=== PATIENT | male | born 1945 | race American Indian/Alaskan Native ===

== ENCOUNTER 2020-02-17 14:53 | Inpatient (IN) | payer MEDICARE ==
[2020-02-17] MEDS ORDERED: MINERAL OIL/PETROLATUM, WHITE OPHTH OINT 3.5 GM OU PRN (15:12)
[2020-02-17] MEDS ORDERED: LIP THERAPY VASELINE TP PRN (15:12)
[2020-02-17] MEDS ORDERED: SODIUM CHLORIDE 0.9% 1000 ML 1,000 ML IV ONE ×3 (15:13→22:13)
[2020-02-17] MEDS ORDERED: SODIUM CHLORIDE 0.45% 1000 ML 1,000 ML IV ONE (15:16)
--- NOTE | 2020-02-17 15:57 | Emergency Department Report ---
HPI <SNEHAL PAINTING III - Last Filed: 02/17/20 22:50> - HPI HPI: This is a 74-year-old -[place] male presents to the emergency department via EMS from his [facility] with complaint of lethargy and decreased oxygen saturation. Patient was found to have an oxygen saturation in the 60s on room air. EMS arrived and gave him bag valve ventilation. He was also found to have a GCS of 3 but they were unable to intubate as the patient's jaw was clenched. He has a past medical history of CVA with left-sided hemiparesis, diabetes, hypertension, dementia, dyslipidemia, PVD. Patient was recently admitted here for similar symptoms. He was found to be Covid 19+ earlier in the month but had 2- recent tests here. <DANIELLE VALERO - Last Filed: 02/18/20 10:10> - General Time Seen by Provider: 02/17/20 15:10 ED Past Medical Hx <SNEHAL PAINTING III - Last Filed: 02/17/20 22:50> - Past Medical History Hx Hypertension: Yes Hx Diabetes: Yes Additional medical history: gout, hyperlipedemia, PVD, syncope, Hemiplegia - Social History Smoking Status: Unknown if ever smoked <DANIELLE VALERO - Last Filed: 02/18/20 10:10> - Medications Home Medications: Home Medications Medication Instructions Recorded Confirmed Last Taken Type Acetaminophen [Acetaminophen TAB] 650 mg PO Q8H PRN 05/02/15 02/18/20 Unknown History Albuterol Sulfate [Albuterol 0.63% 0.63 mg IH Q6H PRN 05/02/15 02/18/20 Unknown History NEBS] Aspirin [Aspirin BABY CHEW TAB] 81 mg PO DAILY 05/02/15 02/18/20 05/01/15 History AtorvaSTATin [Lipitor] 20 mg PO QHS 05/02/15 02/18/20 05/01/15 History Docusate Sodium [Colace CAP] 100 mg PO BID 05/02/15 02/18/20 05/02/15 History Insulin Lispro [HumaLOG VIAL] See Protocol SUB-Q ACHS 05/02/15 02/18/20 05/01/15 History amLODIPine 5 mg PO DAILY 05/02/15 02/18/20 05/01/15 History ED Review of Systems ROS: Stated complaint: RESP ARREST/UNRESPONSIVE Other details as noted in HPI <SNEHAL PAINTING III - Last Filed: 02/17/20 22:50> ROS: Stated complaint: RESP ARREST/UNRESPONSIVE Other details as noted in HPI Comment: Unobtainable due to pts medical conditions <DANIELLE VALERO - Last Filed: 02/18/20 10:10> Physical Exam - Physical Exam Vital Signs: Vital Signs 02/17/20 02/17/20 02/17/20 15:00 15:20 15:30 Pulse Rate 90 Respiratory 12 Rate Blood Pressure 60/42 Blood Pressure 64/42 [Right] O2 Sat by Pulse 97 92 100 Oximetry 02/17/20 02/17/20 02/17/20 15:31 15:45 16:01 Pulse Rate 85 86 91 H Respiratory 29 H 29 H 31 H Rate Blood Pressure 197/159 197/159 Blood Pressure [Right] O2 Sat by Pulse 100 97 Oximetry 02/17/20 02/17/20 02/17/20 16:15 16:31 16:45 Pulse Rate 93 H 93 H 92 H Respiratory 30 H 28 H 31 H Rate Blood Pressure 197/159 197/159 197/159 Blood Pressure [Right] O2 Sat by Pulse 89 91 Oximetry 02/17/20 02/17/20 02/17/20 17:01 17:15 17:31 Pulse Rate 90 85 85 Respiratory 27 H 28 H 24 Rate Blood Pressure 76/53 76/53 76/53 Blood Pressure [Right] O2 Sat by Pulse 94 98 96 Oximetry 02/17/20 02/17/20 02/17/20 17:45 18:01 18:15 Pulse Rate 87 89 Respiratory 28 H 28 H Rate Blood Pressure 76/53 108/89 104/86 Blood Pressure [Right] O2 Sat by Pulse 99 100 78 L Oximetry 02/17/20 02/17/20 02/17/20 18:30 18:31 18:45 Pulse Rate 80 85 83 Respiratory 20 23 Rate Blood Pressure 104/86 56/25 Blood Pressure [Right] O2 Sat by Pulse 100 93 100 Oximetry 02/17/20 02/17/20 02/17/20 19:00 19:15 19:30 Pulse Rate 84 86 83 Respiratory 22 25 H 27 H Rate Blood Pressure 51/26 58/24 56/30 Blood Pressure [Right] O2 Sat by Pulse 99 96 98 Oximetry 02/17/20 02/17/20 02/17/20 19:43 19:45 20:01 Pulse Rate 85 85 61 Respiratory 27 H 31 H Rate Blood Pressure 57/36 57/34 57/34 Blood Pressure [Right] O2 Sat by Pulse 100 100 100 Oximetry 02/17/20 02/17/20 02/17/20 20:15 21:18 21:35 Pulse Rate 101 H Respiratory 25 H Rate Blood Pressure 57/34 Blood Pressure 116/88 83/54 [Right] O2 Sat by Pulse 100 Oximetry <SNEHAL PAINTING III Jennifer - Last Filed: 02/17/20 22:50> - Physical Exam Physical Exam: GENERAL: Patient is ill-appearing and unresponsive. HENT: Normocephalic. Atraumatic. Patient has moist mucous membranes. EYES: Pupils equal reactive to light bilaterally. NECK: Supple. Trachea is midline. CHEST/LUNGS: There is some rhonchi heard. Shallow bradypnea with snoring respirations. There is respiratory distress noted. HEART/CARDIOVASCULAR: Regular. There is no tachycardia. ABDOMEN: Abdomen is soft, nontender. Patient has normal bowel sounds. There is no abdominal distention. SKIN: Skin is warm and dry. NEURO: Patient is unresponsive to verbal, tactile or painful stimuli. MUSCULOSKELETAL: Patient appears to have some right-sided atrophy consistent with his right-sided hemiplegia. <DANIELLE VALERO S - Last Filed: 02/18/20 10:10> ED Course Vital Signs 02/17/20 02/17/20 02/17/20 15:00 15:20 15:30 Pulse Rate 90 Respiratory 12 Rate Blood Pressure 60/42 Blood Pressure 64/42 [Right] O2 Sat by Pulse 97 92 100 Oximetry 02/17/20 02/17/20 02/17/20 15:31 15:45 16:01 Pulse Rate 85 86 91 H Respiratory 29 H 29 H 31 H Rate Blood Pressure 197/159 197/159 Blood Pressure [Right] O2 Sat by Pulse 100 97 Oximetry 02/17/20 02/17/20 02/17/20 16:15 16:31 16:45 Pulse Rate 93 H 93 H 92 H Respiratory 30 H 28 H 31 H Rate Blood Pressure 197/159 197/159 197/159 Blood Pressure [Right] O2 Sat by Pulse 89 91 Oximetry 02/17/20 02/17/20 02/17/20 17:01 17:15 17:31 Pulse Rate 90 85 85 Respiratory 27 H 28 H 24 Rate Blood Pressure 76/53 76/53 76/53 Blood Pressure [Right] O2 Sat by Pulse 94 98 96 Oximetry 02/17/20 02/17/20 02/17/20 17:45 18:01 18:15 Pulse Rate 87 89 Respiratory 28 H 28 H Rate Blood Pressure 76/53 108/89 104/86 Blood Pressure [Right] O2 Sat by Pulse 99 100 78 L Oximetry 02/17/20 02/17/20 02/17/20 18:30 18:31 18:45 Pulse Rate 80 85 83 Respiratory 20 23 Rate Blood Pressure 104/86 56/25 Blood Pressure [Right] O2 Sat by Pulse 100 93 100 Oximetry 02/17/20 02/17/20 02/17/20 19:00 19:15 19:30 Pulse Rate 84 86 83 Respiratory 22 25 H 27 H Rate Blood Pressure 51/26 58/24 56/30 Blood Pressure [Right] O2 Sat by Pulse 99 96 98 Oximetry 02/17/20 02/17/20 02/17/20 19:43 19:45 20:01 Pulse Rate 85 85 61 Respiratory 27 H 31 H Rate Blood Pressure 57/36 57/34 57/34 Blood Pressure [Right] O2 Sat by Pulse 100 100 100 Oximetry 02/17/20 02/17/20 02/17/20 20:15 21:18 21:35 Pulse Rate 101 H Respiratory 25 H Rate Blood Pressure 57/34 Blood Pressure 116/88 83/54 [Right] O2 Sat by Pulse 100 Oximetry - Reevaluation(s) Reevaluation #1: Patient was signed out to me from previous physician to follow-up on CT scan. Patient map above 65. Patient on ventilator. 02/17/20 20:08 Reevaluation #2: Patient had CT done. When patient returned from CT, the patient's blood pressure decreased. Patient will be started on epinephrine drip and given fluids. 02/17/20 22:01 Reevaluation #3: Patient's given fluids. Patient's blood pressure improved to a map of 90. We will give the patient another fluid bolus afterwards and hold the epinephrine drip. 02/17/20 22:[address] is back and shows no acute findings or intracranial hemorrhage. Patient will be started on a heparin drip. 02/17/20 22:41 - Consultations Consultation #1: Hospitalist consulted for admission. Hospitalist to admit patient. 02/17/20 22:41 Consultation #2: I discussed case with Dr. Garay, cardiology. Cardiology recommends heparin drip. 02/17/20 22:50 <SNEHAL PAINTING III - Last Filed: 02/17/20 22:50> - Procedure Description Procedures done: The patient presented without any IV or vascular access. I placed a right proximal tibial intraosseous line with the IO gun. Sterile s chavo flushed easily and there was blood and marrow return. - Central Line Placement Right Femoral Consent Obtained: emergent situation Time Out Performed: Yes Patient Placed on Monitor/Pulse Ox: Yes MD Prep: mask, gown, gloves Central Line Prep: Chlorhexidine scrub Ultrasound Used for Placement: Yes Central Line Lumen Inserted: triple Central Line Position: good blood return, all ports aspirated, flus, sutured in place with nyl Dressing Applied: Tegaderm, sterile gauze/tape Patient Tolerated Procedure: well Complications: none - Intubation Time Out Performed: Yes Paralytic: Succinylcholine Mg Given: 70 Laryngoscope: Selena Size: 4 Assist Device Used: Bougie ET Tube Size: 7.5 Tube Secured Depth (cm): 25 Tube Secured Location: lips Tube Placement Confirmation: visualized tube passing t, equal breath sounds bilat, confirmation by capnometr Patient Tolerated Procedure: well <DANIELLE VALERO - Last Filed: 02/18/20 10:10> ED Medical Decision Making - Lab Data Result diagrams: 02/17/20 16:28 02/17/20 16:28 - Radiology Data Radiology results: report reviewed CT HEAD WITHOUT CONTRAST INDICATION / CLINICAL INFORMATION: AMS. TECHNIQUE: All CT scans at this location are performed using CT dose reduction for ALARA by means of automated exposure control. COMPARISON: None available. FINDINGS: HEMORRHAGE: None. EXTRA-AXIAL SPACES: Prominent extra axial space. VENTRICULAR SYSTEM: Prominence of the bilateral lateral ventricular system including the temporal horns. Anterior bowing of the corpus callosum. CEREBRAL PARENCHYMA: Supra and infratentorial parenchymal volume loss. No evidence of acute large territory infarct. Periventricular and subcortical microvascular changes. MIDLINE SHIFT OR HERNIATION: None. CEREBELLUM / BRAINSTEM: No significant abnormality. ORBITS: Normal as visualized. SOFT TISSUES of HEAD: No significant abnormality. CALVARIUM: No significant abnormality. PARANASAL SINUSES / MASTOID AIR CELLS: Mucosal thickening of the bilateral maxillary sinuses. ADDITIONAL FINDINGS: None. IMPRESSION: 1. Enlargement of the ventricular system. Normal pressure hydrocephalus is a diagnostic consideration given the patient's clinical history. 2. No evidence of acute intracranial hemorrhage or large territory ischemia. <SNEHAL PAINTING III - Last Filed: 02/17/20 22:50> - Lab Data Result diagrams: 02/17/20 16:28 02/17/20 16:28 - EKG Data -: EKG Interpreted by Md EKG shows normal: sinus rhythm, axis, intervals (Prolonged MI interval), QRS complexes (Low voltage), ST-T waves Rate: normal - EKG Data When compared to previous EKG there are: previous EKG unavailable Interpretation: other (Sinus rhythm at 84 bpm, prolonged MI interval, normal axis, low voltage) - Medical Decision Making This patient presents to the emergency department from his nursing facility unresponsive and in respiratory distress. The patient was subsequently intubated. Chest x-ray shows some improvement of the previous pneumonia but he still has some faint bibasilar opacities. Patient started having some hypotension so he was given 2 L of IV fluid but as soon as the fluid stops the patient once again becomes hypotensive. Pressors were started and a central line was placed. Patient's labs shows a leukocytosis of 23,000, some anemia with a hemoglobin of 9, a lactic acidosis, respiratory alkalosis and metabolic acidosis, acute on chronic renal insufficiency and an elevated troponin level. Patient has a mild urinary tract infection and still has signs of the pneumonia. All this together appears consistent with sepsis with septic shock. Blood and urine cultures have been sent and the patient has been started on antibiotics. We are waiting on a CT scan of the head to be completed and if negative will consider heparin for the elevated troponin. Patient will be presented to the nighttime hospitalist for admission to the ICU. <DANIELLE VALERO - Last Filed: 02/18/20 10:10> Critical care attestation.: If time is entered above; I have spent that time in minutes in the direct care of this critically ill patient, excluding procedure time. <SNEHAL PAINTING III - Last Filed: 02/17/20 22:50> Critical Care Time: Yes Critical care time in (mins) excluding proc time.: 45 Critical care attestation.: If time is entered above; I have spent that time in minutes in the direct care of this critically ill patient, excluding procedure time. Critical care time was spent on this patient in doing his initial evaluation, multiple re-evaluati ons, ordering and interpretation of labs and imaging, IV fluid resuscitation for his hypotension, empiric IV antibiotics. Critical Care Time: 45 minutes <DANIELLE VALERO - Last Filed: 02/18/20 10:10> ED Disposition Is pt being admited?: Yes Does the pt Need Aspirin: No Time of Disposition: 22:41 <SNEHAL PAINTING III - Last Filed: 02/17/20 22:50> Is pt being admited?: Yes <DANIELLE VALERO - Last Filed: 02/18/20 10:10> Clinical Impression: Sepsis with multi-organ dysfunction, NSTEMI (non-ST elevated myocardial infarction), Septic shock, Lactic acidosis, Renal insufficiency, Hyperkalemia, Acute kidney injury Acute on chronic renal failure Qualifiers: Acute renal failure type: unspecified Chronic kidney disease stage: unspecified stage Qualified Code(s): N17.9 - Acute kidney failure, unspecified Urinary tract infection Qualifiers: Urinary tract infection type: site unspecified Hematuria presence: with hematuria Qualified Code(s): N39.0 - Urinary tract infection, site not specified Disposition: OP ADMIT IP TO THIS HOSP Condition: Critical
--- NOTE | 2020-02-17 16:01 | XRay Report ---
CHEST 1 VIEW INDICATION: ETT placement. COMPARISON: 02/06/2020 FINDINGS: Support devices: Endotracheal tube has been placed in satisfactory position with tip 1-2 cm above the trinh. Right IJ catheter and esophagogastric tube have been removed. Heart: Stable. Lungs/Pleura: There are mild bibasilar opacities, improved. No pneumothorax. There is probably a smal l right pleural effusion. IMPRESSION: 1. Endotracheal tube in satisfactory position. Signer Name: Chau Luis MD Signed: 02/17/2020 3:57 PM Workstation Name: [id number]
[2020-02-17 16:59] LABS: Hematocrit 28.4 % (35.5-45.6); Hemoglobin 9.1 gm/dl (11.8-15.2); Mean Corpuscular HGB Conc 32 % (32-34); Mean Corpuscular Volume 93 fl (84-94); Platelet Count 178 K/mm3 (140-440); Red Blood Count 3.07 M/mm3 (3.65-5.03); Red Cell Distribution Width 16.8 % (13.2-15.2)
[2020-02-17 17:07] LABS: Albumin 2.3 g/dL (3.9-5); Calcium 7.9 mg/dL (8.4-10.2)
[2020-02-17 17:10] LABS: Partial Thromboplastin Time 26.8 Sec. (24.2-36.6)
[2020-02-17 17:14] LABS: INR 1.19 (0.87-1.13)
[2020-02-17] MEDS ORDERED: SUCCINYLCHOLINE CHLORIDE 200 MG/10 ML INJ MDV IV ONE (18:02)
[2020-02-17 18:25] LABS: Basophils % (Manual) 0 % (0.0-1.8); Eosinophils % (Manual) 0 % (0.0-4.3); RBC Morphology Normal; Total Cells Counted 100
[2020-02-17] MEDS ORDERED: cefTRIAXone/NS 1 GM/50 ML 1 GM/50 ML BAG IV ONE (18:55)
[2020-02-17 18:58] LABS: ABG Base Excess -12.3 mmol/L (-2.0-3.0); ABG HCO3 12.5 mmol/L (20.0-26.0); ABG Methemoglobin 0.5 % (0.0-1.5); ABG Oxygen Saturation 99.5 % (95.0-99.0); ABG PCO2 25.8 mm Hg; ABG PH 7.303 pH Units (7.350-7.450)
[2020-02-17 19:02] LABS: ABG PO2 327.3 mm Hg (80.0-90.0)
[2020-02-17 19:16] LABS: Bacteria,Urine 1+ /HPF (Negative); Bilirubin,Urine NEG (Negative); Blood,Urine MOD (Negative); Color,Urine Yellow (Yellow); Urobilinogen,Urine < 2.0 mg/dL (<2.0)
[2020-02-17] MEDS ORDERED: NORepinephrine/NS 4 MG-250 ML 4 MG/250 ML BAG IV ONE (19:20)
[2020-02-17 19:28] LABS: C-Reactive Protein 18.2 mg/dL (0.00-1.30)
[2020-02-17] MEDS ORDERED: AZITHROMYCIN 500 MG in SODIUM CHLORIDE 0.9% 250ML 250 ML IV ONE (19:30)
[2020-02-17] MEDS: NORepinephrine/NS 4 MG-250 ML 4 MG/250 ML BAG IV SCH (19:38)
[2020-02-17] MEDS ORDERED: EPINEPHrine 1 MG/1 ML 8 MG in SODIUM CHLORIDE 0.9% 250ML 242 ML IV ONE (22:05)
[2020-02-17] MEDS ORDERED: SODIUM CHLORIDE 0.9% 1000 ML 1,000 ML ONE (22:08)
--- NOTE | 2020-02-17 22:20 | Cat Scan Report ---
CT HEAD WITHOUT CONTRAST INDICATION / CLINICAL INFORMATION: AMS. TECHNIQUE: All CT scans at this location are performed using CT dose reduction for ALARA by means of automated e xposure control. COMPARISON: None available. FINDINGS: HEMORRHAGE: None. EXTRA-AXIAL SPACES: Prominent extra axial space. VENTRICULAR SYSTEM: Prominence of the bilateral lateral ventricular system including the temporal hor ns. Anterior bowing of the corpus callosum. CEREBRAL PARENCHYMA: Supra and infratentorial parenchymal volume loss. No evidence of acute large ter ritory infarct. Periventricular and subcortical microvascular changes. MIDLINE SHIFT OR HERNIATION: None. CEREBELLUM / BRAINSTEM: No significant abnormality. ORBITS: Normal as visualized. SOFT TISSUES of HEAD: No significant abnormality. CALVARIUM: No significant abnormality. PARANASAL SINUSES / MASTOID AIR CELLS: Mucosal thickening of the bilateral maxillary sinuses. ADDITIONAL FINDINGS: None. IMPRESSION: 1. Enlargement of the ventricular system. Normal pressure hydrocephalus is a diagnostic consideration given the patient's clinical history. 2. No evidence of acute intracranial hemorrhage or large territory ischemia. Signer Name: Jorge Cantu MD Signed: 02/17/2020 10:16 PM Workstation Name: [id number]
[2020-02-17] MEDS ORDERED: HEPARIN 10,000 UNITS/10 ML VIAL IV ONE (22:39)
[2020-02-17] MEDS: HEPARIN/ 0.45% NACL DRIP 25,000 UNIT/500 ML BAG IV SCH (23:10)
[2020-02-18] MEDS ORDERED: fentaNYL 100 MCG/2 ML INJ ONE (01:27)
[2020-02-18] MEDS: fentaNYL 100 MCG/2 ML INJ IV PRN ×2 (02:20→02:30)
[2020-02-18] MEDS ORDERED: NORepinephrine/NS 4 MG-250 ML 4 MG/250 ML BAG IV ONE (02:23)
[2020-02-18] MEDS ORDERED: MAGNESIUM HYDROXIDE (MOM) ORAL LIQD UDC PO PRN (02:31)
[2020-02-18] MEDS ORDERED: SODIUM CHLORIDE 0.9% 1000 ML 1,000 ML IV SCH (02:45)
--- NOTE | 2020-02-18 02:52 | History and Physical Report ---
History of Present Illness Date of examination: 02/17/20 Date of admission: 02/17/20 22:42 Chief complaint: Lethargy History of present illness: Patient is a 74-year-old -Japanese male with known history of CVA with left hemiparesis, diabetes mellitus, hypertension, dyslipidemia, dementia and peripheral vascular disease brought into the emergency room by EMS from [facility] with a complaint of decreased oxygen saturation and lethargy. Oxygen saturation was said to be in the 60s on room air and patient was placed on bag valve ventilation prior to arrival in the ER. EMS was unable to intubate the patient prior to arrival because patient's jaws were clenched. Patient was recently admitted in this hospital few weeks ago when he had pneumo alverto. He was found to be COVID positive earlier in the month for the last 2 tests were said to be negative. He was unresponsive upon arrival in the emergency room and also found to be hypotensive. Patient was started on pressors and subsequently intubated. Work-up in the emergency room however reveals leukocytosis of 23,000, he had lactic acidosis, acute on chronic kidney failure and elevated troponin. His chest x-ray also reveals presence of bibasilar opacities however there is a little bit of improvement from his previous pneumonia. Patient has been started on empiric IV antibiotics and also placed on heparin drip. [employer] on-call was consulted by the ER physician regarding his elevated troponin. Past History Past Medical History: hypertension, hyperlipidemia, stroke (With left Hemiparesis), other (PVD,Dementia) Past Surgical History: Other (Unknown) Social history: other (Unknown) Family history: other (Unknown) Medications and Allergies Allergies Allergy/AdvReac Type Severity Reaction Status Date / Time No Known Allergies Allergy Unverified 05/01/15 23:41 Home Medications Medication Instructions Recorded Confirmed Last Taken Type Acetaminophen [Acetaminophen TAB] 650 mg PO Q8H PRN 05/02/15 02/18/20 Unknown History Albuterol Sulfate [Albuterol 0.63% 0.63 mg IH Q6H PRN 05/02/15 02/18/20 Unknown History NEBS] Aspirin [Aspirin BABY CHEW TAB] 81 mg PO DAILY 05/02/15 02/18/20 05/01/15 History AtorvaSTATin [Lipitor] 20 mg PO QHS 05/02/15 02/18/20 05/01/15 History Docusate Sodium [Colace CAP] 100 mg PO BID 05/02/15 02/18/20 05/02/15 History Insulin Lispro [HumaLOG VIAL] See Protocol SUB-Q ACHS 05/02/15 02/18/20 05/01/15 History amLODIPine 5 mg PO DAILY 05/02/15 02/18/20 05/01/15 History Active Meds: Active Medications Fentanyl (Sublimaze) 50 mcg IV Q10MIN PRN PRN Reason: ANALGESIA Hydrophilic Ointment (Vaseline Lip Therapy) 1 applic TP Q2HR PRN PRN Reason: Dry Lips Norepinephrine (Levophed Drip 4 Mg/Ns 250 Ml) 4 mg in 250 mls @ 7.5 mls/hr IV TITR LOS; Protocol Last Titration: 02/17/20 22:45 Dose: 30 mcg/min, 112.5 mls/hr Documented by: Epinephrine 8 mg/ Sodium (Chloride) 250 mls @ 3.75 mls/hr IV TITR ONE; Protocol Stop: 02/20/20 16:44 Last Titration: 02/17/20 23:30 Dose: 3 mcg/min, 5.625 mls/hr Documented by: Heparin Sodium/Sodium Chloride (Heparin/ 0.45% Nacl-25,000 Unit/500 Ml) 25,000 unit in 500 mls @ 20 mls/hr IV TITRATE LOS; Protocol Last Admin: 02/17/20 23:10 Dose: 1,000 units/hr, 20 mls/hr Documented by: Fentanyl Citrate (Fentanyl Drip Premix) 2,000 mcg in 100 mls @ 4.309 mls/hr IV TITR LOS; Protocol Ceftriaxone Sodium (Rocephin/Ns 2 Gm/100 Ml) 2 gm in 100 mls @ 200 mls/hr IV Q24HR LOS; Protocol Azithromycin 500 mg/ Sodium (Chloride) 250 mls @ 250 mls/hr IV Q24HR LOS; Protocol Sodium Chloride (Nacl 0.9% 1000 Ml) 1,000 mls @ 75 mls/hr IV DIRECT LOS Magnesium Hydroxide (Milk Of Magnesia) 30 ml PO Q4H PRN PRN Reason: Constipation Multi-Ingred Cream/Lotion/Oil/Oint (Artificial Tears Ophth Oint) 1 applic OU Q4HR PRN PRN Reason: Dry Eye(s) Sodium Chloride (Sodium Chloride Flush Syringe 10 Ml) 10 ml IV BID LOS Sodium Chloride (Sodium Chloride Flush Syringe 10 Ml) 10 ml IV PRN PRN PRN Reason: LINE FLUSH Review of Systems ROS unobtainable: due to mental status Exam - Constitutional Vitals: Temp Pulse Resp BP Pulse Ox 99.1 F 129 H 22 128/78 100 02/17/20 20:05 02/18/20 00:45 02/18/20 00:45 02/18/20 00:45 02/18/20 00:45 General appearance: Present: no acute distress, mild distress, well-nourished - EENT Eyes: Present: PERRL, EOM intact. Absent: scleral icterus ENT: hearing intact, clear oral mucosa, dentition normal - Neck Neck: Present: supple, normal ROM - Respiratory Respiratory: bilateral: diminished - Cardiovascular Rhythm: regular Heart Sounds: Present: S1 & S2. Absent: systolic murmur, diastolic murmur - Extremities Extremities: no ischemia, pulses intact, pulses symmetrical, No edema, Full ROM Peripheral Pulses: within normal limits - Abdominal General gastrointestinal: Present: soft, non-tender, non-distended, normal bowel sounds. Absent: mass - Integumentary Integumentary: Present: clear, warm, dry - Musculoskeletal Musculoskeletal: other (Intubated and sedated) - Psychiatric Psychiatric: cooperative - Neurologic Neurologic: other (Intubated ) HEART Score - HEART Score Troponin: Troponin T 0.748 ng/mL (0.00-0.029) H* 02/17/20 16:28 Results - Labs CBC & Chem 7: 02/17/20 16:28 02/17/20 16:28 Labs: Abnormal lab results 02/17/20 02/17/20 02/17/20 Range/Units 16:28 16:28 16:28 WBC 23.5 H (4.5-11.0) K/mm3 RBC 3.07 L (3.65-5.03) M/mm3 Hgb 9.1 L (11.8-15.2) gm/dl Hct 28.4 L (35.5-45.6) % RDW 16.8 H (13.2-15.2) % Seg Neuts % (Manual) 84.0 H (40.0-70.0) % Lymphocytes % (Manual) 8.0 L (13.4-35.0) % Monocytes % (Manual) 8.0 H (0.0-7.3) % Seg Neutrophils # Man 19.7 H (1.8-7.7) K/mm3 Monocytes # (Manual) 1.9 H (0.0-0.8) K/mm3 PT 15.3 H (12.2-14.9) Sec. INR 1.19 H (0.87-1.13) D-Dimer (0-234) ng/mlDDU ABG pH (7.350-7.450) pH Units ABG pO2 (80.0-90.0) mm Hg ABG HCO3 (20.0-26.0) mmol/L ABG O2 Saturation (95.0-99.0) % ABG Base Excess (-2.0-3.0) mmol/L ABG Hemoglobin (14.0-18.0) gm/dl Sodium 136 L (137-145) mmol/L Potassium 5.4 H (3.6-5.0) mmol/L Carbon Dioxide 15 L (22-30) mmol/L BUN 91 H (9-20) mg/dL Creatinine 3.7 H D (0.8-1.3) mg/dL Glucose 120 H (75-100) mg/dL Lactic Acid (0.7-2.0) mmol/L Calcium 7.9 L (8.4-10.2) mg/dL Ferritin (30.0-300.0) ng/mL AST 65 H (5-40) units/L ALT 81 H (7-56) units/L Lactate Dehydrogenase (91-180) units/L Troponin T (0.00-0.029) ng/mL C-Reactive Protein (0.00-1.30) mg/dL NT-Pro-B Natriuret Pep (0-900) pg/mL Total Protein 5.4 L (6.3-8.2) g/dL Albumin 2.3 L (3.9-5) g/dL Urine WBC (Auto) (0.0-6.0) /HPF 02/17/20 02/17/20 02/17/20 Range/Units 16:28 16:28 16:28 WBC (4.5-11.0) K/mm3 RBC (3.65-5.03) M/mm3 Hgb (11.8-15.2) gm/dl Hct (35.5-45.6) % RDW (13.2-15.2) % Seg Neuts % (Manual) (40.0-70.0) % Lymphocytes % (Manual) (13.4-35.0) % Monocytes % (Manual) (0.0-7.3) % Seg Neutrophils # Man (1.8-7.7) K/mm3 Monocytes # (Manual) (0.0-0.8) K/mm3 PT (12.2-14.9) Sec. INR (0.87-1.13) D-Dimer > 69696 H (0-234) ng/mlDDU ABG pH (7.350-7.450) pH Units ABG pO2 (80.0-90.0) mm Hg ABG HCO3 (20.0-26.0) mmol/L ABG O2 Saturation (95.0-99.0) % ABG Base Excess (-2.0-3.0) mmol/L ABG Hemoglobin (14.0-18.0) gm/dl Sodium (137-145) mmol/L Potassium (3.6-5.0) mmol/L Carbon Dioxide (22-30) mmol/L BUN (9-20) mg/dL Creatinine (0.8-1.3) mg/dL Glucose (75-100) mg/dL Lactic Acid 2.70 H* (0.7-2.0) mmol/L Calcium (8.4-10.2) mg/dL Ferritin (30.0-300.0) ng/mL AST (5-40) units/L ALT (7-56) units/L Lactate Dehydrogenase (91-180) units/L Troponin T 0.748 H* (0.00-0.029) ng/mL C-Reactive Protein (0.00-1.30) mg/dL NT-Pro-B Natriuret Pep 1980 H (0-900) pg/mL Total Protein (6.3-8.2) g/dL Albumin (3.9-5) g/dL Urine WBC (Auto) (0.0-6.0) /HPF 08/02/17/20 02/17/20 Range/Units 16:28 16:28 18:35 WBC (4.5-11.0) K/mm3 RBC (3.65-5.03) M/mm3 Hgb (11.8-15.2) gm/dl Hct (35.5-45.6) % RDW (13.2-15.2) % Seg Neuts % (Manual) (40.0-70.0) % Lymphocytes % (Manual) (13.4-35.0) % Monocytes % (Manual) (0.0-7.3) % Seg Neutrophils # Man (1.8-7.7) K/mm3 Monocytes # (Manual) (0.0-0.8) K/mm3 PT (12.2-14.9) Sec. INR (0.87-1.13) D-Dimer (0-234) ng/mlDDU ABG pH 7.303 L (7.350-7.450) pH Units ABG pO2 327.3 H (80.0-90.0) mm Hg ABG HCO3 12.5 L (20.0-26.0) mmol/L ABG O2 Saturation 99.5 H (95.0-99.0) % ABG Base Excess -12.3 L (-2.0-3.0) mmol/L ABG Hemoglobin 11.2 L (14.0-18.0) gm/dl Sodium (137-145) mmol/L Potassium (3.6-5.0) mmol/L Carbon Dioxide (22-30) mmol/L BUN (9-20) mg/dL Creatinine (0.8-1.3) mg/dL Glucose (75-100) mg/dL Lactic Acid (0.7-2.0) mmol/L Calcium (8.4-10.2) mg/dL Ferritin 1191.0 H (30.0-300.0) ng/mL AST (5-40) units/L ALT (7-56) units/L Lactate Dehydrogenase 381 H (91-180) units/L Troponin T (0.00-0.029) ng/mL C-Reactive Protein 18.20 H (0.00-1.30) mg/dL NT-Pro-B Natriuret Pep (0-900) pg/mL Total Protein (6.3-8.2) g/dL Albumin (3.9-5) g/dL Urine WBC (Auto) (0.0-6.0) /HPF 02/17/20 Range/Units Unknown WBC (4.5-11.0) K/mm3 RBC (3.65-5.03) M/mm3 Hgb (11.8-15.2) gm/dl Hct (35.5-45.6) % RDW (13.2-15.2) % Seg Neuts % (Manual) (40.0-70.0) % Lymphocytes % (Manual) (13.4-35.0) % Monocytes % (Manual) (0.0-7.3) % Seg Neutrophils # Man (1.8-7.7) K/mm3 Monocytes # (Manual) (0.0-0.8) K/mm3 PT (12.2-14.9) Sec. INR (0.87-1.13) D-Dimer (0-234) ng/mlDDU ABG pH (7.350-7.450) pH Units ABG pO2 (80.0-90.0) mm Hg ABG HCO3 (20.0-26.0) mmol/L ABG O2 Saturation (95.0-99.0) % ABG Base Excess (-2.0-3.0) mmol/L ABG Hemoglobin (14.0-18.0) gm/dl Sodium (137-145) mmol/L Potassium (3.6-5.0) mmol/L Carbon Dioxide (22-30) mmol/L BUN (9-20) mg/dL Creatinine (0.8-1.3) mg/dL Glucose (75-100) mg/dL Lactic Acid (0.7-2.0) mmol/L Calcium (8.4-10.2) mg/dL Ferritin (30.0-300.0) ng/mL AST (5-40) units/L ALT (7-56) units/L Lactate Dehydrogenase (91-180) units/L Troponin T (0.00-0.029) ng/mL C-Reactive Protein (0.00-1.30) mg/dL NT-Pro-B Natriuret Pep (0-900) pg/mL Total Protein (6.3-8.2) g/dL Albumin (3.9-5) g/dL Urine WBC (Auto) 17.0 H (0.0-6.0) /HPF Assessment and Plan - Patient Problems (1) Septic shock Current Visit: Yes Status: Acute Plan to address problem: Possibly secondary to the underlying infection. Patient currently on antibiotics and pressors. We will await further evaluation by parcel [employer]. (2) Acute on chronic renal failure Current Visit: Yes Status: Acute Qualifiers: Acute renal failure type: unspecified Chronic kidney disease stage: unspecified stage Qualified Code(s): N17.9 - Acute kidney failure, unsp ecified; N18.9 - Chronic kidney disease, unspecified Plan to address problem: Patient placed on IV fluid will monitor BUN and creatinine. (3) Acute respiratory failure with hypoxia Current Visit: No Status: Acute Plan to address problem: Possibly secondary to the underlying pneumonia. We will place a consult to infectious disease for evaluation and recommendation. Patient was recently treated for pneumonia and COVID-19. (4) DVT prophylaxis Current Visit: No Status: Acute Plan to address problem: Patient currently on anticoagulation.
--- NOTE | 2020-02-18 05:15 | XRay Report ---
CHEST 1 VIEW INDICATION: follow up respiratory failure. COMPARISON: Previous day. FINDINGS: Support devices: NG tube and endotracheal tube in satisfactory position. Heart: Within normal limits. Lungs/Pleura: Increasing infiltrate right mid and lower zone. Additional findings: None. IMPRESSION: Increasing right mid and lower zone pneumonia. Signer Name: Ervin Galvez MD Signed: 02/18/2020 5:10 AM Workstation Name: [id number]
[2020-02-18 06:34] LABS: ABG Base Excess -15.7 mmol/L (-2.0-3.0); ABG HCO3 10.5 mmol/L (20.0-26.0); ABG Methemoglobin 0.6 % (0.0-1.5); ABG Oxygen Saturation 98.9 % (95.0-99.0); ABG PCO2 26.4 mm Hg; ABG PH 7.217 pH Units (7.350-7.450); ABG PO2 165.7 mm Hg (80.0-90.0)
--- NOTE | 2020-02-18 08:01 | Progress Note ---
Assessment and Plan Assessment and plan: --Acute respiratory failure with hypoxia Current Visit: No Status: Acute Plan to address problem: Requiring intubation and ventilatory support possibly secondary to the underlying pneumonia. Pulmonary critical consulted Nebulizers and supportive care --Septic shock/secondary to sepsis due to pneumonia Current Visit: Yes Status: Acute Plan to address problem: Continue vasopressors, treat underlying pneumonia Admitted to ICU, IV fluids --COVID-19 test negative x2 during last admission Current Visit: Yes Status: Acute Plan to address problem: However patient has very high levels of inflammatory markers ID consulted, trend the markers Follow hardwick PCR test today Isolation precautions and PPE protocols --Acute on chronic kidney disease Current Visit: Yes Status: Acute Plan to address problem: Secondary to ATN, gentle hydration Avoid nephrotoxins, monitor renal function Consult nephrology if no improvement --Elevated D-dimers Current Visit: Yes Status: Acute Plan to address problem: More than 10,000, patient is already on heparin drip Unable to get CTA chest as patient is intubated and critically ill. Supportive care --Sepsis; secondary to right-sided pneumonia/HCAP Current Visit: Yes Status: Acute Plan to address problem: Patient placed on IV fluid will monitor BUN and creatinine. -- DVT prophylaxis Current Visit: No Status: Acute Plan to address problem: Patient currently on anticoagulation. Elderly male patient from [facility] with multiple medical problems Very poor prognosis, patient is full CODE STATUS We will try to contact family and discussed patient's condition and the goals of treatment. Critical care time 40 minutes The high probability of a clinically significant, sudden or life threatening deterioration of the [Respiratory, renal, ID] system(s) required my full and direct attention, intervention and personal management.The aggregate critical care time was [40] minutes. This time is in addition to time spent performing , reported procedures but includes the following: [x] Data Review and interpretation [x] Patient assessment and monitoring of vital signs [x] Documentation [x] Medication orders and management History Interval history: I have seen and examined the patient in ICU at the bedside Patient is intubated on ventilatory support. Sedated No new overnight events reported by nursing Vital signs noted Hospitalist Physical - Constitutional Vitals: Temp Pulse Resp BP Pulse Ox 97.4 F L 115 H 16 93/63 100 02/18/20 03:30 02/18/20 07:31 02/18/20 07:31 02/18/20 07:31 02/18/20 07:31 General appearance: Present: no acute distress, mild distress, well-nourished - EENT Eyes: Present: PERRL, EOM intact - Neck Neck: Present: supple, normal ROM - Respiratory Respiratory effort: normal Respiratory: bilateral: diminished, rhonchi, negative: rales, wheezing - Cardiovascular Rhythm: regular Heart Sounds: Present: S1 & S2 - Extremities Extremities: no ischemia, No edema - Abdominal General gastrointestinal: soft, non-tender, non-distended, normal bowel sounds - Integumentary Integumentary: Present: clear, warm - Psychiatric Psychiatric: appropriate mood/affect, cooperative - Neurologic Neurologic: CNII-XII intact, moves all extremities HEART Score - HEART Score Troponin: WBC 23.5 K/mm3 (4.5-11.0) H 02/17/20 16:28 RBC 3.07 M/mm3 (3.65-5.03) L 02/17/20 16:28 Hgb 9.1 gm/dl (11.8-15.2) L 02/17/20 16:28 Hct 28.4 % (35.5-45.6) L 02/17/20 16:28 MCV 93 fl (84-94) 02/17/20 16:28 MCH 29 pg (28-32) 02/17/20 16:28 MCHC 32 % (32-34) 02/17/20 16:28 RDW 16.8 % (13.2-15.2) H 02/17/20 16:28 Plt Count 178 K/mm3 (140-440) 02/17/20 16:28 Add Manual Diff Complete 02/17/20 16:28 Total Counted 100 02/17/20 16:28 Seg Neuts % (Manual) 84.0 % (40.0-70.0) H 02/17/20 16:28 Band Neutrophils % 0 % 02/17/20 16:28 Lymphocytes % (Manual) 8.0 % (13.4-35.0) L 02/17/20 16:28 Reactive Lymphs % (Man) 0 % 02/17/20 16:28 Monocytes % (Manual) 8.0 % (0.0-7.3) H 02/17/20 16:28 Eosinophils % (Manual) 0 % (0.0-4.3) 02/17/20 16:28 Basophils % (Manual) 0 % (0.0-1.8) 02/17/20 16:28 Metamyelocytes % 0 % 02/17/20 16:28 Myelocytes % 0 % 02/17/20 16:28 Promyelocytes % 0 % 02/17/20 16:28 Blast Cells % 0 % 02/17/20 16:28 Nucleated RBC % Not Reportable 02/17/20 16:28 Seg Neutrophils # Man 19.7 K/mm3 (1.8-7.7) H 02/17/20 16:28 Band Neutrophils # 0.0 K/mm3 02/17/20 16:28 Lymphocytes # (Manual) 1.9 K/mm3 (1.2-5.4) 02/17/20 16:28 Abs React Lymphs (Man) 0.0 K/mm3 02/17/20 16:28 Monocytes # (Manual) 1.9 K/mm3 (0.0-0.8) H 02/17/20 16:28 Eosinophils # (Manual) 0.0 K/mm3 (0.0-0.4) 02/17/20 16:28 Basophils # (Manual) 0.0 K/mm3 (0.0-0.1) 02/17/20 16:28 Metamyelocytes # 0.0 K/mm3 02/17/20 16:28 Myelocytes # 0.0 K/mm3 02/17/20 16:28 Promyelocytes # 0.0 K/mm3 02/17/20 16:28 Blast Cells # 0.0 K/mm3 02/17/20 16:28 WBC Morphology Not Reportable 02/17/20 16:28 Hypersegmented Neuts Not Reportable 02/17/20 16:28 Hyposegmented Neuts Not Reportable 02/17/20 16:28 Hypogranular Neuts Not Reportable 02/17/20 16:28 Smudge Cells Not Reportable 02/17/20 16:28 Toxic Granulation Not Reportable 02/17/20 16:28 Toxic Vacuolation Not Reportable 02/17/20 16:28 Dohle Bodies Not Reportable 02/17/20 16:28 Pelger-Huet Anomaly Not Reportable 02/17/20 16:28 Krys Rods Not Reportable 02/17/20 16:28 Platelet Estimate Not Reportable 02/17/20 16:28 Clumped Platelets Not Reportable 02/17/20 16:28 Plt Clumps, EDTA Not Reportable 02/17/20 16:28 Large Platelets Not Reportable 02/17/20 16:28 Giant Platelets Not Reportable 02/17/20 16:28 Platelet Satelliting Not Reportable 02/17/20 16:28 Plt Morphology Comment Not Reportable 02/17/20 16:28 RBC Morphology Normal 02/17/20 16:28 Dimorphic RBCs Not Reportable 02/17/20 16:28 Polychromasia Not Reportable 02/17/20 16:28 Hypochromasia Not Reportable 02/17/20 16:28 Poikilocytosis Not Reportable 02/17/20 16:28 Anisocytosis Not Reportable 02/17/20 16:28 Microcytosis Not Reportable 02/17/20 16:28 Macrocytosis Not Reportable 02/17/20 16:28 Spherocytes Not Reportable 02/17/20 16:28 Pappenheimer Bodies Not Reportable 02/17/20 16:28 Sickle Cells Not Reportable 02/17/20 16:28 Target Cells Not Reportable 02/17/20 16:28 Tear Drop Cells Not Reportable 02/17/20 16:28 Ovalocytes Not Reportable 02/17/20 16:28 Helmet Cells Not Reportable 02/17/20 16:28 Lazo-[place] Bodies Not Reportable 02/17/20 16:28 [place] Rings Not Reportable 02/17/20 16:28 Christo Cells Not Reportable 02/17/20 16:28 Bite Cells Not Reportable 02/17/20 16:28 Crenated Cell Not Reportable 02/17/20 16:28 Elliptocytes Not Reportable 02/17/20 16:28 Acanthocytes (Spur) Not Reportable 02/17/20 16:28 Rouleaux Not Reportable 02/17/20 16:28 Hemoglobin C Crystals Not Reportable 02/17/20 16:28 Schistocytes Not Reportable 02/17/20 16:28 Malaria parasites Not Reportable 02/17/20 16:28 Keron Bodies Not Reportable 02/17/20 16:28 Hem Pathologist Commnt No 02/17/20 16:28 PT 15.3 Sec. (12.2-14.9) H 02/17/20 16:28 INR 1.19 (0.87-1.13) H 02/17/20 16:28 APTT 26.8 Sec. (24.2-36.6) 02/17/20 16:28 D-Dimer > 99214 ng/mlDDU (0-234) H 02/17/20 16:28 ABG pH 7.217 pH Units (7.350-7.450) L 02/18/20 05:20 ABG pCO2 26.4 mm Hg 02/18/20 05:20 ABG pO2 165.7 mm Hg (80.0-90.0) H 02/18/20 05:20 ABG HCO3 10.5 mmol/L (20.0-26.0) L 02/18/20 05:20 ABG O2 Saturation 98.9 % (95.0-99.0) 02/18/20 05:20 ABG O2 Content 14.4 (0.0-44) 02/18/20 05:20 ABG Base Excess -15.7 mmol/L (-2.0-3.0) L 02/18/20 05:20 ABG Hemoglobin 10.3 gm/dl (14.0-18.0) L 02/18/20 05:20 ABG Carboxyhemoglobin 1.1 % (0.0-5.0) 02/18/20 05:20 ABG Methemoglobin 0.6 % (0.0-1.5) 02/18/20 05:20 Oxyhemoglobin 97.2 % (95.0-99.0) 02/18/20 05:20 FiO2 50 % 02/18/20 05:20 Sodium 136 mmol/L (137-145) L 02/17/20 16:28 Potassium 5.4 mmol/L (3.6-5.0) H 02/17/20 16:28 Chloride 102.5 mmol/L (98-107) 02/17/20 16:28 Carbon Dioxide 15 mmol/L (22-30) L 02/17/20 16:28 Anion Gap 24 mmol/L 02/17/20 16:28 BUN 91 mg/dL (9-20) H 02/17/20 16:28 Creatinine 3.7 mg/dL (0.8-1.3) H D 02/17/20 16:28 Estimated GFR 19 ml/min 02/17/20 16:28 BUN/Creatinine Ratio 25 % 02/17/20 16:28 Glucose 120 mg/dL (75-100) H 02/17/20 16:28 Lactic Acid 1.90 mmol/L (0.7-2.0) 02/17/20 22:56 Calcium 7.9 mg/dL (8.4-10.2) L 02/17/20 16:28 Ferritin 1191.0 ng/mL (30.0-300.0) H 02/17/20 16:28 Total Bilirubin 0.50 mg/dL (0.1-1.2) 02/17/20 16:28 AST 65 units/L (5-40) H 02/17/20 16:28 ALT 81 units/L (7-56) H 02/17/20 16:28 Alkaline Phosphatase 101 units/L (35-129) 02/17/20 16:28 Lactate Dehydrogenase 381 units/L (91-180) H 02/17/20 16:28 Troponin T 0.748 ng/mL (0.00-0.029) H* 02/17/20 16:28 C-Reactive Protein 18.20 mg/dL (0.00-1.30) H 02/17/20 16:28 NT-Pro-B Natriuret Pep 1980 pg/mL (0-900) H 02/17/20 16:28 Total Protein 5.4 g/dL (6.3-8.2) L 02/17/20 16:28 Albumin 2.3 g/dL (3.9-5) L 02/17/20 16:28 Albumin/Globulin Ratio 0.7 % 02/17/20 16:28 TSH 3.490 mlU/mL (0.270-4.200) 02/17/20 16:28 Urine Color Yellow (Yellow) 02/17/20 Unknown Urine Turbidity Slightly-cloudy (Clear) 02/17/20 Unknown Urine pH 5.0 (5.0-7.0) 02/17/20 Unknown Ur Specific [place] 1.010 (1.003-1.030) 02/17/20 Unknown Urine Protein 30 mg/dl mg/dL (Negative) 02/17/20 Unknown Urine Glucose (UA) Neg mg/dL (Negative) 02/17/20 Unknown Urine Ketones Neg mg/dL (Negative) 02/17/20 Unknown Urine Blood Mod (Negative) 02/17/20 Unknown Urine Nitrite Neg (Negative) 02/17/20 Unknown Urine Bilirubin Neg (Negative) 02/17/20 Unknown Urine Urobilinogen < 2.0 mg/dL (<2.0) 02/17/20 Unknown Ur Leukocyte Esterase Mod (Negative) 02/17/20 Unknown Urine WBC (Auto) 17.0 /HPF (0.0-6.0) H 02/17/20 Unknown Urine RBC (Auto) 17.0 /HPF (0.0-6.0) 02/17/20 Unknown U Epithel Cells (Auto) 4.0 /HPF (0-13.0) 02/17/20 Unknown Urine Bacteria (Auto) 1+ /HPF (Negative) 02/17/20 Unknown Urine Yeast (Budding) 2+ /HPF 02/17/20 Unknown Results - Labs CBC & Chem 7: 02/19/20 04:00 02/19/20 09:10 Labs: Laboratory Last Values WBC 23.5 K/mm3 (4.5-11.0) H 02/17/20 16:28 RBC 3.07 M/mm3 (3.65-5.03) L 02/17/20 16:28 Hgb 9.1 gm/dl (11.8-15.2) L 02/17/20 16:28 Hct 28.4 % (35.5-45.6) L 02/17/20 16:28 MCV 93 fl (84-94) 02/17/20 16:28 MCH 29 pg (28-32) 02/17/20 16:28 MCHC 32 % (32-34) 02/17/20 16:28 RDW 16.8 % (13.2-15.2) H 02/17/20 16:28 Plt Count 178 K/mm3 (140-440) 02/17/20 16:28 Add Manual Diff Complete 02/17/20 16:28 Total Counted 100 02/17/20 16:28 Seg Neuts % (Manual) 84.0 % (40.0-70.0) H 02/17/20 16:28 Band Neutrophils % 0 % 02/17/20 16:28 Lymphocytes % (Manual) 8.0 % (13.4-35.0) L 02/17/20 16:28 Reactive Lymphs % (Man) 0 % 02/17/20 16:28 Monocytes % (Manual) 8.0 % (0.0-7.3) H 02/17/20 16:28 Eosinophils % (Manual) 0 % (0.0-4.3) 02/17/20 16:28 Basophils % (Manual) 0 % (0.0-1.8) 02/17/20 16:28 Metamyelocytes % 0 % 02/17/20 16:28 Myelocytes % 0 % 02/17/20 16:28 Promyelocytes % 0 % 02/17/20 16:28 Blast Cells % 0 % 02/17/20 16:28 Nucleated RBC % Not Reportable 02/17/20 16:28 Seg Neutrophils # Man 19.7 K/mm3 (1.8-7.7) H 02/17/20 16:28 Band Neutrophils # 0.0 K/mm3 02/17/20 16:28 Lymphocytes # (Manual) 1.9 K/mm3 (1.2-5.4) 02/17/20 16:28 Abs React Lymphs (Man) 0.0 K/mm3 02/17/20 16:28 Monocytes # (Manual) 1.9 K/mm3 (0.0-0.8) H 02/17/20 16:28 Eosinophils # (Manual) 0.0 K/mm3 (0.0-0.4) 02/17/20 16:28 Basophils # (Manual) 0.0 K/mm3 (0.0-0.1) 02/17/20 16:28 Metamyelocytes # 0.0 K/mm3 02/17/20 16:28 Myelocytes # 0.0 K/mm3 02/17/20 16:28 Promyelocytes # 0.0 K/mm3 02/17/20 16:28 Blast Cells # 0.0 K/mm3 02/17/20 16:28 WBC Morphology Not Reportable 02/17/20 16:28 Hypersegmented Neuts Not Reportable 02/17/20 16:28 Hyposegmented Neuts Not Reportable 02/17/20 16:28 Hypogranular Neuts Not Reportable 02/17/20 16:28 Smudge Cells Not Reportable 02/17/20 16:28 Toxic Granulation Not Reportable 02/17/20 16:28 Toxic Vacuolation Not Reportable 02/17/20 16:28 Dohle Bodies Not Reportable 02/17/20 16:28 Pelger-Huet Anomaly Not Reportable 02/17/20 16:28 Krys Rods Not Reportable 02/17/20 16:28 Platelet Estimate Not Reportable 02/17/20 16:28 Clumped Platelets Not Reportable 02/17/20 16:28 Plt Clumps, EDTA Not Reportable 02/17/20 16:28 Large Platelets Not Reportable 02/17/20 16:28 Giant Platelets Not Reportable 02/17/20 16:28 Platelet Satelliting Not Reportable 02/17/20 16:28 Plt Morphology Comment Not Reportable 02/17/20 16:28 RBC Morphology Normal 02/17/20 16:28 Dimorphic RBCs Not Reportable 02/17/20 16:28 Polychromasia Not Reportable 02/17/20 16:28 Hypochromasia Not Reportable 02/17/20 16:28 Poikilocytosis Not Reportable 02/17/20 16:28 Anisocytosis Not Reportable 02/17/20 16:28 Microcytosis Not Reportable 02/17/20 16:28 Macrocytosis Not Reportable 02/17/20 16:28 Spherocytes Not Reportable 02/17/20 16:28 Pappenheimer Bodies Not Reportable 02/17/20 16:28 Sickle Cells Not Reportable 02/17/20 16:28 Target Cells Not Reportable 02/17/20 16:28 Tear Drop Cells Not Reportable 02/17/20 16:28 Ovalocytes Not Reportable 02/17/20 16:28 Helmet Cells Not Reportable 02/17/20 16:28 Lazo-[place] Bodies Not Reportable 02/17/20 16:28 [place] Rings Not Reportable 02/17/20 16:28 Christo Cells Not Reportable 02/17/20 16:28 Bite Cells Not Reportable 02/17/20 16:28 Crenated Cell Not Reportable 02/17/20 16:28 Elliptocytes Not Reportable 02/17/20 16:28 Acanthocytes (Spur) Not Reportable 08/28/20 16:28 Rouleaux Not Reportable 02/17/20 16:28 Hemoglobin C Crystals Not Reportable 02/17/20 16:28 Schistocytes Not Reportable 02/17/20 16:28 Malaria parasites Not Reportable 02/17/20 16:28 Keron Bodies Not Reportable 02/17/20 16:28 Hem Pathologist Commnt No 02/17/20 16:28 PT 15.3 Sec. (12.2-14.9) H 02/17/20 16:28 INR 1.19 (0.87-1.13) H 02/17/20 16:28 APTT 26.8 Sec. (24.2-36.6) 02/17/20 16:28 D-Dimer > 47862 ng/mlDDU (0-234) H 02/17/20 16:28 ABG pH 7.217 pH Units (7.350-7.450) L 02/18/20 05:20 ABG pCO2 26.4 mm Hg 02/18/20 05:20 ABG pO2 165.7 mm Hg (80.0-90.0) H 02/18/20 05:20 ABG HCO3 10.5 mmol/L (20.0-26.0) L 02/18/20 05:20 ABG O2 Saturation 98.9 % (95.0-99.0) 02/18/20 05:20 ABG O2 Content 14.4 (0.0-44) 02/18/20 05:20 ABG Base Excess -15.7 mmol/L (-2.0-3.0) L 02/18/20 05:20 ABG Hemoglobin 10.3 gm/dl (14.0-18.0) L 02/18/20 05:20 ABG Carboxyhemoglobin 1.1 % (0.0-5.0) 02/18/20 05:20 ABG Methemoglobin 0.6 % (0.0-1.5) 02/18/20 05:20 Oxyhemoglobin 97.2 % (95.0-99.0) 02/18/20 05:20 FiO2 50 % 02/18/20 05:20 Sodium 136 mmol/L (137-145) L 02/17/20 16:28 Potassium 5.4 mmol/L (3.6-5.0) H 02/17/20 16:28 Chloride 102.5 mmol/L (98-107) 02/17/20 16:28 Carbon Dioxide 15 mmol/L (22-30) L 02/17/20 16:28 Anion Gap 24 mmol/L 02/17/20 16:28 BUN 91 mg/dL (9-20) H 02/17/20 16:28 Creatinine 3.7 mg/dL (0.8-1.3) H D 02/17/20 16:28 Estimated GFR 19 ml/min 02/17/20 16:28 BUN/Creatinine Ratio 25 % 02/17/20 16:28 Glucose 120 mg/dL (75-100) H 02/17/20 16:28 Lactic Acid 1.90 mmol/L (0.7-2.0) 02/17/20 22:56 Calcium 7.9 mg/dL (8.4-10.2) L 02/17/20 16:28 Ferritin 1191.0 ng/mL (30.0-300.0) H 02/17/20 16:28 Total Bilirubin 0.50 mg/dL (0.1-1.2) 02/17/20 16:28 AST 65 units/L (5-40) H 02/17/20 16:28 ALT 81 units/L (7-56) H 02/17/20 16:28 Alkaline Phosphatase 101 units/L (35-129) 02/17/20 16:28 Lactate Dehydrogenase 381 units/L (91-180) H 02/17/20 16:28 Troponin T 0.748 ng/mL (0.00-0.029) H* 02/17/20 16:28 C-Reactive Protein 18.20 mg/dL (0.00-1.30) H 02/17/20 16:28 NT-Pro-B Natriuret Pep 1980 pg/mL (0-900) H 02/17/20 16:28 Total Protein 5.4 g/dL (6.3-8.2) L 02/17/20 16:28 Albumin 2.3 g/dL (3.9-5) L 02/17/20 16:28 Albumin/Globulin Ratio 0.7 % 02/17/20 16:28 TSH 3.490 mlU/mL (0.270-4.200) 02/17/20 16:28 Urine Color Yellow (Yellow) 02/17/20 Unknown Urine Turbidity Slightly-cloudy (Clear) 02/17/20 Unknown Urine pH 5.0 (5.0-7.0) 02/17/20 Unknown Ur Specific [place] 1.010 (1.003-1.030) 02/17/20 Unknown Urine Protein 30 mg/dl mg/dL (Negative) 02/17/20 Unknown Urine Glucose (UA) Neg mg/dL (Negative) 02/17/20 Unknown Urine Ketones Neg mg/dL (Negative) 02/17/20 Unknown Urine Blood Mod (Negative) 02/17/20 Unknown Urine Nitrite Neg (Negative) 02/17/20 Unknown Urine Bilirubin Neg (Negative) 02/17/20 Unknown Urine Urobilinogen < 2.0 mg/dL (<2.0) 02/17/20 Unknown Ur Leukocyte Esterase Mod (Negative) 02/17/20 Unknown Urine WBC (Auto) 17.0 /HPF (0.0-6.0) H 02/17/20 Unknown Urine RBC (Auto) 17.0 /HPF (0.0-6.0) 02/17/20 Unknown U Epithel Cells (Auto) 4.0 /HPF (0-13.0) 02/17/20 Unknown Urine Bacteria (Auto) 1+ /HPF (Negative) 02/17/20 Unknown Urine Yeast (Budding) 2+ /HPF 02/17/20 Unknown Microbiology: Microbiology 02/17/20 16:28 Peripheral/Venous Blood Culture - Preliminary Culture in Progress 02/17/20 16:28 Peripheral/Venous Blood Culture - Preliminary Culture in Progress Yin/IV: Voiding Method Indwelling Catheter IV Catheter Type [Right INT / Saline Lock Antecubital] Active Medications - Current Medications Current Medications: Generic Name Dose Route Start Last Admin Trade Name Freq PRN Reason Stop Dose Admin Fentanyl 50 mcg 02/18/20 01:08 02/18/20 02:30 Sublimaze IV 50 mcg Q10MIN PRN Administration ANALGESIA Hydrophilic Ointment 1 applic 02/17/20 15:12 Vaseline Lip Therapy TP Q2HR PRN Dry Lips Norepinephrine 4 mg in 250 mls @ 7.5 mls/hr 02/17/20 20:00 02/18/20 03:47 Levophed Drip 4 Mg/Ns 250 Ml IV Infused TITR LOS Titration Protocol 2 MCG/MIN Epinephrine 8 mg/ Sodium 250 mls @ 3.75 mls/hr 02/17/20 22:05 02/18/20 03:41 Chloride IV 02/20/20 16:44 3 mcg/min TITR ONE 5.625 mls/hr Titration Protocol 2 MCG/MIN Heparin Sodium/Sodium Chloride 25,000 unit in 500 mls @ 20 mls/hr 02/17/20 23:00 02/17/20 23:10 Heparin/ 0.45% Nacl-25,000 Unit/500 Ml IV 1,000 units/hr TITRATE LOS 20 mls/hr Administration Protocol 1,000 UNITS/HR Fentanyl Citrate 2,000 mcg in 100 mls @ 4.309 mls/hr 02/18/20 02:00 Fentanyl Drip Premix IV TITR LOS Protocol 1 MCG/KG/HR Ceftriaxone Sodium 2 gm in 100 mls @ 200 mls/hr 02/18/20 10:00 Rocephin/Ns 2 Gm/100 Ml IV Q24HR LOS Protocol Azithromycin 500 mg/ Sodium 250 mls @ 250 mls/hr 02/18/20 10:00 Chloride IV Q24HR LOS Protocol Sodium Chloride 1,000 mls @ 75 mls/hr 02/18/20 02:45 Nacl 0.9% 1000 Ml IV DIRECT LOS Magnesium Hydroxide 30 ml 02/18/20 02:31 Milk Of Magnesia PO Q4H PRN Constipation Multi-Ingred Cream/Lotion/Oil/Oint 1 applic 02/17/20 15:12 Artificial Tears Ophth Oint OU Q4HR PRN Dry Eye(s) Sodium Chloride 10 ml 02/18/20 10:00 Sodium Chloride Flush Syringe 10 Ml IV BID LOS Sodium Chloride 10 ml 02/18/20 02:31 Sodium Chloride Flush Syringe 10 Ml IV PRN PRN LINE FLUSH
[2020-02-18] MEDS: NORepinephrine/NS 4 MG-250 ML 4 MG/250 ML BAG IV SCH ×5 (08:45→22:06)
--- NOTE | 2020-02-18 08:51 | Consultation ---
History of Present Illness Consult date: 02/18/20 Requesting physician: SNEHAL PAINTING III Consult reason: other (NSTEMI) History of present illness: Pt is a74 y.o. male, previously unknown to our practice, who presented via EMS from SN[facility] in the setting of decreased O2 sat and lethargy. Pt was noted to have O2 sat in the 60s on room air and was placed on bag valve ventilation. Upon arrival, pt was found to be unresponsive and was subsequently intubated. Of note, pt had recent COVID-19 infection. No documented cardiac complaints. Cardiology has been consulted for elevated troponin - 0.748 -> 1.030. No acute ischemic changes on ECG. CXR reveals bibasilar opacities, increasing R mid and lower zone infiltrates. No previous cardiac workup available for review. Past History Past Medical History: hypertension, hyperlipidemia, stroke (w/left hemiparesis), other (PVD, dementia) Medications and Allergies Allergies Allergy/AdvReac Type Severity Reaction Status Date / Time No Known Allergies Allergy Unverified 05/01/15 23:41 Home Medications Medication Instructions Recorded Confirmed Last Taken Type Acetaminophen [Acetaminophen TAB] 650 mg PO Q8H PRN 05/02/15 02/18/20 Unknown History Albuterol Sulfate [Albuterol 0.63% 0.63 mg IH Q6H PRN 05/02/15 02/18/20 Unknown History NEBS] Aspirin [Aspirin BABY CHEW TAB] 81 mg PO DAILY 05/02/15 02/18/20 05/01/15 History AtorvaSTATin [Lipitor] 20 mg PO QHS 05/02/15 02/18/20 05/01/15 History Docusate Sodium [Colace CAP] 100 mg PO BID 05/02/15 02/18/20 05/02/15 History Insulin Lispro [HumaLOG VIAL] See Protocol SUB-Q ACHS 05/02/15 02/18/20 05/01/15 History amLODIPine 5 mg PO DAILY 05/02/15 02/18/20 05/01/15 History Active Meds: Active Medications Aspirin (Baby Aspirin) 81 mg PO DAILY LOS Atorvastatin Calcium (Lipitor) 20 mg PO QHS LOS Docusate Sodium (Colace) 100 mg PO BID LOS Famotidine (Pepcid) 20 mg IV DAILY LOS Fentanyl (Sublimaze) 50 mcg IV Q10MIN PRN PRN Reason: ANALGESIA Last Admin: 02/18/20 02:30 Dose: 50 mcg Documented by: Hydrophilic Ointment (Vaseline Lip Therapy) 1 applic TP Q2HR PRN PRN Reason: Dry Lips Norepinephrine (Levophed Drip 4 Mg/Ns 250 Ml) 4 mg in 250 mls @ 7.5 mls/hr IV TITR LOS; Protocol Last Admin: 02/18/20 08:45 Dose: 30 mcg/min, 112.5 mls/hr Documented by: Epinephrine 8 mg/ Sodium (Chloride) 250 mls @ 3.75 mls/hr IV TITR ONE; Protocol Stop: 02/20/20 16:44 Last Titration: 02/18/20 08:30 Dose: 5 mcg/min, 9.375 mls/hr Documented by: Heparin Sodium/Sodium Chloride (Heparin/ 0.45% Nacl-25,000 Unit/500 Ml) 25,000 unit in 500 mls @ 20 mls/hr IV TITRATE LOS; Protocol Last Admin: 02/17/20 23:10 Dose: 1,000 units/hr, 20 mls/hr Documented by: Fentanyl Citrate (Fentanyl Drip Premix) 2,000 mcg in 100 mls @ 4.309 mls/hr IV TITR LOS; Protocol Sodium Chloride (Nacl 0.9% 1000 Ml) 1,000 mls @ 75 mls/hr IV DIRECT LOS Cefepime HCl (Cefepime/Ns 2 Gm/100 Ml) 2 gm in 100 mls @ 200 mls/hr IV Q24HR LOS; Protocol Vancomycin HCl 1,750 mg/ (Sodium Chloride) 535 mls @ 333.333 mls/hr IV ONCE ONE Stop: 02/18/20 11:36 Magnesium Hydroxide (Milk Of Magnesia) 30 ml PO Q4H PRN PRN Reason: Constipation Multi-Ingred Cream/Lotion/Oil/Oint (Artificial Tears Ophth Oint) 1 applic OU Q4 HR PRN PRN Reason: Dry Eye(s) Sodium Chloride (Sodium Chloride Flush Syringe 10 Ml) 10 ml IV BID LOS Sodium Chloride (Sodium Chloride Flush Syringe 10 Ml) 10 ml IV PRN PRN PRN Reason: LINE FLUSH Review of Systems ROS unobtainable: due to endotracheal tube Physical Examination Last Vital Signs Temp 99.4 F 08/29/20 19:54 Pulse 102 H 02/18/20 19:13 Resp 21 02/18/20 16:00 BP 110/46 02/18/20 19:13 Pulse Ox 100 02/18/20 19:13 General appearance: no acute distress HEENT: Positive: Normocephaly Neck: Negative: JVD/HJR Cardiac: Positive: Reg Rate and Rhythm, S1/S2 Lungs: Positive: Decreased Breath Sounds Abdomen: Positive: Soft, Active Bowel Sounds Skin: Negative: Rash Musculoskeletal: No Fluid Collection Extremities: Present: upper extr. pulses, lower extr. pulses. Absent: edema Results 02/17/20 16:28 02/18/20 17:40 Cardiac Enzymes 02/17/20 02/17/20 Range/Units 16:28 16:28 AST 65 H (5-40) units/L Lactate Dehydrogenase 381 H (91-180) units/L Coagulation 02/17/20 Range/Units 16:28 PT 15.3 H (12.2-14.9) Sec. INR 1.19 H (0.87-1.13) APTT 26.8 (24.2-36.6) Sec. CBC 02/17/20 Range/Units 16:28 WBC 23.5 H (4.5-11.0) K/mm3 RBC 3.07 L (3.65-5.03) M/mm3 Hgb 9.1 L (11.8-15.2) gm/dl Hct 28.4 L (35.5-45.6) % Plt Count 178 (140-440) K/mm3 Comprehensive Metabolic Panel 02/17/20 Range/Units 16:28 Sodium 136 L (137-145) mmol/L Potassium 5.4 H (3.6-5.0) mmol/L Chloride 102.5 (98-107) mmol/L Carbon Dioxide 15 L (22-30) mmol/L BUN 91 H (9-20) mg/dL Creatinine 3.7 H D (0.8-1.3) mg/dL Glucose 120 H (75-100) mg/dL Calcium 7.9 L (8.4-10.2) mg/dL AST 65 H (5-40) units/L ALT 81 H (7-56) units/L Alkaline Phosphatase 101 (35-129) units/L Total Protein 5.4 L (6.3-8.2) g/dL Albumin 2.3 L (3.9-5) g/dL - Imaging and Cardiology EKG: report reviewed, image reviewed - EKG Interpretation EKG: no acute changes EKG interpretations - Telemetry EKG Rhythm: Sinus Tachycardia - EKG Sinus rhythms and dysrhythmias: sinus rhythm Assessment and Plan Suspect NSTEMI in the setting of septic shock/acute resp fail/AMMY. Continue heparin drip. Will obtain echo and plan for ischemic eval when clinically stable. Wean pressors as tolerated. Prognosis guarded. Pt seen in conjunction with Dr. SAMANTHA Garay, who agrees with the assessment and plan of care. - Patient Problems (1) Acute respiratory failure with hypoxia Current Visit: No Status: Acute (2) Pneumonia involving right lung Current Visit: Yes Status: Acute (3) Septic shock Current Visit: Yes Status: Acute (4) Lactic acidosis Current Visit: Yes Status: Acute (5) Acute kidney injury superimposed on CKD Current Visit: Yes Status: Acute (6) Anemia Current Visit: Yes Status: Acute (7) NSTEMI (non-ST elevated myocardial infarction) Current Visit: Yes Status: Acute (8) Elevated d-dimer Current Visit: Yes Status: Acute (9) HTN (hypertension) Current Visit: No Status: Chronic Qualifiers: Hypertension type: essential hypertension Qualified Code(s): I10 - E ssential (primary) hypertension (10) HLD (hyperlipidemia) Current Visit: Yes Status: Chronic Qualifiers: Hyperlipidemia type: mixed hyperlipidemia Qualified Code(s): E78.2 - Mixed hyperlipidemia (11) DM2 (diabetes mellitus, type 2) Current Visit: Yes Status: Chronic (12) PVD (peripheral vascular disease) Current Visit: Yes Status: Chronic (13) H/O: CVA (cerebrovascular accident) Current Visit: Yes Status: Chronic
[2020-02-18] MEDS ORDERED: VANCOMYCIN PHARMACY TO DOSE IV SCH (09:00)
[2020-02-18] MEDS ORDERED: AZITHROMYCIN 500 MG in SODIUM CHLORIDE 0.9% 250ML 250 ML IV SCH (10:00)
[2020-02-18] MEDS ORDERED: VANCOMYCIN 1,750 MG in SODIUM CHLORIDE 0.9% 500 ML 500 ML IV ONE (10:00)
[2020-02-18] MEDS ORDERED: VANCOMYCIN/NS 1 GM/250 ML 1 GM/250 ML BAG IV SCH (10:00)
[2020-02-18] MEDS ORDERED: cefTRIAXone/NS 2 GM/100 ML 2 GM/100 ML BAG IV SCH (10:00)
[2020-02-18] MEDS: CEFEPIME/NS 2 GM/100 ML 2 GM/100 ML BAG IV SCH (10:12)
[2020-02-18] MEDS: FAMOTIDINE 20 MG/2 ML INJ IV SCH (10:16)
[2020-02-18] MEDS: ASPIRIN 81 MG TAB CHEW PO SCH (10:20)
[2020-02-18] MEDS: DOCUSATE SODIUM 100 MG CAP PO SCH ×2 (10:56→22:00)
[2020-02-18 10:58] LABS: Chol/HDL Ratio 3.5 %
--- NOTE | 2020-02-18 12:11 | Consultation ---
History of Present Illness Consult date: 02/18/20 Requesting physician: NILAY MIR Reason for consult: hypoxemia, other (worsening renal failure, sepsis with shock) History of present illness: 74 y/o male, known to me as I saw him on his last hospital stay here, intubated and septic thought secondary to pneumonia. Subsequently developed renal failure that ultimately required HD. I am not sure how much longer this was continued as he was weaned off oxygen prior to discharge and we signed off. He was readmitted 3 days after being discharged. Severe metabolic acidosis, worsening renal failure, hypotension and altered mental state. Was also hypoxic so intub ated in the Ed. This am still on pressors, which include epi and levo, not sure why other pressors were not tried before epi. Remainder is negative. He is unable to given any history as he is intubated, not on sedation. Past History Past Medical History: hypertension, hyperlipidemia, renal failure, stroke (With left Hemiparesis), other (PVD,Dementia) Past Surgical History: Other (vascath placement at last hospital stay) Social history: other (Unknown) Family history: other (Unknown) Medications and Allergies Allergies Allergy/AdvReac Type Severity Reaction Status Date / Time No Known Allergies Allergy Unverified 05/01/15 23:41 Home Medications Medication Instructions Recorded Confirmed Last Taken Type Acetaminophen [Acetaminophen TAB] 650 mg PO Q8H PRN 05/02/15 02/18/20 Unknown History Albuterol Sulfate [Albuterol 0.63% 0.63 mg IH Q6H PRN 05/02/15 02/18/20 Unknown History NEBS] Aspirin [Aspirin BABY CHEW TAB] 81 mg PO DAILY 05/02/15 02/18/20 05/01/15 History AtorvaSTATin [Lipitor] 20 mg PO QHS 05/02/15 02/18/20 05/01/15 History Docusate Sodium [Colace CAP] 100 mg PO BID 05/02/15 02/18/20 05/02/15 History Insulin Lispro [HumaLOG VIAL] See Protocol SUB-Q ACHS 05/02/15 02/18/20 05/01/15 History amLODIPine 5 mg PO DAILY 05/02/15 02/18/20 05/01/15 History Active Meds: Active Medications Aspirin (Baby Aspirin) 81 mg PO DAILY LOS Last Admin: 02/18/20 10:20 Dose: 81 mg Documented by: Atorvastatin Calcium (Lipitor) 20 mg PO QHS LOS Docusate Sodium (Colace) 100 mg PO BID LOS Last Admin: 02/18/20 10:56 Dose: Not Given Documented by: Famotidine (Pepcid) 20 mg IV DAILY LOS Last Admin: 02/18/20 10:16 Dose: 20 mg Documented by: Fentanyl (Sublimaze) 50 mcg IV Q10MIN PRN PRN Reason: ANALGESIA Last Admin: 02/18/20 02:30 Dose: 50 mcg Documented by: Hydrophilic Ointment (Vaseline Lip Therapy) 1 applic TP Q2HR PRN PRN Reason: Dry Lips Norepinephrine (Levophed Drip 4 Mg/Ns 250 Ml) 4 mg in 250 mls @ 7.5 mls/hr IV TITR LOS; Protocol Last Admin: 02/18/20 11:00 Dose: 28 mcg/min, 105 mls/hr Documented by: Epinephrine 8 mg/ Sodium (Chloride) 250 mls @ 3.75 mls/hr IV TITR ONE; Protocol Stop: 02/20/20 16:44 Last Titration: 02/18/20 10:17 Dose: 4 mcg/min, 7.5 mls/hr Documented by: Heparin Sodium/Sodium Chloride (Heparin/ 0.45% Nacl-25,000 Unit/500 Ml) 25,000 unit in 500 mls @ 20 mls/hr IV TITRATE LOS; Protocol Last Titration: 02/18/20 11:05 Dose: 900 units/hr, 18 mls/hr Documented by: Fentanyl Citrate (Fentanyl Drip Premix) 2,000 mcg in 100 mls @ 4.309 mls/hr IV TITR LOS; Protocol Sodium Chloride (Nacl 0.9% 1000 Ml) 1,000 mls @ 75 mls/hr IV DIRECT LOS Cefepime HCl (Cefepime/Ns 2 Gm/100 Ml) 2 gm in 100 mls @ 200 mls/hr IV Q24HR LOS; Protocol Last Admin: 02/18/20 10:12 Dose: 200 mls/hr Documented by: Vasopressin 20 unit/ Sodium (Chloride) 101 mls @ 9.09 mls/hr IV TITR LOS; Prot ocol Magnesium Hydroxide (Milk Of Magnesia) 30 ml PO Q4H PRN PRN Reason: Constipation Multi-Ingred Cream/Lotion/Oil/Oint (Artificial Tears Ophth Oint) 1 applic OU Q4HR PRN PRN Reason: Dry Eye(s) Sodium Chloride (Sodium Chloride Flush Syringe 10 Ml) 10 ml IV BID LOS Last Admin: 02/18/20 10:16 Dose: 10 ml Documented by: Sodium Chloride (Sodium Chloride Flush Syringe 10 Ml) 10 ml IV PRN PRN PRN Reason: LINE FLUSH Review of Systems ROS unobtainable: due to endotracheal tube, due to mental status Physical Examination Vital signs: Vital Signs Pulse Resp BP Pulse Ox 90 12 64/42 97 02/17/20 15:00 02/17/20 15:00 02/17/20 15:00 02/17/20 15:00 General appearance: appears uncomfortable, other (moving but not purposeful) ENT: other (orally intubated critically ill on vent) Neck: supple Effort: mildly labored Ascultation: Bilateral: clear, diminished breath sounds Percussion: Bilateral: not dull Cardiovascular: other (sinus tachycardia) unable to assess Results - Laboratory Findings CBC and BMP: 02/17/20 16:28 02/17/20 16:28 ABG WBC 23.5 K/mm3 (4.5-11.0) H 02/17/20 16:28 RBC 3.07 M/mm3 (3.65-5.03) L 02/17/20 16:28 Hgb 9.1 gm/dl (11.8-15.2) L 02/17/20 16:28 Hct 28.4 % (35.5-45.6) L 02/17/20 16:28 MCV 93 fl (84-94) 02/17/20 16:28 MCH 29 pg (28-32) 02/17/20 16:28 MCHC 32 % (32-34) 02/17/20 16:28 RDW 16.8 % (13.2-15.2) H 02/17/20 16:28 Plt Count 178 K/mm3 (140-440) 02/17/20 16:28 Add Manual Diff Complete 02/17/20 16:28 Total Counted 100 02/17/20 16:28 Seg Neuts % (Manual) 84.0 % (40.0-70.0) H 02/17/20 16:28 Band Neutrophils % 0 % 02/17/20 16:28 Lymphocytes % (Manual) 8.0 % (13.4-35.0) L 02/17/20 16:28 Reactive Lymphs % (Man) 0 % 02/17/20 16:28 Monocytes % (Manual) 8.0 % (0.0-7.3) H 02/17/20 16:28 Eosinophils % (Manual) 0 % (0.0-4.3) 02/17/20 16:28 Basophils % (Manual) 0 % (0.0-1.8) 02/17/20 16:28 Metamyelocytes % 0 % 02/17/20 16:28 Myelocytes % 0 % 02/17/20 16:28 Promyelocytes % 0 % 02/17/20 16:28 Blast Cells % 0 % 02/17/20 16:28 Nucleated RBC % Not Reportable 02/17/20 16:28 Seg Neutrophils # Man 19.7 K/mm3 (1.8-7.7) H 02/17/20 16:28 Band Neutrophils # 0.0 K/mm3 02/17/20 16:28 Lymphocytes # (Manual) 1.9 K/mm3 (1.2-5.4) 02/17/20 16:28 Abs React Lymphs (Man) 0.0 K/mm3 02/17/20 16:28 Monocytes # (Manual) 1.9 K/mm3 (0.0-0.8) H 02/17/20 16:28 Eosinophils # (Manual) 0.0 K/mm3 (0.0-0.4) 02/17/20 16:28 Basophils # (Manual) 0.0 K/mm3 (0.0-0.1) 02/17/20 16:28 Metamyelocytes # 0.0 K/mm3 02/17/20 16:28 Myelocytes # 0.0 K/mm3 02/17/20 16:28 Promyelocytes # 0.0 K/mm3 02/17/20 16:28 Blast Cells # 0.0 K/mm3 02/17/20 16:28 WBC Morphology Not Reportable 02/17/20 16:28 Hypersegmented Neuts Not Reportable 02/17/20 16:28 Hyposegmented Neuts Not Reportable 02/17/20 16:28 Hypogranular Neuts Not Reportable 02/17/20 16:28 Smudge Cells Not Reportable 02/17/20 16:28 Toxic Granulation Not Reportable 02/17/20 16:28 Toxic Vacuolation Not Reportable 02/17/20 16:28 Dohle Bodies Not Reportable 02/17/20 16:28 Pelger-Huet Anomaly Not Reportable 02/17/20 16:28 Krys Rods Not Reportable 02/17/20 16:28 Platelet Estimate Not Reportable 02/17/20 16:28 Clumped Platelets Not Reportable 02/17/20 16:28 Plt Clumps, EDTA Not Reportable 02/17/20 16:28 Large Platelets Not Reportable 02/17/20 16:28 Giant Platelets Not Reportable 02/17/20 16:28 Platelet Satelliting Not Reportable 02/17/20 16:28 Plt Morphology Comment Not Reportable 02/17/20 16:28 RBC Morphology Normal 02/17/20 16:28 Dimorphic RBCs Not Reportable 02/17/20 16:28 Polychromasia Not Reportable 02/17/20 16:28 Hypochromasia Not Reportable 02/17/20 16:28 Poikilocytosis Not Reportable 02/17/20 16:28 Anisocytosis Not Reportable 02/17/20 16:28 Microcytosis Not Reportable 02/17/20 16:28 Macrocytosis Not Reportable 02/17/20 16:28 Spherocytes Not Reportable 02/17/20 16:28 Pappenheimer Bodies Not Reportable 02/17/20 16:28 Sickle Cells Not Reportable 02/17/20 16:28 Target Cells Not Reportable 02/17/20 16:28 Tear Drop Cells Not Reportable 02/17/20 16:28 Ovalocytes Not Reportable 02/17/20 16:28 Helmet Cells Not Reportable 02/17/20 16:28 [place] Bodies Not Reportable 02/17/20 16:28 [place] Rings Not Reportable 02/17/20 16:28 [place] Cells Not Reportable 02/17/20 16:28 Bite Cells Not Reportable 02/17/20 16:28 Crenated Cell Not Reportable 02/17/20 16:28 Elliptocytes Not Reportable 02/17/20 16:28 Acanthocytes (Spur) Not Reportable 02/17/20 16:28 Rouleaux Not Reportable 02/17/20 16:28 Hemoglobin C Crystals Not Reportable 02/17/20 16:28 Schistocytes Not Reportable 02/17/20 16:28 Malaria parasites Not Reportable 02/17/20 16:28 Keron Bodies Not Reportable 02/17/20 16:28 Hem Pathologist Commnt No 02/17/20 16:28 PT 15.3 Sec. (12.2-14.9) H 02/17/20 16:28 INR 1.19 (0.87-1.13) H 02/17/20 16:28 APTT 26.8 Sec. (24.2-36.6) 02/17/20 16:28 D-Dimer > 34745 ng/mlDDU (0-234) H 02/17/20 16:28 Heparin Anti-Xa Level 0.60 U.I./ml (0.3-0.7) 02/18/20 10:10 ABG pH 7.217 pH Units (7.350-7.450) L 02/18/20 05:20 ABG pCO2 26.4 mm Hg 02/18/20 05:20 ABG pO2 165.7 mm Hg (80.0-90.0) H 02/18/20 05:20 ABG HCO3 10.5 mmol/L (20.0-26.0) L 02/18/20 05:20 ABG O2 Saturation 98.9 % (95.0-99.0) 02/18/20 05:20 ABG O2 Content 14.4 (0.0-44) 02/18/20 05:20 ABG Base Excess -15.7 mmol/L (-2.0-3.0) L 02/18/20 05:20 ABG Hemoglobin 10.3 gm/dl (14.0-18.0) L 02/18/20 05:20 ABG Carboxyhemoglobin 1.1 % (0.0-5.0) 02/18/20 05:20 ABG Methemoglobin 0.6 % (0.0-1.5) 02/18/20 05:20 Oxyhemoglobin 97.2 % (95.0-99.0) 02/18/20 05:20 FiO2 50 % 02/18/20 05:20 Sodium 136 mmol/L (137-145) L 02/17/20 16:28 Potassium 5.4 mmol/L (3.6-5.0) H 02/17/20 16:28 Chloride 102.5 mmol/L (98-107) 02/17/20 16:28 Carbon Dioxide 15 mmol/L (22-30) L 02/17/20 16:28 Anion Gap 24 mmol/L 02/17/20 16:28 BUN 91 mg/dL (9-20) H 02/17/20 16:28 Creatinine 3.7 mg/dL (0.8-1.3) H D 02/17/20 16:28 Estimated GFR 19 ml/min 02/17/20 16:28 BUN/Creatinine Ratio 25 % 02/17/20 16:28 Glucose 120 mg/dL (75-100) H 02/17/20 16:28 Lactic Acid 1.90 mmol/L (0.7-2.0) 02/17/20 22:56 Calcium 7.9 mg/dL (8.4-10.2) L 02/17/20 16:28 Ferritin 1191.0 ng/mL (30.0-300.0) H 02/17/20 16:28 Total Bilirubin 0.50 mg/dL (0.1-1.2) 02/17/20 16:28 AST 65 units/L (5-40) H 02/17/20 16:28 ALT 81 units/L (7-56) H 02/17/20 16:28 Alkaline Phosphatase 101 units/L (35-129) 02/17/20 16:28 Lactate Dehydrogenase 381 units/L (91-180) H 02/17/20 16:28 Total Creatine Kinase 5660 units/L (55-170) H 02/18/20 10:10 CK-MB (CK-2) 78.0 ng/mL (0.0-4.0) H 02/18/20 10:10 CK-MB (CK-2) Rel Index 1.3 (0-4) 02/18/20 10:10 Troponin T 1.030 ng/mL (0.00-0.029) H* D 02/18/20 10:10 C-Reactive Protein 18.20 mg/dL (0.00-1.30) H 08/28/20 16:28 NT-Pro-B Natriuret Pep 1980 pg/mL (0-900) H 02/17/20 16:28 Total Protein 5.4 g/dL (6.3-8.2) L 02/17/20 16:28 Albumin 2.3 g/dL (3.9-5) L 02/17/20 16:28 Albumin/Globulin Ratio 0.7 % 02/17/20 16:28 Triglycerides 164 mg/dL (2-149) H 02/18/20 10:10 Cholesterol 133 mg/dL (50-199) 02/18/20 10:10 LDL Cholesterol Direct 71 mg/dL (50-130) 02/18/20 10:10 HDL Cholesterol 38 mg/dL (40-59) L 02/18/20 10:10 Cholesterol/HDL Ratio 3.50 % 02/18/20 10:10 Procalcitonin 6.74 ng/mL (<0.15) 02/17/20 16:28 TSH 3.490 mlU/mL (0.270-4.200) 02/17/20 16:28 Urine Color Yellow (Yellow) 02/17/20 Unknown Urine Turbidity Slightly-cloudy (Clear) 02/17/20 Unknown Urine pH 5.0 (5.0-7.0) 02/17/20 Unknown Ur Specific [place] 1.010 (1.003-1.030) 02/17/20 Unknown Urine Protein 30 mg/dl mg/dL (Negative) 02/17/20 Unknown Urine Glucose (UA) Neg mg/dL (Negative) 02/17/20 Unknown Urine Ketones Neg mg/dL (Negative) 02/17/20 Unknown Urine Blood Mod (Negative) 02/17/20 Unknown Urine Nitrite Neg (Negative) 02/17/20 Unknown Urine Bilirubin Neg (Negative) 02/17/20 Unknown Urine Urobilinogen < 2.0 mg/dL (<2.0) 02/17/20 Unknown Ur Leukocyte Esterase Mod (Negative) 02/17/20 Unknown Urine WBC (Auto) 17.0 /HPF (0.0-6.0) H 02/17/20 Unknown Urine RBC (Auto) 17.0 /HPF (0.0-6.0) 02/17/20 Unknown U Epithel Cells (Auto) 4.0 /HPF (0-13.0) 02/17/20 Unknown Urine Bacteria (Auto) 1+ /HPF (Negative) 02/17/20 Unknown Urine Yeast (Budding) 2+ /HPF 02/17/20 Unknown PT/INR, D-dimer PT 15.3 Sec. (12.2-14.9) H 02/17/20 16:28 INR 1.19 (0.87-1.13) H 02/17/20 16:28 D-Dimer > 35788 ng/mlDDU (0-234) H 02/17/20 16:28 Abnormal lab findings: Abnormal Labs 02/17/20 02/17/20 02/17/20 16:28 16:28 16:28 WBC 23.5 H RBC 3.07 L Hgb 9.1 L Hct 28.4 L RDW 16.8 H Seg Neuts % (Manual) 84.0 H Lymphocytes % (Manual) 8.0 L Monocytes % (Manual) 8.0 H Seg Neutrophils # Man 19.7 H Monocytes # (Manual) 1.9 H PT 15.3 H INR 1.19 H D-Dimer ABG pH ABG pO2 ABG HCO3 ABG O2 Saturation ABG Base Excess ABG Hemoglobin Sodium 136 L Potassium 5.4 H Carbon Dioxide 15 L BUN 91 H Creatinine 3.7 H D Glucose 120 H Lactic Acid Calcium 7.9 L Ferritin AST 65 H ALT 81 H Lactate Dehydrogenase Total Creatine Kinase CK-MB (CK-2) Troponin T C-Reactive Protein NT-Pro-B Natriuret Pep Total Protein 5.4 L Albumin 2.3 L Triglycerides HDL Cholesterol Urine WBC (Auto) 02/17/20 02/17/20 02/17/20 16: 16: 16:28 WBC RBC Hgb Hct RDW Seg Neuts % (Manual) Lymphocytes % (Manual) Monocytes % (Manual) Seg Neutrophils # Man Monocytes # (Manual) PT INR D-Dimer > 17066 H ABG pH ABG pO2 ABG HCO3 ABG O2 Saturation ABG Base Excess ABG Hemoglobin Sodium Potassium Carbon Dioxide BUN Creatinine Glucose Lactic Acid 2.70 H* Calcium Ferritin AST ALT Lactate Dehydrogenase Total Creatine Kinase CK-MB (CK-2) Troponin T 0.748 H* C-Reactive Protein NT-Pro-B Natriuret Pep 1980 H Total Protein Albumin Triglycerides HDL Cholesterol Urine WBC (Auto) 02/17/20 02/17/20 02/17/20 16:28 16:28 18:35 WBC RBC Hgb Hct RDW Seg Neuts % (Manual) Lymphocytes % (Manual) Monocytes % (Manual) Seg Neutrophils # Man Monocytes # (Manual) PT INR D-Dimer ABG pH 7.303 L ABG pO2 327.3 H ABG HCO3 12.5 L ABG O2 Saturation 99.5 H ABG Base Excess -12.3 L ABG Hemoglobin 11.2 L Sodium Potassium Carbon Dioxide BUN Creatinine Glucose Lactic Acid Calcium Ferritin 1191.0 H AST ALT Lactate Dehydrogenase 381 H Total Creatine Kinase CK-MB (CK-2) Troponin T C-Reactive Protein 18.20 H NT-Pro-B Natriuret Pep Total Protein Albumin Triglycerides HDL Cholesterol Urine WBC (Auto) 02/17/20 02/18/20 02/18/20 Unknown 05:20 10:10 WBC RBC Hgb Hct RDW Seg Neuts % (Manual) Lymphocytes % (Manual) Monocytes % (Manual) Seg Neutrophils # Man Monocytes # (Manual) PT INR D-Dimer ABG pH 7.217 L ABG pO2 165.7 H ABG HCO3 10.5 L ABG O2 Saturation ABG Base Excess -15.7 L ABG Hemoglobin 10.3 L Sodium Potassium Carbon Dioxide BUN Creatinine Glucose Lactic Acid Calcium Ferritin AST ALT Lactate Dehydrogenase Total Creatine Kinase 5660 H CK-MB (CK-2) 78.0 H Troponin T 1.030 H* D C-Reactive Protein NT-Pro-B Natriuret Pep Total Protein Albumin Triglycerides 164 H HDL Cholesterol 38 L Urine WBC (Auto) 17.0 H - Diagnostic Findings Chest x-ray: image reviewed Assessment and Plan 74 y/o male with known dementia, mumbles very few words at baseline if any, blank stares, admitted with altered mental status, respiratory failure, worsening renal failure and sepsis with shock 1. Pulm-Down to 40% FiO2. When you compare CXR from this admit to last, actually improved. Post intubation CXR shows a right lower airspace disease, atelectasis vs true infection. Agree with broad spec abx given his recent hospital stay but pre CXR was good. I suspect atelectasis. Given his pressor requirement, not a candidate for SBT right now. 2. CV-hypotensive, possibly from sepsis. Exact etiology unknown. No labs from this am. Had elevated WC on yesterday. Urine is dirty which is a possible source. Currently on Levo and Epi, not sure why other pressors were not tried before Epi, starting vasopressin and have asked nursing to wean Epi off. Has a positive trop but also in worsening renal failure. Has been started on heparin drip. EKG shows no ST changes 3. Renal- Worsening renal failure. Unsure if HD was being continued or not. Agree with renal consult. needs one. Follows with [facility] as they were seeing the last time he was here. 4. Very guarded prognosis, sister is very reasonable, will attempt to reach out to her. Very similar presentation to last time and patient responded to therapy and was able to be discharged. Hopefully the same can happen. CCT 31 minutes.
[2020-02-18] MEDS: VASOPRESSIN 20 UNIT in SODIUM CHLORIDE 0.9% 100 ML IV SCH ×2 (12:47→22:06)
[2020-02-18] MEDS ORDERED: DEXTROSE 50% IN WATER (25GM) 50 ML SYRINGE IV PRN (12:55)
[2020-02-18] MEDS: INSULIN REGULAR, HUMAN 100 UNIT/ML 3ML VIAL SUB-Q SCH ×2 (13:00→17:38)
--- NOTE | 2020-02-18 13:11 | Consultation ---
History of Present Illness - Reason for Consult Consult date: 02/18/20 acute renal failure - History of Present Illness This is a 74 y/o M with PMH of CVA with left hemiparesis, DM2, HTN, dementia, PVD, and dyslipidemia who presented to [facility] ED from [facility] with decreased oxygen sats and lethargy. Pt had O2 sats in 60s on RA per notes. Pt was subsequently intubated in ED and started on pressors. Pt apparently was hospitalized here a few weeks ago for PNA and was + COVID-19. Cardiology consulted for elevated troponin. Pt did require one HD treatment during prior hospitalization here earlier this month. We were consulted to evaluate this pt who has AMMY. Pt with previous COVID-19 infection, apparently had subsequent negative test, but currently on isolation for concern of COVID-19, pt not examined to limit direct contact/resources of PPE, reviewed medical chart, labs, and notes Past History Past Medical History: hypertension, hyperlipidemia, renal failure, stroke (With left Hemiparesis), other (PVD,Dementia) Past Surgical History: Other (vascath placement at last hospital stay) Social history: other (Unknown) Family history: other (Unknown) Medications and Allergies Allergies Allergy/AdvReac Type Severity Reaction Status Date / Time No Known Allergies Allergy Unverified 05/01/15 23:41 Home Medications Medication Instructions Recorded Confirmed Last Taken Type Acetaminophen [Acetaminophen TAB] 650 mg PO Q8H PRN 05/02/15 02/18/20 Unknown History Albuterol Sulfate [Albuterol 0.63% 0.63 mg IH Q6H PRN 05/02/15 02/18/20 Unknown History NEBS] Aspirin [Aspirin BABY CHEW TAB] 81 mg PO DAILY 05/02/15 02/18/20 05/01/15 History AtorvaSTATin [Lipitor] 20 mg PO QHS 05/02/15 02/18/20 05/01/15 History Docusate Sodium [Colace CAP] 100 mg PO BID 05/02/15 02/18/20 05/02/15 History Insulin Lispro [HumaLOG VIAL] See Protocol SUB-Q ACHS 05/02/15 02/18/20 05/01/15 History amLODIPine 5 mg PO DAILY 05/02/15 02/18/20 05/01/15 History Active Meds: Active Medications Aspirin (Baby Aspirin) 81 mg PO DAILY LOS Last Admin: 02/18/20 10:20 Dose: 81 mg Documented by: Atorvastatin Calcium (Lipitor) 20 mg PO QHS LOS Dextrose (D50w (25gm) Syringe) 50 ml IV Q30MIN PRN; Protocol PRN Reason: Hypoglycemia Docusate Sodium (Colace) 100 mg PO BID LOS Last Admin: 02/18/20 10:56 Dose: Not Given Documented by: Famotidine (Pepcid) 20 mg IV DAILY LOS Last Admin: 02/18/20 10:16 Dose: 20 mg Documented by: Fentanyl (Sublimaze) 50 mcg IV Q10MIN PRN PRN Reason: ANALGESIA Last Admin: 02/18/20 02:30 Dose: 50 mcg Documented by: Hydrophilic Ointment (Vaseline Lip Therapy) 1 applic TP Q2HR PRN PRN Reason: Dry Lips Norepinephrine (Levophed Drip 4 Mg/Ns 250 Ml) 4 mg in 250 mls @ 7.5 mls/hr IV TITR LOS; Protocol Last Titration: 02/18/20 12:30 Dose: 26 mcg/min, 97.5 mls/hr Documented by: Epinephrine 8 mg/ Sodium (Chloride) 250 mls @ 3.75 mls/hr IV TITR ONE; Protocol Stop: 02/20/20 16:44 Last Titration: 02/18/20 12:30 Dose: 0 mcg/min, 0 mls/hr Documented by: Heparin Sodium/Sodium Chloride (Heparin/ 0.45% Nacl-25,000 Unit/500 Ml) 25,000 unit in 500 mls @ 20 mls/hr IV TITRATE LOS; Protocol Last Titration: 02/18/20 11:05 Dose: 900 units/hr, 18 mls/hr Documented by: Fentanyl Citrate (Fentanyl Drip Premix) 2,000 mcg in 100 mls @ 4.309 mls/hr IV TITR LOS; Protocol Sodium Chloride (Nacl 0.9% 1000 Ml) 1,000 mls @ 75 mls/hr IV DIRECT LOS Cefepime HCl (Cefepime/Ns 2 Gm/100 Ml) 2 gm in 100 mls @ 200 mls/hr IV Q24HR LOS; Protocol Last Admin: 02/18/20 10:12 Dose: 200 mls/hr Documented by: Vasopressin 20 unit/ Sodium (Chloride) 101 mls @ 9.09 mls/hr IV TITR LOS; Protocol Last Admin: 02/18/20 12:47 Dose: 0.03 units/min, 9.09 mls/hr Documented by: Sodium Bicarbonate 150 meq/ (Dextrose) 1,150 mls @ 75 mls/hr IV DIRECT LOS Insulin Human Regular (Humulin R) 0 unit SUB-Q Q6HR LOS; Protocol Magnesium Hydroxide (Milk Of Magnesia) 30 ml PO Q4H PRN PRN Reason: Constipation Multi-Ingred Cream/Lotion/Oil/Oint (Artificial Tears Ophth Oint) 1 applic OU Q4HR PRN PRN Reason: Dry Eye(s) Pneumococcal Polyvalent Vaccine (Pneumovax 23) 0.5 ml IM .ONCE ONE Stop: 02/19/20 12:01 Sodium Chloride (Sodium Chloride Flush Syringe 10 Ml) 10 ml IV BID LOS Last Admin: 02/18/20 10:16 Dose: 10 ml Documented by: Sodium Chloride (Sodium Chloride Flush Syringe 10 Ml) 10 ml IV PRN PRN PRN Reason: LINE FLUSH Exam - Vital Signs Vital signs: Vital Signs Pulse Resp BP Pulse Ox 90 12 64/42 97 02/17/20 15:00 02/17/20 15:00 02/17/20 15:00 02/17/20 15:00 - Physical Exam Narrative exam: Pt not examined - on isolation Results - Lab Results 02/17/20 16:28 02/17/20 16:28 Most recent lab results ABG pH 7.217 pH Units (7.350-7.450) L 02/18/20 05:20 ABG pCO2 26.4 mm Hg 02/18/20 05:20 ABG pO2 165.7 mm Hg (80.0-90.0) H 02/18/20 05:20 ABG HCO3 10.5 mmol/L (20.0-26.0) L 02/18/20 05:20 ABG O2 Saturation 98.9 % (95.0-99.0) 02/18/20 05:20 Calcium 7.9 mg/dL (8.4-10.2) L 02/17/20 16:28 Assessment and Plan Acute hypoxic respiratory failure Septic Shock 2/2 PNA Acute Kidney Injury possibly 2/2 ATN from septic shock, on underlying CKD, r/o obstruction PUI COVID-19 Elevated D-Dimers Plan: - Labs pending today - Review of labs in 2015 in [facility] did show SCr level between 1.6-1.8, most recent SCr level in [facility] prior to this admission was 2.2 on 02/14/20 - S/p 0.9% NS Boluses - Currently on D5W +150 mEq sodium bicarbonate infusion at 75 ml/hr - CK level was elevated at 5660 so could have contribution from Rhabdo toward AMMY - On vasopressin and levaphed drips - Trend daily CK levels - Obtain urine lytes/protein, eosinophils - Pt on isolation for concern of COVID-19 - On Abx - Bowling Catheter: Yes (nurse states pt has indwelling bowling cath) - Check Renal US - Renally dose meds - Renal plan d/w Dr Sosa
[2020-02-18] MEDS: SODIUM BICARBONATE 150 MEQ in DEXTROSE 5% IN WATER 1,000 ML IV SCH (13:41)
[2020-02-18 18:45] LABS: Calcium 7.2 mg/dL (8.4-10.2)
[2020-02-18 18:50] LABS: Creatinine,Urine 35.2 mg/dL (0.1-20.0); Microalbumin/Creatinine Ratio 167.6 ug/mg
[2020-02-18] MEDS: fentaNYL DRIP Premix 2,000 MCG/100 ML BAG IV SCH (22:07)
[2020-02-19] MEDS: INSULIN REGULAR, HUMAN 100 UNIT/ML 3ML VIAL SUB-Q SCH ×4 (00:03→21:55)
[2020-02-19] MEDS: NORepinephrine/NS 4 MG-250 ML 4 MG/250 ML BAG IV SCH ×4 (01:37→23:46)
[2020-02-19] MEDS: HEPARIN/ 0.45% NACL DRIP 25,000 UNIT/500 ML BAG IV SCH (01:38)
[2020-02-19 03:28] LABS: INR 1.53 (0.87-1.13)
--- NOTE | 2020-02-19 03:28 | XRay Report ---
CHEST 1 VIEW INDICATION: follow up respiratory failure. COMPARISON: Previous day. FINDINGS: Support devices: NG tube in satisfactory position. Heart: Within normal limits. Lungs/Pleura: Decreased aeration right base. Increasing atelectasis left base. Additional findings: None. IMPRESSION: 1. Decreased aeration right base. 2. Increased atelectasis left base. Signer Name: Ervin Galvez MD Signed: 02/19/2020 3:24 AM Workstation Name: [id number]
[2020-02-19] MEDS: SODIUM BICARBONATE 150 MEQ in DEXTROSE 5% IN WATER 1,000 ML IV SCH ×2 (04:26→20:15)
[2020-02-19 05:10] LABS: Basophils % (Auto) 0.2 % (0.0-1.8); Eosinophils # (Auto) 0.1 K/mm3 (0.0-0.4); Eosinophils % (Auto) 0.4 % (0.0-4.3); Hemoglobin 8.1 gm/dl (11.8-15.2); Lymphocytes # (Auto) 1.8 K/mm3 (1.2-5.4); Lymphocytes % (Auto) 10.5 % (13.4-35.0); Mean Corpuscular HGB Conc 32 % (32-34); Mean Corpuscular Volume 90 fl (84-94); Monocytes # (Auto) 1.2 K/mm3 (0.0-0.8); Monocytes % (Auto) 6.8 % (0.0-7.3); Platelet Count 174 K/mm3 (140-440); Red Blood Count 2.76 M/mm3 (3.65-5.03); Red Cell Distribution Width 16.6 % (13.2-15.2)
[2020-02-19 05:35] LABS: ABG Base Excess -9.5 mmol/L (-2.0-3.0); ABG HCO3 14.9 mmol/L (20.0-26.0); ABG Methemoglobin 0.7 % (0.0-1.5); ABG PCO2 27.3 mm Hg; ABG PH 7.355 pH Units (7.350-7.450); ABG PO2 168.2 mm Hg (80.0-90.0)
[2020-02-19 05:35] LABS: Calcium 7.4 mg/dL (8.4-10.2)
[2020-02-19] MEDS: fentaNYL DRIP Premix 2,000 MCG/100 ML BAG IV SCH (06:24)
[2020-02-19] MEDS: VASOPRESSIN 20 UNIT in SODIUM CHLORIDE 0.9% 100 ML IV SCH ×2 (06:46→17:54)
--- NOTE | 2020-02-19 09:21 | Progress Note ---
Assessment and Plan Assessment and plan: --Acute respiratory failure with hypoxia Current Visit: No Status: Acute Plan to address problem: Requiring intubation and ventilatory support possibly secondary to the underlying pneumonia. Pulmonary critical consulted Nebulizers and supportive care --Septic shock/secondary to sepsis due to pneumonia Current Visit: Yes Status: Acute Plan to address problem: Continue vasopressors, treat underlying pneumonia Admitted to ICU, IV fluids --COVID-19 test negative x2 during last admission However patient has very high levels of inflammatory markers ID consulted, trend the markers Follow hardwick PCR test today Isolation precautions and PPE protocols --Acute on chronic kidney disease Current Visit: Yes Status: Acute Plan to address problem: Secondary to ATN, gentle hydration Avoid nephrotoxins, monitor renal function Consult nephrology if no improvement --Elevated D-dimers More than 10,000, patient is already on heparin drip Unable to get CTA chest as patient is intubated and critically ill Supportive care --Sepsis; secondary to right-sided pneumonia/HCAP Current Visit: Yes Status: Acute Plan to address problem: Continue Vanco and cefepime , follow cultures, supportive care -- DVT prophylaxis Current Visit: No Status: Acute Plan to address problem: Patient currently on anticoagulation. Elderly male patient from [facility] with multiple medical problems Very poor prognosis, patient is full CODE STATUS We will try to contact family and discussed patient's condition Critical care time 32 minutes The high probability of a clinically significant, sudden or life threatening deterioration of the [Respiratory, renal, ID] system(s) required my full and direct attention, intervention and personal management.The aggregate critical care time was [32] minutes. This time is in addition to time spent performing , reported procedures but includes the following: [x] Data Review and interpretation [x] Patient assessment and monitoring of vital signs [x] Documentation [x] Medication orders and management We will closely monitor the patient and adjust the management as needed Plan of care reviewed with the patient's nurse History Interval history: I have seen and examined the patient at the bedside Patient's chart current medications and tests reviewed No new overnight events reported by the nursing Patient remains intubated on ventilatory support COVID-19 test negative Vital signs noted Hospitalist Physical - Constitutional Vitals: Temp Pulse Resp BP Pulse Ox 143 F H 102 H 20 96/56 100 02/19/20 05:43 02/19/20 08:12 02/19/20 06:45 02/19/20 08:12 02/19/20 08:12 General appearance: Present: no acute distress, well-nourished, other (Intubated on vent) - EENT Eyes: Present: PERRL, EOM intact - Neck Neck: Present: supple, normal ROM - Respiratory Respiratory effort: normal Respiratory: bilateral: diminished, rhonchi, negative: rales, wheezing - Cardiovascular Rhythm: regular Heart Sounds: Present: S1 & S2 - Extremities Extremities: no ischemia, No edema - Abdominal General gastrointestinal: soft, non-tender, non-distended, normal bowel sounds - Integumentary Integumentary: Present: clear, warm - Psychiatric Psychiatric: other (Intubated on vent) - Neurologic Neurologic: other (On ventilatory support) HEART Score - HEART Score Troponin: Troponin T 1.030 ng/mL (0.00-0.029) H* D 02/18/20 10:10 Results - Labs CBC & Chem 7: 02/19/20 04:00 02/19/20 09:10 Labs: Laboratory Last Values WBC 17.6 K/mm3 (4.5-11.0) H 02/19/20 04:00 RBC 2.76 M/mm3 (3.65-5.03) L 02/19/20 04:00 Hgb 8.1 gm/dl (11.8-15.2) L 02/19/20 04:00 Hct 25.0 % (35.5-45.6) L 02/19/20 04:00 MCV 90 fl (84-94) 02/19/20 04:00 MCH 29 pg (28-32) 02/19/20 04:00 MCHC 32 % (32-34) 02/19/20 04:00 RDW 16.6 % (13.2-15.2) H 02/19/20 04:00 Plt Count 174 K/mm3 (140-440) 02/19/20 04:00 Lymph % (Auto) 10.5 % (13.4-35.0) L 02/19/20 04:00 Clinch % (Auto) 6.8 % (0.0-7.3) 02/19/20 04:00 Eos % (Auto) 0.4 % (0.0-4.3) 02/19/20 04:00 Baso % (Auto) 0.2 % (0.0-1.8) 02/19/20 04:00 Lymph # 1.8 K/mm3 (1.2-5.4) 02/19/20 04:00 Clinch # 1.2 K/mm3 (0.0-0.8) H 02/19/20 04:00 Eos # 0.1 K/mm3 (0.0-0.4) 02/19/20 04:00 Baso # 0.0 K/mm3 (0.0-0.1) 02/19/20 04:00 Add Manual Diff Complete 02/17/20 16:28 Total Counted 100 02/17/20 16:28 Seg Neutrophils % 82.1 % (40.0-70.0) H 02/19/20 04:00 Seg Neuts % (Manual) 84.0 % (40.0-70.0) H 02/17/20 16:28 Band Neutrophils % 0 % 02/17/20 16:28 Lymphocytes % (Manual) 8.0 % (13.4-35.0) L 02/17/20 16:28 Reactive Lymphs % (Man) 0 % 02/17/20 16:28 Monocytes % (Manual) 8.0 % (0.0-7.3) H 02/17/20 16:28 Eosinophils % (Manual) 0 % (0.0-4.3) 02/17/20 16:28 Basophils % (Manual) 0 % (0.0-1.8) 02/17/20 16:28 Metamyelocytes % 0 % 02/17/20 16:28 Myelocytes % 0 % 02/17/20 16:28 Promyelocytes % 0 % 02/17/20 16:28 Blast Cells % 0 % 02/17/20 16:28 Nucleated RBC % Not Reportable 02/17/20 16:28 Seg Neutrophils # 14.5 K/mm3 (1.8-7.7) H 02/19/20 04:00 Seg Neutrophils # Man 19.7 K/mm3 (1.8-7.7) H 02/17/20 16:28 Band Neutrophils # 0.0 K/mm3 02/17/20 16:28 Lymphocytes # (Manual) 1.9 K/mm3 (1.2-5.4) 02/17/20 16:28 Abs React Lymphs (Man) 0.0 K/mm3 02/17/20 16:28 Monocytes # (Manual) 1.9 K/mm3 (0.0-0.8) H 02/17/20 16:28 Eosinophils # (Manual) 0.0 K/mm3 (0.0-0.4) 02/17/20 16:28 Basophils # (Manual) 0.0 K/mm3 (0.0-0.1) 02/17/20 16:28 Metamyelocytes # 0.0 K/mm3 02/17/20 16:28 Myelocytes # 0.0 K/mm3 02/17/20 16:28 Promyelocytes # 0.0 K/mm3 02/17/20 16:28 Blast Cells # 0.0 K/mm3 02/17/20 16:28 WBC Morphology Not Reportable 02/17/20 16:28 Hypersegmented Neuts Not Reportable 02/17/20 16:28 Hyposegmented Neuts Not Reportable 02/17/20 16:28 Hypogranular Neuts Not Reportable 02/17/20 16:28 Smudge Cells Not Reportable 02/17/20 16:28 Toxic Granulation Not Reportable 02/17/20 16:28 Toxic Vacuolation Not Reportable 02/17/20 16:28 Dohle Bodies Not Reportable 02/17/20 16:28 Pelger-Huet Anomaly Not Reportable 02/17/20 16:28 Krys Rods Not Reportable 02/17/20 16:28 Platelet Estimate Not Reportable 02/17/20 16:28 Clumped Platelets Not Reportable 02/17/20 16:28 Plt Clumps, EDTA Not Reportable 02/17/20 16:28 Large Platelets Not Reportable 02/17/20 16:28 Giant Platelets Not Reportable 02/17/20 16:28 Platelet Satelliting Not Reportable 02/17/20 16:28 Plt Morphology Comment Not Reportable 02/17/20 16:28 RBC Morphology Normal 02/17/20 16:28 Dimorphic RBCs Not Reportable 02/17/20 16:28 Polychromasia Not Reportable 02/17/20 16:28 Hypochromasia Not Reportable 02/17/20 16:28 Poikilocytosis Not Reportable 02/17/20 16:28 Anisocytosis Not Reportable 02/17/20 16:28 Microcytosis Not Reportable 02/17/20 16:28 Macrocytosis Not Reportable 02/17/20 16:28 Spherocytes Not Reportable 02/17/20 16:28 Pappenheimer Bodies Not Reportable 02/17/20 16:28 Sickle Cells Not Reportable 02/17/20 16:28 Target Cells Not Reportable 02/17/20 16:28 Tear Drop Cells Not Reportable 02/17/20 16:28 Ovalocytes Not Reportable 02/17/20 16:28 Helmet Cells Not Reportable 02/17/20 16:28 [place] Bodies Not Reportable 02/17/20 16:28 [place] Rings Not Reportable 02/17/20 16:28 [place] Cells Not Reportable 02/17/20 16:28 Bite Cells Not Reportable 02/17/20 16:28 Crenated Cell Not Reportable 02/17/20 16:28 Elliptocytes Not Reportable 02/17/20 16:28 Acanthocytes (Spur) Not Reportable 02/17/20 16:28 Rouleaux Not Reportable 02/17/20 16:28 Hemoglobin C Crystals Not Reportable 02/17/20 16:28 Schistocytes Not Reportable 02/17/20 16:28 Malaria parasites Not Reportable 02/17/20 16:28 Keron Bodies Not Reportable 02/17/20 16:28 Hem Pathologist Commnt No 02/17/20 16:28 PT 18.6 Sec. (12.2-14.9) H 02/19/20 03:20 INR 1.53 (0.87-1.13) H 02/19/20 03:20 APTT 26.8 Sec. (24.2-36.6) 02/17/20 16:28 D-Dimer > 66124 ng/mlDDU (0-234) H 02/17/20 16:28 Heparin Anti-Xa Level 0.18 U.I./ml (0.3-0.7) L 02/19/20 01:50 ABG pH 7.355 pH Units (7.350-7.450) 02/19/20 05:08 ABG pCO2 27.3 mm Hg 02/19/20 05:08 ABG pO2 168.2 mm Hg (80.0-90.0) H 02/19/20 05:08 ABG HCO3 14.9 mmol/L (20.0-26.0) L 02/19/20 05:08 ABG O2 Saturation 99.0 % (95.0-99.0) 02/19/20 05:08 ABG O2 Content 11.7 (0.0-44) 02/19/20 05:08 ABG Base Excess -9.5 mmol/L (-2.0-3.0) L 02/19/20 05:08 ABG Hemoglobin 8.3 gm/dl (14.0-18.0) L 02/19/20 05:08 ABG Carboxyhemoglobin 1.2 % (0.0-5.0) 02/19/20 05:08 ABG Methemoglobin 0.7 % (0.0-1.5) 02/19/20 05:08 Oxyhemoglobin 97.2 % (95.0-99.0) 02/19/20 05:08 FiO2 40 % 02/19/20 05:08 Sodium 142 mmol/L (137-145) 02/19/20 05:50 Potassium 4.4 mmol/L (3.6-5.0) 02/19/20 05:50 Chloride 111.6 mmol/L (98-107) H 02/19/20 05:50 Carbon Dioxide 14 mmol/L (22-30) L 02/19/20 05:50 Anion Gap 21 mmol/L 02/19/20 05:50 BUN 69 mg/dL (9-20) H 02/19/20 05:50 Creatinine 2.6 mg/dL (0.8-1.3) H 02/19/20 05:50 Estimated GFR 29 ml/min 02/19/20 05:50 BUN/Creatinine Ratio 27 % 02/19/20 05:50 Glucose 151 mg/dL (75-100) H 02/19/20 05:50 POC Glucose 143 (70-105) H 02/19/20 05:38 Lactic Acid 1.90 mmol/L (0.7-2.0) 02/17/20 22:56 Calcium 7.4 mg/dL (8.4-10.2) L 02/19/20 05:50 Ferritin 1191.0 ng/mL (30.0-300.0) H 02/17/20 16:28 Total Bilirubin 0.50 mg/dL (0.1-1.2) 02/17/20 16:28 AST 65 units/L (5-40) H 02/17/20 16:28 ALT 81 units/L (7-56) H 02/17/20 16:28 Alkaline Phosphatase 101 units/L (35-129) 02/17/20 16:28 Lactate Dehydrogenase 381 units/L (91-180) H 02/17/20 16:28 Total Creatine Kinase 3552 units/L (55-170) H 02/19/20 05:50 CK-MB (CK-2) 78.0 ng/mL (0.0-4.0) H 02/18/20 10:10 CK-MB (CK-2) Rel Index 1.3 (0-4) 02/18/20 10:10 Troponin T 1.030 ng/mL (0.00-0.029) H* D 02/18/20 10:10 C-Reactive Protein 18.20 mg/dL (0.00-1.30) H 02/17/20 16:28 NT-Pro-B Natriuret Pep 1980 pg/mL (0-900) H 02/17/20 16:28 Total Protein 5.4 g/dL (6.3-8.2) L 02/17/20 16:28 Albumin 2.3 g/dL (3.9-5) L 02/17/20 16:28 Albumin/Globulin Ratio 0.7 % 02/17/20 16:28 Triglycerides 164 mg/dL (2-149) H 02/18/20 10:10 Cholesterol 133 mg/dL (50-199) 02/18/20 10:10 LDL Cholesterol Direct 71 mg/dL (50-130) 02/18/20 10:10 HDL Cholesterol 38 mg/dL (40-59) L 02/18/20 10:10 Cholesterol/HDL Ratio 3.50 % 02/18/20 10:10 Procalcitonin 6.74 ng/mL (<0.15) 02/17/20 16:28 TSH 3.490 mlU/mL (0.270-4.200) 02/17/20 16:28 Urine Color Yellow (Yellow) 02/17/20 Unknown Urine Turbidity Slightly-cloudy (Clear) 02/17/20 Unknown Urine pH 5.0 (5.0-7.0) 02/17/20 Unknown Ur Specific Portal 1.010 (1.003-1.030) 02/17/20 Unknown Urine Protein 30 mg/dl mg/dL (Negative) 02/17/20 Unknown Urine Glucose (UA) Neg mg/dL (Negative) 02/17/20 Unknown Urine Ketones Neg mg/dL (Negative) 02/17/20 Unknown Urine Blood Mod (Negative) 02/17/20 Unknown Urine Nitrite Neg (Negative) 02/17/20 Unknown Urine Bilirubin Neg (Negative) 02/17/20 Unknown Urine Urobilinogen < 2.0 mg/dL (<2.0) 02/17/20 Unknown Ur Leukocyte Esterase Mod (Negative) 02/17/20 Unknown Urine WBC (Auto) 17.0 /HPF (0.0-6.0) H 02/17/20 Unknown Urine RBC (Auto) 17.0 /HPF (0.0-6.0) 02/17/20 Unknown U Epithel Cells (Auto) 4.0 /HPF (0-13.0) 02/17/20 Unknown Urine Bacteria (Auto) 1+ /HPF (Negative) 02/17/20 Unknown Urine Yeast (Budding) 2+ /HPF 02/17/20 Unknown Urine Eosinophils None seen (None Seen) 02/18/20 17:40 Urine Creatinine 35.2 mg/dL (0.1-20.0) H 02/18/20 17:40 Urine Microalbumin 5.9 mg/dL (0.1-34.0) 02/18/20 17:40 Microalb/Creat Ratio 167.6 ug/mg 02/18/20 17:40 Urine Sodium 104 mmol/L 02/18/20 17:40 Urine Chloride 81.0 mmolL (110-250) L 02/18/20 17:40 Urine Total Protein 38 mg/dL (5-11.8) H 02/18/20 17:40 Coronavirus (PCR) Negative (Negative) 02/18/20 Unknown Microbiology: Microbiology 02/17/20 16:28 Peripheral/Venous Blood Culture - Preliminary NO GROWTH AFTER 24 HOURS 02/17/20 16:28 Peripheral/Venous Blood Culture - Preliminary NO GROWTH AFTER 24 HOURS 02/17/20 18:25 Sputum - Endotracheal Wash Sputum Culture - Preliminary Yin/IV: Voiding Method Indwelling Catheter IV Catheter Type [Right Triple Lumen Cath Femoral] IV Catheter Type [Right INT / Saline Lock Antecubital] Active Medications - Current Medications Current Medications: Generic Name Dose Route Start Last Admin Trade Name Freq PRN Reason Stop Dose Admin Aspirin 81 mg 02/18/20 10:00 02/18/20 10:20 Baby Aspirin PO 81 mg DAILY LOS Administration Atorvastatin Calcium 20 mg 02/18/20 22:00 02/18/20 23:51 Lipitor PO 20 mg QHS LOS Administration Dextrose 50 ml 02/18/20 12:55 D50w (25gm) Syringe IV Q30MIN PRN Hypoglycemia Protocol Docusate Sodium 100 mg 02/18/20 10:00 02/18/20 22:00 Colace PO Not Given BID LOS Famotidine 20 mg 02/18/20 10:00 02/18/20 10:16 Pepcid IV 20 mg DAILY LOS Administration Fentanyl 50 mcg 02/18/20 01:08 02/18/20 02:30 Sublimaze IV 50 mcg Q10MIN PRN Administration ANALGESIA Hydrophilic Ointment 1 applic 02/17/20 15:12 Vaseline Lip Therapy TP Q2HR PRN Dry Lips Norepinephrine 4 mg in 250 mls @ 7.5 mls/hr 02/17/20 20:00 02/19/20 06:49 Levophed Drip 4 Mg/Ns 250 Ml IV 12 mcg/min TITR LOS 45 mls/hr Titration Protocol 2 MCG/MIN Epinephrine 8 mg/ Sodium 250 mls @ 3.75 mls/hr 02/17/20 22:05 02/18/20 12:30 Chloride IV 02/20/20 16:44 0 mcg/min TITR ONE 0 mls/hr Titration Protocol 2 MCG/MIN Heparin Sodium/Sodium Chloride 25,000 unit in 500 mls @ 20 mls/hr 02/17/20 23:00 02/19/20 04:27 Heparin/ 0.45% Nacl-25,000 Unit/500 Ml IV 700 units/hr TITRATE LOS 14 mls/hr Titration Protocol 1,000 UNITS/HR Fentanyl Citrate 2,000 mcg in 100 mls @ 4.309 mls/hr 02/18/20 02:00 02/19/20 06:24 Fentanyl Drip Premix IV 2 mcg/kg/hr TITR LOS 8.618 mls/hr Administration Protocol 1 MCG/KG/HR Sodium Chloride 1,000 mls @ 75 mls/hr 02/18/20 02:45 Nacl 0.9% 1000 Ml IV DIRECT LOS Cefepime HCl 2 gm in 100 mls @ 200 mls/hr 02/18/20 09:00 02/18/20 10:12 Cefepime/Ns 2 Gm/100 Ml IV 200 mls/hr Q24HR LOS Administration Protocol Vasopressin 20 unit/ Sodium 101 mls @ 9.09 mls/hr 02/18/20 10:00 02/19/20 06:46 Chloride IV 0.03 units/min TITR LOS 9.09 mls/hr Administration Protocol 0.03 UNITS/MIN Sodium Bicarbonate 150 meq/ 1,150 mls @ 75 mls/hr 02/18/20 13:00 02/19/20 04:26 Dextrose IV 75 mls/hr DIRECT LOS Administration Insulin Human Regular 0 unit 02/18/20 13:00 02/19/20 00:03 Humulin R SUB-Q Not Given Q6HR LOS Protocol Magnesium Hydroxide 30 ml 02/18/20 02:31 Milk Of Magnesia PO Q4H PRN Constipation Multi-Ingred Cream/Lotion/Oil/Oint 1 applic 02/17/20 15:12 02/19/20 04:25 Artificial Tears Ophth Oint OU 1 applic Q4HR PRN Administration Dry Eye(s) Pneumococcal Polyvalent Vaccine 0.5 ml 02/19/20 12:00 Pneumovax 23 IM 02/19/20 12:01 .ONCE ONE Sodium Chloride 10 ml 02/18/20 10:00 02/18/20 23:52 Sodium Chloride Flush Syringe 10 Ml IV 10 ml BID LOS Administration Sodium Chloride 10 ml 02/18/20 02:31 Sodium Chloride Flush Syringe 10 Ml IV PRN PRN LINE FLUSH Nutrition/Malnutrition Assess - Dietary Evaluation Nutrition/Malnutrition Findings: Nutrition Notes Start: 02/18/20 10:34 Freq: Status: Active Protocol: Document 02/18/20 10:34 LP (Rec: 02/18/20 10:40 LP [id number]) Nutrition Notes Need for Assessment generated from: MD Order Initial or Follow up Assessment Current Diagnosis CKD(stage I-IV),Diabetes, Sepsis,Hypertension,Stroke Other Pertinent Diagnosis Dementia, UTI Current Diet Cardiac Labs/Tests 02/17/20 Na 136 K 5.4 BUN 91 Cr 3.7 BG 120 Pertinent Medications Levophed Height 6 ft Weight 86.1 kg [place] Body Weight (kg) 80.90 BMI 25.7 Weight Status Overweight Subjective/Other Information Consult for diet education and evaluate nutrition intakes. Pt on vent and not appropriate for diet education. Burn Absent Trauma Absent GI Symptoms None Current % PO Negligible Minimum of two criteria No physical signs of malnutrition #1 Nutrition Diagnosis Inadequate oral intake Etiology ARF As Evidenced by Signs and Symptoms Pt on vent and unable to consume PO Is patient on ventilator? Yes Is Patient Ambulatory and/or Out of Bed No REE-([facility]-confined to bed) [phone] Calculation Used for Recommendations [facility] Additional Notes Protein needs are 103-172g (1. 2-2g/kg) Fluid needs are 1ml/kcal Nutrition Intervention Change Diet Order: TF consult or extubation Nutrition Support: once consulted Nepro at 45ml/ hr Flush with 200ml q4h Kcal 1,944 Protein (gm) 87 Fluid (mL) 785 Goal #1 TF consult or extubation Anticipated Discharge Needs: Unable to determine at this time Follow-Up By: 02/21/20 Additional Comments Follow for TF consult or extubation
[2020-02-19 10:01] LABS: Calcium 7.2 mg/dL (8.4-10.2)
[2020-02-19] MEDS: FAMOTIDINE 20 MG/2 ML INJ IV SCH (10:14)
[2020-02-19] MEDS: ASPIRIN 81 MG TAB CHEW PO SCH (10:14)
[2020-02-19] MEDS: CEFEPIME/NS 2 GM/100 ML 2 GM/100 ML BAG IV SCH (10:14)
[2020-02-19] MEDS: DOCUSATE SODIUM 100 MG CAP PO SCH ×2 (10:15→21:54)
--- NOTE | 2020-02-19 11:09 | Consultation ---
History of Present Illness - Reason for Consult Consult date: 02/19/20 resp failure, h/o COVID Requesting physician: JOSE A DENG - History of Present Illness 74 y/o male with history of CVA with left hemiparesis, diabetes mellitus, hypertension, dyslipidemia, dementia and peripheral vascular disease, from [facility], admitted on due to AMS and low O2 sats. Oxygen saturation found down to the 60s on room air. EMS intubated the patient in route Patient w as COVID positive early in January 2020, then admitted to [facility] from 02/05/2020- 02/14/2020, repeat COVID PCR neg x 2. During admission patient was intubated. Sputum were positive for MDR Proteus, MRSA and H flu. MRSA PCR positive. Patient treated with ceftriaxone and dexamethasone. In the ED, temp 99.1, BP 60/42, R 12, HR 90, WBC 23.5. Hg 9.1. Ferritin 1191. Ddmer >10,000. CRP 18. LDH 381. Creat 3.7. Lactate 2.7. AST65/ALT81. CXR bibasilar opacities. Review of Systems: unable to obtain Past History Past Medical History: hypertension, hyperlipidemia, stroke (w/left hemiparesis), other (PVD, dementia) Past Surgical History: Other (vascath placement at last hospital stay) Social history: other (Unknown) Family history: other (Unknown) Medications and Allergies Allergies Allergy/AdvReac Type Severity Reaction Status Date / Time No Known Allergies Allergy Unverified 05/01/15 23:41 Home Medications Medication Instructions Recorded Confirmed Last Taken Type Acetaminophen [Acetaminophen TAB] 650 mg PO Q8H PRN 05/02/15 02/18/20 Unknown History Albuterol Sulfate [Albuterol 0.63% 0.63 mg IH Q6H PRN 05/02/15 02/18/20 Unknown History NEBS] Aspirin [Aspirin BABY CHEW TAB] 81 mg PO DAILY 05/02/15 02/18/20 05/01/15 History AtorvaSTATin [Lipitor] 20 mg PO QHS 05/02/15 02/18/20 05/01/15 History Docusate Sodium [Colace CAP] 100 mg PO BID 05/02/15 02/18/20 05/02/15 History Insulin Lispro [HumaLOG VIAL] See Protocol SUB-Q ACHS 05/02/15 02/18/20 05/01/15 History amLODIPine 5 mg PO DAILY 05/02/15 02/18/20 05/01/15 History Active Meds: Active Medications Aspirin (Baby Aspirin) 81 mg PO DAILY [facility] Last Admin: 02/19/20 10:14 Dose: 81 mg Documented by: Atorvastatin Calcium (Lipitor) 20 mg PO QHS LOS Last Admin: 02/18/20 23:51 Dose: 20 mg Documented by: Dextrose (D50w (25gm) Syringe) 50 ml IV Q30MIN PRN; Protocol PRN Reason: Hypoglycemia Docusate Sodium (Colace) 100 mg PO BID [facility] Last Admin: 02/19/20 10:15 Dose: Not Given Documented by: Famotidine (Pepcid) 20 mg IV DAILY [facility] Last Admin: 02/19/20 10:14 Dose: 20 mg Documented by: Fentanyl (Sublimaze) 50 mcg IV Q10MIN PRN PRN Reason: ANALGESIA Last Admin: 02/18/20 02:30 Dose: 50 mcg Documented by: Hydrophilic Ointment (Vaseline Lip Therapy) 1 applic TP Q2HR PRN PRN Reason: Dry Lips Norepinephrine (Levophed Drip 4 Mg/Ns 250 Ml) 4 mg in 250 mls @ 7.5 mls/hr IV TITR LOS; Protocol Last Titration: 02/19/20 10:15 Dose: 8 mcg/min, 30 mls/hr Documented by: Epinephrine 8 mg/ Sodium (Chloride) 250 mls @ 3.75 mls/hr IV TITR ONE; Protocol Stop: 02/20/20 16:44 Last Titration: 02/18/20 12:30 Dose: 0 mcg/min, 0 mls/hr Documented by: Heparin Sodium/Sodium Chloride (Heparin/ 0.45% Nacl-25,000 Unit/500 Ml) 25,000 unit in 500 mls @ 20 mls/hr IV TITRATE LOS; Protocol Last Titration: 02/19/20 04:27 Dose: 700 units/hr, 14 mls/hr Documented by: Fentanyl Citrate (Fentanyl Drip Premix) 2,000 mcg in 100 mls @ 4.309 mls/hr IV TITR LOS; Protocol Last Admin: 02/19/20 06:24 Dose: 2 mcg/kg/hr, 8.618 mls/hr Documented by: Sodium Chloride (Nacl 0.9% 1000 Ml) 1,000 mls @ 75 mls/hr IV DIRECT LOS Cefepime HCl (Cefepime/Ns 2 Gm/100 Ml) 2 gm in 100 mls @ 200 mls/hr IV Q24HR LOS; Protocol Last Admin: 02/19/20 10:14 Dose: 200 mls/hr Documented by: Vasopressin 20 unit/ Sodium (Chloride) 101 mls @ 9.09 mls/hr IV TITR LOS; Protocol Last Admin: 02/19/20 06:46 Dose: 0.03 units/min, 9.09 mls/hr Documented by: Sodium Bicarbonate 150 meq/ (Dextrose) 1,150 mls @ 75 mls/hr IV DIRECT LOS Last Admin: 02/19/20 04:26 Dose: 75 mls/hr Documented by: Insulin Human Regular (Humulin R) 0 unit SUB-Q Q6HR LOS; Protocol Last Admin: 02/19/20 00:03 Dose: Not Given Documented by: Magnesium Hydroxide (Milk Of Magnesia) 30 ml PO Q4H PRN PRN Reason: Constipation Multi-Ingred Cream/Lotion/Oil/Oint (Artificial Tears Ophth Oint) 1 applic OU Q4HR PRN PRN Reason: Dry Eye(s) Last Admin: 02/19/20 04:25 Dose: 1 applic Documented by: Pneumococcal Polyvalent Vaccine (Pneumovax 23) 0.5 ml IM .ONCE ONE Stop: 02/19/20 12:01 Sodium Chloride (Sodium Chloride Flush Syringe 10 Ml) 10 ml IV BID LOS Last Admin: 02/19/20 10:14 Dose: 10 ml Documented by: Sodium Chloride (Sodium Chloride Flush Syringe 10 Ml) 10 ml IV PRN PRN PRN Reason: LINE FLUSH Physical Examination - Physical Exam Narrative exam: Physical Exam: Constitutional: sedated intubated Head, Ears, Nose: Normocephalic, atraumatic. External ears, nose normal Oral: +ETT Eyes: Conjunctivae/corneas clear. No icterus. No ptosis. Neck: limited Cardiovascular: tachy Respiratory: limited GI: limited Musculoskeletal: limited Skin: limited Hem/Lymphatic: limited Psych: limited Neurological: limited - Constitutional Vitals: Vital Signs Temp Pulse Resp BP Pulse Ox 143 F H 102 H 20 96/56 100 02/19/20 05:43 02/19/20 08:12 02/19/20 06:45 02/19/20 08:12 02/19/20 08:12 Temperature -Last 24 Hours Temperature 143 F Temperature 97.7 F Temperature 99.5 F Temperature 99.4 F Results - Labs CBC & Chem 7: 02/19/20 04:00 02/19/20 09:10 Labs: Abnormal lab results 02/18/20 02/18/20 02/18/20 Range/Units 10:10 12:14 17:32 WBC (4.5-11.0) K/mm3 RBC (3.65-5.03) M/mm3 Hgb (11.8-15.2) gm/dl Hct (35.5-45.6) % RDW (13.2-15.2) % Lymph % (Auto) (13.4-35.0) % Valencia # (0.0-0.8) K/mm3 Seg Neutrophils % (40.0-70.0) % Seg Neutrophils # (1.8-7.7) K/mm3 PT (12.2-14.9) Sec. INR (0.87-1.13) Heparin Anti-Xa Level (0.3-0.7) U.I./ml ABG pO2 (80.0-90.0) mm Hg ABG HCO3 (20.0-26.0) mmol/L ABG Base Excess (-2.0-3.0) mmol/L ABG Hemoglobin (14.0-18.0) gm/dl Chloride (98-107) mmol/L Carbon Dioxide (22-30) mmol/L BUN (9-20) mg/dL Creatinine (0.8-1.3) mg/dL Glucose (75-100) mg/dL POC Glucose 193 H 191 H (70-105) Calcium (8.4-10.2) mg/dL Total Creatine Kinase 5660 H (55-170) units/L Troponin T 1.030 H* D (0.00-0.029) ng/mL Urine Creatinine (0.1-20.0) mg/dL Urine Chloride (110-250) mmolL Urine Total Protein (5-11.8) mg/dL 02/18/20 02/18/20 02/19/20 Range/Units 17:40 17:40 00:04 WBC (4.5-11.0) K/mm3 RBC (3.65-5.03) M/mm3 Hgb (11.8-15.2) gm/dl Hct (35.5-45.6) % RDW (13.2-15.2) % Lymph % (Auto) (13.4-35.0) % Valencia # (0.0-0.8) K/mm3 Seg Neutrophils % (40.0-70.0) % Seg Neutrophils # (1.8-7.7) K/mm3 PT (12.2-14.9) Sec. INR (0.87-1.13) Heparin Anti-Xa Level (0.3-0.7) U.I./ml ABG pO2 (80.0-90.0) mm Hg ABG HCO3 (20.0-26.0) mmol/L ABG Base Excess (-2.0-3.0) mmol/L ABG Hemoglobin (14.0-18.0) gm/dl Chloride 111.4 H (98-107) mmol/L Carbon Dioxide 11 L (22-30) mmol/L BUN 77 H (9-20) mg/dL Creatinine 2.8 H (0.8-1.3) mg/dL Glucose 168 H (75-100) mg/dL POC Glucose 145 H (70-105) Calcium 7.2 L (8.4-10.2) mg/dL Total Creatine Kinase (55-170) units/L Troponin T (0.00-0.029) ng/mL Urine Creatinine 35.2 H (0.1-20.0) mg/dL Urine Chloride 81.0 L (110-250) mmolL Urine Total Protein 38 H (5-11.8) mg/dL 02/19/20 02/19/20 02/19/20 Range/Units 01:50 03:20 04:00 WBC 17.6 H (4.5-11.0) K/mm3 RBC 2.76 L (3.65-5.03) M/mm3 Hgb 8.1 L (11.8-15.2) gm/dl Hct 25.0 L (35.5-45.6) % RDW 16.6 H (13.2-15.2) % Lymph % (Auto) 10.5 L (13.4-35.0) % Valencia # 1.2 H (0.0-0.8) K/mm3 Seg Neutrophils % 82.1 H (40.0-70.0) % Seg Neutrophils # 14.5 H (1.8-7.7) K/mm3 PT 18.6 H (12.2-14.9) Sec. INR 1.53 H (0.87-1.13) Heparin Anti-Xa Level 0.18 L (0.3-0.7) U.I./ml ABG pO2 (80.0-90.0) mm Hg ABG HCO3 (20.0-26.0) mmol/L ABG Base Excess (-2.0-3.0) mmol/L ABG Hemoglobin (14.0-18.0) gm/dl Chloride (98-107) mmol/L Carbon Dioxide (22-30) mmol/L BUN (9-20) mg/dL Creatinine (0.8-1.3) mg/dL Glucose (75-100) mg/dL POC Glucose (70-105) Calcium (8.4-10.2) mg/dL Total Creatine Kinase (55-170) units/L Troponin T (0.00-0.029) ng/mL Urine Creatinine (0.1-20.0) mg/dL Urine Chloride (110-250) mmolL Urine Total Protein (5-11.8) mg/dL 02/19/20 02/19/20 02/19/20 Range/Units 05:08 05:38 05:50 WBC (4.5-11.0) K/mm3 RBC (3.65-5.03) M/mm3 Hgb (11.8-15.2) gm/dl Hct (35.5-45.6) % RDW (13.2-15.2) % Lymph % (Auto) (13.4-35.0) % Valencia # (0.0-0.8) K/mm3 Seg Neutrophils % (40.0-70.0) % Seg Neutrophils # (1.8-7.7) K/mm3 PT (12.2-14.9) Sec. INR (0.87-1.13) Heparin Anti-Xa Level (0.3-0.7) U.I./ml ABG pO2 168.2 H (80.0-90.0) mm Hg ABG HCO3 14.9 L (20.0-26.0) mmol/L ABG Base Excess -9.5 L (-2.0-3.0) mmol/L ABG Hemoglobin 8.3 L (14.0-18.0) gm/dl Chloride 111.6 H (98-107) mmol/L Carbon Dioxide 14 L (22-30) mmol/L BUN 69 H (9-20) mg/dL Creatinine 2.6 H (0.8-1.3) mg/dL Glucose 151 H (75-100) mg/dL POC Glucose 143 H (70-105) Calcium 7.4 L (8.4-10.2) mg/dL Total Creatine Kinase 3552 H (55-170) units/L Troponin T (0.00-0.029) ng/mL Urine Creatinine (0.1-20.0) mg/dL Urine Chloride (110-250) mmolL Urine Total Protein (5-11.8) mg/dL 02/19/20 Range/Units 09:10 WBC (4.5-11.0) K/mm3 RBC (3.65-5.03) M/mm3 Hgb (11.8-15.2) gm/dl Hct (35.5-45.6) % RDW (13.2-15.2) % Lymph % (Auto) (13.4-35.0) % [place] # (0.0-0.8) K/mm3 Seg Neutrophils % (40.0-70.0) % Seg Neutrophils # (1.8-7.7) K/mm3 PT (12.2-14.9) Sec. INR (0.87-1.13) Heparin Anti-Xa Level (0.3-0.7) U.I./ml ABG pO2 (80.0-90.0) mm Hg ABG HCO3 (20.0-26.0) mmol/L ABG Base Excess (-2.0-3.0) mmol/L ABG Hemoglobin (14.0-18.0) gm/dl Chloride 111.9 H (98-107) mmol/L Carbon Dioxide 15 L (22-30) mmol/L BUN 68 H (9-20) mg/dL Creatinine 2.5 H (0.8-1.3) mg/dL Glucose 154 H (75-100) mg/dL POC Glucose (70-105) Calcium 7.2 L (8.4-10.2) mg/dL Total Creatine Kinase (55-170) units/L Troponin T (0.00-0.029) ng/mL Urine Creatinine (0.1-20.0) mg/dL Urine Chloride (110-250) mmolL Urine Total Protein (5-11.8) mg/dL Assessment and Plan Cultures: Coronavirus PCR 02/05/2020: Negative Coronavirus PCR 02/10/2020: Negative Coronavirus PCR 02/18/2020: Negative MRSA nasal PCR 02/05/2020: Positive 02/04/2020 blood culture: No growth 02/04/2020 tracheal aspirate: Proteus, Hemophilus, MRSA 02/14/2020 blood culture: No growth 02/17/2020 tracheal aspirate: normal resp demetrius 02/17/2020 blood culture: No growth today A/P: 74 y/o male with history of CVA with left hemiparesis, diabetes mellitus, hypertension, dyslipidemia, dementia and peripheral vascular disease, from [facility], recent COVID, admitted on due to AMS and low O2 sats: #Severe sepsis with septic shock: on 2 pressors, elevated lactate; source likely pneumonia/suspect PE post COVID. #Bilateral pneumonia: likely bacterial pneumonia. COVID markers elevated Ferritin 1191. Ddmer >10,000. CRP 18. LDH 381. Recent sputum cx with PMDR Proteus, MRSA. H flu. MRSA PCR positive. Elevated procal however possible due to renal failure #Acute resp failure: intubated. Very high ddimer suspect PE post COVID. #Elevated LFTs: from sepsis #AMMY on CKD: renally adjusted meds, required HD during previous admission Recs: -Continue cefepime and vancomycin renally adjuested -Agree with full anticoagualtion -When stable VQ scan or chest CTA if creat better -femoral TLC should be removed soon High risk mortality / guarded prognosis consider palliative care MD [facility] C: [phone] O: [phone]
--- NOTE | 2020-02-19 11:49 | Progress Note ---
Assessment and Plan Acute hypoxic respiratory failure Septic Shock 2/2 PNA Bilateral PNA Acute Kidney Injury 2/2 ischemic ATN from septic shock, Rhabdo, on underlying CKD, r/o obstruction Elevated D-Dimers Plan: - Renal function reviewed, SCr level was 2.6 today, yesterday's SCr level was 2.8 - Review of labs in 2015 in [facility] did show SCr level between 1.6-1.8, most recent SCr level in [facility] prior to this admission was 2.2 on 02/14/20 - On D5W +150 mEq sodium bicarbonate infusion at 75 ml/hr - CK level was elevated so could have AMMY from contribution from Rhabdo as well - On vasopressin and levaphed drips - Trend daily CK levels - CK level 3552 today, trending down - Urine eosinophils negative, calculated protein to cr ratio 1 g, monitor - Pt on isolation for concern of COVID-19 - ID on board, f/u recs - Bowling Catheter: Yes (nurse stated pt has indwelling bowling cath) - Check Renal US - Renally dose meds - Intake= 3614 ml Output= 1750 ml (Net= 1864 ml) - Renal plan d/w Dr Sosa Subjective Date of service: 02/19/20 Interval history: Pt with recent + COVID-19, pt not examined to limit direct contact/resources, reviewed medical chart, labs, and notes. Objective - Vital Signs Vital signs: Vital Signs - 12hr 02/18/20 02/19/20 02/19/20 23:45 00:00 00:15 Temperature Pulse Rate 105 H 113 H 110 H Respiratory 20 20 18 Rate Blood Pressure 115/66 115/64 111/62 O2 Sat by Pulse 100 99 100 Oximetry 02/19/20 02/19/20 02/19/20 00:30 00:45 01:00 Temperature Pulse Rate 102 H 102 H 107 H Respiratory 20 20 17 Rate Blood Pressure 121/72 119/71 122/81 O2 Sat by Pulse 100 100 100 Oximetry 02/19/20 02/19/20 02/19/20 01:15 01:30 01:45 Temperature Pulse Rate 105 H 104 H 106 H Respiratory 20 20 20 Rate Blood Pressure 121/75 123/76 108/69 O2 Sat by Pulse 98 100 100 Oximetry 02/19/20 02/19/20 02/19/20 02:00 02:15 02:30 Temperature Pulse Rate 115 H 99 H 101 H Respiratory 20 20 20 Rate Blood Pressure 110/60 109/70 123/69 O2 Sat by Pulse 100 100 100 Oximetry 02/19/20 02/19/20 02/19/20 02:45 03:01 03:15 Temperature Pulse Rate 107 H 111 H 110 H Respiratory 21 20 14 Rate Blood Pressure 110/60 100/63 103/59 O2 Sat by Pulse 100 99 Oximetry 02/19/20 02/19/20 02/19/20 03:20 03:30 03:45 Temperature 97.7 F Pulse Rate 115 H 110 H Respiratory 12 13 Rate Blood Pressure 99/58 106/55 O2 Sat by Pulse 96 99 Oximetry 02/19/20 02/19/20 02/19/20 04:01 04:15 04:31 Temperature Pulse Rate 112 H 107 H 108 H Respiratory 10 L 20 10 L Rate Blood Pressure 95/74 101/68 101/68 O2 Sat by Pulse 100 100 Oximetry 02/19/20 02/19/20 02/19/20 04:45 05:01 05:11 Temperature Pulse Rate 105 H 90 100 H Respiratory 20 20 Rate Blood Pressure 115/60 53/14 53/14 O2 Sat by Pulse 100 100 100 Oximetry 02/19/20 02/19/20 02/19/20 05:15 05:30 05:43 Temperature 143 F H Pulse Rate 102 H 101 H Respiratory 20 20 Rate Blood Pressure 116/85 119/73 O2 Sat by Pulse 100 100 Oximetry 02/19/20 02/19/20 02/19/20 05:45 06:00 06:15 Temperature Pulse Rate 101 H 89 108 H Respiratory 20 20 20 Rate Blood Pressure 117/75 127/67 101/56 O2 Sat by Pulse 100 100 100 Oximetry 02/19/20 02/19/20 02/19/20 06:30 06:45 08:12 Temperature Pulse Rate 104 H 104 H 102 H Respiratory 20 20 Rate Blood Pressure 110/68 105/66 96/56 O2 Sat by Pulse 100 100 100 Oximetry - Lab 02/19/20 04:00 02/19/20 09:10 Most recent lab results ABG pH 7.355 pH Units (7.350-7.450) 02/19/20 05:08 ABG pCO2 27.3 mm Hg 02/19/20 05:08 ABG pO2 168.2 mm Hg (80.0-90.0) H 02/19/20 05:08 ABG HCO3 14.9 mmol/L (20.0-26.0) L 02/19/20 05:08 ABG O2 Saturation 99.0 % (95.0-99.0) 02/19/20 05:08 Calcium 7.2 mg/dL (8.4-10.2) L 02/19/20 09:10 Urine Creatinine 35.2 mg/dL (0.1-20.0) H 02/18/20 17:40 Urine Sodium 104 mmol/L 02/18/20 17:40 Urine Total Protein 38 mg/dL (5-11.8) H 02/18/20 17:40 Medications & Allergies - Medications Allergies/Adverse Reactions: Allergies No Known Allergies Allergy (Unverified 05/01/15 23:41) Home Medications: Home Medications Medication Instructions Recorded Confirmed Last Taken Type Acetaminophen [Acetaminophen TAB] 650 mg PO Q8H PRN 05/02/15 02/18/20 Unknown History Albuterol Sulfate [Albuterol 0.63% 0.63 mg IH Q6H PRN 05/02/15 02/18/20 Unknown History NEBS] Aspirin [Aspirin BABY CHEW TAB] 81 mg PO DAILY 05/02/15 02/18/20 05/01/15 History AtorvaSTATin [Lipitor] 20 mg PO QHS 05/02/15 02/18/20 05/01/15 History Docusate Sodium [Colace CAP] 100 mg PO BID 05/02/15 02/18/20 05/02/15 History Insulin Lispro [HumaLOG VIAL] See Protocol SUB-Q ACHS 05/02/15 02/18/20 05/01/15 History amLODIPine 5 mg PO DAILY 05/02/15 02/18/20 05/01/15 History Active Medications: Generic Name Dose Route Start Last Admin Trade Name Freq PRN Reason Stop Dose Admin Aspirin 81 mg 02/18/20 10:00 02/19/20 10:14 Baby Aspirin PO 81 mg DAILY LOS Administration Atorvastatin Calcium 20 mg 02/18/20 22:00 02/18/20 23:51 Lipitor PO 20 mg QHS LOS Administration Dextrose 50 ml 02/18/20 12:55 D50w (25gm) Syringe IV Q30MIN PRN Hypoglycemia Protocol Docusate Sodium 100 mg 02/18/20 10:00 02/19/20 10:15 Colace PO Not Given BID LOS Famotidine 20 mg 02/18/20 10:00 02/19/20 10:14 Pepcid IV 20 mg DAILY LOS Administration Fentanyl 50 mcg 02/18/20 01:08 02/18/20 02:30 Sublimaze IV 50 mcg Q10MIN PRN Administration ANALGESIA Hydrophilic Ointment 1 applic 02/17/20 15:12 Vaseline Lip Therapy TP Q2HR PRN Dry Lips Norepinephrine 4 mg in 250 mls @ 7.5 mls/hr 02/17/20 20:00 02/19/20 10:15 Levophed Drip 4 Mg/Ns 250 Ml IV 8 mcg/min TITR LOS 30 mls/hr Titration Protocol 2 MCG/MIN Epinephrine 8 mg/ Sodium 250 mls @ 3.75 mls/hr 02/17/20 22:05 02/18/20 12:30 Chloride IV 02/20/20 16:44 0 mcg/min TITR ONE 0 mls/hr Titration Protocol 2 MCG/MIN Heparin Sodium/Sodium Chloride 25,000 unit in 500 mls @ 20 mls/hr 02/17/20 23:00 02/19/20 04:27 Heparin/ 0.45% Nacl-25,000 Unit/500 Ml IV 700 units/hr TITRATE LOS 14 mls/hr Titration Protocol 1,000 UNITS/HR Fentanyl Citrate 2,000 mcg in 100 mls @ 4.309 mls/hr 02/18/20 02:00 02/19/20 06:24 Fentanyl Drip Premix IV 2 mcg/kg/hr TITR LOS 8.618 mls/hr Administration Protocol 1 MCG/KG/HR Sodium Chloride 1,000 mls @ 75 mls/hr 02/18/20 02:45 Nacl 0.9% 1000 Ml IV DIRECT LOS Cefepime HCl 2 gm in 100 mls @ 200 mls/hr 02/18/20 09:00 02/19/20 10:14 Cefepime/Ns 2 Gm/100 Ml IV 200 mls/hr Q24HR LOS Administration Protocol Vasopressin 20 unit/ Sodium 101 mls @ 9.09 mls/hr 02/18/20 10:00 02/19/20 06:46 Chloride IV 0.03 units/min TITR LOS 9.09 mls/hr Administration Protocol 0.03 UNITS/MIN Sodium Bicarbonate 150 meq/ 1,150 mls @ 75 mls/hr 02/18/20 13:00 02/19/20 04:26 Dextrose IV 75 mls/hr DIRECT LOS Administration Insulin Human Regular 0 unit 02/18/20 13:00 02/19/20 00:03 Humulin R SUB-Q Not Given Q6HR [facility] Protocol Magnesium Hydroxide 30 ml 02/18/20 02:31 Milk Of Magnesia PO Q4H PRN Constipation Multi-Ingred Cream/Lotion/Oil/Oint 1 applic 02/17/20 15:12 02/19/20 04:25 Artificial Tears Ophth Oint OU 1 applic Q4HR PRN Administration Dry Eye(s) Pneumococcal Polyvalent Vaccine 0.5 ml 02/19/20 12:00 Pneumovax 23 IM 02/19/20 12:01 .ONCE ONE Sodium Chloride 10 ml 02/18/20 10:00 02/19/20 10:14 Sodium Chloride Flush Syringe 10 Ml IV 10 ml BID LOS Administration Sodium Chloride 10 ml 02/18/20 02:31 Sodium Chloride Flush Syringe 10 Ml IV PRN PRN LINE FLUSH
[2020-02-19] MEDS ORDERED: PNEUMOCOCCAL 23 Valent 0.5 ML VIAL IM ONE (12:00)
--- NOTE | 2020-02-19 12:40 | Progress Note ---
Assessment and Plan 74 y/o male with known dementia, mumbles very few words at baseline if any, blank stares, admitted with altered mental status, respiratory failure, worsening renal failure and sepsis with shock 1. Pulm-Down to 30%. Epi is now weaned off. On Levop at 8 and vaso. Plenty of room to wean down. Will also stop sedation which will help with BP. Would like to do SBT today and possibly extubate. 2. CV-hypotensive, possibly from sepsis. Exact etiology unknown. WC is elevated but improved compared to admit. ID concerned about PE but oxygenation is stable. If PE large enough to make hypotensive, should be more hypoxic. Do agree with checking dopplers given his prior history of COVID but I don't think that is responsible for cardiovascular collapse. My need echo at some point 3. Renal- Improving today. Appreciate renal help, and reviewed their recs. 4. Very guarded prognosis, sister is very reasonable, will attempt to reach out to her. Very similar presentation to last time and patient responded to therapy and was able to be discharged. Hopefully the same can happen. CCT 31 minutes. Subjective Date of service: 02/19/20 Interval history: Patient started on Fentanyl last night. Sedated this am, not responsive. Asked nursing to turn off. ABG this am was good on 40%, now dropped down to 30. Blood cultures negative. Urine has less than 10k colony counts and sputum has what is looking like normal demetrius. ID consulted and saw today. Objective Vital Signs - 12hr 02/19/20 02/19/20 02/19/20 00:45 01:00 01:15 Temperature Pulse Rate 102 H 107 H 105 H Respiratory 20 17 20 Rate Blood Pressure 119/71 122/81 121/75 O2 Sat by Pulse 100 100 98 Oximetry 02/19/20 02/19/20 02/19/20 01:30 01:45 02:00 Temperature Pulse Rate 104 H 106 H 115 H Respiratory 20 20 20 Rate Blood Pressure 123/76 108/69 110/60 O2 Sat by Pulse 100 100 100 Oximetry 02/19/20 02/19/20 02/19/20 02:15 02:30 02:45 Temperature Pulse Rate 99 H 101 H 107 H Respiratory 20 20 21 Rate Blood Pressure 109/70 123/69 110/60 O2 Sat by Pulse 100 100 100 Oximetry 02/19/20 02/19/20 02/19/20 03:01 03:15 03:20 Temperature 97.7 F Pulse Rate 111 H 110 H Respiratory 20 14 Rate Blood Pressure 100/63 103/59 O2 Sat by Pulse 99 Oximetry 02/19/20 02/19/20 02/19/20 03:30 03:45 04:01 Temperature Pulse Rate 115 H 110 H 112 H Respiratory 12 13 10 L Rate Blood Pressure 99/58 106/55 95/74 O2 Sat by Pulse 96 99 100 Oximetry 02/19/20 02/19/20 02/19/20 04:15 04:31 04:45 Temperature Pulse Rate 107 H 108 H 105 H Respiratory 20 10 L 20 Rate Blood Pressure 101/68 101/68 115/60 O2 Sat by Pulse 100 100 Oximetry 02/19/20 02/19/20 02/19/20 05:01 05:11 05:15 Temperature Pulse Rate 90 100 H 102 H Respiratory 20 20 Rate Blood Pressure 53/14 53/14 116/85 O2 Sat by Pulse 100 100 100 Oximetry 02/19/20 02/19/20 02/19/20 05:30 05:43 05:45 Temperature 143 F H Pulse Rate 101 H 101 H Respiratory 20 20 Rate Blood Pressure 119/73 117/75 O2 Sat by Pulse 100 100 Oximetry 02/19/20 02/19/20 02/19/20 06:00 06:15 06:30 Temperature Pulse Rate 89 108 H 104 H Respiratory 20 20 20 Rate Blood Pressure 127/67 101/56 110/68 O2 Sat by Pulse 100 100 100 Oximetry 02/19/20 02/19/20 02/19/20 06:45 08:12 12:00 Temperature Pulse Rate 104 H 102 H 100 H Respiratory 20 Rate Blood Pressure 105/66 96/56 96/59 O2 Sat by Pulse 100 100 100 Oximetry Constitutional: appears uncomfortable, other (moving but not purposeful) ENT: other (orally intubated critically ill on vent) Neck: supple Effort: mildly labored Ascultation: Bilateral: clear, diminished breath sounds Percussion: Bilateral: not dull Cardiovascular: other (sinus tachycardia) Neurologic: unable to assess CBC and BMP: 02/19/20 04:00 02/19/20 09:10 ABG, PT/INR, D-dimer: ABG ABG pH 7.355 pH Units (7.350-7.450) 02/19/20 05:08 ABG pCO2 27.3 mm Hg 02/19/20 05:08 ABG pO2 168.2 mm Hg (80.0-90.0) H 02/19/20 05:08 ABG O2 Saturation 99.0 % (95.0-99.0) 02/19/20 05:08 PT/INR, D-dimer PT 18.6 Sec. (12.2-14.9) H 02/19/20 03:20 INR 1.53 (0.87-1.13) H 02/19/20 03:20 D-Dimer > 84060 ng/mlDDU (0-234) H 02/17/20 16:28 Abnormal lab findings: Abnormal Labs 02/17/20 02/17/20 02/17/20 16:28 16:28 16:28 WBC 23.5 H RBC 3.07 L Hgb 9.1 L Hct 28.4 L RDW 16.8 H Lymph % (Auto) [place] # Seg Neutrophils % Seg Neuts % (Manual) 84.0 H Lymphocytes % (Manual) 8.0 L Monocytes % (Manual) 8.0 H Seg Neutrophils # Seg Neutrophils # Man 19.7 H Monocytes # (Manual) 1.9 H PT 15.3 H INR 1.19 H D-Dimer Heparin Anti-Xa Level ABG pH ABG pO2 ABG HCO3 ABG O2 Saturation ABG Base Excess ABG Hemoglobin Sodium 136 L Potassium 5.4 H Chloride Carbon Dioxide 15 L BUN 91 H Creatinine 3.7 H D Glucose 120 H POC Glucose Lactic Acid Calcium 7.9 L Ferritin AST 65 H ALT 81 H Lactate Dehydrogenase Total Creatine Kinase CK-MB (CK-2) Troponin T C-Reactive Protein NT-Pro-B Natriuret Pep Total Protein 5.4 L Albumin 2.3 L Triglycerides HDL Cholesterol Urine WBC (Auto) Urine Creatinine Urine Chloride Urine Total Protein 02/17/20 02/17/20 02/17/20 16:28 16:28 16:28 WBC RBC Hgb Hct RDW Lymph % (Auto) [place] # Seg Neutrophils % Seg Neuts % (Manual) Lymphocytes % (Manual) Monocytes % (Manual) Seg Neutrophils # Seg Neutrophils # Man Monocytes # (Manual) PT INR D-Dimer > 83172 H Heparin Anti-Xa Level ABG pH ABG pO2 ABG HCO3 ABG O2 Saturation ABG Base Excess ABG Hemoglobin Sodium Potassium Chloride Carbon Dioxide BUN Creatinine Glucose POC Glucose Lactic Acid 2.70 H* Calcium Ferritin AST ALT Lactate Dehydrogenase Total Creatine Kinase CK-MB (CK-2) Troponin T 0.748 H* C-Reactive Protein NT-Pro-B Natriuret Pep 1980 H Total Protein Albumin Triglycerides HDL Cholesterol Urine WBC (Auto) Urine Creatinine Urine Chloride Urine Total Protein 02/17/20 02/17/20 02/17/20 16:28 16:28 18:35 WBC RBC Hgb Hct RDW Lymph % (Auto) [place] # Seg Neutrophils % Seg Neuts % (Manual) Lymphocytes % (Manual) Monocytes % (Manual) Seg Neutrophils # Seg Neutrophils # Man Monocytes # (Manual) PT INR D-Dimer Heparin Anti-Xa Level ABG pH 7.303 L ABG pO2 327.3 H ABG HCO3 12.5 L ABG O2 Saturation 99.5 H ABG Base Excess -12.3 L ABG Hemoglobin 11.2 L Sodium Potassium Chloride Carbon Dioxide BUN Creatinine Glucose POC Glucose Lactic Acid Calcium Ferritin 1191.0 H AST ALT Lactate Dehydrogenase 381 H Total Creatine Kinase CK-MB (CK-2) Troponin T C-Reactive Protein 18.20 H NT-Pro-B Natriuret Pep Total Protein Albumin Triglycerides HDL Cholesterol Urine WBC (Auto) Urine Creatinine Urine Chloride Urine Total Protein 02/17/20 02/18/20 02/18/20 Unknown 05:20 10:10 WBC RBC Hgb Hct RDW Lymph % (Auto) [place] # Seg Neutrophils % Seg Neuts % (Manual) Lymphocytes % (Manual) Monocytes % (Manual) Seg Neutrophils # Seg Neutrophils # Man Monocytes # (Manual) PT INR D-Dimer Heparin Anti-Xa Level ABG pH 7.217 L ABG pO2 165.7 H ABG HCO3 10.5 L ABG O2 Saturation ABG Base Excess -15.7 L ABG Hemoglobin 10.3 L Sodium Potassium Chloride Carbon Dioxide BUN Creatinine Glucose POC Glucose Lactic Acid Calcium Ferritin AST ALT Lactate Dehydrogenase Total Creatine Kinase 5660 H CK-MB (CK-2) 78.0 H Troponin T 1.030 H* D C-Reactive Protein NT-Pro-B Natriuret Pep Total Protein Albumin Triglycerides 164 H HDL Cholesterol 38 L Urine WBC (Auto) 17.0 H Urine Creatinine Urine Chloride Urine Total Protein 02/18/20 02/18/20 02/18/20 12:14 17:32 17:40 WBC RBC Hgb Hct RDW Lymph % (Auto) [place] # Seg Neutrophils % Seg Neuts % (Manual) Lymphocytes % (Manual) Monocytes % (Manual) Seg Neutrophils # Seg Neutrophils # Man Monocytes # (Manual) PT INR D-Dimer Heparin Anti-Xa Level ABG pH ABG pO2 ABG HCO3 ABG O2 Saturation ABG Base Excess ABG Hemoglobin Sodium Potassium Chloride Carbon Dioxide BUN Creatinine Glucose POC Glucose 193 H 191 H Lactic Acid Calcium Ferritin AST ALT Lactate Dehydrogenase Total Creatine Kinase CK-MB (CK-2) Troponin T C-Reactive Protein NT-Pro-B Natriuret Pep Total Protein Albumin Triglycerides HDL Cholesterol Urine WBC (Auto) Urine Creatinine 35.2 H Urine Chloride 81.0 L Urine Total Protein 38 H 02/18/20 02/19/20 02/19/20 17:40 00:04 01:50 WBC RBC Hgb Hct RDW Lymph % (Auto) [place] # Seg Neutrophils % Seg Neuts % (Manual) Lymphocytes % (Manual) Monocytes % (Manual) Seg Neutrophils # Seg Neutrophils # Man Monocytes # (Manual) PT INR D-Dimer Heparin Anti-Xa Level 0.18 L ABG pH ABG pO2 ABG HCO3 ABG O2 Saturation ABG Base Excess ABG Hemoglobin Sodium Potassium Chloride 111.4 H Carbon Dioxide 11 L BUN 77 H Creatinine 2.8 H Glucose 168 H POC Glucose 145 H Lactic Acid Calcium 7.2 L Ferritin AST ALT Lactate Dehydrogenase Total Creatine Kinase CK-MB (CK-2) Troponin T C-Reactive Protein NT-Pro-B Natriuret Pep Total Protein Albumin Triglycerides HDL Cholesterol Urine WBC (Auto) Urine Creatinine Urine Chloride Urine Total Protein 02/19/20 02/19/20 02/19/20 03:20 04:00 05:08 WBC 17.6 H RBC 2.76 L Hgb 8.1 L Hct 25.0 L RDW 16.6 H Lymph % (Auto) 10.5 L [place] # 1.2 H Seg Neutrophils % 82.1 H Seg Neuts % (Manual) Lymphocytes % (Manual) Monocytes % (Manual) Seg Neutrophils # 14.5 H Seg Neutrophils # Man Monocytes # (Manual) PT 18.6 H INR 1.53 H D-Dimer Heparin Anti-Xa Level ABG pH ABG pO2 168.2 H ABG HCO3 14.9 L ABG O2 Saturation ABG Base Excess -9.5 L ABG Hemoglobin 8.3 L Sodium Potassium Chloride Carbon Dioxide BUN Creatinine Glucose POC Glucose Lactic Acid Calcium Ferritin AST ALT Lactate Dehydrogenase Total Creatine Kinase CK-MB (CK-2) Troponin T C-Reactive Protein NT-Pro-B Natriuret Pep Total Protein Albumin Triglycerides HDL Cholesterol Urine WBC (Auto) Urine Creatinine Urine Chloride Urine Total Protein 02/19/20 02/19/20 02/19/20 05:38 05:50 09:10 WBC RBC Hgb Hct RDW Lymph % (Auto) [place] # Seg Neutrophils % Seg Neuts % (Manual) Lymphocytes % (Manual) Monocytes % (Manual) Seg Neutrophils # Seg Neutrophils # Man Monocytes # (Manual) PT INR D-Dimer Heparin Anti-Xa Level ABG pH ABG pO2 ABG HCO3 ABG O2 Saturation ABG Base Excess ABG Hemoglobin Sodium Potassium Chloride 111.6 H 111.9 H Carbon Dioxide 14 L 15 L BUN 69 H 68 H Creatinine 2.6 H 2.5 H Glucose 151 H 154 H POC Glucose 143 H Lactic Acid Calcium 7.4 L 7.2 L Ferritin AST ALT Lactate Dehydrogenase Total Creatine Kinase 3552 H CK-MB (CK-2) Troponin T C-Reactive Protein NT-Pro-B Natriuret Pep Total Protein Albumin Triglycerides HDL Cholesterol Urine WBC (Auto) Urine Creatinine Urine Chloride Urine Total Protein 02/19/20 11:41 WBC RBC Hgb Hct RDW Lymph % (Auto) [place] # Seg Neutrophils % Seg Neuts % (Manual) Lymphocytes % (Manual) Monocytes % (Manual) Seg Neutrophils # Seg Neutrophils # Man Monocytes # (Manual) PT INR D-Dimer Heparin Anti-Xa Level ABG pH ABG pO2 ABG HCO3 ABG O2 Saturation ABG Base Excess ABG Hemoglobin Sodium Potassium Chloride Carbon Dioxide BUN Creatinine Glucose POC Glucose 160 H Lactic Acid Calcium Ferritin AST ALT Lactate Dehydrogenase Total Creatine Kinase CK-MB (CK-2) Troponin T C-Reactive Protein NT-Pro-B Natriuret Pep Total Protein Albumin Triglycerides HDL Cholesterol Urine WBC (Auto) Urine Creatinine Urine Chloride Urine Total Protein
--- NOTE | 2020-02-19 13:34 | XRay Report ---
ABDOMEN 1 VIEW(S) 02/19/2020 1:06 PM INDICATION / CLINICAL INFORMATION: ngt placement for tube feed. COMPARISON: None available. FINDINGS: The tip of an esophagogastric tube projects over the body of the stomach in expected position. Signer Name: Silvestre Ordonez MD Signed: 02/19/2020 1:29 PM Workstation Name: [id number]
--- NOTE | 2020-02-19 15:06 | Progress Note ---
Assessment and Plan Suspect NSTEMI in the setting of septic shock/acute resp fail/AMMY. Continue heparin drip. Recommend V/Q scan vs chest CTA when stable. Obtain echo. Plan for ischemic eval when clinically stable. Wean pressors as tolerated. Prognosis remains guarded. Pt seen in conjunction with Dr. SAMANTHA Garay, who agrees with the assessment and plan of care. - Patient Problems (1) Acute respiratory failure Current Visit: Yes Status: Acute (2) Bilateral pneumonia Current Visit: Yes Status: Acute (3) Septic shock Current Visit: Yes Status: Acute (4) Acute kidney injury superimposed on CKD Current Visit: Yes Status: Acute (5) Anemia Current Visit: Yes Status: Acute (6) Elevated d-dimer Current Visit: Yes Status: Acute (7) NSTEMI (non-ST elevated myocardial infarction) Current Visit: Yes Status: Acute (8) HTN (hypertension) Current Visit: No Status: Chronic Qualifiers: Hypertension type: essential hypertension Qualified Code(s): I10 - Essential (primary) hypertension (9) HLD (hyperlipidemia) Current Visit: Yes Status: Chronic Qualifiers: Hyperlipidemia type: mixed hyperlipidemia Qualified Code(s): E78.2 - Mixed hyperlipidemia (10) DM2 (diabetes mellitus, type 2) Current Visit: Yes Status: Chronic (11) PVD (peripheral vascular disease) Current Visit: Yes Status: Chronic (12) H/O: CVA (cerebrovascular accident) Current Visit: Yes Status: Chronic Subjective Date of service: 02/19/20 Principal diagnosis: Septic Shock Interval history: Pt intubated/sedated upon exam. No acute events reported overnight. Tele reviewed - NSR 80-90s w/no acute events noted. Objective Last Vital Signs Temp 143 F H 02/19/20 05:43 Pulse 98 H 02/19/20 14:00 Resp 14 02/19/20 14:00 BP 95/62 02/19/20 14:00 Pulse Ox 100 02/19/20 14:52 - Physical Examination General: No Apparent Distress HEENT: Positive: Normocephaly Neck: Negative: JVD/HJR Cardiac: Positive: Reg Rate and Rhythm, S1/S2 Lungs: Positive: Decreased Breath Sounds Neuro: Positive: Other (intubated/sedated) Abdomen: Positive: Soft, Active Bowel Sounds Skin: Negative: Rash Musculoskeletal: No Fluid Collection Extremities: Present: upper extr. pulses, lower extr. pulses. Absent: edema - Labs and Meds Coagulation 02/19/20 Range/Units 03:20 PT 18.6 H (12.2-14.9) Sec. INR 1.53 H (0.87-1.13) CBC 02/19/20 Range/Units 04:00 WBC 17.6 H (4.5-11.0) K/mm3 RBC 2.76 L (3.65-5.03) M/mm3 Hgb 8.1 L (11.8-15.2) gm/dl Hct 25.0 L (35.5-45.6) % Plt Count 174 (140-440) K/mm3 Lymph # 1.8 (1.2-5.4) K/mm3 [place] # 1.2 H (0.0-0.8) K/mm3 Eos # 0.1 (0.0-0.4) K/mm3 Baso # 0.0 (0.0-0.1) K/mm3 Comprehensive Metabolic Panel 02/18/20 02/19/20 02/19/20 Range/Units 17:40 05:50 09:10 Sodium 140 142 142 (137-145) mmol/L Potassium 4.9 4.4 4.5 (3.6-5.0) mmol/L Chloride 111.4 H 111.6 H 111.9 H (98-107) mmol/L Carbon Dioxide 11 L 14 L 15 L (22-30) mmol/L BUN 77 H 69 H 68 H (9-20) mg/dL Creatinine 2.8 H 2.6 H 2.5 H (0.8-1.3) mg/dL Glucose 168 H 151 H 154 H (75-100) mg/dL Calcium 7.2 L 7.4 L 7.2 L (8.4-10.2) mg/dL - Imaging and Cardiology EKG: report reviewed, image reviewed Echo: pending - Telemetry EKG Rhythm: Sinus Rhythm - EKG Sinus rhythms and dysrhythmias: sinus rhythm
[2020-02-20] MEDS: INSULIN REGULAR, HUMAN 100 UNIT/ML 3ML VIAL SUB-Q SCH ×5 (00:38→23:57)
--- NOTE | 2020-02-20 03:36 | XRay Report ---
CHEST 1 VIEW INDICATION: follow up respiratory failure. COMPARISON: Previous day. FINDINGS: Support devices: NG tube unchanged. Heart: Stable. Lungs/Pleura: Lung volumes have diminished. Increasing bibasilar opacity. Additional findings: None. IMPRESSION: Interval worsening. Signer Name: Ervin Galvez MD Signed: 02/20/2020 3:31 AM Workstation Name: [id number]
[2020-02-20] MEDS: NORepinephrine/NS 4 MG-250 ML 4 MG/250 ML BAG IV SCH ×4 (04:52→22:14)
[2020-02-20] MEDS: VASOPRESSIN 20 UNIT in SODIUM CHLORIDE 0.9% 100 ML IV SCH (05:03)
[2020-02-20 05:21] LABS: Hematocrit 24.1 % (35.5-45.6); Hemoglobin 7.9 gm/dl (11.8-15.2); Mean Corpuscular HGB Conc 33 % (32-34); Mean Corpuscular Volume 91 fl (84-94); Platelet Count 137 K/mm3 (140-440); Red Blood Count 2.64 M/mm3 (3.65-5.03); Red Cell Distribution Width 16.3 % (13.2-15.2)
[2020-02-20 05:42] LABS: Calcium 7.3 mg/dL (8.4-10.2)
[2020-02-20] MEDS: FAMOTIDINE 20 MG/2 ML INJ IV SCH (09:25)
[2020-02-20] MEDS: CEFEPIME/NS 2 GM/100 ML 2 GM/100 ML BAG IV SCH (09:25)
[2020-02-20] MEDS: ASPIRIN 81 MG TAB CHEW PO SCH (09:25)
[2020-02-20] MEDS: DOCUSATE SODIUM 100 MG CAP PO SCH (09:26)
[2020-02-20] MEDS ORDERED: LACTATED RINGERS 1,000 ML IV ONE (10:58)
[2020-02-20] MEDS: HEPARIN/ 0.45% NACL DRIP 25,000 UNIT/500 ML BAG IV SCH (11:05)
[2020-02-20] MEDS: DOCUSATE SODIUM 100 MG/10 ML ORAL LIQD PO SCH ×2 (11:50→23:13)
--- NOTE | 2020-02-20 11:54 | Progress Note ---
Assessment and Plan 74 y/o male with known dementia, mumbles very few words at baseline if any, blank stares, admitted with altered mental status, respiratory failure, worsening renal failure and sepsis with shock 1. Pulm-extubated on nasal cannula. Ordered NT suction qshift. 2. CV-hypotensive, possibly from sepsis. getting echo now. Will give another bolus of fluids. HgB is down but not at level for transfusion. 3. Renal- Improving today. Appreciate renal help, and reviewed their recs. 4. Very guarded prognosis, sister is very reasonable, will attempt to reach out to her. Very similar presentation to last time and patient responded to therapy and was able to be discharged. Hopefully the same can happen. CCT 31 minutes. Subjective Date of service: 02/20/20 Principal diagnosis: Septic Shock Interval history: No acute events. Successful extubation on yesterday. Has some oral secretions and per nursing made him desat last night. Otherwise still on vasopressors. Objective Vital Signs - 12hr 02/20/20 02/20/20 02/20/20 00:00 00:01 00:15 Temperature Pulse Rate 123 H 122 H Respiratory 29 H 29 H 30 H Rate Blood Pressure 74/59 95/43 O2 Sat by Pulse 88 88 89 Oximetry 02/20/20 02/20/20 02/20/20 00:31 00:45 01:01 Temperature Pulse Rate 127 H 122 H 124 H Respiratory 29 H 30 H 30 H Rate Blood Pressure 95/43 177/143 83/41 O2 Sat by Pulse 88 Oximetry 02/20/20 02/20/20 02/20/20 01:15 01:31 01:45 Temperature Pulse Rate 124 H 122 H 124 H Respiratory 27 H 28 H 31 H Rate Blood Pressure 87/51 97/57 81/56 O2 Sat by Pulse 97 95 98 Oximetry 02/20/20 02/20/20 02/20/20 02:01 02:15 02:30 Temperature Pulse Rate 124 H 122 H 122 H Respiratory 28 H 24 26 H Rate Blood Pressure 93/45 81/56 103/61 O2 Sat by Pulse 96 98 95 Oximetry 02/20/20 02/20/20 02/20/20 02:45 03:00 03:15 Temperature Pulse Rate 123 H 122 H 120 H Respiratory 24 25 H 24 Rate Blood Pressure 105/59 112/66 100/58 O2 Sat by Pulse 96 99 100 Oximetry 02/20/20 02/20/20 02/20/20 03:26 03:30 03:45 Temperature 99.1 F Pulse Rate 119 H 116 H Respiratory 24 23 Rate Blood Pressure 109/49 96/54 O2 Sat by Pulse 99 100 Oximetry 02/20/20 02/20/20 02/20/20 04:00 04:01 04:15 Temperature Pulse Rate 115 H 116 H Respiratory 21 21 24 Rate Blood Pressure 85/58 85/58 O2 Sat by Pulse 97 97 96 Oximetry 02/20/20 02/20/20 02/20/20 04:21 04:30 04:45 Temperature Pulse Rate 116 H 114 H 121 H Respiratory 22 26 H Rate Blood Pressure 95/57 95/57 O2 Sat by Pulse 95 95 Oximetry 02/20/20 02/20/20 02/20/20 05:00 05:15 05:31 Temperature Pulse Rate 114 H 114 H 114 H Respiratory 21 22 23 Rate Blood Pressure 111/54 111/54 92/58 O2 Sat by Pulse 96 97 87 Oximetry 02/20/20 02/20/20 02/20/20 05:45 06:00 06:15 Temperature Pulse Rate 113 H 109 H 110 H Respiratory 22 20 21 Rate Blood Pressure 92/58 86/50 98/54 O2 Sat by Pulse 96 97 Oximetry 02/20/20 02/20/20 02/20/20 06:30 06:45 07:00 Temperature Pulse Rate 111 H 109 H 109 H Respiratory 24 21 21 Rate Blood Pressure 97/50 102/54 95/50 O2 Sat by Pulse 99 99 96 Oximetry 02/20/20 02/20/20 02/20/20 07:15 07:31 07:45 Temperature Pulse Rate 111 H 110 H 110 H Respiratory 18 20 21 Rate Blood Pressure 92/55 97/56 95/65 O2 Sat by Pulse 96 97 99 Oximetry 02/20/20 02/20/20 02/20/20 08:00 08:15 08:30 Temperature Pulse Rate 108 H 112 H 109 H Respiratory 19 22 20 Rate Blood Pressure 97/48 96/58 103/55 O2 Sat by Pulse 94 98 98 Oximetry 02/20/20 02/20/20 08:45 09:00 Temperature Pulse Rate 111 H 108 H Respiratory 22 20 Rate Blood Pressure 117/41 100/59 O2 Sat by Pulse 99 96 Oximetry Constitutional: appears uncomfortable, other (moving but not purposeful) ENT: other (orally intubated critically ill on vent) Neck: supple Effort: mildly labored Ascultation: Bilateral: clear, diminished breath sounds Percussion: Bilateral: not dull Cardiovascular: other (sinus tachycardia) Neurologic: unable to assess CBC and BMP: 02/20/20 04:44 02/20/20 04:44 ABG, PT/INR, D-dimer: ABG ABG pH 7.355 pH Units (7.350-7.450) 02/19/20 05:08 ABG pCO2 27.3 mm Hg 02/19/20 05:08 ABG pO2 168.2 mm Hg (80.0-90.0) H 02/19/20 05:08 ABG O2 Saturation 99.0 % (95.0-99.0) 02/19/20 05:08 PT/INR, D-dimer PT 18.6 Sec. (12.2-14.9) H 02/19/20 03:20 INR 1.53 (0.87-1.13) H 02/19/20 03:20 D-Dimer > 94276 ng/mlDDU (0-234) H 02/17/20 16:28 Abnormal lab findings: Abnormal Labs 02/17/20 02/17/20 02/17/20 16:28 16:28 16:28 WBC 23.5 H RBC 3.07 L Hgb 9.1 L Hct 28.4 L RDW 16.8 H Plt Count Lymph % (Auto) [place] # Seg Neutrophils % Seg Neuts % (Manual) 84.0 H Lymphocytes % (Manual) 8.0 L Monocytes % (Manual) 8.0 H Seg Neutrophils # Seg Neutrophils # Man 19.7 H Monocytes # (Manual) 1.9 H PT 15.3 H INR 1.19 H D-Dimer Heparin Anti-Xa Level ABG pH ABG pO2 ABG HCO3 ABG O2 Saturation ABG Base Excess ABG Hemoglobin Sodium 136 L Potassium 5.4 H Chloride Carbon Dioxide 15 L BUN 91 H Creatinine 3.7 H D Glucose 120 H POC Glucose Lactic Acid Calcium 7.9 L Ferritin AST 65 H ALT 81 H Lactate Dehydrogenase Total Creatine Kinase CK-MB (CK-2) Troponin T C-Reactive Protein NT-Pro-B Natriuret Pep Total Protein 5.4 L Albumin 2.3 L Triglycerides HDL Cholesterol Urine WBC (Auto) Urine Creatinine Urine Chloride Urine Total Protein 02/17/20 02/17/20 02/17/20 16:28 16:28 16:28 WBC RBC Hgb Hct RDW Plt Count Lymph % (Auto) [place] # Seg Neutrophils % Seg Neuts % (Manual) Lymphocytes % (Manual) Monocytes % (Manual) Seg Neutrophils # Seg Neutrophils # Man Monocytes # (Manual) PT INR D-Dimer > 57096 H Heparin Anti-Xa Level ABG pH ABG pO2 ABG HCO3 ABG O2 Saturation ABG Base Excess ABG Hemoglobin Sodium Potassium Chloride Carbon Dioxide BUN Creatinine Glucose POC Glucose Lactic Acid 2.70 H* Calcium Ferritin AST ALT Lactate Dehydrogenase Total Creatine Kinase CK-MB (CK-2) Troponin T 0.748 H* C-Reactive Protein NT-Pro-B Natriuret Pep 1980 H Total Protein Albumin Triglycerides HDL Cholesterol Urine WBC (Auto) Urine Creatinine Urine Chloride Urine Total Protein 02/17/20 02/17/20 02/17/20 16:28 16:28 18:35 WBC RBC Hgb Hct RDW Plt Count Lymph % (Auto) [place] # Seg Neutrophils % Seg Neuts % (Manual) Lymphocytes % (Manual) Monocytes % (Manual) Seg Neutrophils # Seg Neutrophils # Man Monocytes # (Manual) PT INR D-Dimer Heparin Anti-Xa Level ABG pH 7.303 L ABG pO2 327.3 H ABG HCO3 12.5 L ABG O2 Saturation 99.5 H ABG Base Excess -12.3 L ABG Hemoglobin 11.2 L Sodium Potassium Chloride Carbon Dioxide BUN Creatinine Glucose POC Glucose Lactic Acid Calcium Ferritin 1191.0 H AST ALT Lactate Dehydrogenase 381 H Total Creatine Kinase CK-MB (CK-2) Troponin T C-Reactive Protein 18.20 H NT-Pro-B Natriuret Pep Total Protein Albumin Triglycerides HDL Cholesterol Urine WBC (Auto) Urine Creatinine Urine Chloride Urine Total Protein 02/17/20 02/18/20 02/18/20 Unknown 05:20 10:10 WBC RBC Hgb Hct RDW Plt Count Lymph % (Auto) [place] # Seg Neutrophils % Seg Neuts % (Manual) Lymphocytes % (Manual) Monocytes % (Manual) Seg Neutrophils # Seg Neutrophils # Man Monocytes # (Manual) PT INR D-Dimer Heparin Anti-Xa Level ABG pH 7.217 L ABG pO2 165.7 H ABG HCO3 10.5 L ABG O2 Saturation ABG Base Excess -15.7 L ABG Hemoglobin 10.3 L Sodium Potassium Chloride Carbon Dioxide BUN Creatinine Glucose POC Glucose Lactic Acid Calcium Ferritin AST ALT Lactate Dehydrogenase Total Creatine Kinase 5660 H CK-MB (CK-2) 78.0 H Troponin T 1.030 H* D C-Reactive Protein NT-Pro-B Natriuret Pep Total Protein Albumin Triglycerides 164 H HDL Cholesterol 38 L Urine WBC (Auto) 17.0 H Urine Creatinine Urine Chloride Urine Total Protein 02/18/20 02/18/20 02/18/20 12:14 17:32 17:40 WBC RBC Hgb Hct RDW Plt Count Lymph % (Auto) [place] # Seg Neutrophils % Seg Neuts % (Manual) Lymphocytes % (Manual) Monocytes % (Manual) Seg Neutrophils # Seg Neutrophils # Man Monocytes # (Manual) PT INR D-Dimer Heparin Anti-Xa Level ABG pH ABG pO2 ABG HCO3 ABG O2 Saturation ABG Base Excess ABG Hemoglobin Sodium Potassium Chloride Carbon Dioxide BUN Creatinine Glucose POC Glucose 193 H 191 H Lactic Acid Calcium Ferritin AST ALT Lactate Dehydrogenase Total Creatine Kinase CK-MB (CK-2) Troponin T C-Reactive Protein NT-Pro-B Natriuret Pep Total Protein Albumin Triglycerides HDL Cholesterol Urine WBC (Auto) Urine Creatinine 35.2 H Urine Chloride 81.0 L Urine Total Protein 38 H 02/18/20 02/19/20 02/19/20 17:40 00:04 01:50 WBC RBC Hgb Hct RDW Plt Count Lymph % (Auto) [place] # Seg Neutrophils % Seg Neuts % (Manual) Lymphocytes % (Manual) Monocytes % (Manual) Seg Neutrophils # Seg Neutrophils # Man Monocytes # (Manual) PT INR D-Dimer Heparin Anti-Xa Level 0.18 L ABG pH ABG pO2 ABG HCO3 ABG O2 Saturation ABG Base Excess ABG Hemoglobin Sodium Potassium Chloride 111.4 H Carbon Dioxide 11 L BUN 77 H Creatinine 2.8 H Glucose 168 H POC Glucose 145 H Lactic Acid Calcium 7.2 L Ferritin AST ALT Lactate Dehydrogenase Total Creatine Kinase CK-MB (CK-2) Troponin T C-Reactive Protein NT-Pro-B Natriuret Pep Total Protein Albumin Triglycerides HDL Cholesterol Urine WBC (Auto) Urine Creatinine Urine Chloride Urine Total Protein 02/19/20 02/19/20 02/19/20 03:20 04:00 05:08 WBC 17.6 H RBC 2.76 L Hgb 8.1 L Hct 25.0 L RDW 16.6 H Plt Count Lymph % (Auto) 10.5 L [place] # 1.2 H Seg Neutrophils % 82.1 H Seg Neuts % (Manual) Lymphocytes % (Manual) Monocytes % (Manual) Seg Neutrophils # 14.5 H Seg Neutrophils # Man Monocytes # (Manual) PT 18.6 H INR 1.53 H D-Dimer Heparin Anti-Xa Level ABG pH ABG pO2 168.2 H ABG HCO3 14.9 L ABG O2 Saturation ABG Base Excess -9.5 L ABG Hemoglobin 8.3 L Sodium Potassium Chloride Carbon Dioxide BUN Creatinine Glucose POC Glucose Lactic Acid Calcium Ferritin AST ALT Lactate Dehydrogenase Total Creatine Kinase CK-MB (CK-2) Troponin T C-Reactive Protein NT-Pro-B Natriuret Pep Total Protein Albumin Triglycerides HDL Cholesterol Urine WBC (Auto) Urine Creatinine Urine Chloride Urine Total Protein 02/19/20 02/19/20 02/19/20 05:38 05:50 09:10 WBC RBC Hgb Hct RDW Plt Count Lymph % (Auto) [place] # Seg Neutrophils % Seg Neuts % (Manual) Lymphocytes % (Manual) Monocytes % (Manual) Seg Neutrophils # Seg Neutrophils # Man Monocytes # (Manual) PT INR D-Dimer Heparin Anti-Xa Level ABG pH ABG pO2 ABG HCO3 ABG O2 Saturation ABG Base Excess ABG Hemoglobin Sodium Potassium Chloride 111.6 H 111.9 H Carbon Dioxide 14 L 15 L BUN 69 H 68 H Creatinine 2.6 H 2.5 H Glucose 151 H 154 H POC Glucose 143 H Lactic Acid Calcium 7.4 L 7.2 L Ferritin AST ALT Lactate Dehydrogenase Total Creatine Kinase 3552 H CK-MB (CK-2) Troponin T C-Reactive Protein NT-Pro-B Natriuret Pep Total Protein Albumin Triglycerides HDL Cholesterol Urine WBC (Auto) Urine Creatinine Urine Chloride Urine Total Protein 02/19/20 02/19/20 02/19/20 11:41 12:00 17:46 WBC RBC Hgb Hct RDW Plt Count Lymph % (Auto) [place] # Seg Neutrophils % Seg Neuts % (Manual) Lymphocytes % (Manual) Monocytes % (Manual) Seg Neutrophils # Seg Neutrophils # Man Monocytes # (Manual) PT INR D-Dimer Heparin Anti-Xa Level 0.11 L ABG pH ABG pO2 ABG HCO3 ABG O2 Saturation ABG Base Excess ABG Hemoglobin Sodium Potassium Chloride Carbon Dioxide BUN Creatinine Glucose POC Glucose 160 H 133 H Lactic Acid Calcium Ferritin AST ALT Lactate Dehydrogenase Total Creatine Kinase CK-MB (CK-2) Troponin T C-Reactive Protein NT-Pro-B Natriuret Pep Total Protein Albumin Triglycerides HDL Cholesterol Urine WBC (Auto) Urine Creatinine Urine Chloride Urine Total Protein 02/19/20 02/19/20 02/20/20 20:02 23:50 04:44 WBC RBC 2.64 L Hgb 7.9 L Hct 24.1 L RDW 16.3 H Plt Count 137 L Lymph % (Auto) [place] # Seg Neutrophils % Seg Neuts % (Manual) Lymphocytes % (Manual) Monocytes % (Manual) Seg Neutrophils # Seg Neutrophils # Man Monocytes # (Manual) PT INR D-Dimer Heparin Anti-Xa Level 0.12 L ABG pH ABG pO2 ABG HCO3 ABG O2 Saturation ABG Base Excess ABG Hemoglobin Sodium Potassium Chloride Carbon Dioxide BUN Creatinine Glucose POC Glucose 128 H Lactic Acid Calcium Ferritin AST ALT Lactate Dehydrogenase Total Creatine Kinase CK-MB (CK-2) Troponin T C-Reactive Protein NT-Pro-B Natriuret Pep Total Protein Albumin Triglycerides HDL Cholesterol Urine WBC (Auto) Urine Creatinine Urine Chloride Urine Total Protein 02/20/20 02/20/20 02/20/20 04:44 04:44 10:00 WBC RBC Hgb Hct RDW Plt Count Lymph % (Auto) [place] # Seg Neutrophils % Seg Neuts % (Manual) Lymphocytes % (Manual) Monocytes % (Manual) Seg Neutrophils # Seg Neutrophils # Man Monocytes # (Manual) PT INR D-Dimer Heparin Anti-Xa Level 0.15 L < 0.10 L ABG pH ABG pO2 ABG HCO3 ABG O2 Saturation ABG Base Excess ABG Hemoglobin Sodium Potassium Chloride 110.4 H Carbon Dioxide 19 L BUN 61 H Creatinine 2.4 H Glucose POC Glucose Lactic Acid Calcium 7.3 L Ferritin AST ALT Lactate Dehydrogenase Total Creatine Kinase 2238 H CK-MB (CK-2) Troponin T C-Reactive Protein NT-Pro-B Natriuret Pep Total Protein Albumin Triglycerides HDL Cholesterol Urine WBC (Auto) Urine Creatinine Urine Chloride Urine Total Protein
--- NOTE | 2020-02-20 12:19 | Progress Note ---
Assessment and Plan Assessment and plan: --COVID-19 test negative x2 during last admission Test negative during this admission 02/18/2020 However patient has very high levels of inflammatory markers ID consulted, trend the markers --Ac. resp failure with hypoxia/ extubated 02/19/2020 Current Visit: No Status: Acute Plan to address problem: on nasal cannula oxygen, saturating well Patient is confused, hypotensive on Levophed --Septic shock/secondary to sepsis due to pneumonia Current Visit: Yes Status: Acute Plan to address problem: Continue vasopressors, treat underlying pneumonia --Acute on chronic kidney disease Current Visit: Yes Status: Acute Plan to address problem: Secondary to ATN, gentle hydration Avoid nephrotoxins, monitor renal function Nephrology following --Rhabdomyolysis; Current Visit: Yes Status: Acute Plan to address problem: Continue IV fluids, input output monitoring, CK levels trending down CK 5000-2000s We will monitor renal function --Elevated D-dimers Current Visit: Yes Status: Acute Plan to address problem: More than 10,000, patient is already on heparin drip V/Q scan low probability for PE Check lower extremity venous Doppler --Sepsis; secondary to right-sided pneumonia/HCAP Current Visit: Yes Status: Acute Plan to address problem: Continue Vanco and cefepime , follow cultures, supportive care -- DVT prophylaxis Current Visit: No Status: Acute Plan to address problem: Patient currently on anticoagulation. Monitor closely and adjust management as needed Critical care time 32 minutes The high probability of a clinically significant, sudden or life threatening deterioration of the [Respiratory, renal, ID] system(s) required my full and direct attention, intervention and personal management.The aggregate critical care time was [32] minutes. This time is in addition to time spent performing , reported procedures but includes the following: [x] Data Review and interpretation [x] Patient assessment and monitoring of vital signs [x] Documentation [x] Medication orders and management We will closely monitor the patient and adjust the management as needed Plan of care reviewed with the patient's nurse History Interval history: I have seen and examined the patient at the bedside this morning in ICU Patient was extubated yesterday, patient is alert and awake confused, on vasopressors, in mild distress Vital signs noted Hospitalist Physical - Constitutional Vitals: Temp Pulse Resp BP Pulse Ox 99.1 F 108 H 20 100/59 96 02/20/20 03:26 02/20/20 09:00 02/20/20 09:00 02/20/20 09:00 02/20/20 09:00 General appearance: Present: no acute distress, well-nourished, other (Intubated on vent) - EENT Eyes: Present: PERRL, EOM intact - Neck Neck: Present: supple, normal ROM - Respiratory Respiratory effort: normal Respiratory: bilateral: diminished, rhonchi, negative: rales, wheezing - Cardiovascular Rhythm: regular Heart Sounds: Present: S1 & S2 - Extremities Extremities: no ischemia, No edema - Abdominal General gastrointestinal: soft, non-tender, non-distended, normal bowel sounds - Integumentary Integumentary: Present: clear, warm - Psychiatric Psychiatric: other (Confused) - Neurologic Neurologic: moves all extremities HEART Score - HEART Score Troponin: Troponin T 1.030 ng/mL (0.00-0.029) H* D 02/18/20 10:10 Results - Labs CBC & Chem 7: 02/20/20 04:44 02/20/20 04:44 Labs: Laboratory Last Values WBC 8.1 K/mm3 (4.5-11.0) 02/20/20 04:44 RBC 2.64 M/mm3 (3.65-5.03) L 02/20/20 04:44 Hgb 7.9 gm/dl (11.8-15.2) L 02/20/20 04:44 Hct 24.1 % (35.5-45.6) L 02/20/20 04:44 MCV 91 fl (84-94) 02/20/20 04:44 MCH 30 pg (28-32) 02/20/20 04:44 MCHC 33 % (32-34) 02/20/20 04:44 RDW 16.3 % (13.2-15.2) H 02/20/20 04:44 Plt Count 137 K/mm3 (140-440) L 02/20/20 04:44 Lymph % (Auto) 10.5 % (13.4-35.0) L 02/19/20 04:00 [place] % (Auto) 6.8 % (0.0-7.3) 02/19/20 04:00 Eos % (Auto) 0.4 % (0.0-4.3) 02/19/20 04:00 Baso % (Auto) 0.2 % (0.0-1.8) 02/19/20 04:00 Lymph # 1.8 K/mm3 (1.2-5.4) 02/19/20 04:00 [place] # 1.2 K/mm3 (0.0-0.8) H 02/19/20 04:00 Eos # 0.1 K/mm3 (0.0-0.4) 02/19/20 04:00 Baso # 0.0 K/mm3 (0.0-0.1) 02/19/20 04:00 Add Manual Diff Complete 02/17/20 16:28 Total Counted 100 02/17/20 16:28 Seg Neutrophils % 82.1 % (40.0-70.0) H 02/19/20 04:00 Seg Neuts % (Manual) 84.0 % (40.0-70.0) H 02/17/20 16:28 Band Neutrophils % 0 % 02/17/20 16:28 Lymphocytes % (Manual) 8.0 % (13.4-35.0) L 02/17/20 16:28 Reactive Lymphs % (Man) 0 % 02/17/20 16:28 Monocytes % (Manual) 8.0 % (0.0-7.3) H 02/17/20 16:28 Eosinophils % (Manual) 0 % (0.0-4.3) 02/17/20 16:28 Basophils % (Manual) 0 % (0.0-1.8) 02/17/20 16:28 Metamyelocytes % 0 % 02/17/20 16:28 Myelocytes % 0 % 02/17/20 16:28 Promyelocytes % 0 % 02/17/20 16:28 Blast Cells % 0 % 02/17/20 16:28 Nucleated RBC % Not Reportable 02/17/20 16:28 Seg Neutrophils # 14.5 K/mm3 (1.8-7.7) H 02/19/20 04:00 Seg Neutrophils # Man 19.7 K/mm3 (1.8-7.7) H 02/17/20 16:28 Band Neutrophils # 0.0 K/mm3 02/17/20 16:28 Lymphocytes # (Manual) 1.9 K/mm3 (1.2-5.4) 02/17/20 16:28 Abs React Lymphs (Man) 0.0 K/mm3 02/17/20 16:28 Monocytes # (Manual) 1.9 K/mm3 (0.0-0.8) H 02/17/20 16:28 Eosinophils # (Manual) 0.0 K/mm3 (0.0-0.4) 02/17/20 16:28 Basophils # (Manual) 0.0 K/mm3 (0.0-0.1) 02/17/20 16:28 Metamyelocytes # 0.0 K/mm3 02/17/20 16:28 Myelocytes # 0.0 K/mm3 02/17/20 16:28 Promyelocytes # 0.0 K/mm3 02/17/20 16:28 Blast Cells # 0.0 K/mm3 02/17/20 16:28 WBC Morphology Not Reportable 02/17/20 16:28 Hypersegmented Neuts Not Reportable 02/17/20 16:28 Hyposegmented Neuts Not Reportable 02/17/20 16:28 Hypogranular Neuts Not Reportable 02/17/20 16:28 Smudge Cells Not Reportable 02/17/20 16:28 Toxic Granulation Not Reportable 02/17/20 16:28 Toxic Vacuolation Not Reportable 02/17/20 16:28 Dohle Bodies Not Reportable 02/17/20 16:28 Pelger-Huet Anomaly Not Reportable 02/17/20 16:28 Krys Rods Not Reportable 02/17/20 16:28 Platelet Estimate Not Reportable 02/17/20 16:28 Clumped Platelets Not Reportable 02/17/20 16:28 Plt Clumps, EDTA Not Reportable 02/17/20 16:28 Large Platelets Not Reportable 02/17/20 16:28 Giant Platelets Not Reportable 02/17/20 16:28 Platelet Satelliting Not Reportable 02/17/20 16:28 Plt Morphology Comment Not Reportable 02/17/20 16:28 RBC Morphology Normal 02/17/20 16:28 Dimorphic RBCs Not Reportable 02/17/20 16:28 Polychromasia Not Reportable 02/17/20 16:28 Hypochromasia Not Reportable 02/17/20 16:28 Poikilocytosis Not Reportable 02/17/20 16:28 Anisocytosis Not Reportable 02/17/20 16:28 Microcytosis Not Reportable 02/17/20 16:28 Macrocytosis Not Reportable 02/17/20 16:28 Spherocytes Not Reportable 02/17/20 16:28 Pappenheimer Bodies Not Reportable 02/17/20 16:28 Sickle Cells Not Reportable 02/17/20 16:28 Target Cells Not Reportable 02/17/20 16:28 Tear Drop Cells Not Reportable 02/17/20 16:28 Ovalocytes Not Reportable 02/17/20 16:28 Helmet Cells Not Reportable 02/17/20 16:28 Lazo-Curran Bodies Not Reportable 02/17/20 16:28 [place] Rings Not Reportable 02/17/20 16:28 Christo Cells Not Reportable 02/17/20 16:28 Bite Cells Not Reportable 02/17/20 16:28 Crenated Cell Not Reportable 02/17/20 16:28 Elliptocytes Not Reportable 02/17/20 16:28 Acanthocytes (Spur) Not Reportable 02/17/20 16:28 Rouleaux Not Reportable 02/17/20 16:28 Hemoglobin C Crystals Not Reportable 02/17/20 16:28 Schistocytes Not Reportable 02/17/20 16:28 Malaria parasites Not Reportable 02/17/20 16:28 Keron Bodies Not Reportable 02/17/20 16:28 Hem Pathologist Commnt No 02/17/20 16:28 PT 18.6 Sec. (12.2-14.9) H 02/19/20 03:20 INR 1.53 (0.87-1.13) H 02/19/20 03:20 APTT 26.8 Sec. (24.2-36.6) 02/17/20 16:28 D-Dimer > 34830 ng/mlDDU (0-234) H 02/17/20 16:28 Heparin Anti-Xa Level < 0.10 U.I./ml (0.3-0.7) L 02/20/20 10:00 ABG pH 7.355 pH Units (7.350-7.450) 02/19/20 05:08 ABG pCO2 27.3 mm Hg 02/19/20 05:08 ABG pO2 168.2 mm Hg (80.0-90.0) H 02/19/20 05:08 ABG HCO3 14.9 mmol/L (20.0-26.0) L 02/19/20 05:08 ABG O2 Saturation 99.0 % (95.0-99.0) 02/19/20 05:08 ABG O2 Content 11.7 (0.0-44) 02/19/20 05:08 ABG Base Excess -9.5 mmol/L (-2.0-3.0) L 02/19/20 05:08 ABG Hemoglobin 8.3 gm/dl (14.0-18.0) L 02/19/20 05:08 ABG Carboxyhemoglobin 1.2 % (0.0-5.0) 02/19/20 05:08 ABG Methemoglobin 0.7 % (0.0-1.5) 02/19/20 05:08 Oxyhemoglobin 97.2 % (95.0-99.0) 02/19/20 05:08 FiO2 40 % 02/19/20 05:08 Sodium 143 mmol/L (137-145) 02/20/20 04:44 Potassium 4.4 mmol/L (3.6-5.0) 02/20/20 04:44 Chloride 110.4 mmol/L (98-107) H 02/20/20 04:44 Carbon Dioxide 19 mmol/L (22-30) L 02/20/20 04:44 Anion Gap 18 mmol/L 02/20/20 04:44 BUN 61 mg/dL (9-20) H 02/20/20 04:44 Creatinine 2.4 mg/dL (0.8-1.3) H 02/20/20 04:44 Estimated GFR 32 ml/min 02/20/20 04:44 BUN/Creatinine Ratio 25 % 02/20/20 04:44 Glucose 93 mg/dL (75-100) 02/20/20 04:44 POC Glucose 98 (70-105) 02/20/20 05:25 Lactic Acid 1.90 mmol/L (0.7-2.0) 02/17/20 22:56 Calcium 7.3 mg/dL (8.4-10.2) L 02/20/20 04:44 Ferritin 1191.0 ng/mL (30.0-300.0) H 02/17/20 16:28 Total Bilirubin 0.50 mg/dL (0.1-1.2) 02/17/20 16:28 AST 65 units/L (5-40) H 02/17/20 16:28 ALT 81 units/L (7-56) H 02/17/20 16:28 Alkaline Phosphatase 101 units/L (35-129) 02/17/20 16:28 Lactate Dehydrogenase 381 units/L (91-180) H 02/17/20 16:28 Total Creatine Kinase 2238 units/L (55-170) H 02/20/20 04:44 CK-MB (CK-2) 78.0 ng/mL (0.0-4.0) H 02/18/20 10:10 CK-MB (CK-2) Rel Index 1.3 (0-4) 02/18/20 10:10 Troponin T 1.030 ng/mL (0.00-0.029) H* D 02/18/20 10:10 C-Reactive Protein 18.20 mg/dL (0.00-1.30) H 02/17/20 16:28 NT-Pro-B Natriuret Pep 1980 pg/mL (0-900) H 02/17/20 16:28 Total Protein 5.4 g/dL (6.3-8.2) L 02/17/20 16:28 Albumin 2.3 g/dL (3.9-5) L 02/17/20 16:28 Albumin/Globulin Ratio 0.7 % 02/17/20 16:28 Triglycerides 164 mg/dL (2-149) H 02/18/20 10:10 Cholesterol 133 mg/dL (50-199) 02/18/20 10:10 LDL Cholesterol Direct 71 mg/dL (50-130) 02/18/20 10:10 HDL Cholesterol 38 mg/dL (40-59) L 02/18/20 10:10 Cholesterol/HDL Ratio 3.50 % 02/18/20 10:10 Procalcitonin 6.74 ng/mL (<0.15) 02/17/20 16:28 TSH 3.490 mlU/mL (0.270-4.200) 02/17/20 16:28 Urine Color Yellow (Yellow) 02/17/20 Unknown Urine Turbidity Slightly-cloudy (Clear) 02/17/20 Unknown Urine pH 5.0 (5.0-7.0) 02/17/20 Unknown Ur Specific [place] 1.010 (1.003-1.030) 02/17/20 Unknown Urine Protein 30 mg/dl mg/dL (Negative) 02/17/20 Unknown Urine Glucose (UA) Neg mg/dL (Negative) 02/17/20 Unknown Urine Ketones Neg mg/dL (Negative) 02/17/20 Unknown Urine Blood Mod (Negative) 02/17/20 Unknown Urine Nitrite Neg (Negative) 02/17/20 Unknown Urine Bilirubin Neg (Negative) 02/17/20 Unknown Urine Urobilinogen < 2.0 mg/dL (<2.0) 02/17/20 Unknown Ur Leukocyte Esterase Mod (Negative) 02/17/20 Unknown Urine WBC (Auto) 17.0 /HPF (0.0-6.0) H 02/17/20 Unknown Urine RBC (Auto) 17.0 /HPF (0.0-6.0) 02/17/20 Unknown U Epithel Cells (Auto) 4.0 /HPF (0-13.0) 02/17/20 Unknown Urine Bacteria (Auto) 1+ /HPF (Negative) 02/17/20 Unknown Urine Yeast (Budding) 2+ /HPF 02/17/20 Unknown Urine Eosinophils None seen (None Seen) 02/18/20 17:40 Urine Creatinine 35.2 mg/dL (0.1-20.0) H 02/18/20 17:40 Urine Microalbumin 5.9 mg/dL (0.1-34.0) 02/18/20 17:40 Microalb/Creat Ratio 167.6 ug/mg 02/18/20 17:40 Urine Sodium 104 mmol/L 02/18/20 17:40 Urine Chloride 81.0 mmolL (110-250) L 02/18/20 17:40 Urine Total Protein 38 mg/dL (5-11.8) H 02/18/20 17:40 Nasal Screen MRSA (PCR) Positive (Negative) 02/18/20 17:40 Random Vancomycin 14.6 ug/mL (0-40.0) 02/19/20 09:10 Coronavirus (PCR) Negative (Negative) 08/29/20 Unknown Microbiology: Microbiology 02/17/20 Unknown Urine,Clean Catch Urine Culture - Final 02/17/20 16:28 Peripheral/Venous Blood Culture - Preliminary NO GROWTH AFTER 48 HOURS 02/17/20 16:28 Peripheral/Venous Blood Culture - Preliminary NO GROWTH AFTER 48 HOURS 02/17/20 18:25 Sputum - Endotracheal Wash Sputum Culture - Final Yin/IV: Voiding Method Indwelling Catheter IV Catheter Type [Right Triple Lumen Cath Femoral] IV Catheter Type [Right INT / Saline Lock Antecubital] Active Medications - Current Medications Current Medications: Generic Name Dose Route Start Last Admin Trade Name Freq PRN Reason Stop Dose Admin Aspirin 81 mg 02/18/20 10:00 02/20/20 09:25 Baby Aspirin PO 81 mg DAILY LOS Administration Atorvastatin Calcium 20 mg 02/18/20 22:00 02/19/20 21:53 Lipitor PO 20 mg QHS LOS Administration Dextrose 50 ml 02/18/20 12:55 D50w (25gm) Syringe IV Q30MIN PRN Hypoglycemia Protocol Docusate Sodium 100 mg 02/20/20 12:00 02/20/20 11:50 Colace PO 100 mg BID LOS Administration Famotidine 20 mg 02/18/20 10:00 02/20/20 09:25 Pepcid IV 20 mg DAILY LOS Administration Hydrophilic Ointment 1 applic 02/17/20 15:12 Vaseline Lip Therapy TP Q2HR PRN Dry Lips Norepinephrine 4 mg in 250 mls @ 7.5 mls/hr 02/17/20 20:00 02/20/20 11:50 Levophed Drip 4 Mg/Ns 250 Ml IV 10 mcg/min TITR LOS 37.5 mls/hr Administration Protocol 2 MCG/MIN Heparin Sodium/Sodium Chloride 25,000 unit in 500 mls @ 20 mls/hr 02/17/20 23:00 02/20/20 11:05 Heparin/ 0.45% Nacl-25,000 Unit/500 Ml IV 1,050 units/hr TITRATE LOS 21 mls/hr Administration Protocol 1,000 UNITS/HR Sodium Chloride 1,000 mls @ 75 mls/hr 02/18/20 02:45 Nacl 0.9% 1000 Ml IV DIRECT LOS Cefepime HCl 2 gm in 100 mls @ 200 mls/hr 02/18/20 09:00 02/20/20 09:25 Cefepime/Ns 2 Gm/100 Ml IV 200 mls/hr Q24HR LOS Administration Protocol Vasopressin 20 unit/ Sodium 101 mls @ 9.09 mls/hr 02/18/20 10:00 02/20/20 05:03 Chloride IV 0.03 units/min TITR LOS 9.09 mls/hr Administration Protocol 0.03 UNITS/MIN Sodium Bicarbonate 150 meq/ 1,150 mls @ 75 mls/hr 02/18/20 13:00 02/19/20 20:15 Dextrose IV 75 mls/hr DIRECT LOS Administration Vancomycin HCl 1,250 mg/ 275 mls @ 166.667 mls/hr 02/20/20 14:00 Sodium Chloride IV 02/20/20 15:38 ONCE ONE Insulin Human Regular 0 unit 02/18/20 13:00 02/20/20 05:53 Humulin R SUB-Q Not Given Q6HR LOS Protocol Magnesium Hydroxide 30 ml 02/18/20 02:31 Milk Of Magnesia PO Q4H PRN Constipation Multi-Ingred Cream/Lotion/Oil/Oint 1 applic 02/17/20 15:12 02/19/20 04:25 Artificial Tears Ophth Oint OU 1 applic Q4HR PRN Administration Dry Eye(s) Sodium Chloride 10 ml 02/18/20 10:00 02/20/20 09:25 Sodium Chloride Flush Syringe 10 Ml IV 10 ml BID LOS Administration Sodium Chloride 10 ml 02/18/20 02:31 Sodium Chloride Flush Syringe 10 Ml IV PRN PRN LINE FLUSH Nutrition/Malnutrition Assess - Dietary Evaluation Nutrition/Malnutrition Findings: Nutrition Notes Start: 02/18/20 1 0:34 Freq: Status: Active Protocol: Document 02/18/20 10:34 LP (Rec: 02/18/20 10:40 LP [id number]) Nutrition Notes Need for Assessment generated from: MD Order Initial or Follow up Assessment Current Diagnosis CKD(stage I-IV),Diabetes, Sepsis,Hypertension,Stroke Other Pertinent Diagnosis Dementia, UTI Current Diet Cardiac Labs/Tests 02/17/20 Na 136 K 5.4 BUN 91 Cr 3.7 BG 120 Pertinent Medications Levophed Height 6 ft Weight 86.1 kg Lindsay Body Weight (kg) 80.90 BMI 25.7 Weight Status Overweight Subjective/Other Information Consult for diet education and evaluate nutrition intakes. Pt on vent and not appropriate for diet education. Burn Absent Trauma Absent GI Symptoms None Current % PO Negligible Minimum of two criteria No physical signs of malnutrition #1 Nutrition Diagnosis Inadequate oral intake Etiology ARF As Evidenced by Signs and Symptoms Pt on vent and unable to consume PO Is patient on ventilator? Yes Is Patient Ambulatory and/or Out of Bed No REE-([facility]-confined to bed) 5033.968 Calculation Used for Recommendations [facility] Additional Notes Protein needs are 103-172g (1. 2-2g/kg) Fluid needs are 1ml/kcal Nutrition Intervention Change Diet Order: TF consult or extubation Nutrition Support: once consulted Nepro at 45ml/ hr Flush with 200ml q4h Kcal 1,944 Protein (gm) 87 Fluid (mL) 785 Goal #1 TF consult or extubation Anticipated Discharge Needs: Unable to determine at this time Follow-Up By: 02/21/20 Additional Comments Follow for TF consult or extubation
[2020-02-20] MEDS ORDERED: VANCOMYCIN 1,250 MG in SODIUM CHLORIDE 0.9% 250ML 250 ML IV ONE (14:00)
--- NOTE | 2020-02-20 14:04 | Progress Note ---
Assessment and Plan Assessment: Acute hypoxic respiratory failure Septic Shock 2/2 PNA Bilateral PNA Acute Kidney Injury 2/2 ischemic ATN from septic shock, Rhabdo, on underlying CKD, r/o obstruction Elevated D-Dimers Plan: - Renal function reviewed, SCr level was 2.4 today, yesterday's SCr level was 2.6 - Review of labs in 2015 in [facility] did show SCr level between 1.6-1.8, most recent SCr level in [facility] prior to this admission was 2.2 on 02/14/20 - On D5W +150 mEq sodium bicarbonate infusion at 75 ml/hr - CK level was elevated so could have AMMY from contribution from Rhabdo as well - On vasopressin and levaphed drips - Trend daily CK levels - CK level 2238 today, trending downward - Renal ultrasound ordered today - Urine eosinophils negative, calculated protein to cr ratio 1 g, monitor - Pt on isolation for concern of COVID-19, ID onboard - Yin Catheter: Yes - Renally dose medications - Avoid nephrotoxins - Continue to monitor Subjective Date of service: 02/20/20 Principal diagnosis: Septic Shock Interval history: Patient with recent + COVID-19, pt not examined to limit direct contact/r esources, reviewed medical chart, labs, and notes. Objective - Vital Signs Vital signs: Vital Signs - 12hr 02/20/20 02/20/20 02/20/20 02:15 02:30 02:45 Temperature Pulse Rate 122 H 122 H 123 H Respiratory 24 26 H 24 Rate Blood Pressure 81/56 103/61 105/59 O2 Sat by Pulse 98 95 96 Oximetry 02/20/20 02/20/20 02/20/20 03:00 03:15 03:26 Temperature 99.1 F Pulse Rate 122 H 120 H Respiratory 25 H 24 Rate Blood Pressure 112/66 100/58 O2 Sat by Pulse 99 100 Oximetry 02/20/20 02/20/20 02/20/20 03:30 03:45 04:00 Temperature Pulse Rate 119 H 116 H Respiratory 24 23 21 Rate Blood Pressure 109/49 96/54 O2 Sat by Pulse 99 100 97 Oximetry 02/20/20 02/20/20 02/20/20 04:01 04:15 04:21 Temperature Pulse Rate 115 H 116 H 116 H Respiratory 21 24 Rate Blood Pressure 85/58 85/58 O2 Sat by Pulse 97 96 Oximetry 02/20/20 02/20/20 02/20/20 04:30 04:45 05:00 Temperature Pulse Rate 114 H 121 H 114 H Respiratory 22 26 H 21 Rate Blood Pressure 95/57 95/57 111/54 O2 Sat by Pulse 95 95 96 Oximetry 02/20/20 02/20/20 02/20/20 05:15 05:31 05:45 Temperature Pulse Rate 114 H 114 H 113 H Respiratory 22 23 22 Rate Blood Pressure 111/54 92/58 92/58 O2 Sat by Pulse 97 87 96 Oximetry 02/20/20 02/20/20 02/20/20 06:00 06:15 06:30 Temperature Pulse Rate 109 H 110 H 111 H Respiratory 20 21 24 Rate Blood Pressure 86/50 98/54 97/50 O2 Sat by Pulse 97 99 Oximetry 02/20/20 02/20/20 02/20/20 06:45 07:00 07:15 Temperature Pulse Rate 109 H 109 H 111 H Respiratory 21 21 18 Rate Blood Pressure 102/54 95/50 92/55 O2 Sat by Pulse 99 96 96 Oximetry 02/20/20 02/20/20 02/20/20 07:31 07:45 08:00 Temperature 97.9 F Pulse Rate 110 H 110 H 108 H Respiratory 20 21 19 Rate Blood Pressure 97/56 95/65 97/48 O2 Sat by Pulse 97 99 94 Oximetry 02/20/20 02/20/20 02/20/20 08:15 08:30 08:45 Temperature Pulse Rate 112 H 109 H 111 H Respiratory 22 20 22 Rate Blood Pressure 96/58 103/55 117/41 O2 Sat by Pulse 98 98 99 Oximetry 02/20/20 02/20/20 02/20/20 09:00 09:15 09:31 Temperature Pulse Rate 108 H 90 103 H Respiratory 20 18 20 Rate Blood Pressure 100/59 115/64 89/38 O2 Sat by Pulse 96 98 96 Oximetry 02/20/20 02/20/20 02/20/20 09:45 10:00 10:15 Temperature Pulse Rate 100 H 105 H 105 H Respiratory 19 20 22 Rate Blood Pressure 109/59 101/65 96/63 O2 Sat by Pulse 96 99 98 Oximetry 02/20/20 02/20/20 02/20/20 10:30 10:45 11:00 Temperature Pulse Rate 109 H 105 H 105 H Respiratory 20 20 22 Rate Blood Pressure 101/59 112/43 100/68 O2 Sat by Pulse 98 95 99 Oximetry 02/20/20 02/20/20 02/20/20 11:15 11:31 11:45 Temperature Pulse Rate 116 H 113 H 109 H Respiratory 24 21 23 Rate Blood Pressure 100/68 100/68 107/53 O2 Sat by Pulse 97 93 99 Oximetry 02/20/20 02/20/20 02/20/20 12:00 12:16 12:30 Temperature 98.5 F Pulse Rate 100 H 105 H 106 H Respiratory 23 22 24 Rate Blood Pressure 170/133 94/55 O2 Sat by Pulse 99 89 99 Oximetry 02/20/20 12:44 Temperature 98.5 F Pulse Rate Respiratory Rate Blood Pressure O2 Sat by Pulse Oximetry - Lab 02/20/20 04:44 02/20/20 04:44 Most recent lab results ABG pH 7.355 pH Units (7.350-7.450) 02/19/20 05:08 ABG pCO2 27.3 mm Hg 02/19/20 05:08 ABG pO2 168.2 mm Hg (80.0-90.0) H 02/19/20 05:08 ABG HCO3 14.9 mmol/L (20.0-26.0) L 02/19/20 05:08 ABG O2 Saturation 99.0 % (95.0-99.0) 02/19/20 05:08 Calcium 7.3 mg/dL (8.4-10.2) L 02/20/20 04:44 Urine Creatinine 35.2 mg/dL (0.1-20.0) H 02/18/20 17:40 Urine Sodium 104 mmol/L 02/18/20 17:40 Urine Total Protein 38 mg/dL (5-11.8) H 02/18/20 17:40 Medications & Allergies - Medications Allergies/Adverse Reactions: Allergies No Known Allergies Allergy (Unverified 05/01/15 23:41) Home Medications: Home Medications Medication Instructions Recorded Confirmed Last Taken Type Acetaminophen [Acetaminophen TAB] 650 mg PO Q8H PRN 05/02/15 02/18/20 Unknown History Albuterol Sulfate [Albuterol 0.63% 0.63 mg IH Q6H PRN 05/02/15 02/18/20 Unknown History NEBS] Aspirin [Aspirin BABY CHEW TAB] 81 mg PO DAILY 05/02/15 02/18/20 05/01/15 History AtorvaSTATin [Lipitor] 20 mg PO QHS 05/02/15 02/18/20 05/01/15 History Docusate Sodium [Colace CAP] 100 mg PO BID 05/02/15 02/18/20 05/02/15 History Insulin Lispro [HumaLOG VIAL] See Protocol SUB-Q ACHS 05/02/15 02/18/20 05/01/15 History amLODIPine 5 mg PO DAILY 05/02/15 02/18/20 05/01/15 History Active Medications: Generic Name Dose Route Start Last Admin Trade Name Freq PRN Reason Stop Dose Admin Aspirin 81 mg 02/18/20 10:00 02/20/20 09:25 Baby Aspirin PO 81 mg DAILY LOS Administration Atorvastatin Calcium 20 mg 02/18/20 22:00 02/19/20 21:53 Lipitor PO 20 mg QHS LOS Administration Dextrose 50 ml 02/18/20 12:55 D50w (25gm) Syringe IV Q30MIN PRN Hypoglycemia Protocol Docusate Sodium 100 mg 02/20/20 12:00 02/20/20 11:50 Colace PO 100 mg BID LOS Administration Famotidine 20 mg 02/18/20 10:00 02/20/20 09:25 Pepcid IV 20 mg DAILY LOS Administration Hydrophilic Ointment 1 applic 02/17/20 15:12 Vaseline Lip Therapy TP Q2HR PRN Dry Lips Norepinephrine 4 mg in 250 mls @ 7.5 mls/hr 02/17/20 20:00 02/20/20 11:50 Levophed Drip 4 Mg/Ns 250 Ml IV 10 mcg/min TITR LOS 37.5 mls/hr Administration Protocol 2 MCG/MIN Heparin Sodium/Sodium Chloride 25,000 unit in 500 mls @ 20 mls/hr 02/17/20 23:00 02/20/20 11:05 Heparin/ 0.45% Nacl-25,000 Unit/500 Ml IV 1,050 units/hr TITRATE LOS 21 mls/hr Administration Protocol 1,000 UNITS/HR Sodium Chloride 1,000 mls @ 75 mls/hr 02/18/20 02:45 Nacl 0.9% 1000 Ml IV DIRECT LOS Cefepime HCl 2 gm in 100 mls @ 200 mls/hr 02/18/20 09:00 02/20/20 09:25 Cefepime/Ns 2 Gm/100 Ml IV 200 mls/hr Q24HR LOS Administration Protocol Vasopressin 20 unit/ Sodium 101 mls @ 9.09 mls/hr 02/18/20 10:00 02/20/20 12:43 Chloride IV 0.03 units/min TITR LOS 9.09 mls/hr Titration Protocol 0.03 UNITS/MIN Sodium Bicarbonate 150 meq/ 1,150 mls @ 75 mls/hr 02/18/20 13:00 02/19/20 20:15 Dextrose IV 75 mls/hr DIRECT LOS Administration Vancomycin HCl 1,250 mg/ 275 mls @ 166.667 mls/hr 02/20/20 14:00 Sodium Chloride IV 02/20/20 15:38 ONCE ONE Insulin Human Regular 0 unit 02/18/20 13:00 02/20/20 12:44 Humulin R SUB-Q Not Given Q6HR LOS Protocol Magnesium Hydroxide 30 ml 02/18/20 02:31 Milk Of Magnesia PO Q4H PRN Constipation Multi-Ingred Cream/Lotion/Oil/Oint 1 applic 02/17/20 15:12 02/19/20 04:25 Artificial Tears Ophth Oint OU 1 applic Q4HR PRN Administration Dry Eye(s) Sodium Chloride 10 ml 02/18/20 10:00 02/20/20 09:25 Sodium Chloride Flush Syringe 10 Ml IV 10 ml BID LOS Administration Sodium Chloride 10 ml 02/18/20 02:31 Sodium Chloride Flush Syringe 10 Ml IV PRN PRN LINE FLUSH
--- NOTE | 2020-02-20 14:27 | Progress Note ---
Assessment and Plan Suspect NSTEMI type II in the setting of septic shock/acute resp fail/AMMY. Continue heparin drip. Cont to trend Theron and f/u ECG in AM. DDimer significantly elevated - V/Q scan pending per primary. Obtain echo. Wean pressors as tolerated. Prognosis remains guarded. Pt seen in conjunction with Dr. Kat Garay who agrees with the assessment and plan of care. - Patient Problems (1) Acute respiratory failure Current Visit: Yes Status: Acute (2) Bilateral pneumonia Current Visit: Yes Status: Acute (3) Septic shock Current Visit: Yes Status: Acute (4) Acute kidney injury superimposed on CKD Current Visit: Yes Status: Acute (5) Anemia Current Visit: Yes Status: Acute (6) Elevated d-dimer Current Visit: Yes Status: Acute (7) NSTEMI (non-ST elevated myocardial infarction) Current Visit: Yes Status: Acute (8) HTN (hypertension) Current Visit: No Status: Chronic Qualifiers: Hypertension type: essential hypertension Qualified Code(s): I10 - Essential (primary) hypertension (9) HLD (hyperlipidemia) Current Visit: Yes Status: Chronic Qualifiers: Hyperlipidemia type: mixed hyperlipidemia Qualified Code(s): E78.2 - Mixed hyperlipidemia (10) DM2 (diabetes mellitus, type 2) Current Visit: Yes Status: Chronic (11) PVD (peripheral vascular disease) Current Visit: Yes Status: Chronic (12) H/O: CVA (cerebrovascular accident) Current Visit: Yes Status: Chronic Subjective Date of service: 02/20/20 Principal diagnosis: Septic Shock Interval history: pt remains intubated, sedated. in SR on tele HR 100s. on vasopressors. Objective Last Vital Signs Temp 98.5 F 02/20/20 12:44 Pulse 106 H 02/20/20 12:30 Resp 24 02/20/20 12:30 BP 94/55 02/20/20 12:30 Pulse Ox 99 02/20/20 12:30 - Physical Examination General: Other (intubated) HEENT: Positive: Normocephaly Neck: Negative: JVD/HJR Cardiac: Positive: Reg Rate and Rhythm, S1/S2 Lungs: Positive: Decreased Breath Sounds, Oxygen, Ventilated Respirations Neuro: Positive: Other (intubated/sedated) Abdomen: Positive: Soft, Active Bowel Sounds Skin: Negative: Rash Musculoskeletal: No Fluid Collection Extremities: Present: upper extr. pulses, lower extr. pulses. Absent: edema - Labs and Meds CBC 02/20/20 Range/Units 04:44 WBC 8.1 (4.5-11.0) K/mm3 RBC 2.64 L (3.65-5.03) M/mm3 Hgb 7.9 L (11.8-15.2) gm/dl Hct 24.1 L (35.5-45.6) % Plt Count 137 L (140-440) K/mm3 Comprehensive Metabolic Panel 02/20/20 Range/Units 04:44 Sodium 143 (137-145) mmol/L Potassium 4.4 (3.6-5.0) mmol/L Chloride 110.4 H (98-107) mmol/L Carbon Dioxide 19 L (22-30) mmol/L BUN 61 H (9-20) mg/dL Creatinine 2.4 H (0.8-1.3) mg/dL Glucose 93 (75-100) mg/dL Calcium 7.3 L (8.4-10.2) mg/dL - Imaging and Cardiology EKG: report reviewed, image reviewed Echo: pending - Telemetry EKG Rhythm: Sinus Rhythm - EKG Sinus rhythms and dysrhythmias: sinus rhythm
--- NOTE | 2020-02-20 15:01 | Nuclear Medicine Report ---
NUCLEAR MEDICINE PERFUSION LUNG SCAN INDICATION: Elevated D-dimer/evaluate for PE. TECHNIQUE: 5.0 mCi of Tc-99m MAA were given by IV. COMPARISON: Chest radiograph dated today. FINDINGS: PERFUSION: No significant perfusion defects. ADDITIONAL FINDINGS: None. IMPRESSION: 1. Low probability for pulmonary embolism. Signer Name: Jimbo De La Rosa MD Signed: 02/20/2020 2:56 PM Workstation Name: [id number]
[2020-02-20] MEDS: SODIUM BICARBONATE 150 MEQ in DEXTROSE 5% IN WATER 1,000 ML IV SCH (15:09)
--- NOTE | 2020-02-20 17:12 | Progress Note ---
Assessment and Plan Cultures: Coronavirus PCR 02/05/2020: Negative Coronavirus PCR 02/10/2020: Negative Coronavirus PCR 02/18/2020: Negative MRSA nasal PCR 02/05/2020: Positive 02/04/2020 blood culture: No growth 02/04/2020 tracheal aspirate: Proteus, Hemophilus, MRSA 02/14/2020 blood culture: No growth 02/17/2020 tracheal aspirate: normal resp demetrius 02/17/2020 blood culture: No growth today A/P: 74 y/o male with history of CVA with left hemiparesis, diabetes mellitus, hypertension, dyslipidemia, dementia and peripheral vascular disease, from [facility], recent COVID, admitted on due to AMS and low O2 sats: #Severe sepsis with septic shock: on 2 pressors, elevated lactate; source likely pneumonia/suspect PE post COVID. #Bilateral pneumonia: likely bacterial pneumonia. COVID markers elevated Charmaine tin 1191. Ddmer >10,000. CRP 18. LDH 381. Recent sputum cx with PMDR Proteus, MRSA. H flu. MRSA PCR positive. Elevated procal however possible due to renal failure #Acute resp failure: intubated. Very high ddimer suspect PE post COVID. #Elevated LFTs: from sepsis #AMMY on CKD: renally adjusted meds, required HD during previous admission Recs: -Continue cefepime and vancomycin renally adjusted -Agree with full anticoagulation -When stable VQ scan or chest CTA if creat better -femoral TLC should be removed soon High risk mortality / guarded prognosis consider palliative care Edel Saenz MD [facility] M: [phone] O: [phone] F: [phone] Subjective Date of service: 02/20/20 Principal diagnosis: Septic Shock Interval history: Afebrile, normal white count. No change. Personally reviewed: Perfusion scan: Low probability for pulmonary embolism Chest x-ray worsening. Objective - Exam Narrative Exam: Constitutional: sedated intubated Head, Ears, Nose: Normocephalic, atraumatic. External ears, nose normal Oral: +ETT Eyes: Conjunctivae/corneas clear. No icterus. No ptosis. Neck: limited Cardiovascular: tachy Respiratory: limited GI: limited Musculoskeletal: limited Skin: limited Hem/Lymphatic: limited Psych: limited Neurological: limited - Constitutional Vitals: Vital Signs Temp Pulse Resp BP Pulse Ox 98.6 F 101 H 19 103/70 100 02/20/20 16:00 02/20/20 15:30 02/20/20 15:30 02/20/20 15:30 02/20/20 15:30 Temperature -Last 24 Hours Temperature 98.6 F Temperature 98.5 F Temperature 98.5 F Temperature 97.9 F Temperature 99.1 F Temperature 98.8 F Temperature 98.7 F - Labs CBC & Chem 7: 02/20/20 04:44 02/20/20 04:44 Labs: Abnormal lab results 02/19/20 02/19/20 02/19/20 Range/Units 17:46 20:02 23:50 RBC (3.65-5.03) M/mm3 Hgb (11.8-15.2) gm/dl Hct (35.5-45.6) % RDW (13.2-15.2) % Plt Count (140-440) K/mm3 Heparin Anti-Xa Level 0.12 L (0.3-0.7) U.I./ml Chloride (98-107) mmol/L Carbon Dioxide (22-30) mmol/L BUN (9-20) mg/dL Creatinine (0.8-1.3) mg/dL POC Glucose 133 H 128 H (70-105) Calcium (8.4-10.2) mg/dL Total Creatine Kinase (55-170) units/L 02/20/20 02/20/20 02/20/20 Range/Units 04:44 04:44 04:44 RBC 2.64 L (3.65-5.03) M/mm3 Hgb 7.9 L (11.8-15.2) gm/dl Hct 24.1 L (35.5-45.6) % RDW 16.3 H (13.2-15.2) % Plt Count 137 L (140-440) K/mm3 Heparin Anti-Xa Level 0.15 L (0.3-0.7) U.I./ml Chloride 110.4 H (98-107) mmol/L Carbon Dioxide 19 L (22-30) mmol/L BUN 61 H (9-20) mg/dL Creatinine 2.4 H (0.8-1.3) mg/dL POC Glucose (70-105) Calcium 7.3 L (8.4-10.2) mg/dL Total Creatine Kinase 2238 H (55-170) units/L 02/20/20 Range/Units 10:00 RBC (3.65-5.03) M/mm3 Hgb (11.8-15.2) gm/dl Hct (35.5-45.6) % RDW (13.2-15.2) % Plt Count (140-440) K/mm3 Heparin Anti-Xa Level < 0.10 L (0.3-0.7) U.I./ml Chloride (98-107) mmol/L Carbon Dioxide (22-30) mmol/L BUN (9-20) mg/dL Creatinine (0.8-1.3) mg/dL POC Glucose (70-105) Calcium (8.4-10.2) mg/dL Total Creatine Kinase (55-170) units/L
[2020-02-21] MEDS: SODIUM BICARBONATE 150 MEQ in DEXTROSE 5% IN WATER 1,000 ML IV SCH (02:54)
[2020-02-21] MEDS: VASOPRESSIN 20 UNIT in SODIUM CHLORIDE 0.9% 100 ML IV SCH (03:27)
[2020-02-21 05:21] LABS: Hematocrit 21.1 % (35.5-45.6); Hemoglobin 6.9 gm/dl (11.8-15.2); Mean Corpuscular HGB Conc 33 % (32-34); Mean Corpuscular Volume 90 fl (84-94); Platelet Count 126 K/mm3 (140-440); Red Blood Count 2.35 M/mm3 (3.65-5.03); Red Cell Distribution Width 16.2 % (13.2-15.2)
[2020-02-21 05:53] LABS: Calcium 6.8 mg/dL (8.4-10.2)
[2020-02-21] MEDS: INSULIN REGULAR, HUMAN 100 UNIT/ML 3ML VIAL SUB-Q SCH ×3 (06:37→18:12)
--- NOTE | 2020-02-21 08:45 | Progress Note ---
Assessment and Plan Acute hypoxic respiratory failure Septic Shock 2/2 PNA Bilateral PNA Acute Kidney Injury 2/2 ischemic ATN from septic shock, Rhabdo, on underlying CKD, r/o obstruction Elevated D-Dimers Plan: - Cr is trending down - Trend daily CK levels - Urine eosinophils negative, calculated protein to cr ratio 1 g, monitor - Pt on isolation for concern of COVID-19, ID onboard - Yin Catheter: Yes - Renally dose medications - Avoid nephrotoxins - Continue to monitor - no indication for [employer] Subjective Date of service: 02/21/20 Principal diagnosis: Septic Shock Interval history: Patient with recent + COVID-19, pt not examined to limit direct contact/resources, reviewed medical chart, labs, and notes. Objective - Vital Signs Vital signs: Vital Signs - 12hr 02/20/20 02/20/20 02/20/20 20:46 21:00 21:15 Temperature Pulse Rate 92 H 68 74 Pulse Rate [ From Monitor] Respiratory 19 15 15 Rate Blood Pressure 84/41 94/47 88/50 O2 Sat by Pulse 100 100 100 Oximetry 02/20/20 02/20/20 02/20/20 21:30 21:45 22:00 Temperature Pulse Rate 75 89 62 Pulse Rate [ From Monitor] Respiratory 14 13 14 Rate Blood Pressure 79/52 97/63 94/55 O2 Sat by Pulse 100 100 100 Oximetry 02/20/20 02/20/20 02/20/20 22:15 22:21 22:30 Temperature Pulse Rate 62 89 Pulse Rate [ From Monitor] Respiratory 15 15 Rate Blood Pressure 93/49 94/39 O2 Sat by Pulse 100 100 100 Oximetry 02/20/20 02/20/20 02/20/20 22:45 23:00 23:12 Temperature Pulse Rate 85 92 H 90 Pulse Rate [ From Monitor] Respiratory 15 15 20 Rate Blood Pressure 106/40 94/47 94/47 O2 Sat by Pulse 98 98 99 Oximetry 02/20/20 02/20/20 02/20/20 23:16 23:18 23:30 Temperature 97.8 F Pulse Rate 91 H 88 Pulse Rate [ From Monitor] Respiratory 16 16 Rate Blood Pressure 99/67 98/62 O2 Sat by Pulse 98 99 Oximetry 02/20/20 02/21/20 02/21/20 23:45 00:00 00:15 Temperature Pulse Rate 87 66 66 Pulse Rate [ 93 H From Monitor] Respiratory 17 16 17 Rate Blood Pressure 100/63 97/55 87/49 O2 Sat by Pulse 100 98 98 Oximetry 02/21/20 02/21/20 02/21/20 00:30 00:45 01:00 Temperature Pulse Rate 91 H 65 77 Pulse Rate [ From Monitor] Respiratory 15 17 15 Rate Blood Pressure 93/61 103/55 96/55 O2 Sat by Pulse 99 99 Oximetry 02/21/20 02/21/20 02/21/20 01:15 01:30 01:45 Temperature Pulse Rate 87 91 H 64 Pulse Rate [ From Monitor] Respiratory 13 16 16 Rate Blood Pressure 96/60 100/60 98/52 O2 Sat by Pulse 96 98 97 Oximetry 02/21/20 02/21/20 02/21/20 02:00 02:15 02:30 Temperature Pulse Rate 88 63 85 Pulse Rate [ From Monitor] Respiratory 17 16 17 Rate Blood Pressure 98/56 85/54 100/58 O2 Sat by Pulse 97 98 98 Oximetry 02/21/20 02/21/20 02/21/20 02:45 03:00 03:15 Temperature Pulse Rate 62 72 73 Pulse Rate [ From Monitor] Respiratory 16 18 17 Rate Blood Pressure 91/50 93/50 99/53 O2 Sat by Pulse 97 97 96 Oximetry 02/21/20 02/21/20 02/21/20 03:30 03:45 04:00 Temperature 98.4 F Pulse Rate 80 93 H 86 Pulse Rate [ From Monitor] Respiratory 15 17 17 Rate Blood Pressure 93/60 105/54 97/56 O2 Sat by Pulse 99 98 98 Oximetry 02/21/20 02/21/20 02/21/20 04:15 04:30 04:46 Temperature Pulse Rate 89 90 95 H Pulse Rate [ From Monitor] Respiratory 19 15 19 Rate Blood Pressure 101/54 100/58 105/54 O2 Sat by Pulse 97 99 98 Oximetry 02/21/20 02/21/20 02/21/20 05:00 05:16 05:30 Temperature Pulse Rate 89 67 92 H Pulse Rate [ 90 From Monitor] Respiratory 15 18 14 Rate Blood Pressure 121/81 125/83 O2 Sat by Pulse 98 98 98 Oximetry 02/21/20 02/21/20 02/21/20 05:46 06:00 06:15 Temperature Pulse Rate 90 88 76 Pulse Rate [ From Monitor] Respiratory 17 15 22 Rate Blood Pressure 94/55 75/60 108/72 O2 Sat by Pulse 98 97 97 Oximetry 02/21/20 08:37 Temperature Pulse Rate Pulse Rate [ From Monitor] Respiratory Rate Blood Pressure O2 Sat by Pulse 99 Oximetry - Lab 02/21/20 04:39 02/21/20 04:39 Most recent lab results ABG pH 7.355 pH Units (7.350-7.450) 02/19/20 05:08 ABG pCO2 27.3 mm Hg 02/19/20 05:08 ABG pO2 168.2 mm Hg (80.0-90.0) H 02/19/20 05:08 ABG HCO3 14.9 mmol/L (20.0-26.0) L 02/19/20 05:08 ABG O2 Saturation 99.0 % (95.0-99.0) 02/19/20 05:08 Calcium 6.8 mg/dL (8.4-10.2) L 02/21/20 04:39 Urine Creatinine 35.2 mg/dL (0.1-20.0) H 02/18/20 17:40 Urine Sodium 104 mmol/L 02/18/20 17:40 Urine Total Protein 38 mg/dL (5-11.8) H 02/18/20 17:40 Medications & Allergies - Medications Allergies/Adverse Reactions: Allergies No Known Allergies Allergy (Unverified 05/01/15 23:41) Home Medications: Home Medications Medication Instructions Recorded Confirmed Last Taken Type Acetaminophen [Acetaminophen TAB] 650 mg PO Q8H PRN 05/02/15 02/18/20 Unknown History Albuterol Sulfate [Albuterol 0.63% 0.63 mg IH Q6H PRN 05/02/15 02/18/20 Unknown History NEBS] Aspirin [Aspirin BABY CHEW TAB] 81 mg PO DAILY 05/02/15 02/18/20 05/01/15 History AtorvaSTATin [Lipitor] 20 mg PO QHS 05/02/15 02/18/20 05/01/15 History Docusate Sodium [Colace CAP] 100 mg PO BID 05/02/15 02/18/20 05/02/15 History Insulin Lispro [HumaLOG VIAL] See Protocol SUB-Q ACHS 05/02/15 02/18/20 05/01/15 History amLODIPine 5 mg PO DAILY 05/02/15 02/18/20 05/01/15 History Active Medications: Generic Name Dose Route Start Last Admin Trade Name Freq PRN Reason Stop Dose Admin Aspirin 81 mg 02/18/20 10:00 02/20/20 09:25 Baby Aspirin PO 81 mg DAILY LOS Administration Atorvastatin Calcium 20 mg 02/18/20 22:00 02/20/20 23:13 Lipitor PO 20 mg QHS LOS Administration Dextrose 50 ml 02/18/20 12:55 D50w (25gm) Syringe IV Q30MIN PRN Hypoglycemia Protocol Docusate Sodium 100 mg 02/20/20 12:00 02/20/20 23:13 Colace PO 100 mg BID LOS Administration Famotidine 20 mg 02/18/20 10:00 02/20/20 09:25 Pepcid IV 20 mg DAILY LOS Administration Hydrophilic Ointment 1 applic 02/17/20 15:12 Vaseline Lip Therapy TP Q2HR PRN Dry Lips Norepinephrine 4 mg in 250 mls @ 7.5 mls/hr 02/17/20 20:00 02/21/20 08:15 Levophed Drip 4 Mg/Ns 250 Ml IV 0 mcg/min TITR LOS 0 mls/hr Titration Protocol 2 MCG/MIN Cefepime HCl 2 gm in 100 mls @ 200 mls/hr 02/18/20 09:00 02/20/20 09:25 Cefepime/Ns 2 Gm/100 Ml IV 200 mls/hr Q24HR LOS Administration Protocol Vasopressin 20 unit/ Sodium 101 mls @ 9.09 mls/hr 02/18/20 10:00 02/21/20 03:27 Chloride IV 0.03 units/min TITR LOS 9.09 mls/hr Administration Protocol 0.03 UNITS/MIN Sodium Bicarbonate 150 meq/ 1,150 mls @ 75 mls/hr 02/18/20 13:00 02/21/20 02:54 Dextrose IV 75 mls/hr DIRECT LOS Administration Insulin Human Regular 0 unit 02/18/20 13:00 02/21/20 06:37 Humulin R SUB-Q Not Given Q6HR LOS Protocol Magnesium Hydroxide 30 ml 02/18/20 02:31 Milk Of Magnesia PO Q4H PRN Constipation Multi-Ingred Cream/Lotion/Oil/Oint 1 applic 02/17/20 15:12 02/19/20 04:25 Artificial Tears Ophth Oint OU 1 applic Q4HR PRN Administration Dry Eye(s) Sodium Chloride 10 ml 02/18/20 10:00 02/20/20 23:13 Sodium Chloride Flush Syringe 10 Ml IV 10 ml BID LOS Administration Sodium Chloride 10 ml 02/18/20 02:31 Sodium Chloride Flush Syringe 10 Ml IV PRN PRN LINE FLUSH
--- NOTE | 2020-02-21 09:00 | Progress Note ---
Assessment and Plan Assessment and plan: --Anemia: Hb 6.9 Current Visit: Yes Status: Acute Plan to address problem: no evidence of external bleeding Transfuse 2 units of PRBC Closely monitor H&H and transfuse additional as needed If no improvement GI evaluation --Elevated D-dimers Current Visit: Yes Status: Acute Plan to address problem: More than 10,000, on heparin drip V/Q scan low probability for PE Check lower extremity venous Doppler dc heparin,lovenox renal dose 1 dose Pending lower extremity Doppler study to rule out DVT --Septic shock/on pressors/resolved Current Visit: Yes Status: Acute Plan to address problem: Monitor off vasopressors, --Sepsis; right pneumonia/HCAP Current Visit: Yes Status: Acute Plan to address problem: Continue Vanco and cefepime , follow cultures, supportive care --Rhabdomyolysis; Current Visit: Yes Status: Acute Plan to address problem: Continue IV fluids, input output monitoring, CK levels trending down CK [id number] We will monitor renal function --COVID-19 test negative x2 during last admission Test negative during this admission 02/18/2020 However patient has very high levels of inflammatory markers ID consulted, trend the markers --Ac. resp failure with hypoxia/ extubated 02/19/2020 Current Visit: No Status: Acute Plan to address problem: on nasal cannula oxygen, saturating well Patient is confused, hypotensive on Levophed --Acute on chronic kidney disease Current Visit: Yes Status: Acute Plan to address problem: Secondary to ATN, gentle hydration Avoid nephrotoxins, monitor renal function Nephrology following -- DVT prophylaxis Current Visit: No Status: Acute Plan to address problem: SCD, no pharmacologic anticoagulation in view of anemia PT OT, DC planning Monitor closely and adjust management as needed Critical care time 32 minutes The high probability of a clinically significant, sudden or life threatening deterioration of the [Respiratory, renal, ID] system(s) required my full and direct attention, intervention and personal management.The aggregate critical care time was [32] minutes. This time is in addition to time spent performing , reported procedures but includes the following: [x] Data Review and interpretation [x] Patient assessment and monitoring of vital signs [x] Documentation [x] Medication orders and management We will closely monitor the patient and adjust the management as needed Plan of care reviewed with the patient's nurse 02/18; patient was extubated, tolerated well, supportive care 02/19; hypotensive shock on pressors, check VQ scan to rule out PE 02/20: VQ scan low probability for PE, DC heparin drip ,rule out DVT Anemia Hb, advised 2 units PRBC transfusion, GI evaluation if needed History Interval history: I seen and examined the patient at the bedside Patient's chart and medications reviewed Patient feels slightly better, off pressors Vital signs noted Hospitalist Physical - Constitutional Vitals: Temp Pulse Resp BP Pulse Ox 98.4 F 70 23 65/47 98 02/21/20 03:30 02/21/20 08:46 02/21/20 08:46 02/21/20 08:46 02/21/20 08:46 General appearance: Present: no acute distress, well-nourished - EENT Eyes: Present: PERRL, EOM intact - Neck Neck: Present: supple, normal ROM - Respiratory Respiratory effort: normal Respiratory: bilateral: diminished, negative: rales, rhonchi, wheezing - Cardiovascular Rhythm: regular Heart Sounds: Present: S1 & S2 - Extremities Extremities: no ischemia, No edema - Abdominal General gastrointestinal: soft, non-tender, non-distended, normal bowel sounds - Integumentary Integumentary: Present: clear, warm - Psychiatric Psychiatric: other (Noncommunicative) - Neurologic Neurologic: other (Noncommunicative) HEART Score - HEART Score Troponin: Troponin T 0.573 ng/mL (0.00-0.029) H* D 02/20/20 17:20 Results - Labs CBC & Chem 7: 02/21/20 04:39 02/21/20 04:39 Labs: Laboratory Last Values WBC 7.4 K/mm3 (4.5-11.0) 02/21/20 04:39 RBC 2.35 M/mm3 (3.65-5.03) L 02/21/20 04:39 Hgb 6.9 gm/dl (11.8-15.2) L 02/21/20 04:39 Hct 21.1 % (35.5-45.6) L 02/21/20 04:39 MCV 90 fl (84-94) 02/21/20 04:39 MCH 29 pg (28-32) 02/21/20 04:39 MCHC 33 % (32-34) 02/21/20 04:39 RDW 16.2 % (13.2-15.2) H 02/21/20 04:39 Plt Count 126 K/mm3 (140-440) L 02/21/20 04:39 Lymph % (Auto) 10.5 % (13.4-35.0) L 02/19/20 04:00 [place] % (Auto) 6.8 % (0.0-7.3) 02/19/20 04:00 Eos % (Auto) 0.4 % (0.0-4.3) 02/19/20 04:00 Baso % (Auto) 0.2 % (0.0-1.8) 02/19/20 04:00 Lymph # 1.8 K/mm3 (1.2-5.4) 02/19/20 04:00 [place] # 1.2 K/mm3 (0.0-0.8) H 02/19/20 04:00 Eos # 0.1 K/mm3 (0.0-0.4) 02/19/20 04:00 Baso # 0.0 K/mm3 (0.0-0.1) 02/19/20 04:00 Add Manual Diff Complete 02/17/20 16:28 Total Counted 100 02/17/20 16:28 Seg Neutrophils % 82.1 % (40.0-70.0) H 02/19/20 04:00 Seg Neuts % (Manual) 84.0 % (40.0-70.0) H 02/17/20 16:28 Band Neutrophils % 0 % 02/17/20 16:28 Lymphocytes % (Manual) 8.0 % (13.4-35.0) L 02/17/20 16:28 Reactive Lymphs % (Man) 0 % 02/17/20 16:28 Monocytes % (Manual) 8.0 % (0.0-7.3) H 02/17/20 16:28 Eosinophils % (Manual) 0 % (0.0-4.3) 02/17/20 16:28 Basophils % (Manual) 0 % (0.0-1.8) 02/17/20 16:28 Metamyelocytes % 0 % 02/17/20 16:28 Myelocytes % 0 % 02/17/20 16:28 Promyelocytes % 0 % 02/17/20 16:28 Blast Cells % 0 % 02/17/20 16:28 Nucleated RBC % Not Reportable 02/17/20 16:28 Seg Neutrophils # 14.5 K/mm3 (1.8-7.7) H 02/19/20 04:00 Seg Neutrophils # Man 19.7 K/mm3 (1.8-7.7) H 02/17/20 16:28 Band Neutrophils # 0.0 K/mm3 02/17/20 16:28 Lymphocytes # (Manual) 1.9 K/mm3 (1.2-5.4) 02/17/20 16:28 Abs React Lymphs (Man) 0.0 K/mm3 02/17/20 16:28 Monocytes # (Manual) 1.9 K/mm3 (0.0-0.8) H 02/17/20 16:28 Eosinophils # (Manual) 0.0 K/mm3 (0.0-0.4) 02/17/20 16:28 Basophils # (Manual) 0.0 K/mm3 (0.0-0.1) 02/17/20 16:28 Metamyelocytes # 0.0 K/mm3 02/17/20 16:28 Myelocytes # 0.0 K/mm3 02/17/20 16:28 Promyelocytes # 0.0 K/mm3 02/17/20 16:28 Blast Cells # 0.0 K/mm3 02/17/20 16:28 WBC Morphology Not Reportable 02/17/20 16:28 Hypersegmented Neuts Not Reportable 02/17/20 16:28 Hyposegmented Neuts Not Reportable 02/17/20 16:28 Hypogranular Neuts Not Reportable 02/17/20 16:28 Smudge Cells Not Reportable 02/17/20 16:28 Toxic Granulation Not Reportable 02/17/20 16:28 Toxic Vacuolation Not Reportable 02/17/20 16:28 Dohle Bodies Not Reportable 02/17/20 16:28 Pelger-Huet Anomaly Not Reportable 02/17/20 16:28 Krys Rods Not Reportable 02/17/20 16:28 Platelet Estimate Not Reportable 02/17/20 16:28 Clumped Platelets Not Reportable 02/17/20 16:28 Plt Clumps, EDTA Not Reportable 02/17/20 16:28 Large Platelets Not Reportable 02/17/20 16:28 Giant Platelets Not Reportable 02/17/20 16:28 Platelet Satelliting Not Reportable 02/17/20 16:28 Plt Morphology Comment Not Reportable 02/17/20 16:28 RBC Morphology Normal 02/17/20 16:28 Dimorphic RBCs Not Reportable 02/17/20 16:28 Polychromasia Not Reportable 02/17/20 16:28 Hypochromasia Not Reportable 02/17/20 16:28 Poikilocytosis Not Reportable 02/17/20 16:28 Anisocytosis Not Reportable 02/17/20 16:28 Microcytosis Not Reportable 02/17/20 16:28 Macrocytosis Not Reportable 02/17/20 16:28 Spherocytes Not Reportable 02/17/20 16:28 Pappenheimer Bodies Not Reportable 02/17/20 16:28 Sickle Cells Not Reportable 02/17/20 16:28 Target Cells Not Reportable 02/17/20 16:28 Tear Drop Cells Not Reportable 02/17/20 16:28 Ovalocytes Not Reportable 02/17/20 16:28 Helmet Cells Not Reportable 02/17/20 16:28 [place] Bodies Not Reportable 02/17/20 16:28 [place] Rings Not Reportable 02/17/20 16:28 Christo Cells Not Reportable 02/17/20 16:28 Bite Cells Not Reportable 02/17/20 16:28 Crenated Cell Not Reportable 02/17/20 16:28 Elliptocytes Not Reportable 02/17/20 16:28 Acanthocytes (Spur) Not Reportable 02/17/20 16:28 Rouleaux Not Reportable 02/17/20 16:28 Hemoglobin C Crystals Not Reportable 02/17/20 16:28 Schistocytes Not Reportable 02/17/20 16:28 Malaria parasites Not Reportable 02/17/20 16:28 Keron Bodies Not Reportable 02/17/20 16:28 Hem Pathologist Commnt No 02/17/20 16:28 PT 18.6 Sec. (12.2-14.9) H 02/19/20 03:20 INR 1.53 (0.87-1.13) H 02/19/20 03:20 APTT 26.8 Sec. (24.2-36.6) 02/17/20 16:28 D-Dimer 1327.30 ng/mlDDU (0-234) H 02/20/20 17:20 Heparin Anti-Xa Level 0.17 U.I./ml (0.3-0.7) L 02/20/20 17:20 ABG pH 7.355 pH Units (7.350-7.450) 02/19/20 05:08 ABG pCO2 27.3 mm Hg 02/19/20 05:08 ABG pO2 168.2 mm Hg (80.0-90.0) H 02/19/20 05:08 ABG HCO3 14.9 mmol/L (20.0-26.0) L 02/19/20 05:08 ABG O2 Saturation 99.0 % (95.0-99.0) 02/19/20 05:08 ABG O2 Content 11.7 (0.0-44) 02/19/20 05:08 ABG Base Excess -9.5 mmol/L (-2.0-3.0) L 02/19/20 05:08 ABG Hemoglobin 8.3 gm/dl (14.0-18.0) L 02/19/20 05:08 ABG Carboxyhemoglobin 1.2 % (0.0-5.0) 02/19/20 05:08 ABG Methemoglobin 0.7 % (0.0-1.5) 02/19/20 05:08 Oxyhemoglobin 97.2 % (95.0-99.0) 02/19/20 05:08 FiO2 40 % 02/19/20 05:08 Sodium 142 mmol/L (137-145) 02/21/20 04:39 Potassium 3.8 mmol/L (3.6-5.0) 02/21/20 04:39 Chloride 105.3 mmol/L (98-107) 02/21/20 04:39 Carbon Dioxide 23 mmol/L (22-30) 02/21/20 04:39 Anion Gap 18 mmol/L 02/21/20 04:39 BUN 54 mg/dL (9-20) H 02/21/20 04:39 Creatinine 2.2 mg/dL (0.8-1.3) H 02/21/20 04:39 Estimated GFR 35 ml/min 02/21/20 04:39 BUN/Creatinine Ratio 25 % 02/21/20 04:39 Glucose 120 mg/dL (75-100) H 02/21/20 04:39 POC Glucose 139 (70-105) H 02/21/20 05:12 Lactic Acid 1.90 mmol/L (0.7-2.0) 02/17/20 22:56 Calcium 6.8 mg/dL (8.4-10.2) L 02/21/20 04:39 Ferritin 1191.0 ng/mL (30.0-300.0) H 02/17/20 16:28 Total Bilirubin 0.50 mg/dL (0.1-1.2) 02/17/20 16:28 AST 65 units/L (5-40) H 02/17/20 16:28 ALT 81 units/L (7-56) H 02/17/20 16:28 Alkaline Phosphatase 101 units/L (35-129) 02/17/20 16:28 Lactate Dehydrogenase 381 units/L (91-180) H 02/17/20 16:28 Total Creatine Kinase 1488 units/L (55-170) H 02/21/20 04:39 CK-MB (CK-2) 78.0 ng/mL (0.0-4.0) H 02/18/20 10:10 CK-MB (CK-2) Rel Index 1.3 (0-4) 02/18/20 10:10 Troponin T 0.573 ng/mL (0.00-0.029) H* D 02/20/20 17:20 C-Reactive Protein 18.20 mg/dL (0.00-1.30) H 02/17/20 16:28 NT-Pro-B Natriuret Pep 1980 pg/mL (0-900) H 02/17/20 16:28 Total Protein 5.4 g/dL (6.3-8.2) L 02/17/20 16:28 Albumin 2.3 g/dL (3.9-5) L 02/17/20 16:28 Albumin/Globulin Ratio 0.7 % 02/17/20 16:28 Triglycerides 164 mg/dL (2-149) H 02/18/20 10:10 Cholesterol 133 mg/dL (50-199) 02/18/20 10:10 LDL Cholesterol Direct 71 mg/dL (50-130) 02/18/20 10:10 HDL Cholesterol 38 mg/dL (40-59) L 02/18/20 10:10 Cholesterol/HDL Ratio 3.50 % 02/18/20 10:10 Procalcitonin 6.74 ng/mL (<0.15) 02/17/20 16:28 TSH 3.490 mlU/mL (0.270-4.200) 02/17/20 16:28 Urine Color Yellow (Yellow) 02/17/20 Unknown Urine Turbidity Slightly-cloudy (Clear) 02/17/20 Unknown Urine pH 5.0 (5.0-7.0) 02/17/20 Unknown Ur Specific [place] 1.010 (1.003-1.030) 02/17/20 Unknown Urine Protein 30 mg/dl mg/dL (Negative) 02/17/20 Unknown Urine Glucose (UA) Neg mg/dL (Negative) 02/17/20 Unknown Urine Ketones Neg mg/dL (Negative) 02/17/20 Unknown Urine Blood Mod (Negative) 02/17/20 Unknown Urine Nitrite Neg (Negative) 02/17/20 Unknown Urine Bilirubin Neg (Negative) 02/17/20 Unknown Urine Urobilinogen < 2.0 mg/dL (<2.0) 02/17/20 Unknown Ur Leukocyte Esterase Mod (Negative) 02/17/20 Unknown Urine WBC (Auto) 17.0 /HPF (0.0-6.0) H 02/17/20 Unknown Urine RBC (Auto) 17.0 /HPF (0.0-6.0) 02/17/20 Unknown U Epithel Cells (Auto) 4.0 /HPF (0-13.0) 02/17/20 Unknown Urine Bacteria (Auto) 1+ /HPF (Negative) 02/17/20 Unknown Urine Yeast (Budding) 2+ /HPF 02/17/20 Unknown Urine Eosinophils None seen (None Seen) 02/18/20 17:40 Urine Creatinine 35.2 mg/dL (0.1-20.0) H 02/18/20 17:40 Urine Microalbumin 5.9 mg/dL (0.1-34.0) 02/18/20 17:40 Microalb/Creat Ratio 167.6 ug/mg 02/18/20 17:40 Urine Sodium 104 mmol/L 02/18/20 17:40 Urine Chloride 81.0 mmolL (110-250) L 02/18/20 17:40 Urine Total Protein 38 mg/dL (5-11.8) H 02/18/20 17:40 Nasal Screen MRSA (PCR) Positive (Negative) 02/18/20 17:40 Random Vancomycin 14.6 ug/mL (0-40.0) 02/19/20 09:10 Coronavirus (PCR) Negative (Negative) 02/18/20 Unknown Microbiology: Microbiology 02/17/20 16:28 Peripheral/Venous Blood Culture - Preliminary NO GROWTH AFTER 72 HOURS 02/17/20 16:28 Peripheral/Venous Blood Culture - Preliminary NO GROWTH AFTER 72 HOURS 02/17/20 Unknown Urine,Clean Catch Urine Culture - Final Yin/IV: Voiding Method Indwelling Catheter IV Catheter Type [Right Triple Lumen Cath Femoral] IV Catheter Type [Right INT / Saline Lock Antecubital] Active Medications - Current Medications Current Medications: Generic Name Dose Route Start Last Admin Trade Name Freq PRN Reason Stop Dose Admin Aspirin 81 mg 02/18/20 10:00 02/20/20 09:25 Baby Aspirin PO 81 mg DAILY LOS Administration Atorvastatin Calcium 20 mg 02/18/20 22:00 02/20/20 23:13 Lipitor PO 20 mg QHS LOS Administration Dextrose 50 ml 02/18/20 12:55 D50w (25gm) Syringe IV Q30MIN PRN Hypoglycemia Protocol Docusate Sodium 100 mg 02/20/20 12:00 02/20/20 23:13 Colace PO 100 mg BID LOS Administration Enoxaparin Sodium 90 mg 02/21/20 10:00 Enoxaparin SUB-Q QDAY LOS Famotidine 20 mg 02/18/20 10:00 02/20/20 09:25 Pepcid IV 20 mg DAILY LOS Administration Hydrophilic Ointment 1 applic 02/17/20 15:12 Vaseline Lip Therapy TP Q2HR PRN Dry Lips Norepinephrine 4 mg in 250 mls @ 7.5 mls/hr 02/17/20 20:00 02/21/20 08:53 Levophed Drip 4 Mg/Ns 250 Ml IV 2 mcg/min TITR LOS 7.5 mls/hr Titration Protocol 2 MCG/MIN Cefepime HCl 2 gm in 100 mls @ 200 mls/hr 02/18/20 09:00 02/20/20 09:25 Cefepime/Ns 2 Gm/100 Ml IV 200 mls/hr Q24HR LOS Administration Protocol Vasopressin 20 unit/ Sodium 101 mls @ 9.09 mls/hr 02/18/20 10:00 02/21/20 03:27 Chloride IV 0.03 units/min TITR LOS 9.09 mls/hr Administration Protocol 0.03 UNITS/MIN Sodium Bicarbonate 150 meq/ 1,150 mls @ 75 mls/hr 02/18/20 13:00 02/21/20 02:54 Dextrose IV 75 mls/hr DIRECT LOS Administration Insulin Human Regular 0 unit 02/18/20 13:00 02/21/20 06:37 Humulin R SUB-Q Not Given Q6HR LOS Protocol Magnesium Hydroxide 30 ml 02/18/20 02:31 Milk Of Magnesia PO Q4H PRN Constipation Multi-Ingred Cream/Lotion/Oil/Oint 1 applic 02/17/20 15:12 02/19/20 04:25 Artificial Tears Ophth Oint OU 1 applic Q4HR PRN Administration Dry Eye(s) Sodium Chloride 10 ml 02/18/20 10:00 02/20/20 23:13 Sodium Chloride Flush Syringe 10 Ml IV 10 ml BID LOS Administration Sodium Chloride 10 ml 02/18/20 02:31 Sodium Chloride Flush Syringe 10 Ml IV PRN PRN LINE FLUSH Nutrition/Malnutrition Assess - Dietary Evaluation Nutrition/Malnutrition Findings: Nutrition Notes Start: 02/18/20 10:34 Freq: Status: Active Protocol: Document 02/18/20 10:34 LP (Rec: 02/18/20 10:40 LP [id number]) Nutrition Notes Need for Assessment generated from: MD Order Initial or Follow up Assessment Current Diagnosis CKD(stage I-IV),Diabetes, Sepsis,Hypertension,Stroke Other Pertinent Diagnosis Dementia, UTI Current Diet Cardiac Labs/Tests 02/17/20 Na 136 K 5.4 BUN 91 Cr 3.7 BG 120 Pertinent Medications Levophed Height 6 ft Weight 86.1 kg [place] Body Weight (kg) 80.90 BMI 25.7 Weight Status Overweight Subjective/Other Information Consult for diet education and evaluate nutrition intakes. Pt on vent and not appropriate for diet education. Burn Absent Trauma Absent GI Symptoms None Current % PO Negligible Minimum of two criteria No physical signs of malnutrition #1 Nutrition Diagnosis Inadequate oral intake Etiology ARF As Evidenced by Signs and Symptoms Pt on vent and unable to consume PO Is patient on ventilator? Yes Is Patient Ambulatory and/or Out of Bed No REE-([facility]-confined to bed) 6499.962 Calculation Used for Recommendations [facility] Additional Notes Protein needs are 103-172g (1. 2-2g/kg) Fluid needs are 1ml/kcal Nutrition Intervention Change Diet Order: TF consult or extubation Nutrition Support: once consulted Nepro at 45ml/ hr Flush with 200ml q4h Kcal 1,944 Protein (gm) 87 Fluid (mL) 785 Goal #1 TF consult or extubation Anticipated Discharge Needs: Unable to determine at this time Follow-Up By: 02/21/20 Additional Comments Follow for TF consult or extubation
[2020-02-21] MEDS: CEFEPIME/NS 2 GM/100 ML 2 GM/100 ML BAG IV SCH (09:33)
[2020-02-21] MEDS: DOCUSATE SODIUM 100 MG/10 ML ORAL LIQD PO SCH ×2 (09:34→21:36)
[2020-02-21] MEDS: FAMOTIDINE 20 MG/2 ML INJ IV SCH (09:34)
[2020-02-21] MEDS: ASPIRIN 81 MG TAB CHEW PO SCH (09:34)
[2020-02-21] MEDS ORDERED: SODIUM CHLORIDE 0.9% 500 ML 500 ML IV NR (09:52)
[2020-02-21] MEDS ORDERED: ENOXAPARIN 100 MG/1 ML INJ SUB-Q SCH (10:00)
--- NOTE | 2020-02-21 10:51 | Progress Note ---
Assessment and Plan 74 y/o male with known dementia, mumbles very few words at baseline if any, blank stares, admitted with altered mental status, respiratory failure, worsening renal failure and sepsis with shock 1. Pulm-extubated on nasal cannula. Ordered NT suction qshift. 2. CV- Still hypotensive. Have begged blood bank for 2 units given patient r equiring 2 vasopressors and is still hypotensive. EF is 45% but does not appear volume overloaded. Likely needs adequate resuscitation which would include blood transfusions to help with this process. Doubt he is a candidate for inotropic therapy but will defer to cards. If he does not respond to this, will consider Midodrine 3. Renal- Improving today. Appreciate renal help, reviewed their note. 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 Not for COVID CCT 31 minutes. Subjective Date of service: 02/21/20 Principal diagnosis: Septic Shock Interval history: No acute events. Still on vasopressors of levo and vaso. HgB is 6.9 and MAPs are in the low 60's. Awake, remains on nasal cannula and no respiratory issues. Objective Vital Signs - 12hr 02/20/20 02/20/20 02/20/20 23:00 23:12 23:16 Temperature Pulse Rate 92 H 90 91 H Pulse Rate [ From Monitor] Respiratory 15 20 16 Rate Blood Pressure 94/47 94/47 99/67 O2 Sat by Pulse 98 99 98 Oximetry 02/20/20 02/20/20 02/20/20 23:18 23:30 23:45 Temperature 97.8 F Pulse Rate 88 87 Pulse Rate [ From Monitor] Respiratory 16 17 Rate Blood Pressure 98/62 100/63 O2 Sat by Pulse 99 100 Oximetry 02/21/20 02/21/20 02/21/20 00:00 00:15 00:30 Temperature Pulse Rate 66 66 91 H Pulse Rate [ 93 H From Monitor] Respiratory 16 17 15 Rate Blood Pressure 97/55 87/49 93/61 O2 Sat by Pulse 98 98 99 Oximetry 02/21/20 02/21/20 02/21/20 00:45 01:00 01:15 Temperature Pulse Rate 65 77 87 Pulse Rate [ From Monitor] Respiratory 17 15 13 Rate Blood Pressure 103/55 96/55 96/60 O2 Sat by Pulse 99 96 Oximetry 02/21/20 02/21/20 02/21/20 01:30 01:45 02:00 Temperature Pulse Rate 91 H 64 88 Pulse Rate [ From Monitor] Respiratory 16 16 17 Rate Blood Pressure 100/60 98/52 98/56 O2 Sat by Pulse 98 97 97 Oximetry 02/21/20 02/21/20 02/21/20 02:15 02:30 02:45 Temperature Pulse Rate 63 85 62 Pulse Rate [ From Monitor] Respiratory 16 17 16 Rate Blood Pressure 85/54 100/58 91/50 O2 Sat by Pulse 98 98 97 Oximetry 02/21/20 02/21/20 02/21/20 03:00 03:15 03:30 Temperature 98.4 F Pulse Rate 72 73 80 Pulse Rate [ From Monitor] Respiratory 18 17 15 Rate Blood Pressure 93/50 99/53 93/60 O2 Sat by Pulse 97 96 99 Oximetry 02/21/20 02/21/20 02/21/20 03:45 04:00 04:15 Temperature Pulse Rate 93 H 86 89 Pulse Rate [ From Monitor] Respiratory 17 17 19 Rate Blood Pressure 105/54 97/56 101/54 O2 Sat by Pulse 98 98 97 Oximetry 02/21/20 02/21/20 02/21/20 04:30 04:46 05:00 Temperature Pulse Rate 90 95 H 89 Pulse Rate [ 90 From Monitor] Respiratory 15 19 15 Rate Blood Pressure 100/58 105/54 O2 Sat by Pulse 99 98 98 Oximetry 02/21/20 02/21/20 02/21/20 05:16 05:30 05:46 Temperature Pulse Rate 67 92 H 90 Pulse Rate [ From Monitor] Respiratory 18 14 17 Rate Blood Pressure 121/81 125/83 94/55 O2 Sat by Pulse 98 98 98 Oximetry 02/21/20 02/21/20 02/21/20 06:00 06:15 06:30 Temperature Pulse Rate 88 76 88 Pulse Rate [ From Monitor] Respiratory 15 22 16 Rate Blood Pressure 75/60 108/72 122/68 O2 Sat by Pulse 97 97 97 Oximetry 02/21/20 02/21/20 02/21/20 06:45 07:00 07:16 Temperature Pulse Rate 95 H 94 H 89 Pulse Rate [ From Monitor] Respiratory 19 18 22 Rate Blood Pressure 129/59 95/73 95/73 O2 Sat by Pulse 96 96 97 Oximetry 02/21/20 02/21/20 02/21/20 07:30 07:46 08:00 Temperature 97.4 F L Pulse Rate 89 85 92 H Pulse Rate [ From Monitor] Respiratory 22 22 24 Rate Blood Pressure 99/69 128/71 135/88 O2 Sat by Pulse 96 96 95 Oximetry 02/21/20 02/21/20 02/21/20 08:16 08:30 08:37 Temperature Pulse Rate 92 H 89 Pulse Rate [ From Monitor] Respiratory 23 22 Rate Blood Pressure 135/88 135/88 O2 Sat by Pulse 99 98 99 Oximetry 02/21/20 02/21/20 08:46 09:00 Temperature Pulse Rate 70 Pulse Rate [ From Monitor] Respiratory 23 Rate Blood Pressure 65/47 90/54 O2 Sat by Pulse 98 98 Oximetry Constitutional: appears uncomfortable, other (moving but not purposeful) ENT: other (orally intubated critically ill on vent) Neck: supple Effort: mildly labored Ascultation: Bilateral: clear, diminished breath sounds Percussion: Bilateral: not dull Cardiovascular: other (sinus tachycardia) Neurologic: unable to assess CBC and BMP: 02/21/20 04:39 02/21/20 04:39 ABG, PT/INR, D-dimer: ABG ABG pH 7.355 pH Units (7.350-7.450) 02/19/20 05:08 ABG pCO2 27.3 mm Hg 02/19/20 05:08 ABG pO2 168.2 mm Hg (80.0-90.0) H 02/19/20 05:08 ABG O2 Saturation 99.0 % (95.0-99.0) 02/19/20 05:08 PT/INR, D-dimer PT 18.6 Sec. (12.2-14.9) H 02/19/20 03:20 INR 1.53 (0.87-1.13) H 02/19/20 03:20 D-Dimer 1327.30 ng/mlDDU (0-234) H 02/20/20 17:20 Abnormal lab findings: Abnormal Labs 02/17/20 02/17/20 02/17/20 16:28 16:28 16:28 WBC 23.5 H RBC 3.07 L Hgb 9.1 L Hct 28.4 L RDW 16.8 H Plt Count Lymph % (Auto) Rock # Seg Neutrophils % Seg Neuts % (Manual) 84.0 H Lymphocytes % (Manual) 8.0 L Monocytes % (Manual) 8.0 H Seg Neutrophils # Seg Neutrophils # Man 19.7 H Monocytes # (Manual) 1.9 H PT 15.3 H INR 1.19 H D-Dimer Heparin Anti-Xa Level ABG pH ABG pO2 ABG HCO3 ABG O2 Saturation ABG Base Excess ABG Hemoglobin Sodium 136 L Potassium 5.4 H Chloride Carbon Dioxide 15 L BUN 91 H Creatinine 3.7 H D Glucose 120 H POC Glucose Lactic Acid Calcium 7.9 L Ferritin AST 65 H ALT 81 H Lactate Dehydrogenase Total Creatine Kinase CK-MB (CK-2) Troponin T C-Reactive Protein NT-Pro-B Natriuret Pep Total Protein 5.4 L Albumin 2.3 L Triglycerides HDL Cholesterol Urine WBC (Auto) Urine Creatinine Urine Chloride Urine Total Protein 02/17/20 02/17/20 02/17/20 16:28 16:28 16:28 WBC RBC Hgb Hct RDW Plt Count Lymph % (Auto) Rock # Seg Neutrophils % Seg Neuts % (Manual) Lymphocytes % (Manual) Monocytes % (Manual) Seg Neutrophils # Seg Neutrophils # Man Monocytes # (Manual) PT INR D-Dimer > 75053 H Heparin Anti-Xa Level ABG pH ABG pO2 ABG HCO3 ABG O2 Saturation ABG Base Excess ABG Hemoglobin Sodium Potassium Chloride Carbon Dioxide BUN Creatinine Glucose POC Glucose Lactic Acid 2.70 H* Calcium Ferritin AST ALT Lactate Dehydrogenase Total Creatine Kinase CK-MB (CK-2) Troponin T 0.748 H* C-Reactive Protein NT-Pro-B Natriuret Pep 1980 H Total Protein Albumin Triglycerides HDL Cholesterol Urine WBC (Auto) Urine Creatinine Urine Chloride Urine Total Protein 02/17/20 02/17/20 02/17/20 16:28 16:28 18:35 WBC RBC Hgb Hct RDW Plt Count Lymph % (Auto) Rock # Seg Neutrophils % Seg Neuts % (Manual) Lymphocytes % (Manual) Monocytes % (Manual) Seg Neutrophils # Seg Neutrophils # Man Monocytes # (Manual) PT INR D-Dimer Heparin Anti-Xa Level ABG pH 7.303 L ABG pO2 327.3 H ABG HCO3 12.5 L ABG O2 Saturation 99.5 H ABG Base Excess -12.3 L ABG Hemoglobin 11.2 L Sodium Potassium Chloride Carbon Dioxide BUN Creatinine Glucose POC Glucose Lactic Acid Calcium Ferritin 1191.0 H AST ALT Lactate Dehydrogenase 381 H Total Creatine Kinase CK-MB (CK-2) Troponin T C-Reactive Protein 18.20 H NT-Pro-B Natriuret Pep Total Protein Albumin Triglycerides HDL Cholesterol Urine WBC (Auto) Urine Creatinine Urine Chloride Urine Total Protein 02/17/20 02/18/20 02/18/20 Unknown 05:20 10:10 WBC RBC Hgb Hct RDW Plt Count Lymph % (Auto) Rock # Seg Neutrophils % Seg Neuts % (Manual) Lymphocytes % (Manual) Monocytes % (Manual) Seg Neutrophils # Seg Neutrophils # Man Monocytes # (Manual) PT INR D-Dimer Heparin Anti-Xa Level ABG pH 7.217 L ABG pO2 165.7 H ABG HCO3 10.5 L ABG O2 Saturation ABG Base Excess -15.7 L ABG Hemoglobin 10.3 L Sodium Potassium Chloride Carbon Dioxide BUN Creatinine Glucose POC Glucose Lactic Acid Calcium Ferritin AST ALT Lactate Dehydrogenase Total Creatine Kinase 5660 H CK-MB (CK-2) 78.0 H Troponin T 1.030 H* D C-Reactive Protein NT-Pro-B Natriuret Pep Total Protein Albumin Triglycerides 164 H HDL Cholesterol 38 L Urine WBC (Auto) 17.0 H Urine Creatinine Urine Chloride Urine Total Protein 02/18/20 02/18/20 02/18/20 12:14 17:32 17:40 WBC RBC Hgb Hct RDW Plt Count Lymph % (Auto) Rock # Seg Neutrophils % Seg Neuts % (Manual) Lymphocytes % (Manual) Monocytes % (Manual) Seg Neutrophils # Seg Neutrophils # Man Monocytes # (Manual) PT INR D-Dimer Heparin Anti-Xa Level ABG pH ABG pO2 ABG HCO3 ABG O2 Saturation ABG Base Excess ABG Hemoglobin Sodium Potassium Chloride Carbon Dioxide BUN Creatinine Glucose POC Glucose 193 H 191 H Lactic Acid Calcium Ferritin AST ALT Lactate Dehydrogenase Total Creatine Kinase CK-MB (CK-2) Troponin T C-Reactive Protein NT-Pro-B Natriuret Pep Total Protein Albumin Triglycerides HDL Cholesterol Urine WBC (Auto) Urine Creatinine 35.2 H Urine Chloride 81.0 L Urine Total Protein 38 H 02/18/20 02/19/20 02/19/20 17:40 00:04 01:50 WBC RBC Hgb Hct RDW Plt Count Lymph % (Auto) Rock # Seg Neutrophils % Seg Neuts % (Manual) Lymphocytes % (Manual) Monocytes % (Manual) Seg Neutrophils # Seg Neutrophils # Man Monocytes # (Manual) PT INR D-Dimer Heparin Anti-Xa Level 0.18 L ABG pH ABG pO2 ABG HCO3 ABG O2 Saturation ABG Base Excess ABG Hemoglobin Sodium Potassium Chloride 111.4 H Carbon Dioxide 11 L BUN 77 H Creatinine 2.8 H Glucose 168 H POC Glucose 145 H Lactic Acid Calcium 7.2 L Ferritin AST ALT Lactate Dehydrogenase Total Creatine Kinase CK-MB (CK-2) Troponin T C-Reactive Protein NT-Pro-B Natriuret Pep Total Protein Albumin Triglycerides HDL Cholesterol Urine WBC (Auto) Urine Creatinine Urine Chloride Urine Total Protein 02/19/20 02/19/20 02/19/20 03:20 04:00 05:08 WBC 17.6 H RBC 2.76 L Hgb 8.1 L Hct 25.0 L RDW 16.6 H Plt Count Lymph % (Auto) 10.5 L Rock # 1.2 H Seg Neutrophils % 82.1 H Seg Neuts % (Manual) Lymphocytes % (Manual) Monocytes % (Manual) Seg Neutrophils # 14.5 H Seg Neutrophils # Man Monocytes # (Manual) PT 18.6 H INR 1.53 H D-Dimer Heparin Anti-Xa Level ABG pH ABG pO2 168.2 H ABG HCO3 14.9 L ABG O2 Saturation ABG Base Excess -9.5 L ABG Hemoglobin 8.3 L Sodium Potassium Chloride Carbon Dioxide BUN Creatinine Glucose POC Glucose Lactic Acid Calcium Ferritin AST ALT Lactate Dehydrogenase Total Creatine Kinase CK-MB (CK-2) Troponin T C-Reactive Protein NT-Pro-B Natriuret Pep Total Protein Albumin Triglycerides HDL Cholesterol Urine WBC (Auto) Urine Creatinine Urine Chloride Urine Total Protein 02/19/20 02/19/20 02/19/20 05:38 05:50 09:10 WBC RBC Hgb Hct RDW Plt Count Lymph % (Auto) Rock # Seg Neutrophils % Seg Neuts % (Manual) Lymphocytes % (Manual) Monocytes % (Manual) Seg Neutrophils # Seg Neutrophils # Man Monocytes # (Manual) PT INR D-Dimer Heparin Anti-Xa Level ABG pH ABG pO2 ABG HCO3 ABG O2 Saturation ABG Base Excess ABG Hemoglobin Sodium Potassium Chloride 111.6 H 111.9 H Carbon Dioxide 14 L 15 L BUN 69 H 68 H Creatinine 2.6 H 2.5 H Glucose 151 H 154 H POC Glucose 143 H Lactic Acid Calcium 7.4 L 7.2 L Ferritin AST ALT Lactate Dehydrogenase Total Creatine Kinase 3552 H CK-MB (CK-2) Troponin T C-Reactive Protein NT-Pro-B Natriuret Pep Total Protein Albumin Triglycerides HDL Cholesterol Urine WBC (Auto) Urine Creatinine Urine Chloride Urine Total Protein 02/19/20 02/19/20 02/19/20 11:41 12:00 17:46 WBC RBC Hgb Hct RDW Plt Count Lymph % (Auto) Rock # Seg Neutrophils % Seg Neuts % (Manual) Lymphocytes % (Manual) Monocytes % (Manual) Seg Neutrophils # Seg Neutrophils # Man Monocytes # (Manual) PT INR D-Dimer Heparin Anti-Xa Level 0.11 L ABG pH ABG pO2 ABG HCO3 ABG O2 Saturation ABG Base Excess ABG Hemoglobin Sodium Potassium Chloride Carbon Dioxide BUN Creatinine Glucose POC Glucose 160 H 133 H Lactic Acid Calcium Ferritin AST ALT Lactate Dehydrogenase Total Creatine Kinase CK-MB (CK-2) Troponin T C-Reactive Protein NT-Pro-B Natriuret Pep Total Protein Albumin Triglycerides HDL Cholesterol Urine WBC (Auto) Urine Creatinine Urine Chloride Urine Total Protein 02/19/20 02/19/20 02/20/20 20:02 23:50 04:44 WBC RBC 2.64 L Hgb 7.9 L Hct 24.1 L RDW 16.3 H Plt Count 137 L Lymph % (Auto) Rock # Seg Neutrophils % Seg Neuts % (Manual) Lymphocytes % (Manual) Monocytes % (Manual) Seg Neutrophils # Seg Neutrophils # Man Monocytes # (Manual) PT INR D-Dimer Heparin Anti-Xa Level 0.12 L ABG pH ABG pO2 ABG HCO3 ABG O2 Saturation ABG Base Excess ABG Hemoglobin Sodium Potassium Chloride Carbon Dioxide BUN Creatinine Glucose POC Glucose 128 H Lactic Acid Calcium Ferritin AST ALT Lactate Dehydrogenase Total Creatine Kinase CK-MB (CK-2) Troponin T C-Reactive Protein NT-Pro-B Natriuret Pep Total Protein Albumin Triglycerides HDL Cholesterol Urine WBC (Auto) Urine Creatinine Urine Chloride Urine Total Protein 02/20/20 02/20/20 02/20/20 04:44 04:44 10:00 WBC RBC Hgb Hct RDW Plt Count Lymph % (Auto) Rock # Seg Neutrophils % Seg Neuts % (Manual) Lymphocytes % (Manual) Monocytes % (Manual) Seg Neutrophils # Seg Neutrophils # Man Monocytes # (Manual) PT INR D-Dimer Heparin Anti-Xa Level 0.15 L < 0.10 L ABG pH ABG pO2 ABG HCO3 ABG O2 Saturation ABG Base Excess ABG Hemoglobin Sodium Potassium Chloride 110.4 H Carbon Dioxide 19 L BUN 61 H Creatinine 2.4 H Glucose POC Glucose Lactic Acid Calcium 7.3 L Ferritin AST ALT Lactate Dehydrogenase Total Creatine Kinase 2238 H CK-MB (CK-2) Troponin T C-Reactive Protein NT-Pro-B Natriuret Pep Total Protein Albumin Triglycerides HDL Cholesterol Urine WBC (Auto) Urine Creatinine Urine Chloride Urine Total Protein 02/20/20 02/20/20 02/20/20 12:58 17:20 17:20 WBC RBC Hgb Hct RDW Plt Count Lymph % (Auto) Rock # Seg Neutrophils % Seg Neuts % (Manual) Lymphocytes % (Manual) Monocytes % (Manual) Seg Neutrophils # Seg Neutrophils # Man Monocytes # (Manual) PT INR D-Dimer 1327.30 H Heparin Anti-Xa Level 0.17 L ABG pH ABG pO2 ABG HCO3 ABG O2 Saturation ABG Base Excess ABG Hemoglobin Sodium Potassium Chloride Carbon Dioxide BUN Creatinine Glucose POC Glucose 123 H Lactic Acid Calcium Ferritin AST ALT Lactate Dehydrogenase Total Creatine Kinase CK-MB (CK-2) Troponin T C-Reactive Protein NT-Pro-B Natriuret Pep Total Protein Albumin Triglycerides HDL Cholesterol Urine WBC (Auto) Urine Creatinine Urine Chloride Urine Total Protein 02/20/20 02/20/20 02/20/20 17:20 18:11 23:52 WBC RBC Hgb Hct RDW Plt Count Lymph % (Auto) Rock # Seg Neutrophils % Seg Neuts % (Manual) Lymphocytes % (Manual) Monocytes % (Manual) Seg Neutrophils # Seg Neutrophils # Man Monocytes # (Manual) PT INR D-Dimer Heparin Anti-Xa Level ABG pH ABG pO2 ABG HCO3 ABG O2 Saturation ABG Base Excess ABG Hemoglobin Sodium Potassium Chloride Carbon Dioxide BUN Creatinine Glucose POC Glucose 156 H 153 H Lactic Acid Calcium Ferritin AST ALT Lactate Dehydrogenase Total Creatine Kinase CK-MB (CK-2) Troponin T 0.573 H* D C-Reactive Protein NT-Pro-B Natriuret Pep Total Protein Albumin Triglycerides HDL Cholesterol Urine WBC (Auto) Urine Creatinine Urine Chloride Urine Total Protein 02/21/20 02/21/20 02/21/20 04:39 04:39 05:12 WBC RBC 2.35 L Hgb 6.9 L Hct 21.1 L RDW 16.2 H Plt Count 126 L Lymph % (Auto) Rock # Seg Neutrophils % Seg Neuts % (Manual) Lymphocytes % (Manual) Monocytes % (Manual) Seg Neutrophils # Seg Neutrophils # Man Monocytes # (Manual) PT INR D-Dimer Heparin Anti-Xa Level ABG pH ABG pO2 ABG HCO3 ABG O2 Saturation ABG Base Excess ABG Hemoglobin Sodium Potassium Chloride Carbon Dioxide BUN 54 H Creatinine 2.2 H Glucose 120 H POC Glucose 139 H Lactic Acid Calcium 6.8 L Ferritin AST ALT Lactate Dehydrogenase Total Creatine Kinase 1488 H CK-MB (CK-2) Troponin T C-Reactive Protein NT-Pro-B Natriuret Pep Total Protein Albumin Triglycerides HDL Cholesterol Urine WBC (Auto) Urine Creatinine Urine Chloride Urine Total Protein
[2020-02-21] MEDS ORDERED: SIMPLE SYRUP 15 ML FEEDTUBE PRN ×2 (12:12)
[2020-02-21] MEDS ORDERED: SODIUM BICARBONATE 325 MG TAB FEEDTUBE PRN (12:12)
[2020-02-21] MEDS ORDERED: LIPASE 10,500/PROTEASE 25,000/AMYLASE 43,750 (UNITS) DR CAP FEEDTUBE PRN (12:12)
--- NOTE | 2020-02-21 12:55 | Progress Note ---
Assessment and Plan tte reviewed - EF 45-50%, impaired relaxation, mild pulm HTN RVSP 40mmHg. Suspect NSTEMI type II in the setting of septic shock/acute resp fail/AMMY. Severe anemia noted and thrombocytopenia noted, heparin gtt d/c'd. DDimer significantly elevated - V/Q scan low prob for PE. Wean pressors as tolerated. Prognosis remains guarded. Pt seen in conjunction with Dr. Kat Garay who agrees with the assessment and plan of care. - Patient Problems (1) Acute respiratory failure Current Visit: Yes Status: Acute (2) Bilateral pneumonia Current Visit: Yes Status: Acute (3) Septic shock Current Visit: Yes Status: Acute (4) Acute kidney injury superimposed on CKD Current Visit: Yes Status: Acute (5) Anemia Current Visit: Yes Status: Acute (6) Elevated d-dimer Current Visit: Yes Status: Acute (7) NSTEMI (non-ST elevated myocardial infarction) Current Visit: Yes Status: Acute (8) HTN (hypertension) Current Visit: No Status: Chronic Qualifiers: Hypertension type: essential hypertension Qualified Code(s): I10 - Essential (primary) hypertension (9) HLD (hyperlipidemia) Current Visit: Yes Status: Chronic Qualifiers: Hyperlipidemia type: mixed hyperlipidemia Qualified Code(s): E78.2 - Mixed hyperlipidemia (10) DM2 (diabetes mellitus, type 2) Current Visit: Yes Status: Chronic (11) PVD (peripheral vascular disease) Current Visit: Yes Status: Chronic (12) H/O: CVA (cerebrovascular accident) Current Visit: Yes Status: Chronic (13) Thrombocytopenia Current Visit: Yes Status: Acute Subjective Date of service: 02/21/20 Principal diagnosis: Septic Shock Interval history: pt extubated, resting in bed. in SR on tele HR 100s. on vasopressors. Objective Last Vital Signs Temp 97.7 F 02/21/20 12:00 Pulse 99 H 02/21/20 11:00 Resp 20 02/21/20 11:00 BP 77/54 02/21/20 11:00 Pulse Ox 99 02/21/20 11:00 - Physical Examination General: No Apparent Distress HEENT: Positive: Normocephaly Neck: Negative: JVD/HJR Cardiac: Positive: Reg Rate and Rhythm, S1/S2 Lungs: Positive: Decreased Breath Sounds, Oxygen, Ventilated Respirations Neuro: Positive: Other (intubated/sedated) Abdomen: Positive: Soft, Active Bowel Sounds Skin: Negative: Rash Musculoskeletal: No Fluid Collection Extremities: Present: upper extr. pulses, lower extr. pulses. Absent: edema - Labs and Meds CBC 02/21/20 Range/Units 04:39 WBC 7.4 (4.5-11.0) K/mm3 RBC 2.35 L (3.65-5.03) M/mm3 Hgb 6.9 L (11.8-15.2) gm/dl Hct 21.1 L (35.5-45.6) % Plt Count 126 L (140-440) K/mm3 Comprehensive Metabolic Panel 02/21/20 Range/Units 04:39 Sodium 142 (137-145) mmol/L Potassium 3.8 (3.6-5.0) mmol/L Chloride 105.3 (98-107) mmol/L Carbon Dioxide 23 (22-30) mmol/L BUN 54 H (9-20) mg/dL Creatinine 2.2 H (0.8-1.3) mg/dL Glucose 120 H (75-100) mg/dL Calcium 6.8 L (8.4-10.2) mg/dL - Imaging and Cardiology EKG: report reviewed, image reviewed Echo: report reviewed - Telemetry EKG Rhythm: Sinus Rhythm - EKG Sinus rhythms and dysrhythmias: sinus rhythm
--- NOTE | 2020-02-21 15:28 | Vascular Lab Report ---
DUPLEX DOPPLER LOWER EXTREMITY VEINS, BILATERAL INDICATION / CLINICAL INFORMATION: Elevated D-dimers, evaluate for DVT. TECHNIQUE: Duplex doppler imaging was performed through the veins of both lower extremities using venous wilmer christina and other maneuvers. COMPARISON: None available. FINDINGS: RIGHT COMMON FEMORAL VEIN: Negative. RIGHT FEMORAL VEIN: Negative. RIGHT POPLITEAL VEIN: Negative. RIGHT CALF VEINS: Negative. LEFT COMMON FEMORAL VEIN: Negative. LEFT FEMORAL VEIN: Negative. LEFT POPLITEAL VEIN: Negative. LEFT CALF VEINS: Negative. ADDITIONAL FINDINGS: None. IMPRESSION: No sonographic evidence for DVT in either lower extremity. Signer Name: Alexandre Tovar MD Signed: 02/21/2020 3:24 PM Workstation Name: [id number]
--- NOTE | 2020-02-21 16:07 | Progress Note ---
Assessment and Plan Cultures: Coronavirus PCR 02/05/2020: Negative Coronavirus PCR 02/10/2020: Negative Coronavirus PCR 02/18/2020: Negative MRSA nasal PCR 02/05/2020: Positive 02/04/2020 blood culture: No growth 02/04/2020 tracheal aspirate: Proteus, Hemophilus, MRSA 02/14/2020 blood culture: No growth 02/17/2020 tracheal aspirate: normal resp demetrius 02/17/2020 blood culture: No growth today A/P: 74 y/o male with history of CVA with left hemiparesis, diabetes mellitus, hypertension, dyslipidemia, dementia and peripheral vascular disease, from [facility], recent COVID, admitted on due to AMS and low O2 sats: #Severe sepsis with septic shock: on 2 pressors, elevated lactate; source likely pneumonia/suspect PE post COVID. #Bilateral pneumonia: likely bacterial pneumonia. COVID markers elevated Charmaine tin 1191. Ddmer >10,000. CRP 18. LDH 381. Recent sputum cx with PMDR Proteus, MRSA. H flu. MRSA PCR positive. Elevated procal however possible due to renal failure #Acute resp failure: intubated. Very high ddimer suspect PE post COVID. #Elevated LFTs: from sepsis #AMMY on CKD: renally adjusted meds, required HD during previous admission Recs: -Continue cefepime and vancomycin renally adjusted. Plan on 8 days of antibiotics. -Agree with full anticoagulation -When stable VQ scan or chest CTA if creat better High risk mortality / guarded prognosis consider palliative care Edel Saenz MD [facility] M: [phone] O: [phone] F: [phone] Subjective Date of service: 02/21/20 Principal diagnosis: Septic Shock Interval history: Now extubated, afebrile. Normal white count. Remains on pressors. Objective - Exam Narrative Exam: Constitutional: Extubated on nasal cannula Head, Ears, Nose: Normocephalic, atraumatic. External ears, nose normal Oral: Limited Eyes: Conjunctivae/corneas clear. No icterus. No ptosis. Neck: limited Cardiovascular: tachy Respiratory: limited GI: limited Musculoskeletal: limited Skin: limited Hem/Lymphatic: limited Psych: limited Neurological: limited - Constitutional Vitals: Vital Signs Temp Pulse Resp BP Pulse Ox 98.3 F 91 H 25 H 123/75 98 02/21/20 15:35 02/21/20 15:45 02/21/20 15:45 02/21/20 15:45 02/21/20 15:45 Temperature -Last 24 Hours Temperature 98.3 F Temperature 98.2 F Temperature 98.2 F Temperature 98.3 F Temperature 98.6 F Temperature 98.6 F Temperature 97.7 F Temperature 97.4 F Temperature 98.4 F Temperature 97.8 F Temperature 98.1 F - Labs CBC & Chem 7: 02/21/20 04:39 02/21/20 04:39 Labs: Abnormal lab results 02/20/20 02/20/20 02/20/20 Range/Units 12:58 17:20 17:20 RBC (3.65-5.03) M/mm3 Hgb (11.8-15.2) gm/dl Hct (35.5-45.6) % RDW (13.2-15.2) % Plt Count (140-440) K/mm3 D-Dimer 1327.30 H (0-234) ng/mlDDU Heparin Anti-Xa Level 0.17 L (0.3-0.7) U.I./ml BUN (9-20) mg/dL Creatinine (0.8-1.3) mg/dL Glucose (75-100) mg/dL POC Glucose 123 H (70-105) Calcium (8.4-10.2) mg/dL Total Creatine Kinase (55-170) units/L Troponin T (0.00-0.029) ng/mL Crossmatch 02/20/20 02/20/20 02/20/20 Range/Units 17:20 18:11 23:52 RBC (3.65-5.03) M/mm3 Hgb (11.8-15.2) gm/dl Hct (35.5-45.6) % RDW (13.2-15.2) % Plt Count (140-440) K/mm3 D-Dimer (0-234) ng/mlDDU Heparin Anti-Xa Level (0.3-0.7) U.I./ml BUN (9-20) mg/dL Creatinine (0.8-1.3) mg/dL Glucose (75-100) mg/dL POC Glucose 156 H 153 H (70-105) Calcium (8.4-10.2) mg/dL Total Creatine Kinase (55-170) units/L Troponin T 0.573 H* D (0.00-0.029) ng/mL Crossmatch 02/21/20 02/21/20 02/21/20 Range/Units 04:39 04:39 05:12 RBC 2.35 L (3.65-5.03) M/mm3 Hgb 6.9 L (11.8-15.2) gm/dl Hct 21.1 L (35.5-45.6) % RDW 16.2 H (13.2-15.2) % Plt Count 126 L (140-440) K/mm3 D-Dimer (0-234) ng/mlDDU Heparin Anti-Xa Level (0.3-0.7) U.I./ml BUN 54 H (9-20) mg/dL Creatinine 2.2 H (0.8-1.3) mg/dL Glucose 120 H (75-100) mg/dL POC Glucose 139 H (70-105) Calcium 6.8 L (8.4-10.2) mg/dL Total Creatine Kinase 1488 H (55-170) units/L Troponin T (0.00-0.029) ng/mL Crossmatch 02/21/20 02/21/20 Range/Units 10:47 13:24 RBC (3.65-5.03) M/mm3 Hgb (11.8-15.2) gm/dl Hct (35.5-45.6) % RDW (13.2-15.2) % Plt Count (140-440) K/mm3 D-Dimer (0-234) ng/mlDDU Heparin Anti-Xa Level (0.3-0.7) U.I./ml BUN (9-20) mg/dL Creatinine (0.8-1.3) mg/dL Glucose (75-100) mg/dL POC Glucose 107 H (70-105) Calcium (8.4-10.2) mg/dL Total Creatine Kinase (55-170) units/L Troponin T (0.00-0.029) ng/mL Crossmatch See Detail
--- NOTE | 2020-02-21 22:25 | Ultrasound Report ---
ULTRASOUND RENAL INDICATION: renal failure. COMPARISON: Renal ultrasound 02/10/2020. FINDINGS: RIGHT KIDNEY: Size: 9.5 cm. Echogenicity: Normal. Cortical thickness: 1.4 cm. Hydronephrosis: None. Cyst or mass: None. Stones: None. LEFT KIDNEY: Size: 9.5 cm. Echogenicity: Normal. Cortical thickness: 1.0 cm. Hydronephrosis: None. Cyst or mass: None. Stones: None. Urinary Bladder: Collapsed containing Yin. Free Fluid: None. Additional Findings: None. IMPRESSION 1. Small kidneys characteristic for chronic medical renal disease. No hydronephrosis.. Signer Name: Silvestre Ordonez MD Signed: 02/21/2020 10:20 PM Workstation Name: [id number]
[2020-02-22] MEDS: INSULIN REGULAR, HUMAN 100 UNIT/ML 3ML VIAL SUB-Q SCH ×4 (00:57→18:09)
[2020-02-22 05:52] LABS: Hematocrit 27.6 % (35.5-45.6); Hemoglobin 9.5 gm/dl (11.8-15.2); Mean Corpuscular HGB Conc 34 % (32-34); Mean Corpuscular Volume 87 fl (84-94); Platelet Count 114 K/mm3 (140-440); Red Blood Count 3.18 M/mm3 (3.65-5.03); Red Cell Distribution Width 15.9 % (13.2-15.2)
[2020-02-22 06:07] LABS: Calcium 6.7 mg/dL (8.4-10.2)
--- NOTE | 2020-02-22 07:16 | Progress Note ---
Assessment and Plan 74 y/o male with known dementia, mumbles very few words at baseline if any, blank stares, admitted with altered mental status, respiratory failure, worsening renal failure and sepsis with shock 1. Pulm-extubated on nasal cannula. Ordered NT suction qshift. 2. CV- Hypotension responded well to PRBC transfusion. Reviewed Cardiology n otes. 3. Renal- CK dropping but appears Cr and BUN may have become stagnet. Await renal recs for today. 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 Not for COVID 4. Given stability off vasopressor therapy, likely will transfer to floor. Suggest having conversation with sister about end of life. Second hospital stay in less than 30 days with very similar presentation. Not sure how many more times patient can go through this and survive. Subjective Date of service: 02/22/20 Principal diagnosis: Septic Shock Interval history: Patient transfused 2 units of PRBC's on yesterday. Responded appropriately and has been weaned off of the vasopressor therapy. BP stable. Heparin has also been stopped. Satting well on 3 liters nasal cannula. Objective Vital Signs - 12hr 02/21/20 02/21/20 02/21/20 19:15 19:30 19:45 Temperature Pulse Rate 92 H 75 91 H Pulse Rate [ From Monitor] Respiratory 22 25 H 18 Rate Blood Pressure 113/71 132/78 123/69 O2 Sat by Pulse 96 98 97 Oximetry 02/21/20 02/21/20 02/21/20 20:00 20:16 20:30 Temperature 97.8 F Pulse Rate 89 93 H 85 Pulse Rate [ 95 H From Monitor] Respiratory 24 18 23 Rate Blood Pressure 123/59 134/65 123/77 O2 Sat by Pulse 98 97 98 Oximetry 02/21/20 02/21/20 02/21/20 20:45 21:00 21:15 Temperature Pulse Rate 90 93 H 92 H Pulse Rate [ From Monitor] Respiratory 23 26 H 24 Rate Blood Pressure 135/71 135/71 114/63 O2 Sat by Pulse 98 95 96 Oximetry 02/21/20 02/21/20 02/21/20 21:30 21:45 22:00 Temperature Pulse Rate 87 96 H 88 Pulse Rate [ From Monitor] Respiratory 24 24 24 Rate Blood Pressure 125/69 125/69 107/54 O2 Sat by Pulse 95 94 97 Oximetry 02/21/20 02/21/20 02/21/20 22:12 22:15 22:30 Temperature Pulse Rate 85 57 L 80 Pulse Rate [ From Monitor] Respiratory 23 23 24 Rate Blood Pressure 107/54 104/61 106/52 O2 Sat by Pulse 98 97 100 Oximetry 02/21/20 02/21/20 02/21/20 22:45 23:00 23:15 Temperature Pulse Rate 81 60 81 Pulse Rate [ From Monitor] Respiratory 18 22 21 Rate Blood Pressure 114/67 102/49 110/69 O2 Sat by Pulse 100 100 100 Oximetry 02/21/20 02/21/20 02/22/20 23:30 23:45 00:00 Temperature 97.7 F Pulse Rate 55 L 68 61 Pulse Rate [ From Monitor] Respiratory 23 25 H 24 Rate Blood Pressure 109/48 107/52 104/52 O2 Sat by Pulse 100 100 100 Oximetry 02/22/20 02/22/20 02/22/20 00:15 00:16 00:31 Temperature Pulse Rate 85 85 Pulse Rate [ From Monitor] Respiratory 23 25 H Rate Blood Pressure 100/72 111/48 O2 Sat by Pulse 99 99 100 Oximetry 02/22/20 02/22/20 02/22/20 00:45 00:59 01:00 Temperature Pulse Rate 72 86 Pulse Rate [ 98 H From Monitor] Respiratory 24 18 22 Rate Blood Pressure 110/55 115/58 O2 Sat by Pulse 99 98 98 Oximetry 02/22/20 02/22/20 02/22/20 01:15 01:30 01:45 Temperature Pulse Rate 85 85 85 Pulse Rate [ From Monitor] Respiratory 27 H 23 26 H Rate Blood Pressure 115/58 118/55 113/60 O2 Sat by Pulse 98 98 99 Oximetry 02/22/20 02/22/20 02/22/20 02:00 02:15 02:30 Temperature Pulse Rate 86 69 86 Pulse Rate [ From Monitor] Respiratory 23 26 H 24 Rate Blood Pressure 120/56 114/58 120/76 O2 Sat by Pulse 99 97 97 Oximetry 02/22/20 02/22/20 02/22/20 02:45 03:00 03:15 Temperature Pulse Rate 85 64 87 Pulse Rate [ From Monitor] Respiratory 24 23 24 Rate Blood Pressure 118/59 116/62 115/68 O2 Sat by Pulse 97 98 98 Oximetry 02/22/20 02/22/20 02/22/20 03:30 03:45 04:00 Temperature 98.0 F Pulse Rate 72 79 88 Pulse Rate [ From Monitor] Respiratory 26 H 16 24 Rate Blood Pressure 107/60 101/57 111/60 O2 Sat by Pulse 97 97 98 Oximetry 02/22/20 02/22/20 02/22/20 04:15 04:30 04:45 Temperature Pulse Rate 88 82 72 Pulse Rate [ From Monitor] Respiratory 25 H 21 23 Rate Blood Pressure 107/58 122/67 122/67 O2 Sat by Pulse 99 99 99 Oximetry 02/22/20 02/22/20 02/22/20 05:00 05:15 05:30 Temperature Pulse Rate 85 83 90 Pulse Rate [ From Monitor] Respiratory 23 25 H 21 Rate Blood Pressure 119/72 121/64 117/66 O2 Sat by Pulse 99 98 98 Oximetry 02/22/20 02/22/20 02/22/20 05:45 06:00 06:15 Temperature Pulse Rate 76 86 86 Pulse Rate [ 84 From Monitor] Respiratory 24 24 23 Rate Blood Pressure 117/66 117/67 116/62 O2 Sat by Pulse 98 99 98 Oximetry 02/22/20 06:31 Temperature Pulse Rate 82 Pulse Rate [ From Monitor] Respiratory 22 Rate Blood Pressure 107/54 O2 Sat by Pulse 99 Oximetry Constitutional: alert Neck: supple Effort: mildly labored Ascultation: Bilateral: clear, diminished breath sounds Percussion: Bilateral: not dull Cardiovascular: other (sinus tachycardia) Neurologic: unable to assess CBC and BMP: 02/22/20 05:13 02/22/20 05:13 ABG, PT/INR, D-dimer: ABG ABG pH 7.355 pH Units (7.350-7.450) 02/19/20 05:08 ABG pCO2 27.3 mm Hg 02/19/20 05:08 ABG pO2 168.2 mm Hg (80.0-90.0) H 02/19/20 05:08 ABG O2 Saturation 99.0 % (95.0-99.0) 02/19/20 05:08 PT/INR, D-dimer PT 18.6 Sec. (12.2-14.9) H 02/19/20 03:20 INR 1.53 (0.87-1.13) H 02/19/20 03:20 D-Dimer 1327.30 ng/mlDDU (0-234) H 02/20/20 17:20 Abnormal lab findings: Abnormal Labs 02/17/20 02/17/20 02/17/20 16:28 16:28 16:28 WBC 23.5 H RBC 3.07 L Hgb 9.1 L Hct 28.4 L RDW 16.8 H Plt Count Lymph % (Auto) Webb # Seg Neutrophils % Seg Neuts % (Manual) 84.0 H Lymphocytes % (Manual) 8.0 L Monocytes % (Manual) 8.0 H Seg Neutrophils # Seg Neutrophils # Man 19.7 H Monocytes # (Manual) 1.9 H PT 15.3 H INR 1.19 H D-Dimer Heparin Anti-Xa Level ABG pH ABG pO2 ABG HCO3 ABG O2 Saturation ABG Base Excess ABG Hemoglobin Sodium 136 L Potassium 5.4 H Chloride Carbon Dioxide 15 L BUN 91 H Creatinine 3.7 H D Glucose 120 H POC Glucose Lactic Acid Calcium 7.9 L Ferritin AST 65 H ALT 81 H Lactate Dehydrogenase Total Creatine Kinase CK-MB (CK-2) Troponin T C-Reactive Protein NT-Pro-B Natriuret Pep Total Protein 5.4 L Albumin 2.3 L Triglycerides HDL Cholesterol Urine WBC (Auto) Urine Creatinine Urine Chloride Urine Total Protein Crossmatch 02/17/20 02/17/20 02/17/20 16:28 16:28 16:28 WBC RBC Hgb Hct RDW Plt Count Lymph % (Auto) Webb # Seg Neutrophils % Seg Neuts % (Manual) Lymphocytes % (Manual) Monocytes % (Manual) Seg Neutrophils # Seg Neutrophils # Man Monocytes # (Manual) PT INR D-Dimer > 43358 H Heparin Anti-Xa Level ABG pH ABG pO2 ABG HCO3 ABG O2 Saturation ABG Base Excess ABG Hemoglobin Sodium Potassium Chloride Carbon Dioxide BUN Creatinine Glucose POC Glucose Lactic Acid 2.70 H* Calcium Ferritin AST ALT Lactate Dehydrogenase Total Creatine Kinase CK-MB (CK-2) Troponin T 0.748 H* C-Reactive Protein NT-Pro-B Natriuret Pep 1980 H Total Protein Albumin Triglycerides HDL Cholesterol Urine WBC (Auto) Urine Creatinine Urine Chloride Urine Total Protein Crossmatch 02/17/20 02/17/20 02/17/20 16:28 16:28 18:35 WBC RBC Hgb Hct RDW Plt Count Lymph % (Auto) Webb # Seg Neutrophils % Seg Neuts % (Manual) Lymphocytes % (Manual) Monocytes % (Manual) Seg Neutrophils # Seg Neutrophils # Man Monocytes # (Manual) PT INR D-Dimer Heparin Anti-Xa Level ABG pH 7.303 L ABG pO2 327.3 H ABG HCO3 12.5 L ABG O2 Saturation 99.5 H ABG Base Excess -12.3 L ABG Hemoglobin 11.2 L Sodium Potassium Chloride Carbon Dioxide BUN Creatinine Glucose POC Glucose Lactic Acid Calcium Ferritin 1191.0 H AST ALT Lactate Dehydrogenase 381 H Total Creatine Kinase CK-MB (CK-2) Troponin T C-Reactive Protein 18.20 H NT-Pro-B Natriuret Pep Total Protein Albumin Triglycerides HDL Cholesterol Urine WBC (Auto) Urine Creatinine Urine Chloride Urine Total Protein Crossmatch 02/17/20 02/18/20 02/18/20 Unknown 05:20 10:10 WBC RBC Hgb Hct RDW Plt Count Lymph % (Auto) Webb # Seg Neutrophils % Seg Neuts % (Manual) Lymphocytes % (Manual) Monocytes % (Manual) Seg Neutrophils # Seg Neutrophils # Man Monocytes # (Manual) PT INR D-Dimer Heparin Anti-Xa Level ABG pH 7.217 L ABG pO2 165.7 H ABG HCO3 10.5 L ABG O2 Saturation ABG Base Excess -15.7 L ABG Hemoglobin 10.3 L Sodium Potassium Chloride Carbon Dioxide BUN Creatinine Glucose POC Glucose Lactic Acid Calcium Ferritin AST ALT Lactate Dehydrogenase Total Creatine Kinase 5660 H CK-MB (CK-2) 78.0 H Troponin T 1.030 H* D C-Reactive Protein NT-Pro-B Natriuret Pep Total Protein Albumin Triglycerides 164 H HDL Cholesterol 38 L Urine WBC (Auto) 17.0 H Urine Creatinine Urine Chloride Urine Total Protein Crossmatch 02/18/20 02/18/20 02/18/20 12:14 17:32 17:40 WBC RBC Hgb Hct RDW Plt Count Lymph % (Auto) Webb # Seg Neutrophils % Seg Neuts % (Manual) Lymphocytes % (Manual) Monocytes % (Manual) Seg Neutrophils # Seg Neutrophils # Man Monocytes # (Manual) PT INR D-Dimer Heparin Anti-Xa Level ABG pH ABG pO2 ABG HCO3 ABG O2 Saturation ABG Base Excess ABG Hemoglobin Sodium Potassium Chloride Carbon Dioxide BUN Creatinine Glucose POC Glucose 193 H 191 H Lactic Acid Calcium Ferritin AST ALT Lactate Dehydrogenase Total Creatine Kinase CK-MB (CK-2) Troponin T C-Reactive Protein NT-Pro-B Natriuret Pep Total Protein Albumin Triglycerides HDL Cholesterol Urine WBC (Auto) Urine Creatinine 35.2 H Urine Chloride 81.0 L Urine Total Protein 38 H Crossmatch 02/18/20 02/19/20 02/19/20 17:40 00:04 01:50 WBC RBC Hgb Hct RDW Plt Count Lymph % (Auto) Webb # Seg Neutrophils % Seg Neuts % (Manual) Lymphocytes % (Manual) Monocytes % (Manual) Seg Neutrophils # Seg Neutrophils # Man Monocytes # (Manual) PT INR D-Dimer Heparin Anti-Xa Level 0.18 L ABG pH ABG pO2 ABG HCO3 ABG O2 Saturation ABG Base Excess ABG Hemoglobin Sodium Potassium Chloride 111.4 H Carbon Dioxide 11 L BUN 77 H Creatinine 2.8 H Glucose 168 H POC Glucose 145 H Lactic Acid Calcium 7.2 L Ferritin AST ALT Lactate Dehydrogenase Total Creatine Kinase CK-MB (CK-2) Troponin T C-Reactive Protein NT-Pro-B Natriuret Pep Total Protein Albumin Triglycerides HDL Cholesterol Urine WBC (Auto) Urine Creatinine Urine Chloride Urine Total Protein Crossmatch 02/19/20 02/19/20 02/19/20 03:20 04:00 05:08 WBC 17.6 H RBC 2.76 L Hgb 8.1 L Hct 25.0 L RDW 16.6 H Plt Count Lymph % (Auto) 10.5 L Webb # 1.2 H Seg Neutrophils % 82.1 H Seg Neuts % (Manual) Lymphocytes % (Manual) Monocytes % (Manual) Seg Neutrophils # 14.5 H Seg Neutrophils # Man Monocytes # (Manual) PT 18.6 H INR 1.53 H D-Dimer Heparin Anti-Xa Level ABG pH ABG pO2 168.2 H ABG HCO3 14.9 L ABG O2 Saturation ABG Base Excess -9.5 L ABG Hemoglobin 8.3 L Sodium Potassium Chloride Carbon Dioxide BUN Creatinine Glucose POC Glucose Lactic Acid Calcium Ferritin AST ALT Lactate Dehydrogenase Total Creatine Kinase CK-MB (CK-2) Troponin T C-Reactive Protein NT-Pro-B Natriuret Pep Total Protein Albumin Triglycerides HDL Cholesterol Urine WBC (Auto) Urine Creatinine Urine Chloride Urine Total Protein Crossmatch 02/19/20 02/19/20 02/19/20 05:38 05:50 09:10 WBC RBC Hgb Hct RDW Plt Count Lymph % (Auto) Webb # Seg Neutrophils % Seg Neuts % (Manual) Lymphocytes % (Manual) Monocytes % (Manual) Seg Neutrophils # Seg Neutrophils # Man Monocytes # (Manual) PT INR D-Dimer Heparin Anti-Xa Level ABG pH ABG pO2 ABG HCO3 ABG O2 Saturation ABG Base Excess ABG Hemoglobin Sodium Potassium Chloride 111.6 H 111.9 H Carbon Dioxide 14 L 15 L BUN 69 H 68 H Creatinine 2.6 H 2.5 H Glucose 151 H 154 H POC Glucose 143 H Lactic Acid Calcium 7.4 L 7.2 L Ferritin AST ALT Lactate Dehydrogenase Total Creatine Kinase 3552 H CK-MB (CK-2) Troponin T C-Reactive Protein NT-Pro-B Natriuret Pep Total Protein Albumin Triglycerides HDL Cholesterol Urine WBC (Auto) Urine Creatinine Urine Chloride Urine Total Protein Crossmatch 02/19/20 02/19/20 02/19/20 11:41 12:00 17:46 WBC RBC Hgb Hct RDW Plt Count Lymph % (Auto) Webb # Seg Neutrophils % Seg Neuts % (Manual) Lymphocytes % (Manual) Monocytes % (Manual) Seg Neutrophils # Seg Neutrophils # Man Monocytes # (Manual) PT INR D-Dimer Heparin Anti-Xa Level 0.11 L ABG pH ABG pO2 ABG HCO3 ABG O2 Saturation ABG Base Excess ABG Hemoglobin Sodium Potassium Chloride Carbon Dioxide BUN Creatinine Glucose POC Glucose 160 H 133 H Lactic Acid Calcium Ferritin AST ALT Lactate Dehydrogenase Total Creatine Kinase CK-MB (CK-2) Troponin T C-Reactive Protein NT-Pro-B Natriuret Pep Total Protein Albumin Triglycerides HDL Cholesterol Urine WBC (Auto) Urine Creatinine Urine Chloride Urine Total Protein Crossmatch 02/19/20 02/19/20 02/20/20 20:02 23:50 04:44 WBC RBC 2.64 L Hgb 7.9 L Hct 24.1 L RDW 16.3 H Plt Count 137 L Lymph % (Auto) Webb # Seg Neutrophils % Seg Neuts % (Manual) Lymphocytes % (Manual) Monocytes % (Manual) Seg Neutrophils # Seg Neutrophils # Man Monocytes # (Manual) PT INR D-Dimer Heparin Anti-Xa Level 0.12 L ABG pH ABG pO2 ABG HCO3 ABG O2 Saturation ABG Base Excess ABG Hemoglobin Sodium Potassium Chloride Carbon Dioxide BUN Creatinine Glucose POC Glucose 128 H Lactic Acid Calcium Ferritin AST ALT Lactate Dehydrogenase Total Creatine Kinase CK-MB (CK-2) Troponin T C-Reactive Protein NT-Pro-B Natriuret Pep Total Protein Albumin Triglycerides HDL Cholesterol Urine WBC (Auto) Urine Creatinine Urine Chloride Urine Total Protein Crossmatch 02/20/20 02/20/20 02/20/20 04:44 04:44 10:00 WBC RBC Hgb Hct RDW Plt Count Lymph % (Auto) Webb # Seg Neutrophils % Seg Neuts % (Manual) Lymphocytes % (Manual) Monocytes % (Manual) Seg Neutrophils # Seg Neutrophils # Man Monocytes # (Manual) PT INR D-Dimer Heparin Anti-Xa Level 0.15 L < 0.10 L ABG pH ABG pO2 ABG HCO3 ABG O2 Saturation ABG Base Excess ABG Hemoglobin Sodium Potassium Chloride 110.4 H Carbon Dioxide 19 L BUN 61 H Creatinine 2.4 H Glucose POC Glucose Lactic Acid Calcium 7.3 L Ferritin AST ALT Lactate Dehydrogenase Total Creatine Kinase 2238 H CK-MB (CK-2) Troponin T C-Reactive Protein NT-Pro-B Natriuret Pep Total Protein Albumin Triglycerides HDL Cholesterol Urine WBC (Auto) Urine Creatinine Urine Chloride Urine Total Protein Crossmatch 02/20/20 02/20/20 02/20/20 12:58 17:20 17:20 WBC RBC Hgb Hct RDW Plt Count Lymph % (Auto) Webb # Seg Neutrophils % Seg Neuts % (Manual) Lymphocytes % (Manual) Monocytes % (Manual) Seg Neutrophils # Seg Neutrophils # Man Monocytes # (Manual) PT INR D-Dimer 1327.30 H Heparin Anti-Xa Level 0.17 L ABG pH ABG pO2 ABG HCO3 ABG O2 Saturation ABG Base Excess ABG Hemoglobin Sodium Potassium Chloride Carbon Dioxide BUN Creatinine Glucose POC Glucose 123 H Lactic Acid Calcium Ferritin AST ALT Lactate Dehydrogenase Total Creatine Kinase CK-MB (CK-2) Troponin T C-Reactive Protein NT-Pro-B Natriuret Pep Total Protein Albumin Triglycerides HDL Cholesterol Urine WBC (Auto) Urine Creatinine Urine Chloride Urine Total Protein Crossmatch 02/20/20 02/20/20 02/20/20 17:20 18:11 23:52 WBC RBC Hgb Hct RDW Plt Count Lymph % (Auto) Webb # Seg Neutrophils % Seg Neuts % (Manual) Lymphocytes % (Manual) Monocytes % (Manual) Seg Neutrophils # Seg Neutrophils # Man Monocytes # (Manual) PT INR D-Dimer Heparin Anti-Xa Level ABG pH ABG pO2 ABG HCO3 ABG O2 Saturation ABG Base Excess ABG Hemoglobin Sodium Potassium Chloride Carbon Dioxide BUN Creatinine Glucose POC Glucose 156 H 153 H Lactic Acid Calcium Ferritin AST ALT Lactate Dehydrogenase Total Creatine Kinase CK-MB (CK-2) Troponin T 0.573 H* D C-Reactive Protein NT-Pro-B Natriuret Pep Total Protein Albumin Triglycerides HDL Cholesterol Urine WBC (Auto) Urine Creatinine Urine Chloride Urine Total Protein Crossmatch 02/21/20 02/21/20 02/21/20 04:39 04:39 05:12 WBC RBC 2.35 L Hgb 6.9 L Hct 21.1 L RDW 16.2 H Plt Count 126 L Lymph % (Auto) Webb # Seg Neutrophils % Seg Neuts % (Manual) Lymphocytes % (Manual) Monocytes % (Manual) Seg Neutrophils # Seg Neutrophils # Man Monocytes # (Manual) PT INR D-Dimer Heparin Anti-Xa Level ABG pH ABG pO2 ABG HCO3 ABG O2 Saturation ABG Base Excess ABG Hemoglobin Sodium Potassium Chloride Carbon Dioxide BUN 54 H Creatinine 2.2 H Glucose 120 H POC Glucose 139 H Lactic Acid Calcium 6.8 L Ferritin AST ALT Lactate Dehydrogenase Total Creatine Kinase 1488 H CK-MB (CK-2) Troponin T C-Reactive Protein NT-Pro-B Natriuret Pep Total Protein Albumin Triglycerides HDL Cholesterol Urine WBC (Auto) Urine Creatinine Urine Chloride Urine Total Protein Crossmatch 02/21/20 02/21/20 02/21/20 10:47 13:24 15:41 WBC RBC Hgb Hct RDW Plt Count Lymph % (Auto) Webb # Seg Neutrophils % Seg Neuts % (Manual) Lymphocytes % (Manual) Monocytes % (Manual) Seg Neutrophils # Seg Neutrophils # Man Monocytes # (Manual) PT INR D-Dimer Heparin Anti-Xa Level < 0.10 L ABG pH ABG pO2 ABG HCO3 ABG O2 Saturation ABG Base Excess ABG Hemoglobin Sodium Potassium Chloride Carbon Dioxide BUN Creatinine Glucose POC Glucose 107 H Lactic Acid Calcium Ferritin AST ALT Lactate Dehydrogenase Total Creatine Kinase CK-MB (CK-2) Troponin T C-Reactive Protein NT-Pro-B Natriuret Pep Total Protein Albumin Triglycerides HDL Cholesterol Urine WBC (Auto) Urine Creatinine Urine Chloride Urine Total Protein Crossmatch See Detail 02/22/20 02/22/20 05:13 05:13 WBC RBC 3.18 L Hgb 9.5 L Hct 27.6 L D RDW 15.9 H Plt Count 114 L Lymph % (Auto) Webb # Seg Neutrophils % Seg Neuts % (Manual) Lymphocytes % (Manual) Monocytes % (Manual) Seg Neutrophils # Seg Neutrophils # Man Monocytes # (Manual) PT INR D-Dimer Heparin Anti-Xa Level ABG pH ABG pO2 ABG HCO3 ABG O2 Saturation ABG Base Excess ABG Hemoglobin Sodium Potassium Chloride Carbon Dioxide BUN 52 H Creatinine 2.3 H Glucose 103 H POC Glucose Lactic Acid Calcium 6.7 L Ferritin AST ALT Lactate Dehydrogenase Total Creatine Kinase 865 H CK-MB (CK-2) Troponin T C-Reactive Protein NT-Pro-B Natriuret Pep Total Protein Albumin Triglycerides HDL Cholesterol Urine WBC (Auto) Urine Creatinine Urine Chloride Urine Total Protein Crossmatch
[2020-02-22] MEDS: FAMOTIDINE 20 MG/2 ML INJ IV SCH (10:45)
[2020-02-22] MEDS: CEFEPIME/NS 2 GM/100 ML 2 GM/100 ML BAG IV SCH (10:45)
[2020-02-22] MEDS: ASPIRIN 81 MG TAB CHEW PO SCH (10:45)
[2020-02-22] MEDS: DOCUSATE SODIUM 100 MG/10 ML ORAL LIQD PO SCH ×2 (10:45→23:10)
--- NOTE | 2020-02-22 13:12 | Progress Note ---
Assessment and Plan Suspect NSTEMI type II in the setting of septic shock/acute resp fail/AMMY. Severe anemia noted and thrombocytopenia noted, heparin gtt d/c'd. DDimer significantly elevated - V/Q scan low prob for PE. Currently weaned off vasopressors. Prognosis remains guarded. Cont present cardiac management. Will follow on as needed basis. Pt seen in conjunction with Dr. Kat Garay who agrees with the assessment and plan of care. - Patient Problems (1) Acute respiratory failure Current Visit: Yes Status: Acute (2) Bilateral pneumonia Current Visit: Yes Status: Acute (3) Septic shock Current Visit: Yes Status: Acute (4) Acute kidney injury superimposed on CKD Current Visit: Yes Status: Acute (5) Anemia Current Visit: Yes Status: Acute (6) Elevated d-dimer Current Visit: Yes Status: Acute (7) NSTEMI (non-ST elevated myocardial infarction) Current Visit: Yes Status: Acute (8) HTN (hypertension) Current Visit: No Status: Chronic Qualifiers: Hypertension type: essential hypertension Qualified Code(s): I10 - Essential (primary) hypertension (9) HLD (hyperlipidemia) Current Visit: Yes Status: Chronic Qualifiers: Hyperlipidemia type: mixed hyperlipidemia Qualified Code(s): E78.2 - Mixed hyperlipidemia (10) DM2 (diabetes mellitus, type 2) Current Visit: Yes Status: Chronic (11) PVD (peripheral vascular disease) Current Visit: Yes Status: Chronic (12) H/O: CVA (cerebrovascular accident) Current Visit: Yes Status: Chronic (13) Thrombocytopenia Current Visit: Yes Status: Acute Subjective Date of service: 02/22/20 Principal diagnosis: Septic Shock Interval history: pt resting in bed. in SR on tele HR 100s. currently weaned off vasopressors. Objective Last Vital Signs Temp 97.9 F 02/22/20 12:00 Pulse 89 02/22/20 12:00 Resp 26 H 02/22/20 12:00 BP 126/76 02/22/20 12:00 Pulse Ox 97 02/22/20 12:00 - Physical Examination General: No Apparent Distress HEENT: Positive: Normocephaly Neck: Negative: JVD/HJR Cardiac: Positive: Reg Rate and Rhythm, S1/S2 Lungs: Positive: Decreased Breath Sounds Neuro: Positive: Other (intubated/sedated) Abdomen: Positive: Soft, Active Bowel Sounds Skin: Negative: Rash Musculoskeletal: No Fluid Collection Extremities: Present: upper extr. pulses, lower extr. pulses. Absent: edema - Labs and Meds CBC 02/22/20 Range/Units 05:13 WBC 5.2 (4.5-11.0) K/mm3 RBC 3.18 L (3.65-5.03) M/mm3 Hgb 9.5 L (11.8-15.2) gm/dl Hct 27.6 L D (35.5-45.6) % Plt Count 114 L (140-440) K/mm3 Comprehensive Metabolic Panel 02/22/20 Range/Units 05:13 Sodium 142 (137-145) mmol/L Potassium 3.8 (3.6-5.0) mmol/L Chloride 106.5 (98-107) mmol/L Carbon Dioxide 22 (22-30) mmol/L BUN 52 H (9-20) mg/dL Creatinine 2.3 H (0.8-1.3) mg/dL Glucose 103 H (75-100) mg/dL Calcium 6.7 L (8.4-10.2) mg/dL - Imaging and Cardiology EKG: report reviewed, image reviewed Echo: report reviewed (EF 45-50%, impaired relaxation, mild pulm HTN RVSP 40mmHg. ) - EKG Sinus rhythms and dysrhythmias: sinus rhythm
--- NOTE | 2020-02-22 14:57 | Progress Note ---
Assessment and Plan Assessment: Acute hypoxic respiratory failure Septic Shock 2/2 PNA Bilateral PNA Acute Kidney Injury 2/2 ischemic ATN from septic shock, Rhabdo, on underlying CKD, r/o obstruction Elevated D-Dimers Plan: - Renal function reviewed, SCr level was 2.3 today, yesterday's SCr level was 2.2, has good UOP of 2050 ml - Review of labs in 2015 in [facility] [employer] [facility] did show SCr level between 1.6-1.8 - S/P D5W +150 mEq sodium bicarbonate infusion at 75 ml/hr - CK level was elevated so could have AMMY from contribution from Rhabdo as well - On vasopressin drip - Trend daily CK levels - CK level 865 today, trending downward - Renal ultrasound-chronic medical renal disease. No hydronephrosis - Urine eosinophils negative, calculated protein to cr ratio 1 g, monitor - Pt on isolation for concern of COVID-19, ID onboard - Yin Catheter: Yes - Renally dose medications - Avoid nephrotoxins - Continue to monitor - No acute indication for VASCULAR NURSE Subjective Date of service: 02/22/20 Principal diagnosis: Septic Shock Interval history: Patient with recent + COVID-19, pt not examined to limit direct contact/re sources, reviewed medical chart, labs, and notes. Objective - Vital Signs Vital signs: Vital Signs - 12hr 02/22/20 02/22/20 02/22/20 03:00 03:15 03:30 Temperature Pulse Rate 64 87 72 Pulse Rate [ From Monitor] Respiratory 23 24 26 H Rate Blood Pressure 116/62 115/68 107/60 O2 Sat by Pulse 98 98 97 Oximetry 02/22/20 02/22/20 02/22/20 03:45 04:00 04:15 Temperature 98.0 F Pulse Rate 79 88 88 Pulse Rate [ From Monitor] Respiratory 16 24 25 H Rate Blood Pressure 101/57 111/60 107/58 O2 Sat by Pulse 97 98 99 Oximetry 02/22/20 02/22/20 02/22/20 04:30 04:45 05:00 Temperature Pulse Rate 82 72 85 Pulse Rate [ From Monitor] Respiratory 21 23 23 Rate Blood Pressure 122/67 122/67 119/72 O2 Sat by Pulse 99 99 99 Oximetry 02/22/20 02/22/20 02/22/20 05:15 05:30 05:45 Temperature Pulse Rate 83 90 76 Pulse Rate [ 84 From Monitor] Respiratory 25 H 21 24 Rate Blood Pressure 121/64 117/66 117/66 O2 Sat by Pulse 98 98 98 Oximetry 02/22/20 02/22/20 02/22/20 06:00 06:15 06:31 Temperature Pulse Rate 86 86 82 Pulse Rate [ From Monitor] Respiratory 24 23 22 Rate Blood Pressure 117/67 116/62 107/54 O2 Sat by Pulse 99 98 99 Oximetry 02/22/20 02/22/20 02/22/20 06:45 07:00 07:15 Temperature Pulse Rate 82 87 95 H Pulse Rate [ From Monitor] Respiratory 23 24 23 Rate Blood Pressure 117/68 117/68 103/62 O2 Sat by Pulse 99 99 94 Oximetry 02/22/20 02/22/20 02/22/20 07:30 07:45 08:00 Temperature 97.9 F Pulse Rate 87 88 91 H Pulse Rate [ 88 From Monitor] Respiratory 24 27 H 26 H Rate Blood Pressure 140/76 149/83 148/77 O2 Sat by Pulse 93 95 95 Oximetry 02/22/20 02/22/20 02/22/20 08:15 08:29 08:30 Temperature Pulse Rate 90 91 H Pulse Rate [ From Monitor] Respiratory 26 H 27 H Rate Blood Pressure 127/67 119/78 O2 Sat by Pulse 96 95 96 Oximetry 02/22/20 02/22/20 02/22/20 08:45 09:00 09:15 Temperature Pulse Rate 90 83 83 Pulse Rate [ From Monitor] Respiratory 27 H 27 H 26 H Rate Blood Pressure 115/88 127/88 127/70 O2 Sat by Pulse 96 97 97 Oximetry 02/22/20 02/22/20 02/22/20 09:31 09:45 10:00 Temperature Pulse Rate 88 89 87 Pulse Rate [ From Monitor] Respiratory 27 H 25 H 28 H Rate Blood Pressure 128/75 142/79 140/83 O2 Sat by Pulse 96 94 95 Oximetry 02/22/20 02/22/20 02/22/20 10:15 10:30 10:45 Temperature Pulse Rate 85 92 H 90 Pulse Rate [ From Monitor] Respiratory 26 H 31 H 27 H Rate Blood Pressure 140/83 134/71 110/54 O2 Sat by Pulse 95 96 95 Oximetry 02/22/20 02/22/20 02/22/20 11:00 11:15 11:16 Temperature Pulse Rate 91 H 92 H 91 H Pulse Rate [ 91 H From Monitor] Respiratory 32 H 22 22 Rate Blood Pressure 140/96 142/89 O2 Sat by Pulse 95 94 98 Oximetry 02/22/20 02/22/20 02/22/20 11:30 11:45 12:00 Temperature 97.9 F Pulse Rate 90 95 H 89 Pulse Rate [ From Monitor] Respiratory 27 H 28 H 26 H Rate Blood Pressure 131/87 137/81 126/76 O2 Sat by Pulse 95 96 97 Oximetry 02/22/20 02/22/20 02/22/20 12:15 12:30 12:45 Temperature Pulse Rate 88 88 86 Pulse Rate [ From Monitor] Respiratory 21 17 25 H Rate Blood Pressure 126/79 132/69 118/67 O2 Sat by Pulse 96 98 97 Oximetry 02/22/20 02/22/20 02/22/20 13:00 13:15 13:30 Temperature Pulse Rate 86 64 85 Pulse Rate [ From Monitor] Respiratory 25 H 26 H 25 H Rate Blood Pressure 127/74 112/74 113/77 O2 Sat by Pulse 98 99 98 Oximetry 02/22/20 02/22/20 13:45 14:00 Temperature Pulse Rate 87 74 Pulse Rate [ From Monitor] Respiratory 26 H 24 Rate Blood Pressure 128/82 114/58 O2 Sat by Pulse 99 99 Oximetry - Lab 02/22/20 05:13 02/22/20 05:13 Most recent lab results ABG pH 7.355 pH Units (7.350-7.450) 02/19/20 05:08 ABG pCO2 27.3 mm Hg 02/19/20 05:08 ABG pO2 168.2 mm Hg (80.0-90.0) H 02/19/20 05:08 ABG HCO3 14.9 mmol/L (20.0-26.0) L 02/19/20 05:08 ABG O2 Saturation 99.0 % (95.0-99.0) 02/19/20 05:08 Calcium 6.7 mg/dL (8.4-10.2) L 02/22/20 05:13 Urine Creatinine 35.2 mg/dL (0.1-20.0) H 02/18/20 17:40 Urine Sodium 104 mmol/L 02/18/20 17:40 Urine Total Protein 38 mg/dL (5-11.8) H 02/18/20 17:40 Medications & Allergies - Medications Allergies/Adverse Reactions: Allergies No Known Allergies Allergy (Unverified 05/01/15 23:41) Home Medications: Home Medications Medication Instructions Recorded Confirmed Last Taken Type Acetaminophen [Acetaminophen TAB] 650 mg PO Q8H PRN 05/02/15 02/18/20 Unknown History Albuterol Sulfate [Albuterol 0.63% 0.63 mg IH Q6H PRN 05/02/15 02/18/20 Unknown History NEBS] Aspirin [Aspirin BABY CHEW TAB] 81 mg PO DAILY 05/02/15 02/18/20 05/01/15 History AtorvaSTATin [Lipitor] 20 mg PO QHS 05/02/15 02/18/20 05/01/15 History Docusate Sodium [Colace CAP] 100 mg PO BID 05/02/15 02/18/20 05/02/15 History Insulin Lispro [HumaLOG VIAL] See Protocol SUB-Q ACHS 05/02/15 02/18/20 05/01/15 History amLODIPine 5 mg PO DAILY 05/02/15 02/18/20 05/01/15 History Active Medications: Generic Name Dose Route Start Last Admin Trade Name Freq PRN Reason Stop Dose Admin Lipase/Protease/Amylase 1 each 02/21/20 12:12 Pancrecristiane Simon 10,500 Unit FEEDTUBE PRN PRN For Clogged Feeding Tube Aspirin 81 mg 02/18/20 10:00 02/22/20 10:45 Baby Aspirin PO 81 mg DAILY LOS Administration Atorvastatin Calcium 20 mg 02/18/20 22:00 02/21/20 21:36 Lipitor PO 20 mg QHS LOS Administration Dextrose 50 ml 02/18/20 12:55 D50w (25gm) Syringe IV Q30MIN PRN Hypoglycemia Protocol Docusate Sodium 100 mg 02/20/20 12:00 02/22/20 10:45 Colace PO 100 mg BID LOS Administration Famotidine 20 mg 02/18/20 10:00 02/22/20 10:45 Pepcid IV 20 mg DAILY LOS Administration Hydrophilic Ointment 1 applic 02/17/20 15:12 Vaseline Lip Therapy TP Q2HR PRN Dry Lips Norepinephrine 4 mg in 250 mls @ 7.5 mls/hr 02/17/20 20:00 02/21/20 21:42 Levophed Drip 4 Mg/Ns 250 Ml IV 0 mcg/min TITR LSO 0 mls/hr Titration Protocol 2 MCG/MIN Cefepime HCl 2 gm in 100 mls @ 200 mls/hr 02/18/20 09:00 02/22/20 10:45 Cefepime/Ns 2 Gm/100 Ml IV 02/25/20 10:29 200 mls/hr Q24HR LOS Administration Protocol Vasopressin 20 unit/ Sodium 101 mls @ 9.09 mls/hr 02/18/20 10:00 02/21/20 17:10 Chloride IV Infused TITR LOS Titration Protocol 0.03 UNITS/MIN Insulin Human Regular 0 unit 02/18/20 13:00 02/22/20 13:53 Humulin R SUB-Q Not Given Q6HR [facility] Protocol Magnesium Hydroxide 30 ml 02/18/20 02:31 Milk Of Magnesia PO Q4H PRN Constipation Multi-Ingred Cream/Lotion/Oil/Oint 1 applic 02/17/20 15:12 02/19/20 04:25 Artificial Tears Ophth Oint OU 1 applic Q4HR PRN Administration Dry Eye(s) Simple Syrup 15 ml 02/21/20 12:12 Simple Syrup FEEDTUBE PRN PRN Hypoglycemia Simple Syrup 30 ml 02/21/20 12:12 Simple Syrup FEEDTUBE PRN PRN Hypoglycemia Sodium Bicarbonate 325 mg 02/21/20 12:12 Sodium Bicarbonate FEEDTUBE PRN PRN For Clogged Feeding Tube Sodium Chloride 10 ml 02/18/20 10:00 02/22/20 10:45 Sodium Chloride Flush Syringe 10 Ml IV 10 ml BID LOS Administration Sodium Chloride 10 ml 02/18/20 02:31 Sodium Chloride Flush Syringe 10 Ml IV PRN PRN LINE FLUSH
--- NOTE | 2020-02-22 15:22 | Progress Note ---
Assessment and Plan Cultures: Coronavirus PCR 02/05/2020: Negative Coronavirus PCR 02/10/2020: Negative Coronavirus PCR 02/18/2020: Negative MRSA nasal PCR 02/05/2020: Positive 02/04/2020 blood culture: No growth 02/04/2020 tracheal aspirate: Proteus, Hemophilus, MRSA 02/14/2020 blood culture: No growth 02/17/2020 tracheal aspirate: normal resp demetrius 02/17/2020 blood culture: No growth today A/P: 74 y/o male with history of CVA with left hemiparesis, diabetes mellitus, hypertension, dyslipidemia, dementia and peripheral vascular disease, from [facility], recent COVID, admitted on due to AMS and low O2 sats: #Severe sepsis with septic shock: on 2 pressors, elevated lactate; source likely pneumonia/suspect PE post COVID. #Bilateral pneumonia: likely bacterial pneumonia. COVID markers elevated Charmaine tin 1191. Ddmer >10,000. CRP 18. LDH 381. Recent sputum cx with PMDR Proteus, MRSA. H flu. MRSA PCR positive. Elevated procal however possible due to renal failure #Acute resp failure: intubated. Very high ddimer suspect PE post COVID. #Elevated LFTs: from sepsis #AMMY on CKD: renally adjusted meds, required HD during previous admission Recs: -Continue cefepime and vancomycin renally adjusted. Plan on 8 days of antibiotics. -Agree with full anticoagulation High risk mortality / guarded prognosis consider palliative care Edel Saenz MD [facility] ([facility]) M: [phone] O: [phone] F: [phone] Subjective Date of service: 02/22/20 Principal diagnosis: Septic Shock Interval history: Afebrile, normal white count. 2 L nasal cannula. Objective - Exam Narrative Exam: Constitutional: Extubated on nasal cannula Head, Ears, Nose: Normocephalic, atraumatic. External ears, nose normal Oral: Limited Eyes: Conjunctivae/corneas clear. No icterus. No ptosis. Neck: limited Cardiovascular: tachy Respiratory: limited GI: limited Musculoskeletal: limited Skin: limited Hem/Lymphatic: limited Psych: limited Neurological: limited - Constitutional Vitals: Vital Signs Temp Pulse Resp BP Pulse Ox 97.9 F 83 24 103/56 98 02/22/20 12:00 02/22/20 15:01 02/22/20 15:01 02/22/20 15:01 02/22/20 15:01 Temperature -Last 24 Hours Temperature 97.9 F Temperature 97.9 F Temperature 98.0 F Temperature 97.7 F Temperature 97.8 F Temperature 97.3 F Temperature 97.3 F Temperature 98.5 F Temperature 98.4 F Temperature 98.4 F Temperature 98.3 F Temperature 98.3 F Temperature 98.3 F Temperature 98.3 F Temperature 98.3 F - Labs CBC & Chem 7: 02/22/20 05:13 02/22/20 05:13 Labs: Abnormal lab results 02/21/20 02/21/20 02/22/20 Range/Units 10:47 15:41 05:13 RBC 3.18 L (3.65-5.03) M/mm3 Hgb 9.5 L (11.8-15.2) gm/dl Hct 27.6 L D (35.5-45.6) % RDW 15.9 H (13.2-15.2) % Plt Count 114 L (140-440) K/mm3 Heparin Anti-Xa Level < 0.10 L (0.3-0.7) U.I./ml BUN (9-20) mg/dL Creatinine (0.8-1.3) mg/dL Glucose (75-100) mg/dL Calcium (8.4-10.2) mg/dL Total Creatine Kinase (55-170) units/L Crossmatch See Detail 02/22/20 Range/Units 05:13 RBC (3.65-5.03) M/mm3 Hgb (11.8-15.2) gm/dl Hct (35.5-45.6) % RDW (13.2-15.2) % Plt Count (140-440) K/mm3 Heparin Anti-Xa Level (0.3-0.7) U.I./ml BUN 52 H (9-20) mg/dL Creatinine 2.3 H (0.8-1.3) mg/dL Glucose 103 H (75-100) mg/dL Calcium 6.7 L (8.4-10.2) mg/dL Total Creatine Kinase 865 H (55-170) units/L Crossmatch
--- NOTE | 2020-02-22 15:48 | Progress Note ---
Assessment and Plan Assessment and plan: --Anemia: Hb 6.9 Current Visit: Yes Status: Acute Plan to address problem: Transfused 2 units of PRBC,Hb 9.5 Closely monitor H&H and transfuse additional as needed If no improvement GI evaluation --Elevated D-dimers Current Visit: Yes Status: Acute Plan to address problem: More than 10,000, on heparin drip V/Q scan low probability for PE Check lower extremity venous Doppler dc heparin,lovenox renal dose 1 dose Pending lower extremity Doppler study to rule out DVT --Septic shock/on pressors/resolved Current Visit: Yes Status: Acute Plan to address problem: Monitor off vasopressors, --Sepsis; right pneumonia/HCAP Current Visit: Yes Status: Acute Plan to address problem: Continue Vanco and cefepime , follow cultures, supportive care --Rhabdomyolysis; Current Visit: Yes Status: Acute Plan to address problem: Continue IV fluids, input output monitoring, CK levels trending down CK [id number] We will monitor renal function --COVID-19 test negative x2 during last admission Test negative during this admission 02/18/2020 However patient has very high levels of inflammatory markers ID consulted, trend the markers --Ac. resp failure with hypoxia/ extubated 02/19/2020 Current Visit: No Status: Acute Plan to address problem: on nasal cannula oxygen, saturating well off Levophed --Acute on chronic kidney disease Current Visit: Yes Status: Acute Plan to address problem: Secondary to ATN, gentle hydration Avoid nephrotoxins, monitor renal function Nephrology following -- DVT prophylaxis Current Visit: No Status: Acute Plan to address problem: SCD, no pharmacologic anticoagulation in view of anemia PT OT, DC planning Monitor closely and adjust management as needed Critical care time 32 minutes The high probability of a clinically significant, sudden or life threatening deterioration of the [Respiratory, renal, ID] system(s) required my full and direct attention, intervention and personal management.The aggregate critical care time was [32] minutes. This time is in addition to time spent performing , reported procedures but includes the following: [x] Data Review and interpretation [x] Patient assessment and monitoring of vital signs [x] Documentation [x] Medication orders and management Plan of care reviewed with the patient's nurse 02/18; patient was extubated, tolerated well, supportive care 02/19; hypotensive shock on pressors, check VQ scan to rule out PE 02/20: VQ scan low probability for PE, DC heparin drip ,rule out DVT Anemia Hb, advised 2 units PRBC transfusion, GI evaluation if needed 02/21: Restraint for safety, patient stable to be transferred out of ICU to telemetry Closely monitor the patient and adjust management as needed History Interval history: I seen and examined the patient at the bedside Patient's chart and medications reviewed Patient feels slightly better no new complaints by the nurse Confused, vital signs noted Hospitalist Physical - Constitutional Vitals: Temp Pulse Resp BP Pulse Ox 97.9 F 82 20 103/56 97 02/22/20 12:00 02/22/20 15:41 02/22/20 15:41 02/22/20 15:01 02/22/20 15:41 General appearance: Present: no acute distress, well-nourished - EENT Eyes: Present: PERRL, EOM intact - Neck Neck: Present: supple, normal ROM - Respiratory Respiratory effort: normal Respiratory: bilateral: diminished, rhonchi, negative: rales, wheezing - Cardiovascular Rhythm: regular Heart Sounds: Present: S1 & S2 - Extremities Extremities: no ischemia, No edema - Abdominal General gastrointestinal: soft, non-tender, non-distended, normal bowel sounds - Integumentary Integumentary: Present: clear, warm - Psychiatric Psychiatric: appropriate mood/affect, cooperative - Neurologic Neurologic: moves all extremities HEART Score - HEART Score Troponin: Troponin T 0.573 ng/mL (0.00-0.029) H* D 02/20/20 17:20 Results - Labs CBC & Chem 7: 02/22/20 05:13 02/22/20 05:13 Labs: Laboratory Last Values WBC 5.2 K/mm3 (4.5-11.0) 02/22/20 05:13 RBC 3.18 M/mm3 (3.65-5.03) L 02/22/20 05:13 Hgb 9.5 gm/dl (11.8-15.2) L 02/22/20 05:13 Hct 27.6 % (35.5-45.6) L D 02/22/20 05:13 MCV 87 fl (84-94) 02/22/20 05:13 MCH 30 pg (28-32) 02/22/20 05:13 MCHC 34 % (32-34) 02/22/20 05:13 RDW 15.9 % (13.2-15.2) H 02/22/20 05:13 Plt Count 114 K/mm3 (140-440) L 02/22/20 05:13 Lymph % (Auto) 10.5 % (13.4-35.0) L 02/19/20 04:00 [place] % (Auto) 6.8 % (0.0-7.3) 02/19/20 04:00 Eos % (Auto) 0.4 % (0.0-4.3) 02/19/20 04:00 Baso % (Auto) 0.2 % (0.0-1.8) 02/19/20 04:00 Lymph # 1.8 K/mm3 (1.2-5.4) 02/19/20 04:00 [place] # 1.2 K/mm3 (0.0-0.8) H 02/19/20 04:00 Eos # 0.1 K/mm3 (0.0-0.4) 02/19/20 04:00 Baso # 0.0 K/mm3 (0.0-0.1) 02/19/20 04:00 Add Manual Diff Complete 02/17/20 16:28 Total Counted 100 02/17/20 16:28 Seg Neutrophils % 82.1 % (40.0-70.0) H 02/19/20 04:00 Seg Neuts % (Manual) 84.0 % (40.0-70.0) H 02/17/20 16:28 Band Neutrophils % 0 % 02/17/20 16:28 Lymphocytes % (Manual) 8.0 % (13.4-35.0) L 02/17/20 16:28 Reactive Lymphs % (Man) 0 % 02/17/20 16:28 Monocytes % (Manual) 8.0 % (0.0-7.3) H 02/17/20 16:28 Eosinophils % (Manual) 0 % (0.0-4.3) 02/17/20 16:28 Basophils % (Manual) 0 % (0.0-1.8) 02/17/20 16:28 Metamyelocytes % 0 % 02/17/20 16:28 Myelocytes % 0 % 02/17/20 16:28 Promyelocytes % 0 % 02/17/20 16:28 Blast Cells % 0 % 02/17/20 16:28 Nucleated RBC % Not Reportable 02/17/20 16:28 Seg Neutrophils # 14.5 K/mm3 (1.8-7.7) H 02/19/20 04:00 Seg Neutrophils # Man 19.7 K/mm3 (1.8-7.7) H 02/17/20 16:28 Band Neutrophils # 0.0 K/mm3 02/17/20 16:28 Lymphocytes # (Manual) 1.9 K/mm3 (1.2-5.4) 02/17/20 16:28 Abs React Lymphs (Man) 0.0 K/mm3 02/17/20 16:28 Monocytes # (Manual) 1.9 K/mm3 (0.0-0.8) H 02/17/20 16:28 Eosinophils # (Manual) 0.0 K/mm3 (0.0-0.4) 02/17/20 16:28 Basophils # (Manual) 0.0 K/mm3 (0.0-0.1) 02/17/20 16:28 Metamyelocytes # 0.0 K/mm3 02/17/20 16:28 Myelocytes # 0.0 K/mm3 02/17/20 16:28 Promyelocytes # 0.0 K/mm3 02/17/20 16:28 Blast Cells # 0.0 K/mm3 02/17/20 16:28 WBC Morphology Not Reportable 02/17/20 16:28 Hypersegmented Neuts Not Reportable 02/17/20 16:28 Hyposegmented Neuts Not Reportable 02/17/20 16:28 Hypogranular Neuts Not Reportable 02/17/20 16:28 Smudge Cells Not Reportable 02/17/20 16:28 Toxic Granulation Not Reportable 02/17/20 16:28 Toxic Vacuolation Not Reportable 02/17/20 16:28 Dohle Bodies Not Reportable 02/17/20 16:28 Pelger-Huet Anomaly Not Reportable 02/17/20 16:28 Krys Rods Not Reportable 02/17/20 16:28 Platelet Estimate Not Reportable 02/17/20 16:28 Clumped Platelets Not Reportable 02/17/20 16:28 Plt Clumps, EDTA Not Reportable 02/17/20 16:28 Large Platelets Not Reportable 02/17/20 16:28 Giant Platelets Not Reportable 02/17/20 16:28 Platelet Satelliting Not Reportable 02/17/20 16:28 Plt Morphology Comment Not Reportable 02/17/20 16:28 RBC Morphology Normal 02/17/20 16:28 Dimorphic RBCs Not Reportable 02/17/20 16:28 Polychromasia Not Reportable 02/17/20 16:28 Hypochromasia Not Reportable 02/17/20 16:28 Poikilocytosis Not Reportable 02/17/20 16:28 Anisocytosis Not Reportable 02/17/20 16:28 Microcytosis Not Reportable 02/17/20 16:28 Macrocytosis Not Reportable 02/17/20 16:28 Spherocytes Not Reportable 02/17/20 16:28 Pappenheimer Bodies Not Reportable 02/17/20 16:28 Sickle Cells Not Reportable 02/17/20 16:28 Target Cells Not Reportable 02/17/20 16:28 Tear Drop Cells Not Reportable 02/17/20 16:28 Ovalocytes Not Reportable 02/17/20 16:28 Helmet Cells Not Reportable 02/17/20 16:28 Lazo-Empire Bodies Not Reportable 02/17/20 16:28 [place] Rings Not Reportable 02/17/20 16:28 [place] Cells Not Reportable 02/17/20 16:28 Bite Cells Not Reportable 02/17/20 16:28 Crenated Cell Not Reportable 02/17/20 16:28 Elliptocytes Not Reportable 02/17/20 16:28 Acanthocytes (Spur) Not Reportable 02/17/20 16:28 Rouleaux Not Reportable 02/17/20 16:28 Hemoglobin C Crystals Not Reportable 02/17/20 16:28 Schistocytes Not Reportable 02/17/20 16:28 Malaria parasites Not Reportable 02/17/20 16:28 Keron Bodies Not Reportable 02/17/20 16:28 Hem Pathologist Commnt No 02/17/20 16:28 PT 18.6 Sec. (12.2-14.9) H 02/19/20 03:20 INR 1.53 (0.87-1.13) H 02/19/20 03:20 APTT 26.8 Sec. (24.2-36.6) 02/17/20 16:28 D-Dimer 1327.30 ng/mlDDU (0-234) H 02/20/20 17:20 Heparin Anti-Xa Level < 0.10 U.I./ml (0.3-0.7) L 02/21/20 15:41 ABG pH 7.355 pH Units (7.350-7.450) 02/19/20 05:08 ABG pCO2 27.3 mm Hg 02/19/20 05:08 ABG pO2 168.2 mm Hg (80.0-90.0) H 02/19/20 05:08 ABG HCO3 14.9 mmol/L (20.0-26.0) L 02/19/20 05:08 ABG O2 Saturation 99.0 % (95.0-99.0) 02/19/20 05:08 ABG O2 Content 11.7 (0.0-44) 02/19/20 05:08 ABG Base Excess -9.5 mmol/L (-2.0-3.0) L 02/19/20 05:08 ABG Hemoglobin 8.3 gm/dl (14.0-18.0) L 02/19/20 05:08 ABG Carboxyhemoglobin 1.2 % (0.0-5.0) 02/19/20 05:08 ABG Methemoglobin 0.7 % (0.0-1.5) 02/19/20 05:08 Oxyhemoglobin 97.2 % (95.0-99.0) 02/19/20 05:08 FiO2 40 % 02/19/20 05:08 Sodium 142 mmol/L (137-145) 02/22/20 05:13 Potassium 3.8 mmol/L (3.6-5.0) 02/22/20 05:13 Chloride 106.5 mmol/L (98-107) 02/22/20 05:13 Carbon Dioxide 22 mmol/L (22-30) 02/22/20 05:13 Anion Gap 17 mmol/L 02/22/20 05:13 BUN 52 mg/dL (9-20) H 02/22/20 05:13 Creatinine 2.3 mg/dL (0.8-1.3) H 02/22/20 05:13 Estimated GFR 34 ml/min 02/22/20 05:13 BUN/Creatinine Ratio 23 % 02/22/20 05:13 Glucose 103 mg/dL (75-100) H 02/22/20 05:13 POC Glucose 83 (70-105) 02/22/20 05:30 Lactic Acid 1.90 mmol/L (0.7-2.0) 02/17/20 22:56 Calcium 6.7 mg/dL (8.4-10.2) L 02/22/20 05:13 Ferritin 1191.0 ng/mL (30.0-300.0) H 02/17/20 16:28 Total Bilirubin 0.50 mg/dL (0.1-1.2) 02/17/20 16:28 AST 65 units/L (5-40) H 02/17/20 16:28 ALT 81 units/L (7-56) H 02/17/20 16:28 Alkaline Phosphatase 101 units/L (35-129) 02/17/20 16:28 Lactate Dehydrogenase 381 units/L (91-180) H 02/17/20 16:28 Total Creatine Kinase 865 units/L (55-170) H 02/22/20 05:13 CK-MB (CK-2) 78.0 ng/mL (0.0-4.0) H 02/18/20 10:10 CK-MB (CK-2) Rel Index 1.3 (0-4) 02/18/20 10:10 Troponin T 0.573 ng/mL (0.00-0.029) H* D 02/20/20 17:20 C-Reactive Protein 18.20 mg/dL (0.00-1.30) H 02/17/20 16:28 NT-Pro-B Natriuret Pep 1980 pg/mL (0-900) H 02/17/20 16:28 Total Protein 5.4 g/dL (6.3-8.2) L 02/17/20 16:28 Albumin 2.3 g/dL (3.9-5) L 02/17/20 16:28 Albumin/Globulin Ratio 0.7 % 02/17/20 16:28 Triglycerides 164 mg/dL (2-149) H 02/18/20 10:10 Cholesterol 133 mg/dL (50-199) 02/18/20 10:10 LDL Cholesterol Direct 71 mg/dL (50-130) 02/18/20 10:10 HDL Cholesterol 38 mg/dL (40-59) L 02/18/20 10:10 Cholesterol/HDL Ratio 3.50 % 02/18/20 10:10 Procalcitonin 6.74 ng/mL (<0.15) 02/17/20 16:28 TSH 3.490 mlU/mL (0.270-4.200) 02/17/20 16:28 Urine Color Yellow (Yellow) 02/17/20 Unknown Urine Turbidity Slightly-cloudy (Clear) 02/17/20 Unknown Urine pH 5.0 (5.0-7.0) 02/17/20 Unknown Ur Specific Dixon 1.010 (1.003-1.030) 02/17/20 Unknown Urine Protein 30 mg/dl mg/dL (Negative) 02/17/20 Unknown Urine Glucose (UA) Neg mg/dL (Negative) 02/17/20 Unknown Urine Ketones Neg mg/dL (Negative) 02/17/20 Unknown Urine Blood Mod (Negative) 02/17/20 Unknown Urine Nitrite Neg (Negative) 02/17/20 Unknown Urine Bilirubin Neg (Negative) 02/17/20 Unknown Urine Urobilinogen < 2.0 mg/dL (<2.0) 02/17/20 Unknown Ur Leukocyte Esterase Mod (Negative) 02/17/20 Unknown Urine WBC (Auto) 17.0 /HPF (0.0-6.0) H 02/17/20 Unknown Urine RBC (Auto) 17.0 /HPF (0.0-6.0) 02/17/20 Unknown U Epithel Cells (Auto) 4.0 /HPF (0-13.0) 02/17/20 Unknown Urine Bacteria (Auto) 1+ /HPF (Negative) 02/17/20 Unknown Urine Yeast (Budding) 2+ /HPF 02/17/20 Unknown Urine Eosinophils None seen (None Seen) 02/18/20 17:40 Urine Creatinine 35.2 mg/dL (0.1-20.0) H 02/18/20 17:40 Urine Microalbumin 5.9 mg/dL (0.1-34.0) 02/18/20 17:40 Microalb/Creat Ratio 167.6 ug/mg 02/18/20 17:40 Urine Sodium 104 mmol/L 02/18/20 17:40 Urine Chloride 81.0 mmolL (110-250) L 02/18/20 17:40 Urine Total Protein 38 mg/dL (5-11.8) H 02/18/20 17:40 Nasal Screen MRSA (PCR) Positive (Negative) 02/18/20 17:40 Random Vancomycin 14.6 ug/mL (0-40.0) 02/19/20 09:10 Coronavirus (PCR) Negative (Negative) 02/18/20 Unknown Blood Type B NEGATIVE 02/21/20 10:47 Antibody Screen Negative 02/21/20 10:47 Crossmatch See Detail 02/21/20 10:47 Microbiology: Microbiology 02/17/20 16:28 Peripheral/Venous Blood Culture - Preliminary NO GROWTH AFTER 4 DAYS 02/17/20 16:28 Peripheral/Venous Blood Culture - Preliminary NO GROWTH AFTER 4 DAYS - Diagnostic Impressions Diagnostic Impressions: Echocardiogram 02/19/20 15:05 Transthoracic Echocardiogram Indication: NSTEMI BP: 95/50 HR: 107 Conclusions *Global left ventricular systolic function is at the lower limits of normal. *The estimated ejection fraction is 45-50%. *Abnormal left ventricular diastolic filling is observed, consistent with impaired relaxation. *There is evidence of mild pulmonary hypertension. *There is no pericardial effusion. Findings Left Ventricle: The left ventricular chamber size is normal. Global left ventricular systolic function is at the lower limits of normal. The estimated ejection fraction is 45-50%. Abnormal left ventricular diastolic filling is observed, consistent with impaired relaxation. Left Atrium: The left atrial chamber size is normal. Right Ventricle: The right ventricular cavity size is normal. Right Atrium: The right atrial cavity size is normal. Aortic Valve: Mild aortic leaflet calcification is visualized. There is trace of aortic regurgitation. Mitral Valve: Mild mitral leaflet calcification is visualized. There is no evidence of mitral regurgitation. Tricuspid Valve: The tricuspid valve leaflets are normal. There is mild tricuspid regurgitation. The right ventricular systolic pressure is calculated at 40 mmHg. There is evidence of mild pulmonary hypertension. Pericardium: There is no pericardial effusion. Aorta: The aorta appears normal. Venous: The inferior vena cava appears normal. Measurements Chambers 2D Name Value Normal Range IVSd (2D) 1.09 cm (0.6 - 1.1) LVPWd (2D) 1 cm (0.6 - 1.1) LVIDd (2D) 3.55 cm (3.7 - 5.6) LVIDs (2D) 3 cm (2 - 3.8) LV FS (2D) 15.53 % - Ao root diameter (2D) 3.26 cm (2 - 3.7) Volumes/Mass Name Value Normal Range LA ESV SP 4CH (A/L) 17.3 ml - LA ESV SP 2CH (A/L) 18.3 ml - LA ESV BP (A/L) 19.14 ml - LA ESV BP (A/L) index 9.38 ml/m2 - LA ESV SP 4CH (MOD) 15.02 ml - LA ESV SP 2CH (MOD) 17.03 ml - LA ESV BP (MOD) 17.14 ml - LA ESV BP (MOD) index 8.4 ml/m2 - Diastolic/Systolic Function Name Value Normal Range MV E-wave Vmax 0.56 m/sec - MV deceleration time 197.94 msec - MV A-wave Vmax 1.36 m/sec - MV E:A ratio 0.41 ratio - Aortic Valve Name Value Normal Range AV Vmax 2.3 m/sec - AV VTI 33.77 cm - AV peak gradient 22.91 mmHg - AV mean gradient 12.27 mmHg - LVOT diameter 2.08 cm - LVOT Vmax 0.84 m/sec - LVOT VTI 14.82 cm - LVOT peak gradient 2.82 mmHg - LVOT mean gradient 2 mmHg - SV LVOT 50.44 ml - KALYAN (continuity Vmax) 1.24 cm2 - KALYAN (continuity VTI) 1.49 cm2 - AR PHT 460.84 msec - AR peak gradient 52.84 mmHg - Tricuspid Valve Name Value Normal Range TR Vmax 3.03 m/sec - TR peak gradient 37 mmHg - RAP 3 mmHg - RVSP 40 mmHg - Pulmonic Valve/Qp:Qs Name Value Normal Range PV acceleration time 106.57 msec - Yin/IV: Voiding Method Indwelling Catheter IV Catheter Type [Left Upper INT / Saline Lock arm] IV Catheter Type [Right Triple Lumen Cath Femoral] IV Catheter Type [Right INT / Saline Lock Antecubital] Active Medications - Current Medications Current Medications: Generic Name Dose Route Start Last Admin Trade Name Freq PRN Reason Stop Dose Admin Lipase/Protease/Amylase 1 each 02/21/20 12:12 Demond Simon 10,500 Unit FEEDTUBE PRN PRN For Clogged Feeding Tube Aspirin 81 mg 02/18/20 10:00 02/22/20 10:45 Baby Aspirin PO 81 mg DAILY LOS Administration Atorvastatin Calcium 20 mg 02/18/20 22:00 02/21/20 21:36 Lipitor PO 20 mg QHS LOS Administration Dextrose 50 ml 02/18/20 12:55 D50w (25gm) Syringe IV Q30MIN PRN Hypoglycemia Protocol Docusate Sodium 100 mg 02/20/20 12:00 02/22/20 10:45 Colace PO 100 mg BID LOS Administration Famotidine 20 mg 02/18/20 10:00 02/22/20 10:45 Pepcid IV 20 mg DAILY LOS Administration Hydrophilic Ointment 1 applic 02/17/20 15:12 Vaseline Lip Therapy TP Q2HR PRN Dry Lips Norepinephrine 4 mg in 250 mls @ 7.5 mls/hr 02/17/20 20:00 02/21/20 21:42 Levophed Drip 4 Mg/Ns 250 Ml IV 0 mcg/min TITR LOS 0 mls/hr Titration Protocol 2 MCG/MIN Cefepime HCl 2 gm in 100 mls @ 200 mls/hr 02/18/20 09:00 02/22/20 10:45 Cefepime/Ns 2 Gm/100 Ml IV 02/25/20 10:29 200 mls/hr Q24HR LOS Administration Protocol Vasopressin 20 unit/ Sodium 101 mls @ 9.09 mls/hr 02/18/20 10:00 02/21/20 17 :10 Chloride IV Infused TITR LOS Titration Protocol 0.03 UNITS/MIN Insulin Human Regular 0 unit 02/18/20 13:00 02/22/20 13:53 Humulin R SUB-Q Not Given Q6HR LOS Protocol Magnesium Hydroxide 30 ml 02/18/20 02:31 Milk Of Magnesia PO Q4H PRN Constipation Multi-Ingred Cream/Lotion/Oil/Oint 1 applic 02/17/20 15:12 02/19/20 04:25 Artificial Tears Ophth Oint OU 1 applic Q4HR PRN Administration Dry Eye(s) Simple Syrup 15 ml 02/21/20 12:12 Simple Syrup FEEDTUBE PRN PRN Hypoglycemia Simple Syrup 30 ml 02/21/20 12:12 Simple Syrup FEEDTUBE PRN PRN Hypoglycemia Sodium Bicarbonate 325 mg 02/21/20 12:12 Sodium Bicarbonate FEEDTUBE PRN PRN For Clogged Feeding Tube Sodium Chloride 10 ml 02/18/20 10:00 02/22/20 10:45 Sodium Chloride Flush Syringe 10 Ml IV 10 ml BID LOS Administration Sodium Chloride 10 ml 02/18/20 02:31 Sodium Chloride Flush Syringe 10 Ml IV PRN PRN LINE FLUSH Nutrition/Malnutrition Assess - Dietary Evaluation Nutrition/Malnutrition Findings: Nutrition Notes Start: 02/18/20 10:34 Freq: Status: Active Protocol: Document 02/21/20 11:53 KALE (Rec: 02/21/20 12:12 KALE [id number]) Co-Sign 02/21/20 11:53 LP Nutrition Notes Need for Assessment generated from: MD Order Initial or Follow up Reassessment Current Diagnosis CKD(stage I-IV),Diabetes, Sepsis,Hypertension,Stroke Other Pertinent Diagnosis Dementia, UTI Current Diet No diet order Labs/Tests BUN 54 Cr 3.7 Pertinent Medications Levophed Height 6 ft Weight 86.1 kg [place] Body Weight (kg) 80.90 BMI 25.7 Weight Status Appropriate Subjective/Other Information Pt on vent. approved TF at rounds. Burn Absent Trauma Absent GI Symptoms None Usual Diet at Home unknown Skin Integrity/Comment Multiple pressure ulcers Current % PO Negligible Minimum of two criteria No physical signs of malnutrition #2 Nutrition Diagnosis Increased nutrient needs ( specify in comment below) Comments: protein Etiology r/t pressure ulcers As Evidenced by Signs and Symptoms RN documented multiple pressure ulcers from Stage 3 to unstagable. #1 Nutrition Diagnosis Inadequate oral intake Etiology ARF As Evidenced by Signs and Symptoms Pt on vent and unable to consume PO Diagnosis Progress(for reassessment Continues documentation) Is patient on ventilator? Yes Is Patient Ambulatory and/or Out of Bed No REE-(Home-St. Jeor-confined to bed) 0117.328 Calculation Used for Recommendations [facility] Additional Notes Protein needs are 103-172g (1. 2-2g/kg) Fluid needs are 1ml/kcal Nutrition Intervention Change Diet Order: Tube feeding Nutrition Support: Nepro at 45ml/hr Flush at 200ml q4hr Kcal 1,944 Protein (gm) 87 Fluid (mL) 785 % RDI: 100 Add Supplement/Snack (indicate name/kcal Bello BID /protein ) Provides kCal: 95 Provides Protein (gm) 5 Goal #1 Pt will tolerate TF Goal #2 Pt will meet 75-100% of energy needs within 3 days. Goal #3 Pt will receive Bello BID Anticipated Discharge Needs: Unable to determine at this time Follow-Up By: 02/23/20 Additional Comments Check TF and Bello adminstration
[2020-02-23] MEDS: INSULIN REGULAR, HUMAN 100 UNIT/ML 3ML VIAL SUB-Q SCH ×4 (01:00→18:32)
[2020-02-23 06:15] LABS: Hematocrit 27.6 % (35.5-45.6); Hemoglobin 9.4 gm/dl (11.8-15.2); Mean Corpuscular HGB Conc 34 % (32-34); Mean Corpuscular Volume 88 fl (84-94); Platelet Count 97 K/mm3 (140-440); Red Blood Count 3.15 M/mm3 (3.65-5.03); Red Cell Distribution Width 15.9 % (13.2-15.2)
--- NOTE | 2020-02-23 08:56 | Progress Note ---
Assessment and Plan 74 y/o male with known dementia, mumbles very few words at baseline if any, blank stares, admitted with altered mental status, respiratory failure, worsening renal failure and sepsis with shock 1. Pulm-extubated on nasal cannula. Ordered NT suction qshift. 2. CV- Hypotension responded well to PRBC transfusion. Reviewed Cardiology n otes. 3. Renal- CK dropping but appears Cr and BUN may have become stagnet. Await renal recs for today. 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 Not for COVID 4. Suggest having conversation with sister about end of life. Second hospital stay in less than 30 days with very similar presentation. Not sure how many more times patient can go through this and survive. 5. Will see as needed. Subjective Date of service: 02/23/20 Principal diagnosis: Septic Shock Interval history: Successful transfer to floor. STable on nasal cannula therapy. Objective Vital Signs - 12hr 02/22/20 02/22/20 02/22/20 21:00 21:11 22:05 Temperature 98.0 F Pulse Rate 73 85 83 Respiratory 26 H 27 H 18 Rate Blood Pressure 111/59 111/59 Blood Pressure 101/57 [Right] O2 Sat by Pulse 98 98 97 Oximetry 02/23/20 02/23/20 02/23/20 00:00 00:01 03:55 Temperature 98.1 F 98.6 F Pulse Rate 92 H 77 80 Respiratory 18 19 Rate Blood Pressure 105/61 104/60 Blood Pressure [Right] O2 Sat by Pulse 98 98 Oximetry 02/23/20 07:39 Temperature 99.7 F H Pulse Rate 83 Respiratory 24 Rate Blood Pressure 111/50 Blood Pressure [Right] O2 Sat by Pulse 99 Oximetry Constitutional: alert ENT: other (orally intubated critically ill on vent) Neck: supple Effort: mildly labored Ascultation: Bilateral: clear, diminished breath sounds Percussion: Bilateral: not dull Cardiovascular: other (sinus tachycardia) Neurologic: unable to assess CBC and BMP: 02/23/20 05:36 02/23/20 05:36 ABG, PT/INR, D-dimer: ABG ABG pH 7.355 pH Units (7.350-7.450) 02/19/20 05:08 ABG pCO2 27.3 mm Hg 02/19/20 05:08 ABG pO2 168.2 mm Hg (80.0-90.0) H 02/19/20 05:08 ABG O2 Saturation 99.0 % (95.0-99.0) 02/19/20 05:08 PT/INR, D-dimer PT 18.6 Sec. (12.2-14.9) H 02/19/20 03:20 INR 1.53 (0.87-1.13) H 02/19/20 03:20 D-Dimer 1327.30 ng/mlDDU (0-234) H 02/20/20 17:20 Abnormal lab findings: Abnormal Labs 02/17/20 02/17/20 02/17/20 16:28 16:28 16:28 WBC 23.5 H RBC 3.07 L Hgb 9.1 L Hct 28.4 L RDW 16.8 H Plt Count Lymph % (Auto) [place] # Seg Neutrophils % Seg Neuts % (Manual) 84.0 H Lymphocytes % (Manual) 8.0 L Monocytes % (Manual) 8.0 H Seg Neutrophils # Seg Neutrophils # Man 19.7 H Monocytes # (Manual) 1.9 H PT 15.3 H INR 1.19 H D-Dimer Heparin Anti-Xa Level ABG pH ABG pO2 ABG HCO3 ABG O2 Saturation ABG Base Excess ABG Hemoglobin Sodium 136 L Potassium 5.4 H Chloride Carbon Dioxide 15 L BUN 91 H Creatinine 3.7 H D Glucose 120 H POC Glucose Lactic Acid Calcium 7.9 L Ferritin AST 65 H ALT 81 H Lactate Dehydrogenase Total Creatine Kinase CK-MB (CK-2) Troponin T C-Reactive Protein NT-Pro-B Natriuret Pep Total Protein 5.4 L Albumin 2.3 L Triglycerides HDL Cholesterol Urine WBC (Auto) Urine Creatinine Urine Chloride Urine Total Protein Crossmatch 02/17/20 02/17/20 02/17/20 16:28 16:28 16:28 WBC RBC Hgb Hct RDW Plt Count Lymph % (Auto) [place] # Seg Neutrophils % Seg Neuts % (Manual) Lymphocytes % (Manual) Monocytes % (Manual) Seg Neutrophils # Seg Neutrophils # Man Monocytes # (Manual) PT INR D-Dimer > 65243 H Heparin Anti-Xa Level ABG pH ABG pO2 ABG HCO3 ABG O2 Saturation ABG Base Excess ABG Hemoglobin Sodium Potassium Chloride Carbon Dioxide BUN Creatinine Glucose POC Glucose Lactic Acid 2.70 H* Calcium Ferritin AST ALT Lactate Dehydrogenase Total Creatine Kinase CK-MB (CK-2) Troponin T 0.748 H* C-Reactive Protein NT-Pro-B Natriuret Pep 1980 H Total Protein Albumin Triglycerides HDL Cholesterol Urine WBC (Auto) Urine Creatinine Urine Chloride Urine Total Protein Crossmatch 02/17/20 02/17/20 02/17/20 16:28 16:28 18:35 WBC RBC Hgb Hct RDW Plt Count Lymph % (Auto) [place] # Seg Neutrophils % Seg Neuts % (Manual) Lymphocytes % (Manual) Monocytes % (Manual) Seg Neutrophils # Seg Neutrophils # Man Monocytes # (Manual) PT INR D-Dimer Heparin Anti-Xa Level ABG pH 7.303 L ABG pO2 327.3 H ABG HCO3 12.5 L ABG O2 Saturation 99.5 H ABG Base Excess -12.3 L ABG Hemoglobin 11.2 L Sodium Potassium Chloride Carbon Dioxide BUN Creatinine Glucose POC Glucose Lactic Acid Calcium Ferritin 1191.0 H AST ALT Lactate Dehydrogenase 381 H Total Creatine Kinase CK-MB (CK-2) Troponin T C-Reactive Protein 18.20 H NT-Pro-B Natriuret Pep Total Protein Albumin Triglycerides HDL Cholesterol Urine WBC (Auto) Urine Creatinine Urine Chloride Urine Total Protein Crossmatch 02/17/20 02/18/20 02/18/20 Unknown 05:20 10:10 WBC RBC Hgb Hct RDW Plt Count Lymph % (Auto) [place] # Seg Neutrophils % Seg Neuts % (Manual) Lymphocytes % (Manual) Monocytes % (Manual) Seg Neutrophils # Seg Neutrophils # Man Monocytes # (Manual) PT INR D-Dimer Heparin Anti-Xa Level ABG pH 7.217 L ABG pO2 165.7 H ABG HCO3 10.5 L ABG O2 Saturation ABG Base Excess -15.7 L ABG Hemoglobin 10.3 L Sodium Potassium Chloride Carbon Dioxide BUN Creatinine Glucose POC Glucose Lactic Acid Calcium Ferritin AST ALT Lactate Dehydrogenase Total Creatine Kinase 5660 H CK-MB (CK-2) 78.0 H Troponin T 1.030 H* D C-Reactive Protein NT-Pro-B Natriuret Pep Total Protein Albumin Triglycerides 164 H HDL Cholesterol 38 L Urine WBC (Auto) 17.0 H Urine Creatinine Urine Chloride Urine Total Protein Crossmatch 02/18/20 02/18/20 02/18/20 12:14 17:32 17:40 WBC RBC Hgb Hct RDW Plt Count Lymph % (Auto) [place] # Seg Neutrophils % Seg Neuts % (Manual) Lymphocytes % (Manual) Monocytes % (Manual) Seg Neutrophils # Seg Neutrophils # Man Monocytes # (Manual) PT INR D-Dimer Heparin Anti-Xa Level ABG pH ABG pO2 ABG HCO3 ABG O2 Saturation ABG Base Excess ABG Hemoglobin Sodium Potassium Chloride Carbon Dioxide BUN Creatinine Glucose POC Glucose 193 H 191 H Lactic Acid Calcium Ferritin AST ALT Lactate Dehydrogenase Total Creatine Kinase CK-MB (CK-2) Troponin T C-Reactive Protein NT-Pro-B Natriuret Pep Total Protein Albumin Triglycerides HDL Cholesterol Urine WBC (Auto) Urine Creatinine 35.2 H Urine Chloride 81.0 L Urine Total Protein 38 H Crossmatch 02/18/20 02/19/20 02/19/20 17:40 00:04 01:50 WBC RBC Hgb Hct RDW Plt Count Lymph % (Auto) [place] # Seg Neutrophils % Seg Neuts % (Manual) Lymphocytes % (Manual) Monocytes % (Manual) Seg Neutrophils # Seg Neutrophils # Man Monocytes # (Manual) PT INR D-Dimer Heparin Anti-Xa Level 0.18 L ABG pH ABG pO2 ABG HCO3 ABG O2 Saturation ABG Base Excess ABG Hemoglobin Sodium Potassium Chloride 111.4 H Carbon Dioxide 11 L BUN 77 H Creatinine 2.8 H Glucose 168 H POC Glucose 145 H Lactic Acid Calcium 7.2 L Ferritin AST ALT Lactate Dehydrogenase Total Creatine Kinase CK-MB (CK-2) Troponin T C-Reactive Protein NT-Pro-B Natriuret Pep Total Protein Albumin Triglycerides HDL Cholesterol Urine WBC (Auto) Urine Creatinine Urine Chloride Urine Total Protein Crossmatch 02/19/20 02/19/20 02/19/20 03:20 04:00 05:08 WBC 17.6 H RBC 2.76 L Hgb 8.1 L Hct 25.0 L RDW 16.6 H Plt Count Lymph % (Auto) 10.5 L [place] # 1.2 H Seg Neutrophils % 82.1 H Seg Neuts % (Manual) Lymphocytes % (Manual) Monocytes % (Manual) Seg Neutrophils # 14.5 H Seg Neutrophils # Man Monocytes # (Manual) PT 18.6 H INR 1.53 H D-Dimer Heparin Anti-Xa Level ABG pH ABG pO2 168.2 H ABG HCO3 14.9 L ABG O2 Saturation ABG Base Excess -9.5 L ABG Hemoglobin 8.3 L Sodium Potassium Chloride Carbon Dioxide BUN Creatinine Glucose POC Glucose Lactic Acid Calcium Ferritin AST ALT Lactate Dehydrogenase Total Creatine Kinase CK-MB (CK-2) Troponin T C-Reactive Protein NT-Pro-B Natriuret Pep Total Protein Albumin Triglycerides HDL Cholesterol Urine WBC (Auto) Urine Creatinine Urine Chloride Urine Total Protein Crossmatch 02/19/20 02/19/20 02/19/20 05:38 05:50 09:10 WBC RBC Hgb Hct RDW Plt Count Lymph % (Auto) [place] # Seg Neutrophils % Seg Neuts % (Manual) Lymphocytes % (Manual) Monocytes % (Manual) Seg Neutrophils # Seg Neutrophils # Man Monocytes # (Manual) PT INR D-Dimer Heparin Anti-Xa Level ABG pH ABG pO2 ABG HCO3 ABG O2 Saturation ABG Base Excess ABG Hemoglobin Sodium Potassium Chloride 111.6 H 111.9 H Carbon Dioxide 14 L 15 L BUN 69 H 68 H Creatinine 2.6 H 2.5 H Glucose 151 H 154 H POC Glucose 143 H Lactic Acid Calcium 7.4 L 7.2 L Ferritin AST ALT Lactate Dehydrogenase Total Creatine Kinase 3552 H CK-MB (CK-2) Troponin T C-Reactive Protein NT-Pro-B Natriuret Pep Total Protein Albumin Triglycerides HDL Cholesterol Urine WBC (Auto) Urine Creatinine Urine Chloride Urine Total Protein Crossmatch 02/19/20 02/19/20 02/19/20 11:41 12:00 17:46 WBC RBC Hgb Hct RDW Plt Count Lymph % (Auto) [place] # Seg Neutrophils % Seg Neuts % (Manual) Lymphocytes % (Manual) Monocytes % (Manual) Seg Neutrophils # Seg Neutrophils # Man Monocytes # (Manual) PT INR D-Dimer Heparin Anti-Xa Level 0.11 L ABG pH ABG pO2 ABG HCO3 ABG O2 Saturation ABG Base Excess ABG Hemoglobin Sodium Potassium Chloride Carbon Dioxide BUN Creatinine Glucose POC Glucose 160 H 133 H Lactic Acid Calcium Ferritin AST ALT Lactate Dehydrogenase Total Creatine Kinase CK-MB (CK-2) Troponin T C-Reactive Protein NT-Pro-B Natriuret Pep Total Protein Albumin Triglycerides HDL Cholesterol Urine WBC (Auto) Urine Creatinine Urine Chloride Urine Total Protein Crossmatch 02/19/20 02/19/20 02/20/20 20:02 23:50 04:44 WBC RBC 2.64 L Hgb 7.9 L Hct 24.1 L RDW 16.3 H Plt Count 137 L Lymph % (Auto) [place] # Seg Neutrophils % Seg Neuts % (Manual) Lymphocytes % (Manual) Monocytes % (Manual) Seg Neutrophils # Seg Neutrophils # Man Monocytes # (Manual) PT INR D-Dimer Heparin Anti-Xa Level 0.12 L ABG pH ABG pO2 ABG HCO3 ABG O2 Saturation ABG Base Excess ABG Hemoglobin Sodium Potassium Chloride Carbon Dioxide BUN Creatinine Glucose POC Glucose 128 H Lactic Acid Calcium Ferritin AST ALT Lactate Dehydrogenase Total Creatine Kinase CK-MB (CK-2) Troponin T C-Reactive Protein NT-Pro-B Natriuret Pep Total Protein Albumin Triglycerides HDL Cholesterol Urine WBC (Auto) Urine Creatinine Urine Chloride Urine Total Protein Crossmatch 02/20/20 02/20/20 02/20/20 04:44 04:44 10:00 WBC RBC Hgb Hct RDW Plt Count Lymph % (Auto) [place] # Seg Neutrophils % Seg Neuts % (Manual) Lymphocytes % (Manual) Monocytes % (Manual) Seg Neutrophils # Seg Neutrophils # Man Monocytes # (Manual) PT INR D-Dimer Heparin Anti-Xa Level 0.15 L < 0.10 L ABG pH ABG pO2 ABG HCO3 ABG O2 Saturation ABG Base Excess ABG Hemoglobin Sodium Potassium Chloride 110.4 H Carbon Dioxide 19 L BUN 61 H Creatinine 2.4 H Glucose POC Glucose Lactic Acid Calcium 7.3 L Ferritin AST ALT Lactate Dehydrogenase Total Creatine Kinase 2238 H CK-MB (CK-2) Troponin T C-Reactive Protein NT-Pro-B Natriuret Pep Total Protein Albumin Triglycerides HDL Cholesterol Urine WBC (Auto) Urine Creatinine Urine Chloride Urine Total Protein Crossmatch 02/20/20 02/20/20 02/20/20 12:58 17:20 17:20 WBC RBC Hgb Hct RDW Plt Count Lymph % (Auto) [place] # Seg Neutrophils % Seg Neuts % (Manual) Lymphocytes % (Manual) Monocytes % (Manual) Seg Neutrophils # Seg Neutrophils # Man Monocytes # (Manual) PT INR D-Dimer 1327.30 H Heparin Anti-Xa Level 0.17 L ABG pH ABG pO2 ABG HCO3 ABG O2 Saturation ABG Base Excess ABG Hemoglobin Sodium Potassium Chloride Carbon Dioxide BUN Creatinine Glucose POC Glucose 123 H Lactic Acid Calcium Ferritin AST ALT Lactate Dehydrogenase Total Creatine Kinase CK-MB (CK-2) Troponin T C-Reactive Protein NT-Pro-B Natriuret Pep Total Protein Albumin Triglycerides HDL Cholesterol Urine WBC (Auto) Urine Creatinine Urine Chloride Urine Total Protein Crossmatch 02/20/20 02/20/20 02/20/20 17:20 18:11 23:52 WBC RBC Hgb Hct RDW Plt Count Lymph % (Auto) [place] # Seg Neutrophils % Seg Neuts % (Manual) Lymphocytes % (Manual) Monocytes % (Manual) Seg Neutrophils # Seg Neutrophils # Man Monocytes # (Manual) PT INR D-Dimer Heparin Anti-Xa Level ABG pH ABG pO2 ABG HCO3 ABG O2 Saturation ABG Base Excess ABG Hemoglobin Sodium Potassium Chloride Carbon Dioxide BUN Creatinine Glucose POC Glucose 156 H 153 H Lactic Acid Calcium Ferritin AST ALT Lactate Dehydrogenase Total Creatine Kinase CK-MB (CK-2) Troponin T 0.573 H* D C-Reactive Protein NT-Pro-B Natriuret Pep Total Protein Albumin Triglycerides HDL Cholesterol Urine WBC (Auto) Urine Creatinine Urine Chloride Urine Total Protein Crossmatch 02/21/20 02/21/20 02/21/20 04:39 04:39 05:12 WBC RBC 2.35 L Hgb 6.9 L Hct 21.1 L RDW 16.2 H Plt Count 126 L Lymph % (Auto) [place] # Seg Neutrophils % Seg Neuts % (Manual) Lymphocytes % (Manual) Monocytes % (Manual) Seg Neutrophils # Seg Neutrophils # Man Monocytes # (Manual) PT INR D-Dimer Heparin Anti-Xa Level ABG pH ABG pO2 ABG HCO3 ABG O2 Saturation ABG Base Excess ABG Hemoglobin Sodium Potassium Chloride Carbon Dioxide BUN 54 H Creatinine 2.2 H Glucose 120 H POC Glucose 139 H Lactic Acid Calcium 6.8 L Ferritin AST ALT Lactate Dehydrogenase Total Creatine Kinase 1488 H CK-MB (CK-2) Troponin T C-Reactive Protein NT-Pro-B Natriuret Pep Total Protein Albumin Triglycerides HDL Cholesterol Urine WBC (Auto) Urine Creatinine Urine Chloride Urine Total Protein Crossmatch 02/21/20 02/21/20 02/21/20 10:47 13:24 15:41 WBC RBC Hgb Hct RDW Plt Count Lymph % (Auto) [place] # Seg Neutrophils % Seg Neuts % (Manual) Lymphocytes % (Manual) Monocytes % (Manual) Seg Neutrophils # Seg Neutrophils # Man Monocytes # (Manual) PT INR D-Dimer Heparin Anti-Xa Level < 0.10 L ABG pH ABG pO2 ABG HCO3 ABG O2 Saturation ABG Base Excess ABG Hemoglobin Sodium Potassium Chloride Carbon Dioxide BUN Creatinine Glucose POC Glucose 107 H Lactic Acid Calcium Ferritin AST ALT Lactate Dehydrogenase Total Creatine Kinase CK-MB (CK-2) Troponin T C-Reactive Protein NT-Pro-B Natriuret Pep Total Protein Albumin Triglycerides HDL Cholesterol Urine WBC (Auto) Urine Creatinine Urine Chloride Urine Total Protein Crossmatch See Detail 02/22/20 02/22/20 02/22/20 05:13 05:13 12:24 WBC RBC 3.18 L Hgb 9.5 L Hct 27.6 L D RDW 15.9 H Plt Count 114 L Lymph % (Auto) [place] # Seg Neutrophils % Seg Neuts % (Manual) Lymphocytes % (Manual) Monocytes % (Manual) Seg Neutrophils # Seg Neutrophils # Man Monocytes # (Manual) PT INR D-Dimer Heparin Anti-Xa Level ABG pH ABG pO2 ABG HCO3 ABG O2 Saturation ABG Base Excess ABG Hemoglobin Sodium Potassium Chloride Carbon Dioxide BUN 52 H Creatinine 2.3 H Glucose 103 H POC Glucose 122 H Lactic Acid Calcium 6.7 L Ferritin AST ALT Lactate Dehydrogenase Total Creatine Kinase 865 H CK-MB (CK-2) Troponin T C-Reactive Protein NT-Pro-B Natriuret Pep Total Protein Albumin Triglycerides HDL Cholesterol Urine WBC (Auto) Urine Creatinine Urine Chloride Urine Total Protein Crossmatch 02/22/20 02/23/20 02/23/20 17:17 05:27 05:36 WBC RBC 3.15 L Hgb 9.4 L Hct 27.6 L RDW 15.9 H Plt Count 97 L Lymph % (Auto) [place] # Seg Neutrophils % Seg Neuts % (Manual) Lymphocytes % (Manual) Monocytes % (Manual) Seg Neutrophils # Seg Neutrophils # Man Monocytes # (Manual) PT INR D-Dimer Heparin Anti-Xa Level ABG pH ABG pO2 ABG HCO3 ABG O2 Saturation ABG Base Excess ABG Hemoglobin Sodium Potassium Chloride Carbon Dioxide BUN Creatinine Glucose POC Glucose 165 H 120 H Lactic Acid Calcium Ferritin AST ALT Lactate Dehydrogenase Total Creatine Kinase CK-MB (CK-2) Troponin T C-Reactive Protein NT-Pro-B Natriuret Pep Total Protein Albumin Triglycerides HDL Cholesterol Urine WBC (Auto) Urine Creatinine Urine Chloride Urine Total Protein Crossmatch 02/23/20 05:36 WBC RBC Hgb Hct RDW Plt Count Lymph % (Auto) [place] # Seg Neutrophils % Seg Neuts % (Manual) Lymphocytes % (Manual) Monocytes % (Manual) Seg Neutrophils # Seg Neutrophils # Man Monocytes # (Manual) PT INR D-Dimer Heparin Anti-Xa Level ABG pH ABG pO2 ABG HCO3 ABG O2 Saturation ABG Base Excess ABG Hemoglobin Sodium Potassium 3.0 L D Chloride Carbon Dioxide BUN 53 H Creatinine 2.3 H Glucose 115 H POC Glucose Lactic Acid Calcium 7.0 L Ferritin AST ALT Lactate Dehydrogenase Total Creatine Kinase 476 H CK-MB (CK-2) Troponin T C-Reactive Protein NT-Pro-B Natriuret Pep Total Protein Albumin Triglycerides HDL Cholesterol Urine WBC (Auto) Urine Creatinine Urine Chloride Urine Total Protein Crossmatch
[2020-02-23] MEDS: DOCUSATE SODIUM 100 MG/10 ML ORAL LIQD PO SCH ×2 (09:44→21:37)
[2020-02-23] MEDS: CEFEPIME/NS 2 GM/100 ML 2 GM/100 ML BAG IV SCH (09:44)
[2020-02-23] MEDS: POTASSIUM CHLORIDE 20 MEQ PACKET FEEDTUBE SCH ×2 (09:44→21:37)
[2020-02-23] MEDS: ASPIRIN 81 MG TAB CHEW PO SCH (09:44)
[2020-02-23] MEDS: FAMOTIDINE 20 MG/2 ML INJ IV SCH (09:44)
--- NOTE | 2020-02-23 13:58 | Progress Note ---
Assessment and Plan Assessment: Acute hypoxic respiratory failure Septic Shock 2/2 PNA Bilateral PNA Acute Kidney Injury 2/2 ischemic ATN from septic shock, Rhabdo, on underlying CKD, r/o obstruction Elevated D-Dimers Plan: - Renal function reviewed, SCr level was 2.3 today, yesterday's SCr level was 2.3 - Review of labs in 2015 in [facility] did show SCr level between 1.6-1.8 - S/P D5W +150 mEq sodium bicarbonate infusion at 75 ml/hr - CK level was elevated so could have AMMY from contribution from Rhabdo as well - On vasopressin drip - Trend daily CK levels - CK level 476 today, trending downward - Renal ultrasound-chronic medical renal disease. 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 Objective - Vital Signs Vital signs: Vital Signs - 12hr 02/23/20 02/23/20 02/23/20 03:55 07:39 08:00 Temperature 98.6 F 99.7 F H Pulse Rate 80 83 75 Pulse Rate [ Left Radial] Pulse Rate [ Right Radial] Respiratory 19 24 Rate Blood Pressure 104/60 111/50 O2 Sat by Pulse 98 99 Oximetry 02/23/20 02/23/20 02/23/20 09:42 10:00 11:53 Temperature 98.3 F Pulse Rate 88 78 Pulse Rate [ 83 Left Radial] Pulse Rate [ 83 Right Radial] Respiratory 21 22 Rate Blood Pressure 95/60 85/45 O2 Sat by Pulse 100 97 Oximetry - Lab 02/23/20 05:36 02/23/20 05:36 Most recent lab results ABG pH 7.355 pH Units (7.350-7.450) 02/19/20 05:08 ABG pCO2 27.3 mm Hg 02/19/20 05:08 ABG pO2 168.2 mm Hg (80.0-90.0) H 02/19/20 05:08 ABG HCO3 14.9 mmol/L (20.0-26.0) L 02/19/20 05:08 ABG O2 Saturation 99.0 % (95.0-99.0) 02/19/20 05:08 Calcium 7.0 mg/dL (8.4-10.2) L 02/23/20 05:36 Magnesium 1.20 mg/dL (1.7-2.3) L 02/23/20 05:36 Urine Creatinine 35.2 mg/dL (0.1-20.0) H 02/18/20 17:40 Urine Sodium 104 mmol/L 02/18/20 17:40 Urine Total Protein 38 mg/dL (5-11.8) H 02/18/20 17:40 Medications & Allergies - Medications Allergies/Adverse Reactions: Allergies No Known Allergies Allergy (Unverified 05/01/15 23:41) Home Medications: Home Medications Medication Instructions Recorded Confirmed Last Taken Type Acetaminophen [Acetaminophen TAB] 650 mg PO Q8H PRN 05/02/15 02/18/20 Unknown History Albuterol Sulfate [Albuterol 0.63% 0.63 mg IH Q6H PRN 05/02/15 02/18/20 Unknown History NEBS] Aspirin [Aspirin BABY CHEW TAB] 81 mg PO DAILY 05/02/15 02/18/20 05/01/15 History AtorvaSTATin [Lipitor] 20 mg PO QHS 05/02/15 02/18/20 05/01/15 History Docusate Sodium [Colace CAP] 100 mg PO BID 05/02/15 02/18/20 05/02/15 History Insulin Lispro [HumaLOG VIAL] See Protocol SUB-Q ACHS 05/02/15 02/18/20 05/01/15 History amLODIPine 5 mg PO DAILY 05/02/15 02/18/20 05/01/15 History Active Medications: Generic Name Dose Route Start Last Admin Trade Name Freq PRN Reason Stop Dose Admin Lipase/Protease/Amylase 1 each 02/21/20 12:12 Pancrecristiane Simon 10,500 Unit FEEDTUBE PRN PRN For Clogged Feeding Tube Aspirin 81 mg 02/18/20 10:00 02/23/20 09:44 Baby Aspirin PO 81 mg DAILY LOS Administration Atorvastatin Calcium 20 mg 02/18/20 22:00 02/22/20 23:10 Lipitor PO 20 mg QHS LOS Administration Dextrose 50 ml 02/18/20 12:55 D50w (25gm) Syringe IV Q30MIN PRN Hypoglycemia Protocol Docusate Sodium 100 mg 02/20/20 12:00 02/23/20 09:44 Colace PO 100 mg BID LOS Administration Hydrophilic Ointment 1 applic 02/17/20 15:12 Vaseline Lip Therapy TP Q2HR PRN Dry Lips Cefepime HCl 2 gm in 100 mls @ 200 mls/hr 02/18/20 09:00 02/23/20 09:44 Cefepime/Ns 2 Gm/100 Ml IV 02/25/20 10:29 200 mls/hr Q24HR LOS Administration Protocol Vasopressin 20 unit/ Sodium 101 mls @ 9.09 mls/hr 02/18/20 10:00 02/21/20 17:10 Chloride IV Infused TITR LOS Titration Protocol 0.03 UNITS/MIN Insulin Human Regular 0 unit 02/18/20 13:00 02/23/20 12:24 Humulin R SUB-Q 3 unit Q6HR LOS Administration Protocol Magnesium Hydroxide 30 ml 02/18/20 02:31 Milk Of Magnesia PO Q4H PRN Constipation Multi-Ingred Cream/Lotion/Oil/Oint 1 applic 02/17/20 15:12 02/19/20 04:25 Artificial Tears Ophth Oint OU 1 applic Q4HR PRN Administration Dry Eye(s) Potassium Chloride 40 meq 02/23/20 10:00 02/23/20 09:44 Potassium Chloride FEEDTUBE 40 meq BID LOS Administration Simple Syrup 15 ml 02/21/20 12:12 Simple Syrup FEEDTUBE PRN PRN Hypoglycemia Simple Syrup 30 ml 02/21/20 12:12 Simple Syrup FEEDTUBE PRN PRN Hypoglycemia Sodium Bicarbonate 325 mg 02/21/20 12:12 Sodium Bicarbonate FEEDTUBE PRN PRN For Clogged Feeding Tube Sodium Chloride 10 ml 02/18/20 10:00 02/23/20 09:45 Sodium Chloride Flush Syringe 10 Ml IV 10 ml BID LOS Administration Sodium Chloride 10 ml 02/18/20 02:31 Sodium Chloride Flush Syringe 10 Ml IV PRN PRN LINE FLUSH
--- NOTE | 2020-02-23 14:59 | Progress Note ---
Assessment and Plan Cultures: Coronavirus PCR 02/05/2020: Negative Coronavirus PCR 02/10/2020: Negative Coronavirus PCR 02/18/2020: Negative MRSA nasal PCR 02/05/2020: Positive 02/04/2020 blood culture: No growth 02/04/2020 tracheal aspirate: Proteus, Hemophilus, MRSA 02/14/2020 blood culture: No growth 02/17/2020 tracheal aspirate: normal resp demetrius 02/17/2020 blood culture: No growth today A/P: 74 y/o male with history of CVA with left hemiparesis, diabetes mellitus, hypertension, dyslipidemia, dementia and peripheral vascular disease, from [facility], recent COVID, admitted on due to AMS and low O2 sats: #Severe sepsis with septic shock: on 2 pressors, elevated lactate; source likely pneumonia/suspect PE post COVID. #Bilateral pneumonia: likely bacterial pneumonia. COVID markers elevated Charmaine tin 1191. Ddmer >10,000. CRP 18. LDH 381. Recent sputum cx with PMDR Proteus, MRSA. H flu. MRSA PCR positive. Elevated procal however possible due to renal failure #Acute resp failure: intubated. Very high ddimer suspect PE post COVID. #Elevated LFTs: from sepsis #AMMY on CKD: renally adjusted meds, required HD during previous admission Recs: -Continue cefepime and vancomycin renally adjusted. Stop date: 02/25/2020 given improvement. If discharging prior to completion please discharge with levofloxacin 750mg q48h. -Agree with full anticoagulation High risk mortality / guarded prognosis consider palliative care Edel Saenz MD [facility] ([facility] M: [phone] O: [phone] F: [phone] Subjective Date of service: 02/23/20 Principal diagnosis: Septic Shock Interval history: Afebrile, normal white count. On 2L NC. Objective - Exam Narrative Exam: Constitutional: Extubated on nasal cannula Head, Ears, Nose: Normocephalic, atraumatic. External ears, nose normal Oral: Limited Eyes: Conjunctivae/corneas clear. No icterus. No ptosis. Neck: limited Cardiovascular: tachy Respiratory: limited GI: limited Musculoskeletal: limited Skin: limited Hem/Lymphatic: limited Psych: limited Neurological: limited - Constitutional Vitals: Vital Signs Temp Pulse Resp BP Pulse Ox 98.3 F 78 22 85/45 97 02/23/20 11:53 02/23/20 11:53 02/23/20 11:53 02/23/20 11:53 02/23/20 11:53 Temperature -Last 24 Hours Temperature 98.3 F Temperature 99.7 F Temperature 98.6 F Temperature 98.1 F Temperature 98.0 F Temperature 98.1 F Temperature 98.9 F - Labs CBC & Chem 7: 02/23/20 05:36 02/23/20 05:36 Labs: Abnormal lab results 02/22/20 02/22/20 02/23/20 Range/Units 12:24 17:17 05:27 RBC (3.65-5.03) M/mm3 Hgb (11.8-15.2) gm/dl Hct (35.5-45.6) % RDW (13.2-15.2) % Plt Count (140-440) K/mm3 Potassium (3.6-5.0) mmol/L BUN (9-20) mg/dL Creatinine (0.8-1.3) mg/dL Glucose (75-100) mg/dL POC Glucose 122 H 165 H 120 H (70-105) Calcium (8.4-10.2) mg/dL Magnesium (1.7-2.3) mg/dL Total Creatine Kinase (55-170) units/L 02/23/20 02/23/20 02/23/20 Range/Units 05:36 05:36 05:36 RBC 3.15 L (3.65-5.03) M/mm3 Hgb 9.4 L (11.8-15.2) gm/dl Hct 27.6 L (35.5-45.6) % RDW 15.9 H (13.2-15.2) % Plt Count 97 L (140-440) K/mm3 Potassium 3.0 L D (3.6-5.0) mmol/L BUN 53 H (9-20) mg/dL Creatinine 2.3 H (0.8-1.3) mg/dL Glucose 115 H (75-100) mg/dL POC Glucose (70-105) Calcium 7.0 L (8.4-10.2) mg/dL Magnesium 1.20 L (1.7-2.3) mg/dL Total Creatine Kinase 476 H (55-170) units/L 02/23/20 Range/Units 11:57 RBC (3.65-5.03) M/mm3 Hgb (11.8-15.2) gm/dl Hct (35.5-45.6) % RDW (13.2-15.2) % Plt Count (140-440) K/mm3 Potassium (3.6-5.0) mmol/L BUN (9-20) mg/dL Creatinine (0.8-1.3) mg/dL Glucose (75-100) mg/dL POC Glucose 162 H (70-105) Calcium (8.4-10.2) mg/dL Magnesium (1.7-2.3) mg/dL Total Creatine Kinase (55-170) units/L
[2020-02-24] MEDS: INSULIN REGULAR, HUMAN 100 UNIT/ML 3ML VIAL SUB-Q SCH ×4 (05:21→18:48)
[2020-02-24 07:10] LABS: Hematocrit 28.2 % (35.5-45.6); Hemoglobin 9.4 gm/dl (11.8-15.2); Mean Corpuscular HGB Conc 34 % (32-34); Mean Corpuscular Volume 89 fl (84-94); Red Blood Count 3.17 M/mm3 (3.65-5.03); Red Cell Distribution Width 16.1 % (13.2-15.2)
[2020-02-24 07:15] LABS: Platelet Count 96 K/mm3 (140-440)
[2020-02-24 07:48] LABS: Calcium 7.2 mg/dL (8.4-10.2)
[2020-02-24] MEDS: CEFEPIME/NS 2 GM/100 ML 2 GM/100 ML BAG IV SCH (09:28)
[2020-02-24] MEDS: POTASSIUM CHLORIDE 20 MEQ PACKET FEEDTUBE SCH ×2 (09:29→21:20)
[2020-02-24] MEDS: ASPIRIN 81 MG TAB CHEW PO SCH (09:29)
[2020-02-24] MEDS: DOCUSATE SODIUM 100 MG/10 ML ORAL LIQD PO SCH ×2 (09:29→21:20)
--- NOTE | 2020-02-24 10:07 | Progress Note ---
Assessment and Plan Assessment and plan: --Hypokalemia: replenish with KCl per protocol, follow electrolytes. --Hypomagnesemia: Replenish with magnesium sulfate per protocol --Anemia: Hb 6.9 Current Visit: Yes Status: Acute Plan to address problem: Transfused 2 units of PRBC,Hb 9.4 Closely monitor H&H and transfuse additional as needed If no improvement GI evaluation --Elevated D-dimers Current Visit: Yes Status: Acute Plan to address problem: More than 10,000, on heparin drip V/Q scan low probability for PE lower extremity venous Doppler,neg DVT dc heparin. --Septic shock/on pressors/resolved Current Visit: Yes Status: Acute Plan to address problem: Monitor off vasopressors, --Sepsis; right pneumonia/HCAP Current Visit: Yes Status: Acute Plan to address problem: Continue Vanco and cefepime , follow cultures, supportive care ID,Pulm following --Rhabdomyolysis; Current Visit: Yes Status: Acute Plan to address problem: Continue IV fluids, input output monitoring, CK levels trending down CK [id number] We will monitor renal function --COVID-19 test negative x2 during last admission Test negative during this admission 02/18/2020 However patient has very high levels of inflammatory markers ID consulted, trend the markers --Ac. resp failure with hypoxia/ extubated 02/19/2020 Current Visit: No Status: Acute Plan to address problem: on nasal cannula oxygen, saturating well off Levophed --Acute on chronic kidney disease Current Visit: Yes Status: Acute Plan to address problem: Secondary to ATN, gentle hydration Avoid nephrotoxins, monitor renal function Nephrology following -- DVT prophylaxis Current Visit: No Status: Acute Plan to address problem: SCD, Heparin ,renal dose PT OT, DC planning Monitor closely and adjust management as needed Disposition: f/u clinically and dc to SNF when stable. History Interval history: I seen and examined the patient at the bedside Patient's chart and medications reviewed Patient is confused vital signs noted Hospitalist Physical - Constitutional Vitals: Temp Pulse Resp BP Pulse Ox 98.0 F 94 H 20 113/64 100 02/24/20 03:57 02/24/20 08:40 02/24/20 03:57 02/24/20 03:57 02/24/20 03:57 General appearance: Present: mild distress, well-nourished, other (confused) - EENT Eyes: Present: PERRL, EOM intact ENT: other (Dobhoff in place) - Neck Neck: Present: supple, normal ROM - Respiratory Respiratory: bilateral: diminished, rhonchi, negative: rales, wheezing - Cardiovascular Rhythm: regular Heart Sounds: Present: S1 & S2 - Extremities Extremities: no ischemia, No edema - Abdominal General gastrointestinal: soft, non-tender, normal bowel sounds - Integumentary Integumentary: Present: clear, warm - Psychiatric Psychiatric: other (non communicative) - Neurologic Neurologic: moves all extremities HEART Score - HEART Score Troponin: Troponin T 0.573 ng/mL (0.00-0.029) H* D 02/20/20 17:20 Results - Labs CBC & Chem 7: 02/24/20 05:55 02/24/20 05:55 Labs: Laboratory Last Values WBC 4.8 K/mm3 (4.5-11.0) 02/24/20 05:55 RBC 3.17 M/mm3 (3.65-5.03) L 02/24/20 05:55 Hgb 9.4 gm/dl (11.8-15.2) L 02/24/20 05:55 Hct 28.2 % (35.5-45.6) L 02/24/20 05:55 MCV 89 fl (84-94) 02/24/20 05:55 MCH 30 pg (28-32) 02/24/20 05:55 MCHC 34 % (32-34) 02/24/20 05:55 RDW 16.1 % (13.2-15.2) H 02/24/20 05:55 Plt Count 96 K/mm3 (140-440) L 02/24/20 05:55 Lymph % (Auto) 10.5 % (13.4-35.0) L 02/19/20 04:00 [place] % (Auto) 6.8 % (0.0-7.3) 02/19/20 04:00 Eos % (Auto) 0.4 % (0.0-4.3) 02/19/20 04:00 Baso % (Auto) 0.2 % (0.0-1.8) 02/19/20 04:00 Lymph # 1.8 K/mm3 (1.2-5.4) 02/19/20 04:00 [place] # 1.2 K/mm3 (0.0-0.8) H 02/19/20 04:00 Eos # 0.1 K/mm3 (0.0-0.4) 02/19/20 04:00 Baso # 0.0 K/mm3 (0.0-0.1) 02/19/20 04:00 Add Manual Diff Complete 02/17/20 16:28 Total Counted 100 02/17/20 16:28 Seg Neutrophils % 82.1 % (40.0-70.0) H 02/19/20 04:00 Seg Neuts % (Manual) 84.0 % (40.0-70.0) H 02/17/20 16:28 Band Neutrophils % 0 % 02/17/20 16:28 Lymphocytes % (Manual) 8.0 % (13.4-35.0) L 02/17/20 16:28 Reactive Lymphs % (Man) 0 % 02/17/20 16:28 Monocytes % (Manual) 8.0 % (0.0-7.3) H 02/17/20 16:28 Eosinophils % (Manual) 0 % (0.0-4.3) 02/17/20 16:28 Basophils % (Manual) 0 % (0.0-1.8) 02/17/20 16:28 Metamyelocytes % 0 % 02/17/20 16:28 Myelocytes % 0 % 02/17/20 16:28 Promyelocytes % 0 % 02/17/20 16:28 Blast Cells % 0 % 02/17/20 16:28 Nucleated RBC % Not Reportable 02/17/20 16:28 Seg Neutrophils # 14.5 K/mm3 (1.8-7.7) H 02/19/20 04:00 Seg Neutrophils # Man 19.7 K/mm3 (1.8-7.7) H 02/17/20 16:28 Band Neutrophils # 0.0 K/mm3 02/17/20 16:28 Lymphocytes # (Manual) 1.9 K/mm3 (1.2-5.4) 02/17/20 16:28 Abs React Lymphs (Man) 0.0 K/mm3 02/17/20 16:28 Monocytes # (Manual) 1.9 K/mm3 (0.0-0.8) H 02/17/20 16:28 Eosinophils # (Manual) 0.0 K/mm3 (0.0-0.4) 02/17/20 16:28 Basophils # (Manual) 0.0 K/mm3 (0.0-0.1) 02/17/20 16:28 Metamyelocytes # 0.0 K/mm3 02/17/20 16:28 Myelocytes # 0.0 K/mm3 02/17/20 16:28 Promyelocytes # 0.0 K/mm3 02/17/20 16:28 Blast Cells # 0.0 K/mm3 02/17/20 16:28 WBC Morphology Not Reportable 02/17/20 16:28 Hypersegmented Neuts Not Reportable 02/17/20 16:28 Hyposegmented Neuts Not Reportable 02/17/20 16:28 Hypogranular Neuts Not Reportable 02/17/20 16:28 Smudge Cells Not Reportable 02/17/20 16:28 Toxic Granulation Not Reportable 02/17/20 16:28 Toxic Vacuolation Not Reportable 02/17/20 16:28 Dohle Bodies Not Reportable 02/17/20 16:28 Pelger-Huet Anomaly Not Reportable 02/17/20 16:28 Krys Rods Not Reportable 02/17/20 16:28 Platelet Estimate Not Reportable 02/17/20 16:28 Clumped Platelets Not Reportable 02/17/20 16:28 Plt Clumps, EDTA Not Reportable 02/17/20 16:28 Large Platelets Not Reportable 02/17/20 16:28 Giant Platelets Not Reportable 02/17/20 16:28 Platelet Satelliting Not Reportable 02/17/20 16:28 Plt Morphology Comment Not Reportable 02/17/20 16:28 RBC Morphology Normal 02/17/20 16:28 Dimorphic RBCs Not Reportable 02/17/20 16:28 Polychromasia Not Reportable 02/17/20 16:28 Hypochromasia Not Reportable 02/17/20 16:28 Poikilocytosis Not Reportable 02/17/20 16:28 Anisocytosis Not Reportable 02/17/20 16:28 Microcytosis Not Reportable 02/17/20 16:28 Macrocytosis Not Reportable 02/17/20 16:28 Spherocytes Not Reportable 02/17/20 16:28 Pappenheimer Bodies Not Reportable 02/17/20 16:28 Sickle Cells Not Reportable 02/17/20 16:28 Target Cells Not Reportable 02/17/20 16:28 Tear Drop Cells Not Reportable 02/17/20 16:28 Ovalocytes Not Reportable 02/17/20 16:28 Helmet Cells Not Reportable 02/17/20 16:28 [place] Bodies Not Reportable 02/17/20 16:28 [place] Rings Not Reportable 02/17/20 16:28 [place] Cells Not Reportable 02/17/20 16:28 Bite Cells Not Reportable 02/17/20 16:28 Crenated Cell Not Reportable 02/17/20 16:28 Elliptocytes Not Reportable 02/17/20 16:28 Acanthocytes (Spur) Not Reportable 02/17/20 16:28 Rouleaux Not Reportable 02/17/20 16:28 Hemoglobin C Crystals Not Reportable 02/17/20 16:28 Schistocytes Not Reportable 02/17/20 16:28 Malaria parasites Not Reportable 02/17/20 16:28 Keron Bodies Not Reportable 02/17/20 16:28 Hem Pathologist Commnt No 02/17/20 16:28 PT 18.6 Sec. (12.2-14.9) H 02/19/20 03:20 INR 1.53 (0.87-1.13) H 02/19/20 03:20 APTT 26.8 Sec. (24.2-36.6) 02/17/20 16:28 D-Dimer 1327.30 ng/mlDDU (0-234) H 02/20/20 17:20 Heparin Anti-Xa Level < 0.10 U.I./ml (0.3-0.7) L 02/21/20 15:41 ABG pH 7.355 pH Units (7.350-7.450) 02/19/20 05:08 ABG pCO2 27.3 mm Hg 02/19/20 05:08 ABG pO2 168.2 mm Hg (80.0-90.0) H 02/19/20 05:08 ABG HCO3 14.9 mmol/L (20.0-26.0) L 02/19/20 05:08 ABG O2 Saturation 99.0 % (95.0-99.0) 02/19/20 05:08 ABG O2 Content 11.7 (0.0-44) 02/19/20 05:08 ABG Base Excess -9.5 mmol/L (-2.0-3.0) L 02/19/20 05:08 ABG Hemoglobin 8.3 gm/dl (14.0-18.0) L 02/19/20 05:08 ABG Carboxyhemoglobin 1.2 % (0.0-5.0) 02/19/20 05:08 ABG Methemoglobin 0.7 % (0.0-1.5) 02/19/20 05:08 Oxyhemoglobin 97.2 % (95.0-99.0) 02/19/20 05:08 FiO2 40 % 02/19/20 05:08 Sodium 146 mmol/L (137-145) H 02/24/20 05:55 Potassium 4.0 mmol/L (3.6-5.0) D 02/24/20 05:55 Chloride 110.0 mmol/L (98-107) H 02/24/20 05:55 Carbon Dioxide 22 mmol/L (22-30) 02/24/20 05:55 Anion Gap 18 mmol/L 02/24/20 05:55 BUN 69 mg/dL (9-20) H 02/24/20 05:55 Creatinine 2.6 mg/dL (0.8-1.3) H 02/24/20 05:55 Estimated GFR 29 ml/min 02/24/20 05:55 BUN/Creatinine Ratio 27 % 02/24/20 05:55 Glucose 119 mg/dL (75-100) H 02/24/20 05:55 POC Glucose 156 (70-105) H 02/24/20 05:33 Lactic Acid 1.90 mmol/L (0.7-2.0) 02/17/20 22:56 Calcium 7.2 mg/dL (8.4-10.2) L 02/24/20 05:55 Magnesium 1.20 mg/dL (1.7-2.3) L 02/23/20 05:36 Ferritin 1191.0 ng/mL (30.0-300.0) H 02/17/20 16:28 Total Bilirubin 0.50 mg/dL (0.1-1.2) 02/17/20 16:28 AST 65 units/L (5-40) H 02/17/20 16:28 ALT 81 units/L (7-56) H 02/17/20 16:28 Alkaline Phosphatase 101 units/L (35-129) 02/17/20 16:28 Lactate Dehydrogenase 381 units/L (91-180) H 02/17/20 16:28 Total Creatine Kinase 362 units/L (55-170) H 02/24/20 05:55 CK-MB (CK-2) 78.0 ng/mL (0.0-4.0) H 02/18/20 10:10 CK-MB (CK-2) Rel Index 1.3 (0-4) 02/18/20 10:10 Troponin T 0.573 ng/mL (0.00-0.029) H* D 02/20/20 17:20 C-Reactive Protein 18.20 mg/dL (0.00-1.30) H 02/17/20 16:28 NT-Pro-B Natriuret Pep 1980 pg/mL (0-900) H 02/17/20 16:28 Total Protein 5.4 g/dL (6.3-8.2) L 02/17/20 16:28 Albumin 2.3 g/dL (3.9-5) L 02/17/20 16:28 Albumin/Globulin Ratio 0.7 % 02/17/20 16:28 Triglycerides 164 mg/dL (2-149) H 02/18/20 10:10 Cholesterol 133 mg/dL (50-199) 02/18/20 10:10 LDL Cholesterol Direct 71 mg/dL (50-130) 02/18/20 10:10 HDL Cholesterol 38 mg/dL (40-59) L 02/18/20 10:10 Cholesterol/HDL Ratio 3.50 % 02/18/20 10:10 Procalcitonin 6.74 ng/mL (<0.15) 02/17/20 16:28 TSH 3.490 mlU/mL (0.270-4.200) 02/17/20 16:28 Urine Color Yellow (Yellow) 02/17/20 Unknown Urine Turbidity Slightly-cloudy (Clear) 02/17/20 Unknown Urine pH 5.0 (5.0-7.0) 02/17/20 Unknown Ur Specific [place] 1.010 (1.003-1.030) 02/17/20 Unknown Urine Protein 30 mg/dl mg/dL (Negative) 02/17/20 Unknown Urine Glucose (UA) Neg mg/dL (Negative) 02/17/20 Unknown Urine Ketones Neg mg/dL (Negative) 02/17/20 Unknown Urine Blood Mod (Negative) 02/17/20 Unknown Urine Nitrite Neg (Negative) 02/17/20 Unknown Urine Bilirubin Neg (Negative) 02/17/20 Unknown Urine Urobilinogen < 2.0 mg/dL (<2.0) 02/17/20 Unknown Ur Leukocyte Esterase Mod (Negative) 02/17/20 Unknown Urine WBC (Auto) 17.0 /HPF (0.0-6.0) H 02/17/20 Unknown Urine RBC (Auto) 17.0 /HPF (0.0-6.0) 02/17/20 Unknown U Epithel Cells (Auto) 4.0 /HPF (0-13.0) 02/17/20 Unknown Urine Bacteria (Auto) 1+ /HPF (Negative) 02/17/20 Unknown Urine Yeast (Budding) 2+ /HPF 02/17/20 Unknown Urine Eosinophils None seen (None Seen) 02/18/20 17:40 Urine Creatinine 35.2 mg/dL (0.1-20.0) H 02/18/20 17:40 Urine Microalbumin 5.9 mg/dL (0.1-34.0) 02/18/20 17:40 Microalb/Creat Ratio 167.6 ug/mg 02/18/20 17:40 Urine Sodium 104 mmol/L 02/18/20 17:40 Urine Chloride 81.0 mmolL (110-250) L 02/18/20 17:40 Urine Total Protein 38 mg/dL (5-11.8) H 02/18/20 17:40 Nasal Screen MRSA (PCR) Positive (Negative) 02/18/20 17:40 Random Vancomycin 15.6 ug/mL (0-40.0) 02/23/20 05:36 Coronavirus (PCR) Negative (Negative) 02/23/20 09:59 Blood Type B NEGATIVE 09/01/20 10:47 Antibody Screen Negative 02/21/20 10:47 Crossmatch See Detail 02/21/20 10:47 - Diagnostic Impressions Diagnostic Impressions: Echocardiogram 02/19/20 15:05 Transthoracic Echocardiogram Indication: NSTEMI BP: 95/50 HR: 107 Conclusions *Global left ventricular systolic function is at the lower limits of normal. *The estimated ejection fraction is 45-50%. *Abnormal left ventricular diastolic filling is observed, consistent with impaired relaxation. *There is evidence of mild pulmonary hypertension. *There is no pericardial effusion. Findings Left Ventricle: The left ventricular chamber size is normal. Global left ventricular systolic function is at the lower limits of normal. The estimated ejection fraction is 45-50%. Abnormal left ventricular diastolic filling is observed, consistent with impaired relaxation. Left Atrium: The left atrial chamber size is normal. Right Ventricle: The right ventricular cavity size is normal. Right Atrium: The right atrial cavity size is normal. Aortic Valve: Mild aortic leaflet calcification is visualized. There is trace of aortic regurgitation. Mitral Valve: Mild mitral leaflet calcification is visualized. There is no evidence of mitral regurgitation. Tricuspid Valve: The tricuspid valve leaflets are normal. There is mild tricuspid regurgitation. The right ventricular systolic pressure is calculated at 40 mmHg. There is evidence of mild pulmonary hypertension. Pericardium: There is no pericardial effusion. Aorta: The aorta appears normal. Venous: The inferior vena cava appears normal. Measurements Chambers 2D Name Value Normal Range IVSd (2D) 1.09 cm (0.6 - 1.1) LVPWd (2D) 1 cm (0.6 - 1.1) LVIDd (2D) 3.55 cm (3.7 - 5.6) LVIDs (2D) 3 cm (2 - 3.8) LV FS (2D) 15.53 % - Ao root diameter (2D) 3.26 cm (2 - 3.7) Volumes/Mass Name Value Normal Range LA ESV SP 4CH (A/L) 17.3 ml - LA ESV SP 2CH (A/L) 18.3 ml - LA ESV BP (A/L) 19.14 ml - LA ESV BP (A/L) index 9.38 ml/m2 - LA ESV SP 4CH (MOD) 15.02 ml - LA ESV SP 2CH (MOD) 17.03 ml - LA ESV BP (MOD) 17.14 ml - LA ESV BP (MOD) index 8.4 ml/m2 - Diastolic/Systolic Function Name Value Normal Range MV E-wave Vmax 0.56 m/sec - MV deceleration time 197.94 msec - MV A-wave Vmax 1.36 m/sec - MV E:A ratio 0.41 ratio - Aortic Valve Name Value Normal Range AV Vmax 2.3 m/sec - AV VTI 33.77 cm - AV peak gradient 22.91 mmHg - AV mean gradient 12.27 mmHg - LVOT diameter 2.08 cm - LVOT Vmax 0.84 m/sec - LVOT VTI 14.82 cm - LVOT peak gradient 2.82 mmHg - LVOT mean gradient 2 mmHg - SV LVOT 50.44 ml - KALYAN (continuity Vmax) 1.24 cm2 - KALYAN (continuity VTI) 1.49 cm2 - AR PHT 460.84 msec - AR peak gradient 52.84 mmHg - Tricuspid Valve Name Value Normal Range TR Vmax 3.03 m/sec - TR peak gradient 37 mmHg - RAP 3 mmHg - RVSP 40 mmHg - Pulmonic Valve/Qp:Qs Name Value Normal Range PV acceleration time 106.57 msec - Yin/IV: Voiding Method Indwelling Catheter IV Catheter Type [Left Upper INT / Saline Lock arm] IV Catheter Type [Right Triple Lumen Cath Femoral] IV Catheter Type [Right INT / Saline Lock Antecubital] Active Medications - Current Medications Current Medications: Generic Name Dose Route Start Last Admin Trade Name Freq PRN Reason Stop Dose Admin Lipase/Protease/Amylase 1 each 02/21/20 12:12 Pancrecristiane Simon 10,500 Unit FEEDTUBE PRN PRN For Clogged Feeding Tube Aspirin 81 mg 02/18/20 10:00 02/24/20 09:29 Baby Aspirin PO 81 mg DAILY LOS Administration Atorvastatin Calcium 20 mg 02/18/20 22:00 02/23/20 21:37 Lipitor PO 20 mg QHS LOS Administration Dextrose 50 ml 02/18/20 12:55 D50w (25gm) Syringe IV Q30MIN PRN Hypoglycemia Protocol Docusate Sodium 100 mg 02/20/20 12:00 02/24/20 09:29 Colace PO 100 mg BID LOS Administration Hydrophilic Ointment 1 applic 02/17/20 15:12 Vaseline Lip Therapy TP Q2HR PRN Dry Lips Cefepime HCl 2 gm in 100 mls @ 200 mls/hr 02/18/20 09:00 02/24/20 09:28 Cefepime/Ns 2 Gm/100 Ml IV 02/25/20 10:29 200 mls/hr Q24HR LOS Administration Protocol Vasopressin 20 unit/ Sodium 101 mls @ 9.09 mls/hr 02/18/20 10:00 02/21/20 17:10 Chloride IV Infused TITR LOS Titration Protocol 0.03 UNITS/MIN Insulin Human Regular 0 unit 02/18/20 13:00 02/24/20 09:43 Humulin R SUB-Q Not Given Q6HR LOS Protocol Magnesium Hydroxide 30 ml 02/18/20 02:31 Milk Of Magnesia PO Q4H PRN Constipation Multi-Ingred Cream/Lotion/Oil/Oint 1 applic 02/17/20 15:12 02/19/20 04:25 Artificial Tears Ophth Oint OU 1 applic Q4HR PRN Administration Dry Eye(s) Potassium Chloride 40 meq 02/23/20 10:00 02/24/20 09:29 Potassium Chloride FEEDTUBE 40 meq BID LOS Administration Simple Syrup 15 ml 02/21/20 12:12 Simple Syrup FEEDTUBE PRN PRN Hypoglycemia Simple Syrup 30 ml 02/21/20 12:12 Simple Syrup FEEDTUBE PRN PRN Hypoglycemia Sodium Bicarbonate 325 mg 02/21/20 12:12 Sodium Bicarbonate FEEDTUBE PRN PRN For Clogged Feeding Tube Sodium Chloride 10 ml 02/18/20 10:00 02/24/20 09:31 Sodium Chloride Flush Syringe 10 Ml IV 10 ml BID LOS Administration Sodium Chloride 10 ml 02/18/20 02:31 Sodium Chloride Flush Syringe 10 Ml IV PRN PRN LINE FLUSH Nutrition/Malnutrition Assess - Dietary Evaluation Nutrition/Malnutrition Findings: Nutrition Notes Start: 02/18/20 10:34 Freq: Status: Active Protocol: Document 02/23/20 13:11 AT (Rec: 02/23/20 14:27 AT [id number]) Co-Sign 02/23/20 13:11 LM Nutrition Notes Initial or Follow up Reassessment Current Diagnosis CKD(stage I-IV),Diabetes, Sepsis,Hypertension, Hyperlipidemia Other Pertinent Diagnosis UTI, Dementia Current Diet TF Labs/Tests K 3.0 BUN 53 Cr 2.3 Ca 7.0 Mg 1.2 Pertinent Medications Levophed Height 6 ft Weight 87.2 kg [place] Body Weight (kg) 80.90 BMI 26.0 Weight Status Overweight Subjective/Other Information Follow-up on TF and Bello administration. Pt is at goal rate of 45 mL/hr; flush 200 mL q4hr. Nurse reports that pt is tolerating TF well; pt has a soft abdomen and does not have N/V. Nurse has not seen Bello and thus has not administered the supplement. Provided Bello to RN. Pt was extubated. Percent of energy/protein needs met: 98%/100% Burn Absent Trauma Absent GI Symptoms None Current % PO Negligible Minimum of two criteria No physical signs of malnutrition #2 Nutrition Diagnosis Increased nutrient needs ( specify in comment below) Comments: protein Diagnosis Progress(for reassessment Continues documentation) #1 Nutrition Diagnosis Inadequate oral intake Diagnosis Progress(for reassessment Continues documentation) Is patient on ventilator? No Is Patient Ambulatory and/or Out of Bed No REE-([facility]-confined to bed) 1979.156 Calculation Used for Recommendations [facility] Additional Notes PRO needs: 69 - 130 g (0.8 - 1 .5 g/kg) Fluid needs: 1 mL/kcal Nutrition Intervention Change Diet Order: Continue TF Nutrition Support: Nepro at 45ml/hr Flush at 200ml q4hr Kcal 1,944 Protein (gm) 87 Fluid (mL) 785 % RDI: 100 Add Supplement/Snack (indicate name/kcal Bello BID /protein ) Provides kCal: 190 Provides Protein (gm) 5 Goal #1 TF tolerance Goal #2 Meet 80% of energy and protein needs via TF. Goal #3 Pt will receive Bello BID Anticipated Discharge Needs: Unable to determine at this time. Follow-Up By: 02/29/20 Additional Comments Follow up for continued tolerance of TF and Bello administration.
--- NOTE | 2020-02-24 11:10 | Progress Note ---
Assessment and Plan 74 y/o male with known dementia, mumbles very few words at baseline if any, blank stares, admitted with altered mental status, respiratory failure, worsening renal failure and sepsis with shock 1. Pulm-extubated on nasal cannula. Ordered NT suction qshift. Will continue 2. CV- stable now 3. Renal- CK dropping but appears Cr and BUN may have become stagnet. Await renal recs for today. 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 Not for COVID 4. Suggest having conversation with sister about end of life. Second hospital stay in less than 30 days with very similar presentation. Not sure how many more times patient can go through this and survive. Per CM note, looking into LTACH 5. Will see as needed. Subjective Date of service: 02/24/20 Principal diagnosis: Septic Shock Interval history: No acute events. Stable on 2 liters NC. Objective Vital Signs - 12hr 02/24/20 02/24/20 02/24/20 03:57 04:00 08:40 Temperature 98.0 F Pulse Rate 92 H 89 94 H Respiratory 20 Rate Blood Pressure 113/64 O2 Sat by Pulse 100 Oximetry Constitutional: alert ENT: other (orally intubated critically ill on vent) Neck: supple Effort: mildly labored Ascultation: Bilateral: clear, diminished breath sounds Percussion: Bilateral: not dull Cardiovascular: other (sinus tachycardia) Neurologic: unable to assess CBC and BMP: 02/24/20 05:55 02/24/20 05:55 ABG, PT/INR, D-dimer: ABG ABG pH 7.355 pH Units (7.350-7.450) 02/19/20 05:08 ABG pCO2 27.3 mm Hg 02/19/20 05:08 ABG pO2 168.2 mm Hg (80.0-90.0) H 02/19/20 05:08 ABG O2 Saturation 99.0 % (95.0-99.0) 02/19/20 05:08 PT/INR, D-dimer PT 18.6 Sec. (12.2-14.9) H 02/19/20 03:20 INR 1.53 (0.87-1.13) H 02/19/20 03:20 D-Dimer 1327.30 ng/mlDDU (0-234) H 02/20/20 17:20 Abnormal lab findings: Abnormal Labs 02/17/20 02/17/20 02/17/20 16:28 16:28 16:28 WBC 23.5 H RBC 3.07 L Hgb 9.1 L Hct 28.4 L RDW 16.8 H Plt Count Lymph % (Auto) Cloud # Seg Neutrophils % Seg Neuts % (Manual) 84.0 H Lymphocytes % (Manual) 8.0 L Monocytes % (Manual) 8.0 H Seg Neutrophils # Seg Neutrophils # Man 19.7 H Monocytes # (Manual) 1.9 H PT 15.3 H INR 1.19 H D-Dimer Heparin Anti-Xa Level ABG pH ABG pO2 ABG HCO3 ABG O2 Saturation ABG Base Excess ABG Hemoglobin Sodium 136 L Potassium 5.4 H Chloride Carbon Dioxide 15 L BUN 91 H Creatinine 3.7 H D Glucose 120 H POC Glucose Lactic Acid Calcium 7.9 L Magnesium Ferritin AST 65 H ALT 81 H Lactate Dehydrogenase Total Creatine Kinase CK-MB (CK-2) Troponin T C-Reactive Protein NT-Pro-B Natriuret Pep Total Protein 5.4 L Albumin 2.3 L Triglycerides HDL Cholesterol Urine WBC (Auto) Urine Creatinine Urine Chloride Urine Total Protein Crossmatch 02/17/20 02/17/20 02/17/20 16:28 16:28 16:28 WBC RBC Hgb Hct RDW Plt Count Lymph % (Auto) Cloud # Seg Neutrophils % Seg Neuts % (Manual) Lymphocytes % (Manual) Monocytes % (Manual) Seg Neutrophils # Seg Neutrophils # Man Monocytes # (Manual) PT INR D-Dimer > 09442 H Heparin Anti-Xa Level ABG pH ABG pO2 ABG HCO3 ABG O2 Saturation ABG Base Excess ABG Hemoglobin Sodium Potassium Chloride Carbon Dioxide BUN Creatinine Glucose POC Glucose Lactic Acid 2.70 H* Calcium Magnesium Ferritin AST ALT Lactate Dehydrogenase Total Creatine Kinase CK-MB (CK-2) Troponin T 0.748 H* C-Reactive Protein NT-Pro-B Natriuret Pep 1980 H Total Protein Albumin Triglycerides HDL Cholesterol Urine WBC (Auto) Urine Creatinine Urine Chloride Urine Total Protein Crossmatch 02/17/20 02/17/20 02/17/20 16:28 16:28 18:35 WBC RBC Hgb Hct RDW Plt Count Lymph % (Auto) Cloud # Seg Neutrophils % Seg Neuts % (Manual) Lymphocytes % (Manual) Monocytes % (Manual) Seg Neutrophils # Seg Neutrophils # Man Monocytes # (Manual) PT INR D-Dimer Heparin Anti-Xa Level ABG pH 7.303 L ABG pO2 327.3 H ABG HCO3 12.5 L ABG O2 Saturation 99.5 H ABG Base Excess -12.3 L ABG Hemoglobin 11.2 L Sodium Potassium Chloride Carbon Dioxide BUN Creatinine Glucose POC Glucose Lactic Acid Calcium Magnesium Ferritin 1191.0 H AST ALT Lactate Dehydrogenase 381 H Total Creatine Kinase CK-MB (CK-2) Troponin T C-Reactive Protein 18.20 H NT-Pro-B Natriuret Pep Total Protein Albumin Triglycerides HDL Cholesterol Urine WBC (Auto) Urine Creatinine Urine Chloride Urine Total Protein Crossmatch 02/17/20 02/18/20 02/18/20 Unknown 05:20 10:10 WBC RBC Hgb Hct RDW Plt Count Lymph % (Auto) Cloud # Seg Neutrophils % Seg Neuts % (Manual) Lymphocytes % (Manual) Monocytes % (Manual) Seg Neutrophils # Seg Neutrophils # Man Monocytes # (Manual) PT INR D-Dimer Heparin Anti-Xa Level ABG pH 7.217 L ABG pO2 165.7 H ABG HCO3 10.5 L ABG O2 Saturation ABG Base Excess -15.7 L ABG Hemoglobin 10.3 L Sodium Potassium Chloride Carbon Dioxide BUN Creatinine Glucose POC Glucose Lactic Acid Calcium Magnesium Ferritin AST ALT Lactate Dehydrogenase Total Creatine Kinase 5660 H CK-MB (CK-2) 78.0 H Troponin T 1.030 H* D C-Reactive Protein NT-Pro-B Natriuret Pep Total Protein Albumin Triglycerides 164 H HDL Cholesterol 38 L Urine WBC (Auto) 17.0 H Urine Creatinine Urine Chloride Urine Total Protein Crossmatch 02/18/20 02/18/20 02/18/20 12:14 17:32 17:40 WBC RBC Hgb Hct RDW Plt Count Lymph % (Auto) Cloud # Seg Neutrophils % Seg Neuts % (Manual) Lymphocytes % (Manual) Monocytes % (Manual) Seg Neutrophils # Seg Neutrophils # Man Monocytes # (Manual) PT INR D-Dimer Heparin Anti-Xa Level ABG pH ABG pO2 ABG HCO3 ABG O2 Saturation ABG Base Excess ABG Hemoglobin Sodium Potassium Chloride Carbon Dioxide BUN Creatinine Glucose POC Glucose 193 H 191 H Lactic Acid Calcium Magnesium Ferritin AST ALT Lactate Dehydrogenase Total Creatine Kinase CK-MB (CK-2) Troponin T C-Reactive Protein NT-Pro-B Natriuret Pep Total Protein Albumin Triglycerides HDL Cholesterol Urine WBC (Auto) Urine Creatinine 35.2 H Urine Chloride 81.0 L Urine Total Protein 38 H Crossmatch 02/18/20 02/19/20 02/19/20 17:40 00:04 01:50 WBC RBC Hgb Hct RDW Plt Count Lymph % (Auto) Cloud # Seg Neutrophils % Seg Neuts % (Manual) Lymphocytes % (Manual) Monocytes % (Manual) Seg Neutrophils # Seg Neutrophils # Man Monocytes # (Manual) PT INR D-Dimer Heparin Anti-Xa Level 0.18 L ABG pH ABG pO2 ABG HCO3 ABG O2 Saturation ABG Base Excess ABG Hemoglobin Sodium Potassium Chloride 111.4 H Carbon Dioxide 11 L BUN 77 H Creatinine 2.8 H Glucose 168 H POC Glucose 145 H Lactic Acid Calcium 7.2 L Magnesium Ferritin AST ALT Lactate Dehydrogenase Total Creatine Kinase CK-MB (CK-2) Troponin T C-Reactive Protein NT-Pro-B Natriuret Pep Total Protein Albumin Triglycerides HDL Cholesterol Urine WBC (Auto) Urine Creatinine Urine Chloride Urine Total Protein Crossmatch 02/19/20 02/19/20 02/19/20 03:20 04:00 05:08 WBC 17.6 H RBC 2.76 L Hgb 8.1 L Hct 25.0 L RDW 16.6 H Plt Count Lymph % (Auto) 10.5 L Cloud # 1.2 H Seg Neutrophils % 82.1 H Seg Neuts % (Manual) Lymphocytes % (Manual) Monocytes % (Manual) Seg Neutrophils # 14.5 H Seg Neutrophils # Man Monocytes # (Manual) PT 18.6 H INR 1.53 H D-Dimer Heparin Anti-Xa Level ABG pH ABG pO2 168.2 H ABG HCO3 14.9 L ABG O2 Saturation ABG Base Excess -9.5 L ABG Hemoglobin 8.3 L Sodium Potassium Chloride Carbon Dioxide BUN Creatinine Glucose POC Glucose Lactic Acid Calcium Magnesium Ferritin AST ALT Lactate Dehydrogenase Total Creatine Kinase CK-MB (CK-2) Troponin T C-Reactive Protein NT-Pro-B Natriuret Pep Total Protein Albumin Triglycerides HDL Cholesterol Urine WBC (Auto) Urine Creatinine Urine Chloride Urine Total Protein Crossmatch 02/19/20 02/19/20 02/19/20 05:38 05:50 09:10 WBC RBC Hgb Hct RDW Plt Count Lymph % (Auto) Cloud # Seg Neutrophils % Seg Neuts % (Manual) Lymphocytes % (Manual) Monocytes % (Manual) Seg Neutrophils # Seg Neutrophils # Man Monocytes # (Manual) PT INR D-Dimer Heparin Anti-Xa Level ABG pH ABG pO2 ABG HCO3 ABG O2 Saturation ABG Base Excess ABG Hemoglobin Sodium Potassium Chloride 111.6 H 111.9 H Carbon Dioxide 14 L 15 L BUN 69 H 68 H Creatinine 2.6 H 2.5 H Glucose 151 H 154 H POC Glucose 143 H Lactic Acid Calcium 7.4 L 7.2 L Magnesium Ferritin AST ALT Lactate Dehydrogenase Total Creatine Kinase 3552 H CK-MB (CK-2) Troponin T C-Reactive Protein NT-Pro-B Natriuret Pep Total Protein Albumin Triglycerides HDL Cholesterol Urine WBC (Auto) Urine Creatinine Urine Chloride Urine Total Protein Crossmatch 02/19/20 02/19/20 02/19/20 11:41 12:00 17:46 WBC RBC Hgb Hct RDW Plt Count Lymph % (Auto) Cloud # Seg Neutrophils % Seg Neuts % (Manual) Lymphocytes % (Manual) Monocytes % (Manual) Seg Neutrophils # Seg Neutrophils # Man Monocytes # (Manual) PT INR D-Dimer Heparin Anti-Xa Level 0.11 L ABG pH ABG pO2 ABG HCO3 ABG O2 Saturation ABG Base Excess ABG Hemoglobin Sodium Potassium Chloride Carbon Dioxide BUN Creatinine Glucose POC Glucose 160 H 133 H Lactic Acid Calcium Magnesium Ferritin AST ALT Lactate Dehydrogenase Total Creatine Kinase CK-MB (CK-2) Troponin T C-Reactive Protein NT-Pro-B Natriuret Pep Total Protein Albumin Triglycerides HDL Cholesterol Urine WBC (Auto) Urine Creatinine Urine Chloride Urine Total Protein Crossmatch 02/19/20 02/19/20 02/20/20 20:02 23:50 04:44 WBC RBC 2.64 L Hgb 7.9 L Hct 24.1 L RDW 16.3 H Plt Count 137 L Lymph % (Auto) Cloud # Seg Neutrophils % Seg Neuts % (Manual) Lymphocytes % (Manual) Monocytes % (Manual) Seg Neutrophils # Seg Neutrophils # Man Monocytes # (Manual) PT INR D-Dimer Heparin Anti-Xa Level 0.12 L ABG pH ABG pO2 ABG HCO3 ABG O2 Saturation ABG Base Excess ABG Hemoglobin Sodium Potassium Chloride Carbon Dioxide BUN Creatinine Glucose POC Glucose 128 H Lactic Acid Calcium Magnesium Ferritin AST ALT Lactate Dehydrogenase Total Creatine Kinase CK-MB (CK-2) Troponin T C-Reactive Protein NT-Pro-B Natriuret Pep Total Protein Albumin Triglycerides HDL Cholesterol Urine WBC (Auto) Urine Creatinine Urine Chloride Urine Total Protein Crossmatch 02/20/20 02/20/20 02/20/20 04:44 04:44 10:00 WBC RBC Hgb Hct RDW Plt Count Lymph % (Auto) Cloud # Seg Neutrophils % Seg Neuts % (Manual) Lymphocytes % (Manual) Monocytes % (Manual) Seg Neutrophils # Seg Neutrophils # Man Monocytes # (Manual) PT INR D-Dimer Heparin Anti-Xa Level 0.15 L < 0.10 L ABG pH ABG pO2 ABG HCO3 ABG O2 Saturation ABG Base Excess ABG Hemoglobin Sodium Potassium Chloride 110.4 H Carbon Dioxide 19 L BUN 61 H Creatinine 2.4 H Glucose POC Glucose Lactic Acid Calcium 7.3 L Magnesium Ferritin AST ALT Lactate Dehydrogenase Total Creatine Kinase 2238 H CK-MB (CK-2) Troponin T C-Reactive Protein NT-Pro-B Natriuret Pep Total Protein Albumin Triglycerides HDL Cholesterol Urine WBC (Auto) Urine Creatinine Urine Chloride Urine Total Protein Crossmatch 02/20/20 02/20/20 02/20/20 12:58 17:20 17:20 WBC RBC Hgb Hct RDW Plt Count Lymph % (Auto) Cloud # Seg Neutrophils % Seg Neuts % (Manual) Lymphocytes % (Manual) Monocytes % (Manual) Seg Neutrophils # Seg Neutrophils # Man Monocytes # (Manual) PT INR D-Dimer 1327.30 H Heparin Anti-Xa Level 0.17 L ABG pH ABG pO2 ABG HCO3 ABG O2 Saturation ABG Base Excess ABG Hemoglobin Sodium Potassium Chloride Carbon Dioxide BUN Creatinine Glucose POC Glucose 123 H Lactic Acid Calcium Magnesium Ferritin AST ALT Lactate Dehydrogenase Total Creatine Kinase CK-MB (CK-2) Troponin T C-Reactive Protein NT-Pro-B Natriuret Pep Total Protein Albumin Triglycerides HDL Cholesterol Urine WBC (Auto) Urine Creatinine Urine Chloride Urine Total Protein Crossmatch 02/20/20 02/20/20 02/20/20 17:20 18:11 23:52 WBC RBC Hgb Hct RDW Plt Count Lymph % (Auto) Cloud # Seg Neutrophils % Seg Neuts % (Manual) Lymphocytes % (Manual) Monocytes % (Manual) Seg Neutrophils # Seg Neutrophils # Man Monocytes # (Manual) PT INR D-Dimer Heparin Anti-Xa Level ABG pH ABG pO2 ABG HCO3 ABG O2 Saturation ABG Base Excess ABG Hemoglobin Sodium Potassium Chloride Carbon Dioxide BUN Creatinine Glucose POC Glucose 156 H 153 H Lactic Acid Calcium Magnesium Ferritin AST ALT Lactate Dehydrogenase Total Creatine Kinase CK-MB (CK-2) Troponin T 0.573 H* D C-Reactive Protein NT-Pro-B Natriuret Pep Total Protein Albumin Triglycerides HDL Cholesterol Urine WBC (Auto) Urine Creatinine Urine Chloride Urine Total Protein Crossmatch 02/21/20 02/21/20 02/21/20 04:39 04:39 05:12 WBC RBC 2.35 L Hgb 6.9 L Hct 21.1 L RDW 16.2 H Plt Count 126 L Lymph % (Auto) Cloud # Seg Neutrophils % Seg Neuts % (Manual) Lymphocytes % (Manual) Monocytes % (Manual) Seg Neutrophils # Seg Neutrophils # Man Monocytes # (Manual) PT INR D-Dimer Heparin Anti-Xa Level ABG pH ABG pO2 ABG HCO3 ABG O2 Saturation ABG Base Excess ABG Hemoglobin Sodium Potassium Chloride Carbon Dioxide BUN 54 H Creatinine 2.2 H Glucose 120 H POC Glucose 139 H Lactic Acid Calcium 6.8 L Magnesium Ferritin AST ALT Lactate Dehydrogenase Total Creatine Kinase 1488 H CK-MB (CK-2) Troponin T C-Reactive Protein NT-Pro-B Natriuret Pep Total Protein Albumin Triglycerides HDL Cholesterol Urine WBC (Auto) Urine Creatinine Urine Chloride Urine Total Protein Crossmatch 02/21/20 02/21/20 02/21/20 10:47 13:24 15:41 WBC RBC Hgb Hct RDW Plt Count Lymph % (Auto) Cloud # Seg Neutrophils % Seg Neuts % (Manual) Lymphocytes % (Manual) Monocytes % (Manual) Seg Neutrophils # Seg Neutrophils # Man Monocytes # (Manual) PT INR D-Dimer Heparin Anti-Xa Level < 0.10 L ABG pH ABG pO2 ABG HCO3 ABG O2 Saturation ABG Base Excess ABG Hemoglobin Sodium Potassium Chloride Carbon Dioxide BUN Creatinine Glucose POC Glucose 107 H Lactic Acid Calcium Magnesium Ferritin AST ALT Lactate Dehydrogenase Total Creatine Kinase CK-MB (CK-2) Troponin T C-Reactive Protein NT-Pro-B Natriuret Pep Total Protein Albumin Triglycerides HDL Cholesterol Urine WBC (Auto) Urine Creatinine Urine Chloride Urine Total Protein Crossmatch See Detail 02/22/20 02/22/20 02/22/20 05:13 05:13 12:24 WBC RBC 3.18 L Hgb 9.5 L Hct 27.6 L D RDW 15.9 H Plt Count 114 L Lymph % (Auto) Cloud # Seg Neutrophils % Seg Neuts % (Manual) Lymphocytes % (Manual) Monocytes % (Manual) Seg Neutrophils # Seg Neutrophils # Man Monocytes # (Manual) PT INR D-Dimer Heparin Anti-Xa Level ABG pH ABG pO2 ABG HCO3 ABG O2 Saturation ABG Base Excess ABG Hemoglobin Sodium Potassium Chloride Carbon Dioxide BUN 52 H Creatinine 2.3 H Glucose 103 H POC Glucose 122 H Lactic Acid Calcium 6.7 L Magnesium Ferritin AST ALT Lactate Dehydrogenase Total Creatine Kinase 865 H CK-MB (CK-2) Troponin T C-Reactive Protein NT-Pro-B Natriuret Pep Total Protein Albumin Triglycerides HDL Cholesterol Urine WBC (Auto) Urine Creatinine Urine Chloride Urine Total Protein Crossmatch 02/22/20 02/23/20 02/23/20 17:17 05:27 05:36 WBC RBC 3.15 L Hgb 9.4 L Hct 27.6 L RDW 15.9 H Plt Count 97 L Lymph % (Auto) Cloud # Seg Neutrophils % Seg Neuts % (Manual) Lymphocytes % (Manual) Monocytes % (Manual) Seg Neutrophils # Seg Neutrophils # Man Monocytes # (Manual) PT INR D-Dimer Heparin Anti-Xa Level ABG pH ABG pO2 ABG HCO3 ABG O2 Saturation ABG Base Excess ABG Hemoglobin Sodium Potassium Chloride Carbon Dioxide BUN Creatinine Glucose POC Glucose 165 H 120 H Lactic Acid Calcium Magnesium Ferritin AST ALT Lactate Dehydrogenase Total Creatine Kinase CK-MB (CK-2) Troponin T C-Reactive Protein NT-Pro-B Natriuret Pep Total Protein Albumin Triglycerides HDL Cholesterol Urine WBC (Auto) Urine Creatinine Urine Chloride Urine Total Protein Crossmatch 02/23/20 02/23/20 02/23/20 05:36 05:36 11:57 WBC RBC Hgb Hct RDW Plt Count Lymph % (Auto) Cloud # Seg Neutrophils % Seg Neuts % (Manual) Lymphocytes % (Manual) Monocytes % (Manual) Seg Neutrophils # Seg Neutrophils # Man Monocytes # (Manual) PT INR D-Dimer Heparin Anti-Xa Level ABG pH ABG pO2 ABG HCO3 ABG O2 Saturation ABG Base Excess ABG Hemoglobin Sodium Potassium 3.0 L D Chloride Carbon Dioxide BUN 53 H Creatinine 2.3 H Glucose 115 H POC Glucose 162 H Lactic Acid Calcium 7.0 L Magnesium 1.20 L Ferritin AST ALT Lactate Dehydrogenase Total Creatine Kinase 476 H CK-MB (CK-2) Troponin T C-Reactive Protein NT-Pro-B Natriuret Pep Total Protein Albumin Triglycerides HDL Cholesterol Urine WBC (Auto) Urine Creatinine Urine Chloride Urine Total Protein Crossmatch 02/24/20 02/24/20 02/24/20 05:33 05:55 05:55 WBC RBC 3.17 L Hgb 9.4 L Hct 28.2 L RDW 16.1 H Plt Count 96 L Lymph % (Auto) Cloud # Seg Neutrophils % Seg Neuts % (Manual) Lymphocytes % (Manual) Monocytes % (Manual) Seg Neutrophils # Seg Neutrophils # Man Monocytes # (Manual) PT INR D-Dimer Heparin Anti-Xa Level ABG pH ABG pO2 ABG HCO3 ABG O2 Saturation ABG Base Excess ABG Hemoglobin Sodium 146 H Potassium Chloride 110.0 H Carbon Dioxide BUN 69 H Creatinine 2.6 H Glucose 119 H POC Glucose 156 H Lactic Acid Calcium 7.2 L Magnesium Ferritin AST ALT Lactate Dehydrogenase Total Creatine Kinase 362 H CK-MB (CK-2) Troponin T C-Reactive Protein NT-Pro-B Natriuret Pep Total Protein Albumin Triglycerides HDL Cholesterol Urine WBC (Auto) Urine Creatinine Urine Chloride Urine Total Protein Crossmatch
--- NOTE | 2020-02-24 11:45 | Progress Note ---
Assessment and Plan Assessment and plan: --Hypokalemia: replenish with KCl per protocol, follow electrolytes. --Hypomagnesemia: Replenish with magnesium sulfate per protocol --Anemia: Hb 6.9 Transfused 2 units of PRBC,Hb 9.4 Closely monitor H&H and transfuse additional as needed If no improvement GI evaluation --Elevated D-dimers More than 10,000, on heparin drip V/Q scan low probability for PE lower extremity venous Doppler,neg DVT dc heparin. --Sepsis; right pneumonia/HCAP Continue Vanco and cefepime , follow cultures, supportive care ID,Pulm following --Rhabdomyolysis; Continue IV fluids, input output monitoring, CK levels trending down CK [id number] We will monitor renal function --COVID-19 test negative x2 during last admission Test negative during this admission 02/18/2020 However patient has very high levels of inflammatory markers ID consulted, trend the markers --Acute resp failure with hypoxia/extubated 02/19/2020 on nasal cannula oxygen, saturating well off Levophed --Acute on chronic kidney disease Secondary to ATN, gentle hydration Avoid nephrotoxins, monitor renal function Nephrology following -- DVT prophylaxis SCD, Heparin ,renal dose PT OT, DC planning 02/24/2020. Patient extubated yesterday and tolerated nasal cannula. Patient's baseline creatinine appears to be one-point [id number]. Continue IV fluid hydration per nephrology recommendations. CK level was elevated. Therefore, etiology may be from acute kidney injury and rhabdomyolysis. Renal ultrasound revealed chronic medical renal disease and no hydronephrosis. Urine eosinophils negative. Awaiting placement. I discussed the case with case management. History Interval history: No new issues overnight Hospitalist Physical - Constitutional Vitals: Temp Pulse Resp BP Pulse Ox 98.0 F 94 H 20 113/64 100 02/24/20 03:57 02/24/20 08:40 02/24/20 03:57 02/24/20 03:57 02/24/20 03:57 General appearance: Present: mild distress, well-nourished, other (confused) - EENT Eyes: Present: PERRL, EOM intact ENT: hearing intact, clear oral mucosa, dentition normal - Neck Neck: Present: supple, normal ROM - Respiratory Respiratory effort: normal Respiratory: bilateral: CTA - Cardiovascular Rhythm: regular Heart Sounds: Present: S1 & S2. Absent: gallop, rub - Extremities Extremities: no ischemia, No edema, Full ROM - Abdominal General gastrointestinal: soft, non-tender, non-distended, normal bowel sounds - Integumentary Integumentary: Present: clear, warm, dry - Neurologic Neurologic: CNII-XII intact, moves all extremities HEART Score - HEART Score Troponin: Troponin T 0.573 ng/mL (0.00-0.029) H* D 02/20/20 17:20 Results - Labs CBC & Chem 7: 02/24/20 05:55 02/24/20 05:55 Labs: Laboratory Last Values WBC 4.8 K/mm3 (4.5-11.0) 02/24/20 05:55 RBC 3.17 M/mm3 (3.65-5.03) L 02/24/20 05:55 Hgb 9.4 gm/dl (11.8-15.2) L 02/24/20 05:55 Hct 28.2 % (35.5-45.6) L 02/24/20 05:55 MCV 89 fl (84-94) 02/24/20 05:55 MCH 30 pg (28-32) 02/24/20 05:55 MCHC 34 % (32-34) 02/24/20 05:55 RDW 16.1 % (13.2-15.2) H 02/24/20 05:55 Plt Count 96 K/mm3 (140-440) L 02/24/20 05:55 Lymph % (Auto) 10.5 % (13.4-35.0) L 02/19/20 04:00 [place] % (Auto) 6.8 % (0.0-7.3) 02/19/20 04:00 Eos % (Auto) 0.4 % (0.0-4.3) 02/19/20 04:00 Baso % (Auto) 0.2 % (0.0-1.8) 02/19/20 04:00 Lymph # 1.8 K/mm3 (1.2-5.4) 02/19/20 04:00 [place] # 1.2 K/mm3 (0.0-0.8) H 02/19/20 04:00 Eos # 0.1 K/mm3 (0.0-0.4) 02/19/20 04:00 Baso # 0.0 K/mm3 (0.0-0.1) 02/19/20 04:00 Add Manual Diff Complete 02/17/20 16:28 Total Counted 100 02/17/20 16:28 Seg Neutrophils % 82.1 % (40.0-70.0) H 02/19/20 04:00 Seg Neuts % (Manual) 84.0 % (40.0-70.0) H 02/17/20 16:28 Band Neutrophils % 0 % 02/17/20 16:28 Lymphocytes % (Manual) 8.0 % (13.4-35.0) L 02/17/20 16:28 Reactive Lymphs % (Man) 0 % 02/17/20 16:28 Monocytes % (Manual) 8.0 % (0.0-7.3) H 02/17/20 16:28 Eosinophils % (Manual) 0 % (0.0-4.3) 02/17/20 16:28 Basophils % (Manual) 0 % (0.0-1.8) 02/17/20 16:28 Metamyelocytes % 0 % 02/17/20 16:28 Myelocytes % 0 % 02/17/20 16:28 Promyelocytes % 0 % 02/17/20 16:28 Blast Cells % 0 % 02/17/20 16:28 Nucleated RBC % Not Reportable 02/17/20 16:28 Seg Neutrophils # 14.5 K/mm3 (1.8-7.7) H 02/19/20 04:00 Seg Neutrophils # Man 19.7 K/mm3 (1.8-7.7) H 02/17/20 16:28 Band Neutrophils # 0.0 K/mm3 02/17/20 16:28 Lymphocytes # (Manual) 1.9 K/mm3 (1.2-5.4) 02/17/20 16:28 Abs React Lymphs (Man) 0.0 K/mm3 02/17/20 16:28 Monocytes # (Manual) 1.9 K/mm3 (0.0-0.8) H 02/17/20 16:28 Eosinophils # (Manual) 0.0 K/mm3 (0.0-0.4) 02/17/20 16:28 Basophils # (Manual) 0.0 K/mm3 (0.0-0.1) 02/17/20 16:28 Metamyelocytes # 0.0 K/mm3 02/17/20 16:28 Myelocytes # 0.0 K/mm3 02/17/20 16:28 Promyelocytes # 0.0 K/mm3 02/17/20 16:28 Blast Cells # 0.0 K/mm3 02/17/20 16:28 WBC Morphology Not Reportable 02/17/20 16:28 Hypersegmented Neuts Not Reportable 02/17/20 16:28 Hyposegmented Neuts Not Reportable 02/17/20 16:28 Hypogranular Neuts Not Reportable 02/17/20 16:28 Smudge Cells Not Reportable 02/17/20 16:28 Toxic Granulation Not Reportable 02/17/20 16:28 Toxic Vacuolation Not Reportable 02/17/20 16:28 Dohle Bodies Not Reportable 02/17/20 16:28 Pelger-Huet Anomaly Not Reportable 02/17/20 16:28 Krys Rods Not Reportable 02/17/20 16:28 Platelet Estimate Not Reportable 02/17/20 16:28 Clumped Platelets Not Reportable 02/17/20 16:28 Plt Clumps, EDTA Not Reportable 02/17/20 16:28 Large Platelets Not Reportable 02/17/20 16:28 Giant Platelets Not Reportable 02/17/20 16:28 Platelet Satelliting Not Reportable 02/17/20 16:28 Plt Morphology Comment Not Reportable 02/17/20 16:28 RBC Morphology Normal 02/17/20 16:28 Dimorphic RBCs Not Reportable 02/17/20 16:28 Polychromasia Not Reportable 02/17/20 16:28 Hypochromasia Not Reportable 02/17/20 16:28 Poikilocytosis Not Reportable 02/17/20 16:28 Anisocytosis Not Reportable 02/17/20 16:28 Microcytosis Not Reportable 02/17/20 16:28 Macrocytosis Not Reportable 02/17/20 16:28 Spherocytes Not Reportable 02/17/20 16:28 Pappenheimer Bodies Not Reportable 02/17/20 16:28 Sickle Cells Not Reportable 02/17/20 16:28 Target Cells Not Reportable 02/17/20 16:28 Tear Drop Cells Not Reportable 02/17/20 16:28 Ovalocytes Not Reportable 02/17/20 16:28 Helmet Cells Not Reportable 02/17/20 16:28 Lazo-Muddy Bodies Not Reportable 02/17/20 16:28 Graham Rings Not Reportable 02/17/20 16:28 [place] Cells Not Reportable 02/17/20 16:28 Bite Cells Not Reportable 02/17/20 16:28 Crenated Cell Not Reportable 02/17/20 16:28 Elliptocytes Not Reportable 02/17/20 16:28 Acanthocytes (Spur) Not Reportable 02/17/20 16:28 Rouleaux Not Reportable 02/17/20 16:28 Hemoglobin C Crystals Not Reportable 02/17/20 16:28 Schistocytes Not Reportable 02/17/20 16:28 Malaria parasites Not Reportable 02/17/20 16:28 Keron Bodies Not Reportable 02/17/20 16:28 Hem Pathologist Commnt No 02/17/20 16:28 PT 18.6 Sec. (12.2-14.9) H 02/19/20 03:20 INR 1.53 (0.87-1.13) H 02/19/20 03:20 APTT 26.8 Sec. (24.2-36.6) 02/17/20 16:28 D-Dimer 1327.30 ng/mlDDU (0-234) H 02/20/20 17:20 Heparin Anti-Xa Level < 0.10 U.I./ml (0.3-0.7) L 02/21/20 15:41 ABG pH 7.355 pH Units (7.350-7.450) 02/19/20 05:08 ABG pCO2 27.3 mm Hg 02/19/20 05:08 ABG pO2 168.2 mm Hg (80.0-90.0) H 02/19/20 05:08 ABG HCO3 14.9 mmol/L (20.0-26.0) L 02/19/20 05:08 ABG O2 Saturation 99.0 % (95.0-99.0) 02/19/20 05:08 ABG O2 Content 11.7 (0.0-44) 02/19/20 05:08 ABG Base Excess -9.5 mmol/L (-2.0-3.0) L 02/19/20 05:08 ABG Hemoglobin 8.3 gm/dl (14.0-18.0) L 02/19/20 05:08 ABG Carboxyhemoglobin 1.2 % (0.0-5.0) 02/19/20 05:08 ABG Methemoglobin 0.7 % (0.0-1.5) 02/19/20 05:08 Oxyhemoglobin 97.2 % (95.0-99.0) 02/19/20 05:08 FiO2 40 % 02/19/20 05:08 Sodium 146 mmol/L (137-145) H 02/24/20 05:55 Potassium 4.0 mmol/L (3.6-5.0) D 02/24/20 05:55 Chloride 110.0 mmol/L (98-107) H 02/24/20 05:55 Carbon Dioxide 22 mmol/L (22-30) 02/24/20 05:55 Anion Gap 18 mmol/L 02/24/20 05:55 BUN 69 mg/dL (9-20) H 02/24/20 05:55 Creatinine 2.6 mg/dL (0.8-1.3) H 02/24/20 05:55 Estimated GFR 29 ml/min 02/24/20 05:55 BUN/Creatinine Ratio 27 % 02/24/20 05:55 Glucose 119 mg/dL (75-100) H 02/24/20 05:55 POC Glucose 156 (70-105) H 02/24/20 05:33 Lactic Acid 1.90 mmol/L (0.7-2.0) 02/17/20 22:56 Calcium 7.2 mg/dL (8.4-10.2) L 02/24/20 05:55 Magnesium 1.20 mg/dL (1.7-2.3) L 02/23/20 05:36 Ferritin 1191.0 ng/mL (30.0-300.0) H 02/17/20 16:28 Total Bilirubin 0.50 mg/dL (0.1-1.2) 02/17/20 16:28 AST 65 units/L (5-40) H 02/17/20 16:28 ALT 81 units/L (7-56) H 02/17/20 16:28 Alkaline Phosphatase 101 units/L (35-129) 02/17/20 16:28 Lactate Dehydrogenase 381 units/L (91-180) H 02/17/20 16:28 Total Creatine Kinase 362 units/L (55-170) H 02/24/20 05:55 CK-MB (CK-2) 78.0 ng/mL (0.0-4.0) H 02/18/20 10:10 CK-MB (CK-2) Rel Index 1.3 (0-4) 02/18/20 10:10 Troponin T 0.573 ng/mL (0.00-0.029) H* D 02/20/20 17:20 C-Reactive Protein 18.20 mg/dL (0.00-1.30) H 02/17/20 16:28 NT-Pro-B Natriuret Pep 1980 pg/mL (0-900) H 02/17/20 16:28 Total Protein 5.4 g/dL (6.3-8.2) L 02/17/20 16:28 Albumin 2.3 g/dL (3.9-5) L 02/17/20 16:28 Albumin/Globulin Ratio 0.7 % 02/17/20 16:28 Triglycerides 164 mg/dL (2-149) H 02/18/20 10:10 Cholesterol 133 mg/dL (50-199) 02/18/20 10:10 LDL Cholesterol Direct 71 mg/dL (50-130) 02/18/20 10:10 HDL Cholesterol 38 mg/dL (40-59) L 02/18/20 10:10 Cholesterol/HDL Ratio 3.50 % 02/18/20 10:10 Procalcitonin 6.74 ng/mL (<0.15) 02/17/20 16:28 TSH 3.490 mlU/mL (0.270-4.200) 02/17/20 16:28 Urine Color Yellow (Yellow) 02/17/20 Unknown Urine Turbidity Slightly-cloudy (Clear) 02/17/20 Unknown Urine pH 5.0 (5.0-7.0) 02/17/20 Unknown Ur Specific [place] 1.010 (1.003-1.030) 02/17/20 Unknown Urine Protein 30 mg/dl mg/dL (Negative) 02/17/20 Unknown Urine Glucose (UA) Neg mg/dL (Negative) 02/17/20 Unknown Urine Ketones Neg mg/dL (Negative) 02/17/20 Unknown Urine Blood Mod (Negative) 02/17/20 Unknown Urine Nitrite Neg (Negative) 02/17/20 Unknown Urine Bilirubin Neg (Negative) 02/17/20 Unknown Urine Urobilinogen < 2.0 mg/dL (<2.0) 02/17/20 Unknown Ur Leukocyte Esterase Mod (Negative) 02/17/20 Unknown Urine WBC (Auto) 17.0 /HPF (0.0-6.0) H 02/17/20 Unknown Urine RBC (Auto) 17.0 /HPF (0.0-6.0) 02/17/20 Unknown U Epithel Cells (Auto) 4.0 /HPF (0-13.0) 02/17/20 Unknown Urine Bacteria (Auto) 1+ /HPF (Negative) 02/17/20 Unknown Urine Yeast (Budding) 2+ /HPF 02/17/20 Unknown Urine Eosinophils None seen (None Seen) 02/18/20 17:40 Urine Creatinine 35.2 mg/dL (0.1-20.0) H 02/18/20 17:40 Urine Microalbumin 5.9 mg/dL (0.1-34.0) 02/18/20 17:40 Microalb/Creat Ratio 167.6 ug/mg 02/18/20 17:40 Urine Sodium 104 mmol/L 02/18/20 17:40 Urine Chloride 81.0 mmolL (110-250) L 02/18/20 17:40 Urine Total Protein 38 mg/dL (5-11.8) H 02/18/20 17:40 Nasal Screen MRSA (PCR) Positive (Negative) 02/18/20 17:40 Random Vancomycin 15.6 ug/mL (0-40.0) 02/23/20 05:36 Coronavirus (PCR) Negative (Negative) 02/23/20 09:59 Blood Type B NEGATIVE 02/21/20 10:47 Antibody Screen Negative 02/21/20 10:47 Crossmatch See Detail 02/21/20 10:47 - Diagnostic Impressions Diagnostic Impressions: Echocardiogram 02/19/20 15:05 Transthoracic Echocardiogram Indication: NSTEMI BP: 95/50 HR: 107 Conclusions *Global left ventricular systolic function is at the lower limits of normal. *The estimated ejection fraction is 45-50%. *Abnormal left ventricular diastolic filling is observed, consistent with impaired relaxation. *There is evidence of mild pulmonary hypertension. *There is no pericardial effusion. Findings Left Ventricle: The left ventricular chamber size is normal. Global left ventricular systolic function is at the lower limits of normal. The estimated ejection fraction is 45-50%. Abnormal left ventricular diastolic filling is observed, consistent with impaired relaxation. Left Atrium: The left atrial chamber size is normal. Right Ventricle: The right ventricular cavity size is normal. Right Atrium: The right atrial cavity size is normal. Aortic Valve: Mild aortic leaflet calcification is visualized. There is trace of aortic regurgitation. Mitral Valve: Mild mitral leaflet calcification is visualized. There is no evidence of mitral regurgitation. Tricuspid Valve: The tricuspid valve leaflets are normal. There is mild tricuspid regurgitation. The right ventricular systolic pressure is calculated at 40 mmHg. There is evidence of mild pulmonary hypertension. Pericardium: There is no pericardial effusion. Aorta: The aorta appears normal. Venous: The inferior vena cava appears normal. Measurements Chambers 2D Name Value Normal Range IVSd (2D) 1.09 cm (0.6 - 1.1) LVPWd (2D) 1 cm (0.6 - 1.1) LVIDd (2D) 3.55 cm (3.7 - 5.6) LVIDs (2D) 3 cm (2 - 3.8) LV FS (2D) 15.53 % - Ao root diameter (2D) 3.26 cm (2 - 3.7) Volumes/Mass Name Value Normal Range LA ESV SP 4CH (A/L) 17.3 ml - LA ESV SP 2CH (A/L) 18.3 ml - LA ESV BP (A/L) 19.14 ml - LA ESV BP (A/L) index 9.38 ml/m2 - LA ESV SP 4CH (MOD) 15.02 ml - LA ESV SP 2CH (MOD) 17.03 ml - LA ESV BP (MOD) 17.14 ml - LA ESV BP (MOD) index 8.4 ml/m2 - Diastolic/Systolic Function Name Value Normal Range MV E-wave Vmax 0.56 m/sec - MV deceleration time 197.94 msec - MV A-wave Vmax 1.36 m/sec - MV E:A ratio 0.41 ratio - Aortic Valve Name Value Normal Range AV Vmax 2.3 m/sec - AV VTI 33.77 cm - AV peak gradient 22.91 mmHg - AV mean gradient 12.27 mmHg - LVOT diameter 2.08 cm - LVOT Vmax 0.84 m/sec - LVOT VTI 14.82 cm - LVOT peak gradient 2.82 mmHg - LVOT mean gradient 2 mmHg - SV LVOT 50.44 ml - KALYAN (continuity Vmax) 1.24 cm2 - KALYAN (continuity VTI) 1.49 cm2 - AR PHT 460.84 msec - AR peak gradient 52.84 mmHg - Tricuspid Valve Name Value Normal Range TR Vmax 3.03 m/sec - TR peak gradient 37 mmHg - RAP 3 mmHg - RVSP 40 mmHg - Pulmonic Valve/Qp:Qs Name Value Normal Range PV acceleration time 106.57 msec - Yin/IV: Voiding Method Indwelling Catheter IV Catheter Type [Left Upper INT / Saline Lock arm] IV Catheter Type [Right Triple Lumen Cath Femoral] IV Catheter Type [Right INT / Saline Lock Antecubital] Active Medications - Current Medications Current Medications: Generic Name Dose Route Start Last Admin Trade Name Freq PRN Reason Stop Dose Admin Lipase/Protease/Amylase 1 each 02/21/20 12:12 Pancreaze 10,500 Unit FEEDTUBE PRN PRN For Clogged Feeding Tube Aspirin 81 mg 02/18/20 10:00 02/24/20 09:29 Baby Aspirin PO 81 mg DAILY LOS Administration Atorvastatin Calcium 20 mg 02/18/20 22:00 02/23/20 21:37 Lipitor PO 20 mg QHS LOS Administration Dextrose 50 ml 02/18/20 12:55 D50w (25gm) Syringe IV Q30MIN PRN Hypoglycemia Protocol Docusate Sodium 100 mg 02/20/20 12:00 02/24/20 09:29 Colace PO 100 mg BID LOS Administration Heparin Sodium (Porcine) 5,000 unit 02/24/20 22:00 Heparin SUB-Q Q12HR LOS Hydrophilic Ointment 1 applic 02/17/20 15:12 Vaseline Lip Therapy TP Q2HR PRN Dry Lips Cefepime HCl 2 gm in 100 mls @ 200 mls/hr 02/18/20 09:00 02/24/20 09:28 Cefepime/Ns 2 Gm/100 Ml IV 02/25/20 10:29 200 mls/hr Q24HR LOS Administration Protocol Vasopressin 20 unit/ Sodium 101 mls @ 9.09 mls/hr 02/18/20 10:00 02/21/20 17:10 Chloride IV Infused TITR LOS Titration Protocol 0.03 UNITS/MIN Insulin Human Regular 0 unit 02/18/20 13:00 02/24/20 09:43 Humulin R SUB-Q Not Given Q6HR LOS Protocol Magnesium Hydroxide 30 ml 02/18/20 02:31 Milk Of Magnesia PO Q4H PRN Constipation Multi-Ingred Cream/Lotion/Oil/Oint 1 applic 02/17/20 15:12 02/19/20 04:25 Artificial Tears Ophth Oint OU 1 applic Q4HR PRN Administration Dry Eye(s) Potassium Chloride 40 meq 02/23/20 10:00 02/24/20 09:29 Potassium Chloride FEEDTUBE 40 meq BID LOS Administration Simple Syrup 15 ml 02/21/20 12:12 Simple Syrup FEEDTUBE PRN PRN Hypoglycemia Simple Syrup 30 ml 02/21/20 12:12 Simple Syrup FEEDTUBE PRN PRN Hypoglycemia Sodium Bicarbonate 325 mg 02/21/20 12:12 Sodium Bicarbonate FEEDTUBE PRN PRN For Clogged Feeding Tube Sodium Chloride 10 ml 02/18/20 10:00 02/24/20 09:31 Sodium Chloride Flush Syringe 10 Ml IV 10 ml BID LOS Administration Sodium Chloride 10 ml 02/18/20 02:31 Sodium Chloride Flush Syringe 10 Ml IV PRN PRN LINE FLUSH Nutrition/Malnutrition Assess - Dietary Evaluation Nutrition/Malnutrition Findings: Nutrition Notes Start: 02/18/20 10:34 Freq: Status: Active Protocol: Document 02/23/20 13:11 AT (Rec: 02/23/20 14:27 AT [facility] [id number]) Co-Sign 02/23/20 13:11 LM Nutrition Notes Initial or Follow up Reassessment Current Diagnosis CKD(stage I-IV),Diabetes, Sepsis,Hypertension, Hyperlipidemia Other Pertinent Diagnosis UTI, Dementia Current Diet TF Labs/Tests K 3.0 BUN 53 Cr 2.3 Ca 7.0 Mg 1.2 Pertinent Medications Levophed Height 6 ft Weight 87.2 kg [place] Body Weight (kg) 80.90 BMI 26.0 Weight Status Overweight Subjective/Other Information Follow-up on TF and Bello administration. Pt is at goal rate of 45 mL/hr; flush 200 mL q4hr. Nurse reports that pt is tolerating TF well; pt has a soft abdomen and does not have N/V. Nurse has not seen Bello and thus has not administered the supplement. Provided Bello to RN. Pt was extubated. Percent of energy/protein needs met: 98%/100% Burn Absent Trauma Absent GI Symptoms None Current % PO Negligible Minimum of two criteria No physical signs of malnutrition #2 Nutrition Diagnosis Increased nutrient needs ( specify in comment below) Comments: protein Diagnosis Progress(for reassessment Continues documentation) #1 Nutrition Diagnosis Inadequate oral intake Diagnosis Progress(for reassessment Continues documentation) Is patient on ventilator? No Is Patient Ambulatory and/or Out of Bed No REE-([place]-confined to bed) 1979.156 Calculation Used for Recommendations [facility] Additional Notes PRO needs: 69 - 130 g (0.8 - 1 .5 g/kg) Fluid needs: 1 mL/kcal Nutrition Intervention Change Diet Order: Continue TF Nutrition Support: [place]ro at 45ml/hr Flush at 200ml q4hr Kcal 1,944 Protein (gm) 87 Fluid (mL) 785 % RDI: 100 Add Supplement/Snack (indicate name/kcal Bello BID /protein ) Provides kCal: 190 Provides Protein (gm) 5 Goal #1 TF tolerance Goal #2 Meet 80% of energy and protein needs via TF. Goal #3 Pt will receive Bello BID Anticipated Discharge Needs: Unable to determine at this time. Follow-Up By: 02/29/20 Additional Comments Follow up for continued tolerance of TF and Bello administration.
--- NOTE | 2020-02-24 12:00 | Progress Note ---
Assessment and Plan Suspect NSTEMI type II in the setting of septic shock/acute resp fail/AMMY. Severe anemia noted and thrombocytopenia noted, heparin gtt d/c'd. DDimer significantly elevated - V/Q scan low prob for PE. Currently weaned off vasopressors. Prognosis remains guarded. Cont present cardiac management. Will follow on as needed basis. Pt seen in conjunction with Dr. Kat Garay who agrees with the assessment and plan of care. - Patient Problems (1) Acute respiratory failure Current Visit: Yes Status: Acute (2) Bilateral pneumonia Current Visit: Yes Status: Acute (3) Septic shock Current Visit: Yes Status: Acute (4) Acute kidney injury superimposed on CKD Current Visit: Yes Status: Acute (5) Anemia Current Visit: Yes Status: Acute (6) Elevated d-dimer Current Visit: Yes Status: Acute (7) NSTEMI (non-ST elevated myocardial infarction) Current Visit: Yes Status: Acute (8) HTN (hypertension) Current Visit: No Status: Chronic Qualifiers: Hypertension type: essential hypertension Qualified Code(s): I10 - Essential (primary) hypertension (9) HLD (hyperlipidemia) Current Visit: Yes Status: Chronic Qualifiers: Hyperlipidemia type: mixed hyperlipidemia Qualified Code(s): E78.2 - Mixed hyperlipidemia (10) DM2 (diabetes mellitus, type 2) Current Visit: Yes Status: Chronic (11) PVD (peripheral vascular disease) Current Visit: Yes Status: Chronic (12) H/O: CVA (cerebrovascular accident) Current Visit: Yes Status: Chronic (13) Thrombocytopenia Current Visit: Yes Status: Acute Subjective Date of service: 02/24/20 Principal diagnosis: Septic Shock Interval history: pt resting in bed. in SR on tele HR 90s. Objective Last Vital Signs Temp 98.0 F 02/24/20 03:57 Pulse 93 H 02/24/20 11:47 Resp 20 02/24/20 03:57 BP 113/64 02/24/20 03:57 Pulse Ox 100 02/24/20 03:57 - Physical Examination General: No Apparent Distress HEENT: Positive: Normocephaly Neck: Negative: JVD/HJR Cardiac: Positive: Reg Rate and Rhythm, S1/S2 Lungs: Positive: Decreased Breath Sounds, Oxygen Neuro: Positive: Other (intubated/sedated) Abdomen: Positive: Soft, Active Bowel Sounds Skin: Negative: Rash Musculoskeletal: No Fluid Collection Extremities: Present: upper extr. pulses, lower extr. pulses. Absent: edema - Labs and Meds CBC 02/24/20 Range/Units 05:55 WBC 4.8 (4.5-11.0) K/mm3 RBC 3.17 L (3.65-5.03) M/mm3 Hgb 9.4 L (11.8-15.2) gm/dl Hct 28.2 L (35.5-45.6) % Plt Count 96 L (140-440) K/mm3 Comprehensive Metabolic Panel 02/24/20 Range/Units 05:55 Sodium 146 H (137-145) mmol/L Potassium 4.0 D (3.6-5.0) mmol/L Chloride 110.0 H (98-107) mmol/L Carbon Dioxide 22 (22-30) mmol/L BUN 69 H (9-20) mg/dL Creatinine 2.6 H (0.8-1.3) mg/dL Glucose 119 H (75-100) mg/dL Calcium 7.2 L (8.4-10.2) mg/dL - Imaging and Cardiology EKG: report reviewed, image reviewed Echo: report reviewed (EF 45-50%, impaired relaxation, mild pulm HTN RVSP 40mmHg. ) - EKG Sinus rhythms and dysrhythmias: sinus rhythm
--- NOTE | 2020-02-24 14:20 | Progress Note ---
Assessment and Plan Acute hypoxic respiratory failure Septic Shock 2/2 PNA Bilateral PNA Acute Kidney Injury 2/2 ischemic ATN from septic shock, Rhabdo, on underlying CKD, no obstruction Elevated D-Dimers Plan: - Renal function reviewed, SCr level was 2.6 today, yesterday's SCr level was 2.3 - Review of labs in 2014 in [facility] did show SCr level between 1.6-1.8, most recent SCr level in [facility] prior to this admission was 2.2 on 02/14/20 - S/p Bicarb drip - CK level was elevated so could have AMMY from contribution from Rhabdo as well - Off pressors - No hydronephrosis noted on Renal US - Continue free water flushes 200 ml q 4 hrs via NGT for hypernatremia - CK level 362 today, trending down - Urine eosinophils negative, calculated protein to cr ratio 1 g, monitor - ID on board, f/u recs - Renally dose meds - Yin Catheter: Yes - Renal plan d/w Dr Sosa Subjective Principal diagnosis: Septic Shock Interval history: Pt seen in bed, pt doesn't follow commands. Nurse states pt is getting free water flushes 200 ml q 4 hrs for now. Objective - Vital Signs Vital signs: Vital Signs - 12hr 02/24/20 02/24/20 02/24/20 03:57 04:00 08:40 Temperature 98.0 F Pulse Rate 92 H 89 94 H Pulse Rate [ From Monitor] Respiratory 20 Rate Blood Pressure 113/64 O2 Sat by Pulse 100 Oximetry 02/24/20 02/24/20 11:47 11:53 Temperature Pulse Rate 93 H Pulse Rate [ 93 H From Monitor] Respiratory 38 H Rate Blood Pressure O2 Sat by Pulse Oximetry - General Appearance General appearance: other EENT: ATNC Neck: no JVD Respiratory: Present: Decreased Breath Sounds Cardiology: regular, S1S2 Gastrointestinal: normoactive bowel sounds (nasogastric tube in place) Neurologic: other (pt doesn't follow commands) Musculoskeletal: other (trace edema to BLE) - Lab 02/24/20 05:55 02/24/20 05:55 Most recent lab results ABG pH 7.355 pH Units (7.350-7.450) 02/19/20 05:08 ABG pCO2 27.3 mm Hg 02/19/20 05:08 ABG pO2 168.2 mm Hg (80.0-90.0) H 02/19/20 05:08 ABG HCO3 14.9 mmol/L (20.0-26.0) L 02/19/20 05:08 ABG O2 Saturation 99.0 % (95.0-99.0) 02/19/20 05:08 Calcium 7.2 mg/dL (8.4-10.2) L 02/24/20 05:55 Magnesium 1.20 mg/dL (1.7-2.3) L 02/23/20 05:36 Urine Creatinine 35.2 mg/dL (0.1-20.0) H 02/18/20 17:40 Urine Sodium 104 mmol/L 02/18/20 17:40 Urine Total Protein 38 mg/dL (5-11.8) H 02/18/20 17:40 Medications & Allergies - Medications Allergies/Adverse Reactions: Allergies No Known Allergies Allergy (Unverified 05/01/15 23:41) Home Medications: Home Medications Medication Instructions Recorded Confirmed Last Taken Type Acetaminophen [Acetaminophen TAB] 650 mg PO Q8H PRN 05/02/15 02/18/20 Unknown History Albuterol Sulfate [Albuterol 0.63% 0.63 mg IH Q6H PRN 05/02/15 02/18/20 Unknown History NEBS] Aspirin [Aspirin BABY CHEW TAB] 81 mg PO DAILY 05/02/15 02/18/20 05/01/15 History AtorvaSTATin [Lipitor] 20 mg PO QHS 05/02/15 02/18/20 05/01/15 History Docusate Sodium [Colace CAP] 100 mg PO BID 05/02/15 02/18/20 05/02/15 History Insulin Lispro [HumaLOG VIAL] See Protocol SUB-Q ACHS 05/02/15 02/18/20 05/01/15 History amLODIPine 5 mg PO DAILY 05/02/15 02/18/20 05/01/15 History Active Medications: Generic Name Dose Route Start Last Admin Trade Name Freq PRN Reason Stop Dose Admin Lipase/Protease/Amylase 1 each 02/21/20 12:12 Pancrecristiane Simon 10,500 Unit FEEDTUBE PRN PRN For Clogged Feeding Tube Aspirin 81 mg 02/18/20 10:00 02/24/20 09:29 Baby Aspirin PO 81 mg DAILY LOS Administration Atorvastatin Calcium 20 mg 02/18/20 22:00 02/23/20 21:37 Lipitor PO 20 mg QHS LOS Administration Dextrose 50 ml 02/18/20 12:55 D50w (25gm) Syringe IV Q30MIN PRN Hypoglycemia Protocol Docusate Sodium 100 mg 02/20/20 12:00 02/24/20 09:29 Colace PO 100 mg BID LOS Administration Heparin Sodium (Porcine) 5,000 unit 02/24/20 22:00 Heparin SUB-Q Q12HR LOS Hydrophilic Ointment 1 applic 02/17/20 15:12 Vaseline Lip Therapy TP Q2HR PRN Dry Lips Cefepime HCl 2 gm in 100 mls @ 200 mls/hr 02/18/20 09:00 02/24/20 09:28 Cefepime/Ns 2 Gm/100 Ml IV 02/25/20 10:29 200 mls/hr Q24HR LOS Administration Protocol Vasopressin 20 unit/ Sodium 101 mls @ 9.09 mls/hr 02/18/20 10:00 02/21/20 17:10 Chloride IV Infused TITR LOS Titration Protocol 0.03 UNITS/MIN Insulin Human Regular 0 unit 02/18/20 13:00 02/24/20 13:03 Humulin R SUB-Q 3 unit Q6HR LOS Administration Protocol Magnesium Hydroxide 30 ml 02/18/20 02:31 Milk Of Magnesia PO Q4H PRN Constipation Multi-Ingred Cream/Lotion/Oil/Oint 1 applic 02/17/20 15:12 02/19/20 04:25 Artificial Tears Ophth Oint OU 1 applic Q4HR PRN Administration Dry Eye(s) Potassium Chloride 40 meq 02/23/20 10:00 02/24/20 09:29 Potassium Chloride FEEDTUBE 40 meq BID LOS Administration Simple Syrup 15 ml 02/21/20 12:12 Simple Syrup FEEDTUBE PRN PRN Hypoglycemia Simple Syrup 30 ml 02/21/20 12:12 Simple Syrup FEEDTUBE PRN PRN Hypoglycemia Sodium Bicarbonate 325 mg 02/21/20 12:12 Sodium Bicarbonate FEEDTUBE PRN PRN For Clogged Feeding Tube Sodium Chloride 10 ml 02/18/20 10:00 02/24/20 09:31 Sodium Chloride Flush Syringe 10 Ml IV 10 ml BID LOS Administration Sodium Chloride 10 ml 02/18/20 02:31 Sodium Chloride Flush Syringe 10 Ml IV PRN PRN LINE FLUSH
--- NOTE | 2020-02-24 17:16 | Progress Note ---
Assessment and Plan Cultures: Coronavirus PCR 02/05/2020: Negative Coronavirus PCR 02/10/2020: Negative Coronavirus PCR 02/18/2020: Negative MRSA nasal PCR 02/05/2020: Positive 02/04/2020 blood culture: No growth 02/04/2020 tracheal aspirate: Proteus, Hemophilus, MRSA 02/14/2020 blood culture: No growth 02/17/2020 tracheal aspirate: normal resp demetrius 02/17/2020 blood culture: No growth today A/P: 74 y/o male with history of CVA with left hemiparesis, diabetes mellitus, hypertension, dyslipidemia, dementia and peripheral vascular disease, from [facility], recent COVID, admitted on due to AMS and low O2 sats: #Severe sepsis with septic shock: on 2 pressors, elevated lactate; source likely pneumonia/suspect PE post COVID. #Bilateral pneumonia: likely bacterial pneumonia. COVID markers elevated Charmaine tin 1191. Ddmer >10,000. CRP 18. LDH 381. Recent sputum cx with PMDR Proteus, MRSA. H flu. MRSA PCR positive. Elevated procal however possible due to renal failure #Acute resp failure: intubated. Very high ddimer suspect PE post COVID. #Elevated LFTs: from sepsis #AMMY on CKD: renally adjusted meds, required HD during previous admission Recs: -Continue cefepime and vancomycin renally adjusted. Stop date: 02/25/2020 given improvement. If discharging prior to completion please discharge with levofloxacin 750mg q48h. -Agree with full anticoagulation High risk mortality / guarded prognosis consider palliative care Edel Saenz MD [facility] [place] M: [phone] O: [phone] F: [phone] Subjective Date of service: 02/24/20 Principal diagnosis: Septic Shock Interval history: Afebrile, normal white count. Objective - Exam Narrative Exam: Constitutional: Extubated on nasal cannula Head, Ears, Nose: Normocephalic, atraumatic. External ears, nose normal Oral: Limited Eyes: Conjunctivae/corneas clear. No icterus. No ptosis. Neck: limited Cardiovascular: tachy Respiratory: limited GI: limited Musculoskeletal: limited Skin: limited Hem/Lymphatic: limited Psych: limited Neurological: limited - Constitutional Vitals: Vital Signs Temp Pulse Resp BP Pulse Ox 98.0 F 97 H 38 H 113/64 100 02/24/20 03:57 02/24/20 12:00 02/24/20 11:53 02/24/20 03:57 02/24/20 03:57 Temperature -Last 24 Hours Temperature 98.0 F Temperature 99.1 F Temperature 98.7 F - Labs CBC & Chem 7: 02/24/20 05:55 02/24/20 05:55 Labs: Abnormal lab results 02/24/20 02/24/20 02/24/20 Range/Units 05:33 05:55 05:55 RBC 3.17 L (3.65-5.03) M/mm3 Hgb 9.4 L (11.8-15.2) gm/dl Hct 28.2 L (35.5-45.6) % RDW 16.1 H (13.2-15.2) % Plt Count 96 L (140-440) K/mm3 Sodium 146 H (137-145) mmol/L Chloride 110.0 H (98-107) mmol/L BUN 69 H (9-20) mg/dL Creatinine 2.6 H (0.8-1.3) mg/dL Glucose 119 H (75-100) mg/dL POC Glucose 156 H (70-105) Calcium 7.2 L (8.4-10.2) mg/dL Total Creatine Kinase 362 H (55-170) units/L 02/24/20 Range/Units 11:51 RBC (3.65-5.03) M/mm3 Hgb (11.8-15.2) gm/dl Hct (35.5-45.6) % RDW (13.2-15.2) % Plt Count (140-440) K/mm3 Sodium (137-145) mmol/L Chloride (98-107) mmol/L BUN (9-20) mg/dL Creatinine (0.8-1.3) mg/dL Glucose (75-100) mg/dL POC Glucose 155 H (70-105) Calcium (8.4-10.2) mg/dL Total Creatine Kinase (55-170) units/L
[2020-02-24] MEDS: HEPARIN 5,000 UNIT/1 ML VIAL SUB-Q SCH (21:20)
[2020-02-25 06:20] LABS: Hematocrit 25.6 % (35.5-45.6); Hemoglobin 8.6 gm/dl (11.8-15.2)
[2020-02-25] MEDS: INSULIN REGULAR, HUMAN 100 UNIT/ML 3ML VIAL SUB-Q SCH ×4 (08:56→17:41)
--- NOTE | 2020-02-25 10:16 | Progress Note ---
Assessment and Plan Assessment and plan: --Sepsis; right pneumonia/HCAP Continue Vanco and cefepime , follow cultures, supportive care ID,Pulm following --Bilateral pneumonia As noted above. COVID markers elevated Ferritin 1191. Ddmer >10,000. CRP 18. LDH 381. Recent sputum cx with PMDR Proteus, MRSA. H flu. MRSA PCR positive. --elevated D-dimers More than 10,000, on heparin drip V/Q scan low probability for PE lower extremity venous Doppler,neg DVT dc heparin. --Rhabdomyolysis; Continue IV fluids, input output monitoring, CK levels trending down CK [id number] We will monitor renal function --COVID-19 test negative x2 during last admission Test negative during this admission 02/18/2020 However patient has very high levels of inflammatory markers ID consulted, trend the markers --Acute resp failure with hypoxia/extubated 02/19/2020 on nasal cannula oxygen, saturating well Very high ddimer suspect PE post COVID. --Acute kidney injury on chronic kidney disease Secondary to ATN, gentle hydration Avoid nephrotoxins, monitor renal function Nephrology following -- DVT prophylaxis SCD, Heparin ,renal dose PT OT, DC planning 02/24/2020. Patient extubated yesterday and tolerated nasal cannula. Patient's baseline creatinine appears to be 1.6-1.8 2014. Continue IV fluid hydration per nephrology recommendations. CK level was elevated. Therefore, etiology may be from acute kidney injury and rhabdomyolysis. Renal ultrasound revealed chronic medical renal disease and no hydronephrosis. Urine eosinophils negative. Awaiting placement. I discussed the case with case management. 02/25/2020. Patient currently with nasogastric tube and tube feedings at 45 cc an hour. Speech evaluation for swallowing. Patient currently with nasal cannula 3 L O2. Creatinine remains elevated. Recheck BMP. Continue free water flushes 200 ml q 4 hrs via NGT for hypernatremia. Urine eosinophils negative, calcu lated protein to cr ratio 1 g, monitor. Continue vancomycin and cefepime per ID recommendations. History Interval history: No new issues overnight Hospitalist Physical - Constitutional Vitals: Temp Pulse Resp BP Pulse Ox 98.3 F 84 22 106/54 100 02/25/20 08:14 02/25/20 08:14 02/25/20 08:40 02/25/20 08:14 02/25/20 08:14 General appearance: Present: mild distress, well-nourished, other (confused) - EENT Eyes: Present: PERRL, EOM intact ENT: hearing intact, clear oral mucosa, dentition normal - Neck Neck: Present: supple, normal ROM - Respiratory Respiratory effort: normal Respiratory: bilateral: CTA - Cardiovascular Rhythm: regular Heart Sounds: Present: S1 & S2. Absent: gallop, rub - Extremities Extremities: no ischemia, No edema, Full ROM - Abdominal General gastrointestinal: soft, non-tender, non-distended, normal bowel sounds - Integumentary Integumentary: Present: clear, warm, dry - Neurologic Neurologic: CNII-XII intact, moves all extremities HEART Score - HEART Score Troponin: Troponin T 0.573 ng/mL (0.00-0.029) H* D 02/20/20 17:20 Results - Labs CBC & Chem 7: 02/25/20 05:11 02/24/20 05:55 Labs: Laboratory Last Values WBC 4.8 K/mm3 (4.5-11.0) 02/24/20 05:55 RBC 3.17 M/mm3 (3.65-5.03) L 02/24/20 05:55 Hgb 8.6 gm/dl (11.8-15.2) L 02/25/20 05:11 Hct 25.6 % (35.5-45.6) L 02/25/20 05:11 MCV 89 fl (84-94) 02/24/20 05:55 MCH 30 pg (28-32) 02/24/20 05:55 MCHC 34 % (32-34) 02/24/20 05:55 RDW 16.1 % (13.2-15.2) H 02/24/20 05:55 Plt Count 79 K/mm3 (140-440) L 02/25/20 05:11 Lymph % (Auto) 10.5 % (13.4-35.0) L 02/19/20 04:00 Pratt % (Auto) 6.8 % (0.0-7.3) 02/19/20 04:00 Eos % (Auto) 0.4 % (0.0-4.3) 02/19/20 04:00 Baso % (Auto) 0.2 % (0.0-1.8) 02/19/20 04:00 Lymph # 1.8 K/mm3 (1.2-5.4) 02/19/20 04:00 Pratt # 1.2 K/mm3 (0.0-0.8) H 02/19/20 04:00 Eos # 0.1 K/mm3 (0.0-0.4) 02/19/20 04:00 Baso # 0.0 K/mm3 (0.0-0.1) 02/19/20 04:00 Add Manual Diff Complete 02/17/20 16:28 Total Counted 100 02/17/20 16:28 Seg Neutrophils % 82.1 % (40.0-70.0) H 02/19/20 04:00 Seg Neuts % (Manual) 84.0 % (40.0-70.0) H 02/17/20 16:28 Band Neutrophils % 0 % 02/17/20 16:28 Lymphocytes % (Manual) 8.0 % (13.4-35.0) L 02/17/20 16:28 Reactive Lymphs % (Man) 0 % 02/17/20 16:28 Monocytes % (Manual) 8.0 % (0.0-7.3) H 02/17/20 16:28 Eosinophils % (Manual) 0 % (0.0-4.3) 02/17/20 16:28 Basophils % (Manual) 0 % (0.0-1.8) 02/17/20 16:28 Metamyelocytes % 0 % 02/17/20 16:28 Myelocytes % 0 % 02/17/20 16:28 Promyelocytes % 0 % 02/17/20 16:28 Blast Cells % 0 % 02/17/20 16:28 Nucleated RBC % Not Reportable 02/17/20 16:28 Seg Neutrophils # 14.5 K/mm3 (1.8-7.7) H 02/19/20 04:00 Seg Neutrophils # Man 19.7 K/mm3 (1.8-7.7) H 02/17/20 16:28 Band Neutrophils # 0.0 K/mm3 02/17/20 16:28 Lymphocytes # (Manual) 1.9 K/mm3 (1.2-5.4) 02/17/20 16:28 Abs React Lymphs (Man) 0.0 K/mm3 02/17/20 16:28 Monocytes # (Manual) 1.9 K/mm3 (0.0-0.8) H 02/17/20 16:28 Eosinophils # (Manual) 0.0 K/mm3 (0.0-0.4) 02/17/20 16:28 Basophils # (Manual) 0.0 K/mm3 (0.0-0.1) 02/17/20 16:28 Metamyelocytes # 0.0 K/mm3 02/17/20 16:28 Myelocytes # 0.0 K/mm3 02/17/20 16:28 Promyelocytes # 0.0 K/mm3 02/17/20 16:28 Blast Cells # 0.0 K/mm3 02/17/20 16:28 WBC Morphology Not Reportable 02/17/20 16:28 Hypersegmented Neuts Not Reportable 02/17/20 16:28 Hyposegmented Neuts Not Reportable 02/17/20 16:28 Hypogranular Neuts Not Reportable 02/17/20 16:28 Smudge Cells Not Reportable 02/17/20 16:28 Toxic Granulation Not Reportable 02/17/20 16:28 Toxic Vacuolation Not Reportable 02/17/20 16:28 Dohle Bodies Not Reportable 02/17/20 16:28 Pelger-Huet Anomaly Not Reportable 02/17/20 16:28 Krys Rods Not Reportable 02/17/20 16:28 Platelet Estimate Not Reportable 02/17/20 16:28 Clumped Platelets Not Reportable 02/17/20 16:28 Plt Clumps, EDTA Not Reportable 02/17/20 16:28 Large Platelets Not Reportable 02/17/20 16:28 Giant Platelets Not Reportable 02/17/20 16:28 Platelet Satelliting Not Reportable 02/17/20 16:28 Plt Morphology Comment Not Reportable 02/17/20 16:28 RBC Morphology Normal 02/17/20 16:28 Dimorphic RBCs Not Reportable 02/17/20 16:28 Polychromasia Not Reportable 02/17/20 16:28 Hypochromasia Not Reportable 02/17/20 16:28 Poikilocytosis Not Reportable 02/17/20 16:28 Anisocytosis Not Reportable 02/17/20 16:28 Microcytosis Not Reportable 02/17/20 16:28 Macrocytosis Not Reportable 02/17/20 16:28 Spherocytes Not Reportable 02/17/20 16:28 Pappenheimer Bodies Not Reportable 02/17/20 16:28 Sickle Cells Not Reportable 02/17/20 16:28 Target Cells Not Reportable 02/17/20 16:28 Tear Drop Cells Not Reportable 02/17/20 16:28 Ovalocytes Not Reportable 02/17/20 16:28 Helmet Cells Not Reportable 02/17/20 16:28 Lazo-Acequia Bodies Not Reportable 02/17/20 16:28 Ronks Rings Not Reportable 02/17/20 16:28 [place] Cells Not Reportable 02/17/20 16:28 Bite Cells Not Reportable 02/17/20 16:28 Crenated Cell Not Reportable 02/17/20 16:28 Elliptocytes Not Reportable 02/17/20 16:28 Acanthocytes (Spur) Not Reportable 02/17/20 16:28 Rouleaux Not Reportable 02/17/20 16:28 Hemoglobin C Crystals Not Reportable 02/17/20 16:28 Schistocytes Not Reportable 02/17/20 16:28 Malaria parasites Not Reportable 02/17/20 16:28 Keron Bodies Not Reportable 02/17/20 16:28 Hem Pathologist Commnt No 02/17/20 16:28 PT 18.6 Sec. (12.2-14.9) H 02/19/20 03:20 INR 1.53 (0.87-1.13) H 02/19/20 03:20 APTT 26.8 Sec. (24.2-36.6) 02/17/20 16:28 D-Dimer 1327.30 ng/mlDDU (0-234) H 02/20/20 17:20 Heparin Anti-Xa Level < 0.10 U.I./ml (0.3-0.7) L 02/21/20 15:41 ABG pH 7.355 pH Units (7.350-7.450) 02/19/20 05:08 ABG pCO2 27.3 mm Hg 02/19/20 05:08 ABG pO2 168.2 mm Hg (80.0-90.0) H 02/19/20 05:08 ABG HCO3 14.9 mmol/L (20.0-26.0) L 02/19/20 05:08 ABG O2 Saturation 99.0 % (95.0-99.0) 02/19/20 05:08 ABG O2 Content 11.7 (0.0-44) 02/19/20 05:08 ABG Base Excess -9.5 mmol/L (-2.0-3.0) L 02/19/20 05:08 ABG Hemoglobin 8.3 gm/dl (14.0-18.0) L 02/19/20 05:08 ABG Carboxyhemoglobin 1.2 % (0.0-5.0) 02/19/20 05:08 ABG Methemoglobin 0.7 % (0.0-1.5) 02/19/20 05:08 Oxyhemoglobin 97.2 % (95.0-99.0) 02/19/20 05:08 FiO2 40 % 02/19/20 05:08 Sodium 146 mmol/L (137-145) H 02/24/20 05:55 Potassium 4.0 mmol/L (3.6-5.0) D 02/24/20 05:55 Chloride 110.0 mmol/L (98-107) H 02/24/20 05:55 Carbon Dioxide 22 mmol/L (22-30) 02/24/20 05:55 Anion Gap 18 mmol/L 02/24/20 05:55 BUN 69 mg/dL (9-20) H 02/24/20 05:55 Creatinine 2.6 mg/dL (0.8-1.3) H 02/24/20 05:55 Estimated GFR 29 ml/min 02/24/20 05:55 BUN/Creatinine Ratio 27 % 02/24/20 05:55 Glucose 119 mg/dL (75-100) H 02/24/20 05:55 POC Glucose 148 (70-105) H 02/24/20 23:41 Lactic Acid 1.90 mmol/L (0.7-2.0) 02/17/20 22:56 Calcium 7.2 mg/dL (8.4-10.2) L 02/24/20 05:55 Magnesium 1.20 mg/dL (1.7-2.3) L 02/23/20 05:36 Ferritin 1191.0 ng/mL (30.0-300.0) H 02/17/20 16:28 Total Bilirubin 0.50 mg/dL (0.1-1.2) 02/17/20 16:28 AST 65 units/L (5-40) H 02/17/20 16:28 ALT 81 units/L (7-56) H 02/17/20 16:28 Alkaline Phosphatase 101 units/L (35-129) 02/17/20 16:28 Lactate Dehydrogenase 381 units/L (91-180) H 02/17/20 16:28 Total Creatine Kinase 362 units/L (55-170) H 02/24/20 05:55 CK-MB (CK-2) 78.0 ng/mL (0.0-4.0) H 02/18/20 10:10 CK-MB (CK-2) Rel Index 1.3 (0-4) 02/18/20 10:10 Troponin T 0.573 ng/mL (0.00-0.029) H* D 02/20/20 17:20 C-Reactive Protein 18.20 mg/dL (0.00-1.30) H 02/17/20 16:28 NT-Pro-B Natriuret Pep 1980 pg/mL (0-900) H 02/17/20 16:28 Total Protein 5.4 g/dL (6.3-8.2) L 02/17/20 16:28 Albumin 2.3 g/dL (3.9-5) L 02/17/20 16:28 Albumin/Globulin Ratio 0.7 % 02/17/20 16:28 Triglycerides 164 mg/dL (2-149) H 02/18/20 10:10 Cholesterol 133 mg/dL (50-199) 02/18/20 10:10 LDL Cholesterol Direct 71 mg/dL (50-130) 02/18/20 10:10 HDL Cholesterol 38 mg/dL (40-59) L 02/18/20 10:10 Cholesterol/HDL Ratio 3.50 % 02/18/20 10:10 Procalcitonin 6.74 ng/mL (<0.15) 02/17/20 16:28 TSH 3.490 mlU/mL (0.270-4.200) 02/17/20 16:28 Urine Color Yellow (Yellow) 02/17/20 Unknown Urine Turbidity Slightly-cloudy (Clear) 02/17/20 Unknown Urine pH 5.0 (5.0-7.0) 02/17/20 Unknown Ur Specific [place] 1.010 (1.003-1.030) 02/17/20 Unknown Urine Protein 30 mg/dl mg/dL (Negative) 02/17/20 Unknown Urine Glucose (UA) Neg mg/dL (Negative) 02/17/20 Unknown Urine Ketones Neg mg/dL (Negative) 02/17/20 Unknown Urine Blood Mod (Negative) 02/17/20 Unknown Urine Nitrite Neg (Negative) 02/17/20 Unknown Urine Bilirubin Neg (Negative) 02/17/20 Unknown Urine Urobilinogen < 2.0 mg/dL (<2.0) 02/17/20 Unknown Ur Leukocyte Esterase Mod (Negative) 02/17/20 Unknown Urine WBC (Auto) 17.0 /HPF (0.0-6.0) H 02/17/20 Unknown Urine RBC (Auto) 17.0 /HPF (0.0-6.0) 02/17/20 Unknown U Epithel Cells (Auto) 4.0 /HPF (0-13.0) 02/17/20 Unknown Urine Bacteria (Auto) 1+ /HPF (Negative) 02/17/20 Unknown Urine Yeast (Budding) 2+ /HPF 02/17/20 Unknown Urine Eosinophils None seen (None Seen) 02/18/20 17:40 Urine Creatinine 35.2 mg/dL (0.1-20.0) H 02/18/20 17:40 Urine Microalbumin 5.9 mg/dL (0.1-34.0) 02/18/20 17:40 Microalb/Creat Ratio 167.6 ug/mg 02/18/20 17:40 Urine Sodium 104 mmol/L 02/18/20 17:40 Urine Chloride 81.0 mmolL (110-250) L 02/18/20 17:40 Urine Total Protein 38 mg/dL (5-11.8) H 02/18/20 17:40 Nasal Screen MRSA (PCR) Positive (Negative) 02/18/20 17:40 Random Vancomycin 15.6 ug/mL (0-40.0) 09/03/20 05:36 Coronavirus (PCR) Negative (Negative) 02/23/20 09:59 Blood Type B NEGATIVE 02/21/20 10:47 Antibody Screen Negative 02/21/20 10:47 Crossmatch See Detail 02/21/20 10:47 - Diagnostic Impressions Diagnostic Impressions: Echocardiogram 02/19/20 15:05 Transthoracic Echocardiogram Indication: NSTEMI BP: 95/50 HR: 107 Conclusions *Global left ventricular systolic function is at the lower limits of normal. *The estimated ejection fraction is 45-50%. *Abnormal left ventricular diastolic filling is observed, consistent with impaired relaxation. *There is evidence of mild pulmonary hypertension. *There is no pericardial effusion. Findings Left Ventricle: The left ventricular chamber size is normal. Global left ventricular systolic function is at the lower limits of normal. The estimated ejection fraction is 45-50%. Abnormal left ventricular diastolic filling is observed, consistent with impaired relaxation. Left Atrium: The left atrial chamber size is normal. Right Ventricle: The right ventricular cavity size is normal. Right Atrium: The right atrial cavity size is normal. Aortic Valve: Mild aortic leaflet calcification is visualized. There is trace of aortic regurgitation. Mitral Valve: Mild mitral leaflet calcification is visualized. There is no evidence of mitral regurgitation. Tricuspid Valve: The tricuspid valve leaflets are normal. There is mild tricuspid regurgitation. The right ventricular systolic pressure is calculated at 40 mmHg. There is evidence of mild pulmonary hypertension. Pericardium: There is no pericardial effusion. Aorta: The aorta appears normal. Venous: The inferior vena cava appears normal. Measurements Chambers 2D Name Value Normal Range IVSd (2D) 1.09 cm (0.6 - 1.1) LVPWd (2D) 1 cm (0.6 - 1.1) LVIDd (2D) 3.55 cm (3.7 - 5.6) LVIDs (2D) 3 cm (2 - 3.8) LV FS (2D) 15.53 % - Ao root diameter (2D) 3.26 cm (2 - 3.7) Volumes/Mass Name Value Normal Range LA ESV SP 4CH (A/L) 17.3 ml - LA ESV SP 2CH (A/L) 18.3 ml - LA ESV BP (A/L) 19.14 ml - LA ESV BP (A/L) index 9.38 ml/m2 - LA ESV SP 4CH (MOD) 15.02 ml - LA ESV SP 2CH (MOD) 17.03 ml - LA ESV BP (MOD) 17.14 ml - LA ESV BP (MOD) index 8.4 ml/m2 - Diastolic/Systolic Function Name Value Normal Range MV E-wave Vmax 0.56 m/sec - MV deceleration time 197.94 msec - MV A-wave Vmax 1.36 m/sec - MV E:A ratio 0.41 ratio - Aortic Valve Name Value Normal Range AV Vmax 2.3 m/sec - AV VTI 33.77 cm - AV peak gradient 22.91 mmHg - AV mean gradient 12.27 mmHg - LVOT diameter 2.08 cm - LVOT Vmax 0.84 m/sec - LVOT VTI 14.82 cm - LVOT peak gradient 2.82 mmHg - LVOT mean gradient 2 mmHg - SV LVOT 50.44 ml - KALYAN (continuity Vmax) 1.24 cm2 - KALYAN (continuity VTI) 1.49 cm2 - AR PHT 460.84 msec - AR peak gradient 52.84 mmHg - Tricuspid Valve Name Value Normal Range TR Vmax 3.03 m/sec - TR peak gradient 37 mmHg - RAP 3 mmHg - RVSP 40 mmHg - Pulmonic Valve/Qp:Qs Name Value Normal Range PV acceleration time 106.57 msec - Yin/IV: Voiding Method Indwelling Catheter IV Catheter Type [Left Upper INT / Saline Lock arm] IV Catheter Type [Right Triple Lumen Cath Femoral] IV Catheter Type [Right INT / Saline Lock Antecubital] Active Medications - Current Medications Current Medications: Generic Name Dose Route Start Last Admin Trade Name Freq PRN Reason Stop Dose Admin Lipase/Protease/Amylase 1 each 02/21/20 12:12 Pancrecristiane Simon 10,500 Unit FEEDTUBE PRN PRN For Clogged Feeding Tube Aspirin 81 mg 02/18/20 10:00 02/24/20 09:29 Baby Aspirin PO 81 mg DAILY LOS Administration Atorvastatin Calcium 20 mg 02/18/20 22:00 02/24/20 21:20 Lipitor PO 20 mg QHS LOS Administration Dextrose 50 ml 02/18/20 12:55 D50w (25gm) Syringe IV Q30MIN PRN Hypoglycemia Protocol Docusate Sodium 100 mg 02/20/20 12:00 02/24/20 21:20 Colace PO 100 mg BID LOS Administration Heparin Sodium (Porcine) 5,000 unit 02/24/20 22:00 02/24/20 21:20 Heparin SUB-Q 5,000 unit Q12HR LOS Administration Hydrophilic Ointment 1 applic 02/17/20 15:12 Vaseline Lip Therapy TP Q2HR PRN Dry Lips Cefepime HCl 2 gm in 100 mls @ 200 mls/hr 02/18/20 09:00 02/24/20 09:28 Cefepime/Ns 2 Gm/100 Ml IV 02/25/20 10:29 200 mls/hr Q24HR LOS Administration Protocol Vasopressin 20 unit/ Sodium 101 mls @ 9.09 mls/hr 02/18/20 10:00 02/21/20 17:10 Chloride IV Infused TITR LOS Titration Protocol 0.03 UNITS/MIN Insulin Human Regular 0 unit 02/18/20 13:00 02/25/20 08:56 Humulin R SUB-Q Not Given Q6HR LOS Protocol Magnesium Hydroxide 30 ml 02/18/20 02:31 Milk Of Magnesia PO Q4H PRN Constipation Multi-Ingred Cream/Lotion/Oil/Oint 1 applic 02/17/20 15:12 02/19/20 04:25 Artificial Tears Ophth Oint OU 1 applic Q4HR PRN Administration Dry Eye(s) Potassium Chloride 40 meq 02/23/20 10:00 02/24/20 21:20 Potassium Chloride FEEDTUBE 40 meq BID LOS Administration Simple Syrup 15 ml 02/21/20 12:12 Simple Syrup FEEDTUBE PRN PRN Hypoglycemia Simple Syrup 30 ml 02/21/20 12:12 Simple Syrup FEEDTUBE PRN PRN Hypoglycemia Sodium Bicarbonate 325 mg 02/21/20 12:12 Sodium Bicarbonate FEEDTUBE PRN PRN For Clogged Feeding Tube Sodium Chloride 10 ml 02/18/20 10:00 02/24/20 21:22 Sodium Chloride Flush Syringe 10 Ml IV 10 ml BID LOS Administration Sodium Chloride 10 ml 02/18/20 02:31 Sodium Chloride Flush Syringe 10 Ml IV PRN PRN LINE FLUSH Nutrition/Malnutrition Assess - Dietary Evaluation Nutrition/Malnutrition Findings: Nutrition Notes Start: 02/18/20 10:34 Freq: Status: Active Protocol: Document 02/23/20 13:11 AT (Rec: 09/03/20 14:27 AT [facility]-[id number]) Co-Sign 02/23/20 13:11 LM Nutrition Notes Initial or Follow up Reassessment Current Diagnosis CKD(stage I-IV),Diabetes, Sepsis,Hypertension, Hyperlipidemia Other Pertinent Diagnosis UTI, Dementia Current Diet TF Labs/Tests K 3.0 BUN 53 Cr 2.3 Ca 7.0 Mg 1.2 Pertinent Medications Levophed Height 6 ft Weight 87.2 kg [place] Body Weight (kg) 80.90 BMI 26.0 Weight Status Overweight Subjective/Other Information Follow-up on TF and Bello administration. Pt is at goal rate of 45 mL/hr; flush 200 mL q4hr. Nurse reports that pt is tolerating TF well; pt has a soft abdomen and does not have N/V. Nurse has not seen Bello and thus has not administered the supplement. Provided Bello to RN. Pt was extubated. Percent of energy/protein needs met: 98%/100% Burn Absent Trauma Absent GI Symptoms None Current % PO Negligible Minimum of two criteria No physical signs of malnutrition #2 Nutrition Diagnosis Increased nutrient needs ( specify in comment below) Comments: protein Diagnosis Progress(for reassessment Continues documentation) #1 Nutrition Diagnosis Inadequate oral intake Diagnosis Progress(for reassessment Continues documentation) Is patient on ventilator? No Is Patient Ambulatory and/or Out of Bed No REE-([facility]-confined to bed) 1979.156 Calculation Used for Recommendations [facility] Additional Notes PRO needs: 69 - 130 g (0.8 - 1 .5 g/kg) Fluid needs: 1 mL/kcal Nutrition Intervention Change Diet Order: Continue TF Nutrition Support: Nepro at 45ml/hr Flush at 200ml q4hr Kcal 1,944 Protein (gm) 87 Fluid (mL) 785 % RDI: 100 Add Supplement/Snack (indicate name/kcal Bello BID /protein ) Provides kCal: 190 Provides Protein (gm) 5 Goal #1 TF tolerance Goal #2 Meet 80% of energy and protein needs via TF. Goal #3 Pt will receive Bello BID Anticipated Discharge Needs: Unable to determine at this time. Follow-Up By: 02/29/20 Additional Comments Follow up for continued tolerance of TF and Bello administration.
--- NOTE | 2020-02-25 10:25 | Progress Note ---
Assessment and Plan Acute Kidney Injury 2/2 ischemic ATN from septic shock, Rhabdo, on underlying CKD, no obstruction Acute hypoxic respiratory failure Septic Shock 2/2 PNA Bilateral PNA Elevated D-Dimers Plan: - Cr worsening, making urine. Will give albumin 25% 100 mls q6H X 3 doses. - Urine Cr was low so likely has ATN - K is 4.6, dc KCL. - Review of labs in 2015 in [facility] did show SCr level between 1.6-1.8, most recent SCr level in [facility] prior to this admission was 2.2 on 02/14/20 - S/p Bicarb drip - CK level was elevated so could have AMMY from contribution from Rhabdo as well - Off pressors - No hydronephrosis noted on Renal US - Continue free water flushes 200 ml q 4 hrs via NGT for hypernatremia - CK level 362 yesterday - Urine eosinophils negative, calculated protein to cr ratio 1 g, monitor - Renally dose meds Subjective Date of service: 02/25/20 Principal diagnosis: Septic Shock Interval history: Making urine. Objective - Exam Narrative Exam: General appearance: other EENT: ATNC Neck: no JVD Respiratory: Present: Decreased Breath Sounds Cardiology: regular, S1S2 Gastrointestinal: normoactive bowel sounds (nasogastric tube in place) Neurologic: other (pt doesn't follow commands) Musculoskeletal: other (trace edema to BLE) - Vital Signs Vital signs: Vital Signs - 12hr 02/24/20 02/24/20 02/25/20 22:49 23:00 00:00 Temperature 98.0 F Pulse Rate 66 66 Respiratory 18 Rate Blood Pressure 100/56 O2 Sat by Pulse 100 100 Oximetry 02/25/20 02/25/20 02/25/20 04:00 04:09 08:14 Temperature 98.0 F 98.3 F Pulse Rate 66 84 84 Respiratory 18 20 Rate Blood Pressure 91/52 106/54 O2 Sat by Pulse 99 100 Oximetry 02/25/20 08:40 Temperature Pulse Rate Respiratory 22 Rate Blood Pressure O2 Sat by Pulse Oximetry - Lab 02/25/20 05:11 02/25/20 10:39 Most recent lab results ABG pH 7.355 pH Units (7.350-7.450) 02/19/20 05:08 ABG pCO2 27.3 mm Hg 02/19/20 05:08 ABG pO2 168.2 mm Hg (80.0-90.0) H 02/19/20 05:08 ABG HCO3 14.9 mmol/L (20.0-26.0) L 02/19/20 05:08 ABG O2 Saturation 99.0 % (95.0-99.0) 02/19/20 05:08 Calcium 7.2 mg/dL (8.4-10.2) L 02/24/20 05:55 Magnesium 1.20 mg/dL (1.7-2.3) L 02/23/20 05:36 Urine Creatinine 35.2 mg/dL (0.1-20.0) H 02/18/20 17:40 Urine Sodium 104 mmol/L 02/18/20 17:40 Urine Total Protein 38 mg/dL (5-11.8) H 02/18/20 17:40 Medications & Allergies - Medications Allergies/Adverse Reactions: Allergies No Known Allergies Allergy (Unverified 05/01/15 23:41) Home Medications: Home Medications Medication Instructions Recorded Confirmed Last Taken Type Acetaminophen [Acetaminophen TAB] 650 mg PO Q8H PRN 05/02/15 02/18/20 Unknown History Albuterol Sulfate [Albuterol 0.63% 0.63 mg IH Q6H PRN 05/02/15 02/18/20 Unknown History NEBS] Aspirin [Aspirin BABY CHEW TAB] 81 mg PO DAILY 05/02/15 02/18/20 05/01/15 History AtorvaSTATin [Lipitor] 20 mg PO QHS 05/02/15 02/18/20 05/01/15 History Docusate Sodium [Colace CAP] 100 mg PO BID 05/02/15 02/18/20 05/02/15 History Insulin Lispro [HumaLOG VIAL] See Protocol SUB-Q ACHS 05/02/15 02/18/20 05/01/15 History amLODIPine 5 mg PO DAILY 05/02/15 02/18/20 05/01/15 History Active Medications: Generic Name Dose Route Start Last Admin Trade Name Freq PRN Reason Stop Dose Admin Lipase/Protease/Amylase 1 each 02/21/20 12:12 Pancrecristiane Simon 10,500 Unit FEEDTUBE PRN PRN For Clogged Feeding Tube Aspirin 81 mg 02/18/20 10:00 02/24/20 09:29 Baby Aspirin PO 81 mg DAILY LOS Administration Atorvastatin Calcium 20 mg 02/18/20 22:00 02/24/20 21:20 Lipitor PO 20 mg QHS LOS Administration Dextrose 50 ml 02/18/20 12:55 D50w (25gm) Syringe IV Q30MIN PRN Hypoglycemia Protocol Docusate Sodium 100 mg 02/20/20 12:00 02/24/20 21:20 Colace PO 100 mg BID LOS Administration Heparin Sodium (Porcine) 5,000 unit 02/24/20 22:00 02/24/20 21:20 Heparin SUB-Q 5,000 unit Q12HR LOS Administration Hydrophilic Ointment 1 applic 02/17/20 15:12 Vaseline Lip Therapy TP Q2HR PRN Dry Lips Cefepime HCl 2 gm in 100 mls @ 200 mls/hr 02/18/20 09:00 02/24/20 09:28 Cefepime/Ns 2 Gm/100 Ml IV 02/25/20 10:29 200 mls/hr Q24HR LOS Administration Protocol Vasopressin 20 unit/ Sodium 101 mls @ 9.09 mls/hr 02/18/20 10:00 02/21/20 17 :10 Chloride IV Infused TITR [facility] Titration Protocol 0.03 UNITS/MIN Insulin Human Regular 0 unit 02/18/20 13:00 02/25/20 08:56 Humulin R SUB-Q Not Given Q6HR [facility] Protocol Magnesium Hydroxide 30 ml 02/18/20 02:31 Milk Of Magnesia PO Q4H PRN Constipation Multi-Ingred Cream/Lotion/Oil/Oint 1 applic 02/17/20 15:12 02/19/20 04:25 Artificial Tears Ophth Oint OU 1 applic Q4HR PRN Administration Dry Eye(s) Potassium Chloride 40 meq 02/23/20 10:00 02/24/20 21:20 Potassium Chloride FEEDTUBE 40 meq BID LOS Administration Simple Syrup 15 ml 02/21/20 12:12 Simple Syrup FEEDTUBE PRN PRN Hypoglycemia Simple Syrup 30 ml 02/21/20 12:12 Simple Syrup FEEDTUBE PRN PRN Hypoglycemia Sodium Bicarbonate 325 mg 02/21/20 12:12 Sodium Bicarbonate FEEDTUBE PRN PRN For Clogged Feeding Tube Sodium Chloride 10 ml 02/18/20 10:00 02/24/20 21:22 Sodium Chloride Flush Syringe 10 Ml IV 10 ml BID LOS Administration Sodium Chloride 10 ml 02/18/20 02:31 Sodium Chloride Flush Syringe 10 Ml IV PRN PRN LINE FLUSH
--- NOTE | 2020-02-25 10:48 | XRay Report ---
CHEST 1 VIEW 02/25/2020 9:35 AM INDICATION / CLINICAL INFORMATION: chest pain. COMPARISON: 02/20/20 FINDINGS: SUPPORT DEVICES: Esophagogastric tube is unchanged. HEART / MEDIASTINUM: Stable. LUNGS / PLEURA: Bibasilar pulmonary opacities are unchanged. No pneumothorax. ADDITIONAL FINDINGS: No significant additional findings. IMPRESSION: 1. No significant change. Signer Name: Tosha Bazan MD Signed: 02/25/2020 10:44 AM Workstation Name: [id number]
[2020-02-25 11:09] LABS: Calcium 7.5 mg/dL (8.4-10.2)
--- NOTE | 2020-02-25 11:22 | Progress Note ---
Assessment and Plan ssessment and Plan 74 y/o male with known dementia, mumbles very few words at baseline if any, blank stares, admitted with altered mental status, respiratory failure, worsening renal failure and sepsis with shock. Poor airway clearance with retained secretions bibasilar opacities on cxr suggestive of pleural e ffusion/infiltrate/atelectasis 1. Pulm-extubated on nasal cannula. Ordered NT suction qshift. Will continue 2. CV- stable now 3. Renal- CK dropping but appears Cr and BUN may have become stagnet. Await renal recs for today. 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 Not for COVID 4. Follow-up chest x-ray on Thursday. Subjective Date of service: 02/25/20 Principal diagnosis: Septic Shock Interval history: Awake and responsive has cough remains on oxygen. Objective Vital Signs - 12hr 02/25/20 02/25/20 02/25/20 00:00 04:00 04:09 Temperature 98.0 F Pulse Rate 66 66 84 Respiratory 18 Rate Blood Pressure 91/52 O2 Sat by Pulse 99 Oximetry 02/25/20 02/25/20 02/25/20 08:14 08:40 08:54 Temperature 98.3 F Pulse Rate 84 Respiratory 20 22 Rate Blood Pressure 106/54 O2 Sat by Pulse 100 98 Oximetry Constitutional: alert ENT: other (orally intubated critically ill on vent) Neck: supple Effort: mildly labored Ascultation: Bilateral: diminished breath sounds, rhonchi (Bilateral upper airway noises) Percussion: Bilateral: not dull Cardiovascular: other (sinus tachycardia) Neurologic: unable to assess CBC and BMP: 02/25/20 05:11 02/25/20 10:39 ABG, PT/INR, D-dimer: ABG ABG pH 7.355 pH Units (7.350-7.450) 02/19/20 05:08 ABG pCO2 27.3 mm Hg 02/19/20 05:08 ABG pO2 168.2 mm Hg (80.0-90.0) H 02/19/20 05:08 ABG O2 Saturation 99.0 % (95.0-99.0) 02/19/20 05:08 PT/INR, D-dimer PT 18.6 Sec. (12.2-14.9) H 02/19/20 03:20 INR 1.53 (0.87-1.13) H 02/19/20 03:20 D-Dimer 1327.30 ng/mlDDU (0-234) H 02/20/20 17:20 Abnormal lab findings: Abnormal Labs 02/17/20 02/17/20 02/17/20 16:28 16:28 16:28 WBC 23.5 H RBC 3.07 L Hgb 9.1 L Hct 28.4 L RDW 16.8 H Plt Count Lymph % (Auto) [place] # Seg Neutrophils % Seg Neuts % (Manual) 84.0 H Lymphocytes % (Manual) 8.0 L Monocytes % (Manual) 8.0 H Seg Neutrophils # Seg Neutrophils # Man 19.7 H Monocytes # (Manual) 1.9 H PT 15.3 H INR 1.19 H D-Dimer Heparin Anti-Xa Level ABG pH ABG pO2 ABG HCO3 ABG O2 Saturation ABG Base Excess ABG Hemoglobin Sodium 136 L Potassium 5.4 H Chloride Carbon Dioxide 15 L BUN 91 H Creatinine 3.7 H D Glucose 120 H POC Glucose Lactic Acid Calcium 7.9 L Magnesium Ferritin AST 65 H ALT 81 H Lactate Dehydrogenase Total Creatine Kinase CK-MB (CK-2) Troponin T C-Reactive Protein NT-Pro-B Natriuret Pep Total Protein 5.4 L Albumin 2.3 L Triglycerides HDL Cholesterol Urine WBC (Auto) Urine Creatinine Urine Chloride Urine Total Protein Crossmatch 02/17/20 02/17/20 02/17/20 16:28 16:28 16:28 WBC RBC Hgb Hct RDW Plt Count Lymph % (Auto) [place] # Seg Neutrophils % Seg Neuts % (Manual) Lymphocytes % (Manual) Monocytes % (Manual) Seg Neutrophils # Seg Neutrophils # Man Monocytes # (Manual) PT INR D-Dimer > 13941 H Heparin Anti-Xa Level ABG pH ABG pO2 ABG HCO3 ABG O2 Saturation ABG Base Excess ABG Hemoglobin Sodium Potassium Chloride Carbon Dioxide BUN Creatinine Glucose POC Glucose Lactic Acid 2.70 H* Calcium Magnesium Ferritin AST ALT Lactate Dehydrogenase Total Creatine Kinase CK-MB (CK-2) Troponin T 0.748 H* C-Reactive Protein NT-Pro-B Natriuret Pep 1980 H Total Protein Albumin Triglycerides HDL Cholesterol Urine WBC (Auto) Urine Creatinine Urine Chloride Urine Total Protein Crossmatch 08/02/17/20 02/17/20 16:28 16:28 18:35 WBC RBC Hgb Hct RDW Plt Count Lymph % (Auto) [place] # Seg Neutrophils % Seg Neuts % (Manual) Lymphocytes % (Manual) Monocytes % (Manual) Seg Neutrophils # Seg Neutrophils # Man Monocytes # (Manual) PT INR D-Dimer Heparin Anti-Xa Level ABG pH 7.303 L ABG pO2 327.3 H ABG HCO3 12.5 L ABG O2 Saturation 99.5 H ABG Base Excess -12.3 L ABG Hemoglobin 11.2 L Sodium Potassium Chloride Carbon Dioxide BUN Creatinine Glucose POC Glucose Lactic Acid Calcium Magnesium Ferritin 1191.0 H AST ALT Lactate Dehydrogenase 381 H Total Creatine Kinase CK-MB (CK-2) Troponin T C-Reactive Protein 18.20 H NT-Pro-B Natriuret Pep Total Protein Albumin Triglycerides HDL Cholesterol Urine WBC (Auto) Urine Creatinine Urine Chloride Urine Total Protein Crossmatch 02/17/20 02/18/20 02/18/20 Unknown 05:20 10:10 WBC RBC Hgb Hct RDW Plt Count Lymph % (Auto) [place] # Seg Neutrophils % Seg Neuts % (Manual) Lymphocytes % (Manual) Monocytes % (Manual) Seg Neutrophils # Seg Neutrophils # Man Monocytes # (Manual) PT INR D-Dimer Heparin Anti-Xa Level ABG pH 7.217 L ABG pO2 165.7 H ABG HCO3 10.5 L ABG O2 Saturation ABG Base Excess -15.7 L ABG Hemoglobin 10.3 L Sodium Potassium Chloride Carbon Dioxide BUN Creatinine Glucose POC Glucose Lactic Acid Calcium Magnesium Ferritin AST ALT Lactate Dehydrogenase Total Creatine Kinase 5660 H CK-MB (CK-2) 78.0 H Troponin T 1.030 H* D C-Reactive Protein NT-Pro-B Natriuret Pep Total Protein Albumin Triglycerides 164 H HDL Cholesterol 38 L Urine WBC (Auto) 17.0 H Urine Creatinine Urine Chloride Urine Total Protein Crossmatch 02/18/20 02/18/20 02/18/20 12:14 17:32 17:40 WBC RBC Hgb Hct RDW Plt Count Lymph % (Auto) [place] # Seg Neutrophils % Seg Neuts % (Manual) Lymphocytes % (Manual) Monocytes % (Manual) Seg Neutrophils # Seg Neutrophils # Man Monocytes # (Manual) PT INR D-Dimer Heparin Anti-Xa Level ABG pH ABG pO2 ABG HCO3 ABG O2 Saturation ABG Base Excess ABG Hemoglobin Sodium Potassium Chloride Carbon Dioxide BUN Creatinine Glucose POC Glucose 193 H 191 H Lactic Acid Calcium Magnesium Ferritin AST ALT Lactate Dehydrogenase Total Creatine Kinase CK-MB (CK-2) Troponin T C-Reactive Protein NT-Pro-B Natriuret Pep Total Protein Albumin Triglycerides HDL Cholesterol Urine WBC (Auto) Urine Creatinine 35.2 H Urine Chloride 81.0 L Urine Total Protein 38 H Crossmatch 02/18/20 02/19/20 02/19/20 17:40 00:04 01:50 WBC RBC Hgb Hct RDW Plt Count Lymph % (Auto) [place] # Seg Neutrophils % Seg Neuts % (Manual) Lymphocytes % (Manual) Monocytes % (Manual) Seg Neutrophils # Seg Neutrophils # Man Monocytes # (Manual) PT INR D-Dimer Heparin Anti-Xa Level 0.18 L ABG pH ABG pO2 ABG HCO3 ABG O2 Saturation ABG Base Excess ABG Hemoglobin Sodium Potassium Chloride 111.4 H Carbon Dioxide 11 L BUN 77 H Creatinine 2.8 H Glucose 168 H POC Glucose 145 H Lactic Acid Calcium 7.2 L Magnesium Ferritin AST ALT Lactate Dehydrogenase Total Creatine Kinase CK-MB (CK-2) Troponin T C-Reactive Protein NT-Pro-B Natriuret Pep Total Protein Albumin Triglycerides HDL Cholesterol Urine WBC (Auto) Urine Creatinine Urine Chloride Urine Total Protein Crossmatch 02/19/20 02/19/20 02/19/20 03:20 04:00 05:08 WBC 17.6 H RBC 2.76 L Hgb 8.1 L Hct 25.0 L RDW 16.6 H Plt Count Lymph % (Auto) 10.5 L [place] # 1.2 H Seg Neutrophils % 82.1 H Seg Neuts % (Manual) Lymphocytes % (Manual) Monocytes % (Manual) Seg Neutrophils # 14.5 H Seg Neutrophils # Man Monocytes # (Manual) PT 18.6 H INR 1.53 H D-Dimer Heparin Anti-Xa Level ABG pH ABG pO2 168.2 H ABG HCO3 14.9 L ABG O2 Saturation ABG Base Excess -9.5 L ABG Hemoglobin 8.3 L Sodium Potassium Chloride Carbon Dioxide BUN Creatinine Glucose POC Glucose Lactic Acid Calcium Magnesium Ferritin AST ALT Lactate Dehydrogenase Total Creatine Kinase CK-MB (CK-2) Troponin T C-Reactive Protein NT-Pro-B Natriuret Pep Total Protein Albumin Triglycerides HDL Cholesterol Urine WBC (Auto) Urine Creatinine Urine Chloride Urine Total Protein Crossmatch 02/19/20 02/19/20 02/19/20 05:38 05:50 09:10 WBC RBC Hgb Hct RDW Plt Count Lymph % (Auto) [place] # Seg Neutrophils % Seg Neuts % (Manual) Lymphocytes % (Manual) Monocytes % (Manual) Seg Neutrophils # Seg Neutrophils # Man Monocytes # (Manual) PT INR D-Dimer Heparin Anti-Xa Level ABG pH ABG pO2 ABG HCO3 ABG O2 Saturation ABG Base Excess ABG Hemoglobin Sodium Potassium Chloride 111.6 H 111.9 H Carbon Dioxide 14 L 15 L BUN 69 H 68 H Creatinine 2.6 H 2.5 H Glucose 151 H 154 H POC Glucose 143 H Lactic Acid Calcium 7.4 L 7.2 L Magnesium Ferritin AST ALT Lactate Dehydrogenase Total Creatine Kinase 3552 H CK-MB (CK-2) Troponin T C-Reactive Protein NT-Pro-B Natriuret Pep Total Protein Albumin Triglycerides HDL Cholesterol Urine WBC (Auto) Urine Creatinine Urine Chloride Urine Total Protein Crossmatch 02/19/20 02/19/20 02/19/20 11:41 12:00 17:46 WBC RBC Hgb Hct RDW Plt Count Lymph % (Auto) [place] # Seg Neutrophils % Seg Neuts % (Manual) Lymphocytes % (Manual) Monocytes % (Manual) Seg Neutrophils # Seg Neutrophils # Man Monocytes # (Manual) PT INR D-Dimer Heparin Anti-Xa Level 0.11 L ABG pH ABG pO2 ABG HCO3 ABG O2 Saturation ABG Base Excess ABG Hemoglobin Sodium Potassium Chloride Carbon Dioxide BUN Creatinine Glucose POC Glucose 160 H 133 H Lactic Acid Calcium Magnesium Ferritin AST ALT Lactate Dehydrogenase Total Creatine Kinase CK-MB (CK-2) Troponin T C-Reactive Protein NT-Pro-B Natriuret Pep Total Protein Albumin Triglycerides HDL Cholesterol Urine WBC (Auto) Urine Creatinine Urine Chloride Urine Total Protein Crossmatch 02/19/20 02/19/20 02/20/20 20:02 23:50 04:44 WBC RBC 2.64 L Hgb 7.9 L Hct 24.1 L RDW 16.3 H Plt Count 137 L Lymph % (Auto) [place] # Seg Neutrophils % Seg Neuts % (Manual) Lymphocytes % (Manual) Monocytes % (Manual) Seg Neutrophils # Seg Neutrophils # Man Monocytes # (Manual) PT INR D-Dimer Heparin Anti-Xa Level 0.12 L ABG pH ABG pO2 ABG HCO3 ABG O2 Saturation ABG Base Excess ABG Hemoglobin Sodium Potassium Chloride Carbon Dioxide BUN Creatinine Glucose POC Glucose 128 H Lactic Acid Calcium Magnesium Ferritin AST ALT Lactate Dehydrogenase Total Creatine Kinase CK-MB (CK-2) Troponin T C-Reactive Protein NT-Pro-B Natriuret Pep Total Protein Albumin Triglycerides HDL Cholesterol Urine WBC (Auto) Urine Creatinine Urine Chloride Urine Total Protein Crossmatch 02/20/20 02/20/20 02/20/20 04:44 04:44 10:00 WBC RBC Hgb Hct RDW Plt Count Lymph % (Auto) [place] # Seg Neutrophils % Seg Neuts % (Manual) Lymphocytes % (Manual) Monocytes % (Manual) Seg Neutrophils # Seg Neutrophils # Man Monocytes # (Manual) PT INR D-Dimer Heparin Anti-Xa Level 0.15 L < 0.10 L ABG pH ABG pO2 ABG HCO3 ABG O2 Saturation ABG Base Excess ABG Hemoglobin Sodium Potassium Chloride 110.4 H Carbon Dioxide 19 L BUN 61 H Creatinine 2.4 H Glucose POC Glucose Lactic Acid Calcium 7.3 L Magnesium Ferritin AST ALT Lactate Dehydrogenase Total Creatine Kinase 2238 H CK-MB (CK-2) Troponin T C-Reactive Protein NT-Pro-B Natriuret Pep Total Protein Albumin Triglycerides HDL Cholesterol Urine WBC (Auto) Urine Creatinine Urine Chloride Urine Total Protein Crossmatch 02/20/20 02/20/20 02/20/20 12:58 17:20 17:20 WBC RBC Hgb Hct RDW Plt Count Lymph % (Auto) [place] # Seg Neutrophils % Seg Neuts % (Manual) Lymphocytes % (Manual) Monocytes % (Manual) Seg Neutrophils # Seg Neutrophils # Man Monocytes # (Manual) PT INR D-Dimer 1327.30 H Heparin Anti-Xa Level 0.17 L ABG pH ABG pO2 ABG HCO3 ABG O2 Saturation ABG Base Excess ABG Hemoglobin Sodium Potassium Chloride Carbon Dioxide BUN Creatinine Glucose POC Glucose 123 H Lactic Acid Calcium Magnesium Ferritin AST ALT Lactate Dehydrogenase Total Creatine Kinase CK-MB (CK-2) Troponin T C-Reactive Protein NT-Pro-B Natriuret Pep Total Protein Albumin Triglycerides HDL Cholesterol Urine WBC (Auto) Urine Creatinine Urine Chloride Urine Total Protein Crossmatch 02/20/20 02/20/20 02/20/20 17:20 18:11 23:52 WBC RBC Hgb Hct RDW Plt Count Lymph % (Auto) [place] # Seg Neutrophils % Seg Neuts % (Manual) Lymphocytes % (Manual) Monocytes % (Manual) Seg Neutrophils # Seg Neutrophils # Man Monocytes # (Manual) PT INR D-Dimer Heparin Anti-Xa Level ABG pH ABG pO2 ABG HCO3 ABG O2 Saturation ABG Base Excess ABG Hemoglobin Sodium Potassium Chloride Carbon Dioxide BUN Creatinine Glucose POC Glucose 156 H 153 H Lactic Acid Calcium Magnesium Ferritin AST ALT Lactate Dehydrogenase Total Creatine Kinase CK-MB (CK-2) Troponin T 0.573 H* D C-Reactive Protein NT-Pro-B Natriuret Pep Total Protein Albumin Triglycerides HDL Cholesterol Urine WBC (Auto) Urine Creatinine Urine Chloride Urine Total Protein Crossmatch 02/21/20 02/21/20 02/21/20 04:39 04:39 05:12 WBC RBC 2.35 L Hgb 6.9 L Hct 21.1 L RDW 16.2 H Plt Count 126 L Lymph % (Auto) [place] # Seg Neutrophils % Seg Neuts % (Manual) Lymphocytes % (Manual) Monocytes % (Manual) Seg Neutrophils # Seg Neutrophils # Man Monocytes # (Manual) PT INR D-Dimer Heparin Anti-Xa Level ABG pH ABG pO2 ABG HCO3 ABG O2 Saturation ABG Base Excess ABG Hemoglobin Sodium Potassium Chloride Carbon Dioxide BUN 54 H Creatinine 2.2 H Glucose 120 H POC Glucose 139 H Lactic Acid Calcium 6.8 L Magnesium Ferritin AST ALT Lactate Dehydrogenase Total Creatine Kinase 1488 H CK-MB (CK-2) Troponin T C-Reactive Protein NT-Pro-B Natriuret Pep Total Protein Albumin Triglycerides HDL Cholesterol Urine WBC (Auto) Urine Creatinine Urine Chloride Urine Total Protein Crossmatch 02/21/20 02/21/20 02/21/20 10:47 13:24 15:41 WBC RBC Hgb Hct RDW Plt Count Lymph % (Auto) [place] # Seg Neutrophils % Seg Neuts % (Manual) Lymphocytes % (Manual) Monocytes % (Manual) Seg Neutrophils # Seg Neutrophils # Man Monocytes # (Manual) PT INR D-Dimer Heparin Anti-Xa Level < 0.10 L ABG pH ABG pO2 ABG HCO3 ABG O2 Saturation ABG Base Excess ABG Hemoglobin Sodium Potassium Chloride Carbon Dioxide BUN Creatinine Glucose POC Glucose 107 H Lactic Acid Calcium Magnesium Ferritin AST ALT Lactate Dehydrogenase Total Creatine Kinase CK-MB (CK-2) Troponin T C-Reactive Protein NT-Pro-B Natriuret Pep Total Protein Albumin Triglycerides HDL Cholesterol Urine WBC (Auto) Urine Creatinine Urine Chloride Urine Total Protein Crossmatch See Detail 02/22/20 02/22/20 02/22/20 05:13 05:13 12:24 WBC RBC 3.18 L Hgb 9.5 L Hct 27.6 L D RDW 15.9 H Plt Count 114 L Lymph % (Auto) [place] # Seg Neutrophils % Seg Neuts % (Manual) Lymphocytes % (Manual) Monocytes % (Manual) Seg Neutrophils # Seg Neutrophils # Man Monocytes # (Manual) PT INR D-Dimer Heparin Anti-Xa Level ABG pH ABG pO2 ABG HCO3 ABG O2 Saturation ABG Base Excess ABG Hemoglobin Sodium Potassium Chloride Carbon Dioxide BUN 52 H Creatinine 2.3 H Glucose 103 H POC Glucose 122 H Lactic Acid Calcium 6.7 L Magnesium Ferritin AST ALT Lactate Dehydrogenase Total Creatine Kinase 865 H CK-MB (CK-2) Troponin T C-Reactive Protein NT-Pro-B Natriuret Pep Total Protein Albumin Triglycerides HDL Cholesterol Urine WBC (Auto) Urine Creatinine Urine Chloride Urine Total Protein Crossmatch 02/22/20 02/23/20 02/23/20 17:17 05:27 05:36 WBC RBC 3.15 L Hgb 9.4 L Hct 27.6 L RDW 15.9 H Plt Count 97 L Lymph % (Auto) [place] # Seg Neutrophils % Seg Neuts % (Manual) Lymphocytes % (Manual) Monocytes % (Manual) Seg Neutrophils # Seg Neutrophils # Man Monocytes # (Manual) PT INR D-Dimer Heparin Anti-Xa Level ABG pH ABG pO2 ABG HCO3 ABG O2 Saturation ABG Base Excess ABG Hemoglobin Sodium Potassium Chloride Carbon Dioxide BUN Creatinine Glucose POC Glucose 165 H 120 H Lactic Acid Calcium Magnesium Ferritin AST ALT Lactate Dehydrogenase Total Creatine Kinase CK-MB (CK-2) Troponin T C-Reactive Protein NT-Pro-B Natriuret Pep Total Protein Albumin Triglycerides HDL Cholesterol Urine WBC (Auto) Urine Creatinine Urine Chloride Urine Total Protein Crossmatch 02/23/20 02/23/20 02/23/20 05:36 05:36 11:57 WBC RBC Hgb Hct RDW Plt Count Lymph % (Auto) [place] # Seg Neutrophils % Seg Neuts % (Manual) Lymphocytes % (Manual) Monocytes % (Manual) Seg Neutrophils # Seg Neutrophils # Man Monocytes # (Manual) PT INR D-Dimer Heparin Anti-Xa Level ABG pH ABG pO2 ABG HCO3 ABG O2 Saturation ABG Base Excess ABG Hemoglobin Sodium Potassium 3.0 L D Chloride Carbon Dioxide BUN 53 H Creatinine 2.3 H Glucose 115 H POC Glucose 162 H Lactic Acid Calcium 7.0 L Magnesium 1.20 L Ferritin AST ALT Lactate Dehydrogenase Total Creatine Kinase 476 H CK-MB (CK-2) Troponin T C-Reactive Protein NT-Pro-B Natriuret Pep Total Protein Albumin Triglycerides HDL Cholesterol Urine WBC (Auto) Urine Creatinine Urine Chloride Urine Total Protein Crossmatch 02/24/20 02/24/20 02/24/20 05:33 05:55 05:55 WBC RBC 3.17 L Hgb 9.4 L Hct 28.2 L RDW 16.1 H Plt Count 96 L Lymph % (Auto) [place] # Seg Neutrophils % Seg Neuts % (Manual) Lymphocytes % (Manual) Monocytes % (Manual) Seg Neutrophils # Seg Neutrophils # Man Monocytes # (Manual) PT INR D-Dimer Heparin Anti-Xa Level ABG pH ABG pO2 ABG HCO3 ABG O2 Saturation ABG Base Excess ABG Hemoglobin Sodium 146 H Potassium Chloride 110.0 H Carbon Dioxide BUN 69 H Creatinine 2.6 H Glucose 119 H POC Glucose 156 H Lactic Acid Calcium 7.2 L Magnesium Ferritin AST ALT Lactate Dehydrogenase Total Creatine Kinase 362 H CK-MB (CK-2) Troponin T C-Reactive Protein NT-Pro-B Natriuret Pep Total Protein Albumin Triglycerides HDL Cholesterol Urine WBC (Auto) Urine Creatinine Urine Chloride Urine Total Protein Crossmatch 02/24/20 02/24/20 02/24/20 11:51 18:35 23:41 WBC RBC Hgb Hct RDW Plt Count Lymph % (Auto) [place] # Seg Neutrophils % Seg Neuts % (Manual) Lymphocytes % (Manual) Monocytes % (Manual) Seg Neutrophils # Seg Neutrophils # Man Monocytes # (Manual) PT INR D-Dimer Heparin Anti-Xa Level ABG pH ABG pO2 ABG HCO3 ABG O2 Saturation ABG Base Excess ABG Hemoglobin Sodium Potassium Chloride Carbon Dioxide BUN Creatinine Glucose POC Glucose 155 H 134 H 148 H Lactic Acid Calcium Magnesium Ferritin AST ALT Lactate Dehydrogenase Total Creatine Kinase CK-MB (CK-2) Troponin T C-Reactive Protein NT-Pro-B Natriuret Pep Total Protein Albumin Triglycerides HDL Cholesterol Urine WBC (Auto) Urine Creatinine Urine Chloride Urine Total Protein Crossmatch 02/25/20 02/25/20 05:11 10:39 WBC RBC Hgb 8.6 L Hct 25.6 L RDW Plt Count 79 L Lymph % (Auto) [place] # Seg Neutrophils % Seg Neuts % (Manual) Lymphocytes % (Manual) Monocytes % (Manual) Seg Neutrophils # Seg Neutrophils # Man Monocytes # (Manual) PT INR D-Dimer Heparin Anti-Xa Level ABG pH ABG pO2 ABG HCO3 ABG O2 Saturation ABG Base Excess ABG Hemoglobin Sodium Potassium Chloride 108.6 H Carbon Dioxide BUN 77 H Creatinine 2.9 H Glucose 121 H POC Glucose Lactic Acid Calcium 7.5 L Magnesium Ferritin AST ALT Lactate Dehydrogenase Total Creatine Kinase CK-MB (CK-2) Troponin T C-Reactive Protein NT-Pro-B Natriuret Pep Total Protein Albumin Triglycerides HDL Cholesterol Urine WBC (Auto) Urine Creatinine Urine Chloride Urine Total Protein Crossmatch Chest x-ray: image reviewed (Bibasilar opacity possible increased right pleural effusion)
[2020-02-25] MEDS: CEFEPIME/NS 2 GM/100 ML 2 GM/100 ML BAG IV SCH (11:33)
[2020-02-25] MEDS: ASPIRIN 81 MG TAB CHEW PO SCH (11:34)
[2020-02-25] MEDS: DOCUSATE SODIUM 100 MG/10 ML ORAL LIQD PO SCH ×2 (11:34→21:50)
[2020-02-25] MEDS: HEPARIN 5,000 UNIT/1 ML VIAL SUB-Q SCH ×2 (11:34→21:50)
[2020-02-25] MEDS: POTASSIUM CHLORIDE 20 MEQ PACKET FEEDTUBE SCH (11:35)
[2020-02-25] MEDS: ALBUMIN HUMAN 25% (25 GM/100 ML) INJ IV SCH ×2 (17:49→22:05)
[2020-02-26] MEDS: INSULIN REGULAR, HUMAN 100 UNIT/ML 3ML VIAL SUB-Q SCH ×5 (00:23→23:39)
[2020-02-26] MEDS: ALBUMIN HUMAN 25% (25 GM/100 ML) INJ IV SCH (03:09)
[2020-02-26] MEDS ORDERED: ALBUTEROL 2.5 MG/3 ML NEBU IH PRN (09:18)
--- NOTE | 2020-02-26 10:01 | Progress Note ---
Assessment and Plan Assessment and plan: --Sepsis; right pneumonia/HCAP Continue Vanco and cefepime , follow cultures, supportive care ID,Pulm following --Bilateral pneumonia As noted above. COVID markers elevated Ferritin 1191. Ddmer >10,000. CRP 18. LDH 381. Recent sputum cx with PMDR Proteus, MRSA. H flu. MRSA PCR positive. --elevated D-dimers More than 10,000, on heparin drip V/Q scan low probability for PE lower extremity venous Doppler,neg DVT dc heparin. --Rhabdomyolysis; Continue IV fluids, input output monitoring, CK levels trending down CK [id number] We will monitor renal function --COVID-19 test negative x2 during last admission Test negative during this admission 02/18/2020 However patient has very high levels of inflammatory markers ID consulted, trend the markers --Acute resp failure with hypoxia/extubated 02/19/2020 on nasal cannula oxygen, saturating well Very high ddimer suspect PE post COVID. --Acute kidney injury on chronic kidney disease Secondary to ATN, gentle hydration Avoid nephrotoxins, monitor renal function Nephrology following -- DVT prophylaxis SCD, Heparin ,renal dose PT OT, DC planning 02/24/2020. Patient extubated yesterday and tolerated nasal cannula. Patient's baseline creatinine appears to be 1.6-1.8 2014. Continue IV fluid hydration per nephrology recommendations. CK level was elevated. Therefore, etiology may be from acute kidney injury and rhabdomyolysis. Renal ultrasound revealed chronic medical renal disease and no hydronephrosis. Urine eosinophils negative. Awaiting placement. I discussed the case with case management. 02/25/2020. Patient currently with nasogastric tube and tube feedings at 45 cc an hour. Speech evaluation for swallowing. Patient currently with nasal cannula 3 L O2. Creatinine remains elevated. Recheck BMP. Continue free water flushes 200 ml q 4 hrs via NGT for hypernatremia. Urine eosinophils negative, calcul ated protein to cr ratio 1 g, monitor. Continue vancomycin and cefepime per ID recommendations. 02/26/2020. Speech therapy evaluation reports oropharyngeal dysphagia. Patient will likely need PEG tube placement. Attempted to call family any Marquez to discuss possible PEG placement, no answer. Patient with adequate urine output but creatinine still not improved significantly. Albumin 25% 100 mls q6H X 3 doses. Continue per nephrology recommendations. Antibiotics discontinued yesterday per ID recommendations. History Interval history: No new issues overnight Hospitalist Physical - Constitutional Vitals: Temp Pulse Resp BP Pulse Ox 98.8 F 90 20 140/71 100 02/26/20 08:18 02/26/20 08:18 02/26/20 08:18 02/26/20 08:18 02/26/20 08:23 General appearance: Present: mild distress, well-nourished, other (confused) - EENT Eyes: Present: PERRL, EOM intact ENT: hearing intact, clear oral mucosa, dentition normal - Neck Neck: Present: supple, normal ROM - Respiratory Respiratory effort: normal Respiratory: bilateral: CTA - Cardiovascular Rhythm: regular Heart Sounds: Present: S1 & S2. Absent: gallop, rub - Extremities Extremities: no ischemia, No edema, Full ROM - Abdominal General gastrointestinal: soft, non-tender, non-distended, normal bowel sounds - Integumentary Integumentary: Present: clear, warm, dry - Neurologic Neurologic: CNII-XII intact, moves all extremities HEART Score - HEART Score Troponin: Troponin T 0.573 ng/mL (0.00-0.029) H* D 02/20/20 17:20 Results - Labs CBC & Chem 7: 02/25/20 05:11 02/25/20 10:39 Labs: Laboratory Last Values WBC 4.8 K/mm3 (4.5-11.0) 02/24/20 05:55 RBC 3.17 M/mm3 (3.65-5.03) L 02/24/20 05:55 Hgb 8.6 gm/dl (11.8-15.2) L 02/25/20 05:11 Hct 25.6 % (35.5-45.6) L 02/25/20 05:11 MCV 89 fl (84-94) 02/24/20 05:55 MCH 30 pg (28-32) 02/24/20 05:55 MCHC 34 % (32-34) 02/24/20 05:55 RDW 16.1 % (13.2-15.2) H 02/24/20 05:55 Plt Count 79 K/mm3 (140-440) L 02/25/20 05:11 Lymph % (Auto) 10.5 % (13.4-35.0) L 02/19/20 04:00 Bullitt % (Auto) 6.8 % (0.0-7.3) 02/19/20 04:00 Eos % (Auto) 0.4 % (0.0-4.3) 02/19/20 04:00 Baso % (Auto) 0.2 % (0.0-1.8) 02/19/20 04:00 Lymph # 1.8 K/mm3 (1.2-5.4) 02/19/20 04:00 [place] # 1.2 K/mm3 (0.0-0.8) H 02/19/20 04:00 Eos # 0.1 K/mm3 (0.0-0.4) 02/19/20 04:00 Baso # 0.0 K/mm3 (0.0-0.1) 02/19/20 04:00 Add Manual Diff Complete 02/17/20 16:28 Total Counted 100 02/17/20 16:28 Seg Neutrophils % 82.1 % (40.0-70.0) H 02/19/20 04:00 Seg Neuts % (Manual) 84.0 % (40.0-70.0) H 02/17/20 16:28 Band Neutrophils % 0 % 02/17/20 16:28 Lymphocytes % (Manual) 8.0 % (13.4-35.0) L 02/17/20 16:28 Reactive Lymphs % (Man) 0 % 02/17/20 16:28 Monocytes % (Manual) 8.0 % (0.0-7.3) H 02/17/20 16:28 Eosinophils % (Manual) 0 % (0.0-4.3) 02/17/20 16:28 Basophils % (Manual) 0 % (0.0-1.8) 02/17/20 16:28 Metamyelocytes % 0 % 02/17/20 16:28 Myelocytes % 0 % 02/17/20 16:28 Promyelocytes % 0 % 02/17/20 16:28 Blast Cells % 0 % 02/17/20 16:28 Nucleated RBC % Not Reportable 02/17/20 16:28 Seg Neutrophils # 14.5 K/mm3 (1.8-7.7) H 02/19/20 04:00 Seg Neutrophils # Man 19.7 K/mm3 (1.8-7.7) H 02/17/20 16:28 Band Neutrophils # 0.0 K/mm3 02/17/20 16:28 Lymphocytes # (Manual) 1.9 K/mm3 (1.2-5.4) 02/17/20 16:28 Abs React Lymphs (Man) 0.0 K/mm3 02/17/20 16:28 Monocytes # (Manual) 1.9 K/mm3 (0.0-0.8) H 02/17/20 16:28 Eosinophils # (Manual) 0.0 K/mm3 (0.0-0.4) 02/17/20 16:28 Basophils # (Manual) 0.0 K/mm3 (0.0-0.1) 02/17/20 16:28 Metamyelocytes # 0.0 K/mm3 02/17/20 16:28 Myelocytes # 0.0 K/mm3 02/17/20 16:28 Promyelocytes # 0.0 K/mm3 02/17/20 16:28 Blast Cells # 0.0 K/mm3 02/17/20 16:28 WBC Morphology Not Reportable 02/17/20 16:28 Hypersegmented Neuts Not Reportable 02/17/20 16:28 Hyposegmented Neuts Not Reportable 02/17/20 16:28 Hypogranular Neuts Not Reportable 02/17/20 16:28 Smudge Cells Not Reportable 02/17/20 16:28 Toxic Granulation Not Reportable 02/17/20 16:28 Toxic Vacuolation Not Reportable 02/17/20 16:28 Dohle Bodies Not Reportable 02/17/20 16:28 Pelger-Huet Anomaly Not Reportable 02/17/20 16:28 Krys Rods Not Reportable 02/17/20 16:28 Platelet Estimate Not Reportable 02/17/20 16:28 Clumped Platelets Not Reportable 02/17/20 16:28 Plt Clumps, EDTA Not Reportable 02/17/20 16:28 Large Platelets Not Reportable 02/17/20 16:28 Giant Platelets Not Reportable 02/17/20 16:28 Platelet Satelliting Not Reportable 02/17/20 16:28 Plt Morphology Comment Not Reportable 02/17/20 16:28 RBC Morphology Normal 02/17/20 16:28 Dimorphic RBCs Not Reportable 02/17/20 16:28 Polychromasia Not Reportable 02/17/20 16:28 Hypochromasia Not Reportable 02/17/20 16:28 Poikilocytosis Not Reportable 02/17/20 16:28 Anisocytosis Not Reportable 02/17/20 16:28 Microcytosis Not Reportable 02/17/20 16:28 Macrocytosis Not Reportable 02/17/20 16:28 Spherocytes Not Reportable 02/17/20 16:28 Pappenheimer Bodies Not Reportable 02/17/20 16:28 Sickle Cells Not Reportable 02/17/20 16:28 Target Cells Not Reportable 02/17/20 16:28 Tear Drop Cells Not Reportable 02/17/20 16:28 Ovalocytes Not Reportable 02/17/20 16:28 Helmet Cells Not Reportable 02/17/20 16:28 [place] Bodies Not Reportable 02/17/20 16:28 [place] Rings Not Reportable 02/17/20 16:28 Addison Cells Not Reportable 02/17/20 16:28 Bite Cells Not Reportable 02/17/20 16:28 Crenated Cell Not Reportable 02/17/20 16:28 Elliptocytes Not Reportable 02/17/20 16:28 Acanthocytes (Spur) Not Reportable 02/17/20 16:28 Rouleaux Not Reportable 02/17/20 16:28 Hemoglobin C Crystals Not Reportable 02/17/20 16:28 Schistocytes Not Reportable 02/17/20 16:28 Malaria parasites Not Reportable 02/17/20 16:28 Keron Bodies Not Reportable 02/17/20 16:28 Hem Pathologist Commnt No 02/17/20 16:28 PT 18.6 Sec. (12.2-14.9) H 02/19/20 03:20 INR 1.53 (0.87-1.13) H 02/19/20 03:20 APTT 26.8 Sec. (24.2-36.6) 02/17/20 16:28 D-Dimer 1327.30 ng/mlDDU (0-234) H 02/20/20 17:20 Heparin Anti-Xa Level < 0.10 U.I./ml (0.3-0.7) L 02/21/20 15:41 ABG pH 7.355 pH Units (7.350-7.450) 02/19/20 05:08 ABG pCO2 27.3 mm Hg 02/19/20 05:08 ABG pO2 168.2 mm Hg (80.0-90.0) H 02/19/20 05:08 ABG HCO3 14.9 mmol/L (20.0-26.0) L 02/19/20 05:08 ABG O2 Saturation 99.0 % (95.0-99.0) 02/19/20 05:08 ABG O2 Content 11.7 (0.0-44) 02/19/20 05:08 ABG Base Excess -9.5 mmol/L (-2.0-3.0) L 02/19/20 05:08 ABG Hemoglobin 8.3 gm/dl (14.0-18.0) L 02/19/20 05:08 ABG Carboxyhemoglobin 1.2 % (0.0-5.0) 02/19/20 05:08 ABG Methemoglobin 0.7 % (0.0-1.5) 02/19/20 05:08 Oxyhemoglobin 97.2 % (95.0-99.0) 02/19/20 05:08 FiO2 40 % 02/19/20 05:08 Sodium 143 mmol/L (137-145) 02/25/20 10:39 Potassium 4.6 mmol/L (3.6-5.0) 02/25/20 10:39 Chloride 108.6 mmol/L (98-107) H 02/25/20 10:39 Carbon Dioxide 22 mmol/L (22-30) 02/25/20 10:39 Anion Gap 17 mmol/L 02/25/20 10:39 BUN 77 mg/dL (9-20) H 02/25/20 10:39 Creatinine 2.9 mg/dL (0.8-1.3) H 02/25/20 10:39 Estimated GFR 26 ml/min 02/25/20 10:39 BUN/Creatinine Ratio 27 % 02/25/20 10:39 Glucose 121 mg/dL (75-100) H 02/25/20 10:39 POC Glucose 111 (70-105) H 02/26/20 05:55 Lactic Acid 1.90 mmol/L (0.7-2.0) 02/17/20 22:56 Calcium 7.5 mg/dL (8.4-10.2) L 02/25/20 10:39 Magnesium 1.20 mg/dL (1.7-2.3) L 02/23/20 05:36 Ferritin 1191.0 ng/mL (30.0-300.0) H 02/17/20 16:28 Total Bilirubin 0.50 mg/dL (0.1-1.2) 02/17/20 16:28 AST 65 units/L (5-40) H 02/17/20 16:28 ALT 81 units/L (7-56) H 02/17/20 16:28 Alkaline Phosphatase 101 units/L (35-129) 02/17/20 16:28 Lactate Dehydrogenase 381 units/L (91-180) H 02/17/20 16:28 Total Creatine Kinase 362 units/L (55-170) H 02/24/20 05:55 CK-MB (CK-2) 78.0 ng/mL (0.0-4.0) H 02/18/20 10:10 CK-MB (CK-2) Rel Index 1.3 (0-4) 02/18/20 10:10 Troponin T 0.573 ng/mL (0.00-0.029) H* D 02/20/20 17:20 C-Reactive Protein 18.20 mg/dL (0.00-1.30) H 02/17/20 16:28 NT-Pro-B Natriuret Pep 1980 pg/mL (0-900) H 02/17/20 16:28 Total Protein 5.4 g/dL (6.3-8.2) L 02/17/20 16:28 Albumin 2.3 g/dL (3.9-5) L 02/17/20 16:28 Albumin/Globulin Ratio 0.7 % 02/17/20 16:28 Triglycerides 164 mg/dL (2-149) H 02/18/20 10:10 Cholesterol 133 mg/dL (50-199) 02/18/20 10:10 LDL Cholesterol Direct 71 mg/dL (50-130) 02/18/20 10:10 HDL Cholesterol 38 mg/dL (40-59) L 02/18/20 10:10 Cholesterol/HDL Ratio 3.50 % 02/18/20 10:10 Procalcitonin 6.74 ng/mL (<0.15) 02/17/20 16:28 TSH 3.490 mlU/mL (0.270-4.200) 02/17/20 16:28 Urine Color Yellow (Yellow) 02/17/20 Unknown Urine Turbidity Slightly-cloudy (Clear) 02/17/20 Unknown Urine pH 5.0 (5.0-7.0) 02/17/20 Unknown Ur Specific [place] 1.010 (1.003-1.030) 02/17/20 Unknown Urine Protein 30 mg/dl mg/dL (Negative) 02/17/20 Unknown Urine Glucose (UA) Neg mg/dL (Negative) 02/17/20 Unknown Urine Ketones Neg mg/dL (Negative) 02/17/20 Unknown Urine Blood Mod (Negative) 02/17/20 Unknown Urine Nitrite Neg (Negative) 02/17/20 Unknown Urine Bilirubin Neg (Negative) 02/17/20 Unknown Urine Urobilinogen < 2.0 mg/dL (<2.0) 02/17/20 Unknown Ur Leukocyte Esterase Mod (Negative) 02/17/20 Unknown Urine WBC (Auto) 17.0 /HPF (0.0-6.0) H 02/17/20 Unknown Urine RBC (Auto) 17.0 /HPF (0.0-6.0) 02/17/20 Unknown U Epithel Cells (Auto) 4.0 /HPF (0-13.0) 02/17/20 Unknown Urine Bacteria (Auto) 1+ /HPF (Negative) 02/17/20 Unknown Urine Yeast (Budding) 2+ /HPF 02/17/20 Unknown Urine Eosinophils None seen (None Seen) 02/18/20 17:40 Urine Creatinine 35.2 mg/dL (0.1-20.0) H 02/18/20 17:40 Urine Microalbumin 5.9 mg/dL (0.1-34.0) 02/18/20 17:40 Microalb/Creat Ratio 167.6 ug/mg 02/18/20 17:40 Urine Sodium 104 mmol/L 02/18/20 17:40 Urine Chloride 81.0 mmolL (110-250) L 02/18/20 17:40 Urine Total Protein 38 mg/dL (5-11.8) H 02/18/20 17:40 Nasal Screen MRSA (PCR) Positive (Negative) 02/18/20 17:40 Random Vancomycin 15.6 ug/mL (0-40.0) 02/23/20 05:36 Coronavirus (PCR) Negative (Negative) 02/23/20 09:59 Blood Type B NEGATIVE 02/21/20 10:47 Antibody Screen Negative 02/21/20 10:47 Crossmatch See Detail 02/21/20 10:47 - Diagnostic Impressions Diagnostic Impressions: Echocardiogram 02/19/20 15:05 Transthoracic Echocardiogram Indication: NSTEMI BP: 95/50 HR: 107 Conclusions *Global left ventricular systolic function is at the lower limits of normal. *The estimated ejection fraction is 45-50%. *Abnormal left ventricular diastolic filling is observed, consistent with impaired relaxation. *There is evidence of mild pulmonary hypertension. *There is no pericardial effusion. Findings Left Ventricle: The left ventricular chamber size is normal. Global left ventricular systolic function is at the lower limits of normal. The estimated ejection fraction is 45-50%. Abnormal left ventricular diastolic filling is observed, consistent with impaired relaxation. Left Atrium: The left atrial chamber size is normal. Right Ventricle: The right ventricular cavity size is normal. Right Atrium: The right atrial cavity size is normal. Aortic Valve: Mild aortic leaflet calcification is visualized. There is trace of aortic regurgitation. Mitral Valve: Mild mitral leaflet calcification is visualized. There is no evidence of mitral regurgitation. Tricuspid Valve: The tricuspid valve leaflets are normal. There is mild tricuspid regurgitation. The right ventricular systolic pressure is calculated at 40 mmHg. There is evidence of mild pulmonary hypertension. Pericardium: There is no pericardial effusion. Aorta: The aorta appears normal. Venous: The inferior vena cava appears normal. Measurements Chambers 2D Name Value Normal Range IVSd (2D) 1.09 cm (0.6 - 1.1) LVPWd (2D) 1 cm (0.6 - 1.1) LVIDd (2D) 3.55 cm (3.7 - 5.6) LVIDs (2D) 3 cm (2 - 3.8) LV FS (2D) 15.53 % - Ao root diameter (2D) 3.26 cm (2 - 3.7) Volumes/Mass Name Value Normal Range LA ESV SP 4CH (A/L) 17.3 ml - LA ESV SP 2CH (A/L) 18.3 ml - LA ESV BP (A/L) 19.14 ml - LA ESV BP (A/L) index 9.38 ml/m2 - LA ESV SP 4CH (MOD) 15.02 ml - LA ESV SP 2CH (MOD) 17.03 ml - LA ESV BP (MOD) 17.14 ml - LA ESV BP (MOD) index 8.4 ml/m2 - Diastolic/Systolic Function Name Value Normal Range MV E-wave Vmax 0.56 m/sec - MV deceleration time 197.94 msec - MV A-wave Vmax 1.36 m/sec - MV E:A ratio 0.41 ratio - Aortic Valve Name Value Normal Range AV Vmax 2.3 m/sec - AV VTI 33.77 cm - AV peak gradient 22.91 mmHg - AV mean gradient 12.27 mmHg - LVOT diameter 2.08 cm - LVOT Vmax 0.84 m/sec - LVOT VTI 14.82 cm - LVOT peak gradient 2.82 mmHg - LVOT mean gradient 2 mmHg - SV LVOT 50.44 ml - KALYAN (continuity Vmax) 1.24 cm2 - KALYAN (continuity VTI) 1.49 cm2 - AR PHT 460.84 msec - AR peak gradient 52.84 mmHg - Tricuspid Valve Name Value Normal Range TR Vmax 3.03 m/sec - TR peak gradient 37 mmHg - RAP 3 mmHg - RVSP 40 mmHg - Pulmonic Valve/Qp:Qs Name Value Normal Range PV acceleration time 106.57 msec - Yin/IV: Voiding Method Indwelling Catheter IV Catheter Type [Right Hand] INT / Saline Lock IV Catheter Type [Left Upper INT / Saline Lock arm] IV Catheter Type [Right Triple Lumen Cath Femoral] IV Catheter Type [Right INT / Saline Lock Antecubital] Active Medications - Current Medications Current Medications: Generic Name Dose Route Start Last Admin Trade Name Freq PRN Reason Stop Dose Admin Albuterol 2.5 mg 02/26/20 09:18 Proventil IH Q4HRT PRN Shortness Of Breath Albuterol/Ipratropium 1 ampul 02/26/20 14:00 Duoneb *Not For Prn Use* [facility] TIDRT [facility] Lipase/Protease/Amylase 1 each 02/21/20 12:12 Pancrecristiane Simon 10,500 Unit FEEDTUBE PRN PRN For Clogged Feeding Tube Aspirin 81 mg 02/18/20 10:00 02/25/20 11:34 Baby Aspirin PO 81 mg DAILY LOS Administration Atorvastatin Calcium 20 mg 02/18/20 22:00 02/25/20 21:50 Lipitor PO 20 mg QHS LOS Administration Dextrose 50 ml 02/18/20 12:55 D50w (25gm) Syringe IV Q30MIN PRN Hypoglycemia Protocol Docusate Sodium 100 mg 02/20/20 12:00 02/25/20 21:50 Colace PO 100 mg BID LOS Administration Heparin Sodium (Porcine) 5,000 unit 02/24/20 22:00 02/25/20 21:50 Heparin SUB-Q 5,000 unit Q12HR LOS Administration Hydrophilic Ointment 1 applic 02/17/20 15:12 Vaseline Lip Therapy TP Q2HR PRN Dry Lips Vasopressin 20 unit/ Sodium 101 mls @ 9.09 mls/hr 02/18/20 10:00 02/21/20 17:10 Chloride IV Infused TITR [facility] Titration Protocol 0.03 UNITS/MIN Insulin Human Regular 0 unit 02/18/20 13:00 02/26/20 06:17 Humulin R SUB-Q Not Given Q6HR [facility] Protocol Magnesium Hydroxide 30 ml 02/18/20 02:31 Milk Of Magnesia PO Q4H PRN Constipation Multi-Ingred Cream/Lotion/Oil/Oint 1 applic 02/17/20 15:12 02/19/20 04:25 Artificial Tears Ophth Oint OU 1 applic Q4HR PRN Administration Dry Eye(s) Simple Syrup 15 ml 02/21/20 12:12 Simple Syrup FEEDTUBE PRN PRN Hypoglycemia Simple Syrup 30 ml 02/21/20 12:12 Simple Syrup FEEDTUBE PRN PRN Hypoglycemia Sodium Bicarbonate 325 mg 02/21/20 12:12 Sodium Bicarbonate FEEDTUBE PRN PRN For Clogged Feeding Tube Sodium Chloride 10 ml 02/18/20 10:00 02/25/20 21:50 Sodium Chloride Flush Syringe 10 Ml IV 10 ml BID LOS Administration Sodium Chloride 10 ml 02/18/20 02:31 Sodium Chloride Flush Syringe 10 Ml IV PRN PRN LINE FLUSH Nutrition/Malnutrition Assess - Dietary Evaluation Nutrition/Malnutrition Findings: Nutrition Notes Start: 02/18/20 10:34 Freq: Status: Active Protocol: Document 02/23/20 13:11 AT (Rec: 02/23/20 14:[address] [facility]-[id number]) Co-Sign 02/23/20 13:11 LM Nutrition Notes Initial or Follow up Reassessment Current Diagnosis CKD(stage I-IV),Diabetes, Sepsis,Hypertension, Hyperlipidemia Other Pertinent Diagnosis UTI, Dementia Current Diet TF Labs/Tests K 3.0 BUN 53 Cr 2.3 Ca 7.0 Mg 1.2 Pertinent Medications Levophed Height 6 ft Weight 87.2 kg [place] Body Weight (kg) 80.90 BMI 26.0 Weight Status Overweight Subjective/Other Information Follow-up on TF and Bello administration. Pt is at goal rate of 45 mL/hr; flush 200 mL q4hr. Nurse reports that pt is tolerating TF well; pt has a soft abdomen and does not have N/V. Nurse has not seen Bello and thus has not administered the supplement. Provided Bello to RN. Pt was extubated. Percent of energy/protein needs met: 98%/100% Burn Absent Trauma Absent GI Symptoms None Current % PO Negligible Minimum of two criteria No physical signs of malnutrition #2 Nutrition Diagnosis Increased nutrient needs ( specify in comment below) Comments: protein Diagnosis Progress(for reassessment Continues documentation) #1 Nutrition Diagnosis Inadequate oral intake Diagnosis Progress(for reassessment Continues documentation) Is patient on ventilator? No Is Patient Ambulatory and/or Out of Bed No REE-([facility]-confined to bed) 1979.156 Calculation Used for Recommendations [facility] Additional Notes PRO needs: 69 - 130 g (0.8 - 1 .5 g/kg) Fluid needs: 1 mL/kcal Nutrition Intervention Change Diet Order: Continue TF Nutrition Support: Nepro at 45ml/hr Flush at 200ml q4hr Kcal 1,944 Protein (gm) 87 Fluid (mL) 785 % RDI: 100 Add Supplement/Snack (indicate name/kcal Bello BID /protein ) Provides kCal: 190 Provides Protein (gm) 5 Goal #1 TF tolerance Goal #2 Meet 80% of energy and protein needs via TF. Goal #3 Pt will receive Bello BID Anticipated Discharge Needs: Unable to determine at this time. Follow-Up By: 02/29/20 Additional Comments Follow up for continued tolerance of TF and Bello administration.
--- NOTE | 2020-02-26 10:51 | Progress Note ---
Assessment and Plan Acute Kidney Injury 2/2 ischemic ATN from septic shock, Rhabdo, on underlying CKD, no obstruction Hypernatremia Acute hypoxic respiratory failure Septic Shock 2/2 PNA Bilateral PNA Elevated D-Dimers Plan: - Cr slightly worse, making good urine. s/p albumin 25% 100 mls q6H X 3 doses. - Na 146, start D5W at 50 cc/hour for 1 day - Urine Cr was low so likely has ATN - Dced KCL yesterday - Review of labs in 2014 in [facility] did show SCr level between 1.6-1.8, most recent SCr level in [facility] prior to this admission was 2.2 on 02/14/20 - S/p Bicarb drip - CK level was elevated so could have AMMY from contribution from Rhabdo as well - Off pressors - No hydronephrosis noted on Renal US - Continue free water flushes 200 ml q 4 hrs via NGT for hypernatremia - Monitor Ck level - Urine eosinophils negative, calculated protein to cr ratio 1 g, monitor - Renally dose meds Subjective Date of service: 02/26/20 Principal diagnosis: Septic Shock Interval history: Making urine. Objective - Exam Narrative Exam: General appearance: other EENT: ATNC Neck: no JVD Respiratory: Present: Decreased Breath Sounds Cardiology: regular, S1S2 Gastrointestinal: normoactive bowel sounds (nasogastric tube in place) Neurologic: other (pt doesn't follow commands) Musculoskeletal: other (trace edema to BLE) - Vital Signs Vital signs: Vital Signs - 12hr 02/25/20 02/26/20 02/26/20 23:20 03:43 04:39 Temperature 98.0 F 98.0 F Pulse Rate 99 H 67 91 H Respiratory 18 20 Rate Blood Pressure 99/61 118/57 O2 Sat by Pulse 100 100 Oximetry 02/26/20 02/26/20 08:18 08:23 Temperature 98.8 F Pulse Rate 90 Respiratory 20 Rate Blood Pressure 140/71 O2 Sat by Pulse 100 100 Oximetry - Lab 02/25/20 05:11 02/26/20 13:02 Most recent lab results ABG pH 7.355 pH Units (7.350-7.450) 02/19/20 05:08 ABG pCO2 27.3 mm Hg 02/19/20 05:08 ABG pO2 168.2 mm Hg (80.0-90.0) H 02/19/20 05:08 ABG HCO3 14.9 mmol/L (20.0-26.0) L 02/19/20 05:08 ABG O2 Saturation 99.0 % (95.0-99.0) 02/19/20 05:08 Calcium 7.5 mg/dL (8.4-10.2) L 02/25/20 10:39 Magnesium 1.20 mg/dL (1.7-2.3) L 02/23/20 05:36 Urine Creatinine 35.2 mg/dL (0.1-20.0) H 02/18/20 17:40 Urine Sodium 104 mmol/L 02/18/20 17:40 Urine Total Protein 38 mg/dL (5-11.8) H 02/18/20 17:40 Medications & Allergies - Medications Allergies/Adverse Reactions: Allergies No Known Allergies Allergy (Unverified 05/01/15 23:41) Home Medications: Home Medications Medication Instructions Recorded Confirmed Last Taken Type Acetaminophen [Acetaminophen TAB] 650 mg PO Q8H PRN 05/02/15 02/18/20 Unknown History Albuterol Sulfate [Albuterol 0.63% 0.63 mg IH Q6H PRN 05/02/15 02/18/20 Unknown History NEBS] Aspirin [Aspirin BABY CHEW TAB] 81 mg PO DAILY 05/02/15 02/18/20 05/01/15 History AtorvaSTATin [Lipitor] 20 mg PO QHS 05/02/15 02/18/20 05/01/15 History Docusate Sodium [Colace CAP] 100 mg PO BID 05/02/15 02/18/20 05/02/15 History Insulin Lispro [HumaLOG VIAL] See Protocol SUB-Q ACHS 05/02/15 02/18/20 05/01/15 History amLODIPine 5 mg PO DAILY 05/02/15 02/18/20 05/01/15 History Active Medications: Generic Name Dose Route Start Last Admin Trade Name Freq PRN Reason Stop Dose Admin Albuterol 2.5 mg 02/26/20 09:18 Proventil IH Q4HRT PRN Shortness Of Breath Albuterol/Ipratropium 1 ampul 02/26/20 14:00 Duoneb *Not For Prn Use* IH TIDRT LOS Lipase/Protease/Amylase 1 each 02/21/20 12:12 Pancreaze 10,500 Unit FEEDTUBE PRN PRN For Clogged Feeding Tube Aspirin 81 mg 02/18/20 10:00 02/25/20 11:34 Baby Aspirin PO 81 mg DAILY LOS Administration Atorvastatin Calcium 20 mg 02/18/20 22:00 02/25/20 21:50 Lipitor PO 20 mg QHS LOS Administration Dextrose 50 ml 02/18/20 12:55 D50w (25gm) Syringe IV Q30MIN PRN Hypoglycemia Protocol Docusate Sodium 100 mg 02/20/20 12:00 02/25/20 21:50 Colace PO 100 mg BID LOS Administration Heparin Sodium (Porcine) 5,000 unit 02/24/20 22:00 02/25/20 21:50 Heparin SUB-Q 5,000 unit Q12HR LOS Administration Hydrophilic Ointment 1 applic 02/17/20 15:12 Vaseline Lip Therapy TP Q2HR PRN Dry Lips Vasopressin 20 unit/ Sodium 101 mls @ 9.09 mls/hr 02/18/20 10:00 02/21/20 17:10 Chloride IV Infused TITR [facility] Titration Protocol 0.03 UNITS/MIN Insulin Human Regular 0 unit 02/18/20 13:00 02/26/20 06:17 Humulin R SUB-Q Not Given Q6HR [facility] Protocol Magnesium Hydroxide 30 ml 02/18/20 02:31 Milk Of Magnesia PO Q4H PRN Constipation Multi-Ingred Cream/Lotion/Oil/Oint 1 applic 02/17/20 15:12 02/19/20 04:25 Artificial Tears Ophth Oint OU 1 applic Q4HR PRN Administration Dry Eye(s) Simple Syrup 15 ml 02/21/20 12:12 Simple Syrup FEEDTUBE PRN PRN Hypoglycemia Simple Syrup 30 ml 02/21/20 12:12 Simple Syrup FEEDTUBE PRN PRN Hypoglycemia Sodium Bicarbonate 325 mg 02/21/20 12:12 Sodium Bicarbonate FEEDTUBE PRN PRN For Clogged Feeding Tube Sodium Chloride 10 ml 02/18/20 10:00 02/25/20 21:50 Sodium Chloride Flush Syringe 10 Ml IV 10 ml BID LOS Administration Sodium Chloride 10 ml 02/18/20 02:31 Sodium Chloride Flush Syringe 10 Ml IV PRN PRN LINE FLUSH
[2020-02-26] MEDS: DOCUSATE SODIUM 100 MG/10 ML ORAL LIQD PO SCH ×2 (11:40→22:48)
[2020-02-26] MEDS: ASPIRIN 81 MG TAB CHEW PO SCH (12:02)
[2020-02-26] MEDS: HEPARIN 5,000 UNIT/1 ML VIAL SUB-Q SCH ×2 (12:03→22:47)
--- NOTE | 2020-02-26 12:32 | Progress Note ---
Assessment and Plan ssessment and Plan 74 y/o male with known dementia, mumbles very few words at baseline if any, blank stares, admitted with altered mental status, respiratory failure, worsening renal failure and sepsis with shock. Poor airway clearance with retained secretions bibasilar opacities on cxr suggestive of pleural e ffusion/infiltrate/atelectasis 1. Pulm-extubated on nasal cannula. Ordered NT suction qshift. Will continue 2. CV- stable now 3. Renal- CK dropping but appears Cr and BUN getting worse. Await renal recs for today. 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 Not for COVID 4. Follow-up chest x-ray on Thursday. Subjective Date of service: 02/26/20 Principal diagnosis: Septic Shock Interval history: Awake and responsive has cough, remains on oxygen. Objective Vital Signs - 12hr 02/26/20 02/26/20 02/26/20 03:43 04:39 08:18 Temperature 98.0 F 98.8 F Pulse Rate 67 91 H 90 Respiratory 20 20 Rate Blood Pressure 118/57 140/71 O2 Sat by Pulse 100 100 Oximetry 02/26/20 08:23 Temperature Pulse Rate Respiratory Rate Blood Pressure O2 Sat by Pulse 100 Oximetry Constitutional: alert ENT: other (orally intubated critically ill on vent) Neck: supple Effort: mildly labored Ascultation: Bilateral: clear, diminished breath sounds, rhonchi (Bilateral upper airway noises) Percussion: Bilateral: not dull Cardiovascular: other (sinus tachycardia) Neurologic: unable to assess CBC and BMP: 02/25/20 05:11 02/25/20 10:39 ABG, PT/INR, D-dimer: ABG ABG pH 7.355 pH Units (7.350-7.450) 02/19/20 05:08 ABG pCO2 27.3 mm Hg 02/19/20 05:08 ABG pO2 168.2 mm Hg (80.0-90.0) H 02/19/20 05:08 ABG O2 Saturation 99.0 % (95.0-99.0) 02/19/20 05:08 PT/INR, D-dimer PT 18.6 Sec. (12.2-14.9) H 02/19/20 03:20 INR 1.53 (0.87-1.13) H 02/19/20 03:20 D-Dimer 1327.30 ng/mlDDU (0-234) H 02/20/20 17:20 Abnormal lab findings: Abnormal Labs 02/17/20 02/17/20 02/17/20 16:28 16:28 16:28 WBC 23.5 H RBC 3.07 L Hgb 9.1 L Hct 28.4 L RDW 16.8 H Plt Count Lymph % (Auto) Henry # Seg Neutrophils % Seg Neuts % (Manual) 84.0 H Lymphocytes % (Manual) 8.0 L Monocytes % (Manual) 8.0 H Seg Neutrophils # Seg Neutrophils # Man 19.7 H Monocytes # (Manual) 1.9 H PT 15.3 H INR 1.19 H D-Dimer Heparin Anti-Xa Level ABG pH ABG pO2 ABG HCO3 ABG O2 Saturation ABG Base Excess ABG Hemoglobin Sodium 136 L Potassium 5.4 H Chloride Carbon Dioxide 15 L BUN 91 H Creatinine 3.7 H D Glucose 120 H POC Glucose Lactic Acid Calcium 7.9 L Magnesium Ferritin AST 65 H ALT 81 H Lactate Dehydrogenase Total Creatine Kinase CK-MB (CK-2) Troponin T C-Reactive Protein NT-Pro-B Natriuret Pep Total Protein 5.4 L Albumin 2.3 L Triglycerides HDL Cholesterol Urine WBC (Auto) Urine Creatinine Urine Chloride Urine Total Protein Crossmatch 02/17/20 02/17/20 02/17/20 16:28 16:28 16:28 WBC RBC Hgb Hct RDW Plt Count Lymph % (Auto) Henry # Seg Neutrophils % Seg Neuts % (Manual) Lymphocytes % (Manual) Monocytes % (Manual) Seg Neutrophils # Seg Neutrophils # Man Monocytes # (Manual) PT INR D-Dimer > 07236 H Heparin Anti-Xa Level ABG pH ABG pO2 ABG HCO3 ABG O2 Saturation ABG Base Excess ABG Hemoglobin Sodium Potassium Chloride Carbon Dioxide BUN Creatinine Glucose POC Glucose Lactic Acid 2.70 H* Calcium Magnesium Ferritin AST ALT Lactate Dehydrogenase Total Creatine Kinase CK-MB (CK-2) Troponin T 0.748 H* C-Reactive Protein NT-Pro-B Natriuret Pep 1980 H Total Protein Albumin Triglycerides HDL Cholesterol Urine WBC (Auto) Urine Creatinine Urine Chloride Urine Total Protein Crossmatch 02/17/20 02/17/20 02/17/20 16:28 16:28 18:35 WBC RBC Hgb Hct RDW Plt Count Lymph % (Auto) Henry # Seg Neutrophils % Seg Neuts % (Manual) Lymphocytes % (Manual) Monocytes % (Manual) Seg Neutrophils # Seg Neutrophils # Man Monocytes # (Manual) PT INR D-Dimer Heparin Anti-Xa Level ABG pH 7.303 L ABG pO2 327.3 H ABG HCO3 12.5 L ABG O2 Saturation 99.5 H ABG Base Excess -12.3 L ABG Hemoglobin 11.2 L Sodium Potassium Chloride Carbon Dioxide BUN Creatinine Glucose POC Glucose Lactic Acid Calcium Magnesium Ferritin 1191.0 H AST ALT Lactate Dehydrogenase 381 H Total Creatine Kinase CK-MB (CK-2) Troponin T C-Reactive Protein 18.20 H NT-Pro-B Natriuret Pep Total Protein Albumin Triglycerides HDL Cholesterol Urine WBC (Auto) Urine Creatinine Urine Chloride Urine Total Protein Crossmatch 02/17/20 02/18/20 02/18/20 Unknown 05:20 10:10 WBC RBC Hgb Hct RDW Plt Count Lymph % (Auto) Henry # Seg Neutrophils % Seg Neuts % (Manual) Lymphocytes % (Manual) Monocytes % (Manual) Seg Neutrophils # Seg Neutrophils # Man Monocytes # (Manual) PT INR D-Dimer Heparin Anti-Xa Level ABG pH 7.217 L ABG pO2 165.7 H ABG HCO3 10.5 L ABG O2 Saturation ABG Base Excess -15.7 L ABG Hemoglobin 10.3 L Sodium Potassium Chloride Carbon Dioxide BUN Creatinine Glucose POC Glucose Lactic Acid Calcium Magnesium Ferritin AST ALT Lactate Dehydrogenase Total Creatine Kinase 5660 H CK-MB (CK-2) 78.0 H Troponin T 1.030 H* D C-Reactive Protein NT-Pro-B Natriuret Pep Total Protein Albumin Triglycerides 164 H HDL Cholesterol 38 L Urine WBC (Auto) 17.0 H Urine Creatinine Urine Chloride Urine Total Protein Crossmatch 02/18/20 02/18/20 02/18/20 12:14 17:32 17:40 WBC RBC Hgb Hct RDW Plt Count Lymph % (Auto) Henry # Seg Neutrophils % Seg Neuts % (Manual) Lymphocytes % (Manual) Monocytes % (Manual) Seg Neutrophils # Seg Neutrophils # Man Monocytes # (Manual) PT INR D-Dimer Heparin Anti-Xa Level ABG pH ABG pO2 ABG HCO3 ABG O2 Saturation ABG Base Excess ABG Hemoglobin Sodium Potassium Chloride Carbon Dioxide BUN Creatinine Glucose POC Glucose 193 H 191 H Lactic Acid Calcium Magnesium Ferritin AST ALT Lactate Dehydrogenase Total Creatine Kinase CK-MB (CK-2) Troponin T C-Reactive Protein NT-Pro-B Natriuret Pep Total Protein Albumin Triglycerides HDL Cholesterol Urine WBC (Auto) Urine Creatinine 35.2 H Urine Chloride 81.0 L Urine Total Protein 38 H Crossmatch 02/18/20 02/19/20 02/19/20 17:40 00:04 01:50 WBC RBC Hgb Hct RDW Plt Count Lymph % (Auto) Henry # Seg Neutrophils % Seg Neuts % (Manual) Lymphocytes % (Manual) Monocytes % (Manual) Seg Neutrophils # Seg Neutrophils # Man Monocytes # (Manual) PT INR D-Dimer Heparin Anti-Xa Level 0.18 L ABG pH ABG pO2 ABG HCO3 ABG O2 Saturation ABG Base Excess ABG Hemoglobin Sodium Potassium Chloride 111.4 H Carbon Dioxide 11 L BUN 77 H Creatinine 2.8 H Glucose 168 H POC Glucose 145 H Lactic Acid Calcium 7.2 L Magnesium Ferritin AST ALT Lactate Dehydrogenase Total Creatine Kinase CK-MB (CK-2) Troponin T C-Reactive Protein NT-Pro-B Natriuret Pep Total Protein Albumin Triglycerides HDL Cholesterol Urine WBC (Auto) Urine Creatinine Urine Chloride Urine Total Protein Crossmatch 02/19/20 02/19/20 02/19/20 03:20 04:00 05:08 WBC 17.6 H RBC 2.76 L Hgb 8.1 L Hct 25.0 L RDW 16.6 H Plt Count Lymph % (Auto) 10.5 L Henry # 1.2 H Seg Neutrophils % 82.1 H Seg Neuts % (Manual) Lymphocytes % (Manual) Monocytes % (Manual) Seg Neutrophils # 14.5 H Seg Neutrophils # Man Monocytes # (Manual) PT 18.6 H INR 1.53 H D-Dimer Heparin Anti-Xa Level ABG pH ABG pO2 168.2 H ABG HCO3 14.9 L ABG O2 Saturation ABG Base Excess -9.5 L ABG Hemoglobin 8.3 L Sodium Potassium Chloride Carbon Dioxide BUN Creatinine Glucose POC Glucose Lactic Acid Calcium Magnesium Ferritin AST ALT Lactate Dehydrogenase Total Creatine Kinase CK-MB (CK-2) Troponin T C-Reactive Protein NT-Pro-B Natriuret Pep Total Protein Albumin Triglycerides HDL Cholesterol Urine WBC (Auto) Urine Creatinine Urine Chloride Urine Total Protein Crossmatch 02/19/20 02/19/20 02/19/20 05:38 05:50 09:10 WBC RBC Hgb Hct RDW Plt Count Lymph % (Auto) Henry # Seg Neutrophils % Seg Neuts % (Manual) Lymphocytes % (Manual) Monocytes % (Manual) Seg Neutrophils # Seg Neutrophils # Man Monocytes # (Manual) PT INR D-Dimer Heparin Anti-Xa Level ABG pH ABG pO2 ABG HCO3 ABG O2 Saturation ABG Base Excess ABG Hemoglobin Sodium Potassium Chloride 111.6 H 111.9 H Carbon Dioxide 14 L 15 L BUN 69 H 68 H Creatinine 2.6 H 2.5 H Glucose 151 H 154 H POC Glucose 143 H Lactic Acid Calcium 7.4 L 7.2 L Magnesium Ferritin AST ALT Lactate Dehydrogenase Total Creatine Kinase 3552 H CK-MB (CK-2) Troponin T C-Reactive Protein NT-Pro-B Natriuret Pep Total Protein Albumin Triglycerides HDL Cholesterol Urine WBC (Auto) Urine Creatinine Urine Chloride Urine Total Protein Crossmatch 02/19/20 02/19/20 02/19/20 11:41 12:00 17:46 WBC RBC Hgb Hct RDW Plt Count Lymph % (Auto) Henry # Seg Neutrophils % Seg Neuts % (Manual) Lymphocytes % (Manual) Monocytes % (Manual) Seg Neutrophils # Seg Neutrophils # Man Monocytes # (Manual) PT INR D-Dimer Heparin Anti-Xa Level 0.11 L ABG pH ABG pO2 ABG HCO3 ABG O2 Saturation ABG Base Excess ABG Hemoglobin Sodium Potassium Chloride Carbon Dioxide BUN Creatinine Glucose POC Glucose 160 H 133 H Lactic Acid Calcium Magnesium Ferritin AST ALT Lactate Dehydrogenase Total Creatine Kinase CK-MB (CK-2) Troponin T C-Reactive Protein NT-Pro-B Natriuret Pep Total Protein Albumin Triglycerides HDL Cholesterol Urine WBC (Auto) Urine Creatinine Urine Chloride Urine Total Protein Crossmatch 02/19/20 02/19/20 02/20/20 20:02 23:50 04:44 WBC RBC 2.64 L Hgb 7.9 L Hct 24.1 L RDW 16.3 H Plt Count 137 L Lymph % (Auto) Henry # Seg Neutrophils % Seg Neuts % (Manual) Lymphocytes % (Manual) Monocytes % (Manual) Seg Neutrophils # Seg Neutrophils # Man Monocytes # (Manual) PT INR D-Dimer Heparin Anti-Xa Level 0.12 L ABG pH ABG pO2 ABG HCO3 ABG O2 Saturation ABG Base Excess ABG Hemoglobin Sodium Potassium Chloride Carbon Dioxide BUN Creatinine Glucose POC Glucose 128 H Lactic Acid Calcium Magnesium Ferritin AST ALT Lactate Dehydrogenase Total Creatine Kinase CK-MB (CK-2) Troponin T C-Reactive Protein NT-Pro-B Natriuret Pep Total Protein Albumin Triglycerides HDL Cholesterol Urine WBC (Auto) Urine Creatinine Urine Chloride Urine Total Protein Crossmatch 02/20/20 02/20/20 02/20/20 04:44 04:44 10:00 WBC RBC Hgb Hct RDW Plt Count Lymph % (Auto) Henry # Seg Neutrophils % Seg Neuts % (Manual) Lymphocytes % (Manual) Monocytes % (Manual) Seg Neutrophils # Seg Neutrophils # Man Monocytes # (Manual) PT INR D-Dimer Heparin Anti-Xa Level 0.15 L < 0.10 L ABG pH ABG pO2 ABG HCO3 ABG O2 Saturation ABG Base Excess ABG Hemoglobin Sodium Potassium Chloride 110.4 H Carbon Dioxide 19 L BUN 61 H Creatinine 2.4 H Glucose POC Glucose Lactic Acid Calcium 7.3 L Magnesium Ferritin AST ALT Lactate Dehydrogenase Total Creatine Kinase 2238 H CK-MB (CK-2) Troponin T C-Reactive Protein NT-Pro-B Natriuret Pep Total Protein Albumin Triglycerides HDL Cholesterol Urine WBC (Auto) Urine Creatinine Urine Chloride Urine Total Protein Crossmatch 02/20/20 02/20/20 02/20/20 12:58 17:20 17:20 WBC RBC Hgb Hct RDW Plt Count Lymph % (Auto) Henry # Seg Neutrophils % Seg Neuts % (Manual) Lymphocytes % (Manual) Monocytes % (Manual) Seg Neutrophils # Seg Neutrophils # Man Monocytes # (Manual) PT INR D-Dimer 1327.30 H Heparin Anti-Xa Level 0.17 L ABG pH ABG pO2 ABG HCO3 ABG O2 Saturation ABG Base Excess ABG Hemoglobin Sodium Potassium Chloride Carbon Dioxide BUN Creatinine Glucose POC Glucose 123 H Lactic Acid Calcium Magnesium Ferritin AST ALT Lactate Dehydrogenase Total Creatine Kinase CK-MB (CK-2) Troponin T C-Reactive Protein NT-Pro-B Natriuret Pep Total Protein Albumin Triglycerides HDL Cholesterol Urine WBC (Auto) Urine Creatinine Urine Chloride Urine Total Protein Crossmatch 02/20/20 02/20/20 02/20/20 17:20 18:11 23:52 WBC RBC Hgb Hct RDW Plt Count Lymph % (Auto) Henry # Seg Neutrophils % Seg Neuts % (Manual) Lymphocytes % (Manual) Monocytes % (Manual) Seg Neutrophils # Seg Neutrophils # Man Monocytes # (Manual) PT INR D-Dimer Heparin Anti-Xa Level ABG pH ABG pO2 ABG HCO3 ABG O2 Saturation ABG Base Excess ABG Hemoglobin Sodium Potassium Chloride Carbon Dioxide BUN Creatinine Glucose POC Glucose 156 H 153 H Lactic Acid Calcium Magnesium Ferritin AST ALT Lactate Dehydrogenase Total Creatine Kinase CK-MB (CK-2) Troponin T 0.573 H* D C-Reactive Protein NT-Pro-B Natriuret Pep Total Protein Albumin Triglycerides HDL Cholesterol Urine WBC (Auto) Urine Creatinine Urine Chloride Urine Total Protein Crossmatch 02/21/20 02/21/20 02/21/20 04:39 04:39 05:12 WBC RBC 2.35 L Hgb 6.9 L Hct 21.1 L RDW 16.2 H Plt Count 126 L Lymph % (Auto) Henry # Seg Neutrophils % Seg Neuts % (Manual) Lymphocytes % (Manual) Monocytes % (Manual) Seg Neutrophils # Seg Neutrophils # Man Monocytes # (Manual) PT INR D-Dimer Heparin Anti-Xa Level ABG pH ABG pO2 ABG HCO3 ABG O2 Saturation ABG Base Excess ABG Hemoglobin Sodium Potassium Chloride Carbon Dioxide BUN 54 H Creatinine 2.2 H Glucose 120 H POC Glucose 139 H Lactic Acid Calcium 6.8 L Magnesium Ferritin AST ALT Lactate Dehydrogenase Total Creatine Kinase 1488 H CK-MB (CK-2) Troponin T C-Reactive Protein NT-Pro-B Natriuret Pep Total Protein Albumin Triglycerides HDL Cholesterol Urine WBC (Auto) Urine Creatinine Urine Chloride Urine Total Protein Crossmatch 02/21/20 02/21/20 02/21/20 10:47 13:24 15:41 WBC RBC Hgb Hct RDW Plt Count Lymph % (Auto) Henry # Seg Neutrophils % Seg Neuts % (Manual) Lymphocytes % (Manual) Monocytes % (Manual) Seg Neutrophils # Seg Neutrophils # Man Monocytes # (Manual) PT INR D-Dimer Heparin Anti-Xa Level < 0.10 L ABG pH ABG pO2 ABG HCO3 ABG O2 Saturation ABG Base Excess ABG Hemoglobin Sodium Potassium Chloride Carbon Dioxide BUN Creatinine Glucose POC Glucose 107 H Lactic Acid Calcium Magnesium Ferritin AST ALT Lactate Dehydrogenase Total Creatine Kinase CK-MB (CK-2) Troponin T C-Reactive Protein NT-Pro-B Natriuret Pep Total Protein Albumin Triglycerides HDL Cholesterol Urine WBC (Auto) Urine Creatinine Urine Chloride Urine Total Protein Crossmatch See Detail 02/22/20 02/22/20 02/22/20 05:13 05:13 12:24 WBC RBC 3.18 L Hgb 9.5 L Hct 27.6 L D RDW 15.9 H Plt Count 114 L Lymph % (Auto) Henry # Seg Neutrophils % Seg Neuts % (Manual) Lymphocytes % (Manual) Monocytes % (Manual) Seg Neutrophils # Seg Neutrophils # Man Monocytes # (Manual) PT INR D-Dimer Heparin Anti-Xa Level ABG pH ABG pO2 ABG HCO3 ABG O2 Saturation ABG Base Excess ABG Hemoglobin Sodium Potassium Chloride Carbon Dioxide BUN 52 H Creatinine 2.3 H Glucose 103 H POC Glucose 122 H Lactic Acid Calcium 6.7 L Magnesium Ferritin AST ALT Lactate Dehydrogenase Total Creatine Kinase 865 H CK-MB (CK-2) Troponin T C-Reactive Protein NT-Pro-B Natriuret Pep Total Protein Albumin Triglycerides HDL Cholesterol Urine WBC (Auto) Urine Creatinine Urine Chloride Urine Total Protein Crossmatch 02/22/20 02/23/20 02/23/20 17:17 05:27 05:36 WBC RBC 3.15 L Hgb 9.4 L Hct 27.6 L RDW 15.9 H Plt Count 97 L Lymph % (Auto) Henry # Seg Neutrophils % Seg Neuts % (Manual) Lymphocytes % (Manual) Monocytes % (Manual) Seg Neutrophils # Seg Neutrophils # Man Monocytes # (Manual) PT INR D-Dimer Heparin Anti-Xa Level ABG pH ABG pO2 ABG HCO3 ABG O2 Saturation ABG Base Excess ABG Hemoglobin Sodium Potassium Chloride Carbon Dioxide BUN Creatinine Glucose POC Glucose 165 H 120 H Lactic Acid Calcium Magnesium Ferritin AST ALT Lactate Dehydrogenase Total Creatine Kinase CK-MB (CK-2) Troponin T C-Reactive Protein NT-Pro-B Natriuret Pep Total Protein Albumin Triglycerides HDL Cholesterol Urine WBC (Auto) Urine Creatinine Urine Chloride Urine Total Protein Crossmatch 02/23/20 02/23/20 02/23/20 05:36 05:36 11:57 WBC RBC Hgb Hct RDW Plt Count Lymph % (Auto) Henry # Seg Neutrophils % Seg Neuts % (Manual) Lymphocytes % (Manual) Monocytes % (Manual) Seg Neutrophils # Seg Neutrophils # Man Monocytes # (Manual) PT INR D-Dimer Heparin Anti-Xa Level ABG pH ABG pO2 ABG HCO3 ABG O2 Saturation ABG Base Excess ABG Hemoglobin Sodium Potassium 3.0 L D Chloride Carbon Dioxide BUN 53 H Creatinine 2.3 H Glucose 115 H POC Glucose 162 H Lactic Acid Calcium 7.0 L Magnesium 1.20 L Ferritin AST ALT Lactate Dehydrogenase Total Creatine Kinase 476 H CK-MB (CK-2) Troponin T C-Reactive Protein NT-Pro-B Natriuret Pep Total Protein Albumin Triglycerides HDL Cholesterol Urine WBC (Auto) Urine Creatinine Urine Chloride Urine Total Protein Crossmatch 02/24/20 02/24/20 02/24/20 05:33 05:55 05:55 WBC RBC 3.17 L Hgb 9.4 L Hct 28.2 L RDW 16.1 H Plt Count 96 L Lymph % (Auto) Henry # Seg Neutrophils % Seg Neuts % (Manual) Lymphocytes % (Manual) Monocytes % (Manual) Seg Neutrophils # Seg Neutrophils # Man Monocytes # (Manual) PT INR D-Dimer Heparin Anti-Xa Level ABG pH ABG pO2 ABG HCO3 ABG O2 Saturation ABG Base Excess ABG Hemoglobin Sodium 146 H Potassium Chloride 110.0 H Carbon Dioxide BUN 69 H Creatinine 2.6 H Glucose 119 H POC Glucose 156 H Lactic Acid Calcium 7.2 L Magnesium Ferritin AST ALT Lactate Dehydrogenase Total Creatine Kinase 362 H CK-MB (CK-2) Troponin T C-Reactive Protein NT-Pro-B Natriuret Pep Total Protein Albumin Triglycerides HDL Cholesterol Urine WBC (Auto) Urine Creatinine Urine Chloride Urine Total Protein Crossmatch 02/24/20 02/24/20 02/24/20 11:51 18:35 23:41 WBC RBC Hgb Hct RDW Plt Count Lymph % (Auto) Henry # Seg Neutrophils % Seg Neuts % (Manual) Lymphocytes % (Manual) Monocytes % (Manual) Seg Neutrophils # Seg Neutrophils # Man Monocytes # (Manual) PT INR D-Dimer Heparin Anti-Xa Level ABG pH ABG pO2 ABG HCO3 ABG O2 Saturation ABG Base Excess ABG Hemoglobin Sodium Potassium Chloride Carbon Dioxide BUN Creatinine Glucose POC Glucose 155 H 134 H 148 H Lactic Acid Calcium Magnesium Ferritin AST ALT Lactate Dehydrogenase Total Creatine Kinase CK-MB (CK-2) Troponin T C-Reactive Protein NT-Pro-B Natriuret Pep Total Protein Albumin Triglycerides HDL Cholesterol Urine WBC (Auto) Urine Creatinine Urine Chloride Urine Total Protein Crossmatch 02/25/20 02/25/20 02/25/20 05:11 10:39 11:40 WBC RBC Hgb 8.6 L Hct 25.6 L RDW Plt Count 79 L Lymph % (Auto) Henry # Seg Neutrophils % Seg Neuts % (Manual) Lymphocytes % (Manual) Monocytes % (Manual) Seg Neutrophils # Seg Neutrophils # Man Monocytes # (Manual) PT INR D-Dimer Heparin Anti-Xa Level ABG pH ABG pO2 ABG HCO3 ABG O2 Saturation ABG Base Excess ABG Hemoglobin Sodium Potassium Chloride 108.6 H Carbon Dioxide BUN 77 H Creatinine 2.9 H Glucose 121 H POC Glucose 119 H Lactic Acid Calcium 7.5 L Magnesium Ferritin AST ALT Lactate Dehydrogenase Total Creatine Kinase CK-MB (CK-2) Troponin T C-Reactive Protein NT-Pro-B Natriuret Pep Total Protein Albumin Triglycerides HDL Cholesterol Urine WBC (Auto) Urine Creatinine Urine Chloride Urine Total Protein Crossmatch 02/25/20 02/25/20 02/25/20 15:24 17:21 23:18 WBC RBC Hgb Hct RDW Plt Count Lymph % (Auto) Henry # Seg Neutrophils % Seg Neuts % (Manual) Lymphocytes % (Manual) Monocytes % (Manual) Seg Neutrophils # Seg Neutrophils # Man Monocytes # (Manual) PT INR D-Dimer Heparin Anti-Xa Level ABG pH ABG pO2 ABG HCO3 ABG O2 Saturation ABG Base Excess ABG Hemoglobin Sodium Potassium Chloride Carbon Dioxide BUN Creatinine Glucose POC Glucose 138 H 139 H 109 H Lactic Acid Calcium Magnesium Ferritin AST ALT Lactate Dehydrogenase Total Creatine Kinase CK-MB (CK-2) Troponin T C-Reactive Protein NT-Pro-B Natriuret Pep Total Protein Albumin Triglycerides HDL Cholesterol Urine WBC (Auto) Urine Creatinine Urine Chloride Urine Total Protein Crossmatch 02/26/20 02/26/20 05:55 12:12 WBC RBC Hgb Hct RDW Plt Count Lymph % (Auto) Henry # Seg Neutrophils % Seg Neuts % (Manual) Lymphocytes % (Manual) Monocytes % (Manual) Seg Neutrophils # Seg Neutrophils # Man Monocytes # (Manual) PT INR D-Dimer Heparin Anti-Xa Level ABG pH ABG pO2 ABG HCO3 ABG O2 Saturation ABG Base Excess ABG Hemoglobin Sodium Potassium Chloride Carbon Dioxide BUN Creatinine Glucose POC Glucose 111 H 128 H Lactic Acid Calcium Magnesium Ferritin AST ALT Lactate Dehydrogenase Total Creatine Kinase CK-MB (CK-2) Troponin T C-Reactive Protein NT-Pro-B Natriuret Pep Total Protein Albumin Triglycerides HDL Cholesterol Urine WBC (Auto) Urine Creatinine Urine Chloride Urine Total Protein Crossmatch
[2020-02-26 13:46] LABS: Calcium 7.9 mg/dL (8.4-10.2)
[2020-02-26] MEDS ORDERED: DEXTROSE 5% IN WATER 1,000 ML IV SCH (15:00)
[2020-02-26] MEDS: IPRATROPIUM/ALBUTEROL SULFATE 3 ML AMPUL.NEB IH SCH ×2 (17:50→20:42)
[2020-02-27] MEDS: INSULIN REGULAR, HUMAN 100 UNIT/ML 3ML VIAL SUB-Q SCH ×3 (06:08→20:00)
[2020-02-27 07:31] LABS: Calcium 7.8 mg/dL (8.4-10.2)
[2020-02-27] MEDS: IPRATROPIUM/ALBUTEROL SULFATE 3 ML AMPUL.NEB IH SCH ×3 (07:34→19:38)
[2020-02-27 07:36] LABS: Basophils % (Auto) 0.5 % (0.0-1.8); Eosinophils # (Auto) 0.3 K/mm3 (0.0-0.4); Eosinophils % (Auto) 5.1 % (0.0-4.3); Hemoglobin 8.5 gm/dl (11.8-15.2); Lymphocytes # (Auto) 1.2 K/mm3 (1.2-5.4); Lymphocytes % (Auto) 19.4 % (13.4-35.0); Mean Corpuscular HGB Conc 34 % (32-34); Mean Corpuscular Volume 88 fl (84-94); Monocytes # (Auto) 0.7 K/mm3 (0.0-0.8); Monocytes % (Auto) 12.1 % (0.0-7.3); Red Blood Count 2.84 M/mm3 (3.65-5.03); Red Cell Distribution Width 15.8 % (13.2-15.2)
[2020-02-27 07:39] LABS: Platelet Count 65 K/mm3 (140-440)
--- NOTE | 2020-02-27 08:56 | Progress Note ---
Assessment and Plan 74 y/o male with known dementia, mumbles very few words at baseline if any, blank stares, admitted with altered mental status, respiratory failure, worsening renal failure and sepsis with shock 1. Pulm-extubated on nasal cannula. Ordered NT suction qshift. Will continue 2. CV- stable now 3. If going to LTACH, no objection pulmonary duong for discharge. Subjective Date of service: 02/27/20 Principal diagnosis: Septic Shock Interval history: No acute events. Stable on 2 liters. No further documentation in notes about LTACH from . Objective Vital Signs - 12hr 02/26/20 02/26/20 02/27/20 22:58 23:36 02:59 Temperature 98.8 F Pulse Rate 96 H 95 H 94 H Pulse Rate [ Anterior Bilateral Throughout] Respiratory 18 Rate Respiratory Rate [Anterior Bilateral Throughout] Blood Pressure 97/62 O2 Sat by Pulse 100 Oximetry 02/27/20 02/27/20 02/27/20 03:22 07:36 07:37 Temperature 99.1 F Pulse Rate 89 Pulse Rate [ 85 Anterior Bilateral Throughout] Respiratory 19 Rate Respiratory 20 Rate [Anterior Bilateral Throughout] Blood Pressure 101/61 O2 Sat by Pulse 95 95 Oximetry 02/27/20 08:42 Temperature 99.3 F Pulse Rate 76 Pulse Rate [ Anterior Bilateral Throughout] Respiratory 28 H Rate Respiratory Rate [Anterior Bilateral Throughout] Blood Pressure 102/48 O2 Sat by Pulse 95 Oximetry Constitutional: alert ENT: other (orally intubated critically ill on vent) Neck: supple Effort: mildly labored Ascultation: Bilateral: clear, diminished breath sounds, rhonchi (Bilateral upper airway noises) Percussion: Bilateral: not dull Cardiovascular: other (sinus tachycardia) Neurologic: unable to assess CBC and BMP: 02/27/20 06:05 02/27/20 06:05 ABG, PT/INR, D-dimer: ABG ABG pH 7.355 pH Units (7.350-7.450) 02/19/20 05:08 ABG pCO2 27.3 mm Hg 02/19/20 05:08 ABG pO2 168.2 mm Hg (80.0-90.0) H 02/19/20 05:08 ABG O2 Saturation 99.0 % (95.0-99.0) 02/19/20 05:08 PT/INR, D-dimer PT 18.6 Sec. (12.2-14.9) H 02/19/20 03:20 INR 1.53 (0.87-1.13) H 02/19/20 03:20 D-Dimer 1327.30 ng/mlDDU (0-234) H 02/20/20 17:20 Abnormal lab findings: Abnormal Labs 02/17/20 02/17/20 02/17/20 16:28 16:28 16:28 WBC 23.5 H RBC 3.07 L Hgb 9.1 L Hct 28.4 L RDW 16.8 H Plt Count Lymph % (Auto) [place] % (Auto) Eos % (Auto) [place] # Seg Neutrophils % Seg Neuts % (Manual) 84.0 H Lymphocytes % (Manual) 8.0 L Monocytes % (Manual) 8.0 H Seg Neutrophils # Seg Neutrophils # Man 19.7 H Monocytes # (Manual) 1.9 H PT 15.3 H INR 1.19 H D-Dimer Heparin Anti-Xa Level ABG pH ABG pO2 ABG HCO3 ABG O2 Saturation ABG Base Excess ABG Hemoglobin Sodium 136 L Potassium 5.4 H Chloride Carbon Dioxide 15 L BUN 91 H Creatinine 3.7 H D Glucose 120 H POC Glucose Lactic Acid Calcium 7.9 L Magnesium Ferritin AST 65 H ALT 81 H Lactate Dehydrogenase Total Creatine Kinase CK-MB (CK-2) Troponin T C-Reactive Protein NT-Pro-B Natriuret Pep Total Protein 5.4 L Albumin 2.3 L Triglycerides HDL Cholesterol Urine WBC (Auto) Urine Creatinine Urine Chloride Urine Total Protein Crossmatch 02/17/20 02/17/20 02/17/20 16:28 16:28 16:28 WBC RBC Hgb Hct RDW Plt Count Lymph % (Auto) [place] % (Auto) Eos % (Auto) [place] # Seg Neutrophils % Seg Neuts % (Manual) Lymphocytes % (Manual) Monocytes % (Manual) Seg Neutrophils # Seg Neutrophils # Man Monocytes # (Manual) PT INR D-Dimer > 25513 H Heparin Anti-Xa Level ABG pH ABG pO2 ABG HCO3 ABG O2 Saturation ABG Base Excess ABG Hemoglobin Sodium Potassium Chloride Carbon Dioxide BUN Creatinine Glucose POC Glucose Lactic Acid 2.70 H* Calcium Magnesium Ferritin AST ALT Lactate Dehydrogenase Total Creatine Kinase CK-MB (CK-2) Troponin T 0.748 H* C-Reactive Protein NT-Pro-B Natriuret Pep 1980 H Total Protein Albumin Triglycerides HDL Cholesterol Urine WBC (Auto) Urine Creatinine Urine Chloride Urine Total Protein Crossmatch 02/17/20 02/17/20 02/17/20 16:28 16:28 18:35 WBC RBC Hgb Hct RDW Plt Count Lymph % (Auto) [place] % (Auto) Eos % (Auto) [place] # Seg Neutrophils % Seg Neuts % (Manual) Lymphocytes % (Manual) Monocytes % (Manual) Seg Neutrophils # Seg Neutrophils # Man Monocytes # (Manual) PT INR D-Dimer Heparin Anti-Xa Level ABG pH 7.303 L ABG pO2 327.3 H ABG HCO3 12.5 L ABG O2 Saturation 99.5 H ABG Base Excess -12.3 L ABG Hemoglobin 11.2 L Sodium Potassium Chloride Carbon Dioxide BUN Creatinine Glucose POC Glucose Lactic Acid Calcium Magnesium Ferritin 1191.0 H AST ALT Lactate Dehydrogenase 381 H Total Creatine Kinase CK-MB (CK-2) Troponin T C-Reactive Protein 18.20 H NT-Pro-B Natriuret Pep Total Protein Albumin Triglycerides HDL Cholesterol Urine WBC (Auto) Urine Creatinine Urine Chloride Urine Total Protein Crossmatch 02/17/20 02/18/20 02/18/20 Unknown 05:20 10:10 WBC RBC Hgb Hct RDW Plt Count Lymph % (Auto) [place] % (Auto) Eos % (Auto) [place] # Seg Neutrophils % Seg Neuts % (Manual) Lymphocytes % (Manual) Monocytes % (Manual) Seg Neutrophils # Seg Neutrophils # Man Monocytes # (Manual) PT INR D-Dimer Heparin Anti-Xa Level ABG pH 7.217 L ABG pO2 165.7 H ABG HCO3 10.5 L ABG O2 Saturation ABG Base Excess -15.7 L ABG Hemoglobin 10.3 L Sodium Potassium Chloride Carbon Dioxide BUN Creatinine Glucose POC Glucose Lactic Acid Calcium Magnesium Ferritin AST ALT Lactate Dehydrogenase Total Creatine Kinase 5660 H CK-MB (CK-2) 78.0 H Troponin T 1.030 H* D C-Reactive Protein NT-Pro-B Natriuret Pep Total Protein Albumin Triglycerides 164 H HDL Cholesterol 38 L Urine WBC (Auto) 17.0 H Urine Creatinine Urine Chloride Urine Total Protein Crossmatch 02/18/20 02/18/20 02/18/20 12:14 17:32 17:40 WBC RBC Hgb Hct RDW Plt Count Lymph % (Auto) [place] % (Auto) Eos % (Auto) [place] # Seg Neutrophils % Seg Neuts % (Manual) Lymphocytes % (Manual) Monocytes % (Manual) Seg Neutrophils # Seg Neutrophils # Man Monocytes # (Manual) PT INR D-Dimer Heparin Anti-Xa Level ABG pH ABG pO2 ABG HCO3 ABG O2 Saturation ABG Base Excess ABG Hemoglobin Sodium Potassium Chloride Carbon Dioxide BUN Creatinine Glucose POC Glucose 193 H 191 H Lactic Acid Calcium Magnesium Ferritin AST ALT Lactate Dehydrogenase Total Creatine Kinase CK-MB (CK-2) Troponin T C-Reactive Protein NT-Pro-B Natriuret Pep Total Protein Albumin Triglycerides HDL Cholesterol Urine WBC (Auto) Urine Creatinine 35.2 H Urine Chloride 81.0 L Urine Total Protein 38 H Crossmatch 02/18/20 02/19/20 02/19/20 17:40 00:04 01:50 WBC RBC Hgb Hct RDW Plt Count Lymph % (Auto) [place] % (Auto) Eos % (Auto) [place] # Seg Neutrophils % Seg Neuts % (Manual) Lymphocytes % (Manual) Monocytes % (Manual) Seg Neutrophils # Seg Neutrophils # Man Monocytes # (Manual) PT INR D-Dimer Heparin Anti-Xa Level 0.18 L ABG pH ABG pO2 ABG HCO3 ABG O2 Saturation ABG Base Excess ABG Hemoglobin Sodium Potassium Chloride 111.4 H Carbon Dioxide 11 L BUN 77 H Creatinine 2.8 H Glucose 168 H POC Glucose 145 H Lactic Acid Calcium 7.2 L Magnesium Ferritin AST ALT Lactate Dehydrogenase Total Creatine Kinase CK-MB (CK-2) Troponin T C-Reactive Protein NT-Pro-B Natriuret Pep Total Protein Albumin Triglycerides HDL Cholesterol Urine WBC (Auto) Urine Creatinine Urine Chloride Urine Total Protein Crossmatch 02/19/20 02/19/20 02/19/20 03:20 04:00 05:08 WBC 17.6 H RBC 2.76 L Hgb 8.1 L Hct 25.0 L RDW 16.6 H Plt Count Lymph % (Auto) 10.5 L [place] % (Auto) Eos % (Auto) [place] # 1.2 H Seg Neutrophils % 82.1 H Seg Neuts % (Manual) Lymphocytes % (Manual) Monocytes % (Manual) Seg Neutrophils # 14.5 H Seg Neutrophils # Man Monocytes # (Manual) PT 18.6 H INR 1.53 H D-Dimer Heparin Anti-Xa Level ABG pH ABG pO2 168.2 H ABG HCO3 14.9 L ABG O2 Saturation ABG Base Excess -9.5 L ABG Hemoglobin 8.3 L Sodium Potassium Chloride Carbon Dioxide BUN Creatinine Glucose POC Glucose Lactic Acid Calcium Magnesium Ferritin AST ALT Lactate Dehydrogenase Total Creatine Kinase CK-MB (CK-2) Troponin T C-Reactive Protein NT-Pro-B Natriuret Pep Total Protein Albumin Triglycerides HDL Cholesterol Urine WBC (Auto) Urine Creatinine Urine Chloride Urine Total Protein Crossmatch 02/19/20 02/19/20 02/19/20 05:38 05:50 09:10 WBC RBC Hgb Hct RDW Plt Count Lymph % (Auto) [place] % (Auto) Eos % (Auto) [place] # Seg Neutrophils % Seg Neuts % (Manual) Lymphocytes % (Manual) Monocytes % (Manual) Seg Neutrophils # Seg Neutrophils # Man Monocytes # (Manual) PT INR D-Dimer Heparin Anti-Xa Level ABG pH ABG pO2 ABG HCO3 ABG O2 Saturation ABG Base Excess ABG Hemoglobin Sodium Potassium Chloride 111.6 H 111.9 H Carbon Dioxide 14 L 15 L BUN 69 H 68 H Creatinine 2.6 H 2.5 H Glucose 151 H 154 H POC Glucose 143 H Lactic Acid Calcium 7.4 L 7.2 L Magnesium Ferritin AST ALT Lactate Dehydrogenase Total Creatine Kinase 3552 H CK-MB (CK-2) Troponin T C-Reactive Protein NT-Pro-B Natriuret Pep Total Protein Albumin Triglycerides HDL Cholesterol Urine WBC (Auto) Urine Creatinine Urine Chloride Urine Total Protein Crossmatch 02/19/20 02/19/20 02/19/20 11:41 12:00 17:46 WBC RBC Hgb Hct RDW Plt Count Lymph % (Auto) [place] % (Auto) Eos % (Auto) [place] # Seg Neutrophils % Seg Neuts % (Manual) Lymphocytes % (Manual) Monocytes % (Manual) Seg Neutrophils # Seg Neutrophils # Man Monocytes # (Manual) PT INR D-Dimer Heparin Anti-Xa Level 0.11 L ABG pH ABG pO2 ABG HCO3 ABG O2 Saturation ABG Base Excess ABG Hemoglobin Sodium Potassium Chloride Carbon Dioxide BUN Creatinine Glucose POC Glucose 160 H 133 H Lactic Acid Calcium Magnesium Ferritin AST ALT Lactate Dehydrogenase Total Creatine Kinase CK-MB (CK-2) Troponin T C-Reactive Protein NT-Pro-B Natriuret Pep Total Protein Albumin Triglycerides HDL Cholesterol Urine WBC (Auto) Urine Creatinine Urine Chloride Urine Total Protein Crossmatch 02/19/20 02/19/20 02/20/20 20:02 23:50 04:44 WBC RBC 2.64 L Hgb 7.9 L Hct 24.1 L RDW 16.3 H Plt Count 137 L Lymph % (Auto) [place] % (Auto) Eos % (Auto) [place] # Seg Neutrophils % Seg Neuts % (Manual) Lymphocytes % (Manual) Monocytes % (Manual) Seg Neutrophils # Seg Neutrophils # Man Monocytes # (Manual) PT INR D-Dimer Heparin Anti-Xa Level 0.12 L ABG pH ABG pO2 ABG HCO3 ABG O2 Saturation ABG Base Excess ABG Hemoglobin Sodium Potassium Chloride Carbon Dioxide BUN Creatinine Glucose POC Glucose 128 H Lactic Acid Calcium Magnesium Ferritin AST ALT Lactate Dehydrogenase Total Creatine Kinase CK-MB (CK-2) Troponin T C-Reactive Protein NT-Pro-B Natriuret Pep Total Protein Albumin Triglycerides HDL Cholesterol Urine WBC (Auto) Urine Creatinine Urine Chloride Urine Total Protein Crossmatch 02/20/20 02/20/20 02/20/20 04:44 04:44 10:00 WBC RBC Hgb Hct RDW Plt Count Lymph % (Auto) [place] % (Auto) Eos % (Auto) [place] # Seg Neutrophils % Seg Neuts % (Manual) Lymphocytes % (Manual) Monocytes % (Manual) Seg Neutrophils # Seg Neutrophils # Man Monocytes # (Manual) PT INR D-Dimer Heparin Anti-Xa Level 0.15 L < 0.10 L ABG pH ABG pO2 ABG HCO3 ABG O2 Saturation ABG Base Excess ABG Hemoglobin Sodium Potassium Chloride 110.4 H Carbon Dioxide 19 L BUN 61 H Creatinine 2.4 H Glucose POC Glucose Lactic Acid Calcium 7.3 L Magnesium Ferritin AST ALT Lactate Dehydrogenase Total Creatine Kinase 2238 H CK-MB (CK-2) Troponin T C-Reactive Protein NT-Pro-B Natriuret Pep Total Protein Albumin Triglycerides HDL Cholesterol Urine WBC (Auto) Urine Creatinine Urine Chloride Urine Total Protein Crossmatch 02/20/20 02/20/20 02/20/20 12:58 17:20 17:20 WBC RBC Hgb Hct RDW Plt Count Lymph % (Auto) [place] % (Auto) Eos % (Auto) [place] # Seg Neutrophils % Seg Neuts % (Manual) Lymphocytes % (Manual) Monocytes % (Manual) Seg Neutrophils # Seg Neutrophils # Man Monocytes # (Manual) PT INR D-Dimer 1327.30 H Heparin Anti-Xa Level 0.17 L ABG pH ABG pO2 ABG HCO3 ABG O2 Saturation ABG Base Excess ABG Hemoglobin Sodium Potassium Chloride Carbon Dioxide BUN Creatinine Glucose POC Glucose 123 H Lactic Acid Calcium Magnesium Ferritin AST ALT Lactate Dehydrogenase Total Creatine Kinase CK-MB (CK-2) Troponin T C-Reactive Protein NT-Pro-B Natriuret Pep Total Protein Albumin Triglycerides HDL Cholesterol Urine WBC (Auto) Urine Creatinine Urine Chloride Urine Total Protein Crossmatch 02/20/20 02/20/20 02/20/20 17:20 18:11 23:52 WBC RBC Hgb Hct RDW Plt Count Lymph % (Auto) [place] % (Auto) Eos % (Auto) [place] # Seg Neutrophils % Seg Neuts % (Manual) Lymphocytes % (Manual) Monocytes % (Manual) Seg Neutrophils # Seg Neutrophils # Man Monocytes # (Manual) PT INR D-Dimer Heparin Anti-Xa Level ABG pH ABG pO2 ABG HCO3 ABG O2 Saturation ABG Base Excess ABG Hemoglobin Sodium Potassium Chloride Carbon Dioxide BUN Creatinine Glucose POC Glucose 156 H 153 H Lactic Acid Calcium Magnesium Ferritin AST ALT Lactate Dehydrogenase Total Creatine Kinase CK-MB (CK-2) Troponin T 0.573 H* D C-Reactive Protein NT-Pro-B Natriuret Pep Total Protein Albumin Triglycerides HDL Cholesterol Urine WBC (Auto) Urine Creatinine Urine Chloride Urine Total Protein Crossmatch 02/21/20 02/21/20 02/21/20 04:39 04:39 05:12 WBC RBC 2.35 L Hgb 6.9 L Hct 21.1 L RDW 16.2 H Plt Count 126 L Lymph % (Auto) [place] % (Auto) Eos % (Auto) [place] # Seg Neutrophils % Seg Neuts % (Manual) Lymphocytes % (Manual) Monocytes % (Manual) Seg Neutrophils # Seg Neutrophils # Man Monocytes # (Manual) PT INR D-Dimer Heparin Anti-Xa Level ABG pH ABG pO2 ABG HCO3 ABG O2 Saturation ABG Base Excess ABG Hemoglobin Sodium Potassium Chloride Carbon Dioxide BUN 54 H Creatinine 2.2 H Glucose 120 H POC Glucose 139 H Lactic Acid Calcium 6.8 L Magnesium Ferritin AST ALT Lactate Dehydrogenase Total Creatine Kinase 1488 H CK-MB (CK-2) Troponin T C-Reactive Protein NT-Pro-B Natriuret Pep Total Protein Albumin Triglycerides HDL Cholesterol Urine WBC (Auto) Urine Creatinine Urine Chloride Urine Total Protein Crossmatch 02/21/20 02/21/20 02/21/20 10:47 13:24 15:41 WBC RBC Hgb Hct RDW Plt Count Lymph % (Auto) [place] % (Auto) Eos % (Auto) [place] # Seg Neutrophils % Seg Neuts % (Manual) Lymphocytes % (Manual) Monocytes % (Manual) Seg Neutrophils # Seg Neutrophils # Man Monocytes # (Manual) PT INR D-Dimer Heparin Anti-Xa Level < 0.10 L ABG pH ABG pO2 ABG HCO3 ABG O2 Saturation ABG Base Excess ABG Hemoglobin Sodium Potassium Chloride Carbon Dioxide BUN Creatinine Glucose POC Glucose 107 H Lactic Acid Calcium Magnesium Ferritin AST ALT Lactate Dehydrogenase Total Creatine Kinase CK-MB (CK-2) Troponin T C-Reactive Protein NT-Pro-B Natriuret Pep Total Protein Albumin Triglycerides HDL Cholesterol Urine WBC (Auto) Urine Creatinine Urine Chloride Urine Total Protein Crossmatch See Detail 02/22/20 02/22/20 02/22/20 05:13 05:13 12:24 WBC RBC 3.18 L Hgb 9.5 L Hct 27.6 L D RDW 15.9 H Plt Count 114 L Lymph % (Auto) [place] % (Auto) Eos % (Auto) [place] # Seg Neutrophils % Seg Neuts % (Manual) Lymphocytes % (Manual) Monocytes % (Manual) Seg Neutrophils # Seg Neutrophils # Man Monocytes # (Manual) PT INR D-Dimer Heparin Anti-Xa Level ABG pH ABG pO2 ABG HCO3 ABG O2 Saturation ABG Base Excess ABG Hemoglobin Sodium Potassium Chloride Carbon Dioxide BUN 52 H Creatinine 2.3 H Glucose 103 H POC Glucose 122 H Lactic Acid Calcium 6.7 L Magnesium Ferritin AST ALT Lactate Dehydrogenase Total Creatine Kinase 865 H CK-MB (CK-2) Troponin T C-Reactive Protein NT-Pro-B Natriuret Pep Total Protein Albumin Triglycerides HDL Cholesterol Urine WBC (Auto) Urine Creatinine Urine Chloride Urine Total Protein Crossmatch 02/22/20 02/23/20 02/23/20 17:17 05:27 05:36 WBC RBC 3.15 L Hgb 9.4 L Hct 27.6 L RDW 15.9 H Plt Count 97 L Lymph % (Auto) [place] % (Auto) Eos % (Auto) [place] # Seg Neutrophils % Seg Neuts % (Manual) Lymphocytes % (Manual) Monocytes % (Manual) Seg Neutrophils # Seg Neutrophils # Man Monocytes # (Manual) PT INR D-Dimer Heparin Anti-Xa Level ABG pH ABG pO2 ABG HCO3 ABG O2 Saturation ABG Base Excess ABG Hemoglobin Sodium Potassium Chloride Carbon Dioxide BUN Creatinine Glucose POC Glucose 165 H 120 H Lactic Acid Calcium Magnesium Ferritin AST ALT Lactate Dehydrogenase Total Creatine Kinase CK-MB (CK-2) Troponin T C-Reactive Protein NT-Pro-B Natriuret Pep Total Protein Albumin Triglycerides HDL Cholesterol Urine WBC (Auto) Urine Creatinine Urine Chloride Urine Total Protein Crossmatch 02/23/20 02/23/20 02/23/20 05:36 05:36 11:57 WBC RBC Hgb Hct RDW Plt Count Lymph % (Auto) [place] % (Auto) Eos % (Auto) [place] # Seg Neutrophils % Seg Neuts % (Manual) Lymphocytes % (Manual) Monocytes % (Manual) Seg Neutrophils # Seg Neutrophils # Man Monocytes # (Manual) PT INR D-Dimer Heparin Anti-Xa Level ABG pH ABG pO2 ABG HCO3 ABG O2 Saturation ABG Base Excess ABG Hemoglobin Sodium Potassium 3.0 L D Chloride Carbon Dioxide BUN 53 H Creatinine 2.3 H Glucose 115 H POC Glucose 162 H Lactic Acid Calcium 7.0 L Magnesium 1.20 L Ferritin AST ALT Lactate Dehydrogenase Total Creatine Kinase 476 H CK-MB (CK-2) Troponin T C-Reactive Protein NT-Pro-B Natriuret Pep Total Protein Albumin Triglycerides HDL Cholesterol Urine WBC (Auto) Urine Creatinine Urine Chloride Urine Total Protein Crossmatch 02/24/20 02/24/20 02/24/20 05:33 05:55 05:55 WBC RBC 3.17 L Hgb 9.4 L Hct 28.2 L RDW 16.1 H Plt Count 96 L Lymph % (Auto) [place] % (Auto) Eos % (Auto) [place] # Seg Neutrophils % Seg Neuts % (Manual) Lymphocytes % (Manual) Monocytes % (Manual) Seg Neutrophils # Seg Neutrophils # Man Monocytes # (Manual) PT INR D-Dimer Heparin Anti-Xa Level ABG pH ABG pO2 ABG HCO3 ABG O2 Saturation ABG Base Excess ABG Hemoglobin Sodium 146 H Potassium Chloride 110.0 H Carbon Dioxide BUN 69 H Creatinine 2.6 H Glucose 119 H POC Glucose 156 H Lactic Acid Calcium 7.2 L Magnesium Ferritin AST ALT Lactate Dehydrogenase Total Creatine Kinase 362 H CK-MB (CK-2) Troponin T C-Reactive Protein NT-Pro-B Natriuret Pep Total Protein Albumin Triglycerides HDL Cholesterol Urine WBC (Auto) Urine Creatinine Urine Chloride Urine Total Protein Crossmatch 02/24/20 02/24/20 02/24/20 11:51 18:35 23:41 WBC RBC Hgb Hct RDW Plt Count Lymph % (Auto) [place] % (Auto) Eos % (Auto) [place] # Seg Neutrophils % Seg Neuts % (Manual) Lymphocytes % (Manual) Monocytes % (Manual) Seg Neutrophils # Seg Neutrophils # Man Monocytes # (Manual) PT INR D-Dimer Heparin Anti-Xa Level ABG pH ABG pO2 ABG HCO3 ABG O2 Saturation ABG Base Excess ABG Hemoglobin Sodium Potassium Chloride Carbon Dioxide BUN Creatinine Glucose POC Glucose 155 H 134 H 148 H Lactic Acid Calcium Magnesium Ferritin AST ALT Lactate Dehydrogenase Total Creatine Kinase CK-MB (CK-2) Troponin T C-Reactive Protein NT-Pro-B Natriuret Pep Total Protein Albumin Triglycerides HDL Cholesterol Urine WBC (Auto) Urine Creatinine Urine Chloride Urine Total Protein Crossmatch 02/25/20 02/25/20 02/25/20 05:11 10:39 11:40 WBC RBC Hgb 8.6 L Hct 25.6 L RDW Plt Count 79 L Lymph % (Auto) [place] % (Auto) Eos % (Auto) [place] # Seg Neutrophils % Seg Neuts % (Manual) Lymphocytes % (Manual) Monocytes % (Manual) Seg Neutrophils # Seg Neutrophils # Man Monocytes # (Manual) PT INR D-Dimer Heparin Anti-Xa Level ABG pH ABG pO2 ABG HCO3 ABG O2 Saturation ABG Base Excess ABG Hemoglobin Sodium Potassium Chloride 108.6 H Carbon Dioxide BUN 77 H Creatinine 2.9 H Glucose 121 H POC Glucose 119 H Lactic Acid Calcium 7.5 L Magnesium Ferritin AST ALT Lactate Dehydrogenase Total Creatine Kinase CK-MB (CK-2) Troponin T C-Reactive Protein NT-Pro-B Natriuret Pep Total Protein Albumin Triglycerides HDL Cholesterol Urine WBC (Auto) Urine Creatinine Urine Chloride Urine Total Protein Crossmatch 02/25/20 02/25/20 02/25/20 15:24 17:21 23:18 WBC RBC Hgb Hct RDW Plt Count Lymph % (Auto) [place] % (Auto) Eos % (Auto) [place] # Seg Neutrophils % Seg Neuts % (Manual) Lymphocytes % (Manual) Monocytes % (Manual) Seg Neutrophils # Seg Neutrophils # Man Monocytes # (Manual) PT INR D-Dimer Heparin Anti-Xa Level ABG pH ABG pO2 ABG HCO3 ABG O2 Saturation ABG Base Excess ABG Hemoglobin Sodium Potassium Chloride Carbon Dioxide BUN Creatinine Glucose POC Glucose 138 H 139 H 109 H Lactic Acid Calcium Magnesium Ferritin AST ALT Lactate Dehydrogenase Total Creatine Kinase CK-MB (CK-2) Troponin T C-Reactive Protein NT-Pro-B Natriuret Pep Total Protein Albumin Triglycerides HDL Cholesterol Urine WBC (Auto) Urine Creatinine Urine Chloride Urine Total Protein Crossmatch 02/26/20 02/26/20 02/26/20 05:55 12:12 13:02 WBC RBC Hgb Hct RDW Plt Count Lymph % (Auto) [place] % (Auto) Eos % (Auto) [place] # Seg Neutrophils % Seg Neuts % (Manual) Lymphocytes % (Manual) Monocytes % (Manual) Seg Neutrophils # Seg Neutrophils # Man Monocytes # (Manual) PT INR D-Dimer Heparin Anti-Xa Level ABG pH ABG pO2 ABG HCO3 ABG O2 Saturation ABG Base Excess ABG Hemoglobin Sodium 146 H Potassium Chloride 112.7 H Carbon Dioxide 20 L BUN 81 H Creatinine 3.0 H Glucose 123 H POC Glucose 111 H 128 H Lactic Acid Calcium 7.9 L Magnesium Ferritin AST ALT Lactate Dehydrogenase Total Creatine Kinase CK-MB (CK-2) Troponin T C-Reactive Protein NT-Pro-B Natriuret Pep Total Protein Albumin Triglycerides HDL Cholesterol Urine WBC (Auto) Urine Creatinine Urine Chloride Urine Total Protein Crossmatch 02/26/20 02/26/20 02/27/20 17:57 23:16 06:05 WBC RBC 2.84 L Hgb 8.5 L Hct 25.0 L RDW 15.8 H Plt Count 65 L Lymph % (Auto) [place] % (Auto) 12.1 H Eos % (Auto) 5.1 H [place] # Seg Neutrophils % Seg Neuts % (Manual) Lymphocytes % (Manual) Monocytes % (Manual) Seg Neutrophils # Seg Neutrophils # Man Monocytes # (Manual) PT INR D-Dimer Heparin Anti-Xa Level ABG pH ABG pO2 ABG HCO3 ABG O2 Saturation ABG Base Excess ABG Hemoglobin Sodium Potassium Chloride Carbon Dioxide BUN Creatinine Glucose POC Glucose 156 H 168 H Lactic Acid Calcium Magnesium Ferritin AST ALT Lactate Dehydrogenase Total Creatine Kinase CK-MB (CK-2) Troponin T C-Reactive Protein NT-Pro-B Natriuret Pep Total Protein Albumin Triglycerides HDL Cholesterol Urine WBC (Auto) Urine Creatinine Urine Chloride Urine Total Protein Crossmatch 02/27/20 06:05 WBC RBC Hgb Hct RDW Plt Count Lymph % (Auto) [place] % (Auto) Eos % (Auto) [place] # Seg Neutrophils % Seg Neuts % (Manual) Lymphocytes % (Manual) Monocytes % (Manual) Seg Neutrophils # Seg Neutrophils # Man Monocytes # (Manual) PT INR D-Dimer Heparin Anti-Xa Level ABG pH ABG pO2 ABG HCO3 ABG O2 Saturation ABG Base Excess ABG Hemoglobin Sodium 146 H Potassium Chloride 110.2 H Carbon Dioxide BUN 80 H Creatinine 3.3 H Glucose POC Glucose Lactic Acid Calcium 7.8 L Magnesium Ferritin AST ALT Lactate Dehydrogenase Total Creatine Kinase CK-MB (CK-2) Troponin T C-Reactive Protein NT-Pro-B Natriuret Pep Total Protein Albumin Triglycerides HDL Cholesterol Urine WBC (Auto) Urine Creatinine Urine Chloride Urine Total Protein Crossmatch
--- NOTE | 2020-02-27 09:02 | Progress Note ---
Assessment and Plan Assessment and plan: --Sepsis; right pneumonia/HCAP Continue Vanco and cefepime , follow cultures, supportive care ID,Pulm following --Bilateral pneumonia As noted above. COVID markers elevated Ferritin 1191. Ddmer >10,000. CRP 18. LDH 381. Recent sputum cx with PMDR Proteus, MRSA. H flu. MRSA PCR positive. --elevated D-dimers More than 10,000, on heparin drip V/Q scan low probability for PE lower extremity venous Doppler,neg DVT dc heparin. --Rhabdomyolysis; Continue IV fluids, input output monitoring, CK levels trending down CK [id number] We will monitor renal function --COVID-19 test negative x2 during last admission Test negative during this admission 02/18/2020 However patient has very high levels of inflammatory markers ID consulted, trend the markers --Acute resp failure with hypoxia/extubated 02/19/2020 on nasal cannula oxygen, saturating well Very high ddimer suspect PE post COVID. --Acute kidney injury on chronic kidney disease Secondary to ATN, gentle hydration Avoid nephrotoxins, monitor renal function Nephrology following -- DVT prophylaxis SCD, Heparin ,renal dose PT OT, DC planning 02/24/2020. Patient extubated yesterday and tolerated nasal cannula. Patient's baseline creatinine appears to be 1.6-1.8 2014. Continue IV fluid hydration per nephrology recommendations. CK level was elevated. Therefore, etiology may be from acute kidney injury and rhabdomyolysis. Renal ultrasound revealed chronic medical renal disease and no hydronephrosis. Urine eosinophils negative. Awaiting placement. I discussed the case with case management. 02/25/2020. Patient currently with nasogastric tube and tube feedings at 45 cc an hour. Speech evaluation for swallowing. Patient currently with nasal cannula 3 L O2. Creatinine remains elevated. Recheck BMP. Continue free water flushes 200 ml q 4 hrs via NGT for hypernatremia. Urine eosinophils negative, calcul ated protein to cr ratio 1 g, monitor. Continue vancomycin and cefepime per ID recommendations. 02/26/2020. Speech therapy evaluation reports oropharyngeal dysphagia. Patient will likely need PEG tube placement. Attempted to call family any Marquez to discuss possible PEG placement, no answer. Patient with adequate urine output but creatinine still not improved significantly. Albumin 25% 100 mls q6H X 3 doses. Continue per nephrology recommendations. Antibiotics discontinued yesterday per ID recommendations. 02/27/2020. Speech therapy evaluation reports oropharyngeal dysphagia. Patient will likely need PEG tube placement. Attempted to call family Mica Marquez to discuss possible PEG placement, no answer. We will need case management for assistance. Continue per ID and nephrology recommendations. History Interval history: No new issues overnight Hospitalist Physical - Constitutional Vitals: Temp Pulse Resp BP Pulse Ox 99.3 F 76 28 H 102/48 95 02/27/20 08:42 02/27/20 08:42 02/27/20 08:42 02/27/20 08:42 02/27/20 08:42 General appearance: Present: mild distress, well-nourished, other (confused) - EENT Eyes: Present: PERRL, EOM intact ENT: hearing intact, clear oral mucosa, dentition normal - Neck Neck: Present: supple, normal ROM - Respiratory Respiratory effort: normal Respiratory: bilateral: CTA - Cardiovascular Rhythm: regular Heart Sounds: Present: S1 & S2. Absent: gallop, rub - Extremities Extremities: no ischemia, No edema, Full ROM - Abdominal General gastrointestinal: soft, non-tender, non-distended, normal bowel sounds - Integumentary Integumentary: Present: clear, warm, dry - Neurologic Neurologic: CNII-XII intact, moves all extremities HEART Score - HEART Score Troponin: Troponin T 0.573 ng/mL (0.00-0.029) H* D 02/20/20 17:20 Results - Labs CBC & Chem 7: 02/27/20 06:05 02/27/20 06:05 Labs: Laboratory Last Values WBC 6.2 K/mm3 (4.5-11.0) 02/27/20 06:05 RBC 2.84 M/mm3 (3.65-5.03) L 02/27/20 06:05 Hgb 8.5 gm/dl (11.8-15.2) L 02/27/20 06:05 Hct 25.0 % (35.5-45.6) L 02/27/20 06:05 MCV 88 fl (84-94) 02/27/20 06:05 MCH 30 pg (28-32) 02/27/20 06:05 MCHC 34 % (32-34) 02/27/20 06:05 RDW 15.8 % (13.2-15.2) H 02/27/20 06:05 Plt Count 65 K/mm3 (140-440) L 02/27/20 06:05 Lymph % (Auto) 19.4 % (13.4-35.0) 02/27/20 06:05 [place] % (Auto) 12.1 % (0.0-7.3) H 02/27/20 06:05 Eos % (Auto) 5.1 % (0.0-4.3) H 02/27/20 06:05 Baso % (Auto) 0.5 % (0.0-1.8) 02/27/20 06:05 Lymph # 1.2 K/mm3 (1.2-5.4) 02/27/20 06:05 [place] # 0.7 K/mm3 (0.0-0.8) 02/27/20 06:05 Eos # 0.3 K/mm3 (0.0-0.4) 02/27/20 06:05 Baso # 0.0 K/mm3 (0.0-0.1) 02/27/20 06:05 Add Manual Diff Complete 02/17/20 16:28 Total Counted 100 02/17/20 16:28 Seg Neutrophils % 62.9 % (40.0-70.0) 02/27/20 06:05 Seg Neuts % (Manual) 84.0 % (40.0-70.0) H 02/17/20 16:28 Band Neutrophils % 0 % 02/17/20 16:28 Lymphocytes % (Manual) 8.0 % (13.4-35.0) L 02/17/20 16:28 Reactive Lymphs % (Man) 0 % 02/17/20 16:28 Monocytes % (Manual) 8.0 % (0.0-7.3) H 02/17/20 16:28 Eosinophils % (Manual) 0 % (0.0-4.3) 02/17/20 16:28 Basophils % (Manual) 0 % (0.0-1.8) 02/17/20 16:28 Metamyelocytes % 0 % 02/17/20 16:28 Myelocytes % 0 % 02/17/20 16:28 Promyelocytes % 0 % 02/17/20 16:28 Blast Cells % 0 % 02/17/20 16:28 Nucleated RBC % Not Reportable 02/17/20 16:28 Seg Neutrophils # 3.9 K/mm3 (1.8-7.7) 02/27/20 06:05 Seg Neutrophils # Man 19.7 K/mm3 (1.8-7.7) H 02/17/20 16:28 Band Neutrophils # 0.0 K/mm3 02/17/20 16:28 Lymphocytes # (Manual) 1.9 K/mm3 (1.2-5.4) 02/17/20 16:28 Abs React Lymphs (Man) 0.0 K/mm3 02/17/20 16:28 Monocytes # (Manual) 1.9 K/mm3 (0.0-0.8) H 02/17/20 16:28 Eosinophils # (Manual) 0.0 K/mm3 (0.0-0.4) 02/17/20 16:28 Basophils # (Manual) 0.0 K/mm3 (0.0-0.1) 02/17/20 16:28 Metamyelocytes # 0.0 K/mm3 02/17/20 16:28 Myelocytes # 0.0 K/mm3 02/17/20 16:28 Promyelocytes # 0.0 K/mm3 02/17/20 16:28 Blast Cells # 0.0 K/mm3 02/17/20 16:28 WBC Morphology Not Reportable 02/17/20 16:28 Hypersegmented Neuts Not Reportable 02/17/20 16:28 Hyposegmented Neuts Not Reportable 02/17/20 16:28 Hypogranular Neuts Not Reportable 02/17/20 16:28 Smudge Cells Not Reportable 02/17/20 16:28 Toxic Granulation Not Reportable 02/17/20 16:28 Toxic Vacuolation Not Reportable 02/17/20 16:28 Dohle Bodies Not Reportable 02/17/20 16:28 Pelger-Huet Anomaly Not Reportable 02/17/20 16:28 Krys Rods Not Reportable 02/17/20 16:28 Platelet Estimate Not Reportable 02/17/20 16:28 Clumped Platelets Not Reportable 02/17/20 16:28 Plt Clumps, EDTA Not Reportable 02/17/20 16:28 Large Platelets Not Reportable 02/17/20 16:28 Giant Platelets Not Reportable 02/17/20 16:28 Platelet Satelliting Not Reportable 02/17/20 16:28 Plt Morphology Comment Not Reportable 02/17/20 16:28 RBC Morphology Normal 02/17/20 16:28 Dimorphic RBCs Not Reportable 02/17/20 16:28 Polychromasia Not Reportable 02/17/20 16:28 Hypochromasia Not Reportable 02/17/20 16:28 Poikilocytosis Not Reportable 02/17/20 16:28 Anisocytosis Not Reportable 02/17/20 16:28 Microcytosis Not Reportable 02/17/20 16:28 Macrocytosis Not Reportable 02/17/20 16:28 Spherocytes Not Reportable 02/17/20 16:28 Pappenheimer Bodies Not Reportable 02/17/20 16:28 Sickle Cells Not Reportable 02/17/20 16:28 Target Cells Not Reportable 02/17/20 16:28 Tear Drop Cells Not Reportable 02/17/20 16:28 Ovalocytes Not Reportable 02/17/20 16:28 Helmet Cells Not Reportable 02/17/20 16:28 [place] Bodies Not Reportable 02/17/20 16:28 [place] Rings Not Reportable 02/17/20 16:28 [place] Cells Not Reportable 02/17/20 16:28 Bite Cells Not Reportable 02/17/20 16:28 Crenated Cell Not Reportable 02/17/20 16:28 Elliptocytes Not Reportable 02/17/20 16:28 Acanthocytes (Spur) Not Reportable 02/17/20 16:28 Rouleaux Not Reportable 02/17/20 16:28 Hemoglobin C Crystals Not Reportable 02/17/20 16:28 Schistocytes Not Reportable 02/17/20 16:28 Malaria parasites Not Reportable 02/17/20 16:28 Keron Bodies Not Reportable 02/17/20 16:28 Hem Pathologist Commnt No 02/17/20 16:28 PT 18.6 Sec. (12.2-14.9) H 02/19/20 03:20 INR 1.53 (0.87-1.13) H 02/19/20 03:20 APTT 26.8 Sec. (24.2-36.6) 02/17/20 16:28 D-Dimer 1327.30 ng/mlDDU (0-234) H 02/20/20 17:20 Heparin Anti-Xa Level < 0.10 U.I./ml (0.3-0.7) L 02/21/20 15:41 ABG pH 7.355 pH Units (7.350-7.450) 02/19/20 05:08 ABG pCO2 27.3 mm Hg 02/19/20 05:08 ABG pO2 168.2 mm Hg (80.0-90.0) H 02/19/20 05:08 ABG HCO3 14.9 mmol/L (20.0-26.0) L 02/19/20 05:08 ABG O2 Saturation 99.0 % (95.0-99.0) 02/19/20 05:08 ABG O2 Content 11.7 (0.0-44) 02/19/20 05:08 ABG Base Excess -9.5 mmol/L (-2.0-3.0) L 02/19/20 05:08 ABG Hemoglobin 8.3 gm/dl (14.0-18.0) L 02/19/20 05:08 ABG Carboxyhemoglobin 1.2 % (0.0-5.0) 02/19/20 05:08 ABG Methemoglobin 0.7 % (0.0-1.5) 02/19/20 05:08 Oxyhemoglobin 97.2 % (95.0-99.0) 02/19/20 05:08 FiO2 40 % 02/19/20 05:08 Sodium 146 mmol/L (137-145) H 02/27/20 06:05 Potassium 3.8 mmol/L (3.6-5.0) 02/27/20 06:05 Chloride 110.2 mmol/L (98-107) H 02/27/20 06:05 Carbon Dioxide 23 mmol/L (22-30) 02/27/20 06:05 Anion Gap 17 mmol/L 02/27/20 06:05 BUN 80 mg/dL (9-20) H 02/27/20 06:05 Creatinine 3.3 mg/dL (0.8-1.3) H 02/27/20 06:05 Estimated GFR 22 ml/min 02/27/20 06:05 BUN/Creatinine Ratio 24 % 02/27/20 06:05 Glucose 94 mg/dL (75-100) 02/27/20 06:05 POC Glucose 102 (70-105) 02/27/20 06:16 Lactic Acid 1.90 mmol/L (0.7-2.0) 02/17/20 22:56 Calcium 7.8 mg/dL (8.4-10.2) L 02/27/20 06:05 Magnesium 1.20 mg/dL (1.7-2.3) L 02/23/20 05:36 Ferritin 1191.0 ng/mL (30.0-300.0) H 02/17/20 16:28 Total Bilirubin 0.50 mg/dL (0.1-1.2) 02/17/20 16:28 AST 65 units/L (5-40) H 02/17/20 16:28 ALT 81 units/L (7-56) H 02/17/20 16:28 Alkaline Phosphatase 101 units/L (35-129) 02/17/20 16:28 Lactate Dehydrogenase 381 units/L (91-180) H 02/17/20 16:28 Total Creatine Kinase 362 units/L (55-170) H 02/24/20 05:55 CK-MB (CK-2) 78.0 ng/mL (0.0-4.0) H 02/18/20 10:10 CK-MB (CK-2) Rel Index 1.3 (0-4) 02/18/20 10:10 Troponin T 0.573 ng/mL (0.00-0.029) H* D 02/20/20 17:20 C-Reactive Protein 18.20 mg/dL (0.00-1.30) H 02/17/20 16:28 NT-Pro-B Natriuret Pep 1980 pg/mL (0-900) H 02/17/20 16:28 Total Protein 5.4 g/dL (6.3-8.2) L 02/17/20 16:28 Albumin 2.3 g/dL (3.9-5) L 02/17/20 16:28 Albumin/Globulin Ratio 0.7 % 02/17/20 16:28 Triglycerides 164 mg/dL (2-149) H 02/18/20 10:10 Cholesterol 133 mg/dL (50-199) 02/18/20 10:10 LDL Cholesterol Direct 71 mg/dL (50-130) 02/18/20 10:10 HDL Cholesterol 38 mg/dL (40-59) L 02/18/20 10:10 Cholesterol/HDL Ratio 3.50 % 02/18/20 10:10 Procalcitonin 6.74 ng/mL (<0.15) 02/17/20 16:28 TSH 3.490 mlU/mL (0.270-4.200) 02/17/20 16:28 Urine Color Yellow (Yellow) 02/17/20 Unknown Urine Turbidity Slightly-cloudy (Clear) 02/17/20 Unknown Urine pH 5.0 (5.0-7.0) 02/17/20 Unknown Ur Specific [place] 1.010 (1.003-1.030) 02/17/20 Unknown Urine Protein 30 mg/dl mg/dL (Negative) 02/17/20 Unknown Urine Glucose (UA) Neg mg/dL (Negative) 02/17/20 Unknown Urine Ketones Neg mg/dL (Negative) 02/17/20 Unknown Urine Blood Mod (Negative) 02/17/20 Unknown Urine Nitrite Neg (Negative) 02/17/20 Unknown Urine Bilirubin Neg (Negative) 02/17/20 Unknown Urine Urobilinogen < 2.0 mg/dL (<2.0) 02/17/20 Unknown Ur Leukocyte Esterase Mod (Negative) 02/17/20 Unknown Urine WBC (Auto) 17.0 /HPF (0.0-6.0) H 02/17/20 Unknown Urine RBC (Auto) 17.0 /HPF (0.0-6.0) 02/17/20 Unknown U Epithel Cells (Auto) 4.0 /HPF (0-13.0) 02/17/20 Unknown Urine Bacteria (Auto) 1+ /HPF (Negative) 02/17/20 Unknown Urine Yeast (Budding) 2+ /HPF 02/17/20 Unknown Urine Eosinophils None seen (None Seen) 02/18/20 17:40 Urine Creatinine 35.2 mg/dL (0.1-20.0) H 02/18/20 17:40 Urine Microalbumin 5.9 mg/dL (0.1-34.0) 02/18/20 17:40 Microalb/Creat Ratio 167.6 ug/mg 02/18/20 17:40 Urine Sodium 104 mmol/L 02/18/20 17:40 Urine Chloride 81.0 mmolL (110-250) L 02/18/20 17:40 Urine Total Protein 38 mg/dL (5-11.8) H 02/18/20 17:40 Nasal Screen MRSA (PCR) Positive (Negative) 02/18/20 17:40 Random Vancomycin 15.6 ug/mL (0-40.0) 02/23/20 05:36 Coronavirus (PCR) Negative (Negative) 02/23/20 09:59 Blood Type B NEGATIVE 02/21/20 10:47 Antibody Screen Negative 02/21/20 10:47 Crossmatch See Detail 02/21/20 10:47 - Diagnostic Impressions Diagnostic Impressions: Echocardiogram 02/19/20 15:05 Transthoracic Echocardiogram Indication: NSTEMI BP: 95/50 HR: 107 Conclusions *Global left ventricular systolic function is at the lower limits of normal. *The estimated ejection fraction is 45-50%. *Abnormal left ventricular diastolic filling is observed, consistent with impaired relaxation. *There is evidence of mild pulmonary hypertension. *There is no pericardial effusion. Findings Left Ventricle: The left ventricular chamber size is normal. Global left ventricular systolic function is at the lower limits of normal. The estimated ejection fraction is 45-50%. Abnormal left ventricular diastolic filling is observed, consistent with impaired relaxation. Left Atrium: The left atrial chamber size is normal. Right Ventricle: The right ventricular cavity size is normal. Right Atrium: The right atrial cavity size is normal. Aortic Valve: Mild aortic leaflet calcification is visualized. There is trace of aortic regurgitation. Mitral Valve: Mild mitral leaflet calcification is visualized. There is no evidence of mitral regurgitation. Tricuspid Valve: The tricuspid valve leaflets are normal. There is mild tricuspid regurgitation. The right ventricular systolic pressure is calculated at 40 mmHg. There is evidence of mild pulmonary hypertension. Pericardium: There is no pericardial effusion. Aorta: The aorta appears normal. Venous: The inferior vena cava appears normal. Measurements Chambers 2D Name Value Normal Range IVSd (2D) 1.09 cm (0.6 - 1.1) LVPWd (2D) 1 cm (0.6 - 1.1) LVIDd (2D) 3.55 cm (3.7 - 5.6) LVIDs (2D) 3 cm (2 - 3.8) LV FS (2D) 15.53 % - Ao root diameter (2D) 3.26 cm (2 - 3.7) Volumes/Mass Name Value Normal Range LA ESV SP 4CH (A/L) 17.3 ml - LA ESV SP 2CH (A/L) 18.3 ml - LA ESV BP (A/L) 19.14 ml - LA ESV BP (A/L) index 9.38 ml/m2 - LA ESV SP 4CH (MOD) 15.02 ml - LA ESV SP 2CH (MOD) 17.03 ml - LA ESV BP (MOD) 17.14 ml - LA ESV BP (MOD) index 8.4 ml/m2 - Diastolic/Systolic Function Name Value Normal Range MV E-wave Vmax 0.56 m/sec - MV deceleration time 197.94 msec - MV A-wave Vmax 1.36 m/sec - MV E:A ratio 0.41 ratio - Aortic Valve Name Value Normal Range AV Vmax 2.3 m/sec - AV VTI 33.77 cm - AV peak gradient 22.91 mmHg - AV mean gradient 12.27 mmHg - LVOT diameter 2.08 cm - LVOT Vmax 0.84 m/sec - LVOT VTI 14.82 cm - LVOT peak gradient 2.82 mmHg - LVOT mean gradient 2 mmHg - SV LVOT 50.44 ml - KALYAN (continuity Vmax) 1.24 cm2 - KALYAN (continuity VTI) 1.49 cm2 - AR PHT 460.84 msec - AR peak gradient 52.84 mmHg - Tricuspid Valve Name Value Normal Range TR Vmax 3.03 m/sec - TR peak gradient 37 mmHg - RAP 3 mmHg - RVSP 40 mmHg - Pulmonic Valve/Qp:Qs Name Value Normal Range PV acceleration time 106.57 msec - Yin/IV: Voiding Method Indwelling Catheter IV Catheter Type [Right Hand] INT / Saline Lock IV Catheter Type [Left Upper INT / Saline Lock arm] IV Catheter Type [Right Triple Lumen Cath Femoral] IV Catheter Type [Right INT / Saline Lock Antecubital] Active Medications - Current Medications Current Medications: Generic Name Dose Route Start Last Admin Trade Name Freq PRN Reason Stop Dose Admin Albuterol 2.5 mg 02/26/20 09:18 Proventil IH Q4HRT PRN Shortness Of Breath Albuterol/Ipratropium 1 ampul 02/26/20 14:00 02/27/20 07:34 Duoneb *Not For Prn Use* IH 1 ampul TIDRT LOS Administration Lipase/Protease/Amylase 1 each 02/21/20 12:12 Pancreazchica Simon 10,500 Unit FEEDTUBE PRN PRN For Clogged Feeding Tube Aspirin 81 mg 02/18/20 10:00 02/26/20 12:02 Baby Aspirin PO 81 mg DAILY LOS Administration Atorvastatin Calcium 20 mg 02/18/20 22:00 02/26/20 22:48 Lipitor PO 20 mg QHS LOS Administration Dextrose 50 ml 02/18/20 12:55 D50w (25gm) Syringe IV Q30MIN PRN Hypoglycemia Protocol Docusate Sodium 100 mg 02/20/20 12:00 02/26/20 22:48 Colace PO 100 mg BID LOS Administration Heparin Sodium (Porcine) 5,000 unit 02/24/20 22:00 02/26/20 22:47 Heparin SUB-Q 5,000 unit Q12HR LOS Administration Hydrophilic Ointment 1 applic 02/17/20 15:12 Vaseline Lip Therapy TP Q2HR PRN Dry Lips Vasopressin 20 unit/ Sodium 101 mls @ 9.09 mls/hr 02/18/20 10:00 02/21/20 17:10 Chloride IV Infused TITR LOS Titration Protocol 0.03 UNITS/MIN Dextrose 1,000 mls @ 50 mls/hr 02/26/20 15:00 02/26/20 16:08 D5w IV 02/27/20 15:00 50 mls/hr DIRECT LOS Administration Insulin Human Regular 0 unit 02/18/20 13:00 02/27/20 06:08 Humulin R SUB-Q Not Given Q6HR LOS Protocol Magnesium Hydroxide 30 ml 02/18/20 02:31 Milk Of Magnesia PO Q4H PRN Constipation Multi-Ingred Cream/Lotion/Oil/Oint 1 applic 02/17/20 15:12 02/19/20 04:25 Artificial Tears Ophth Oint OU 1 applic Q4HR PRN Administration Dry Eye(s) Simple Syrup 15 ml 02/21/20 12:12 Simple Syrup FEEDTUBE PRN PRN Hypoglycemia Simple Syrup 30 ml 02/21/20 12:12 Simple Syrup FEEDTUBE PRN PRN Hypoglycemia Sodium Bicarbonate 325 mg 02/21/20 12:12 Sodium Bicarbonate FEEDTUBE PRN PRN For Clogged Feeding Tube Sodium Chloride 10 ml 02/18/20 10:00 02/26/20 22:47 Sodium Chloride Flush Syringe 10 Ml IV 10 ml BID LOS Administration Sodium Chloride 10 ml 02/18/20 02:31 Sodium Chloride Flush Syringe 10 Ml IV PRN PRN LINE FLUSH Nutrition/Malnutrition Assess - Dietary Evaluation Nutrition/Malnutrition Findings: Nutrition Notes Start: 02/18/20 10:34 Freq: Status: Active Protocol: Document 02/23/20 13:11 AT (Rec: 02/23/20 14:27 AT [id number]) Co-Sign 02/23/20 13:11 LM Nutrition Notes Initial or Follow up Reassessment Current Diagnosis CKD(stage I-IV),Diabetes, Sepsis,Hypertension, Hyperlipidemia Other Pertinent Diagnosis UTI, Dementia Current Diet TF Labs/Tests K 3.0 BUN 53 Cr 2.3 Ca 7.0 Mg 1.2 Pertinent Medications Levophed Height 6 ft Weight 87.2 kg [place] Body Weight (kg) 80.90 BMI 26.0 Weight Status Overweight Subjective/Other Information Follow-up on TF and Bello administration. Pt is at goal rate of 45 mL/hr; flush 200 mL q4hr. Nurse reports that pt is tolerating TF well; pt has a soft abdomen and does not have N/V. Nurse has not seen Bello and thus has not administered the supplement. Provided Bello to RN. Pt was extubated. Percent of energy/protein needs met: 98%/100% Burn Absent Trauma Absent GI Symptoms None Current % PO Negligible Minimum of two criteria No physical signs of malnutrition #2 Nutrition Diagnosis Increased nutrient needs ( specify in comment below) Comments: protein Diagnosis Progress(for reassessment Continues documentation) #1 Nutrition Diagnosis Inadequate oral intake Diagnosis Progress(for reassessment Continues documentation) Is patient on ventilator? No Is Patient Ambulatory and/or Out of Bed No REE-([facility]-confined to bed) 1979.156 Calculation Used for Recommendations [facility] Additional Notes PRO needs: 69 - 130 g (0.8 - 1 .5 g/kg) Fluid needs: 1 mL/kcal Nutrition Intervention Change Diet Order: Continue TF Nutrition Support: Nepro at 45ml/hr Flush at 200ml q4hr Kcal 1,944 Protein (gm) 87 Fluid (mL) 785 % RDI: 100 Add Supplement/Snack (indicate name/kcal Bello BID /protein ) Provides kCal: 190 Provides Protein (gm) 5 Goal #1 TF tolerance Goal #2 Meet 80% of energy and protein needs via TF. Goal #3 Pt will receive Bello BID Anticipated Discharge Needs: Unable to determine at this time. Follow-Up By: 02/29/20 Additional Comments Follow up for continued tolerance of TF and Bello administration.
[2020-02-27] MEDS: DOCUSATE SODIUM 100 MG/10 ML ORAL LIQD PO SCH ×2 (09:27→22:32)
[2020-02-27] MEDS: ASPIRIN 81 MG TAB CHEW PO SCH (09:27)
[2020-02-27] MEDS: HEPARIN 5,000 UNIT/1 ML VIAL SUB-Q SCH ×2 (09:27→22:32)
--- NOTE | 2020-02-27 13:40 | Progress Note ---
Assessment and Plan Acute hypoxic respiratory failure Septic Shock 2/2 PNA Bilateral PNA Acute Kidney Injury 2/2 ischemic ATN from septic shock, Rhabdo, on underlying CKD, no obstruction Elevated D-Dimers Plan: - Renal function reviewed, SCr level was 3.3 today, yesterday's SCr level was 3.0 - Review of labs in 2014 in [facility] did show SCr level between 1.6-1.8, most recent SCr level in [facility] prior to this admission was 2.2 on 02/14/20 - Serum Na level was 146 today - On D5W infusion at 50 ml/hr x 1 day for hypernatremia - Currently receiving free water flushes 200 ml q 4 hrs via NGT for hypernatremia - Lasix 20 mg IV x 1 dose for increased BLE swelling and coarse lung sounds on physical examination - S/p Bicarb drip - CK level was elevated so could have AMMY from contribution from Rhabdo as well - Off pressors - No hydronephrosis noted on Renal US - Urine eosinophils negative, calculated protein to cr ratio 1 g, monitor - ID on board, f/u recs - Renally dose meds - Yin Catheter: Yes - Intake= 1200 ml Output= 350 ml (Net= 850 ml) - Renal plan d/w Dr Sosa Subjective Principal diagnosis: Septic Shock Interval history: Pt seen in bed, pt doesn't follow commands. Nurse states pt is still getting free water flushes 200 ml q 4 hrs Objective - Vital Signs Vital signs: Vital Signs - 12hr 02/27/20 02/27/20 02/27/20 02:59 03:22 07:36 Temperature 99.1 F Pulse Rate 94 H 89 Pulse Rate [ 85 Anterior Bilateral Throughout] Respiratory 19 Rate Respiratory 20 Rate [Anterior Bilateral Throughout] Blood Pressure 101/61 O2 Sat by Pulse 95 Oximetry 02/27/20 02/27/20 07:37 08:42 Temperature 99.3 F Pulse Rate 76 Pulse Rate [ Anterior Bilateral Throughout] Respiratory 28 H Rate Respiratory Rate [Anterior Bilateral Throughout] Blood Pressure 102/48 O2 Sat by Pulse 95 95 Oximetry - General Appearance General appearance: other (lethargic) EENT: ATNC Respiratory: Present: Other (Lung sounds coarse bilaterally) Cardiology: regular Gastrointestinal: normoactive bowel sounds (nasogastric tube intact) Integumentary: other (dressing to both lower extremities) Neurologic: other (lethargic) Musculoskeletal: other (1+ edema to BLE) - Lab 02/27/20 06:05 02/27/20 06:05 Most recent lab results ABG pH 7.355 pH Units (7.350-7.450) 02/19/20 05:08 ABG pCO2 27.3 mm Hg 02/19/20 05:08 ABG pO2 168.2 mm Hg (80.0-90.0) H 02/19/20 05:08 ABG HCO3 14.9 mmol/L (20.0-26.0) L 02/19/20 05:08 ABG O2 Saturation 99.0 % (95.0-99.0) 02/19/20 05:08 Calcium 7.8 mg/dL (8.4-10.2) L 02/27/20 06:05 Magnesium 1.20 mg/dL (1.7-2.3) L 02/23/20 05:36 Urine Creatinine 35.2 mg/dL (0.1-20.0) H 02/18/20 17:40 Urine Sodium 104 mmol/L 02/18/20 17:40 Urine Total Protein 38 mg/dL (5-11.8) H 02/18/20 17:40 Medications & Allergies - Medications Allergies/Adverse Reactions: Allergies No Known Allergies Allergy (Unverified 05/01/15 23:41) Home Medications: Home Medications Medication Instructions Recorded Confirmed Last Taken Type Acetaminophen [Acetaminophen TAB] 650 mg PO Q8H PRN 05/02/15 02/18/20 Unknown History Albuterol Sulfate [Albuterol 0.63% 0.63 mg IH Q6H PRN 05/02/15 02/18/20 Unknown History NEBS] Aspirin [Aspirin BABY CHEW TAB] 81 mg PO DAILY 05/02/15 02/18/20 05/01/15 History AtorvaSTATin [Lipitor] 20 mg PO QHS 05/02/15 02/18/20 05/01/15 History Docusate Sodium [Colace CAP] 100 mg PO BID 05/02/15 02/18/20 05/02/15 History Insulin Lispro [HumaLOG VIAL] See Protocol SUB-Q ACHS 05/02/15 02/18/20 05/01/15 History amLODIPine 5 mg PO DAILY 05/02/15 02/18/20 05/01/15 History Active Medications: Generic Name Dose Route Start Last Admin Trade Name Freq PRN Reason Stop Dose Admin Albuterol 2.5 mg 02/26/20 09:18 Proventil IH Q4HRT PRN Shortness Of Breath Albuterol/Ipratropium 1 ampul 02/26/20 14:00 02/27/20 13:03 Duoneb *Not For Prn Use* IH Not Given TIDRT LOS Lipase/Protease/Amylase 1 each 02/21/20 12:12 Pancreaze 10,500 Unit FEEDTUBE PRN PRN For Clogged Feeding Tube Aspirin 81 mg 02/18/20 10:00 02/27/20 09:27 Baby Aspirin PO 81 mg DAILY LOS Administration Atorvastatin Calcium 20 mg 02/18/20 22:00 02/26/20 22:48 Lipitor PO 20 mg QHS LOS Administration Dextrose 50 ml 02/18/20 12:55 D50w (25gm) Syringe IV Q30MIN PRN Hypoglycemia Protocol Docusate Sodium 100 mg 02/20/20 12:00 02/27/20 09:27 Colace PO 100 mg BID LOS Administration Heparin Sodium (Porcine) 5,000 unit 02/24/20 22:00 02/27/20 09:27 Heparin SUB-Q 5,000 unit Q12HR LOS Administration Hydrophilic Ointment 1 applic 02/17/20 15:12 Vaseline Lip Therapy TP Q2HR PRN Dry Lips Dextrose 1,000 mls @ 50 mls/hr 02/26/20 15:00 02/26/20 16:08 D5w IV 02/27/20 15:00 50 mls/hr DIRECT LOS Administration Insulin Human Regular 0 unit 02/18/20 13:00 02/27/20 12:00 Humulin R SUB-Q Not Given Q6HR LOS Protocol Magnesium Hydroxide 30 ml 02/18/20 02:31 Milk Of Magnesia PO Q4H PRN Constipation Multi-Ingred Cream/Lotion/Oil/Oint 1 applic 02/17/20 15:12 02/19/20 04:25 Artificial Tears Ophth Oint OU 1 applic Q4HR PRN Administration Dry Eye(s) Simple Syrup 15 ml 02/21/20 12:12 Simple Syrup FEEDTUBE PRN PRN Hypoglycemia Simple Syrup 30 ml 02/21/20 12:12 Simple Syrup FEEDTUBE PRN PRN Hypoglycemia Sodium Bicarbonate 325 mg 02/21/20 12:12 Sodium Bicarbonate FEEDTUBE PRN PRN For Clogged Feeding Tube Sodium Chloride 10 ml 02/18/20 10:00 02/27/20 09:38 Sodium Chloride Flush Syringe 10 Ml IV 10 ml BID LOS Administration Sodium Chloride 10 ml 02/18/20 02:31 Sodium Chloride Flush Syringe 10 Ml IV PRN PRN LINE FLUSH
[2020-02-27] MEDS ORDERED: FUROSEMIDE 20 MG/2 ML INJ IV ONE (15:30)
[2020-02-28] MEDS: INSULIN REGULAR, HUMAN 100 UNIT/ML 3ML VIAL SUB-Q SCH ×4 (00:40→22:10)
[2020-02-28 05:08] LABS: Basophils % (Auto) 0.4 % (0.0-1.8); Eosinophils # (Auto) 0.2 K/mm3 (0.0-0.4); Eosinophils % (Auto) 3.4 % (0.0-4.3); Hematocrit 23.9 % (35.5-45.6); Hemoglobin 8.1 gm/dl (11.8-15.2); Lymphocytes # (Auto) 1.4 K/mm3 (1.2-5.4); Lymphocytes % (Auto) 19.4 % (13.4-35.0); Mean Corpuscular HGB Conc 34 % (32-34); Mean Corpuscular Volume 87 fl (84-94); Monocytes % (Auto) 14.1 % (0.0-7.3); Red Blood Count 2.73 M/mm3 (3.65-5.03); Red Cell Distribution Width 15.9 % (13.2-15.2)
[2020-02-28 05:09] LABS: Platelet Count 74 K/mm3 (140-440)
[2020-02-28 05:26] LABS: Calcium 7.7 mg/dL (8.4-10.2)
[2020-02-28] MEDS: IPRATROPIUM/ALBUTEROL SULFATE 3 ML AMPUL.NEB IH SCH ×3 (07:28→21:16)
--- NOTE | 2020-02-28 09:03 | Progress Note ---
Assessment and Plan Acute hypoxic respiratory failure Septic Shock 2/2 PNA Bilateral PNA Acute Kidney Injury 2/2 ischemic ATN from septic shock, Rhabdo, on underlying CKD, no obstruction Elevated D-Dimers Plan: - stable Cr and BUN, good UOP - Review of labs in 2015 in [facility] did show SCr level between 1.6-1.8, most recent SCr level in [facility] prior to this admission was 2.2 on 02/14/20 - Hypernatremia resolved - Currently receiving free water flushes 200 ml q 4 hrs via NGT for hypernatremia - S/p Bicarb drip - Off pressors - No hydronephrosis noted on Renal US - Urine eosinophils negative, calculated protein to cr ratio 1 g, monitor - ID on board, f/u recs - Renally dose meds - Yin Catheter: Yes Subjective Date of service: 02/28/20 Principal diagnosis: Septic Shock Interval history: appears comfortable Objective - Vital Signs Vital signs: Vital Signs - 12hr 02/27/20 02/27/20 02/27/20 21:06 21:29 22:00 Temperature 99.9 F H Pulse Rate 93 H Pulse Rate [ Anterior Bilateral Throughout] Respiratory 22 Rate Respiratory Rate [Anterior Bilateral Throughout] Blood Pressure 111/60 Blood Pressure [Right] O2 Sat by Pulse 100 97 Oximetry 02/27/20 02/27/20 02/28/20 23:37 23:38 00:00 Temperature 99.7 F H 98.8 F Pulse Rate 96 H 96 H Pulse Rate [ Anterior Bilateral Throughout] Respiratory 22 21 Rate Respiratory Rate [Anterior Bilateral Throughout] Blood Pressure Blood Pressure 90/50 [Right] O2 Sat by Pulse 99 98 Oximetry 02/28/20 02/28/20 02/28/20 03:12 04:56 07:28 Temperature 99.2 F Pulse Rate 90 86 Pulse Rate [ 85 Anterior Bilateral Throughout] Respiratory 22 Rate Respiratory 18 Rate [Anterior Bilateral Throughout] Blood Pressure 101/54 Blood Pressure [Right] O2 Sat by Pulse 98 Oximetry 02/28/20 02/28/20 07:29 08:02 Temperature 100.4 F H Pulse Rate 101 H Pulse Rate [ Anterior Bilateral Throughout] Respiratory 22 Rate Respiratory Rate [Anterior Bilateral Throughout] Blood Pressure 81/46 Blood Pressure [Right] O2 Sat by Pulse 94 99 Oximetry - Lab 02/28/20 04:52 02/28/20 04:52 Most recent lab results ABG pH 7.355 pH Units (7.350-7.450) 02/19/20 05:08 ABG pCO2 27.3 mm Hg 02/19/20 05:08 ABG pO2 168.2 mm Hg (80.0-90.0) H 02/19/20 05:08 ABG HCO3 14.9 mmol/L (20.0-26.0) L 02/19/20 05:08 ABG O2 Saturation 99.0 % (95.0-99.0) 02/19/20 05:08 Calcium 7.7 mg/dL (8.4-10.2) L 02/28/20 04:52 Magnesium 1.20 mg/dL (1.7-2.3) L 02/23/20 05:36 Urine Creatinine 35.2 mg/dL (0.1-20.0) H 02/18/20 17:40 Urine Sodium 104 mmol/L 02/18/20 17:40 Urine Total Protein 38 mg/dL (5-11.8) H 02/18/20 17:40 Medications & Allergies - Medications Allergies/Adverse Reactions: Allergies No Known Allergies Allergy (Unverified 05/01/15 23:41) Home Medications: Home Medications Medication Instructions Recorded Confirmed Last Taken Type Acetaminophen [Acetaminophen TAB] 650 mg PO Q8H PRN 05/02/15 02/18/20 Unknown History Albuterol Sulfate [Albuterol 0.63% 0.63 mg IH Q6H PRN 05/02/15 02/18/20 Unknown History NEBS] Aspirin [Aspirin BABY CHEW TAB] 81 mg PO DAILY 05/02/15 02/18/20 05/01/15 History AtorvaSTATin [Lipitor] 20 mg PO QHS 05/02/15 02/18/20 05/01/15 History Docusate Sodium [Colace CAP] 100 mg PO BID 05/02/15 02/18/20 05/02/15 History Insulin Lispro [HumaLOG VIAL] See Protocol SUB-Q ACHS 05/02/15 02/18/20 05/01/15 History amLODIPine 5 mg PO DAILY 05/02/15 02/18/20 05/01/15 History Active Medications: Generic Name Dose Route Start Last Admin Trade Name Freq PRN Reason Stop Dose Admin Albuterol 2.5 mg 02/26/20 09:18 Proventil IH Q4HRT PRN Shortness Of Breath Albuterol/Ipratropium 1 ampul 02/26/20 14:00 02/28/20 07:28 Duoneb *Not For Prn Use* IH 1 ampul TIDRT LOS Administration Lipase/Protease/Amylase 1 each 02/21/20 12:12 Pancrecristiane Simon 10,500 Unit FEEDTUBE PRN PRN For Clogged Feeding Tube Aspirin 81 mg 02/18/20 10:00 02/27/20 09:27 Baby Aspirin PO 81 mg DAILY LOS Administration Atorvastatin Calcium 20 mg 02/18/20 22:00 02/27/20 22:32 Lipitor PO 20 mg QHS LOS Administration Dextrose 50 ml 02/18/20 12:55 D50w (25gm) Syringe IV Q30MIN PRN Hypoglycemia Protocol Docusate Sodium 100 mg 02/20/20 12:00 02/27/20 22:32 Colace PO 100 mg BID LOS Administration Heparin Sodium (Porcine) 5,000 unit 02/24/20 22:00 02/27/20 22:32 Heparin SUB-Q 5,000 unit Q12HR LOS Administration Hydrophilic Ointment 1 applic 02/17/20 15:12 Vaseline Lip Therapy TP Q2HR PRN Dry Lips Insulin Human Regular 0 unit 02/18/20 13:00 02/28/20 05:55 Humulin R SUB-Q Not Given Q6HR LOS Protocol Magnesium Hydroxide 30 ml 02/18/20 02:31 Milk Of Magnesia PO Q4H PRN Constipation Multi-Ingred Cream/Lotion/Oil/Oint 1 applic 02/17/20 15:12 02/19/20 04:25 Artificial Tears Ophth Oint OU 1 applic Q4HR PRN Administration Dry Eye(s) Simple Syrup 15 ml 02/21/20 12:12 Simple Syrup FEEDTUBE PRN PRN Hypoglycemia Simple Syrup 30 ml 02/21/20 12:12 Simple Syrup FEEDTUBE PRN PRN Hypoglycemia Sodium Bicarbonate 325 mg 02/21/20 12:12 Sodium Bicarbonate FEEDTUBE PRN PRN For Clogged Feeding Tube Sodium Chloride 10 ml 02/18/20 10:00 02/27/20 22:33 Sodium Chloride Flush Syringe 10 Ml IV 10 ml BID LOS Administration Sodium Chloride 10 ml 02/18/20 02:31 Sodium Chloride Flush Syringe 10 Ml IV PRN PRN LINE FLUSH
--- NOTE | 2020-02-28 09:10 | Progress Note ---
Assessment and Plan 74 y/o male with known dementia, mumbles very few words at baseline if any, blank stares, admitted with altered mental status, respiratory failure, worsening renal failure and sepsis with shock no new recs for today, please see below. 1. Pulm-extubated on nasal cannula. Ordered NT suction qshift. Will continue 2. CV- stable now 3. If going to [facility], no objection pulmonary duong for discharge. Subjective Date of service: 02/28/20 Principal diagnosis: Septic Shock Interval history: No acute events. Stable on 2 liters NC with NT suction twice daily. Objective Vital Signs - 12hr 02/27/20 02/27/20 02/27/20 21:29 22:00 23:37 Temperature Pulse Rate 93 H 96 H Pulse Rate [ Anterior Bilateral Throughout] Respiratory Rate Respiratory Rate [Anterior Bilateral Throughout] Blood Pressure Blood Pressure [Right] O2 Sat by Pulse 100 97 99 Oximetry 02/27/20 02/28/20 02/28/20 23:38 00:00 03:12 Temperature 99.7 F H 98.8 F 99.2 F Pulse Rate 96 H 90 Pulse Rate [ Anterior Bilateral Throughout] Respiratory 22 21 22 Rate Respiratory Rate [Anterior Bilateral Throughout] Blood Pressure 101/54 Blood Pressure 90/50 [Right] O2 Sat by Pulse 98 98 Oximetry 02/28/20 02/28/20 02/28/20 04:56 07:28 07:29 Temperature Pulse Rate 86 Pulse Rate [ 85 Anterior Bilateral Throughout] Respiratory Rate Respiratory 18 Rate [Anterior Bilateral Throughout] Blood Pressure Blood Pressure [Right] O2 Sat by Pulse 94 Oximetry 02/28/20 08:02 Temperature 100.4 F H Pulse Rate 101 H Pulse Rate [ Anterior Bilateral Throughout] Respiratory 22 Rate Respiratory Rate [Anterior Bilateral Throughout] Blood Pressure 81/46 Blood Pressure [Right] O2 Sat by Pulse 99 Oximetry Constitutional: alert ENT: other (orally intubated critically ill on vent) Neck: supple Effort: mildly labored Ascultation: Bilateral: clear, diminished breath sounds, rhonchi (Bilateral upper airway noises) Percussion: Bilateral: not dull Cardiovascular: other (sinus tachycardia) Neurologic: unable to assess CBC and BMP: 02/28/20 04:52 02/28/20 04:52 ABG, PT/INR, D-dimer: ABG ABG pH 7.355 pH Units (7.350-7.450) 02/19/20 05:08 ABG pCO2 27.3 mm Hg 02/19/20 05:08 ABG pO2 168.2 mm Hg (80.0-90.0) H 02/19/20 05:08 ABG O2 Saturation 99.0 % (95.0-99.0) 02/19/20 05:08 PT/INR, D-dimer PT 18.6 Sec. (12.2-14.9) H 02/19/20 03:20 INR 1.53 (0.87-1.13) H 02/19/20 03:20 D-Dimer 1327.30 ng/mlDDU (0-234) H 02/20/20 17:20 Abnormal lab findings: Abnormal Labs 02/17/20 02/17/20 02/17/20 16:28 16:28 16:28 WBC 23.5 H RBC 3.07 L Hgb 9.1 L Hct 28.4 L RDW 16.8 H Plt Count Lymph % (Auto) [place] % (Auto) Eos % (Auto) [place] # Seg Neutrophils % Seg Neuts % (Manual) 84.0 H Lymphocytes % (Manual) 8.0 L Monocytes % (Manual) 8.0 H Seg Neutrophils # Seg Neutrophils # Man 19.7 H Monocytes # (Manual) 1.9 H PT 15.3 H INR 1.19 H D-Dimer Heparin Anti-Xa Level ABG pH ABG pO2 ABG HCO3 ABG O2 Saturation ABG Base Excess ABG Hemoglobin Sodium 136 L Potassium 5.4 H Chloride Carbon Dioxide 15 L BUN 91 H Creatinine 3.7 H D Glucose 120 H POC Glucose Lactic Acid Calcium 7.9 L Magnesium Ferritin AST 65 H ALT 81 H Lactate Dehydrogenase Total Creatine Kinase CK-MB (CK-2) Troponin T C-Reactive Protein NT-Pro-B Natriuret Pep Total Protein 5.4 L Albumin 2.3 L Triglycerides HDL Cholesterol Urine WBC (Auto) Urine Creatinine Urine Chloride Urine Total Protein Crossmatch 02/17/20 02/17/20 02/17/20 16:28 16:28 16:28 WBC RBC Hgb Hct RDW Plt Count Lymph % (Auto) [place] % (Auto) Eos % (Auto) [place] # Seg Neutrophils % Seg Neuts % (Manual) Lymphocytes % (Manual) Monocytes % (Manual) Seg Neutrophils # Seg Neutrophils # Man Monocytes # (Manual) PT INR D-Dimer > 40251 H Heparin Anti-Xa Level ABG pH ABG pO2 ABG HCO3 ABG O2 Saturation ABG Base Excess ABG Hemoglobin Sodium Potassium Chloride Carbon Dioxide BUN Creatinine Glucose POC Glucose Lactic Acid 2.70 H* Calcium Magnesium Ferritin AST ALT Lactate Dehydrogenase Total Creatine Kinase CK-MB (CK-2) Troponin T 0.748 H* C-Reactive Protein NT-Pro-B Natriuret Pep 1980 H Total Protein Albumin Triglycerides HDL Cholesterol Urine WBC (Auto) Urine Creatinine Urine Chloride Urine Total Protein Crossmatch 02/17/20 02/17/20 02/17/20 16:28 16:28 18:35 WBC RBC Hgb Hct RDW Plt Count Lymph % (Auto) [place] % (Auto) Eos % (Auto) [place] # Seg Neutrophils % Seg Neuts % (Manual) Lymphocytes % (Manual) Monocytes % (Manual) Seg Neutrophils # Seg Neutrophils # Man Monocytes # (Manual) PT INR D-Dimer Heparin Anti-Xa Level ABG pH 7.303 L ABG pO2 327.3 H ABG HCO3 12.5 L ABG O2 Saturation 99.5 H ABG Base Excess -12.3 L ABG Hemoglobin 11.2 L Sodium Potassium Chloride Carbon Dioxide BUN Creatinine Glucose POC Glucose Lactic Acid Calcium Magnesium Ferritin 1191.0 H AST ALT Lactate Dehydrogenase 381 H Total Creatine Kinase CK-MB (CK-2) Troponin T C-Reactive Protein 18.20 H NT-Pro-B Natriuret Pep Total Protein Albumin Triglycerides HDL Cholesterol Urine WBC (Auto) Urine Creatinine Urine Chloride Urine Total Protein Crossmatch 02/17/20 02/18/20 02/18/20 Unknown 05:20 10:10 WBC RBC Hgb Hct RDW Plt Count Lymph % (Auto) [place] % (Auto) Eos % (Auto) [place] # Seg Neutrophils % Seg Neuts % (Manual) Lymphocytes % (Manual) Monocytes % (Manual) Seg Neutrophils # Seg Neutrophils # Man Monocytes # (Manual) PT INR D-Dimer Heparin Anti-Xa Level ABG pH 7.217 L ABG pO2 165.7 H ABG HCO3 10.5 L ABG O2 Saturation ABG Base Excess -15.7 L ABG Hemoglobin 10.3 L Sodium Potassium Chloride Carbon Dioxide BUN Creatinine Glucose POC Glucose Lactic Acid Calcium Magnesium Ferritin AST ALT Lactate Dehydrogenase Total Creatine Kinase 5660 H CK-MB (CK-2) 78.0 H Troponin T 1.030 H* D C-Reactive Protein NT-Pro-B Natriuret Pep Total Protein Albumin Triglycerides 164 H HDL Cholesterol 38 L Urine WBC (Auto) 17.0 H Urine Creatinine Urine Chloride Urine Total Protein Crossmatch 02/18/20 02/18/20 02/18/20 12:14 17:32 17:40 WBC RBC Hgb Hct RDW Plt Count Lymph % (Auto) [place] % (Auto) Eos % (Auto) [place] # Seg Neutrophils % Seg Neuts % (Manual) Lymphocytes % (Manual) Monocytes % (Manual) Seg Neutrophils # Seg Neutrophils # Man Monocytes # (Manual) PT INR D-Dimer Heparin Anti-Xa Level ABG pH ABG pO2 ABG HCO3 ABG O2 Saturation ABG Base Excess ABG Hemoglobin Sodium Potassium Chloride Carbon Dioxide BUN Creatinine Glucose POC Glucose 193 H 191 H Lactic Acid Calcium Magnesium Ferritin AST ALT Lactate Dehydrogenase Total Creatine Kinase CK-MB (CK-2) Troponin T C-Reactive Protein NT-Pro-B Natriuret Pep Total Protein Albumin Triglycerides HDL Cholesterol Urine WBC (Auto) Urine Creatinine 35.2 H Urine Chloride 81.0 L Urine Total Protein 38 H Crossmatch 02/18/20 02/19/20 02/19/20 17:40 00:04 01:50 WBC RBC Hgb Hct RDW Plt Count Lymph % (Auto) [place] % (Auto) Eos % (Auto) [place] # Seg Neutrophils % Seg Neuts % (Manual) Lymphocytes % (Manual) Monocytes % (Manual) Seg Neutrophils # Seg Neutrophils # Man Monocytes # (Manual) PT INR D-Dimer Heparin Anti-Xa Level 0.18 L ABG pH ABG pO2 ABG HCO3 ABG O2 Saturation ABG Base Excess ABG Hemoglobin Sodium Potassium Chloride 111.4 H Carbon Dioxide 11 L BUN 77 H Creatinine 2.8 H Glucose 168 H POC Glucose 145 H Lactic Acid Calcium 7.2 L Magnesium Ferritin AST ALT Lactate Dehydrogenase Total Creatine Kinase CK-MB (CK-2) Troponin T C-Reactive Protein NT-Pro-B Natriuret Pep Total Protein Albumin Triglycerides HDL Cholesterol Urine WBC (Auto) Urine Creatinine Urine Chloride Urine Total Protein Crossmatch 02/19/20 02/19/20 02/19/20 03:20 04:00 05:08 WBC 17.6 H RBC 2.76 L Hgb 8.1 L Hct 25.0 L RDW 16.6 H Plt Count Lymph % (Auto) 10.5 L [place] % (Auto) Eos % (Auto) [place] # 1.2 H Seg Neutrophils % 82.1 H Seg Neuts % (Manual) Lymphocytes % (Manual) Monocytes % (Manual) Seg Neutrophils # 14.5 H Seg Neutrophils # Man Monocytes # (Manual) PT 18.6 H INR 1.53 H D-Dimer Heparin Anti-Xa Level ABG pH ABG pO2 168.2 H ABG HCO3 14.9 L ABG O2 Saturation ABG Base Excess -9.5 L ABG Hemoglobin 8.3 L Sodium Potassium Chloride Carbon Dioxide BUN Creatinine Glucose POC Glucose Lactic Acid Calcium Magnesium Ferritin AST ALT Lactate Dehydrogenase Total Creatine Kinase CK-MB (CK-2) Troponin T C-Reactive Protein NT-Pro-B Natriuret Pep Total Protein Albumin Triglycerides HDL Cholesterol Urine WBC (Auto) Urine Creatinine Urine Chloride Urine Total Protein Crossmatch 02/19/20 02/19/20 02/19/20 05:38 05:50 09:10 WBC RBC Hgb Hct RDW Plt Count Lymph % (Auto) [place] % (Auto) Eos % (Auto) [place] # Seg Neutrophils % Seg Neuts % (Manual) Lymphocytes % (Manual) Monocytes % (Manual) Seg Neutrophils # Seg Neutrophils # Man Monocytes # (Manual) PT INR D-Dimer Heparin Anti-Xa Level ABG pH ABG pO2 ABG HCO3 ABG O2 Saturation ABG Base Excess ABG Hemoglobin Sodium Potassium Chloride 111.6 H 111.9 H Carbon Dioxide 14 L 15 L BUN 69 H 68 H Creatinine 2.6 H 2.5 H Glucose 151 H 154 H POC Glucose 143 H Lactic Acid Calcium 7.4 L 7.2 L Magnesium Ferritin AST ALT Lactate Dehydrogenase Total Creatine Kinase 3552 H CK-MB (CK-2) Troponin T C-Reactive Protein NT-Pro-B Natriuret Pep Total Protein Albumin Triglycerides HDL Cholesterol Urine WBC (Auto) Urine Creatinine Urine Chloride Urine Total Protein Crossmatch 02/19/20 02/19/20 02/19/20 11:41 12:00 17:46 WBC RBC Hgb Hct RDW Plt Count Lymph % (Auto) [place] % (Auto) Eos % (Auto) [place] # Seg Neutrophils % Seg Neuts % (Manual) Lymphocytes % (Manual) Monocytes % (Manual) Seg Neutrophils # Seg Neutrophils # Man Monocytes # (Manual) PT INR D-Dimer Heparin Anti-Xa Level 0.11 L ABG pH ABG pO2 ABG HCO3 ABG O2 Saturation ABG Base Excess ABG Hemoglobin Sodium Potassium Chloride Carbon Dioxide BUN Creatinine Glucose POC Glucose 160 H 133 H Lactic Acid Calcium Magnesium Ferritin AST ALT Lactate Dehydrogenase Total Creatine Kinase CK-MB (CK-2) Troponin T C-Reactive Protein NT-Pro-B Natriuret Pep Total Protein Albumin Triglycerides HDL Cholesterol Urine WBC (Auto) Urine Creatinine Urine Chloride Urine Total Protein Crossmatch 02/19/20 02/19/20 02/20/20 20:02 23:50 04:44 WBC RBC 2.64 L Hgb 7.9 L Hct 24.1 L RDW 16.3 H Plt Count 137 L Lymph % (Auto) [place] % (Auto) Eos % (Auto) [place] # Seg Neutrophils % Seg Neuts % (Manual) Lymphocytes % (Manual) Monocytes % (Manual) Seg Neutrophils # Seg Neutrophils # Man Monocytes # (Manual) PT INR D-Dimer Heparin Anti-Xa Level 0.12 L ABG pH ABG pO2 ABG HCO3 ABG O2 Saturation ABG Base Excess ABG Hemoglobin Sodium Potassium Chloride Carbon Dioxide BUN Creatinine Glucose POC Glucose 128 H Lactic Acid Calcium Magnesium Ferritin AST ALT Lactate Dehydrogenase Total Creatine Kinase CK-MB (CK-2) Troponin T C-Reactive Protein NT-Pro-B Natriuret Pep Total Protein Albumin Triglycerides HDL Cholesterol Urine WBC (Auto) Urine Creatinine Urine Chloride Urine Total Protein Crossmatch 02/20/20 02/20/20 02/20/20 04:44 04:44 10:00 WBC RBC Hgb Hct RDW Plt Count Lymph % (Auto) [place] % (Auto) Eos % (Auto) [place] # Seg Neutrophils % Seg Neuts % (Manual) Lymphocytes % (Manual) Monocytes % (Manual) Seg Neutrophils # Seg Neutrophils # Man Monocytes # (Manual) PT INR D-Dimer Heparin Anti-Xa Level 0.15 L < 0.10 L ABG pH ABG pO2 ABG HCO3 ABG O2 Saturation ABG Base Excess ABG Hemoglobin Sodium Potassium Chloride 110.4 H Carbon Dioxide 19 L BUN 61 H Creatinine 2.4 H Glucose POC Glucose Lactic Acid Calcium 7.3 L Magnesium Ferritin AST ALT Lactate Dehydrogenase Total Creatine Kinase 2238 H CK-MB (CK-2) Troponin T C-Reactive Protein NT-Pro-B Natriuret Pep Total Protein Albumin Triglycerides HDL Cholesterol Urine WBC (Auto) Urine Creatinine Urine Chloride Urine Total Protein Crossmatch 02/20/20 02/20/20 02/20/20 12:58 17:20 17:20 WBC RBC Hgb Hct RDW Plt Count Lymph % (Auto) [place] % (Auto) Eos % (Auto) [place] # Seg Neutrophils % Seg Neuts % (Manual) Lymphocytes % (Manual) Monocytes % (Manual) Seg Neutrophils # Seg Neutrophils # Man Monocytes # (Manual) PT INR D-Dimer 1327.30 H Heparin Anti-Xa Level 0.17 L ABG pH ABG pO2 ABG HCO3 ABG O2 Saturation ABG Base Excess ABG Hemoglobin Sodium Potassium Chloride Carbon Dioxide BUN Creatinine Glucose POC Glucose 123 H Lactic Acid Calcium Magnesium Ferritin AST ALT Lactate Dehydrogenase Total Creatine Kinase CK-MB (CK-2) Troponin T C-Reactive Protein NT-Pro-B Natriuret Pep Total Protein Albumin Triglycerides HDL Cholesterol Urine WBC (Auto) Urine Creatinine Urine Chloride Urine Total Protein Crossmatch 02/20/20 02/20/20 02/20/20 17:20 18:11 23:52 WBC RBC Hgb Hct RDW Plt Count Lymph % (Auto) [place] % (Auto) Eos % (Auto) [place] # Seg Neutrophils % Seg Neuts % (Manual) Lymphocytes % (Manual) Monocytes % (Manual) Seg Neutrophils # Seg Neutrophils # Man Monocytes # (Manual) PT INR D-Dimer Heparin Anti-Xa Level ABG pH ABG pO2 ABG HCO3 ABG O2 Saturation ABG Base Excess ABG Hemoglobin Sodium Potassium Chloride Carbon Dioxide BUN Creatinine Glucose POC Glucose 156 H 153 H Lactic Acid Calcium Magnesium Ferritin AST ALT Lactate Dehydrogenase Total Creatine Kinase CK-MB (CK-2) Troponin T 0.573 H* D C-Reactive Protein NT-Pro-B Natriuret Pep Total Protein Albumin Triglycerides HDL Cholesterol Urine WBC (Auto) Urine Creatinine Urine Chloride Urine Total Protein Crossmatch 02/21/20 02/21/20 02/21/20 04:39 04:39 05:12 WBC RBC 2.35 L Hgb 6.9 L Hct 21.1 L RDW 16.2 H Plt Count 126 L Lymph % (Auto) [place] % (Auto) Eos % (Auto) [place] # Seg Neutrophils % Seg Neuts % (Manual) Lymphocytes % (Manual) Monocytes % (Manual) Seg Neutrophils # Seg Neutrophils # Man Monocytes # (Manual) PT INR D-Dimer Heparin Anti-Xa Level ABG pH ABG pO2 ABG HCO3 ABG O2 Saturation ABG Base Excess ABG Hemoglobin Sodium Potassium Chloride Carbon Dioxide BUN 54 H Creatinine 2.2 H Glucose 120 H POC Glucose 139 H Lactic Acid Calcium 6.8 L Magnesium Ferritin AST ALT Lactate Dehydrogenase Total Creatine Kinase 1488 H CK-MB (CK-2) Troponin T C-Reactive Protein NT-Pro-B Natriuret Pep Total Protein Albumin Triglycerides HDL Cholesterol Urine WBC (Auto) Urine Creatinine Urine Chloride Urine Total Protein Crossmatch 02/21/20 02/21/20 02/21/20 10:47 13:24 15:41 WBC RBC Hgb Hct RDW Plt Count Lymph % (Auto) [place] % (Auto) Eos % (Auto) [place] # Seg Neutrophils % Seg Neuts % (Manual) Lymphocytes % (Manual) Monocytes % (Manual) Seg Neutrophils # Seg Neutrophils # Man Monocytes # (Manual) PT INR D-Dimer Heparin Anti-Xa Level < 0.10 L ABG pH ABG pO2 ABG HCO3 ABG O2 Saturation ABG Base Excess ABG Hemoglobin Sodium Potassium Chloride Carbon Dioxide BUN Creatinine Glucose POC Glucose 107 H Lactic Acid Calcium Magnesium Ferritin AST ALT Lactate Dehydrogenase Total Creatine Kinase CK-MB (CK-2) Troponin T C-Reactive Protein NT-Pro-B Natriuret Pep Total Protein Albumin Triglycerides HDL Cholesterol Urine WBC (Auto) Urine Creatinine Urine Chloride Urine Total Protein Crossmatch See Detail 02/22/20 02/22/20 02/22/20 05:13 05:13 12:24 WBC RBC 3.18 L Hgb 9.5 L Hct 27.6 L D RDW 15.9 H Plt Count 114 L Lymph % (Auto) [place] % (Auto) Eos % (Auto) [place] # Seg Neutrophils % Seg Neuts % (Manual) Lymphocytes % (Manual) Monocytes % (Manual) Seg Neutrophils # Seg Neutrophils # Man Monocytes # (Manual) PT INR D-Dimer Heparin Anti-Xa Level ABG pH ABG pO2 ABG HCO3 ABG O2 Saturation ABG Base Excess ABG Hemoglobin Sodium Potassium Chloride Carbon Dioxide BUN 52 H Creatinine 2.3 H Glucose 103 H POC Glucose 122 H Lactic Acid Calcium 6.7 L Magnesium Ferritin AST ALT Lactate Dehydrogenase Total Creatine Kinase 865 H CK-MB (CK-2) Troponin T C-Reactive Protein NT-Pro-B Natriuret Pep Total Protein Albumin Triglycerides HDL Cholesterol Urine WBC (Auto) Urine Creatinine Urine Chloride Urine Total Protein Crossmatch 02/22/20 02/23/20 02/23/20 17:17 05:27 05:36 WBC RBC 3.15 L Hgb 9.4 L Hct 27.6 L RDW 15.9 H Plt Count 97 L Lymph % (Auto) [place] % (Auto) Eos % (Auto) [place] # Seg Neutrophils % Seg Neuts % (Manual) Lymphocytes % (Manual) Monocytes % (Manual) Seg Neutrophils # Seg Neutrophils # Man Monocytes # (Manual) PT INR D-Dimer Heparin Anti-Xa Level ABG pH ABG pO2 ABG HCO3 ABG O2 Saturation ABG Base Excess ABG Hemoglobin Sodium Potassium Chloride Carbon Dioxide BUN Creatinine Glucose POC Glucose 165 H 120 H Lactic Acid Calcium Magnesium Ferritin AST ALT Lactate Dehydrogenase Total Creatine Kinase CK-MB (CK-2) Troponin T C-Reactive Protein NT-Pro-B Natriuret Pep Total Protein Albumin Triglycerides HDL Cholesterol Urine WBC (Auto) Urine Creatinine Urine Chloride Urine Total Protein Crossmatch 02/23/20 02/23/20 02/23/20 05:36 05:36 11:57 WBC RBC Hgb Hct RDW Plt Count Lymph % (Auto) [place] % (Auto) Eos % (Auto) [place] # Seg Neutrophils % Seg Neuts % (Manual) Lymphocytes % (Manual) Monocytes % (Manual) Seg Neutrophils # Seg Neutrophils # Man Monocytes # (Manual) PT INR D-Dimer Heparin Anti-Xa Level ABG pH ABG pO2 ABG HCO3 ABG O2 Saturation ABG Base Excess ABG Hemoglobin Sodium Potassium 3.0 L D Chloride Carbon Dioxide BUN 53 H Creatinine 2.3 H Glucose 115 H POC Glucose 162 H Lactic Acid Calcium 7.0 L Magnesium 1.20 L Ferritin AST ALT Lactate Dehydrogenase Total Creatine Kinase 476 H CK-MB (CK-2) Troponin T C-Reactive Protein NT-Pro-B Natriuret Pep Total Protein Albumin Triglycerides HDL Cholesterol Urine WBC (Auto) Urine Creatinine Urine Chloride Urine Total Protein Crossmatch 02/24/20 02/24/20 02/24/20 05:33 05:55 05:55 WBC RBC 3.17 L Hgb 9.4 L Hct 28.2 L RDW 16.1 H Plt Count 96 L Lymph % (Auto) [place] % (Auto) Eos % (Auto) [place] # Seg Neutrophils % Seg Neuts % (Manual) Lymphocytes % (Manual) Monocytes % (Manual) Seg Neutrophils # Seg Neutrophils # Man Monocytes # (Manual) PT INR D-Dimer Heparin Anti-Xa Level ABG pH ABG pO2 ABG HCO3 ABG O2 Saturation ABG Base Excess ABG Hemoglobin Sodium 146 H Potassium Chloride 110.0 H Carbon Dioxide BUN 69 H Creatinine 2.6 H Glucose 119 H POC Glucose 156 H Lactic Acid Calcium 7.2 L Magnesium Ferritin AST ALT Lactate Dehydrogenase Total Creatine Kinase 362 H CK-MB (CK-2) Troponin T C-Reactive Protein NT-Pro-B Natriuret Pep Total Protein Albumin Triglycerides HDL Cholesterol Urine WBC (Auto) Urine Creatinine Urine Chloride Urine Total Protein Crossmatch 02/24/20 02/24/20 02/24/20 11:51 18:35 23:41 WBC RBC Hgb Hct RDW Plt Count Lymph % (Auto) [place] % (Auto) Eos % (Auto) [place] # Seg Neutrophils % Seg Neuts % (Manual) Lymphocytes % (Manual) Monocytes % (Manual) Seg Neutrophils # Seg Neutrophils # Man Monocytes # (Manual) PT INR D-Dimer Heparin Anti-Xa Level ABG pH ABG pO2 ABG HCO3 ABG O2 Saturation ABG Base Excess ABG Hemoglobin Sodium Potassium Chloride Carbon Dioxide BUN Creatinine Glucose POC Glucose 155 H 134 H 148 H Lactic Acid Calcium Magnesium Ferritin AST ALT Lactate Dehydrogenase Total Creatine Kinase CK-MB (CK-2) Troponin T C-Reactive Protein NT-Pro-B Natriuret Pep Total Protein Albumin Triglycerides HDL Cholesterol Urine WBC (Auto) Urine Creatinine Urine Chloride Urine Total Protein Crossmatch 02/25/20 02/25/20 02/25/20 05:11 10:39 11:40 WBC RBC Hgb 8.6 L Hct 25.6 L RDW Plt Count 79 L Lymph % (Auto) [place] % (Auto) Eos % (Auto) [place] # Seg Neutrophils % Seg Neuts % (Manual) Lymphocytes % (Manual) Monocytes % (Manual) Seg Neutrophils # Seg Neutrophils # Man Monocytes # (Manual) PT INR D-Dimer Heparin Anti-Xa Level ABG pH ABG pO2 ABG HCO3 ABG O2 Saturation ABG Base Excess ABG Hemoglobin Sodium Potassium Chloride 108.6 H Carbon Dioxide BUN 77 H Creatinine 2.9 H Glucose 121 H POC Glucose 119 H Lactic Acid Calcium 7.5 L Magnesium Ferritin AST ALT Lactate Dehydrogenase Total Creatine Kinase CK-MB (CK-2) Troponin T C-Reactive Protein NT-Pro-B Natriuret Pep Total Protein Albumin Triglycerides HDL Cholesterol Urine WBC (Auto) Urine Creatinine Urine Chloride Urine Total Protein Crossmatch 02/25/20 02/25/20 02/25/20 15:24 17:21 23:18 WBC RBC Hgb Hct RDW Plt Count Lymph % (Auto) [place] % (Auto) Eos % (Auto) [place] # Seg Neutrophils % Seg Neuts % (Manual) Lymphocytes % (Manual) Monocytes % (Manual) Seg Neutrophils # Seg Neutrophils # Man Monocytes # (Manual) PT INR D-Dimer Heparin Anti-Xa Level ABG pH ABG pO2 ABG HCO3 ABG O2 Saturation ABG Base Excess ABG Hemoglobin Sodium Potassium Chloride Carbon Dioxide BUN Creatinine Glucose POC Glucose 138 H 139 H 109 H Lactic Acid Calcium Magnesium Ferritin AST ALT Lactate Dehydrogenase Total Creatine Kinase CK-MB (CK-2) Troponin T C-Reactive Protein NT-Pro-B Natriuret Pep Total Protein Albumin Triglycerides HDL Cholesterol Urine WBC (Auto) Urine Creatinine Urine Chloride Urine Total Protein Crossmatch 02/26/20 02/26/20 02/26/20 05:55 12:12 13:02 WBC RBC Hgb Hct RDW Plt Count Lymph % (Auto) [place] % (Auto) Eos % (Auto) [place] # Seg Neutrophils % Seg Neuts % (Manual) Lymphocytes % (Manual) Monocytes % (Manual) Seg Neutrophils # Seg Neutrophils # Man Monocytes # (Manual) PT INR D-Dimer Heparin Anti-Xa Level ABG pH ABG pO2 ABG HCO3 ABG O2 Saturation ABG Base Excess ABG Hemoglobin Sodium 146 H Potassium Chloride 112.7 H Carbon Dioxide 20 L BUN 81 H Creatinine 3.0 H Glucose 123 H POC Glucose 111 H 128 H Lactic Acid Calcium 7.9 L Magnesium Ferritin AST ALT Lactate Dehydrogenase Total Creatine Kinase CK-MB (CK-2) Troponin T C-Reactive Protein NT-Pro-B Natriuret Pep Total Protein Albumin Triglycerides HDL Cholesterol Urine WBC (Auto) Urine Creatinine Urine Chloride Urine Total Protein Crossmatch 02/26/20 02/26/20 02/27/20 17:57 23:16 06:05 WBC RBC 2.84 L Hgb 8.5 L Hct 25.0 L RDW 15.8 H Plt Count 65 L Lymph % (Auto) [place] % (Auto) 12.1 H Eos % (Auto) 5.1 H [place] # Seg Neutrophils % Seg Neuts % (Manual) Lymphocytes % (Manual) Monocytes % (Manual) Seg Neutrophils # Seg Neutrophils # Man Monocytes # (Manual) PT INR D-Dimer Heparin Anti-Xa Level ABG pH ABG pO2 ABG HCO3 ABG O2 Saturation ABG Base Excess ABG Hemoglobin Sodium Potassium Chloride Carbon Dioxide BUN Creatinine Glucose POC Glucose 156 H 168 H Lactic Acid Calcium Magnesium Ferritin AST ALT Lactate Dehydrogenase Total Creatine Kinase CK-MB (CK-2) Troponin T C-Reactive Protein NT-Pro-B Natriuret Pep Total Protein Albumin Triglycerides HDL Cholesterol Urine WBC (Auto) Urine Creatinine Urine Chloride Urine Total Protein Crossmatch 02/27/20 02/27/20 02/27/20 06:05 11:44 19:00 WBC RBC Hgb Hct RDW Plt Count Lymph % (Auto) [place] % (Auto) Eos % (Auto) [place] # Seg Neutrophils % Seg Neuts % (Manual) Lymphocytes % (Manual) Monocytes % (Manual) Seg Neutrophils # Seg Neutrophils # Man Monocytes # (Manual) PT INR D-Dimer Heparin Anti-Xa Level ABG pH ABG pO2 ABG HCO3 ABG O2 Saturation ABG Base Excess ABG Hemoglobin Sodium 146 H Potassium Chloride 110.2 H Carbon Dioxide BUN 80 H Creatinine 3.3 H Glucose POC Glucose 116 H 134 H Lactic Acid Calcium 7.8 L Magnesium Ferritin AST ALT Lactate Dehydrogenase Total Creatine Kinase CK-MB (CK-2) Troponin T C-Reactive Protein NT-Pro-B Natriuret Pep Total Protein Albumin Triglycerides HDL Cholesterol Urine WBC (Auto) Urine Creatinine Urine Chloride Urine Total Protein Crossmatch 02/27/20 02/28/20 02/28/20 23:52 04:52 04:52 WBC RBC 2.73 L Hgb 8.1 L Hct 23.9 L RDW 15.9 H Plt Count 74 L Lymph % (Auto) [place] % (Auto) 14.1 H Eos % (Auto) [place] # 1.0 H Seg Neutrophils % Seg Neuts % (Manual) Lymphocytes % (Manual) Monocytes % (Manual) Seg Neutrophils # Seg Neutrophils # Man Monocytes # (Manual) PT INR D-Dimer Heparin Anti-Xa Level ABG pH ABG pO2 ABG HCO3 ABG O2 Saturation ABG Base Excess ABG Hemoglobin Sodium Potassium Chloride 107.5 H Carbon Dioxide BUN 81 H Creatinine 3.0 H Glucose 128 H POC Glucose 117 H Lactic Acid Calcium 7.7 L Magnesium Ferritin AST ALT Lactate Dehydrogenase Total Creatine Kinase CK-MB (CK-2) Troponin T C-Reactive Protein NT-Pro-B Natriuret Pep Total Protein Albumin Triglycerides HDL Cholesterol Urine WBC (Auto) Urine Creatinine Urine Chloride Urine Total Protein Crossmatch 02/28/20 05:52 WBC RBC Hgb Hct RDW Plt Count Lymph % (Auto) [place] % (Auto) Eos % (Auto) [place] # Seg Neutrophils % Seg Neuts % (Manual) Lymphocytes % (Manual) Monocytes % (Manual) Seg Neutrophils # Seg Neutrophils # Man Monocytes # (Manual) PT INR D-Dimer Heparin Anti-Xa Level ABG pH ABG pO2 ABG HCO3 ABG O2 Saturation ABG Base Excess ABG Hemoglobin Sodium Potassium Chloride Carbon Dioxide BUN Creatinine Glucose POC Glucose 148 H Lactic Acid Calcium Magnesium Ferritin AST ALT Lactate Dehydrogenase Total Creatine Kinase CK-MB (CK-2) Troponin T C-Reactive Protein NT-Pro-B Natriuret Pep Total Protein Albumin Triglycerides HDL Cholesterol Urine WBC (Auto) Urine Creatinine Urine Chloride Urine Total Protein Crossmatch
[2020-02-28] MEDS: DOCUSATE SODIUM 100 MG/10 ML ORAL LIQD PO SCH ×2 (10:00→22:10)
[2020-02-28] MEDS: HEPARIN 5,000 UNIT/1 ML VIAL SUB-Q SCH ×2 (10:00→22:10)
[2020-02-28] MEDS: ASPIRIN 81 MG TAB CHEW PO SCH (10:00)
--- NOTE | 2020-02-28 10:59 | Progress Note ---
Assessment and Plan Assessment and plan: --Dysphagia; oropharyngeal Oropharyngeal dysphagia per speech therapist Follow speech therapist evaluation and recommendations If abnormal possible PEG placement --Sepsis; right pneumonia/HCAP s/p Vanco and cefepime , Monitor off antibiotics ID following follow cultures, supportive care ID,Pulm following --New episodes of fever; Patient already completed course of antibiotics for sepsis/pneumonia Check new set of blood cultures, monitor off antibiotics ID following --Bilateral pneumonia; present on initial admission As noted above. COVID markers elevated Ferritin 1191. Ddmer >10,000. CRP 18. LDH 381. Recent sputum cx with PMDR Proteus, MRSA. H flu. MRSA PCR positive. --elevated D-dimers More than 10,000, V/Q scan low probability for PE lower extremity venous Doppler,neg DVT dc heparin Drip, prophylactic anticoagulation --Rhabdomyolysis; Continue IV fluids, input output monitoring, CK levels trending down CK [id number] We will monitor renal function --COVID-19 test negative x2 during last admission Test negative during this admission 02/18/2020 However patient has very high levels of inflammatory markers ID consulted, trend the markers --Acute resp failure with hypoxia/extubated 02/19/2020 on nasal cannula oxygen, saturating well Very high ddimer suspect PE post COVID. --Acute kidney injury on chronic kidney disease Secondary to ATN, gentle hydration Avoid nephrotoxins, monitor renal function Nephrology following -- DVT prophylaxis SCD, Heparin ,renal dose PT OT, DC planning 02/24/2020. Patient extubated yesterday and tolerated nasal cannula. Patient's baseline creatinine appears to be 1.6-1.8 2014. Continue IV fluid hydration per nephrology recommendations. CK level was elevated. Therefore, etiology may be from acute kidney injury and rhabdomyolysis. Renal ultrasound revealed chronic medical renal disease and no hydronephrosis. Urine eosinophils negative. Awaiting placement. I discussed the case with case management. 02/25/2020. Patient currently with nasogastric tube and tube feedings at 45 cc an hour. Speech evaluation for swallowing. Patient currently with nasal cannula 3 L O2. Creatinine remains elevated. Recheck BMP. Continue free water flushes 200 ml q 4 hrs via NGT for hypernatremia. Urine eosinophils negative, calculated protein to cr ratio 1 g, monitor. Continue vancomycin and cefepime per ID recommendations. 02/26/2020. Speech therapy evaluation reports oropharyngeal dysphagia. Patient will likely need PEG tube placement. Attempted to call family renetta Marquez to discuss possible PEG placement, no answer. Patient with adequate urine output but creatinine still not improved significantly. Albumin 25% 100 mls q6H X 3 doses. Continue per nephrology recommendations. Antibiotics discontinued yesterday per ID recommendations. 02/27/2020. Speech therapy evaluation reports oropharyngeal dysphagia. Patient will likely need PEG tube placement. Attempted to call family Mica Marquez to discuss possible PEG placement, no answer. We will need case management for assistance. Continue per ID and nephrology recommendations. 02/27; follow speech and swallow evaluation, possible PEG placement, consult GI once family is agreeable, unable to reach family History Interval history: I have seen and examined the patient at the bedside today afternoon Patient's chart and medications reviewed Patient is critically ill looking cachectic Malnourished Noncommunicative Vital signs noted Hospitalist Physical - Constitutional Vitals: Temp Pulse Resp BP Pulse Ox 100.4 F H 101 H 22 81/46 99 02/28/20 08:02 02/28/20 08:02 02/28/20 08:02 02/28/20 08:02 02/28/20 08:02 General appearance: Present: mild distress, well-nourished, other (confused, chronically ill looking) - EENT Eyes: Present: PERRL, EOM intact - Neck Neck: Present: supple, normal ROM - Respiratory Respiratory effort: normal Respiratory: bilateral: diminished, negative: rales, rhonchi - Cardiovascular Rhythm: regular Heart Sounds: Present: S1 & S2 - Extremities Extremities: no ischemia, No edema - Abdominal General gastrointestinal: soft, non-tender, non-distended, normal bowel sounds - Integumentary Integumentary: Present: clear, warm - Psychiatric Psychiatric: other (Noncommunicative) - Neurologic Neurologic: other (Noncommunicative) HEART Score - HEART Score Troponin: Troponin T 0.573 ng/mL (0.00-0.029) H* D 02/20/20 17:20 Results - Labs CBC & Chem 7: 02/28/20 04:52 02/28/20 04:52 Labs: Laboratory Last Values WBC 7.1 K/mm3 (4.5-11.0) 02/28/20 04:52 RBC 2.73 M/mm3 (3.65-5.03) L 02/28/20 04:52 Hgb 8.1 gm/dl (11.8-15.2) L 02/28/20 04:52 Hct 23.9 % (35.5-45.6) L 02/28/20 04:52 MCV 87 fl (84-94) 02/28/20 04:52 MCH 30 pg (28-32) 02/28/20 04:52 MCHC 34 % (32-34) 02/28/20 04:52 RDW 15.9 % (13.2-15.2) H 02/28/20 04:52 Plt Count 74 K/mm3 (140-440) L 02/28/20 04:52 Lymph % (Auto) 19.4 % (13.4-35.0) 02/28/20 04:52 [place] % (Auto) 14.1 % (0.0-7.3) H 02/28/20 04:52 Eos % (Auto) 3.4 % (0.0-4.3) 02/28/20 04:52 Baso % (Auto) 0.4 % (0.0-1.8) 02/28/20 04:52 Lymph # 1.4 K/mm3 (1.2-5.4) 02/28/20 04:52 [place] # 1.0 K/mm3 (0.0-0.8) H 02/28/20 04:52 Eos # 0.2 K/mm3 (0.0-0.4) 02/28/20 04:52 Baso # 0.0 K/mm3 (0.0-0.1) 02/28/20 04:52 Add Manual Diff Complete 02/17/20 16:28 Total Counted 100 02/17/20 16:28 Seg Neutrophils % 62.7 % (40.0-70.0) 02/28/20 04:52 Seg Neuts % (Manual) 84.0 % (40.0-70.0) H 02/17/20 16:28 Band Neutrophils % 0 % 02/17/20 16:28 Lymphocytes % (Manual) 8.0 % (13.4-35.0) L 02/17/20 16:28 Reactive Lymphs % (Man) 0 % 02/17/20 16:28 Monocytes % (Manual) 8.0 % (0.0-7.3) H 02/17/20 16:28 Eosinophils % (Manual) 0 % (0.0-4.3) 02/17/20 16:28 Basophils % (Manual) 0 % (0.0-1.8) 02/17/20 16:28 Metamyelocytes % 0 % 02/17/20 16:28 Myelocytes % 0 % 02/17/20 16:28 Promyelocytes % 0 % 02/17/20 16:28 Blast Cells % 0 % 02/17/20 16:28 Nucleated RBC % Not Reportable 02/17/20 16:28 Seg Neutrophils # 4.4 K/mm3 (1.8-7.7) 02/28/20 04:52 Seg Neutrophils # Man 19.7 K/mm3 (1.8-7.7) H 02/17/20 16:28 Band Neutrophils # 0.0 K/mm3 02/17/20 16:28 Lymphocytes # (Manual) 1.9 K/mm3 (1.2-5.4) 02/17/20 16:28 Abs React Lymphs (Man) 0.0 K/mm3 02/17/20 16:28 Monocytes # (Manual) 1.9 K/mm3 (0.0-0.8) H 02/17/20 16:28 Eosinophils # (Manual) 0.0 K/mm3 (0.0-0.4) 02/17/20 16:28 Basophils # (Manual) 0.0 K/mm3 (0.0-0.1) 02/17/20 16:28 Metamyelocytes # 0.0 K/mm3 02/17/20 16:28 Myelocytes # 0.0 K/mm3 02/17/20 16:28 Promyelocytes # 0.0 K/mm3 02/17/20 16:28 Blast Cells # 0.0 K/mm3 02/17/20 16:28 WBC Morphology Not Reportable 02/17/20 16:28 Hypersegmented Neuts Not Reportable 02/17/20 16:28 Hyposegmented Neuts Not Reportable 02/17/20 16:28 Hypogranular Neuts Not Reportable 02/17/20 16:28 Smudge Cells Not Reportable 02/17/20 16:28 Toxic Granulation Not Reportable 02/17/20 16:28 Toxic Vacuolation Not Reportable 02/17/20 16:28 Dohle Bodies Not Reportable 02/17/20 16:28 Pelger-Huet Anomaly Not Reportable 02/17/20 16:28 Krys Rods Not Reportable 02/17/20 16:28 Platelet Estimate Not Reportable 02/17/20 16:28 Clumped Platelets Not Reportable 02/17/20 16:28 Plt Clumps, EDTA Not Reportable 02/17/20 16:28 Large Platelets Not Reportable 02/17/20 16:28 Giant Platelets Not Reportable 02/17/20 16:28 Platelet Satelliting Not Reportable 02/17/20 16:28 Plt Morphology Comment Not Reportable 02/17/20 16:28 RBC Morphology Normal 02/17/20 16:28 Dimorphic RBCs Not Reportable 02/17/20 16:28 Polychromasia Not Reportable 02/17/20 16:28 Hypochromasia Not Reportable 02/17/20 16:28 Poikilocytosis Not Reportable 02/17/20 16:28 Anisocytosis Not Reportable 02/17/20 16:28 Microcytosis Not Reportable 02/17/20 16:28 Macrocytosis Not Reportable 02/17/20 16:28 Spherocytes Not Reportable 02/17/20 16:28 Pappenheimer Bodies Not Reportable 02/17/20 16:28 Sickle Cells Not Reportable 02/17/20 16:28 Target Cells Not Reportable 02/17/20 16:28 Tear Drop Cells Not Reportable 02/17/20 16:28 Ovalocytes Not Reportable 02/17/20 16:28 Helmet Cells Not Reportable 02/17/20 16:28 Lazo-[place] Bodies Not Reportable 02/17/20 16:28 Henryetta Rings Not Reportable 02/17/20 16:28 Christo Cells Not Reportable 02/17/20 16:28 Bite Cells Not Reportable 02/17/20 16:28 Crenated Cell Not Reportable 02/17/20 16:28 Elliptocytes Not Reportable 02/17/20 16:28 Acanthocytes (Spur) Not Reportable 02/17/20 16:28 Rouleaux Not Reportable 02/17/20 16:28 Hemoglobin C Crystals Not Reportable 02/17/20 16:28 Schistocytes Not Reportable 02/17/20 16:28 Malaria parasites Not Reportable 02/17/20 16:28 Keron Bodies Not Reportable 02/17/20 16:28 Hem Pathologist Commnt No 02/17/20 16:28 PT 18.6 Sec. (12.2-14.9) H 02/19/20 03:20 INR 1.53 (0.87-1.13) H 02/19/20 03:20 APTT 26.8 Sec. (24.2-36.6) 02/17/20 16:28 D-Dimer 1327.30 ng/mlDDU (0-234) H 02/20/20 17:20 Heparin Anti-Xa Level < 0.10 U.I./ml (0.3-0.7) L 02/21/20 15:41 ABG pH 7.355 pH Units (7.350-7.450) 02/19/20 05:08 ABG pCO2 27.3 mm Hg 02/19/20 05:08 ABG pO2 168.2 mm Hg (80.0-90.0) H 02/19/20 05:08 ABG HCO3 14.9 mmol/L (20.0-26.0) L 02/19/20 05:08 ABG O2 Saturation 99.0 % (95.0-99.0) 02/19/20 05:08 ABG O2 Content 11.7 (0.0-44) 02/19/20 05:08 ABG Base Excess -9.5 mmol/L (-2.0-3.0) L 02/19/20 05:08 ABG Hemoglobin 8.3 gm/dl (14.0-18.0) L 02/19/20 05:08 ABG Carboxyhemoglobin 1.2 % (0.0-5.0) 02/19/20 05:08 ABG Methemoglobin 0.7 % (0.0-1.5) 02/19/20 05:08 Oxyhemoglobin 97.2 % (95.0-99.0) 02/19/20 05:08 FiO2 40 % 02/19/20 05:08 Sodium 143 mmol/L (137-145) 02/28/20 04:52 Potassium 3.7 mmol/L (3.6-5.0) 02/28/20 04:52 Chloride 107.5 mmol/L (98-107) H 02/28/20 04:52 Carbon Dioxide 24 mmol/L (22-30) 02/28/20 04:52 Anion Gap 15 mmol/L 02/28/20 04:52 BUN 81 mg/dL (9-20) H 02/28/20 04:52 Creatinine 3.0 mg/dL (0.8-1.3) H 02/28/20 04:52 Estimated GFR 25 ml/min 02/28/20 04:52 BUN/Creatinine Ratio 27 % 02/28/20 04:52 Glucose 128 mg/dL (75-100) H 02/28/20 04:52 POC Glucose 148 (70-105) H 02/28/20 05:52 Lactic Acid 1.90 mmol/L (0.7-2.0) 02/17/20 22:56 Calcium 7.7 mg/dL (8.4-10.2) L 02/28/20 04:52 Magnesium 1.20 mg/dL (1.7-2.3) L 02/23/20 05:36 Ferritin 1191.0 ng/mL (30.0-300.0) H 02/17/20 16:28 Total Bilirubin 0.50 mg/dL (0.1-1.2) 02/17/20 16:28 AST 65 units/L (5-40) H 02/17/20 16:28 ALT 81 units/L (7-56) H 02/17/20 16:28 Alkaline Phosphatase 101 units/L (35-129) 02/17/20 16:28 Lactate Dehydrogenase 381 units/L (91-180) H 02/17/20 16:28 Total Creatine Kinase 362 units/L (55-170) H 02/24/20 05:55 CK-MB (CK-2) 78.0 ng/mL (0.0-4.0) H 02/18/20 10:10 CK-MB (CK-2) Rel Index 1.3 (0-4) 02/18/20 10:10 Troponin T 0.573 ng/mL (0.00-0.029) H* D 02/20/20 17:20 C-Reactive Protein 18.20 mg/dL (0.00-1.30) H 02/17/20 16:28 NT-Pro-B Natriuret Pep 1980 pg/mL (0-900) H 02/17/20 16:28 Total Protein 5.4 g/dL (6.3-8.2) L 02/17/20 16:28 Albumin 2.3 g/dL (3.9-5) L 02/17/20 16:28 Albumin/Globulin Ratio 0.7 % 02/17/20 16:28 Triglycerides 164 mg/dL (2-149) H 02/18/20 10:10 Cholesterol 133 mg/dL (50-199) 02/18/20 10:10 LDL Cholesterol Direct 71 mg/dL (50-130) 02/18/20 10:10 HDL Cholesterol 38 mg/dL (40-59) L 02/18/20 10:10 Cholesterol/HDL Ratio 3.50 % 02/18/20 10:10 Procalcitonin 6.74 ng/mL (<0.15) 02/17/20 16:28 TSH 3.490 mlU/mL (0.270-4.200) 02/17/20 16:28 Urine Color Yellow (Yellow) 02/17/20 Unknown Urine Turbidity Slightly-cloudy (Clear) 02/17/20 Unknown Urine pH 5.0 (5.0-7.0) 02/17/20 Unknown Ur Specific [place] 1.010 (1.003-1.030) 02/17/20 Unknown Urine Protein 30 mg/dl mg/dL (Negative) 02/17/20 Unknown Urine Glucose (UA) Neg mg/dL (Negative) 02/17/20 Unknown Urine Ketones Neg mg/dL (Negative) 02/17/20 Unknown Urine Blood Mod (Negative) 02/17/20 Unknown Urine Nitrite Neg (Negative) 02/17/20 Unknown Urine Bilirubin Neg (Negative) 02/17/20 Unknown Urine Urobilinogen < 2.0 mg/dL (<2.0) 02/17/20 Unknown Ur Leukocyte Esterase Mod (Negative) 02/17/20 Unknown Urine WBC (Auto) 17.0 /HPF (0.0-6.0) H 02/17/20 Unknown Urine RBC (Auto) 17.0 /HPF (0.0-6.0) 02/17/20 Unknown U Epithel Cells (Auto) 4.0 /HPF (0-13.0) 02/17/20 Unknown Urine Bacteria (Auto) 1+ /HPF (Negative) 02/17/20 Unknown Urine Yeast (Budding) 2+ /HPF 02/17/20 Unknown Urine Eosinophils None seen (None Seen) 02/18/20 17:40 Urine Creatinine 35.2 mg/dL (0.1-20.0) H 02/18/20 17:40 Urine Microalbumin 5.9 mg/dL (0.1-34.0) 02/18/20 17:40 Microalb/Creat Ratio 167.6 ug/mg 02/18/20 17:40 Urine Sodium 104 mmol/L 02/18/20 17:40 Urine Chloride 81.0 mmolL (110-250) L 02/18/20 17:40 Urine Total Protein 38 mg/dL (5-11.8) H 02/18/20 17:40 Nasal Screen MRSA (PCR) Positive (Negative) 02/18/20 17:40 Random Vancomycin 15.6 ug/mL (0-40.0) 02/23/20 05:36 Coronavirus (PCR) Negative (Negative) 02/23/20 09:59 Blood Type B NEGATIVE 02/21/20 10:47 Antibody Screen Negative 02/21/20 10:47 Crossmatch See Detail 02/21/20 10:47 - Diagnostic Impressions Diagnostic Impressions: Echocardiogram 02/19/20 15:05 Transthoracic Echocardiogram Indication: NSTEMI BP: 95/50 HR: 107 Conclusions *Global left ventricular systolic function is at the lower limits of normal. *The estimated ejection fraction is 45-50%. *Abnormal left ventricular diastolic filling is observed, consistent with impaired relaxation. *There is evidence of mild pulmonary hypertension. *There is no pericardial effusion. Findings Left Ventricle: The left ventricular chamber size is normal. Global left ventricular systolic function is at the lower limits of normal. The estimated ejection fraction is 45-50%. Abnormal left ventricular diastolic filling is observed, consistent with impaired relaxation. Left Atrium: The left atrial chamber size is normal. Right Ventricle: The right ventricular cavity size is normal. Right Atrium: The right atrial cavity size is normal. Aortic Valve: Mild aortic leaflet calcification is visualized. There is trace of aortic regurgitation. Mitral Valve: Mild mitral leaflet calcification is visualized. There is no evidence of mitral regurgitation. Tricuspid Valve: The tricuspid valve leaflets are normal. There is mild tricuspid regurgitation. The right ventricular systolic pressure is calculated at 40 mmHg. There is evidence of mild pulmonary hypertension. Pericardium: There is no pericardial effusion. Aorta: The aorta appears normal. Venous: The inferior vena cava appears normal. Measurements Chambers 2D Name Value Normal Range IVSd (2D) 1.09 cm (0.6 - 1.1) LVPWd (2D) 1 cm (0.6 - 1.1) LVIDd (2D) 3.55 cm (3.7 - 5.6) LVIDs (2D) 3 cm (2 - 3.8) LV FS (2D) 15.53 % - Ao root diameter (2D) 3.26 cm (2 - 3.7) Volumes/Mass Name Value Normal Range LA ESV SP 4CH (A/L) 17.3 ml - LA ESV SP 2CH (A/L) 18.3 ml - LA ESV BP (A/L) 19.14 ml - LA ESV BP (A/L) index 9.38 ml/m2 - LA ESV SP 4CH (MOD) 15.02 ml - LA ESV SP 2CH (MOD) 17.03 ml - LA ESV BP (MOD) 17.14 ml - LA ESV BP (MOD) index 8.4 ml/m2 - Diastolic/Systolic Function Name Value Normal Range MV E-wave Vmax 0.56 m/sec - MV deceleration time 197.94 msec - MV A-wave Vmax 1.36 m/sec - MV E:A ratio 0.41 ratio - Aortic Valve Name Value Normal Range AV Vmax 2.3 m/sec - AV VTI 33.77 cm - AV peak gradient 22.91 mmHg - AV mean gradient 12.27 mmHg - LVOT diameter 2.08 cm - LVOT Vmax 0.84 m/sec - LVOT VTI 14.82 cm - LVOT peak gradient 2.82 mmHg - LVOT mean gradient 2 mmHg - SV LVOT 50.44 ml - KALYAN (continuity Vmax) 1.24 cm2 - KALYAN (continuity VTI) 1.49 cm2 - AR PHT 460.84 msec - AR peak gradient 52.84 mmHg - Tricuspid Valve Name Value Normal Range TR Vmax 3.03 m/sec - TR peak gradient 37 mmHg - RAP 3 mmHg - RVSP 40 mmHg - Pulmonic Valve/Qp:Qs Name Value Normal Range PV acceleration time 106.57 msec - Yin/IV: Voiding Method Indwelling Catheter IV Catheter Type [Right Hand] INT / Saline Lock IV Catheter Type [Left Upper INT / Saline Lock arm] IV Catheter Type [Right Triple Lumen Cath Femoral] IV Catheter Type [Right INT / Saline Lock Antecubital] Active Medications - Current Medications Current Medications: Generic Name Dose Route Start Last Admin Trade Name Freq PRN Reason Stop Dose Admin Albuterol 2.5 mg 02/26/20 09:18 Proventil IH Q4HRT PRN Shortness Of Breath Albuterol/Ipratropium 1 ampul 02/26/20 14:00 02/28/20 07:28 Duoneb *Not For Prn Use* IH 1 ampul TIDRT LOS Administration Lipase/Protease/Amylase 1 each 02/21/20 12:12 Pancreaze 10,500 Unit FEEDTUBE PRN PRN For Clogged Feeding Tube Aspirin 81 mg 02/18/20 10:00 02/28/20 10:00 Baby Aspirin PO 81 mg DAILY LOS Administration Atorvastatin Calcium 20 mg 02/18/20 22:00 02/27/20 22:32 Lipitor PO 20 mg QHS LOS Administration Dextrose 50 ml 02/18/20 12:55 D50w (25gm) Syringe IV Q30MIN PRN Hypoglycemia Protocol Docusate Sodium 100 mg 02/20/20 12:00 02/28/20 10:00 Colace PO 100 mg BID LOS Administration Heparin Sodium (Porcine) 5,000 unit 02/24/20 22:00 02/28/20 10:00 Heparin SUB-Q 5,000 unit Q12HR LOS Administration Hydrophilic Ointment 1 applic 02/17/20 15:12 Vaseline Lip Therapy TP Q2HR PRN Dry Lips Insulin Human Regular 0 unit 02/18/20 13:00 02/28/20 05:55 Humulin R SUB-Q Not Given Q6HR LOS Protocol Magnesium Hydroxide 30 ml 02/18/20 02:31 Milk Of Magnesia PO Q4H PRN Constipation Multi-Ingred Cream/Lotion/Oil/Oint 1 applic 02/17/20 15:12 02/19/20 04:25 Artificial Tears Ophth Oint OU 1 applic Q4HR PRN Administration Dry Eye(s) Simple Syrup 15 ml 02/21/20 12:12 Simple Syrup FEEDTUBE PRN PRN Hypoglycemia Simple Syrup 30 ml 02/21/20 12:12 Simple Syrup FEEDTUBE PRN PRN Hypoglycemia Sodium Bicarbonate 325 mg 02/21/20 12:12 Sodium Bicarbonate FEEDTUBE PRN PRN For Clogged Feeding Tube Sodium Chloride 10 ml 02/18/20 10:00 02/28/20 10:01 Sodium Chloride Flush Syringe 10 Ml IV 10 ml BID LOS Administration Sodium Chloride 10 ml 02/18/20 02:31 Sodium Chloride Flush Syringe 10 Ml IV PRN PRN LINE FLUSH Nutrition/Malnutrition Assess - Dietary Evaluation Nutrition/Malnutrition Findings: Nutrition Notes Start: 02/18/20 10:34 Freq: Status: Active Protocol: Document 02/23/20 13:11 AT (Rec: 02/23/20 14:27 AT [facility]-[id number]) Co-Sign 02/23/20 13:11 LM Nutrition Notes Initial or Follow up Reassessment Current Diagnosis CKD(stage I-IV),Diabetes, Sepsis,Hypertension, Hyperlipidemia Other Pertinent Diagnosis UTI, Dementia Current Diet TF Labs/Tests K 3.0 BUN 53 Cr 2.3 Ca 7.0 Mg 1.2 Pertinent Medications Levophed Height 6 ft Weight 87.2 kg [place] Body Weight (kg) 80.90 BMI 26.0 Weight Status Overweight Subjective/Other Information Follow-up on TF and Bello administration. Pt is at goal rate of 45 mL/hr; flush 200 mL q4hr. Nurse reports that pt is tolerating TF well; pt has a soft abdomen and does not have N/V. Nurse has not seen Bello and thus has not administered the supplement. Provided Bello to RN. Pt was extubated. Percent of energy/protein needs met: 98%/100% Burn Absent Trauma Absent GI Symptoms None Current % PO Negligible Minimum of two criteria No physical signs of malnutrition #2 Nutrition Diagnosis Increased nutrient needs ( specify in comment below) Comments: protein Diagnosis Progress(for reassessment Continues documentation) #1 Nutrition Diagnosis Inadequate oral intake Diagnosis Progress(for reassessment Continues documentation) Is patient on ventilator? No Is Patient Ambulatory and/or Out of Bed No REE-([facility]-confined to bed) [phone] Calculation Used for Recommendations Lisandra Bah Additional Notes PRO needs: 69 - 130 g (0.8 - 1 .5 g/kg) Fluid needs: 1 mL/kcal Nutrition Intervention Change Diet Order: Continue TF Nutrition Support: Nepro at 45ml/hr Flush at 200ml q4hr Kcal 1,944 Protein (gm) 87 Fluid (mL) 785 % RDI: 100 Add Supplement/Snack (indicate name/kcal Bello BID /protein ) Provides kCal: 190 Provides Protein (gm) 5 Goal #1 TF tolerance Goal #2 Meet 80% of energy and protein needs via TF. Goal #3 Pt will receive Bello BID Anticipated Discharge Needs: Unable to determine at this time. Follow-Up By: 02/29/20 Additional Comments Follow up for continued tolerance of TF and Bello administration.
--- NOTE | 2020-02-28 12:12 | Progress Note ---
Assessment and Plan Cultures: Coronavirus PCR 02/05/2020: Negative Coronavirus PCR 02/10/2020: Negative Coronavirus PCR 02/18/2020: Negative MRSA nasal PCR 02/05/2020: Positive 02/04/2020 blood culture: No growth 02/04/2020 tracheal aspirate: Proteus, Hemophilus, MRSA 02/14/2020 blood culture: No growth 02/17/2020 tracheal aspirate: normal resp demetrius 02/17/2020 blood culture: No growth today A/P: 74 y/o male with history of CVA with left hemiparesis, diabetes mellitus, hypertension, dyslipidemia, dementia and peripheral vascular disease, from [facility], recent COVID, admitted on due to AMS and low O2 sats: #Severe sepsis with septic shock: on 2 pressors, elevated lactate; source likely pneumonia/suspect PE post COVID. #Bilateral pneumonia: likely bacterial pneumonia. COVID markers elevated Charmaine tin 1191. Ddmer >10,000. CRP 18. LDH 381. Recent sputum cx with PMDR Proteus, MRSA. H flu. MRSA PCR positive. Elevated procal however possible due to renal failure #Acute resp failure: intubated. Very high ddimer suspect PE post COVID. #Elevated LFTs: from sepsis #AMMY on CKD: renally adjusted meds, required HD during previous admission Recs: -Ordered new blood cultures, procalcitonin with new fevers off antibiotics. -Agree with full anticoagulation High risk mortality / guarded prognosis consider palliative care Edel Saenz MD [facility] ([facility]) M: [phone] O: [phone] F: [phone] Subjective Date of service: 02/28/20 Principal diagnosis: Septic Shock Interval history: Febrile today to 100.4. White count normal. Objective - Exam Narrative Exam: Constitutional: Extubated on nasal cannula Head, Ears, Nose: Normocephalic, atraumatic. External ears, nose normal Oral: Limited Eyes: Conjunctivae/corneas clear. No icterus. No ptosis. Neck: limited Cardiovascular: tachy Respiratory: limited GI: limited Musculoskeletal: limited Skin: limited Hem/Lymphatic: limited Psych: limited Neurological: limited - Constitutional Vitals: Vital Signs Temp Pulse Resp BP Pulse Ox 100.4 F H 101 H 22 81/46 99 02/28/20 08:02 02/28/20 08:02 02/28/20 08:02 02/28/20 08:02 02/28/20 08:02 Temperature -Last 24 Hours Temperature 100.4 F Temperature 99.2 F Temperature 98.8 F Temperature 99.7 F Temperature 99.9 F Temperature 99.2 F - Labs CBC & Chem 7: 02/28/20 04:52 02/28/20 04:52 Labs: Abnormal lab results 02/27/20 02/27/20 02/28/20 Range/Units 19:00 23:52 04:52 RBC 2.73 L (3.65-5.03) M/mm3 Hgb 8.1 L (11.8-15.2) gm/dl Hct 23.9 L (35.5-45.6) % RDW 15.9 H (13.2-15.2) % Plt Count 74 L (140-440) K/mm3 [place] % (Auto) 14.1 H (0.0-7.3) % [place] # 1.0 H (0.0-0.8) K/mm3 Chloride (98-107) mmol/L BUN (9-20) mg/dL Creatinine (0.8-1.3) mg/dL Glucose (75-100) mg/dL POC Glucose 134 H 117 H (70-105) Calcium (8.4-10.2) mg/dL 02/28/20 02/28/20 02/28/20 Range/Units 04:52 05:52 12:19 RBC (3.65-5.03) M/mm3 Hgb (11.8-15.2) gm/dl Hct (35.5-45.6) % RDW (13.2-15.2) % Plt Count (140-440) K/mm3 [place] % (Auto) (0.0-7.3) % [place] # (0.0-0.8) K/mm3 Chloride 107.5 H (98-107) mmol/L BUN 81 H (9-20) mg/dL Creatinine 3.0 H (0.8-1.3) mg/dL Glucose 128 H (75-100) mg/dL POC Glucose 148 H 152 H (70-105) Calcium 7.7 L (8.4-10.2) mg/dL
[2020-02-29] MEDS: INSULIN REGULAR, HUMAN 100 UNIT/ML 3ML VIAL SUB-Q SCH ×4 (01:28→18:39)
[2020-02-29 06:39] LABS: Basophils % (Auto) 0.4 % (0.0-1.8); Eosinophils # (Auto) 0.2 K/mm3 (0.0-0.4); Eosinophils % (Auto) 2.6 % (0.0-4.3); Hemoglobin 8.2 gm/dl (11.8-15.2); Lymphocytes # (Auto) 1.7 K/mm3 (1.2-5.4); Lymphocytes % (Auto) 20.2 % (13.4-35.0); Mean Corpuscular HGB Conc 34 % (32-34); Mean Corpuscular Volume 88 fl (84-94); Monocytes # (Auto) 1.2 K/mm3 (0.0-0.8); Monocytes % (Auto) 13.9 % (0.0-7.3); Red Blood Count 2.73 M/mm3 (3.65-5.03); Red Cell Distribution Width 16.4 % (13.2-15.2)
[2020-02-29 06:40] LABS: Platelet Count 88 K/mm3 (140-440)
[2020-02-29 06:49] LABS: Calcium 7.7 mg/dL (8.4-10.2)
[2020-02-29] MEDS: IPRATROPIUM/ALBUTEROL SULFATE 3 ML AMPUL.NEB IH SCH ×3 (07:55→20:46)
[2020-02-29] MEDS: ASPIRIN 81 MG TAB CHEW PO SCH (10:00)
[2020-02-29] MEDS: DOCUSATE SODIUM 100 MG/10 ML ORAL LIQD PO SCH ×2 (10:00→21:12)
[2020-02-29] MEDS: HEPARIN 5,000 UNIT/1 ML VIAL SUB-Q SCH ×2 (10:37→21:12)
--- NOTE | 2020-02-29 12:02 | Event Note ---
Date: 02/29/20 I called and spoke with patient's sister /next of kin . Mica Marquez and discussed patient's condition, poor prognosis CODE STATUS in detail, answered all her questions, she requested DNR status in the event of cardiac arrest However wants all the other treatment to be continued. Patient's sister confirmed the request with patient's nurse Ms. Freire. Patient DNR status
--- NOTE | 2020-02-29 12:56 | Progress Note ---
Assessment and Plan 74 y/o male with known dementia, mumbles very few words at baseline if any, blank stares, admitted with altered mental status, respiratory failure, worsening renal failure and sepsis with shock no new recs for today, please see below. 1. Pulm-extubated on nasal cannula. Ordered NT suction qshift. Will continue 2. CV- stable now 3. If going to [facility], no objection pulmonary duong for discharge. Subjective Date of service: 02/29/20 Principal diagnosis: Septic Shock Interval history: Patient is now a DNR per event note from [facility]. Objective Vital Signs - 12hr 02/29/20 02/29/20 02/29/20 04:00 04:37 07:55 Temperature 99.5 F Pulse Rate 90 92 H Pulse Rate [ 96 H Anterior Bilateral Throughout] Respiratory 22 Rate Respiratory 18 Rate [Anterior Bilateral Throughout] Blood Pressure Blood Pressure 104/59 [Right] O2 Sat by Pulse 100 Oximetry 02/29/20 07:58 Temperature 97.5 F L Pulse Rate 101 H Pulse Rate [ Anterior Bilateral Throughout] Respiratory 26 H Rate Respiratory Rate [Anterior Bilateral Throughout] Blood Pressure 118/63 Blood Pressure [Right] O2 Sat by Pulse 100 Oximetry Constitutional: alert ENT: other (orally intubated critically ill on vent) Neck: supple Effort: mildly labored Ascultation: Bilateral: clear, diminished breath sounds, rhonchi (Bilateral upper airway noises) Percussion: Bilateral: not dull Cardiovascular: other (sinus tachycardia) Neurologic: unable to assess CBC and BMP: 02/29/20 06:00 02/29/20 06:00 ABG, PT/INR, D-dimer: ABG ABG pH 7.355 pH Units (7.350-7.450) 02/19/20 05:08 ABG pCO2 27.3 mm Hg 02/19/20 05:08 ABG pO2 168.2 mm Hg (80.0-90.0) H 02/19/20 05:08 ABG O2 Saturation 99.0 % (95.0-99.0) 02/19/20 05:08 PT/INR, D-dimer PT 18.6 Sec. (12.2-14.9) H 02/19/20 03:20 INR 1.53 (0.87-1.13) H 02/19/20 03:20 D-Dimer 1327.30 ng/mlDDU (0-234) H 02/20/20 17:20 Abnormal lab findings: Abnormal Labs 02/17/20 02/17/20 02/17/20 16:28 16:28 16:28 WBC 23.5 H RBC 3.07 L Hgb 9.1 L Hct 28.4 L RDW 16.8 H Plt Count Lymph % (Auto) Giles % (Auto) Eos % (Auto) Giles # Seg Neutrophils % Seg Neuts % (Manual) 84.0 H Lymphocytes % (Manual) 8.0 L Monocytes % (Manual) 8.0 H Seg Neutrophils # Seg Neutrophils # Man 19.7 H Monocytes # (Manual) 1.9 H PT 15.3 H INR 1.19 H D-Dimer Heparin Anti-Xa Level ABG pH ABG pO2 ABG HCO3 ABG O2 Saturation ABG Base Excess ABG Hemoglobin Sodium 136 L Potassium 5.4 H Chloride Carbon Dioxide 15 L BUN 91 H Creatinine 3.7 H D Glucose 120 H POC Glucose Lactic Acid Calcium 7.9 L Magnesium Ferritin AST 65 H ALT 81 H Lactate Dehydrogenase Total Creatine Kinase CK-MB (CK-2) Troponin T C-Reactive Protein NT-Pro-B Natriuret Pep Total Protein 5.4 L Albumin 2.3 L Triglycerides HDL Cholesterol Urine WBC (Auto) Urine Creatinine Urine Chloride Urine Total Protein Crossmatch 02/17/20 02/17/20 02/17/20 16:28 16:28 16:28 WBC RBC Hgb Hct RDW Plt Count Lymph % (Auto) Giles % (Auto) Eos % (Auto) Giles # Seg Neutrophils % Seg Neuts % (Manual) Lymphocytes % (Manual) Monocytes % (Manual) Seg Neutrophils # Seg Neutrophils # Man Monocytes # (Manual) PT INR D-Dimer > 62295 H Heparin Anti-Xa Level ABG pH ABG pO2 ABG HCO3 ABG O2 Saturation ABG Base Excess ABG Hemoglobin Sodium Potassium Chloride Carbon Dioxide BUN Creatinine Glucose POC Glucose Lactic Acid 2.70 H* Calcium Magnesium Ferritin AST ALT Lactate Dehydrogenase Total Creatine Kinase CK-MB (CK-2) Troponin T 0.748 H* C-Reactive Protein NT-Pro-B Natriuret Pep 1980 H Total Protein Albumin Triglycerides HDL Cholesterol Urine WBC (Auto) Urine Creatinine Urine Chloride Urine Total Protein Crossmatch 08/28/20 08/28/20 08/28/20 16:28 16:28 18:35 WBC RBC Hgb Hct RDW Plt Count Lymph % (Auto) Giles % (Auto) Eos % (Auto) Giles # Seg Neutrophils % Seg Neuts % (Manual) Lymphocytes % (Manual) Monocytes % (Manual) Seg Neutrophils # Seg Neutrophils # Man Monocytes # (Manual) PT INR D-Dimer Heparin Anti-Xa Level ABG pH 7.303 L ABG pO2 327.3 H ABG HCO3 12.5 L ABG O2 Saturation 99.5 H ABG Base Excess -12.3 L ABG Hemoglobin 11.2 L Sodium Potassium Chloride Carbon Dioxide BUN Creatinine Glucose POC Glucose Lactic Acid Calcium Magnesium Ferritin 1191.0 H AST ALT Lactate Dehydrogenase 381 H Total Creatine Kinase CK-MB (CK-2) Troponin T C-Reactive Protein 18.20 H NT-Pro-B Natriuret Pep Total Protein Albumin Triglycerides HDL Cholesterol Urine WBC (Auto) Urine Creatinine Urine Chloride Urine Total Protein Crossmatch 02/17/20 02/18/20 02/18/20 Unknown 05:20 10:10 WBC RBC Hgb Hct RDW Plt Count Lymph % (Auto) Giles % (Auto) Eos % (Auto) Giles # Seg Neutrophils % Seg Neuts % (Manual) Lymphocytes % (Manual) Monocytes % (Manual) Seg Neutrophils # Seg Neutrophils # Man Monocytes # (Manual) PT INR D-Dimer Heparin Anti-Xa Level ABG pH 7.217 L ABG pO2 165.7 H ABG HCO3 10.5 L ABG O2 Saturation ABG Base Excess -15.7 L ABG Hemoglobin 10.3 L Sodium Potassium Chloride Carbon Dioxide BUN Creatinine Glucose POC Glucose Lactic Acid Calcium Magnesium Ferritin AST ALT Lactate Dehydrogenase Total Creatine Kinase 5660 H CK-MB (CK-2) 78.0 H Troponin T 1.030 H* D C-Reactive Protein NT-Pro-B Natriuret Pep Total Protein Albumin Triglycerides 164 H HDL Cholesterol 38 L Urine WBC (Auto) 17.0 H Urine Creatinine Urine Chloride Urine Total Protein Crossmatch 02/18/20 02/18/20 02/18/20 12:14 17:32 17:40 WBC RBC Hgb Hct RDW Plt Count Lymph % (Auto) Giles % (Auto) Eos % (Auto) Giles # Seg Neutrophils % Seg Neuts % (Manual) Lymphocytes % (Manual) Monocytes % (Manual) Seg Neutrophils # Seg Neutrophils # Man Monocytes # (Manual) PT INR D-Dimer Heparin Anti-Xa Level ABG pH ABG pO2 ABG HCO3 ABG O2 Saturation ABG Base Excess ABG Hemoglobin Sodium Potassium Chloride Carbon Dioxide BUN Creatinine Glucose POC Glucose 193 H 191 H Lactic Acid Calcium Magnesium Ferritin AST ALT Lactate Dehydrogenase Total Creatine Kinase CK-MB (CK-2) Troponin T C-Reactive Protein NT-Pro-B Natriuret Pep Total Protein Albumin Triglycerides HDL Cholesterol Urine WBC (Auto) Urine Creatinine 35.2 H Urine Chloride 81.0 L Urine Total Protein 38 H Crossmatch 02/18/20 02/19/20 02/19/20 17:40 00:04 01:50 WBC RBC Hgb Hct RDW Plt Count Lymph % (Auto) Giles % (Auto) Eos % (Auto) Giles # Seg Neutrophils % Seg Neuts % (Manual) Lymphocytes % (Manual) Monocytes % (Manual) Seg Neutrophils # Seg Neutrophils # Man Monocytes # (Manual) PT INR D-Dimer Heparin Anti-Xa Level 0.18 L ABG pH ABG pO2 ABG HCO3 ABG O2 Saturation ABG Base Excess ABG Hemoglobin Sodium Potassium Chloride 111.4 H Carbon Dioxide 11 L BUN 77 H Creatinine 2.8 H Glucose 168 H POC Glucose 145 H Lactic Acid Calcium 7.2 L Magnesium Ferritin AST ALT Lactate Dehydrogenase Total Creatine Kinase CK-MB (CK-2) Troponin T C-Reactive Protein NT-Pro-B Natriuret Pep Total Protein Albumin Triglycerides HDL Cholesterol Urine WBC (Auto) Urine Creatinine Urine Chloride Urine Total Protein Crossmatch 02/19/20 02/19/20 02/19/20 03:20 04:00 05:08 WBC 17.6 H RBC 2.76 L Hgb 8.1 L Hct 25.0 L RDW 16.6 H Plt Count Lymph % (Auto) 10.5 L Giles % (Auto) Eos % (Auto) Giles # 1.2 H Seg Neutrophils % 82.1 H Seg Neuts % (Manual) Lymphocytes % (Manual) Monocytes % (Manual) Seg Neutrophils # 14.5 H Seg Neutrophils # Man Monocytes # (Manual) PT 18.6 H INR 1.53 H D-Dimer Heparin Anti-Xa Level ABG pH ABG pO2 168.2 H ABG HCO3 14.9 L ABG O2 Saturation ABG Base Excess -9.5 L ABG Hemoglobin 8.3 L Sodium Potassium Chloride Carbon Dioxide BUN Creatinine Glucose POC Glucose Lactic Acid Calcium Magnesium Ferritin AST ALT Lactate Dehydrogenase Total Creatine Kinase CK-MB (CK-2) Troponin T C-Reactive Protein NT-Pro-B Natriuret Pep Total Protein Albumin Triglycerides HDL Cholesterol Urine WBC (Auto) Urine Creatinine Urine Chloride Urine Total Protein Crossmatch 02/19/20 02/19/20 02/19/20 05:38 05:50 09:10 WBC RBC Hgb Hct RDW Plt Count Lymph % (Auto) Giles % (Auto) Eos % (Auto) Giles # Seg Neutrophils % Seg Neuts % (Manual) Lymphocytes % (Manual) Monocytes % (Manual) Seg Neutrophils # Seg Neutrophils # Man Monocytes # (Manual) PT INR D-Dimer Heparin Anti-Xa Level ABG pH ABG pO2 ABG HCO3 ABG O2 Saturation ABG Base Excess ABG Hemoglobin Sodium Potassium Chloride 111.6 H 111.9 H Carbon Dioxide 14 L 15 L BUN 69 H 68 H Creatinine 2.6 H 2.5 H Glucose 151 H 154 H POC Glucose 143 H Lactic Acid Calcium 7.4 L 7.2 L Magnesium Ferritin AST ALT Lactate Dehydrogenase Total Creatine Kinase 3552 H CK-MB (CK-2) Troponin T C-Reactive Protein NT-Pro-B Natriuret Pep Total Protein Albumin Triglycerides HDL Cholesterol Urine WBC (Auto) Urine Creatinine Urine Chloride Urine Total Protein Crossmatch 02/19/20 02/19/20 02/19/20 11:41 12:00 17:46 WBC RBC Hgb Hct RDW Plt Count Lymph % (Auto) Giles % (Auto) Eos % (Auto) Giles # Seg Neutrophils % Seg Neuts % (Manual) Lymphocytes % (Manual) Monocytes % (Manual) Seg Neutrophils # Seg Neutrophils # Man Monocytes # (Manual) PT INR D-Dimer Heparin Anti-Xa Level 0.11 L ABG pH ABG pO2 ABG HCO3 ABG O2 Saturation ABG Base Excess ABG Hemoglobin Sodium Potassium Chloride Carbon Dioxide BUN Creatinine Glucose POC Glucose 160 H 133 H Lactic Acid Calcium Magnesium Ferritin AST ALT Lactate Dehydrogenase Total Creatine Kinase CK-MB (CK-2) Troponin T C-Reactive Protein NT-Pro-B Natriuret Pep Total Protein Albumin Triglycerides HDL Cholesterol Urine WBC (Auto) Urine Creatinine Urine Chloride Urine Total Protein Crossmatch 02/19/20 02/19/20 02/20/20 20:02 23:50 04:44 WBC RBC 2.64 L Hgb 7.9 L Hct 24.1 L RDW 16.3 H Plt Count 137 L Lymph % (Auto) Giles % (Auto) Eos % (Auto) Giles # Seg Neutrophils % Seg Neuts % (Manual) Lymphocytes % (Manual) Monocytes % (Manual) Seg Neutrophils # Seg Neutrophils # Man Monocytes # (Manual) PT INR D-Dimer Heparin Anti-Xa Level 0.12 L ABG pH ABG pO2 ABG HCO3 ABG O2 Saturation ABG Base Excess ABG Hemoglobin Sodium Potassium Chloride Carbon Dioxide BUN Creatinine Glucose POC Glucose 128 H Lactic Acid Calcium Magnesium Ferritin AST ALT Lactate Dehydrogenase Total Creatine Kinase CK-MB (CK-2) Troponin T C-Reactive Protein NT-Pro-B Natriuret Pep Total Protein Albumin Triglycerides HDL Cholesterol Urine WBC (Auto) Urine Creatinine Urine Chloride Urine Total Protein Crossmatch 02/20/20 02/20/20 02/20/20 04:44 04:44 10:00 WBC RBC Hgb Hct RDW Plt Count Lymph % (Auto) Giles % (Auto) Eos % (Auto) Giles # Seg Neutrophils % Seg Neuts % (Manual) Lymphocytes % (Manual) Monocytes % (Manual) Seg Neutrophils # Seg Neutrophils # Man Monocytes # (Manual) PT INR D-Dimer Heparin Anti-Xa Level 0.15 L < 0.10 L ABG pH ABG pO2 ABG HCO3 ABG O2 Saturation ABG Base Excess ABG Hemoglobin Sodium Potassium Chloride 110.4 H Carbon Dioxide 19 L BUN 61 H Creatinine 2.4 H Glucose POC Glucose Lactic Acid Calcium 7.3 L Magnesium Ferritin AST ALT Lactate Dehydrogenase Total Creatine Kinase 2238 H CK-MB (CK-2) Troponin T C-Reactive Protein NT-Pro-B Natriuret Pep Total Protein Albumin Triglycerides HDL Cholesterol Urine WBC (Auto) Urine Creatinine Urine Chloride Urine Total Protein Crossmatch 02/20/20 02/20/20 02/20/20 12:58 17:20 17:20 WBC RBC Hgb Hct RDW Plt Count Lymph % (Auto) Giles % (Auto) Eos % (Auto) Giles # Seg Neutrophils % Seg Neuts % (Manual) Lymphocytes % (Manual) Monocytes % (Manual) Seg Neutrophils # Seg Neutrophils # Man Monocytes # (Manual) PT INR D-Dimer 1327.30 H Heparin Anti-Xa Level 0.17 L ABG pH ABG pO2 ABG HCO3 ABG O2 Saturation ABG Base Excess ABG Hemoglobin Sodium Potassium Chloride Carbon Dioxide BUN Creatinine Glucose POC Glucose 123 H Lactic Acid Calcium Magnesium Ferritin AST ALT Lactate Dehydrogenase Total Creatine Kinase CK-MB (CK-2) Troponin T C-Reactive Protein NT-Pro-B Natriuret Pep Total Protein Albumin Triglycerides HDL Cholesterol Urine WBC (Auto) Urine Creatinine Urine Chloride Urine Total Protein Crossmatch 02/20/20 02/20/20 02/20/20 17:20 18:11 23:52 WBC RBC Hgb Hct RDW Plt Count Lymph % (Auto) Giles % (Auto) Eos % (Auto) Giles # Seg Neutrophils % Seg Neuts % (Manual) Lymphocytes % (Manual) Monocytes % (Manual) Seg Neutrophils # Seg Neutrophils # Man Monocytes # (Manual) PT INR D-Dimer Heparin Anti-Xa Level ABG pH ABG pO2 ABG HCO3 ABG O2 Saturation ABG Base Excess ABG Hemoglobin Sodium Potassium Chloride Carbon Dioxide BUN Creatinine Glucose POC Glucose 156 H 153 H Lactic Acid Calcium Magnesium Ferritin AST ALT Lactate Dehydrogenase Total Creatine Kinase CK-MB (CK-2) Troponin T 0.573 H* D C-Reactive Protein NT-Pro-B Natriuret Pep Total Protein Albumin Triglycerides HDL Cholesterol Urine WBC (Auto) Urine Creatinine Urine Chloride Urine Total Protein Crossmatch 02/21/20 02/21/20 02/21/20 04:39 04:39 05:12 WBC RBC 2.35 L Hgb 6.9 L Hct 21.1 L RDW 16.2 H Plt Count 126 L Lymph % (Auto) Giles % (Auto) Eos % (Auto) Giles # Seg Neutrophils % Seg Neuts % (Manual) Lymphocytes % (Manual) Monocytes % (Manual) Seg Neutrophils # Seg Neutrophils # Man Monocytes # (Manual) PT INR D-Dimer Heparin Anti-Xa Level ABG pH ABG pO2 ABG HCO3 ABG O2 Saturation ABG Base Excess ABG Hemoglobin Sodium Potassium Chloride Carbon Dioxide BUN 54 H Creatinine 2.2 H Glucose 120 H POC Glucose 139 H Lactic Acid Calcium 6.8 L Magnesium Ferritin AST ALT Lactate Dehydrogenase Total Creatine Kinase 1488 H CK-MB (CK-2) Troponin T C-Reactive Protein NT-Pro-B Natriuret Pep Total Protein Albumin Triglycerides HDL Cholesterol Urine WBC (Auto) Urine Creatinine Urine Chloride Urine Total Protein Crossmatch 02/21/20 02/21/20 02/21/20 10:47 13:24 15:41 WBC RBC Hgb Hct RDW Plt Count Lymph % (Auto) Giles % (Auto) Eos % (Auto) Giles # Seg Neutrophils % Seg Neuts % (Manual) Lymphocytes % (Manual) Monocytes % (Manual) Seg Neutrophils # Seg Neutrophils # Man Monocytes # (Manual) PT INR D-Dimer Heparin Anti-Xa Level < 0.10 L ABG pH ABG pO2 ABG HCO3 ABG O2 Saturation ABG Base Excess ABG Hemoglobin Sodium Potassium Chloride Carbon Dioxide BUN Creatinine Glucose POC Glucose 107 H Lactic Acid Calcium Magnesium Ferritin AST ALT Lactate Dehydrogenase Total Creatine Kinase CK-MB (CK-2) Troponin T C-Reactive Protein NT-Pro-B Natriuret Pep Total Protein Albumin Triglycerides HDL Cholesterol Urine WBC (Auto) Urine Creatinine Urine Chloride Urine Total Protein Crossmatch See Detail 02/22/20 02/22/20 02/22/20 05:13 05:13 12:24 WBC RBC 3.18 L Hgb 9.5 L Hct 27.6 L D RDW 15.9 H Plt Count 114 L Lymph % (Auto) Giles % (Auto) Eos % (Auto) Giles # Seg Neutrophils % Seg Neuts % (Manual) Lymphocytes % (Manual) Monocytes % (Manual) Seg Neutrophils # Seg Neutrophils # Man Monocytes # (Manual) PT INR D-Dimer Heparin Anti-Xa Level ABG pH ABG pO2 ABG HCO3 ABG O2 Saturation ABG Base Excess ABG Hemoglobin Sodium Potassium Chloride Carbon Dioxide BUN 52 H Creatinine 2.3 H Glucose 103 H POC Glucose 122 H Lactic Acid Calcium 6.7 L Magnesium Ferritin AST ALT Lactate Dehydrogenase Total Creatine Kinase 865 H CK-MB (CK-2) Troponin T C-Reactive Protein NT-Pro-B Natriuret Pep Total Protein Albumin Triglycerides HDL Cholesterol Urine WBC (Auto) Urine Creatinine Urine Chloride Urine Total Protein Crossmatch 02/22/20 02/23/20 02/23/20 17:17 05:27 05:36 WBC RBC 3.15 L Hgb 9.4 L Hct 27.6 L RDW 15.9 H Plt Count 97 L Lymph % (Auto) Giles % (Auto) Eos % (Auto) Giles # Seg Neutrophils % Seg Neuts % (Manual) Lymphocytes % (Manual) Monocytes % (Manual) Seg Neutrophils # Seg Neutrophils # Man Monocytes # (Manual) PT INR D-Dimer Heparin Anti-Xa Level ABG pH ABG pO2 ABG HCO3 ABG O2 Saturation ABG Base Excess ABG Hemoglobin Sodium Potassium Chloride Carbon Dioxide BUN Creatinine Glucose POC Glucose 165 H 120 H Lactic Acid Calcium Magnesium Ferritin AST ALT Lactate Dehydrogenase Total Creatine Kinase CK-MB (CK-2) Troponin T C-Reactive Protein NT-Pro-B Natriuret Pep Total Protein Albumin Triglycerides HDL Cholesterol Urine WBC (Auto) Urine Creatinine Urine Chloride Urine Total Protein Crossmatch 02/23/20 02/23/20 02/23/20 05:36 05:36 11:57 WBC RBC Hgb Hct RDW Plt Count Lymph % (Auto) Giles % (Auto) Eos % (Auto) Giles # Seg Neutrophils % Seg Neuts % (Manual) Lymphocytes % (Manual) Monocytes % (Manual) Seg Neutrophils # Seg Neutrophils # Man Monocytes # (Manual) PT INR D-Dimer Heparin Anti-Xa Level ABG pH ABG pO2 ABG HCO3 ABG O2 Saturation ABG Base Excess ABG Hemoglobin Sodium Potassium 3.0 L D Chloride Carbon Dioxide BUN 53 H Creatinine 2.3 H Glucose 115 H POC Glucose 162 H Lactic Acid Calcium 7.0 L Magnesium 1.20 L Ferritin AST ALT Lactate Dehydrogenase Total Creatine Kinase 476 H CK-MB (CK-2) Troponin T C-Reactive Protein NT-Pro-B Natriuret Pep Total Protein Albumin Triglycerides HDL Cholesterol Urine WBC (Auto) Urine Creatinine Urine Chloride Urine Total Protein Crossmatch 02/24/20 02/24/20 02/24/20 05:33 05:55 05:55 WBC RBC 3.17 L Hgb 9.4 L Hct 28.2 L RDW 16.1 H Plt Count 96 L Lymph % (Auto) Giles % (Auto) Eos % (Auto) Giles # Seg Neutrophils % Seg Neuts % (Manual) Lymphocytes % (Manual) Monocytes % (Manual) Seg Neutrophils # Seg Neutrophils # Man Monocytes # (Manual) PT INR D-Dimer Heparin Anti-Xa Level ABG pH ABG pO2 ABG HCO3 ABG O2 Saturation ABG Base Excess ABG Hemoglobin Sodium 146 H Potassium Chloride 110.0 H Carbon Dioxide BUN 69 H Creatinine 2.6 H Glucose 119 H POC Glucose 156 H Lactic Acid Calcium 7.2 L Magnesium Ferritin AST ALT Lactate Dehydrogenase Total Creatine Kinase 362 H CK-MB (CK-2) Troponin T C-Reactive Protein NT-Pro-B Natriuret Pep Total Protein Albumin Triglycerides HDL Cholesterol Urine WBC (Auto) Urine Creatinine Urine Chloride Urine Total Protein Crossmatch 02/24/20 02/24/20 02/24/20 11:51 18:35 23:41 WBC RBC Hgb Hct RDW Plt Count Lymph % (Auto) Giles % (Auto) Eos % (Auto) Giles # Seg Neutrophils % Seg Neuts % (Manual) Lymphocytes % (Manual) Monocytes % (Manual) Seg Neutrophils # Seg Neutrophils # Man Monocytes # (Manual) PT INR D-Dimer Heparin Anti-Xa Level ABG pH ABG pO2 ABG HCO3 ABG O2 Saturation ABG Base Excess ABG Hemoglobin Sodium Potassium Chloride Carbon Dioxide BUN Creatinine Glucose POC Glucose 155 H 134 H 148 H Lactic Acid Calcium Magnesium Ferritin AST ALT Lactate Dehydrogenase Total Creatine Kinase CK-MB (CK-2) Troponin T C-Reactive Protein NT-Pro-B Natriuret Pep Total Protein Albumin Triglycerides HDL Cholesterol Urine WBC (Auto) Urine Creatinine Urine Chloride Urine Total Protein Crossmatch 02/25/20 02/25/20 02/25/20 05:11 10:39 11:40 WBC RBC Hgb 8.6 L Hct 25.6 L RDW Plt Count 79 L Lymph % (Auto) Giles % (Auto) Eos % (Auto) Giles # Seg Neutrophils % Seg Neuts % (Manual) Lymphocytes % (Manual) Monocytes % (Manual) Seg Neutrophils # Seg Neutrophils # Man Monocytes # (Manual) PT INR D-Dimer Heparin Anti-Xa Level ABG pH ABG pO2 ABG HCO3 ABG O2 Saturation ABG Base Excess ABG Hemoglobin Sodium Potassium Chloride 108.6 H Carbon Dioxide BUN 77 H Creatinine 2.9 H Glucose 121 H POC Glucose 119 H Lactic Acid Calcium 7.5 L Magnesium Ferritin AST ALT Lactate Dehydrogenase Total Creatine Kinase CK-MB (CK-2) Troponin T C-Reactive Protein NT-Pro-B Natriuret Pep Total Protein Albumin Triglycerides HDL Cholesterol Urine WBC (Auto) Urine Creatinine Urine Chloride Urine Total Protein Crossmatch 02/25/20 02/25/20 02/25/20 15:24 17:21 23:18 WBC RBC Hgb Hct RDW Plt Count Lymph % (Auto) Giles % (Auto) Eos % (Auto) Giles # Seg Neutrophils % Seg Neuts % (Manual) Lymphocytes % (Manual) Monocytes % (Manual) Seg Neutrophils # Seg Neutrophils # Man Monocytes # (Manual) PT INR D-Dimer Heparin Anti-Xa Level ABG pH ABG pO2 ABG HCO3 ABG O2 Saturation ABG Base Excess ABG Hemoglobin Sodium Potassium Chloride Carbon Dioxide BUN Creatinine Glucose POC Glucose 138 H 139 H 109 H Lactic Acid Calcium Magnesium Ferritin AST ALT Lactate Dehydrogenase Total Creatine Kinase CK-MB (CK-2) Troponin T C-Reactive Protein NT-Pro-B Natriuret Pep Total Protein Albumin Triglycerides HDL Cholesterol Urine WBC (Auto) Urine Creatinine Urine Chloride Urine Total Protein Crossmatch 02/26/20 02/26/20 02/26/20 05:55 12:12 13:02 WBC RBC Hgb Hct RDW Plt Count Lymph % (Auto) Giles % (Auto) Eos % (Auto) Giles # Seg Neutrophils % Seg Neuts % (Manual) Lymphocytes % (Manual) Monocytes % (Manual) Seg Neutrophils # Seg Neutrophils # Man Monocytes # (Manual) PT INR D-Dimer Heparin Anti-Xa Level ABG pH ABG pO2 ABG HCO3 ABG O2 Saturation ABG Base Excess ABG Hemoglobin Sodium 146 H Potassium Chloride 112.7 H Carbon Dioxide 20 L BUN 81 H Creatinine 3.0 H Glucose 123 H POC Glucose 111 H 128 H Lactic Acid Calcium 7.9 L Magnesium Ferritin AST ALT Lactate Dehydrogenase Total Creatine Kinase CK-MB (CK-2) Troponin T C-Reactive Protein NT-Pro-B Natriuret Pep Total Protein Albumin Triglycerides HDL Cholesterol Urine WBC (Auto) Urine Creatinine Urine Chloride Urine Total Protein Crossmatch 02/26/20 02/26/20 02/27/20 17:57 23:16 06:05 WBC RBC 2.84 L Hgb 8.5 L Hct 25.0 L RDW 15.8 H Plt Count 65 L Lymph % (Auto) Giles % (Auto) 12.1 H Eos % (Auto) 5.1 H Giles # Seg Neutrophils % Seg Neuts % (Manual) Lymphocytes % (Manual) Monocytes % (Manual) Seg Neutrophils # Seg Neutrophils # Man Monocytes # (Manual) PT INR D-Dimer Heparin Anti-Xa Level ABG pH ABG pO2 ABG HCO3 ABG O2 Saturation ABG Base Excess ABG Hemoglobin Sodium Potassium Chloride Carbon Dioxide BUN Creatinine Glucose POC Glucose 156 H 168 H Lactic Acid Calcium Magnesium Ferritin AST ALT Lactate Dehydrogenase Total Creatine Kinase CK-MB (CK-2) Troponin T C-Reactive Protein NT-Pro-B Natriuret Pep Total Protein Albumin Triglycerides HDL Cholesterol Urine WBC (Auto) Urine Creatinine Urine Chloride Urine Total Protein Crossmatch 02/27/20 02/27/20 02/27/20 06:05 11:44 19:00 WBC RBC Hgb Hct RDW Plt Count Lymph % (Auto) Giles % (Auto) Eos % (Auto) Giles # Seg Neutrophils % Seg Neuts % (Manual) Lymphocytes % (Manual) Monocytes % (Manual) Seg Neutrophils # Seg Neutrophils # Man Monocytes # (Manual) PT INR D-Dimer Heparin Anti-Xa Level ABG pH ABG pO2 ABG HCO3 ABG O2 Saturation ABG Base Excess ABG Hemoglobin Sodium 146 H Potassium Chloride 110.2 H Carbon Dioxide BUN 80 H Creatinine 3.3 H Glucose POC Glucose 116 H 134 H Lactic Acid Calcium 7.8 L Magnesium Ferritin AST ALT Lactate Dehydrogenase Total Creatine Kinase CK-MB (CK-2) Troponin T C-Reactive Protein NT-Pro-B Natriuret Pep Total Protein Albumin Triglycerides HDL Cholesterol Urine WBC (Auto) Urine Creatinine Urine Chloride Urine Total Protein Crossmatch 02/27/20 02/28/20 02/28/20 23:52 04:52 04:52 WBC RBC 2.73 L Hgb 8.1 L Hct 23.9 L RDW 15.9 H Plt Count 74 L Lymph % (Auto) Giles % (Auto) 14.1 H Eos % (Auto) Giles # 1.0 H Seg Neutrophils % Seg Neuts % (Manual) Lymphocytes % (Manual) Monocytes % (Manual) Seg Neutrophils # Seg Neutrophils # Man Monocytes # (Manual) PT INR D-Dimer Heparin Anti-Xa Level ABG pH ABG pO2 ABG HCO3 ABG O2 Saturation ABG Base Excess ABG Hemoglobin Sodium Potassium Chloride 107.5 H Carbon Dioxide BUN 81 H Creatinine 3.0 H Glucose 128 H POC Glucose 117 H Lactic Acid Calcium 7.7 L Magnesium Ferritin AST ALT Lactate Dehydrogenase Total Creatine Kinase CK-MB (CK-2) Troponin T C-Reactive Protein NT-Pro-B Natriuret Pep Total Protein Albumin Triglycerides HDL Cholesterol Urine WBC (Auto) Urine Creatinine Urine Chloride Urine Total Protein Crossmatch 02/28/20 02/28/20 02/28/20 05:52 12:19 16:24 WBC RBC Hgb Hct RDW Plt Count Lymph % (Auto) Giles % (Auto) Eos % (Auto) Giles # Seg Neutrophils % Seg Neuts % (Manual) Lymphocytes % (Manual) Monocytes % (Manual) Seg Neutrophils # Seg Neutrophils # Man Monocytes # (Manual) PT INR D-Dimer Heparin Anti-Xa Level ABG pH ABG pO2 ABG HCO3 ABG O2 Saturation ABG Base Excess ABG Hemoglobin Sodium Potassium Chloride Carbon Dioxide BUN Creatinine Glucose POC Glucose 148 H 152 H 118 H Lactic Acid Calcium Magnesium Ferritin AST ALT Lactate Dehydrogenase Total Creatine Kinase CK-MB (CK-2) Troponin T C-Reactive Protein NT-Pro-B Natriuret Pep Total Protein Albumin Triglycerides HDL Cholesterol Urine WBC (Auto) Urine Creatinine Urine Chloride Urine Total Protein Crossmatch 02/29/20 02/29/20 02/29/20 00:12 05:21 06:00 WBC RBC 2.73 L Hgb 8.2 L Hct 24.0 L RDW 16.4 H Plt Count 88 L Lymph % (Auto) Giles % (Auto) 13.9 H Eos % (Auto) Giles # 1.2 H Seg Neutrophils % Seg Neuts % (Manual) Lymphocytes % (Manual) Monocytes % (Manual) Seg Neutrophils # Seg Neutrophils # Man Monocytes # (Manual) PT INR D-Dimer Heparin Anti-Xa Level ABG pH ABG pO2 ABG HCO3 ABG O2 Saturation ABG Base Excess ABG Hemoglobin Sodium Potassium Chloride Carbon Dioxide BUN Creatinine Glucose POC Glucose 144 H 184 H Lactic Acid Calcium Magnesium Ferritin AST ALT Lactate Dehydrogenase Total Creatine Kinase CK-MB (CK-2) Troponin T C-Reactive Protein NT-Pro-B Natriuret Pep Total Protein Albumin Triglycerides HDL Cholesterol Urine WBC (Auto) Urine Creatinine Urine Chloride Urine Total Protein Crossmatch 02/29/20 02/29/20 06:00 12:19 WBC RBC Hgb Hct RDW Plt Count Lymph % (Auto) Giles % (Auto) Eos % (Auto) Giles # Seg Neutrophils % Seg Neuts % (Manual) Lymphocytes % (Manual) Monocytes % (Manual) Seg Neutrophils # Seg Neutrophils # Man Monocytes # (Manual) PT INR D-Dimer Heparin Anti-Xa Level ABG pH ABG pO2 ABG HCO3 ABG O2 Saturation ABG Base Excess ABG Hemoglobin Sodium Potassium Chloride Carbon Dioxide BUN 89 H Creatinine 3.4 H Glucose 147 H POC Glucose 167 H Lactic Acid Calcium 7.7 L Magnesium Ferritin AST ALT Lactate Dehydrogenase Total Creatine Kinase CK-MB (CK-2) Troponin T C-Reactive Protein NT-Pro-B Natriuret Pep Total Protein Albumin Triglycerides HDL Cholesterol Urine WBC (Auto) Urine Creatinine Urine Chloride Urine Total Protein Crossmatch
--- NOTE | 2020-02-29 14:16 | Progress Note ---
Assessment and Plan Assessment and plan: --Dysphagia; oropharyngeal Oropharyngeal dysphagia per speech therapist Follow speech therapist evaluation and recommendations If abnormal possible PEG placement --Sepsis; right pneumonia/HCAP s/p Vanco and cefepime , Monitor off antibiotics ID following follow cultures, supportive care ID,Pulm following --New episodes of fever; Patient already completed course of antibiotics for sepsis/pneumonia Check new set of blood cultures, monitor off antibiotics ID following --Bilateral pneumonia; present on initial admission As noted above. COVID markers elevated Ferritin 1191. Ddmer >10,000. CRP 18. LDH 381. Recent sputum cx with PMDR Proteus, MRSA. H flu. MRSA PCR positive. --elevated D-dimers More than 10,000, V/Q scan low probability for PE lower extremity venous Doppler,neg DVT dc heparin Drip, prophylactic anticoagulation --Rhabdomyolysis; Continue IV fluids, input output monitoring, CK levels trending down CK [id number] We will monitor renal function --COVID-19 test negative x2 during last admission Test negative during this admission 02/18/2020 However patient has very high levels of inflammatory markers ID consulted, trend the markers --Acute resp failure with hypoxia/extubated 02/19/2020 on nasal cannula oxygen, saturating well Very high ddimer suspect PE post COVID. --Acute kidney injury on chronic kidney disease Secondary to ATN, gentle hydration Avoid nephrotoxins, monitor renal function Nephrology following -- DVT prophylaxis SCD, Heparin ,renal dose PT OT, DC planning 02/24/2020. Patient extubated yesterday and tolerated nasal cannula. Patient's baseline creatinine appears to be 1.6-1.8 2014. Continue IV fluid hydration per nephrology recommendations. CK level was elevated. Therefore, etiology may be from acute kidney injury and rhabdomyolysis. Renal ultrasound revealed chronic medical renal disease and no hydronephrosis. Urine eosinophils negative. Awaiting placement. I discussed the case with case management. 02/25/2020. Patient currently with nasogastric tube and tube feedings at 45 cc an hour. Speech evaluation for swallowing. Patient currently with nasal cannula 3 L O2. Creatinine remains elevated. Recheck BMP. Continue free water flushes 200 ml q 4 hrs via NGT for hypernatremia. Urine eosinophils negative, calculated protein to cr ratio 1 g, monitor. Continue vancomycin and cefepime per ID recommendations. 02/26/2020. Speech therapy evaluation reports oropharyngeal dysphagia. Patient will likely need PEG tube placement. Attempted to call family renetta Marquez to discuss possible PEG placement, no answer. Patient with adequate urine output but creatinine still not improved significantly. Albumin 25% 100 mls q6H X 3 doses. Continue per nephrology recommendations. Antibiotics discontinued yesterday per ID recommendations. 02/27/2020. Speech therapy evaluation reports oropharyngeal dysphagia. Patient will likely need PEG tube placement. Attempted to call family Mica Marquez to discuss possible PEG placement, no answer. We will need case management for assistance. Continue per ID and nephrology recommendations. 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 Will check with [facility] and try to find next of kin/family member for consent for PEG placement as well as consent for DNR/hospice status. History Interval history: I have seen and examined the patient at the bedside this morning Patient's chart current medications consultants recommendations reviewed Patient is noncommunicative critically ill cachectic Vital signs reviewed Unable to do swallow eval because of unresponsiveness Patient is receiving tube feeding Hospitalist Physical - Constitutional Vitals: Temp Pulse Resp BP Pulse Ox 97.5 F L 98 H 18 118/63 100 02/29/20 07:58 02/29/20 13:37 02/29/20 13:37 02/29/20 07:58 02/29/20 10:00 General appearance: Present: mild distress, well-nourished, other (confused, chronically ill looking, noncommunicative) - EENT Eyes: Present: PERRL. Absent: scleral icterus - Respiratory Respiratory effort: normal Respiratory: bilateral: diminished, rhonchi, negative: rales, wheezing - Cardiovascular Rhythm: regular Heart Sounds: Present: S1 & S2 - Extremities Extremities: no ischemia Extremity abnormal: edema - Abdominal General gastrointestinal: soft, non-tender, non-distended, normal bowel sounds - Integumentary Integumentary: Present: clear, warm - Psychiatric Psychiatric: other (Noncommunicative) - Neurologic Neurologic: other (Noncommunicative) HEART Score - HEART Score Troponin: Troponin T 0.573 ng/mL (0.00-0.029) H* D 02/20/20 17:20 Results - Labs CBC & Chem 7: 02/29/20 06:00 02/29/20 06:00 Labs: Laboratory Last Values WBC 8.7 K/mm3 (4.5-11.0) 02/29/20 06:00 RBC 2.73 M/mm3 (3.65-5.03) L 02/29/20 06:00 Hgb 8.2 gm/dl (11.8-15.2) L 02/29/20 06:00 Hct 24.0 % (35.5-45.6) L 02/29/20 06:00 MCV 88 fl (84-94) 02/29/20 06:00 MCH 30 pg (28-32) 02/29/20 06:00 MCHC 34 % (32-34) 02/29/20 06:00 RDW 16.4 % (13.2-15.2) H 02/29/20 06:00 Plt Count 88 K/mm3 (140-440) L 02/29/20 06:00 Lymph % (Auto) 20.2 % (13.4-35.0) 02/29/20 06:00 [place] % (Auto) 13.9 % (0.0-7.3) H 02/29/20 06:00 Eos % (Auto) 2.6 % (0.0-4.3) 02/29/20 06:00 Baso % (Auto) 0.4 % (0.0-1.8) 02/29/20 06:00 Lymph # 1.7 K/mm3 (1.2-5.4) 02/29/20 06:00 [place] # 1.2 K/mm3 (0.0-0.8) H 02/29/20 06:00 Eos # 0.2 K/mm3 (0.0-0.4) 02/29/20 06:00 Baso # 0.0 K/mm3 (0.0-0.1) 02/29/20 06:00 Add Manual Diff Complete 02/17/20 16:28 Total Counted 100 02/17/20 16:28 Seg Neutrophils % 62.9 % (40.0-70.0) 02/29/20 06:00 Seg Neuts % (Manual) 84.0 % (40.0-70.0) H 02/17/20 16:28 Band Neutrophils % 0 % 02/17/20 16:28 Lymphocytes % (Manual) 8.0 % (13.4-35.0) L 02/17/20 16:28 Reactive Lymphs % (Man) 0 % 02/17/20 16:28 Monocytes % (Manual) 8.0 % (0.0-7.3) H 02/17/20 16:28 Eosinophils % (Manual) 0 % (0.0-4.3) 02/17/20 16: Basophils % (Manual) 0 % (0.0-1.8) 02/17/20 16: Metamyelocytes % 0 % 02/17/20 16:28 Myelocytes % 0 % 02/17/20 16: Promyelocytes % 0 % 02/17/20 16: Blast Cells % 0 % 02/17/20 16:28 Nucleated RBC % Not Reportable 02/17/20 16:28 Seg Neutrophils # 5.4 K/mm3 (1.8-7.7) 02/29/20 06:00 Seg Neutrophils # Man 19.7 K/mm3 (1.8-7.7) H 02/17/20 16:28 Band Neutrophils # 0.0 K/mm3 02/17/20 16:28 Lymphocytes # (Manual) 1.9 K/mm3 (1.2-5.4) 02/17/20 16:28 Abs React Lymphs (Man) 0.0 K/mm3 02/17/20 16:28 Monocytes # (Manual) 1.9 K/mm3 (0.0-0.8) H 02/17/20 16:28 Eosinophils # (Manual) 0.0 K/mm3 (0.0-0.4) 02/17/20 16: Basophils # (Manual) 0.0 K/mm3 (0.0-0.1) 02/17/20 16:28 Metamyelocytes # 0.0 K/mm3 02/17/20 16:28 Myelocytes # 0.0 K/mm3 02/17/20 16:28 Promyelocytes # 0.0 K/mm3 02/17/20 16:28 Blast Cells # 0.0 K/mm3 02/17/20 16:28 WBC Morphology Not Reportable 02/17/20 16:28 Hypersegmented Neuts Not Reportable 02/17/20 16:28 Hyposegmented Neuts Not Reportable 02/17/20 16:28 Hypogranular Neuts Not Reportable 02/17/20 16:28 Smudge Cells Not Reportable 02/17/20 16:28 Toxic Granulation Not Reportable 02/17/20 16:28 Toxic Vacuolation Not Reportable 02/17/20 16:28 Dohle Bodies Not Reportable 02/17/20 16:28 Pelger-Huet Anomaly Not Reportable 02/17/20 16:28 Krys Rods Not Reportable 02/17/20 16:28 Platelet Estimate Not Reportable 02/17/20 16:28 Clumped Platelets Not Reportable 02/17/20 16:28 Plt Clumps, EDTA Not Reportable 02/17/20 16:28 Large Platelets Not Reportable 02/17/20 16:28 Giant Platelets Not Reportable 02/17/20 16:28 Platelet Satelliting Not Reportable 02/17/20 16:28 Plt Morphology Comment Not Reportable 02/17/20 16:28 RBC Morphology Normal 02/17/20 16:28 Dimorphic RBCs Not Reportable 02/17/20 16:28 Polychromasia Not Reportable 02/17/20 16:28 Hypochromasia Not Reportable 02/17/20 16:28 Poikilocytosis Not Reportable 02/17/20 16:28 Anisocytosis Not Reportable 02/17/20 16:28 Microcytosis Not Reportable 02/17/20 16:28 Macrocytosis Not Reportable 02/17/20 16:28 Spherocytes Not Reportable 02/17/20 16:28 Pappenheimer Bodies Not Reportable 02/17/20 16:28 Sickle Cells Not Reportable 02/17/20 16:28 Target Cells Not Reportable 02/17/20 16:28 Tear Drop Cells Not Reportable 02/17/20 16:28 Ovalocytes Not Reportable 02/17/20 16:28 Helmet Cells Not Reportable 02/17/20 16:28 Lazo-[place] Bodies Not Reportable 02/17/20 16:28 Callahan Rings Not Reportable 02/17/20 16:28 [place] Cells Not Reportable 02/17/20 16:28 Bite Cells Not Reportable 02/17/20 16:28 Crenated Cell Not Reportable 02/17/20 16:28 Elliptocytes Not Reportable 02/17/20 16:28 Acanthocytes (Spur) Not Reportable 02/17/20 16:28 Rouleaux Not Reportable 02/17/20 16:28 Hemoglobin C Crystals Not Reportable 02/17/20 16:28 Schistocytes Not Reportable 02/17/20 16:28 Malaria parasites Not Reportable 02/17/20 16:28 Keron Bodies Not Reportable 02/17/20 16:28 Hem Pathologist Commnt No 02/17/20 16:28 PT 18.6 Sec. (12.2-14.9) H 02/19/20 03:20 INR 1.53 (0.87-1.13) H 02/19/20 03:20 APTT 26.8 Sec. (24.2-36.6) 02/17/20 16:28 D-Dimer 1327.30 ng/mlDDU (0-234) H 02/20/20 17:20 Heparin Anti-Xa Level < 0.10 U.I./ml (0.3-0.7) L 02/21/20 15:41 ABG pH 7.355 pH Units (7.350-7.450) 02/19/20 05:08 ABG pCO2 27.3 mm Hg 02/19/20 05:08 ABG pO2 168.2 mm Hg (80.0-90.0) H 02/19/20 05:08 ABG HCO3 14.9 mmol/L (20.0-26.0) L 02/19/20 05:08 ABG O2 Saturation 99.0 % (95.0-99.0) 02/19/20 05:08 ABG O2 Content 11.7 (0.0-44) 02/19/20 05:08 ABG Base Excess -9.5 mmol/L (-2.0-3.0) L 02/19/20 05:08 ABG Hemoglobin 8.3 gm/dl (14.0-18.0) L 02/19/20 05:08 ABG Carboxyhemoglobin 1.2 % (0.0-5.0) 02/19/20 05:08 ABG Methemoglobin 0.7 % (0.0-1.5) 02/19/20 05:08 Oxyhemoglobin 97.2 % (95.0-99.0) 02/19/20 05:08 FiO2 40 % 02/19/20 05:08 Sodium 141 mmol/L (137-145) 02/29/20 06:00 Potassium 4.1 mmol/L (3.6-5.0) 02/29/20 06:00 Chloride 106.0 mmol/L (98-107) 02/29/20 06:00 Carbon Dioxide 23 mmol/L (22-30) 02/29/20 06:00 Anion Gap 16 mmol/L 02/29/20 06:00 BUN 89 mg/dL (9-20) H 02/29/20 06:00 Creatinine 3.4 mg/dL (0.8-1.3) H 02/29/20 06:00 Estimated GFR 21 ml/min 02/29/20 06:00 BUN/Creatinine Ratio 26 % 02/29/20 06:00 Glucose 147 mg/dL (75-100) H 02/29/20 06:00 POC Glucose 167 (70-105) H 02/29/20 12:19 Lactic Acid 1.90 mmol/L (0.7-2.0) 02/17/20 22:56 Calcium 7.7 mg/dL (8.4-10.2) L 02/29/20 06:00 Magnesium 1.20 mg/dL (1.7-2.3) L 02/23/20 05:36 Ferritin 1191.0 ng/mL (30.0-300.0) H 02/17/20 16:28 Total Bilirubin 0.50 mg/dL (0.1-1.2) 02/17/20 16:28 AST 65 units/L (5-40) H 02/17/20 16:28 ALT 81 units/L (7-56) H 02/17/20 16:28 Alkaline Phosphatase 101 units/L (35-129) 02/17/20 16:28 Lactate Dehydrogenase 381 units/L (91-180) H 02/17/20 16:28 Total Creatine Kinase 362 units/L (55-170) H 02/24/20 05:55 CK-MB (CK-2) 78.0 ng/mL (0.0-4.0) H 02/18/20 10:10 CK-MB (CK-2) Rel Index 1.3 (0-4) 02/18/20 10:10 Troponin T 0.573 ng/mL (0.00-0.029) H* D 02/20/20 17:20 C-Reactive Protein 18.20 mg/dL (0.00-1.30) H 02/17/20 16:28 NT-Pro-B Natriuret Pep 1980 pg/mL (0-900) H 02/17/20 16:28 Total Protein 5.4 g/dL (6.3-8.2) L 02/17/20 16:28 Albumin 2.3 g/dL (3.9-5) L 02/17/20 16:28 Albumin/Globulin Ratio 0.7 % 02/17/20 16:28 Triglycerides 164 mg/dL (2-149) H 02/18/20 10:10 Cholesterol 133 mg/dL (50-199) 02/18/20 10:10 LDL Cholesterol Direct 71 mg/dL (50-130) 02/18/20 10:10 HDL Cholesterol 38 mg/dL (40-59) L 02/18/20 10:10 Cholesterol/HDL Ratio 3.50 % 02/18/20 10:10 Procalcitonin 8.38 ng/mL (<0.15) 02/28/20 14:43 TSH 3.490 mlU/mL (0.270-4.200) 02/17/20 16:28 Urine Color Yellow (Yellow) 02/17/20 Unknown Urine Turbidity Slightly-cloudy (Clear) 02/17/20 Unknown Urine pH 5.0 (5.0-7.0) 02/17/20 Unknown Ur Specific [place] 1.010 (1.003-1.030) 02/17/20 Unknown Urine Protein 30 mg/dl mg/dL (Negative) 02/17/20 Unknown Urine Glucose (UA) Neg mg/dL (Negative) 02/17/20 Unknown Urine Ketones Neg mg/dL (Negative) 02/17/20 Unknown Urine Blood Mod (Negative) 02/17/20 Unknown Urine Nitrite Neg (Negative) 02/17/20 Unknown Urine Bilirubin Neg (Negative) 02/17/20 Unknown Urine Urobilinogen < 2.0 mg/dL (<2.0) 02/17/20 Unknown Ur Leukocyte Esterase Mod (Negative) 02/17/20 Unknown Urine WBC (Auto) 17.0 /HPF (0.0-6.0) H 02/17/20 Unknown Urine RBC (Auto) 17.0 /HPF (0.0-6.0) 02/17/20 Unknown U Epithel Cells (Auto) 4.0 /HPF (0-13.0) 02/17/20 Unknown Urine Bacteria (Auto) 1+ /HPF (Negative) 02/17/20 Unknown Urine Yeast (Budding) 2+ /HPF 02/17/20 Unknown Urine Eosinophils None seen (None Seen) 02/18/20 17:40 Urine Creatinine 35.2 mg/dL (0.1-20.0) H 02/18/20 17:40 Urine Microalbumin 5.9 mg/dL (0.1-34.0) 02/18/20 17:40 Microalb/Creat Ratio 167.6 ug/mg 02/18/20 17:40 Urine Sodium 104 mmol/L 02/18/20 17:40 Urine Chloride 81.0 mmolL (110-250) L 02/18/20 17:40 Urine Total Protein 38 mg/dL (5-11.8) H 02/18/20 17:40 Nasal Screen MRSA (PCR) Positive (Negative) 02/18/20 17:40 Random Vancomycin 15.6 ug/mL (0-40.0) 02/23/20 05:36 Coronavirus (PCR) Negative (Negative) 02/23/20 09:59 Blood Type B NEGATIVE 02/21/20 10:47 Antibody Screen Negative 02/21/20 10:47 Crossmatch See Detail 02/21/20 10:47 Microbiology: Microbiology 02/28/20 14:43 Peripheral/Venous Blood Culture - Preliminary Culture in Progress 02/28/20 14:43 Peripheral/Venous Blood Culture - Preliminary Culture in Progress - Diagnostic Impressions Diagnostic Impressions: Echocardiogram 02/19/20 15:05 Transthoracic Echocardiogram Indication: NSTEMI BP: 95/50 HR: 107 Conclusions *Global left ventricular systolic function is at the lower limits of normal. *The estimated ejection fraction is 45-50%. *Abnormal left ventricular diastolic filling is observed, consistent with impaired relaxation. *There is evidence of mild pulmonary hypertension. *There is no pericardial effusion. Findings Left Ventricle: The left ventricular chamber size is normal. Global left ventricular systolic function is at the lower limits of normal. The estimated ejection fraction is 45-50%. Abnormal left ventricular diastolic filling is observed, consistent with impaired relaxation. Left Atrium: The left atrial chamber size is normal. Right Ventricle: The right ventricular cavity size is normal. Right Atrium: The right atrial cavity size is normal. Aortic Valve: Mild aortic leaflet calcification is visualized. There is trace of aortic regurgitation. Mitral Valve: Mild mitral leaflet calcification is visualized. There is no evidence of mitral regurgitation. Tricuspid Valve: The tricuspid valve leaflets are normal. There is mild tricuspid regurgitation. The right ventricular systolic pressure is calculated at 40 mmHg. There is evidence of mild pulmonary hypertension. Pericardium: There is no pericardial effusion. Aorta: The aorta appears normal. Venous: The inferior vena cava appears normal. Measurements Chambers 2D Name Value Normal Range IVSd (2D) 1.09 cm (0.6 - 1.1) LVPWd (2D) 1 cm (0.6 - 1.1) LVIDd (2D) 3.55 cm (3.7 - 5.6) LVIDs (2D) 3 cm (2 - 3.8) LV FS (2D) 15.53 % - Ao root diameter (2D) 3.26 cm (2 - 3.7) Volumes/Mass Name Value Normal Range LA ESV SP 4CH (A/L) 17.3 ml - LA ESV SP 2CH (A/L) 18.3 ml - LA ESV BP (A/L) 19.14 ml - LA ESV BP (A/L) index 9.38 ml/m2 - LA ESV SP 4CH (MOD) 15.02 ml - LA ESV SP 2CH (MOD) 17.03 ml - LA ESV BP (MOD) 17.14 ml - LA ESV BP (MOD) index 8.4 ml/m2 - Diastolic/Systolic Function Name Value Normal Range MV E-wave Vmax 0.56 m/sec - MV deceleration time 197.94 msec - MV A-wave Vmax 1.36 m/sec - MV E:A ratio 0.41 ratio - Aortic Valve Name Value Normal Range AV Vmax 2.3 m/sec - AV VTI 33.77 cm - AV peak gradient 22.91 mmHg - AV mean gradient 12.27 mmHg - LVOT diameter 2.08 cm - LVOT Vmax 0.84 m/sec - LVOT VTI 14.82 cm - LVOT peak gradient 2.82 mmHg - LVOT mean gradient 2 mmHg - SV LVOT 50.44 ml - KALYAN (continuity Vmax) 1.24 cm2 - KALYAN (continuity VTI) 1.49 cm2 - AR PHT 460.84 msec - AR peak gradient 52.84 mmHg - Tricuspid Valve Name Value Normal Range TR Vmax 3.03 m/sec - TR peak gradient 37 mmHg - RAP 3 mmHg - RVSP 40 mmHg - Pulmonic Valve/Qp:Qs Name Value Normal Range PV acceleration time 106.57 msec - Yin/IV: Voiding Method Indwelling Catheter IV Catheter Type [Right Hand] INT / Saline Lock IV Catheter Type [Left Upper INT / Saline Lock arm] IV Catheter Type [Right Triple Lumen Cath Femoral] IV Catheter Type [Right INT / Saline Lock Antecubital] Active Medications - Current Medications Current Medications: Generic Name Dose Route Start Last Admin Trade Name Freq PRN Reason Stop Dose Admin Albuterol 2.5 mg 02/26/20 09:18 Proventil IH Q4HRT PRN Shortness Of Breath Albuterol/Ipratropium 1 ampul 02/26/20 14:00 02/29/20 13:36 Duoneb *Not For Prn Use* IH 1 ampul TIDRT LOS Administration Lipase/Protease/Amylase 1 each 02/21/20 12:12 Demond Simon 10,500 Unit FEEDTUBE PRN PRN For Clogged Feeding Tube Aspirin 81 mg 02/18/20 10:00 02/29/20 10:00 Baby Aspirin PO 81 mg DAILY LOS Administration Atorvastatin Calcium 20 mg 02/18/20 22:00 02/28/20 22:10 Lipitor PO 20 mg QHS LOS Administration Dextrose 50 ml 02/18/20 12:55 D50w (25gm) Syringe IV Q30MIN PRN Hypoglycemia Protocol Docusate Sodium 100 mg 02/20/20 12:00 02/29/20 10:00 Colace PO 100 mg BID LOS Administration Heparin Sodium (Porcine) 5,000 unit 02/24/20 22:00 02/29/20 10:37 Heparin SUB-Q 5,000 unit Q12HR LOS Administration Hydrophilic Ointment 1 applic 02/17/20 15:12 Vaseline Lip Therapy TP Q2HR PRN Dry Lips Insulin Human Regular 0 unit 02/18/20 13:00 02/29/20 07:42 Humulin R SUB-Q Not Given Q6HR LOS Protocol Magnesium Hydroxide 30 ml 02/18/20 02:31 Milk Of Magnesia PO Q4H PRN Constipation Multi-Ingred Cream/Lotion/Oil/Oint 1 applic 02/17/20 15:12 02/19/20 04:25 Artificial Tears Ophth Oint OU 1 applic Q4HR PRN Administration Dry Eye(s) Simple Syrup 15 ml 02/21/20 12:12 Simple Syrup FEEDTUBE PRN PRN Hypoglycemia Simple Syrup 30 ml 02/21/20 12:12 Simple Syrup FEEDTUBE PRN PRN Hypoglycemia Sodium Bicarbonate 325 mg 02/21/20 12:12 Sodium Bicarbonate FEEDTUBE PRN PRN For Clogged Feeding Tube Sodium Chloride 10 ml 02/18/20 10:00 02/29/20 10:01 Sodium Chloride Flush Syringe 10 Ml IV 10 ml BID LOS Administration Sodium Chloride 10 ml 02/18/20 02:31 Sodium Chloride Flush Syringe 10 Ml IV PRN PRN LINE FLUSH Nutrition/Malnutrition Assess - Dietary Evaluation Nutrition/Malnutrition Findings: Nutrition Notes Start: 02/18/20 10:34 Freq: Status: Active Protocol: Document 02/29/20 10:53 [email or web address] (Rec: 02/29/20 12:00 [email or web address]) Co-Sign 02/29/20 10:53 LM Nutrition Notes Initial or Follow up Reassessment Current Diagnosis CKD(stage I-IV),Diabetes, Sepsis,Hypertension, Hyperlipidemia Other Pertinent Diagnosis UTI, Dementia Current Diet Nepro 1.8 at 45ml/hr Labs/Tests Glucose 147 Cr 3.4 BUN 89 Pertinent Medications Reviewed Height 6 ft Weight 87.2 kg [place] Body Weight (kg) 80.90 BMI 26.0 Subjective/Other Information Follow-up on TF and Bello administration. Pt is at goal rate of 45 mL/hr; flush 200 mL q4hr. Nurse reports that pt is tolerating TF well. Nurse has not seen Bello and thus has not administered the supplement. Pt was extubated. Percent of energy/protein needs met: 98%/100% Burn Absent Trauma Absent GI Symptoms None Skin Integrity/Comment Multiple pressure ulcers Current % PO Negligible Minimum of two criteria No physical signs of malnutrition #2 Nutrition Diagnosis Increased nutrient needs ( specify in comment below) Diagnosis Progress(for reassessment Continues documentation) #1 Nutrition Diagnosis Inadequate oral intake Diagnosis Progress(for reassessment Continues documentation) Is patient on ventilator? No Is Patient Ambulatory and/or Out of Bed No REE-([place]-St Jeor-confined to bed) 1979.156 Calculation Used for Recommendations [facility] Additional Notes PRO needs: 69 - 130 g (0.8 - 1 .5 g/kg) Fluid needs: 1 mL/kcal Nutrition Intervention Change Diet Order: Continue TF Nutrition Support: Nepro at 45ml/hr Flush at 200ml q4hr Kcal 1,944 Protein (gm) 87 Fluid (mL) 785 % RDI: 100 Add Supplement/Snack (indicate name/kcal Bello BID /protein ) Provides kCal: 190 Provides Protein (gm) 5 Goal #1 TF tolerance Goal #2 Meet 80% of energy and protein needs via TF. Goal #3 Pt will receive Bello BID Anticipated Discharge Needs: Unable to determine at this time. Follow-Up By: 03/06/20 Additional Comments Follow up for continued tolerance and Bello administration.
--- NOTE | 2020-02-29 15:16 | Progress Note ---
Assessment and Plan Cultures: Coronavirus PCR 02/05/2020: Negative Coronavirus PCR 02/10/2020: Negative Coronavirus PCR 02/18/2020: Negative MRSA nasal PCR 02/05/2020: Positive 02/04/2020 blood culture: No growth 02/04/2020 tracheal aspirate: Proteus, Hemophilus, MRSA 02/14/2020 blood culture: No growth 02/17/2020 tracheal aspirate: normal resp demetrius 02/17/2020 blood culture: No growth today 02/28/2020 blood culture: Pending A/P: 74 y/o male with history of CVA with left hemiparesis, diabetes mellitus, hypertension, dyslipidemia, dementia and peripheral vascular disease, from [facility], recent COVID, admitted on due to AMS and low O2 sats: #Severe sepsis with septic shock: Resolved #Bilateral pneumonia: likely bacterial pneumonia. COVID markers elevated Ferritin 1191. Ddmer >10,000. CRP 18. LDH 381. Recent sputum cx with PMDR Proteus, MRSA. H flu. MRSA PCR positive. Elevated procal however possible due to renal failure #Acute resp failure: Now extubated. #Elevated LFTs: from sepsis #AMMY on CKD: renally adjusted meds, required HD during previous admission Recs: -Procalcitonin elevated, unclear significance of renal function. -Follow-up blood cultures -If recurrent fevers we will start empiric antibiotics. -Agree with full anticoagulation High risk mortality / guarded prognosis consider palliative care Edel Saenz MD [facility] M: [phone] O: [phone] F: [phone] Subjective Date of service: 02/29/20 Principal diagnosis: Septic Shock Interval history: Afebrile over last 24 hours. Normal white count. New blood cultures pending. Objective - Exam Narrative Exam: Constitutional: Extubated on nasal cannula Head, Ears, Nose: Normocephalic, atraumatic. External ears, nose normal Oral: Limited Eyes: Conjunctivae/corneas clear. No icterus. No ptosis. Neck: limited Cardiovascular: tachy Respiratory: limited GI: limited Musculoskeletal: limited Skin: limited Hem/Lymphatic: limited Psych: limited Neurological: limited - Constitutional Vitals: Vital Signs Temp Pulse Resp BP Pulse Ox 97.5 F L 98 H 18 118/63 100 02/29/20 07:58 02/29/20 13:37 02/29/20 13:37 02/29/20 07:58 02/29/20 10:00 Temperature -Last 24 Hours Temperature 97.5 F Temperature 99.5 F Temperature 99.6 F Temperature 99.6 F Temperature 99.6 F - Labs CBC & Chem 7: 02/29/20 06:00 02/29/20 06:00 Labs: Abnormal lab results 02/28/20 02/29/20 02/29/20 Range/Units 16:24 00:12 05:21 RBC (3.65-5.03) M/mm3 Hgb (11.8-15.2) gm/dl Hct (35.5-45.6) % RDW (13.2-15.2) % Plt Count (140-440) K/mm3 [place] % (Auto) (0.0-7.3) % [place] # (0.0-0.8) K/mm3 BUN (9-20) mg/dL Creatinine (0.8-1.3) mg/dL Glucose (75-100) mg/dL POC Glucose 118 H 144 H 184 H (70-105) Calcium (8.4-10.2) mg/dL 02/29/20 02/29/20 02/29/20 Range/Units 06:00 06:00 12:19 RBC 2.73 L (3.65-5.03) M/mm3 Hgb 8.2 L (11.8-15.2) gm/dl Hct 24.0 L (35.5-45.6) % RDW 16.4 H (13.2-15.2) % Plt Count 88 L (140-440) K/mm3 [place] % (Auto) 13.9 H (0.0-7.3) % [place] # 1.2 H (0.0-0.8) K/mm3 BUN 89 H (9-20) mg/dL Creatinine 3.4 H (0.8-1.3) mg/dL Glucose 147 H (75-100) mg/dL POC Glucose 167 H (70-105) Calcium 7.7 L (8.4-10.2) mg/dL
--- NOTE | 2020-02-29 15:58 | Progress Note ---
Assessment and Plan Assessment: Acute hypoxic respiratory failure Septic Shock 2/2 PNA Bilateral PNA Acute Kidney Injury 2/2 ischemic ATN from septic shock, Rhabdo, on underlying CKD, r/o obstruction Elevated D-Dimers Plan: - Renal function reviewed, SCr level was 3.4 today, yesterday's SCr level was 3.0, non-oliguric - Review of labs in 2014 in [facility] did show SCr level between 1.6-1.8 - S/P D5W +150 mEq sodium bicarbonate infusion at 75 ml/hr - CK level was elevated so could have AMMY from contribution from Rhabdo as well - Renal ultrasound-chronic medical renal disease. No hydronephrosis - Urine eosinophils negative, calculated protein to cr ratio 1 g, monitor - Had recent COVID infection, last 2 tests were negative - Yin Catheter: Yes - Renally dose medications - Avoid nephrotoxins - Continue to monitor - No acute indication for TE[employer]ER [employer]AL Subjective Date of service: 02/29/20 Principal diagnosis: Septic Shock Interval history: Patient seen lying in bed. nurse at bedside. Patient does not follow commands. Objective - Vital Signs Vital signs: Vital Signs - 12hr 02/29/20 02/29/20 02/29/20 04:00 04:37 07:55 Temperature 99.5 F Pulse Rate 90 92 H Pulse Rate [ 96 H Anterior Bilateral Throughout] Respiratory 22 Rate Respiratory 18 Rate [Anterior Bilateral Throughout] Blood Pressure Blood Pressure 104/59 [Right] O2 Sat by Pulse 100 Oximetry 02/29/20 02/29/20 02/29/20 07:58 10:00 13:37 Temperature 97.5 F L Pulse Rate 101 H Pulse Rate [ 98 H Anterior Bilateral Throughout] Respiratory 26 H Rate Respiratory 18 Rate [Anterior Bilateral Throughout] Blood Pressure 118/63 Blood Pressure [Right] O2 Sat by Pulse 100 100 Oximetry - General Appearance General appearance: cachectic, chronically ill, other (does not follow commands) EENT: ATNC Neck: no JVD Respiratory: Present: Decreased Breath Sounds Cardiology: S1S2 Gastrointestinal: other (Has NG tube ) Integumentary: warm and dry Neurologic: other (Unresponsive, doesn ot follow commands) Musculoskeletal: joint swelling - Lab 02/29/20 06:00 02/29/20 06:00 Most recent lab results ABG pH 7.355 pH Units (7.350-7.450) 02/19/20 05:08 ABG pCO2 27.3 mm Hg 02/19/20 05:08 ABG pO2 168.2 mm Hg (80.0-90.0) H 02/19/20 05:08 ABG HCO3 14.9 mmol/L (20.0-26.0) L 02/19/20 05:08 ABG O2 Saturation 99.0 % (95.0-99.0) 02/19/20 05:08 Calcium 7.7 mg/dL (8.4-10.2) L 02/29/20 06:00 Magnesium 1.20 mg/dL (1.7-2.3) L 02/23/20 05:36 Urine Creatinine 35.2 mg/dL (0.1-20.0) H 02/18/20 17:40 Urine Sodium 104 mmol/L 02/18/20 17:40 Urine Total Protein 38 mg/dL (5-11.8) H 02/18/20 17:40 Medications & Allergies - Medications Allergies/Adverse Reactions: Allergies No Known Allergies Allergy (Unverified 05/01/15 23:41) Home Medications: Home Medications Medication Instructions Recorded Confirmed Last Taken Type Acetaminophen [Acetaminophen TAB] 650 mg PO Q8H PRN 05/02/15 02/18/20 Unknown History Albuterol Sulfate [Albuterol 0.63% 0.63 mg IH Q6H PRN 05/02/15 02/18/20 Unknown History NEBS] Aspirin [Aspirin BABY CHEW TAB] 81 mg PO DAILY 05/02/15 02/18/20 05/01/15 History AtorvaSTATin [Lipitor] 20 mg PO QHS 05/02/15 02/18/20 05/01/15 History Docusate Sodium [Colace CAP] 100 mg PO BID 05/02/15 02/18/20 05/02/15 History Insulin Lispro [HumaLOG VIAL] See Protocol SUB-Q ACHS 05/02/15 02/18/20 05/01/15 History amLODIPine 5 mg PO DAILY 05/02/15 02/18/20 05/01/15 History Active Medications: Generic Name Dose Route Start Last Admin Trade Name Freq PRN Reason Stop Dose Admin Albuterol 2.5 mg 02/26/20 09:18 Proventil IH Q4HRT PRN Shortness Of Breath Albuterol/Ipratropium 1 ampul 02/26/20 14:00 02/29/20 13:36 Duoneb *Not For Prn Use* IH 1 ampul TIDRT LOS Administration Lipase/Protease/Amylase 1 each 02/21/20 12:12 Pancrecristiane Simon 10,500 Unit FEEDTUBE PRN PRN For Clogged Feeding Tube Aspirin 81 mg 02/18/20 10:00 02/29/20 10:00 Baby Aspirin PO 81 mg DAILY LOS Administration Atorvastatin Calcium 20 mg 02/18/20 22:00 02/28/20 22:10 Lipitor PO 20 mg QHS LOS Administration Dextrose 50 ml 02/18/20 12:55 D50w (25gm) Syringe IV Q30MIN PRN Hypoglycemia Protocol Docusate Sodium 100 mg 02/20/20 12:00 02/29/20 10:00 Colace PO 100 mg BID LOS Administration Heparin Sodium (Porcine) 5,000 unit 02/24/20 22:00 02/29/20 10:37 Heparin SUB-Q 5,000 unit Q12HR LOS Administration Hydrophilic Ointment 1 applic 02/17/20 15:12 Vaseline Lip Therapy TP Q2HR PRN Dry Lips Insulin Human Regular 0 unit 02/18/20 13:00 02/29/20 07:42 Humulin R SUB-Q Not Given Q6HR PENDING SALE TO [facility] Protocol Magnesium Hydroxide 30 ml 02/18/20 02:31 Milk Of Magnesia PO Q4H PRN Constipation Multi-Ingred Cream/Lotion/Oil/Oint 1 applic 02/17/20 15:12 02/19/20 04:25 Artificial Tears Ophth Oint OU 1 applic Q4HR PRN Administration Dry Eye(s) Simple Syrup 15 ml 02/21/20 12:12 Simple Syrup FEEDTUBE PRN PRN Hypoglycemia Simple Syrup 30 ml 02/21/20 12:12 Simple Syrup FEEDTUBE PRN PRN Hypoglycemia Sodium Bicarbonate 325 mg 02/21/20 12:12 Sodium Bicarbonate FEEDTUBE PRN PRN For Clogged Feeding Tube Sodium Chloride 10 ml 02/18/20 10:00 02/29/20 10:01 Sodium Chloride Flush Syringe 10 Ml IV 10 ml BID LOS Administration Sodium Chloride 10 ml 02/18/20 02:31 Sodium Chloride Flush Syringe 10 Ml IV PRN PRN LINE FLUSH
[2020-03-01] MEDS: INSULIN REGULAR, HUMAN 100 UNIT/ML 3ML VIAL SUB-Q SCH ×4 (00:02→17:55)
[2020-03-01] MEDS ORDERED: SODIUM CHLORIDE 0.9% 500 ML 500 ML IV ONE (04:10)
[2020-03-01] MEDS: SODIUM CHLORIDE 0.9% 1000 ML 1,000 ML IV SCH ×2 (04:17→23:32)
[2020-03-01 06:26] LABS: Hematocrit 23.1 % (35.5-45.6); Hemoglobin 7.6 gm/dl (11.8-15.2); Mean Corpuscular HGB Conc 33 % (32-34); Mean Corpuscular Volume 89 fl (84-94); Platelet Count 121 K/mm3 (140-440); Red Blood Count 2.58 M/mm3 (3.65-5.03); Red Cell Distribution Width 15.9 % (13.2-15.2)
[2020-03-01 06:29] LABS: Basophils % (Auto) 0.2 % (0.0-1.8); Eosinophils % (Auto) 1.9 % (0.0-4.3); Lymphocytes # (Auto) 1.6 K/mm3 (1.2-5.4); Lymphocytes % (Auto) 16.8 % (13.4-35.0); Monocytes # (Auto) 1.3 K/mm3 (0.0-0.8); Monocytes % (Auto) 13.7 % (0.0-7.3)
[2020-03-01 06:30] LABS: Eosinophils # (Auto) 0.2 K/mm3 (0.0-0.4)
[2020-03-01 06:35] LABS: Calcium 7.9 mg/dL (8.4-10.2)
[2020-03-01] MEDS: IPRATROPIUM/ALBUTEROL SULFATE 3 ML AMPUL.NEB IH SCH ×3 (07:39→21:02)
[2020-03-01] MEDS ORDERED: SODIUM CHLORIDE 0.9% 250ML 250 ML IV ONE (10:00)
--- NOTE | 2020-03-01 10:29 | Progress Note ---
Assessment and Plan Assessment and plan: --Dysphagia; oropharyngeal Oropharyngeal dysphagia per speech therapist Follow speech therapist evaluation and recommendations If abnormal possible PEG placement --Sepsis; right pneumonia/HCAP s/p Vanco and cefepime , Monitor off antibiotics ID following follow cultures, supportive care ID,Pulm following --New episodes of fever; Patient already completed course of antibiotics for sepsis/pneumonia Check new set of blood cultures, monitor off antibiotics ID following --Bilateral pneumonia; present on initial admission As noted above. COVID markers elevated Ferritin 1191. Ddmer >10,000. CRP 18. LDH 381. Recent sputum cx with PMDR Proteus, MRSA. H flu. MRSA PCR positive. --elevated D-dimers More than 10,000, V/Q scan low probability for PE lower extremity venous Doppler,neg DVT dc heparin Drip, prophylactic anticoagulation --Rhabdomyolysis; Continue IV fluids, input output monitoring, CK levels trending down CK [id number] We will monitor renal function --COVID-19 test negative x2 during last admission Test negative during this admission 02/18/2020 However patient has very high levels of inflammatory markers ID consulted, trend the markers --Acute resp failure with hypoxia/extubated 02/19/2020 on nasal cannula oxygen, saturating well Very high ddimer suspect PE post COVID. --Acute kidney injury on chronic kidney disease Secondary to ATN, gentle hydration Avoid nephrotoxins, monitor renal function Nephrology following -- DVT prophylaxis SCD, Heparin ,renal dose PT OT, DC planning 02/24/2020. Patient extubated yesterday and tolerated nasal cannula. Patient's baseline creatinine appears to be 1.6-1.8 2014. Continue IV fluid hydration per nephrology recommendations. CK level was elevated. Therefore, etiology may be from acute kidney injury and rhabdomyolysis. Renal ultrasound revealed chronic medical renal disease and no hydronephrosis. Urine eosinophils negative. Awaiting placement. I discussed the case with case management. 02/25/2020. Patient currently with nasogastric tube and tube feedings at 45 cc an hour. Speech evaluation for swallowing. Patient currently with nasal cannula 3 L O2. Creatinine remains elevated. Recheck BMP. Continue free water flushes 200 ml q 4 hrs via NGT for hypernatremia. Urine eosinophils negative, calculated protein to cr ratio 1 g, monitor. Continue vancomycin and cefepime per ID recommendations. 02/26/2020. Speech therapy evaluation reports oropharyngeal dysphagia. Patient will likely need PEG tube placement. Attempted to call family renetta Marquez to discuss possible PEG placement, no answer. Patient with adequate urine output but creatinine still not improved significantly. Albumin 25% 100 mls q6H X 3 doses. Continue per nephrology recommendations. Antibiotics discontinued yesterday per ID recommendations. 02/27/2020. Speech therapy evaluation reports oropharyngeal dysphagia. Patient will likely need PEG tube placement. Attempted to call family Mica Marquez to discuss possible PEG placement, no answer. We will need case management for assistance. Continue per ID and nephrology recommendations. 02/27; follow speech and swallow evaluation, possible PEG placement, consult GI once family is agreeable, unable to reach family 02/28; patient needs PEG placement, unable to contact real family members, I talked to [person to contact /next of kin as per medical records] Ms.Sparks Nino Who agreed for DNR status, is not the real family member per case management/patient player services representative . Will check with [facility] and try to find next of kin/family member for consent for PEG placement as well as consent for DNR/hospice status. 03/01; family and ethics committee meeting, to decide CODE STATUS and PEG placement History Interval history: I have seen and examined the patient this morning at the bedside Patient's chart and medications reviewed Patient is critically ill cachectic unresponsive Vital signs noted Hospitalist Physical - Constitutional Vitals: Temp Pulse Resp BP Pulse Ox 98.8 F 36 L 17 76/41 99 03/01/20 09:18 03/01/20 09:18 03/01/20 09:18 03/01/20 09:18 03/01/20 09:22 General appearance: Present: mild distress, well-nourished, other (confused, chronically ill looking, noncommunicative) - EENT Eyes: Present: PERRL, EOM intact - Neck Neck: Present: supple, normal ROM - Respiratory Respiratory effort: normal Respiratory: bilateral: diminished, rhonchi, negative: rales, wheezing - Cardiovascular Rhythm: regular Heart Sounds: Present: S1 & S2 - Extremities Extremities: no ischemia, No edema - Abdominal General gastrointestinal: soft, non-tender, non-distended, normal bowel sounds - Integumentary Integumentary: Present: clear, warm - Psychiatric Psychiatric: other (Unresponsive) - Neurologic Neurologic: other (Unresponsive) HEART Score - HEART Score Troponin: Troponin T 0.573 ng/mL (0.00-0.029) H* D 02/20/20 17:20 Results - Labs CBC & Chem 7: 03/01/20 05:04 03/01/20 05:04 Labs: Laboratory Last Values WBC 9.3 K/mm3 (4.5-11.0) 03/01/20 05:04 RBC 2.58 M/mm3 (3.65-5.03) L 03/01/20 05:04 Hgb 7.6 gm/dl (11.8-15.2) L 03/01/20 05:04 Hct 23.1 % (35.5-45.6) L 03/01/20 05:04 MCV 89 fl (84-94) 03/01/20 05:04 MCH 30 pg (28-32) 03/01/20 05:04 MCHC 33 % (32-34) 03/01/20 05:04 RDW 15.9 % (13.2-15.2) H 03/01/20 05:04 Plt Count 121 K/mm3 (140-440) L 03/01/20 05:04 Lymph % (Auto) 16.8 % (13.4-35.0) 03/01/20 05:04 [place] % (Auto) 13.7 % (0.0-7.3) H 03/01/20 05:04 Eos % (Auto) 1.9 % (0.0-4.3) 03/01/20 05:04 Baso % (Auto) 0.2 % (0.0-1.8) 03/01/20 05:04 Lymph # 1.6 K/mm3 (1.2-5.4) 03/01/20 05:04 [place] # 1.3 K/mm3 (0.0-0.8) H 03/01/20 05:04 Eos # 0.2 K/mm3 (0.0-0.4) 03/01/20 05:04 Baso # 0.0 K/mm3 (0.0-0.1) 03/01/20 05:04 Add Manual Diff Complete 02/17/20 16:28 Total Counted 100 02/17/20 16:28 Seg Neutrophils % 67.4 % (40.0-70.0) 03/01/20 05:04 Seg Neuts % (Manual) 84.0 % (40.0-70.0) H 02/17/20 16:28 Band Neutrophils % 0 % 02/17/20 16:28 Lymphocytes % (Manual) 8.0 % (13.4-35.0) L 02/17/20 16:28 Reactive Lymphs % (Man) 0 % 02/17/20 16:28 Monocytes % (Manual) 8.0 % (0.0-7.3) H 02/17/20 16:28 Eosinophils % (Manual) 0 % (0.0-4.3) 02/17/20 16: Basophils % (Manual) 0 % (0.0-1.8) 02/17/20 16: Metamyelocytes % 0 % 02/17/20 16:28 Myelocytes % 0 % 02/17/20 16:28 Promyelocytes % 0 % 02/17/20 16: Blast Cells % 0 % 02/17/20 16:28 Nucleated RBC % Not Reportable 02/17/20 16:28 Seg Neutrophils # 6.2 K/mm3 (1.8-7.7) 03/01/20 05:04 Seg Neutrophils # Man 19.7 K/mm3 (1.8-7.7) H 02/17/20 16:28 Band Neutrophils # 0.0 K/mm3 02/17/20 16:28 Lymphocytes # (Manual) 1.9 K/mm3 (1.2-5.4) 02/17/20 16:28 Abs React Lymphs (Man) 0.0 K/mm3 02/17/20 16:28 Monocytes # (Manual) 1.9 K/mm3 (0.0-0.8) H 02/17/20 16:28 Eosinophils # (Manual) 0.0 K/mm3 (0.0-0.4) 02/17/20 16:28 Basophils # (Manual) 0.0 K/mm3 (0.0-0.1) 02/17/20 16:28 Metamyelocytes # 0.0 K/mm3 02/17/20 16:28 Myelocytes # 0.0 K/mm3 02/17/20 16:28 Promyelocytes # 0.0 K/mm3 02/17/20 16:28 Blast Cells # 0.0 K/mm3 02/17/20 16:28 WBC Morphology Not Reportable 02/17/20 16:28 Hypersegmented Neuts Not Reportable 02/17/20 16:28 Hyposegmented Neuts Not Reportable 02/17/20 16:28 Hypogranular Neuts Not Reportable 02/17/20 16:28 Smudge Cells Not Reportable 02/17/20 16:28 Toxic Granulation Not Reportable 02/17/20 16:28 Toxic Vacuolation Not Reportable 02/17/20 16:28 Dohle Bodies Not Reportable 02/17/20 16:28 Pelger-Huet Anomaly Not Reportable 02/17/20 16:28 Krys Rods Not Reportable 02/17/20 16:28 Platelet Estimate Not Reportable 02/17/20 16:28 Clumped Platelets Not Reportable 02/17/20 16:28 Plt Clumps, EDTA Not Reportable 02/17/20 16:28 Large Platelets Not Reportable 02/17/20 16:28 Giant Platelets Not Reportable 02/17/20 16:28 Platelet Satelliting Not Reportable 02/17/20 16:28 Plt Morphology Comment Not Reportable 02/17/20 16:28 RBC Morphology Normal 02/17/20 16:28 Dimorphic RBCs Not Reportable 02/17/20 16:28 Polychromasia Not Reportable 02/17/20 16:28 Hypochromasia Not Reportable 02/17/20 16:28 Poikilocytosis Not Reportable 02/17/20 16:28 Anisocytosis Not Reportable 02/17/20 16:28 Microcytosis Not Reportable 02/17/20 16:28 Macrocytosis Not Reportable 02/17/20 16:28 Spherocytes Not Reportable 02/17/20 16:28 Pappenheimer Bodies Not Reportable 02/17/20 16:28 Sickle Cells Not Reportable 02/17/20 16:28 Target Cells Not Reportable 02/17/20 16:28 Tear Drop Cells Not Reportable 02/17/20 16:28 Ovalocytes Not Reportable 02/17/20 16:28 Helmet Cells Not Reportable 02/17/20 16:28 Lazo-[place] Bodies Not Reportable 02/17/20 16:28 [place] Rings Not Reportable 02/17/20 16:28 Christo Cells Not Reportable 02/17/20 16:28 Bite Cells Not Reportable 02/17/20 16:28 Crenated Cell Not Reportable 02/17/20 16:28 Elliptocytes Not Reportable 02/17/20 16:28 Acanthocytes (Spur) Not Reportable 02/17/20 16:28 Rouleaux Not Reportable 02/17/20 16:28 Hemoglobin C Crystals Not Reportable 02/17/20 16:28 Schistocytes Not Reportable 02/17/20 16:28 Malaria parasites Not Reportable 02/17/20 16:28 Keron Bodies Not Reportable 02/17/20 16:28 Hem Pathologist Commnt No 02/17/20 16:28 PT 18.6 Sec. (12.2-14.9) H 02/19/20 03:20 INR 1.53 (0.87-1.13) H 02/19/20 03:20 APTT 26.8 Sec. (24.2-36.6) 02/17/20 16:28 D-Dimer 1327.30 ng/mlDDU (0-234) H 02/20/20 17:20 Heparin Anti-Xa Level < 0.10 U.I./ml (0.3-0.7) L 02/21/20 15:41 ABG pH 7.355 pH Units (7.350-7.450) 02/19/20 05:08 ABG pCO2 27.3 mm Hg 02/19/20 05:08 ABG pO2 168.2 mm Hg (80.0-90.0) H 02/19/20 05:08 ABG HCO3 14.9 mmol/L (20.0-26.0) L 02/19/20 05:08 ABG O2 Saturation 99.0 % (95.0-99.0) 02/19/20 05:08 ABG O2 Content 11.7 (0.0-44) 02/19/20 05:08 ABG Base Excess -9.5 mmol/L (-2.0-3.0) L 02/19/20 05:08 ABG Hemoglobin 8.3 gm/dl (14.0-18.0) L 02/19/20 05:08 ABG Carboxyhemoglobin 1.2 % (0.0-5.0) 02/19/20 05:08 ABG Methemoglobin 0.7 % (0.0-1.5) 02/19/20 05:08 Oxyhemoglobin 97.2 % (95.0-99.0) 02/19/20 05:08 FiO2 40 % 02/19/20 05:08 Sodium 142 mmol/L (137-145) 03/01/20 05:04 Potassium 3.8 mmol/L (3.6-5.0) 03/01/20 05:04 Chloride 108.5 mmol/L (98-107) H 03/01/20 05:04 Carbon Dioxide 24 mmol/L (22-30) 03/01/20 05:04 Anion Gap 13 mmol/L 03/01/20 05:04 BUN 99 mg/dL (9-20) H 03/01/20 05:04 Creatinine 3.9 mg/dL (0.8-1.3) H 03/01/20 05:04 Estimated GFR 18 ml/min 03/01/20 05:04 BUN/Creatinine Ratio 25 % 03/01/20 05:04 Glucose 117 mg/dL (75-100) H 03/01/20 05:04 POC Glucose 153 (70-105) H 03/01/20 05:34 Lactic Acid 1.90 mmol/L (0.7-2.0) 02/17/20 22:56 Calcium 7.9 mg/dL (8.4-10.2) L 03/01/20 05:04 Magnesium 1.20 mg/dL (1.7-2.3) L 02/23/20 05:36 Ferritin 1191.0 ng/mL (30.0-300.0) H 02/17/20 16:28 Total Bilirubin 0.50 mg/dL (0.1-1.2) 02/17/20 16:28 AST 65 units/L (5-40) H 02/17/20 16:28 ALT 81 units/L (7-56) H 02/17/20 16:28 Alkaline Phosphatase 101 units/L (35-129) 02/17/20 16:28 Lactate Dehydrogenase 381 units/L (91-180) H 02/17/20 16:28 Total Creatine Kinase 362 units/L (55-170) H 02/24/20 05:55 CK-MB (CK-2) 78.0 ng/mL (0.0-4.0) H 02/18/20 10:10 CK-MB (CK-2) Rel Index 1.3 (0-4) 02/18/20 10:10 Troponin T 0.573 ng/mL (0.00-0.029) H* D 02/20/20 17:20 C-Reactive Protein 18.20 mg/dL (0.00-1.30) H 02/17/20 16:28 NT-Pro-B Natriuret Pep 1980 pg/mL (0-900) H 02/17/20 16:28 Total Protein 5.4 g/dL (6.3-8.2) L 02/17/20 16:28 Albumin 2.3 g/dL (3.9-5) L 02/17/20 16:28 Albumin/Globulin Ratio 0.7 % 02/17/20 16:28 Triglycerides 164 mg/dL (2-149) H 02/18/20 10:10 Cholesterol 133 mg/dL (50-199) 02/18/20 10:10 LDL Cholesterol Direct 71 mg/dL (50-130) 02/18/20 10:10 HDL Cholesterol 38 mg/dL (40-59) L 02/18/20 10:10 Cholesterol/HDL Ratio 3.50 % 02/18/20 10:10 Procalcitonin 8.38 ng/mL (<0.15) 02/28/20 14:43 TSH 3.490 mlU/mL (0.270-4.200) 02/17/20 16:28 Urine Color Yellow (Yellow) 02/17/20 Unknown Urine Turbidity Slightly-cloudy (Clear) 02/17/20 Unknown Urine pH 5.0 (5.0-7.0) 02/17/20 Unknown Ur Specific [place] 1.010 (1.003-1.030) 02/17/20 Unknown Urine Protein 30 mg/dl mg/dL (Negative) 02/17/20 Unknown Urine Glucose (UA) Neg mg/dL (Negative) 02/17/20 Unknown Urine Ketones Neg mg/dL (Negative) 02/17/20 Unknown Urine Blood Mod (Negative) 02/17/20 Unknown Urine Nitrite Neg (Negative) 02/17/20 Unknown Urine Bilirubin Neg (Negative) 02/17/20 Unknown Urine Urobilinogen < 2.0 mg/dL (<2.0) 02/17/20 Unknown Ur Leukocyte Esterase Mod (Negative) 02/17/20 Unknown Urine WBC (Auto) 17.0 /HPF (0.0-6.0) H 02/17/20 Unknown Urine RBC (Auto) 17.0 /HPF (0.0-6.0) 02/17/20 Unknown U Epithel Cells (Auto) 4.0 /HPF (0-13.0) 02/17/20 Unknown Urine Bacteria (Auto) 1+ /HPF (Negative) 02/17/20 Unknown Urine Yeast (Budding) 2+ /HPF 02/17/20 Unknown Urine Eosinophils None seen (None Seen) 02/18/20 17:40 Urine Creatinine 35.2 mg/dL (0.1-20.0) H 02/18/20 17:40 Urine Microalbumin 5.9 mg/dL (0.1-34.0) 02/18/20 17:40 Microalb/Creat Ratio 167.6 ug/mg 02/18/20 17:40 Urine Sodium 104 mmol/L 02/18/20 17:40 Urine Chloride 81.0 mmolL (110-250) L 02/18/20 17:40 Urine Total Protein 38 mg/dL (5-11.8) H 02/18/20 17:40 Nasal Screen MRSA (PCR) Positive (Negative) 02/18/20 17:40 Random Vancomycin 15.6 ug/mL (0-40.0) 02/23/20 05:36 Coronavirus (PCR) Negative (Negative) 02/23/20 09:59 Blood Type B NEGATIVE 02/21/20 10:47 Antibody Screen Negative 02/21/20 10:47 Crossmatch See Detail 02/21/20 10:47 Microbiology: Microbiology 02/28/20 14:43 Peripheral/Venous Blood Culture - Preliminary NO GROWTH AFTER 24 HOURS 02/28/20 14:43 Peripheral/Venous Blood Culture - Preliminary NO GROWTH AFTER 24 HOURS - Diagnostic Impressions Diagnostic Impressions: Echocardiogram 02/19/20 15:05 Transthoracic Echocardiogram Indication: NSTEMI BP: 95/50 HR: 107 Conclusions *Global left ventricular systolic function is at the lower limits of normal. *The estimated ejection fraction is 45-50%. *Abnormal left ventricular diastolic filling is observed, consistent with impaired relaxation. *There is evidence of mild pulmonary hypertension. *There is no pericardial effusion. Findings Left Ventricle: The left ventricular chamber size is normal. Global left ventricular systolic function is at the lower limits of normal. The estimated ejection fraction is 45-50%. Abnormal left ventricular diastolic filling is observed, consistent with impaired relaxation. Left Atrium: The left atrial chamber size is normal. Right Ventricle: The right ventricular cavity size is normal. Right Atrium: The right atrial cavity size is normal. Aortic Valve: Mild aortic leaflet calcification is visualized. There is trace of aortic regurgitation. Mitral Valve: Mild mitral leaflet calcification is visualized. There is no evidence of mitral regurgitation. Tricuspid Valve: The tricuspid valve leaflets are normal. There is mild tricuspid regurgitation. The right ventricular systolic pressure is calculated at 40 mmHg. There is evidence of mild pulmonary hypertension. Pericardium: There is no pericardial effusion. Aorta: The aorta appears normal. Venous: The inferior vena cava appears normal. Measurements Chambers 2D Name Value Normal Range IVSd (2D) 1.09 cm (0.6 - 1.1) LVPWd (2D) 1 cm (0.6 - 1.1) LVIDd (2D) 3.55 cm (3.7 - 5.6) LVIDs (2D) 3 cm (2 - 3.8) LV FS (2D) 15.53 % - Ao root diameter (2D) 3.26 cm (2 - 3.7) Volumes/Mass Name Value Normal Range LA ESV SP 4CH (A/L) 17.3 ml - LA ESV SP 2CH (A/L) 18.3 ml - LA ESV BP (A/L) 19.14 ml - LA ESV BP (A/L) index 9.38 ml/m2 - LA ESV SP 4CH (MOD) 15.02 ml - LA ESV SP 2CH (MOD) 17.03 ml - LA ESV BP (MOD) 17.14 ml - LA ESV BP (MOD) index 8.4 ml/m2 - Diastolic/Systolic Function Name Value Normal Range MV E-wave Vmax 0.56 m/sec - MV deceleration time 197.94 msec - MV A-wave Vmax 1.36 m/sec - MV E:A ratio 0.41 ratio - Aortic Valve Name Value Normal Range AV Vmax 2.3 m/sec - AV VTI 33.77 cm - AV peak gradient 22.91 mmHg - AV mean gradient 12.27 mmHg - LVOT diameter 2.08 cm - LVOT Vmax 0.84 m/sec - LVOT VTI 14.82 cm - LVOT peak gradient 2.82 mmHg - LVOT mean gradient 2 mmHg - SV LVOT 50.44 ml - KALYAN (continuity Vmax) 1.24 cm2 - KALYAN (continuity VTI) 1.49 cm2 - AR PHT 460.84 msec - AR peak gradient 52.84 mmHg - Tricuspid Valve Name Value Normal Range TR Vmax 3.03 m/sec - TR peak gradient 37 mmHg - RAP 3 mmHg - RVSP 40 mmHg - Pulmonic Valve/Qp:Qs Name Value Normal Range PV acceleration time 106.57 msec - Yin/IV: Voiding Method Indwelling Catheter IV Catheter Type [Right Hand] INT / Saline Lock IV Catheter Type [Left Upper INT / Saline Lock arm] IV Catheter Type [Right Triple Lumen Cath Femoral] IV Catheter Type [Right INT / Saline Lock Antecubital] Active Medications - Current Medications Current Medications: Generic Name Dose Route Start Last Admin Trade Name Freq PRN Reason Stop Dose Admin Albuterol 2.5 mg 02/26/20 09:18 Proventil IH Q4HRT PRN Shortness Of Breath Albuterol/Ipratropium 1 ampul 02/26/20 14:00 03/01/20 07:39 Duoneb *Not For Prn Use* IH 1 ampul TIDRT LOS Administration Lipase/Protease/Amylase 1 each 02/21/20 12:12 Demond Simon 10,500 Unit FEEDTUBE PRN PRN For Clogged Feeding Tube Aspirin 81 mg 02/18/20 10:00 02/29/20 10:00 Baby Aspirin PO 81 mg DAILY LOS Administration Atorvastatin Calcium 20 mg 02/18/20 22:00 02/29/20 21:12 Lipitor PO 20 mg QHS LOS Administration Dextrose 50 ml 02/18/20 12:55 D50w (25gm) Syringe IV Q30MIN PRN Hypoglycemia Protocol Docusate Sodium 100 mg 02/20/20 12:00 02/29/20 21:12 Colace PO 100 mg BID LOS Administration Heparin Sodium (Porcine) 5,000 unit 02/24/20 22:00 02/29/20 21:12 Heparin SUB-Q 5,000 unit Q12HR LOS Administration Hydrophilic Ointment 1 applic 02/17/20 15:12 Vaseline Lip Therapy TP Q2HR PRN Dry Lips Sodium Chloride 1,000 mls @ 125 mls/hr 03/01/20 04:15 03/01/20 04:17 Nacl 0.9% 1000 Ml IV 125 mls/hr DIRECT LOS Administration Insulin Human Regular 0 unit 02/18/20 13:00 03/01/20 05:24 Humulin R SUB-Q 3 unit Q6HR LOS Administration Protocol Magnesium Hydroxide 30 ml 02/18/20 02:31 Milk Of Magnesia PO Q4H PRN Constipation Multi-Ingred Cream/Lotion/Oil/Oint 1 applic 02/17/20 15:12 02/19/20 04:25 Artificial Tears Ophth Oint OU 1 applic Q4HR PRN Administration Dry Eye(s) Simple Syrup 15 ml 02/21/20 12:12 Simple Syrup FEEDTUBE PRN PRN Hypoglycemia Simple Syrup 30 ml 02/21/20 12:12 Simple Syrup FEEDTUBE PRN PRN Hypoglycemia Sodium Bicarbonate 325 mg 02/21/20 12:12 Sodium Bicarbonate FEEDTUBE PRN PRN For Clogged Feeding Tube Sodium Chloride 10 ml 02/18/20 10:00 02/29/20 21:12 Sodium Chloride Flush Syringe 10 Ml IV 10 ml BID LOS Administration Sodium Chloride 10 ml 02/18/20 02:31 Sodium Chloride Flush Syringe 10 Ml IV PRN PRN LINE FLUSH Nutrition/Malnutrition Assess - Dietary Evaluation Nutrition/Malnutrition Findings: Nutrition Notes Start: 02/18/20 10:34 Freq: Status: Active Protocol: Document 02/29/20 10:53 [email or web address] (Rec: 02/29/20 12:00 [email or web address]) Co-Sign 02/29/20 10:53 LM Nutrition Notes Initial or Follow up Reassessment Current Diagnosis CKD(stage I-IV),Diabetes, Sepsis,Hypertension, Hyperlipidemia Other Pertinent Diagnosis UTI, Dementia Current Diet Nepro 1.8 at 45ml/hr Labs/Tests Glucose 147 Cr 3.4 BUN 89 Pertinent Medications Reviewed Height 6 ft Weight 87.2 kg Marked [place] Body Weight (kg) 80.90 BMI 26.0 Subjective/Other Information Follow-up on TF and Bello administration. Pt is at goal rate of 45 mL/hr; flush 200 mL q4hr. Nurse reports that pt is tolerating TF well. Nurse has not seen Bello and thus has not administered the supplement. Pt was extubated. Percent of energy/protein needs met: 98%/100% Burn Absent Trauma Absent GI Symptoms None Skin Integrity/Comment Multiple pressure ulcers Current % PO Negligible Minimum of two criteria No physical signs of malnutrition #2 Nutrition Diagnosis Increased nutrient needs ( specify in comment below) Diagnosis Progress(for reassessment Continues documentation) #1 Nutrition Diagnosis Inadequate oral intake Diagnosis Progress(for reassessment Continues documentation) Is patient on ventilator? No Is Patient Ambulatory and/or Out of Bed No REE-([facility]-confined to bed) 1979.156 Calculation Used for Recommendations [facility] Additional Notes PRO needs: 69 - 130 g (0.8 - 1 .5 g/kg) Fluid needs: 1 mL/kcal Nutrition Intervention Change Diet Order: Continue TF Nutrition Support: Nepro at 45ml/hr Flush at 200ml q4hr Kcal 1,944 Protein (gm) 87 Fluid (mL) 785 % RDI: 100 Add Supplement/Snack (indicate name/kcal Bello BID /protein ) Provides kCal: 190 Provides Protein (gm) 5 Goal #1 TF tolerance Goal #2 Meet 80% of energy and protein needs via TF. Goal #3 Pt will receive Bello BID Anticipated Discharge Needs: Unable to determine at this time. Follow-Up By: 03/06/20 Additional Comments Follow up for continued tolerance and Bello administration.
[2020-03-01] MEDS: DOCUSATE SODIUM 100 MG/10 ML ORAL LIQD PO SCH ×2 (10:47→22:27)
--- NOTE | 2020-03-01 11:06 | Progress Note ---
Assessment and Plan Assessment: Acute hypoxic respiratory failure Septic Shock 2/2 PNA Bilateral PNA Acute Kidney Injury 2/2 ischemic ATN from septic shock, Rhabdo, on underlying CKD, r/o obstruction Elevated D-Dimers Plan: - non-oliguric but Cr cont to rise with IVF - will check 24 hours creatinine clearance, may to be started on HD - Review of labs in 2014 in [place] did show SCr level between 1.6-1.8 - Renal ultrasound-chronic medical renal disease. No hydronephrosis - Urine eosinophils negative, calculated protein to cr ratio 1 g, monitor - Had recent COVID infection, last 2 tests were negative - Yin Catheter: Yes - Renally dose medications - Avoid nephrotoxins - Continue to monitor Subjective Date of service: 03/01/20 Principal diagnosis: Septic Shock Interval history: no overnight events, appears comfortable Objective - Vital Signs Vital signs: Vital Signs - 12hr 02/29/20 02/29/20 03/01/20 23:35 23:36 03:54 Temperature 98 F Pulse Rate 103 H 103 H 107 H Pulse Rate [ Anterior Bilateral Throughout] Respiratory 18 Rate Respiratory Rate [Anterior Bilateral Throughout] Blood Pressure 84/42 87/36 Blood Pressure 84/42 [Right] O2 Sat by Pulse 100 100 99 Oximetry 03/01/20 03/01/20 03/01/20 03:55 07:39 09:18 Temperature 98.8 F Pulse Rate 109 H 36 L Pulse Rate [ 96 H Anterior Bilateral Throughout] Respiratory 18 17 Rate Respiratory 16 Rate [Anterior Bilateral Throughout] Blood Pressure 76/41 Blood Pressure 84/35 [Right] O2 Sat by Pulse 99 70 L Oximetry 03/01/20 09:22 Temperature Pulse Rate Pulse Rate [ Anterior Bilateral Throughout] Respiratory Rate Respiratory Rate [Anterior Bilateral Throughout] Blood Pressure Blood Pressure [Right] O2 Sat by Pulse 99 Oximetry - General Appearance General appearance: well-developed, well-nourished EENT: ATNC, PERRL, mucous membranes moist Neck: no JVD, no carotid bruit Respiratory: Present: Clear to Ascultation. Absent: Rales, Ronchi Cardiology: regular, S1S2 Gastrointestinal: normoactive bowel sounds, no tenderness Integumentary: no rash, warm and dry Neurologic: no focal deficit Musculoskeletal: other (1+ pitting edema in BLE) Psychiatric: cooperative - Lab 03/01/20 05:04 03/01/20 05:04 Most recent lab results ABG pH 7.355 pH Units (7.350-7.450) 02/19/20 05:08 ABG pCO2 27.3 mm Hg 02/19/20 05:08 ABG pO2 168.2 mm Hg (80.0-90.0) H 02/19/20 05:08 ABG HCO3 14.9 mmol/L (20.0-26.0) L 02/19/20 05:08 ABG O2 Saturation 99.0 % (95.0-99.0) 02/19/20 05:08 Calcium 7.9 mg/dL (8.4-10.2) L 03/01/20 05:04 Magnesium 1.20 mg/dL (1.7-2.3) L 02/23/20 05:36 Urine Creatinine 35.2 mg/dL (0.1-20.0) H 02/18/20 17:40 Urine Sodium 104 mmol/L 02/18/20 17:40 Urine Total Protein 38 mg/dL (5-11.8) H 02/18/20 17:40 Medications & Allergies - Medications Allergies/Adverse Reactions: Allergies No Known Allergies Allergy (Unverified 05/01/15 23:41) Home Medications: Home Medications Medication Instructions Recorded Confirmed Last Taken Type Acetaminophen [Acetaminophen TAB] 650 mg PO Q8H PRN 05/02/15 02/18/20 Unknown History Albuterol Sulfate [Albuterol 0.63% 0.63 mg IH Q6H PRN 05/02/15 02/18/20 Unknown History NEBS] Aspirin [Aspirin BABY CHEW TAB] 81 mg PO DAILY 05/02/15 02/18/20 05/01/15 History AtorvaSTATin [Lipitor] 20 mg PO QHS 05/02/15 02/18/20 05/01/15 History Docusate Sodium [Colace CAP] 100 mg PO BID 05/02/15 02/18/20 05/02/15 History Insulin Lispro [HumaLOG VIAL] See Protocol SUB-Q ACHS 05/02/15 02/18/20 05/01/15 History amLODIPine 5 mg PO DAILY 05/02/15 02/18/20 05/01/15 History Active Medications: Generic Name Dose Route Start Last Admin Trade Name Freq PRN Reason Stop Dose Admin Albuterol 2.5 mg 02/26/20 09:18 Proventil IH Q4HRT PRN Shortness Of Breath Albuterol/Ipratropium 1 ampul 02/26/20 14:00 03/01/20 07:39 Duoneb *Not For Prn Use* IH 1 ampul TIDRT LOS Administration Lipase/Protease/Amylase 1 each 02/21/20 12:12 Pancrecristiane Simon 10,500 Unit FEEDTUBE PRN PRN For Clogged Feeding Tube Aspirin 81 mg 02/18/20 10:00 02/29/20 10:00 Baby Aspirin PO 81 mg DAILY LOS Administration Atorvastatin Calcium 20 mg 02/18/20 22:00 02/29/20 21:12 Lipitor PO 20 mg QHS LOS Administration Dextrose 50 ml 02/18/20 12:55 D50w (25gm) Syringe IV Q30MIN PRN Hypoglycemia Protocol Docusate Sodium 100 mg 02/20/20 12:00 02/29/20 21:12 Colace PO 100 mg BID LOS Administration Heparin Sodium (Porcine) 5,000 unit 02/24/20 22:00 02/29/20 21:12 Heparin SUB-Q 5,000 unit Q12HR LOS Administration Hydrophilic Ointment 1 applic 02/17/20 15:12 Vaseline Lip Therapy TP Q2HR PRN Dry Lips Sodium Chloride 1,000 mls @ 125 mls/hr 03/01/20 04:15 03/01/20 04:17 Nacl 0.9% 1000 Ml IV 125 mls/hr DIRECT LOS Administration Insulin Human Regular 0 unit 02/18/20 13:00 03/01/20 05:24 Humulin R SUB-Q 3 unit Q6HR LOS Administration Protocol Magnesium Hydroxide 30 ml 02/18/20 02:31 Milk Of Magnesia PO Q4H PRN Constipation Multi-Ingred Cream/Lotion/Oil/Oint 1 applic 02/17/20 15:12 02/19/20 04:25 Artificial Tears Ophth Oint OU 1 applic Q4HR PRN Administration Dry Eye(s) Simple Syrup 15 ml 02/21/20 12:12 Simple Syrup FEEDTUBE PRN PRN Hypoglycemia Simple Syrup 30 ml 02/21/20 12:12 Simple Syrup FEEDTUBE PRN PRN Hypoglycemia Sodium Bicarbonate 325 mg 02/21/20 12:12 Sodium Bicarbonate FEEDTUBE PRN PRN For Clogged Feeding Tube Sodium Chloride 10 ml 02/18/20 10:00 02/29/20 21:12 Sodium Chloride Flush Syringe 10 Ml IV 10 ml BID LOS Administration Sodium Chloride 10 ml 02/18/20 02:31 Sodium Chloride Flush Syringe 10 Ml IV PRN PRN LINE FLUSH
[2020-03-01] MEDS: ASPIRIN 81 MG TAB CHEW PO SCH (11:23)
[2020-03-01] MEDS: HEPARIN 5,000 UNIT/1 ML VIAL SUB-Q SCH ×2 (11:23→22:27)
--- NOTE | 2020-03-01 13:13 | Progress Note ---
Assessment and Plan 74 y/o male with known dementia, mumbles very few words at baseline if any, blank stares, admitted with altered mental status, respiratory failure, worsening renal failure and sepsis with shock no new recs for today, please see below. 1. Pulm-extubated on nasal cannula. Ordered NT suction qshift. Will continue 2. CV- stable now 3. If going to [facility], or back to SNF no objection pulmonary duong for discharge. Subjective Date of service: 03/01/20 Principal diagnosis: Septic Shock Interval history: No acute events. Objective Vital Signs - 12hr 03/01/20 03/01/20 03/01/20 03:54 03:55 07:39 Temperature Pulse Rate 107 H 109 H Pulse Rate [ 96 H Anterior Bilateral Throughout] Respiratory 18 Rate Respiratory 16 Rate [Anterior Bilateral Throughout] Blood Pressure 87/36 Blood Pressure 84/35 [Right] O2 Sat by Pulse 99 99 Oximetry 03/01/20 03/01/20 09:18 09:22 Temperature 98.8 F Pulse Rate 36 L Pulse Rate [ Anterior Bilateral Throughout] Respiratory 17 Rate Respiratory Rate [Anterior Bilateral Throughout] Blood Pressure 76/41 Blood Pressure [Right] O2 Sat by Pulse 70 L 99 Oximetry Constitutional: alert ENT: other (orally intubated critically ill on vent) Neck: supple Effort: mildly labored Ascultation: Bilateral: clear, diminished breath sounds, rhonchi (Bilateral upper airway noises) Percussion: Bilateral: not dull Cardiovascular: other (sinus tachycardia) Neurologic: unable to assess CBC and BMP: 03/01/20 05:04 03/01/20 05:04 ABG, PT/INR, D-dimer: ABG ABG pH 7.355 pH Units (7.350-7.450) 02/19/20 05:08 ABG pCO2 27.3 mm Hg 02/19/20 05:08 ABG pO2 168.2 mm Hg (80.0-90.0) H 02/19/20 05:08 ABG O2 Saturation 99.0 % (95.0-99.0) 02/19/20 05:08 PT/INR, D-dimer PT 18.6 Sec. (12.2-14.9) H 02/19/20 03:20 INR 1.53 (0.87-1.13) H 02/19/20 03:20 D-Dimer 1327.30 ng/mlDDU (0-234) H 02/20/20 17:20 Abnormal lab findings: Abnormal Labs 02/17/20 02/17/20 02/17/20 16:28 16:28 16:28 WBC 23.5 H RBC 3.07 L Hgb 9.1 L Hct 28.4 L RDW 16.8 H Plt Count Lymph % (Auto) Taylor % (Auto) Eos % (Auto) Taylor # Seg Neutrophils % Seg Neuts % (Manual) 84.0 H Lymphocytes % (Manual) 8.0 L Monocytes % (Manual) 8.0 H Seg Neutrophils # Seg Neutrophils # Man 19.7 H Monocytes # (Manual) 1.9 H PT 15.3 H INR 1.19 H D-Dimer Heparin Anti-Xa Level ABG pH ABG pO2 ABG HCO3 ABG O2 Saturation ABG Base Excess ABG Hemoglobin Sodium 136 L Potassium 5.4 H Chloride Carbon Dioxide 15 L BUN 91 H Creatinine 3.7 H D Glucose 120 H POC Glucose Lactic Acid Calcium 7.9 L Magnesium Ferritin AST 65 H ALT 81 H Lactate Dehydrogenase Total Creatine Kinase CK-MB (CK-2) Troponin T C-Reactive Protein NT-Pro-B Natriuret Pep Total Protein 5.4 L Albumin 2.3 L Triglycerides HDL Cholesterol Urine WBC (Auto) Urine Creatinine Urine Chloride Urine Total Protein Crossmatch 02/17/20 02/17/20 02/17/20 16:28 16:28 16:28 WBC RBC Hgb Hct RDW Plt Count Lymph % (Auto) Taylor % (Auto) Eos % (Auto) Taylor # Seg Neutrophils % Seg Neuts % (Manual) Lymphocytes % (Manual) Monocytes % (Manual) Seg Neutrophils # Seg Neutrophils # Man Monocytes # (Manual) PT INR D-Dimer > 59316 H Heparin Anti-Xa Level ABG pH ABG pO2 ABG HCO3 ABG O2 Saturation ABG Base Excess ABG Hemoglobin Sodium Potassium Chloride Carbon Dioxide BUN Creatinine Glucose POC Glucose Lactic Acid 2.70 H* Calcium Magnesium Ferritin AST ALT Lactate Dehydrogenase Total Creatine Kinase CK-MB (CK-2) Troponin T 0.748 H* C-Reactive Protein NT-Pro-B Natriuret Pep 1980 H Total Protein Albumin Triglycerides HDL Cholesterol Urine WBC (Auto) Urine Creatinine Urine Chloride Urine Total Protein Crossmatch 02/17/20 02/17/20 02/17/20 16:28 16:28 18:35 WBC RBC Hgb Hct RDW Plt Count Lymph % (Auto) Taylor % (Auto) Eos % (Auto) Taylor # Seg Neutrophils % Seg Neuts % (Manual) Lymphocytes % (Manual) Monocytes % (Manual) Seg Neutrophils # Seg Neutrophils # Man Monocytes # (Manual) PT INR D-Dimer Heparin Anti-Xa Level ABG pH 7.303 L ABG pO2 327.3 H ABG HCO3 12.5 L ABG O2 Saturation 99.5 H ABG Base Excess -12.3 L ABG Hemoglobin 11.2 L Sodium Potassium Chloride Carbon Dioxide BUN Creatinine Glucose POC Glucose Lactic Acid Calcium Magnesium Ferritin 1191.0 H AST ALT Lactate Dehydrogenase 381 H Total Creatine Kinase CK-MB (CK-2) Troponin T C-Reactive Protein 18.20 H NT-Pro-B Natriuret Pep Total Protein Albumin Triglycerides HDL Cholesterol Urine WBC (Auto) Urine Creatinine Urine Chloride Urine Total Protein Crossmatch 02/17/20 02/18/20 02/18/20 Unknown 05:20 10:10 WBC RBC Hgb Hct RDW Plt Count Lymph % (Auto) Taylor % (Auto) Eos % (Auto) Taylor # Seg Neutrophils % Seg Neuts % (Manual) Lymphocytes % (Manual) Monocytes % (Manual) Seg Neutrophils # Seg Neutrophils # Man Monocytes # (Manual) PT INR D-Dimer Heparin Anti-Xa Level ABG pH 7.217 L ABG pO2 165.7 H ABG HCO3 10.5 L ABG O2 Saturation ABG Base Excess -15.7 L ABG Hemoglobin 10.3 L Sodium Potassium Chloride Carbon Dioxide BUN Creatinine Glucose POC Glucose Lactic Acid Calcium Magnesium Ferritin AST ALT Lactate Dehydrogenase Total Creatine Kinase 5660 H CK-MB (CK-2) 78.0 H Troponin T 1.030 H* D C-Reactive Protein NT-Pro-B Natriuret Pep Total Protein Albumin Triglycerides 164 H HDL Cholesterol 38 L Urine WBC (Auto) 17.0 H Urine Creatinine Urine Chloride Urine Total Protein Crossmatch 02/18/20 02/18/20 02/18/20 12:14 17:32 17:40 WBC RBC Hgb Hct RDW Plt Count Lymph % (Auto) Taylor % (Auto) Eos % (Auto) Taylor # Seg Neutrophils % Seg Neuts % (Manual) Lymphocytes % (Manual) Monocytes % (Manual) Seg Neutrophils # Seg Neutrophils # Man Monocytes # (Manual) PT INR D-Dimer Heparin Anti-Xa Level ABG pH ABG pO2 ABG HCO3 ABG O2 Saturation ABG Base Excess ABG Hemoglobin Sodium Potassium Chloride Carbon Dioxide BUN Creatinine Glucose POC Glucose 193 H 191 H Lactic Acid Calcium Magnesium Ferritin AST ALT Lactate Dehydrogenase Total Creatine Kinase CK-MB (CK-2) Troponin T C-Reactive Protein NT-Pro-B Natriuret Pep Total Protein Albumin Triglycerides HDL Cholesterol Urine WBC (Auto) Urine Creatinine 35.2 H Urine Chloride 81.0 L Urine Total Protein 38 H Crossmatch 02/18/20 02/19/20 02/19/20 17:40 00:04 01:50 WBC RBC Hgb Hct RDW Plt Count Lymph % (Auto) Taylor % (Auto) Eos % (Auto) Taylor # Seg Neutrophils % Seg Neuts % (Manual) Lymphocytes % (Manual) Monocytes % (Manual) Seg Neutrophils # Seg Neutrophils # Man Monocytes # (Manual) PT INR D-Dimer Heparin Anti-Xa Level 0.18 L ABG pH ABG pO2 ABG HCO3 ABG O2 Saturation ABG Base Excess ABG Hemoglobin Sodium Potassium Chloride 111.4 H Carbon Dioxide 11 L BUN 77 H Creatinine 2.8 H Glucose 168 H POC Glucose 145 H Lactic Acid Calcium 7.2 L Magnesium Ferritin AST ALT Lactate Dehydrogenase Total Creatine Kinase CK-MB (CK-2) Troponin T C-Reactive Protein NT-Pro-B Natriuret Pep Total Protein Albumin Triglycerides HDL Cholesterol Urine WBC (Auto) Urine Creatinine Urine Chloride Urine Total Protein Crossmatch 02/19/20 02/19/20 02/19/20 03:20 04:00 05:08 WBC 17.6 H RBC 2.76 L Hgb 8.1 L Hct 25.0 L RDW 16.6 H Plt Count Lymph % (Auto) 10.5 L Taylor % (Auto) Eos % (Auto) Taylor # 1.2 H Seg Neutrophils % 82.1 H Seg Neuts % (Manual) Lymphocytes % (Manual) Monocytes % (Manual) Seg Neutrophils # 14.5 H Seg Neutrophils # Man Monocytes # (Manual) PT 18.6 H INR 1.53 H D-Dimer Heparin Anti-Xa Level ABG pH ABG pO2 168.2 H ABG HCO3 14.9 L ABG O2 Saturation ABG Base Excess -9.5 L ABG Hemoglobin 8.3 L Sodium Potassium Chloride Carbon Dioxide BUN Creatinine Glucose POC Glucose Lactic Acid Calcium Magnesium Ferritin AST ALT Lactate Dehydrogenase Total Creatine Kinase CK-MB (CK-2) Troponin T C-Reactive Protein NT-Pro-B Natriuret Pep Total Protein Albumin Triglycerides HDL Cholesterol Urine WBC (Auto) Urine Creatinine Urine Chloride Urine Total Protein Crossmatch 02/19/20 02/19/20 02/19/20 05:38 05:50 09:10 WBC RBC Hgb Hct RDW Plt Count Lymph % (Auto) Taylor % (Auto) Eos % (Auto) Taylor # Seg Neutrophils % Seg Neuts % (Manual) Lymphocytes % (Manual) Monocytes % (Manual) Seg Neutrophils # Seg Neutrophils # Man Monocytes # (Manual) PT INR D-Dimer Heparin Anti-Xa Level ABG pH ABG pO2 ABG HCO3 ABG O2 Saturation ABG Base Excess ABG Hemoglobin Sodium Potassium Chloride 111.6 H 111.9 H Carbon Dioxide 14 L 15 L BUN 69 H 68 H Creatinine 2.6 H 2.5 H Glucose 151 H 154 H POC Glucose 143 H Lactic Acid Calcium 7.4 L 7.2 L Magnesium Ferritin AST ALT Lactate Dehydrogenase Total Creatine Kinase 3552 H CK-MB (CK-2) Troponin T C-Reactive Protein NT-Pro-B Natriuret Pep Total Protein Albumin Triglycerides HDL Cholesterol Urine WBC (Auto) Urine Creatinine Urine Chloride Urine Total Protein Crossmatch 02/19/20 02/19/20 02/19/20 11:41 12:00 17:46 WBC RBC Hgb Hct RDW Plt Count Lymph % (Auto) Taylor % (Auto) Eos % (Auto) Taylor # Seg Neutrophils % Seg Neuts % (Manual) Lymphocytes % (Manual) Monocytes % (Manual) Seg Neutrophils # Seg Neutrophils # Man Monocytes # (Manual) PT INR D-Dimer Heparin Anti-Xa Level 0.11 L ABG pH ABG pO2 ABG HCO3 ABG O2 Saturation ABG Base Excess ABG Hemoglobin Sodium Potassium Chloride Carbon Dioxide BUN Creatinine Glucose POC Glucose 160 H 133 H Lactic Acid Calcium Magnesium Ferritin AST ALT Lactate Dehydrogenase Total Creatine Kinase CK-MB (CK-2) Troponin T C-Reactive Protein NT-Pro-B Natriuret Pep Total Protein Albumin Triglycerides HDL Cholesterol Urine WBC (Auto) Urine Creatinine Urine Chloride Urine Total Protein Crossmatch 02/19/20 02/19/20 02/20/20 20:02 23:50 04:44 WBC RBC 2.64 L Hgb 7.9 L Hct 24.1 L RDW 16.3 H Plt Count 137 L Lymph % (Auto) Taylor % (Auto) Eos % (Auto) Taylor # Seg Neutrophils % Seg Neuts % (Manual) Lymphocytes % (Manual) Monocytes % (Manual) Seg Neutrophils # Seg Neutrophils # Man Monocytes # (Manual) PT INR D-Dimer Heparin Anti-Xa Level 0.12 L ABG pH ABG pO2 ABG HCO3 ABG O2 Saturation ABG Base Excess ABG Hemoglobin Sodium Potassium Chloride Carbon Dioxide BUN Creatinine Glucose POC Glucose 128 H Lactic Acid Calcium Magnesium Ferritin AST ALT Lactate Dehydrogenase Total Creatine Kinase CK-MB (CK-2) Troponin T C-Reactive Protein NT-Pro-B Natriuret Pep Total Protein Albumin Triglycerides HDL Cholesterol Urine WBC (Auto) Urine Creatinine Urine Chloride Urine Total Protein Crossmatch 02/20/20 02/20/20 02/20/20 04:44 04:44 10:00 WBC RBC Hgb Hct RDW Plt Count Lymph % (Auto) Taylor % (Auto) Eos % (Auto) Taylor # Seg Neutrophils % Seg Neuts % (Manual) Lymphocytes % (Manual) Monocytes % (Manual) Seg Neutrophils # Seg Neutrophils # Man Monocytes # (Manual) PT INR D-Dimer Heparin Anti-Xa Level 0.15 L < 0.10 L ABG pH ABG pO2 ABG HCO3 ABG O2 Saturation ABG Base Excess ABG Hemoglobin Sodium Potassium Chloride 110.4 H Carbon Dioxide 19 L BUN 61 H Creatinine 2.4 H Glucose POC Glucose Lactic Acid Calcium 7.3 L Magnesium Ferritin AST ALT Lactate Dehydrogenase Total Creatine Kinase 2238 H CK-MB (CK-2) Troponin T C-Reactive Protein NT-Pro-B Natriuret Pep Total Protein Albumin Triglycerides HDL Cholesterol Urine WBC (Auto) Urine Creatinine Urine Chloride Urine Total Protein Crossmatch 02/20/20 02/20/20 02/20/20 12:58 17:20 17:20 WBC RBC Hgb Hct RDW Plt Count Lymph % (Auto) Taylor % (Auto) Eos % (Auto) Taylor # Seg Neutrophils % Seg Neuts % (Manual) Lymphocytes % (Manual) Monocytes % (Manual) Seg Neutrophils # Seg Neutrophils # Man Monocytes # (Manual) PT INR D-Dimer 1327.30 H Heparin Anti-Xa Level 0.17 L ABG pH ABG pO2 ABG HCO3 ABG O2 Saturation ABG Base Excess ABG Hemoglobin Sodium Potassium Chloride Carbon Dioxide BUN Creatinine Glucose POC Glucose 123 H Lactic Acid Calcium Magnesium Ferritin AST ALT Lactate Dehydrogenase Total Creatine Kinase CK-MB (CK-2) Troponin T C-Reactive Protein NT-Pro-B Natriuret Pep Total Protein Albumin Triglycerides HDL Cholesterol Urine WBC (Auto) Urine Creatinine Urine Chloride Urine Total Protein Crossmatch 02/20/20 02/20/20 02/20/20 17:20 18:11 23:52 WBC RBC Hgb Hct RDW Plt Count Lymph % (Auto) Taylor % (Auto) Eos % (Auto) Taylor # Seg Neutrophils % Seg Neuts % (Manual) Lymphocytes % (Manual) Monocytes % (Manual) Seg Neutrophils # Seg Neutrophils # Man Monocytes # (Manual) PT INR D-Dimer Heparin Anti-Xa Level ABG pH ABG pO2 ABG HCO3 ABG O2 Saturation ABG Base Excess ABG Hemoglobin Sodium Potassium Chloride Carbon Dioxide BUN Creatinine Glucose POC Glucose 156 H 153 H Lactic Acid Calcium Magnesium Ferritin AST ALT Lactate Dehydrogenase Total Creatine Kinase CK-MB (CK-2) Troponin T 0.573 H* D C-Reactive Protein NT-Pro-B Natriuret Pep Total Protein Albumin Triglycerides HDL Cholesterol Urine WBC (Auto) Urine Creatinine Urine Chloride Urine Total Protein Crossmatch 02/21/20 02/21/20 02/21/20 04:39 04:39 05:12 WBC RBC 2.35 L Hgb 6.9 L Hct 21.1 L RDW 16.2 H Plt Count 126 L Lymph % (Auto) Taylor % (Auto) Eos % (Auto) Taylor # Seg Neutrophils % Seg Neuts % (Manual) Lymphocytes % (Manual) Monocytes % (Manual) Seg Neutrophils # Seg Neutrophils # Man Monocytes # (Manual) PT INR D-Dimer Heparin Anti-Xa Level ABG pH ABG pO2 ABG HCO3 ABG O2 Saturation ABG Base Excess ABG Hemoglobin Sodium Potassium Chloride Carbon Dioxide BUN 54 H Creatinine 2.2 H Glucose 120 H POC Glucose 139 H Lactic Acid Calcium 6.8 L Magnesium Ferritin AST ALT Lactate Dehydrogenase Total Creatine Kinase 1488 H CK-MB (CK-2) Troponin T C-Reactive Protein NT-Pro-B Natriuret Pep Total Protein Albumin Triglycerides HDL Cholesterol Urine WBC (Auto) Urine Creatinine Urine Chloride Urine Total Protein Crossmatch 02/21/20 02/21/20 02/21/20 10:47 13:24 15:41 WBC RBC Hgb Hct RDW Plt Count Lymph % (Auto) Taylor % (Auto) Eos % (Auto) Taylor # Seg Neutrophils % Seg Neuts % (Manual) Lymphocytes % (Manual) Monocytes % (Manual) Seg Neutrophils # Seg Neutrophils # Man Monocytes # (Manual) PT INR D-Dimer Heparin Anti-Xa Level < 0.10 L ABG pH ABG pO2 ABG HCO3 ABG O2 Saturation ABG Base Excess ABG Hemoglobin Sodium Potassium Chloride Carbon Dioxide BUN Creatinine Glucose POC Glucose 107 H Lactic Acid Calcium Magnesium Ferritin AST ALT Lactate Dehydrogenase Total Creatine Kinase CK-MB (CK-2) Troponin T C-Reactive Protein NT-Pro-B Natriuret Pep Total Protein Albumin Triglycerides HDL Cholesterol Urine WBC (Auto) Urine Creatinine Urine Chloride Urine Total Protein Crossmatch See Detail 02/22/20 02/22/20 02/22/20 05:13 05:13 12:24 WBC RBC 3.18 L Hgb 9.5 L Hct 27.6 L D RDW 15.9 H Plt Count 114 L Lymph % (Auto) Taylor % (Auto) Eos % (Auto) Taylor # Seg Neutrophils % Seg Neuts % (Manual) Lymphocytes % (Manual) Monocytes % (Manual) Seg Neutrophils # Seg Neutrophils # Man Monocytes # (Manual) PT INR D-Dimer Heparin Anti-Xa Level ABG pH ABG pO2 ABG HCO3 ABG O2 Saturation ABG Base Excess ABG Hemoglobin Sodium Potassium Chloride Carbon Dioxide BUN 52 H Creatinine 2.3 H Glucose 103 H POC Glucose 122 H Lactic Acid Calcium 6.7 L Magnesium Ferritin AST ALT Lactate Dehydrogenase Total Creatine Kinase 865 H CK-MB (CK-2) Troponin T C-Reactive Protein NT-Pro-B Natriuret Pep Total Protein Albumin Triglycerides HDL Cholesterol Urine WBC (Auto) Urine Creatinine Urine Chloride Urine Total Protein Crossmatch 02/22/20 02/23/20 02/23/20 17:17 05:27 05:36 WBC RBC 3.15 L Hgb 9.4 L Hct 27.6 L RDW 15.9 H Plt Count 97 L Lymph % (Auto) Taylor % (Auto) Eos % (Auto) Taylor # Seg Neutrophils % Seg Neuts % (Manual) Lymphocytes % (Manual) Monocytes % (Manual) Seg Neutrophils # Seg Neutrophils # Man Monocytes # (Manual) PT INR D-Dimer Heparin Anti-Xa Level ABG pH ABG pO2 ABG HCO3 ABG O2 Saturation ABG Base Excess ABG Hemoglobin Sodium Potassium Chloride Carbon Dioxide BUN Creatinine Glucose POC Glucose 165 H 120 H Lactic Acid Calcium Magnesium Ferritin AST ALT Lactate Dehydrogenase Total Creatine Kinase CK-MB (CK-2) Troponin T C-Reactive Protein NT-Pro-B Natriuret Pep Total Protein Albumin Triglycerides HDL Cholesterol Urine WBC (Auto) Urine Creatinine Urine Chloride Urine Total Protein Crossmatch 02/23/20 02/23/20 02/23/20 05:36 05:36 11:57 WBC RBC Hgb Hct RDW Plt Count Lymph % (Auto) Taylor % (Auto) Eos % (Auto) Taylor # Seg Neutrophils % Seg Neuts % (Manual) Lymphocytes % (Manual) Monocytes % (Manual) Seg Neutrophils # Seg Neutrophils # Man Monocytes # (Manual) PT INR D-Dimer Heparin Anti-Xa Level ABG pH ABG pO2 ABG HCO3 ABG O2 Saturation ABG Base Excess ABG Hemoglobin Sodium Potassium 3.0 L D Chloride Carbon Dioxide BUN 53 H Creatinine 2.3 H Glucose 115 H POC Glucose 162 H Lactic Acid Calcium 7.0 L Magnesium 1.20 L Ferritin AST ALT Lactate Dehydrogenase Total Creatine Kinase 476 H CK-MB (CK-2) Troponin T C-Reactive Protein NT-Pro-B Natriuret Pep Total Protein Albumin Triglycerides HDL Cholesterol Urine WBC (Auto) Urine Creatinine Urine Chloride Urine Total Protein Crossmatch 02/24/20 02/24/20 02/24/20 05:33 05:55 05:55 WBC RBC 3.17 L Hgb 9.4 L Hct 28.2 L RDW 16.1 H Plt Count 96 L Lymph % (Auto) Taylor % (Auto) Eos % (Auto) Taylor # Seg Neutrophils % Seg Neuts % (Manual) Lymphocytes % (Manual) Monocytes % (Manual) Seg Neutrophils # Seg Neutrophils # Man Monocytes # (Manual) PT INR D-Dimer Heparin Anti-Xa Level ABG pH ABG pO2 ABG HCO3 ABG O2 Saturation ABG Base Excess ABG Hemoglobin Sodium 146 H Potassium Chloride 110.0 H Carbon Dioxide BUN 69 H Creatinine 2.6 H Glucose 119 H POC Glucose 156 H Lactic Acid Calcium 7.2 L Magnesium Ferritin AST ALT Lactate Dehydrogenase Total Creatine Kinase 362 H CK-MB (CK-2) Troponin T C-Reactive Protein NT-Pro-B Natriuret Pep Total Protein Albumin Triglycerides HDL Cholesterol Urine WBC (Auto) Urine Creatinine Urine Chloride Urine Total Protein Crossmatch 02/24/20 02/24/20 02/24/20 11:51 18:35 23:41 WBC RBC Hgb Hct RDW Plt Count Lymph % (Auto) Taylor % (Auto) Eos % (Auto) Taylor # Seg Neutrophils % Seg Neuts % (Manual) Lymphocytes % (Manual) Monocytes % (Manual) Seg Neutrophils # Seg Neutrophils # Man Monocytes # (Manual) PT INR D-Dimer Heparin Anti-Xa Level ABG pH ABG pO2 ABG HCO3 ABG O2 Saturation ABG Base Excess ABG Hemoglobin Sodium Potassium Chloride Carbon Dioxide BUN Creatinine Glucose POC Glucose 155 H 134 H 148 H Lactic Acid Calcium Magnesium Ferritin AST ALT Lactate Dehydrogenase Total Creatine Kinase CK-MB (CK-2) Troponin T C-Reactive Protein NT-Pro-B Natriuret Pep Total Protein Albumin Triglycerides HDL Cholesterol Urine WBC (Auto) Urine Creatinine Urine Chloride Urine Total Protein Crossmatch 02/25/20 02/25/20 02/25/20 05:11 10:39 11:40 WBC RBC Hgb 8.6 L Hct 25.6 L RDW Plt Count 79 L Lymph % (Auto) Taylor % (Auto) Eos % (Auto) Taylor # Seg Neutrophils % Seg Neuts % (Manual) Lymphocytes % (Manual) Monocytes % (Manual) Seg Neutrophils # Seg Neutrophils # Man Monocytes # (Manual) PT INR D-Dimer Heparin Anti-Xa Level ABG pH ABG pO2 ABG HCO3 ABG O2 Saturation ABG Base Excess ABG Hemoglobin Sodium Potassium Chloride 108.6 H Carbon Dioxide BUN 77 H Creatinine 2.9 H Glucose 121 H POC Glucose 119 H Lactic Acid Calcium 7.5 L Magnesium Ferritin AST ALT Lactate Dehydrogenase Total Creatine Kinase CK-MB (CK-2) Troponin T C-Reactive Protein NT-Pro-B Natriuret Pep Total Protein Albumin Triglycerides HDL Cholesterol Urine WBC (Auto) Urine Creatinine Urine Chloride Urine Total Protein Crossmatch 02/25/20 02/25/20 02/25/20 15:24 17:21 23:18 WBC RBC Hgb Hct RDW Plt Count Lymph % (Auto) Taylor % (Auto) Eos % (Auto) Taylor # Seg Neutrophils % Seg Neuts % (Manual) Lymphocytes % (Manual) Monocytes % (Manual) Seg Neutrophils # Seg Neutrophils # Man Monocytes # (Manual) PT INR D-Dimer Heparin Anti-Xa Level ABG pH ABG pO2 ABG HCO3 ABG O2 Saturation ABG Base Excess ABG Hemoglobin Sodium Potassium Chloride Carbon Dioxide BUN Creatinine Glucose POC Glucose 138 H 139 H 109 H Lactic Acid Calcium Magnesium Ferritin AST ALT Lactate Dehydrogenase Total Creatine Kinase CK-MB (CK-2) Troponin T C-Reactive Protein NT-Pro-B Natriuret Pep Total Protein Albumin Triglycerides HDL Cholesterol Urine WBC (Auto) Urine Creatinine Urine Chloride Urine Total Protein Crossmatch 02/26/20 02/26/20 02/26/20 05:55 12:12 13:02 WBC RBC Hgb Hct RDW Plt Count Lymph % (Auto) Taylor % (Auto) Eos % (Auto) Taylor # Seg Neutrophils % Seg Neuts % (Manual) Lymphocytes % (Manual) Monocytes % (Manual) Seg Neutrophils # Seg Neutrophils # Man Monocytes # (Manual) PT INR D-Dimer Heparin Anti-Xa Level ABG pH ABG pO2 ABG HCO3 ABG O2 Saturation ABG Base Excess ABG Hemoglobin Sodium 146 H Potassium Chloride 112.7 H Carbon Dioxide 20 L BUN 81 H Creatinine 3.0 H Glucose 123 H POC Glucose 111 H 128 H Lactic Acid Calcium 7.9 L Magnesium Ferritin AST ALT Lactate Dehydrogenase Total Creatine Kinase CK-MB (CK-2) Troponin T C-Reactive Protein NT-Pro-B Natriuret Pep Total Protein Albumin Triglycerides HDL Cholesterol Urine WBC (Auto) Urine Creatinine Urine Chloride Urine Total Protein Crossmatch 02/26/20 02/26/20 02/27/20 17:57 23:16 06:05 WBC RBC 2.84 L Hgb 8.5 L Hct 25.0 L RDW 15.8 H Plt Count 65 L Lymph % (Auto) Taylor % (Auto) 12.1 H Eos % (Auto) 5.1 H Taylor # Seg Neutrophils % Seg Neuts % (Manual) Lymphocytes % (Manual) Monocytes % (Manual) Seg Neutrophils # Seg Neutrophils # Man Monocytes # (Manual) PT INR D-Dimer Heparin Anti-Xa Level ABG pH ABG pO2 ABG HCO3 ABG O2 Saturation ABG Base Excess ABG Hemoglobin Sodium Potassium Chloride Carbon Dioxide BUN Creatinine Glucose POC Glucose 156 H 168 H Lactic Acid Calcium Magnesium Ferritin AST ALT Lactate Dehydrogenase Total Creatine Kinase CK-MB (CK-2) Troponin T C-Reactive Protein NT-Pro-B Natriuret Pep Total Protein Albumin Triglycerides HDL Cholesterol Urine WBC (Auto) Urine Creatinine Urine Chloride Urine Total Protein Crossmatch 02/27/20 02/27/20 02/27/20 06:05 11:44 19:00 WBC RBC Hgb Hct RDW Plt Count Lymph % (Auto) Taylor % (Auto) Eos % (Auto) Taylor # Seg Neutrophils % Seg Neuts % (Manual) Lymphocytes % (Manual) Monocytes % (Manual) Seg Neutrophils # Seg Neutrophils # Man Monocytes # (Manual) PT INR D-Dimer Heparin Anti-Xa Level ABG pH ABG pO2 ABG HCO3 ABG O2 Saturation ABG Base Excess ABG Hemoglobin Sodium 146 H Potassium Chloride 110.2 H Carbon Dioxide BUN 80 H Creatinine 3.3 H Glucose POC Glucose 116 H 134 H Lactic Acid Calcium 7.8 L Magnesium Ferritin AST ALT Lactate Dehydrogenase Total Creatine Kinase CK-MB (CK-2) Troponin T C-Reactive Protein NT-Pro-B Natriuret Pep Total Protein Albumin Triglycerides HDL Cholesterol Urine WBC (Auto) Urine Creatinine Urine Chloride Urine Total Protein Crossmatch 02/27/20 02/28/20 02/28/20 23:52 04:52 04:52 WBC RBC 2.73 L Hgb 8.1 L Hct 23.9 L RDW 15.9 H Plt Count 74 L Lymph % (Auto) Taylor % (Auto) 14.1 H Eos % (Auto) Taylor # 1.0 H Seg Neutrophils % Seg Neuts % (Manual) Lymphocytes % (Manual) Monocytes % (Manual) Seg Neutrophils # Seg Neutrophils # Man Monocytes # (Manual) PT INR D-Dimer Heparin Anti-Xa Level ABG pH ABG pO2 ABG HCO3 ABG O2 Saturation ABG Base Excess ABG Hemoglobin Sodium Potassium Chloride 107.5 H Carbon Dioxide BUN 81 H Creatinine 3.0 H Glucose 128 H POC Glucose 117 H Lactic Acid Calcium 7.7 L Magnesium Ferritin AST ALT Lactate Dehydrogenase Total Creatine Kinase CK-MB (CK-2) Troponin T C-Reactive Protein NT-Pro-B Natriuret Pep Total Protein Albumin Triglycerides HDL Cholesterol Urine WBC (Auto) Urine Creatinine Urine Chloride Urine Total Protein Crossmatch 02/28/20 02/28/20 02/28/20 05:52 12:19 16:24 WBC RBC Hgb Hct RDW Plt Count Lymph % (Auto) Taylor % (Auto) Eos % (Auto) Taylor # Seg Neutrophils % Seg Neuts % (Manual) Lymphocytes % (Manual) Monocytes % (Manual) Seg Neutrophils # Seg Neutrophils # Man Monocytes # (Manual) PT INR D-Dimer Heparin Anti-Xa Level ABG pH ABG pO2 ABG HCO3 ABG O2 Saturation ABG Base Excess ABG Hemoglobin Sodium Potassium Chloride Carbon Dioxide BUN Creatinine Glucose POC Glucose 148 H 152 H 118 H Lactic Acid Calcium Magnesium Ferritin AST ALT Lactate Dehydrogenase Total Creatine Kinase CK-MB (CK-2) Troponin T C-Reactive Protein NT-Pro-B Natriuret Pep Total Protein Albumin Triglycerides HDL Cholesterol Urine WBC (Auto) Urine Creatinine Urine Chloride Urine Total Protein Crossmatch 02/29/20 02/29/20 02/29/20 00:12 05:21 06:00 WBC RBC 2.73 L Hgb 8.2 L Hct 24.0 L RDW 16.4 H Plt Count 88 L Lymph % (Auto) Taylor % (Auto) 13.9 H Eos % (Auto) Taylor # 1.2 H Seg Neutrophils % Seg Neuts % (Manual) Lymphocytes % (Manual) Monocytes % (Manual) Seg Neutrophils # Seg Neutrophils # Man Monocytes # (Manual) PT INR D-Dimer Heparin Anti-Xa Level ABG pH ABG pO2 ABG HCO3 ABG O2 Saturation ABG Base Excess ABG Hemoglobin Sodium Potassium Chloride Carbon Dioxide BUN Creatinine Glucose POC Glucose 144 H 184 H Lactic Acid Calcium Magnesium Ferritin AST ALT Lactate Dehydrogenase Total Creatine Kinase CK-MB (CK-2) Troponin T C-Reactive Protein NT-Pro-B Natriuret Pep Total Protein Albumin Triglycerides HDL Cholesterol Urine WBC (Auto) Urine Creatinine Urine Chloride Urine Total Protein Crossmatch 02/29/20 02/29/20 02/29/20 06:00 12:19 16:13 WBC RBC Hgb Hct RDW Plt Count Lymph % (Auto) Taylor % (Auto) Eos % (Auto) Taylor # Seg Neutrophils % Seg Neuts % (Manual) Lymphocytes % (Manual) Monocytes % (Manual) Seg Neutrophils # Seg Neutrophils # Man Monocytes # (Manual) PT INR D-Dimer Heparin Anti-Xa Level ABG pH ABG pO2 ABG HCO3 ABG O2 Saturation ABG Base Excess ABG Hemoglobin Sodium Potassium Chloride Carbon Dioxide BUN 89 H Creatinine 3.4 H Glucose 147 H POC Glucose 167 H 175 H Lactic Acid Calcium 7.7 L Magnesium Ferritin AST ALT Lactate Dehydrogenase Total Creatine Kinase CK-MB (CK-2) Troponin T C-Reactive Protein NT-Pro-B Natriuret Pep Total Protein Albumin Triglycerides HDL Cholesterol Urine WBC (Auto) Urine Creatinine Urine Chloride Urine Total Protein Crossmatch 03/01/20 03/01/20 03/01/20 00:00 05:04 05:04 WBC RBC 2.58 L Hgb 7.6 L Hct 23.1 L RDW 15.9 H Plt Count 121 L Lymph % (Auto) Taylor % (Auto) 13.7 H Eos % (Auto) Taylor # 1.3 H Seg Neutrophils % Seg Neuts % (Manual) Lymphocytes % (Manual) Monocytes % (Manual) Seg Neutrophils # Seg Neutrophils # Man Monocytes # (Manual) PT INR D-Dimer Heparin Anti-Xa Level ABG pH ABG pO2 ABG HCO3 ABG O2 Saturation ABG Base Excess ABG Hemoglobin Sodium Potassium Chloride 108.5 H Carbon Dioxide BUN 99 H Creatinine 3.9 H Glucose 117 H POC Glucose 159 H Lactic Acid Calcium 7.9 L Magnesium Ferritin AST ALT Lactate Dehydrogenase Total Creatine Kinase CK-MB (CK-2) Troponin T C-Reactive Protein NT-Pro-B Natriuret Pep Total Protein Albumin Triglycerides HDL Cholesterol Urine WBC (Auto) Urine Creatinine Urine Chloride Urine Total Protein Crossmatch 03/01/20 03/01/20 05:34 12:27 WBC RBC Hgb Hct RDW Plt Count Lymph % (Auto) Taylor % (Auto) Eos % (Auto) Taylor # Seg Neutrophils % Seg Neuts % (Manual) Lymphocytes % (Manual) Monocytes % (Manual) Seg Neutrophils # Seg Neutrophils # Man Monocytes # (Manual) PT INR D-Dimer Heparin Anti-Xa Level ABG pH ABG pO2 ABG HCO3 ABG O2 Saturation ABG Base Excess ABG Hemoglobin Sodium Potassium Chloride Carbon Dioxide BUN Creatinine Glucose POC Glucose 153 H 135 H Lactic Acid Calcium Magnesium Ferritin AST ALT Lactate Dehydrogenase Total Creatine Kinase CK-MB (CK-2) Troponin T C-Reactive Protein NT-Pro-B Natriuret Pep Total Protein Albumin Triglycerides HDL Cholesterol Urine WBC (Auto) Urine Creatinine Urine Chloride Urine Total Protein Crossmatch
--- NOTE | 2020-03-01 13:20 | Progress Note ---
Assessment and Plan Cultures: Coronavirus PCR 02/05/2020: Negative Coronavirus PCR 02/10/2020: Negative Coronavirus PCR 02/18/2020: Negative MRSA nasal PCR 02/05/2020: Positive 02/04/2020 blood culture: No growth 02/04/2020 tracheal aspirate: Proteus, Hemophilus, MRSA 02/14/2020 blood culture: No growth 02/17/2020 tracheal aspirate: normal resp demetrius 02/17/2020 blood culture: No growth today 02/28/2020 blood culture: Pending A/P: 74 y/o male with history of CVA with left hemiparesis, diabetes mellitus, hypertension, dyslipidemia, dementia and peripheral vascular disease, from [facility], recent COVID, admitted on due to AMS and low O2 sats: #Severe sepsis with septic shock: Resolved #Bilateral pneumonia: likely bacterial pneumonia. COVID markers elevated Ferritin 1191. Ddmer >10,000. CRP 18. LDH 381. Recent sputum cx with PMDR Proteus, MRSA. H flu. MRSA PCR positive. Elevated procal however possible due to renal failure #Acute resp failure: Now extubated. #Elevated LFTs: from sepsis #AMMY on CKD: renally adjusted meds, required HD during previous admission Recs: -Procalcitonin elevated, unclear significance given renal function. -Follow-up blood cultures. Negative thus far. -If recurrent fevers we will start empiric antibiotics. -Agree with full anticoagulation OK for DC from ID perspective. High risk mortality / guarded prognosis consider palliative care Edel Saenz MD [facility] M: [phone] O: [phone] F: [phone] Subjective Date of service: 03/01/20 Principal diagnosis: Septic Shock Interval history: Afebrile for the last few days. Normal white count. Objective - Exam Narrative Exam: Constitutional: Extubated on nasal cannula Head, Ears, Nose: Normocephalic, atraumatic. External ears, nose normal Oral: Limited Eyes: Conjunctivae/corneas clear. No icterus. No ptosis. Neck: limited Cardiovascular: tachy Respiratory: limited GI: limited Musculoskeletal: limited Skin: limited Hem/Lymphatic: limited Psych: limited Neurological: limited - Constitutional Vitals: Vital Signs Temp Pulse Resp BP Pulse Ox 98.8 F 36 L 17 76/41 99 09/10/20 09:18 03/01/20 09:18 03/01/20 09:18 03/01/20 09:18 03/01/20 09:22 Temperature -Last 24 Hours Temperature 98.8 F Temperature 98 F Temperature 99.2 F Temperature 98.9 F - Labs CBC & Chem 7: 03/01/20 05:04 03/01/20 05:04 Labs: Abnormal lab results 02/29/20 03/01/20 03/01/20 Range/Units 16:13 00:00 05:04 RBC 2.58 L (3.65-5.03) M/mm3 Hgb 7.6 L (11.8-15.2) gm/dl Hct 23.1 L (35.5-45.6) % RDW 15.9 H (13.2-15.2) % Plt Count 121 L (140-440) K/mm3 [place] % (Auto) 13.7 H (0.0-7.3) % [place] # 1.3 H (0.0-0.8) K/mm3 Chloride (98-107) mmol/L BUN (9-20) mg/dL Creatinine (0.8-1.3) mg/dL Glucose (75-100) mg/dL POC Glucose 175 H 159 H (70-105) Calcium (8.4-10.2) mg/dL 03/01/20 03/01/20 03/01/20 Range/Units 05:04 05:34 12:27 RBC (3.65-5.03) M/mm3 Hgb (11.8-15.2) gm/dl Hct (35.5-45.6) % RDW (13.2-15.2) % Plt Count (140-440) K/mm3 [place] % (Auto) (0.0-7.3) % [place] # (0.0-0.8) K/mm3 Chloride 108.5 H (98-107) mmol/L BUN 99 H (9-20) mg/dL Creatinine 3.9 H (0.8-1.3) mg/dL Glucose 117 H (75-100) mg/dL POC Glucose 153 H 135 H (70-105) Calcium 7.9 L (8.4-10.2) mg/dL
--- NOTE | 2020-03-01 15:32 | Event Note ---
Date: 03/01/20 Ethics committee evaluation and recommendations: At the request of the patient's primary team, an ethics consultation was placed. The patient is a 74-year-old male who is currently a [facility] a penit[facility] for the past 5 years with no living relatives. His decision making has been made by his friend of 16 j[address] Mar[address]. She is unable to make decisions regarding allow natural per [place] law. Over the past 2 visits, the patient presented with left CVA, pneumonia, COVID positive prior to presentation of the hospital and failure to thrive. The patient has had a significant decline in his mental status and abilities over his last 2 hospital admissions and is also currently unable to feed himself failing speech evaluation. The patient's friend has had multiple discussions with the patient over the years and the patient has no desire to be placed on breathing machines to prolong his life. Given his current status, the decision was made to change his status from full code to allow natural . A discussion was also held with the family friend regarding the patient's wishes regarding long-term feeding. The pat ient's options were presented. She expressed that she did not feel like he would want to have a feeding tube placed however that decision was not finalized. The family friend was allowed to fill out the affidavit allowing her to legally make consent decisions. Additional discussions will need to be held with the family friend to determine if she feels as though the patient would want the placement of a PEG tube and also a discussion of the risks to the patient of placing this tube.
--- NOTE | 2020-03-01 15:43 | Event Note ---
Date: 03/01/20 We had a detailed meeting with patient's adult friend/sister Ms. Arun Nino Ethics committee members, patient's nurse, I as an attending physician, discussed in detail about the patient's condition, poor prognosis Goals of treatment, CODE STATUS, options of hospice, palliative care, options of PEG placement, comfort care discussed with Ms. Dias Answered all her questions, after much thought and consideration, she and the ethics committee, have decided on DNR status And Ms. Arun iNno clearly indicated that she knows Mr. Jake Peña for a long time and that he would not want intubation and ventilator Life support resuscitations and even PEG/tube feedings. Family Arun reviewed some documents and decided DNR and no PEG feeds. GI consult was canceled. Plan of care reviewed with the patient's nurse, case management Hospice was consulted
--- NOTE | 2020-03-01 16:49 | Event Note ---
Date: 03/01/20 full consult for peg previously done - events of today noted and pt probably not for peg per friend wishes (per staff) - if desires peg please recall
[2020-03-02] MEDS: INSULIN REGULAR, HUMAN 100 UNIT/ML 3ML VIAL SUB-Q SCH ×4 (00:19→19:51)
[2020-03-02] MEDS: IPRATROPIUM/ALBUTEROL SULFATE 3 ML AMPUL.NEB IH SCH ×3 (08:26→20:45)
--- NOTE | 2020-03-02 09:11 | Consultation ---
REFERRING PHYSICIAN: Ayla Ludwig MD INDICATIONS: 1. Dysphagia. 2. PEG tube. HISTORY OF PRESENT ILLNESS: The patient is a 74-year-old male who was admitted on 02/17/2020. The patient has a history of a CVA with left hemiparesis, diabetes, hypertension, high cholesterol and dementia. The patient had a recent COVID. The patient re-presented and was admitted. The patient since that time has had evaluation and was found to be in sepsis and septic shock with bilateral pneumonia. The patient now has had poor p.o. intake and GI is consulted for PEG tube placement. History as per chart. PAST MEDICAL HISTORY: Includes: 1. History of cerebrovascular accident. 2. Diabetes. 3. Hypertension. 4. High cholesterol. 5. Dementia. ALLERGIES: No known drug allergies. MEDICATIONS: Reviewed and updated in chart. SOCIAL HISTORY: No alcohol or tobacco. FAMILY HISTORY: No colon cancer. REVIEW OF SYSTEMS: GENERAL: Reported weakness. HEENT: No visual complaints. PULMONARY: Shortness of breath. CARDIOVASCULAR: Denies chest pain. GASTROINTESTINAL: No ____ complaint. All points of 13-point review of systems per chart, negative. PHYSICAL EXAMINATION: VITAL SIGNS: Temperature 98.8, pulse 76, respirations 17, blood pressure 76/41. GENERAL: Fairly thin, in no acute distress. HEENT: Pupils are round. PULMONARY: Rhonchi. CARDIOVASCULAR: Regular rate and rhythm. ABDOMEN: Soft. LABORATORY DATA: White count 9.3, hemoglobin and hematocrit of 7.6 and 23.1, platelet count of 121. ASSESSMENT: A 74-year-old male, poor p.o. intake with past medical history as noted above. Now for possible PEG tube placement. I discussed with staff and there is a question as to whether or not the patient will be cleared as there is to be an ethics committee meeting. We will await further word. PLAN: 1. Await ethics committee meeting and recommendations as to whether or not to proceed with PEG. 2. We will follow up ____. JOB# [id number] CAB/NTS
[2020-03-02] MEDS: ASPIRIN 81 MG TAB CHEW PO SCH (09:18)
[2020-03-02] MEDS: DOCUSATE SODIUM 100 MG/10 ML ORAL LIQD PO SCH ×2 (09:18→21:30)
[2020-03-02] MEDS: HEPARIN 5,000 UNIT/1 ML VIAL SUB-Q SCH ×2 (09:19→21:30)
[2020-03-02 09:22] LABS: Basophils % (Auto) 0.3 % (0.0-1.8); Eosinophils # (Auto) 0.1 K/mm3 (0.0-0.4); Eosinophils % (Auto) 1.6 % (0.0-4.3); Lymphocytes # (Auto) 1.7 K/mm3 (1.2-5.4); Lymphocytes % (Auto) 19.3 % (13.4-35.0); Mean Corpuscular HGB Conc 34 % (32-34); Mean Corpuscular Volume 90 fl (84-94); Monocytes % (Auto) 11.8 % (0.0-7.3); Platelet Count 130 K/mm3 (140-440); Red Blood Count 1.78 M/mm3 (3.65-5.03); Red Cell Distribution Width 16.5 % (13.2-15.2)
[2020-03-02] MEDS: SODIUM CHLORIDE 0.9% 1000 ML 1,000 ML IV SCH ×2 (09:23→17:53)
[2020-03-02 09:33] LABS: Hemoglobin 5.4 gm/dl (11.8-15.2)
[2020-03-02 09:41] LABS: Calcium 5.8 mg/dL (8.4-10.2)
--- NOTE | 2020-03-02 10:33 | Progress Note ---
Assessment and Plan Assessment and plan: --Hypokalemia/hypophosphatemia/hypocalcemia Replenished with potassium phosphate, calcium --Severe anemia; hemoglobin of 5.4; Ms. Mica Waterman consented for blood transfusion Transfuse 2 units of PRBC stat Closely monitor H&H --Dysphagia; oropharyngeal Oropharyngeal dysphagia per speech therapist Patient needs PEG placement However patient's adult friend Ms. Marquez Who expressed that Mr. Bernardo Joseph would not want to have PEG tube. Does not want the PEG tube placement GI consult was discontinued --Sepsis; right pneumonia/HCAP s/p Vanco and cefepime , Monitor off antibiotics ID following follow cultures, supportive care ID,Pulm following --New episodes of fever; Patient already completed course of antibiotics for sepsis/pneumonia Check new set of blood cultures, monitor off antibiotics ID following --Bilateral pneumonia; present on initial admission As noted above. COVID markers elevated Ferritin 1191. Ddmer >10,000. CRP 18. LDH 381. Recent sputum cx with PMDR Proteus, MRSA. H flu. MRSA PCR positive. --elevated D-dimers More than 10,000, V/Q scan low probability for PE lower extremity venous Doppler,neg DVT dc heparin Drip, prophylactic anticoagulation --Rhabdomyolysis; Continue IV fluids, input output monitoring, CK levels trending down CK [id number] We will monitor renal function --COVID-19 test negative x2 during last admission Test negative during this admission 02/18/2020 However patient has very high levels of inflammatory markers ID consulted, trend the markers --Acute resp failure with hypoxia/extubated 02/19/2020 on nasal cannula oxygen, saturating well Very high ddimer suspect PE post COVID. --Acute kidney injury on chronic kidney disease Secondary to ATN, gentle hydration Avoid nephrotoxins, monitor renal function Nephrology following -- DVT prophylaxis SCD, Heparin ,renal dose PT OT, DC planning 02/24/2020. Patient extubated yesterday and tolerated nasal cannula. Patient's baseline creatinine appears to be 1.6-1.8 2014. Continue IV fluid hydration per nephrology recommendations. CK level was elevated. Therefore, etiology may be from acute kidney injury and rhabdomyolysis. Renal ultrasound revealed chronic medical renal disease and no hydronephrosis. Urine eosinophils negative. Awaiting placement. I discussed the case with case management. 02/25/2020. Patient currently with nasogastric tube and tube feedings at 45 cc an hour. Speech evaluation for swallowing. Patient currently with nasal cannula 3 L O2. Creatinine remains elevated. Recheck BMP. Continue free water flushes 200 ml q 4 hrs via NGT for hypernatremia. Urine eosinophils negative, calculated protein to cr ratio 1 g, monitor. Continue vancomycin and cefepime per ID recommendations. 02/26/2020. Speech therapy evaluation reports oropharyngeal dysphagia. Patient will likely need PEG tube placement. Attempted to call family renetta Marquez to discuss possible PEG placement, no answer. Patient with adequate urine output but creatinine still not improved significantly. Albumin 25% 100 mls q6H X 3 doses. Continue per nephrology recommendations. Antibiotics discontinued yesterday per ID recommendations. 02/27/2020. Speech therapy evaluation reports oropharyngeal dysphagia. Patient will likely need PEG tube placement. Attempted to call family Mica Marquez to discuss possible PEG placement, no answer. We will need case management for assistance. Continue per ID and nephrology recommendations. 02/27; follow speech and swallow evaluation, possible PEG placement, consult GI once family is agreeable, unable to reach family 02/28; patient needs PEG placement, unable to contact real family members, I talked to [person to contact /next of kin as per medical records] Ms.Sparks Nino Who agreed for DNR status, is not the real family member per case management/patient human resources hr representative . Will check with [facility] and try to find next of kin/family member for consent for PEG placement as well as consent for DNR/hospice status. 03/01; family and ethics committee meeting, to decide CODE STATUS and PEG placement 03/02; patient has multiple electrolyte abnormalities, severe anemia, 2 units PRBC transfusion now, poor prognosis, DNR status Considering hospice History Interval history: I have seen and examined the patient at the bedside this afternoon Patient's chart and medications reviewed Patient is critically ill unresponsive Severe anemia with hemoglobin of 5.4 Will order 2 units of PRBC for stat transfusion Patient is hypotensive, fluid bolus if needed Hospitalist Physical - Constitutional Vitals: Temp Pulse Resp BP Pulse Ox 98.2 F 103 H 18 92/52 99 03/02/20 08:07 03/02/20 08:26 03/02/20 08:26 03/02/20 08:07 03/02/20 08:07 General appearance: Present: mild distress, well-nourished, other (confused, chronically ill looking, noncommunicative) - EENT Eyes: Present: PERRL, EOM intact - Neck Neck: Present: supple, normal ROM - Respiratory Respiratory effort: normal Respiratory: bilateral: diminished, rhonchi, negative: rales, wheezing - Cardiovascular Rhythm: regular Heart Sounds: Present: S1 & S2 - Extremities Extremities: no ischemia, No edema - Abdominal General gastrointestinal: soft, non-tender, non-distended, normal bowel sounds - Integumentary Integumentary: Present: clear, warm - Psychiatric Psychiatric: other (Noncommunicative) - Neurologic Neurologic: other (Noncommunicative) HEART Score - HEART Score Troponin: Troponin T 0.573 ng/mL (0.00-0.029) H* D 02/20/20 17:20 Results - Labs CBC & Chem 7: 03/03/20 06:46 03/03/20 06:46 Labs: Laboratory Last Values WBC 8.6 K/mm3 (4.5-11.0) 03/02/20 08:41 RBC 1.78 M/mm3 (3.65-5.03) L 03/02/20 08:41 Hgb 5.4 gm/dl (11.8-15.2) L* 03/02/20 08:41 Hct 16.0 % (35.5-45.6) L* D 03/02/20 08:41 MCV 90 fl (84-94) 03/02/20 08:41 MCH 30 pg (28-32) 03/02/20 08:41 MCHC 34 % (32-34) 03/02/20 08:41 RDW 16.5 % (13.2-15.2) H 03/02/20 08:41 Plt Count 130 K/mm3 (140-440) L 03/02/20 08:41 Lymph % (Auto) 19.3 % (13.4-35.0) 03/02/20 08:41 [place] % (Auto) 11.8 % (0.0-7.3) H 03/02/20 08:41 Eos % (Auto) 1.6 % (0.0-4.3) 03/02/20 08:41 Baso % (Auto) 0.3 % (0.0-1.8) 03/02/20 08:41 Lymph # 1.7 K/mm3 (1.2-5.4) 03/02/20 08:41 Hubbard # 1.0 K/mm3 (0.0-0.8) H 03/02/20 08:41 Eos # 0.1 K/mm3 (0.0-0.4) 03/02/20 08:41 Baso # 0.0 K/mm3 (0.0-0.1) 03/02/20 08:41 Add Manual Diff Complete 02/17/20 16:28 Total Counted 100 02/17/20 16:28 Seg Neutrophils % 67.0 % (40.0-70.0) 03/02/20 08:41 Seg Neuts % (Manual) 84.0 % (40.0-70.0) H 02/17/20 16:28 Band Neutrophils % 0 % 02/17/20 16:28 Lymphocytes % (Manual) 8.0 % (13.4-35.0) L 02/17/20 16:28 Reactive Lymphs % (Man) 0 % 02/17/20 16:28 Monocytes % (Manual) 8.0 % (0.0-7.3) H 02/17/20 16:28 Eosinophils % (Manual) 0 % (0.0-4.3) 02/17/20 16:28 Basophils % (Manual) 0 % (0.0-1.8) 02/17/20 16:28 Metamyelocytes % 0 % 02/17/20 16:28 Myelocytes % 0 % 02/17/20 16:28 Promyelocytes % 0 % 02/17/20 16:28 Blast Cells % 0 % 02/17/20 16:28 Nucleated RBC % Not Reportable 02/17/20 16:28 Seg Neutrophils # 5.8 K/mm3 (1.8-7.7) 03/02/20 08:41 Seg Neutrophils # Man 19.7 K/mm3 (1.8-7.7) H 02/17/20 16:28 Band Neutrophils # 0.0 K/mm3 02/17/20 16:28 Lymphocytes # (Manual) 1.9 K/mm3 (1.2-5.4) 02/17/20 16:28 Abs React Lymphs (Man) 0.0 K/mm3 02/17/20 16:28 Monocytes # (Manual) 1.9 K/mm3 (0.0-0.8) H 02/17/20 16:28 Eosinophils # (Manual) 0.0 K/mm3 (0.0-0.4) 02/17/20 16:28 Basophils # (Manual) 0.0 K/mm3 (0.0-0.1) 02/17/20 16:28 Metamyelocytes # 0.0 K/mm3 02/17/20 16:28 Myelocytes # 0.0 K/mm3 02/17/20 16:28 Promyelocytes # 0.0 K/mm3 02/17/20 16:28 Blast Cells # 0.0 K/mm3 02/17/20 16:28 WBC Morphology Not Reportable 02/17/20 16:28 Hypersegmented Neuts Not Reportable 02/17/20 16:28 Hyposegmented Neuts Not Reportable 02/17/20 16:28 Hypogranular Neuts Not Reportable 02/17/20 16:28 Smudge Cells Not Reportable 02/17/20 16:28 Toxic Granulation Not Reportable 02/17/20 16:28 Toxic Vacuolation Not Reportable 02/17/20 16:28 Dohle Bodies Not Reportable 02/17/20 16:28 Pelger-Huet Anomaly Not Reportable 02/17/20 16:28 Krys Rods Not Reportable 02/17/20 16:28 Platelet Estimate Not Reportable 02/17/20 16:28 Clumped Platelets Not Reportable 02/17/20 16:28 Plt Clumps, EDTA Not Reportable 02/17/20 16:28 Large Platelets Not Reportable 02/17/20 16:28 Giant Platelets Not Reportable 02/17/20 16:28 Platelet Satelliting Not Reportable 02/17/20 16:28 Plt Morphology Comment Not Reportable 02/17/20 16:28 RBC Morphology Normal 02/17/20 16:28 Dimorphic RBCs Not Reportable 02/17/20 16:28 Polychromasia Not Reportable 02/17/20 16:28 Hypochromasia Not Reportable 02/17/20 16:28 Poikilocytosis Not Reportable 02/17/20 16:28 Anisocytosis Not Reportable 02/17/20 16:28 Microcytosis Not Reportable 02/17/20 16:28 Macrocytosis Not Reportable 02/17/20 16:28 Spherocytes Not Reportable 02/17/20 16:28 Pappenheimer Bodies Not Reportable 02/17/20 16:28 Sickle Cells Not Reportable 02/17/20 16:28 Target Cells Not Reportable 02/17/20 16:28 Tear Drop Cells Not Reportable 02/17/20 16:28 Ovalocytes Not Reportable 02/17/20 16:28 Helmet Cells Not Reportable 02/17/20 16:28 Lazo-Inniswold Bodies Not Reportable 02/17/20 16:28 Caroleen Rings Not Reportable 02/17/20 16:28 Jessup Cells Not Reportable 02/17/20 16:28 Bite Cells Not Reportable 02/17/20 16:28 Crenated Cell Not Reportable 02/17/20 16:28 Elliptocytes Not Reportable 02/17/20 16:28 Acanthocytes (Spur) Not Reportable 02/17/20 16:28 Rouleaux Not Reportable 02/17/20 16:28 Hemoglobin C Crystals Not Reportable 02/17/20 16:28 Schistocytes Not Reportable 02/17/20 16:28 Malaria parasites Not Reportable 02/17/20 16:28 Keron Bodies Not Reportable 02/17/20 16:28 Hem Pathologist Commnt No 02/17/20 16:28 PT 18.6 Sec. (12.2-14.9) H 02/19/20 03:20 INR 1.53 (0.87-1.13) H 02/19/20 03:20 APTT 26.8 Sec. (24.2-36.6) 02/17/20 16:28 D-Dimer 1327.30 ng/mlDDU (0-234) H 02/20/20 17:20 Heparin Anti-Xa Level < 0.10 U.I./ml (0.3-0.7) L 02/21/20 15:41 ABG pH 7.355 pH Units (7.350-7.450) 02/19/20 05:08 ABG pCO2 27.3 mm Hg 02/19/20 05:08 ABG pO2 168.2 mm Hg (80.0-90.0) H 02/19/20 05:08 ABG HCO3 14.9 mmol/L (20.0-26.0) L 02/19/20 05:08 ABG O2 Saturation 99.0 % (95.0-99.0) 02/19/20 05:08 ABG O2 Content 11.7 (0.0-44) 02/19/20 05:08 ABG Base Excess -9.5 mmol/L (-2.0-3.0) L 02/19/20 05:08 ABG Hemoglobin 8.3 gm/dl (14.0-18.0) L 02/19/20 05:08 ABG Carboxyhemoglobin 1.2 % (0.0-5.0) 02/19/20 05:08 ABG Methemoglobin 0.7 % (0.0-1.5) 02/19/20 05:08 Oxyhemoglobin 97.2 % (95.0-99.0) 02/19/20 05:08 FiO2 40 % 02/19/20 05:08 Sodium 146 mmol/L (137-145) H 03/02/20 08:41 Potassium 3.0 mmol/L (3.6-5.0) L D 03/02/20 08:41 Chloride 118.9 mmol/L (98-107) H 03/02/20 08:41 Carbon Dioxide 17 mmol/L (22-30) L D 03/02/20 08:41 Anion Gap 13 mmol/L 03/02/20 08:41 BUN 80 mg/dL (9-20) H 03/02/20 08:41 Creatinine 3.4 mg/dL (0.8-1.3) H 03/02/20 08:41 Estimated GFR 21 ml/min 03/02/20 08:41 BUN/Creatinine Ratio 24 % 03/02/20 08:41 Glucose 103 mg/dL (75-100) H 03/02/20 08:41 POC Glucose 141 (70-105) H 03/02/20 08:24 Lactic Acid 1.90 mmol/L (0.7-2.0) 02/17/20 22:56 Calcium 5.8 mg/dL (8.4-10.2) L* D 03/02/20 08:41 Phosphorus 1.20 mg/dL (2.5-4.5) L 03/02/20 08:41 Magnesium 1.20 mg/dL (1.7-2.3) L 02/23/20 05:36 Ferritin 1191.0 ng/mL (30.0-300.0) H 02/17/20 16:28 Total Bilirubin 0.50 mg/dL (0.1-1.2) 02/17/20 16:28 AST 65 units/L (5-40) H 02/17/20 16:28 ALT 81 units/L (7-56) H 02/17/20 16:28 Alkaline Phosphatase 101 units/L (35-129) 02/17/20 16:28 Lactate Dehydrogenase 381 units/L (91-180) H 02/17/20 16:28 Total Creatine Kinase 362 units/L (55-170) H 02/24/20 05:55 CK-MB (CK-2) 78.0 ng/mL (0.0-4.0) H 02/18/20 10:10 CK-MB (CK-2) Rel Index 1.3 (0-4) 02/18/20 10:10 Troponin T 0.573 ng/mL (0.00-0.029) H* D 02/20/20 17:20 C-Reactive Protein 18.20 mg/dL (0.00-1.30) H 02/17/20 16:28 NT-Pro-B Natriuret Pep 1980 pg/mL (0-900) H 02/17/20 16:28 Total Protein 5.4 g/dL (6.3-8.2) L 02/17/20 16:28 Albumin 2.3 g/dL (3.9-5) L 02/17/20 16:28 Albumin/Globulin Ratio 0.7 % 02/17/20 16:28 Triglycerides 164 mg/dL (2-149) H 02/18/20 10:10 Cholesterol 133 mg/dL (50-199) 02/18/20 10:10 LDL Cholesterol Direct 71 mg/dL (50-130) 02/18/20 10:10 HDL Cholesterol 38 mg/dL (40-59) L 02/18/20 10:10 Cholesterol/HDL Ratio 3.50 % 02/18/20 10:10 Procalcitonin 8.38 ng/mL (<0.15) 02/28/20 14:43 TSH 3.490 mlU/mL (0.270-4.200) 02/17/20 16:28 Urine Color Yellow (Yellow) 02/17/20 Unknown Urine Turbidity Slightly-cloudy (Clear) 02/17/20 Unknown Urine pH 5.0 (5.0-7.0) 02/17/20 Unknown Ur Specific [place] 1.010 (1.003-1.030) 02/17/20 Unknown Urine Protein 30 mg/dl mg/dL (Negative) 02/17/20 Unknown Urine Glucose (UA) Neg mg/dL (Negative) 02/17/20 Unknown Urine Ketones Neg mg/dL (Negative) 02/17/20 Unknown Urine Blood Mod (Negative) 02/17/20 Unknown Urine Nitrite Neg (Negative) 02/17/20 Unknown Urine Bilirubin Neg (Negative) 02/17/20 Unknown Urine Urobilinogen < 2.0 mg/dL (<2.0) 02/17/20 Unknown Ur Leukocyte Esterase Mod (Negative) 02/17/20 Unknown Urine WBC (Auto) 17.0 /HPF (0.0-6.0) H 02/17/20 Unknown Urine RBC (Auto) 17.0 /HPF (0.0-6.0) 02/17/20 Unknown U Epithel Cells (Auto) 4.0 /HPF (0-13.0) 02/17/20 Unknown Urine Bacteria (Auto) 1+ /HPF (Negative) 02/17/20 Unknown Urine Yeast (Budding) 2+ /HPF 02/17/20 Unknown Urine Eosinophils None seen (None Seen) 02/18/20 17:40 Urine Creatinine 35.2 mg/dL (0.1-20.0) H 02/18/20 17:40 Urine Microalbumin 5.9 mg/dL (0.1-34.0) 02/18/20 17:40 Microalb/Creat Ratio 167.6 ug/mg 02/18/20 17:40 Urine Sodium 104 mmol/L 02/18/20 17:40 Urine Chloride 81.0 mmolL (110-250) L 02/18/20 17:40 Urine Total Protein 38 mg/dL (5-11.8) H 02/18/20 17:40 Nasal Screen MRSA (PCR) Positive (Negative) 02/18/20 17:40 Random Vancomycin 15.6 ug/mL (0-40.0) 02/23/20 05:36 Coronavirus (PCR) Negative (Negative) 02/23/20 09:59 Blood Type B NEGATIVE 02/21/20 10:47 Antibody Screen Negative 02/21/20 10:47 Crossmatch See Detail 02/21/20 10:47 Microbiology: Microbiology 02/28/20 14:43 Peripheral/Venous Blood Culture - Preliminary NO GROWTH AFTER 48 HOURS 02/28/20 14:43 Peripheral/Venous Blood Culture - Preliminary NO GROWTH AFTER 48 HOURS - Diagnostic Impressions Diagnostic Impressions: Echocardiogram 02/19/20 15:05 Transthoracic Echocardiogram Indication: NSTEMI BP: 95/50 HR: 107 Conclusions *Global left ventricular systolic function is at the lower limits of normal. *The estimated ejection fraction is 45-50%. *Abnormal left ventricular diastolic filling is observed, consistent with impaired relaxation. *There is evidence of mild pulmonary hypertension. *There is no pericardial effusion. Findings Left Ventricle: The left ventricular chamber size is normal. Global left ventricular systolic function is at the lower limits of normal. The estimated ejection fraction is 45-50%. Abnormal left ventricular diastolic filling is observed, consistent with impaired relaxation. Left Atrium: The left atrial chamber size is normal. Right Ventricle: The right ventricular cavity size is normal. Right Atrium: The right atrial cavity size is normal. Aortic Valve: Mild aortic leaflet calcification is visualized. There is trace of aortic regurgitation. Mitral Valve: Mild mitral leaflet calcification is visualized. There is no evidence of mitral regurgitation. Tricuspid Valve: The tricuspid valve leaflets are normal. There is mild tricuspid regurgitation. The right ventricular systolic pressure is calculated at 40 mmHg. There is evidence of mild pulmonary hypertension. Pericardium: There is no pericardial effusion. Aorta: The aorta appears normal. Venous: The inferior vena cava appears normal. Measurements Chambers 2D Name Value Normal Range IVSd (2D) 1.09 cm (0.6 - 1.1) LVPWd (2D) 1 cm (0.6 - 1.1) LVIDd (2D) 3.55 cm (3.7 - 5.6) LVIDs (2D) 3 cm (2 - 3.8) LV FS (2D) 15.53 % - Ao root diameter (2D) 3.26 cm (2 - 3.7) Volumes/Mass Name Value Normal Range LA ESV SP 4CH (A/L) 17.3 ml - LA ESV SP 2CH (A/L) 18.3 ml - LA ESV BP (A/L) 19.14 ml - LA ESV BP (A/L) index 9.38 ml/m2 - LA ESV SP 4CH (MOD) 15.02 ml - LA ESV SP 2CH (MOD) 17.03 ml - LA ESV BP (MOD) 17.14 ml - LA ESV BP (MOD) index 8.4 ml/m2 - Diastolic/Systolic Function Name Value Normal Range MV E-wave Vmax 0.56 m/sec - MV deceleration time 197.94 msec - MV A-wave Vmax 1.36 m/sec - MV E:A ratio 0.41 ratio - Aortic Valve Name Value Normal Range AV Vmax 2.3 m/sec - AV VTI 33.77 cm - AV peak gradient 22.91 mmHg - AV mean gradient 12.27 mmHg - LVOT diameter 2.08 cm - LVOT Vmax 0.84 m/sec - LVOT VTI 14.82 cm - LVOT peak gradient 2.82 mmHg - LVOT mean gradient 2 mmHg - SV LVOT 50.44 ml - KALYAN (continuity Vmax) 1.24 cm2 - KALYAN (continuity VTI) 1.49 cm2 - AR PHT 460.84 msec - AR peak gradient 52.84 mmHg - Tricuspid Valve Name Value Normal Range TR Vmax 3.03 m/sec - TR peak gradient 37 mmHg - RAP 3 mmHg - RVSP 40 mmHg - Pulmonic Valve/Qp:Qs Name Value Normal Range PV acceleration time 106.57 msec - Yin/IV: Voiding Method Indwelling Catheter IV Catheter Type [Right Hand] INT / Saline Lock IV Catheter Type [Left Upper INT / Saline Lock arm] IV Catheter Type [Right Triple Lumen Cath Femoral] IV Catheter Type [Right INT / Saline Lock Antecubital] Active Medications - Current Medications Current Medications: Generic Name Dose Route Start Last Admin Trade Name Freq PRN Reason Stop Dose Admin Albuterol 2.5 mg 02/26/20 09:18 Proventil IH Q4HRT PRN Shortness Of Breath Albuterol/Ipratropium 1 ampul 02/26/20 14:00 03/02/20 08:26 Duoneb *Not For Prn Use* IH 1 ampul TIDRT LOS Administration Lipase/Protease/Amylase 1 each 02/21/20 12:12 Pancrecristiane Simon 10,500 Unit FEEDTUBE PRN PRN For Clogged Feeding Tube Aspirin 81 mg 02/18/20 10:00 03/02/20 09:18 Baby Aspirin PO 81 mg DAILY LOS Administration Atorvastatin Calcium 20 mg 02/18/20 22:00 03/01/20 22:27 Lipitor PO 20 mg QHS LOS Administration Calcium Carbonate/Glycine 1,250 mg 03/02/20 22:00 Calcium Carbonate FEEDTUBE BID LOS Dextrose 50 ml 02/18/20 12:55 D50w (25gm) Syringe IV Q30MIN PRN Hypoglycemia Protocol Docusate Sodium 100 mg 02/20/20 12:00 03/02/20 09:18 Colace PO 100 mg BID LOS Administration Heparin Sodium (Porcine) 5,000 unit 02/24/20 22:00 03/02/20 09:19 Heparin SUB-Q 5,000 unit Q12HR LOS Administration Hydrophilic Ointment 1 applic 02/17/20 15:12 Vaseline Lip Therapy TP Q2HR PRN Dry Lips Sodium Chloride 1,000 mls @ 125 mls/hr 03/01/20 04:15 03/02/20 09:23 Nacl 0.9% 1000 Ml IV 125 mls/hr DIRECT LOS Administration Potassium Phosphate 40 mmol/ 513.3333 mls @ 83 mls/hr 03/02/20 11:00 Sodium Chloride IV 03/02/20 17:11 ONCE ONE Insulin Human Regular 0 unit 02/18/20 13:00 03/02/20 06:59 Humulin R SUB-Q Not Given Q6HR LOS Protocol Magnesium Hydroxide 30 ml 02/18/20 02:31 Milk Of Magnesia PO Q4H PRN Constipation Multi-Ingred Cream/Lotion/Oil/Oint 1 applic 02/17/20 15:12 02/19/20 04:25 Artificial Tears Ophth Oint OU 1 applic Q4HR PRN Administration Dry Eye(s) Simple Syrup 15 ml 02/21/20 12:12 Simple Syrup FEEDTUBE PRN PRN Hypoglycemia Simple Syrup 30 ml 02/21/20 12:12 Simple Syrup FEEDTUBE PRN PRN Hypoglycemia Sodium Bicarbonate 325 mg 02/21/20 12:12 Sodium Bicarbonate FEEDTUBE PRN PRN For Clogged Feeding Tube Sodium Chloride 10 ml 02/18/20 10:00 03/02/20 09:19 Sodium Chloride Flush Syringe 10 Ml IV 10 ml BID LOS Administration Sodium Chloride 10 ml 02/18/20 02:31 Sodium Chloride Flush Syringe 10 Ml IV PRN PRN LINE FLUSH Nutrition/Malnutrition Assess - Dietary Evaluation Nutrition/Malnutrition Findings: Nutrition Notes Start: 02/18/20 10:34 Freq: Status: Active Protocol: Document 02/29/20 10:53 [email or web address] (Rec: 02/29/20 12:00 [email or web address]) Co-Sign 02/29/20 10:53 LM Nutrition Notes Initial or Follow up Reassessment Current Diagnosis CKD(stage I-IV),Diabetes, Sepsis,Hypertension, Hyperlipidemia Other Pertinent Diagnosis UTI, Dementia Current Diet Nepro 1.8 at 45ml/hr Labs/Tests Glucose 147 Cr 3.4 BUN 89 Pertinent Medications Reviewed Height 6 ft Weight 87.2 kg [place] Body Weight (kg) 80.90 BMI 26.0 Subjective/Other Information Follow-up on TF and Bello administration. Pt is at goal rate of 45 mL/hr; flush 200 mL q4hr. Nurse reports that pt is tolerating TF well. Nurse has not seen Bello and thus has not administered the supplement. Pt was extubated. Percent of energy/protein needs met: 98%/100% Burn Absent Trauma Absent GI Symptoms None Skin Integrity/Comment Multiple pressure ulcers Current % PO Negligible Minimum of two criteria No physical signs of malnutrition #2 Nutrition Diagnosis Increased nutrient needs ( specify in comment below) Diagnosis Progress(for reassessment Continues documentation) #1 Nutrition Diagnosis Inadequate oral intake Diagnosis Progress(for reassessment Continues documentation) Is patient on ventilator? No Is Patient Ambulatory and/or Out of Bed No REE-([place]-St. Jeor-confined to bed) 1979.156 Calculation Used for Recommendations [facility] Additional Notes PRO needs: 69 - 130 g (0.8 - 1 .5 g/kg) Fluid needs: 1 mL/kcal Nutrition Intervention Change Diet Order: Continue TF Nutrition Support: Nepro at 45ml/hr Flush at 200ml q4hr Kcal 1,944 Protein (gm) 87 Fluid (mL) 785 % RDI: 100 Add Supplement/Snack (indicate name/kcal Bello BID /protein ) Provides kCal: 190 Provides Protein (gm) 5 Goal #1 TF tolerance Goal #2 Meet 80% of energy and protein needs via TF. Goal #3 Pt will receive Bello BID Anticipated Discharge Needs: Unable to determine at this time. Follow-Up By: 03/06/20 Additional Comments Follow up for continued tolerance and Bello administration.
[2020-03-02] MEDS ORDERED: POTASSIUM PHOSPHATE 40 MMOL in SODIUM CHLORIDE 0.9% 500 ML 500 ML IV ONE (11:00)
--- NOTE | 2020-03-02 11:11 | Progress Note ---
Assessment and Plan Assessment: Acute hypoxic respiratory failure Septic Shock 2/2 PNA Bilateral PNA Acute Kidney Injury 2/2 ischemic ATN from septic shock, Rhabdo, on underlying CKD, r/o obstruction Elevated D-Dimers Plan: - Cr and BUN are better this AM - not canddiate for HD due to poor prognosis - Epogen 10,000 units today - Review of labs in 2015 in [facility] did show SCr level between 1.6-1.8 - Renal ultrasound-chronic medical renal disease. No hydronephrosis - Urine eosinophils negative, calculated protein to cr ratio 1 g, monitor - Had recent COVID infection, last 2 tests were negative - Yin Catheter: Yes - Renally dose medications - Avoid nephrotoxins - Continue to monitor Subjective Date of service: 03/02/20 Principal diagnosis: Septic Shock Interval history: patient is currently being transition to hospice care Objective - Vital Signs Vital signs: Vital Signs - 12hr 03/01/20 03/02/20 03/02/20 23:45 04:00 04:30 Temperature 98.0 F 98.0 F Pulse Rate 103 H 103 H 100 H Pulse Rate [ Anterior Bilateral Throughout] Respiratory 20 18 Rate Respiratory Rate [Anterior Bilateral Throughout] Blood Pressure 81/49 86/49 O2 Sat by Pulse 94 89 Oximetry 03/02/20 03/02/20 08:07 08:26 Temperature 98.2 F Pulse Rate 102 H Pulse Rate [ 103 H Anterior Bilateral Throughout] Respiratory 18 Rate Respiratory 18 Rate [Anterior Bilateral Throughout] Blood Pressure 92/52 O2 Sat by Pulse 99 Oximetry - General Appearance General appearance: well-developed EENT: ATNC, PERRL Neck: no JVD Respiratory: Present: Decreased Breath Sounds Cardiology: regular Gastrointestinal: normoactive bowel sounds Integumentary: no rash Neurologic: disoriented Musculoskeletal: deferred Psychiatric: mood/affect appropriate - Lab 03/02/20 08:41 03/02/20 08:41 Most recent lab results ABG pH 7.355 pH Units (7.350-7.450) 02/19/20 05:08 ABG pCO2 27.3 mm Hg 02/19/20 05:08 ABG pO2 168.2 mm Hg (80.0-90.0) H 02/19/20 05:08 ABG HCO3 14.9 mmol/L (20.0-26.0) L 02/19/20 05:08 ABG O2 Saturation 99.0 % (95.0-99.0) 02/19/20 05:08 Calcium 5.8 mg/dL (8.4-10.2) L* D 03/02/20 08:41 Phosphorus 1.20 mg/dL (2.5-4.5) L 03/02/20 08:41 Magnesium 1.20 mg/dL (1.7-2.3) L 02/23/20 05:36 Urine Creatinine 35.2 mg/dL (0.1-20.0) H 02/18/20 17:40 Urine Sodium 104 mmol/L 02/18/20 17:40 Urine Total Protein 38 mg/dL (5-11.8) H 02/18/20 17:40 Medications & Allergies - Medications Allergies/Adverse Reactions: Allergies No Known Allergies Allergy (Unverified 05/01/15 23:41) Home Medications: Home Medications Medication Instructions Recorded Confirmed Last Taken Type Acetaminophen [Acetaminophen TAB] 650 mg PO Q8H PRN 05/02/15 02/18/20 Unknown History Albuterol Sulfate [Albuterol 0.63% 0.63 mg IH Q6H PRN 05/02/15 02/18/20 Unknown History NEBS] Aspirin [Aspirin BABY CHEW TAB] 81 mg PO DAILY 05/02/15 02/18/20 05/01/15 History AtorvaSTATin [Lipitor] 20 mg PO QHS 05/02/15 02/18/20 05/01/15 History Docusate Sodium [Colace CAP] 100 mg PO BID 05/02/15 02/18/20 05/02/15 History Insulin Lispro [HumaLOG VIAL] See Protocol SUB-Q ACHS 05/02/15 02/18/20 05/01/15 History amLODIPine 5 mg PO DAILY 05/02/15 02/18/20 05/01/15 History Active Medications: Generic Name Dose Route Start Last Admin Trade Name Freq PRN Reason Stop Dose Admin Albuterol 2.5 mg 02/26/20 09:18 Proventil IH Q4HRT PRN Shortness Of Breath Albuterol/Ipratropium 1 ampul 02/26/20 14:00 03/02/20 08:26 Duoneb *Not For Prn Use* IH 1 ampul TIDRT LOS Administration Lipase/Protease/Amylase 1 each 02/21/20 12:12 Pancrecristiane Simon 10,500 Unit FEEDTUBE PRN PRN For Clogged Feeding Tube Aspirin 81 mg 02/18/20 10:00 03/02/20 09:18 Baby Aspirin PO 81 mg DAILY LOS Administration Atorvastatin Calcium 20 mg 02/18/20 22:00 03/01/20 22:27 Lipitor PO 20 mg QHS LOS Administration Calcitriol 1 mcg 03/02/20 12:00 Rocaltrol PO QDAY [facility] Calcium Carbonate/Glycine 1,250 mg 03/02/20 22:00 Calcium Carbonate FEEDTUBE BID LOS Dextrose 50 ml 02/18/20 12:55 D50w (25gm) Syringe IV Q30MIN PRN Hypoglycemia Protocol Docusate Sodium 100 mg 02/20/20 12:00 03/02/20 09:18 Colace PO 100 mg BID LOS Administration Epoetin Vadim 10,000 unit 03/02/20 12:00 Procrit IV QWEEK [facility] Heparin Sodium (Porcine) 5,000 unit 02/24/20 22:00 03/02/20 09:19 Heparin SUB-Q 5,000 unit Q12HR LOS Administration Hydrophilic Ointment 1 applic 02/17/20 15:12 Vaseline Lip Therapy TP Q2HR PRN Dry Lips Sodium Chloride 1,000 mls @ 125 mls/hr 03/01/20 04:15 03/02/20 09:23 Nacl 0.9% 1000 Ml IV 125 mls/hr DIRECT LOS Administration Potassium Phosphate 40 mmol/ 513.3333 mls @ 83 mls/hr 03/02/20 11:00 Sodium Chloride IV 03/02/20 17:11 ONCE ONE Insulin Human Regular 0 unit 02/18/20 13:00 03/02/20 06:59 Humulin R SUB-Q Not Given Q6HR [facility] Protocol Magnesium Hydroxide 30 ml 02/18/20 02:31 Milk Of Magnesia PO Q4H PRN Constipation Multi-Ingred Cream/Lotion/Oil/Oint 1 applic 02/17/20 15:12 02/19/20 04:25 Artificial Tears Ophth Oint OU 1 applic Q4HR PRN Administration Dry Eye(s) Simple Syrup 15 ml 02/21/20 12:12 Simple Syrup FEEDTUBE PRN PRN Hypoglycemia Simple Syrup 30 ml 02/21/20 12:12 Simple Syrup FEEDTUBE PRN PRN Hypoglycemia Sodium Bicarbonate 325 mg 02/21/20 12:12 Sodium Bicarbonate FEEDTUBE PRN PRN For Clogged Feeding Tube Sodium Chloride 10 ml 02/18/20 10:00 03/02/20 09:19 Sodium Chloride Flush Syringe 10 Ml IV 10 ml BID LOS Administration Sodium Chloride 10 ml 02/18/20 02:31 Sodium Chloride Flush Syringe 10 Ml IV PRN PRN LINE FLUSH
[2020-03-02] MEDS ORDERED: EPOETIN ALFA 2,000 UNIT/1 ML VIAL IV SCH (12:00)
[2020-03-02] MEDS ORDERED: EPOETIN ALFA 10,000 UNIT/1 ML INJ IV SCH (12:00)
[2020-03-02] MEDS ORDERED: SODIUM CHLORIDE 0.9% 500 ML 500 ML IV ONE (13:02)
--- NOTE | 2020-03-02 13:42 | Progress Note ---
Assessment and Plan Cultures: Coronavirus PCR 02/05/2020: Negative Coronavirus PCR 02/10/2020: Negative Coronavirus PCR 02/18/2020: Negative MRSA nasal PCR 02/05/2020: Positive 02/04/2020 blood culture: No growth 02/04/2020 tracheal aspirate: Proteus, Hemophilus, MRSA 02/14/2020 blood culture: No growth 02/17/2020 tracheal aspirate: normal resp demetrius 02/17/2020 blood culture: No growth today 02/28/2020 blood culture: Pending A/P: 74 y/o male with history of CVA with left hemiparesis, diabetes mellitus, hypertension, dyslipidemia, dementia and peripheral vascular disease, from [facility], recent COVID, admitted on due to AMS and low O2 sats: #Severe sepsis with septic shock: Resolved #Bilateral pneumonia: likely bacterial pneumonia. COVID markers elevated Ferritin 1191. Ddmer >10,000. CRP 18. LDH 381. Recent sputum cx with PMDR Proteus, MRSA. H flu. MRSA PCR positive. Elevated procal however possible due to renal failure #Acute resp failure: Now extubated. #Elevated LFTs: from sepsis #AMMY on CKD: renally adjusted meds, required HD during previous admission Recs: -Has recurrent fevers and elevated procalcitonin (possibly secondary to renal failure) -Started empiric meropenem for now, however would stop if hospice elected. . -Agree with full anticoagulation High risk mortality / guarded prognosis consider hospice Edel Saenz MD [facility] M: [phone] O: [phone] F: [phone] Subjective Date of service: 03/02/20 Principal diagnosis: Septic Shock Interval history: Febrile overnight. Ethics committee met with patient's friend, elected for DNR. Hospice consulted Objective - Exam Narrative Exam: Constitutional: Extubated on nasal cannula Head, Ears, Nose: Normocephalic, atraumatic. External ears, nose normal Oral: Limited Eyes: Conjunctivae/corneas clear. No icterus. No ptosis. Neck: limited Cardiovascular: tachy Respiratory: limited GI: limited Musculoskeletal: limited Skin: limited Hem/Lymphatic: limited Psych: limited Neurological: limited - Constitutional Vitals: Vital Signs Temp Pulse Resp BP Pulse Ox 98.2 F 103 H 20 92/52 99 03/02/20 08:07 03/02/20 08:26 03/02/20 10:00 03/02/20 08:07 03/02/20 08:07 Temperature -Last 24 Hours Temperature 98.2 F Temperature 98.0 F Temperature 98.0 F Temperature 100.0 F Temperature 101.3 F - Labs CBC & Chem 7: 03/02/20 08:41 03/02/20 08:41 Labs: Abnormal lab results 03/01/20 03/01/20 03/02/20 Range/Units 17:36 21:05 07:00 RBC (3.65-5.03) M/mm3 Hgb (11.8-15.2) gm/dl Hct (35.5-45.6) % RDW (13.2-15.2) % Plt Count (140-440) K/mm3 Maverick % (Auto) (0.0-7.3) % Maverick # (0.0-0.8) K/mm3 Sodium (137-145) mmol/L Potassium (3.6-5.0) mmol/L Chloride (98-107) mmol/L Carbon Dioxide (22-30) mmol/L BUN (9-20) mg/dL Creatinine (0.8-1.3) mg/dL Glucose (75-100) mg/dL POC Glucose 139 H 133 H 147 H (70-105) Calcium (8.4-10.2) mg/dL Phosphorus (2.5-4.5) mg/dL 03/02/20 03/02/20 03/02/20 Range/Units 08:24 08:41 08:41 RBC 1.78 L (3.65-5.03) M/mm3 Hgb 5.4 L* (11.8-15.2) gm/dl Hct 16.0 L* D (35.5-45.6) % RDW 16.5 H (13.2-15.2) % Plt Count 130 L (140-440) K/mm3 Maverick % (Auto) 11.8 H (0.0-7.3) % Maverick # 1.0 H (0.0-0.8) K/mm3 Sodium 146 H (137-145) mmol/L Potassium 3.0 L D (3.6-5.0) mmol/L Chloride 118.9 H (98-107) mmol/L Carbon Dioxide 17 L D (22-30) mmol/L BUN 80 H (9-20) mg/dL Creatinine 3.4 H (0.8-1.3) mg/dL Glucose 103 H (75-100) mg/dL POC Glucose 141 H (70-105) Calcium 5.8 L* D (8.4-10.2) mg/dL Phosphorus 1.20 L (2.5-4.5) mg/dL 03/02/20 Range/Units 11:43 RBC (3.65-5.03) M/mm3 Hgb (11.8-15.2) gm/dl Hct (35.5-45.6) % RDW (13.2-15.2) % Plt Count (140-440) K/mm3 Maverick % (Auto) (0.0-7.3) % Maverick # (0.0-0.8) K/mm3 Sodium (137-145) mmol/L Potassium (3.6-5.0) mmol/L Chloride (98-107) mmol/L Carbon Dioxide (22-30) mmol/L BUN (9-20) mg/dL Creatinine (0.8-1.3) mg/dL Glucose (75-100) mg/dL POC Glucose 141 H (70-105) Calcium (8.4-10.2) mg/dL Phosphorus (2.5-4.5) mg/dL
--- NOTE | 2020-03-02 13:43 | Progress Note ---
Assessment and Plan 74 y/o male with known dementia, mumbles very few words at baseline if any, blank stares, admitted with altered mental status, respiratory failure, worsening renal failure and sepsis with shock no new recs for today, please see below. Will see as needed over the weekend. 1. Pulm-extubated on nasal cannula. Ordered NT suction qshift. Will continue 2. CV- stable now 3. If going to [facility]ACH, or back to SNF no objection pulmonary duong for discharge. Subjective Date of service: 03/02/20 Principal diagnosis: Septic Shock Interval history: Spoke with ethics on yesterday. Patient is now an AND. Objective Vital Signs - 12hr 03/02/20 03/02/20 03/02/20 04:00 04:30 08:07 Temperature 98.0 F 98.2 F Pulse Rate 103 H 100 H 102 H Pulse Rate [ Anterior Bilateral Throughout] Respiratory 18 18 Rate Respiratory Rate [Anterior Bilateral Throughout] Blood Pressure 86/49 92/52 O2 Sat by Pulse 89 99 Oximetry 03/02/20 03/02/20 08:26 10:00 Temperature Pulse Rate Pulse Rate [ 103 H Anterior Bilateral Throughout] Respiratory 20 Rate Respiratory 18 Rate [Anterior Bilateral Throughout] Blood Pressure O2 Sat by Pulse Oximetry Constitutional: alert ENT: other (orally intubated critically ill on vent) Neck: supple Effort: mildly labored Ascultation: Bilateral: clear, diminished breath sounds, rhonchi (Bilateral upper airway noises) Percussion: Bilateral: not dull Cardiovascular: other (sinus tachycardia) Neurologic: unable to assess CBC and BMP: 03/02/20 08:41 03/02/20 08:41 ABG, PT/INR, D-dimer: ABG ABG pH 7.355 pH Units (7.350-7.450) 02/19/20 05:08 ABG pCO2 27.3 mm Hg 02/19/20 05:08 ABG pO2 168.2 mm Hg (80.0-90.0) H 02/19/20 05:08 ABG O2 Saturation 99.0 % (95.0-99.0) 02/19/20 05:08 PT/INR, D-dimer PT 18.6 Sec. (12.2-14.9) H 02/19/20 03:20 INR 1.53 (0.87-1.13) H 02/19/20 03:20 D-Dimer 1327.30 ng/mlDDU (0-234) H 02/20/20 17:20 Abnormal lab findings: Abnormal Labs 02/17/20 02/17/20 02/17/20 16:28 16:28 16:28 WBC 23.5 H RBC 3.07 L Hgb 9.1 L Hct 28.4 L RDW 16.8 H Plt Count Lymph % (Auto) Price % (Auto) Eos % (Auto) Price # Seg Neutrophils % Seg Neuts % (Manual) 84.0 H Lymphocytes % (Manual) 8.0 L Monocytes % (Manual) 8.0 H Seg Neutrophils # Seg Neutrophils # Man 19.7 H Monocytes # (Manual) 1.9 H PT 15.3 H INR 1.19 H D-Dimer Heparin Anti-Xa Level ABG pH ABG pO2 ABG HCO3 ABG O2 Saturation ABG Base Excess ABG Hemoglobin Sodium 136 L Potassium 5.4 H Chloride Carbon Dioxide 15 L BUN 91 H Creatinine 3.7 H D Glucose 120 H POC Glucose Lactic Acid Calcium 7.9 L Phosphorus Magnesium Ferritin AST 65 H ALT 81 H Lactate Dehydrogenase Total Creatine Kinase CK-MB (CK-2) Troponin T C-Reactive Protein NT-Pro-B Natriuret Pep Total Protein 5.4 L Albumin 2.3 L Triglycerides HDL Cholesterol Urine WBC (Auto) Urine Creatinine Urine Chloride Urine Total Protein Crossmatch 02/17/20 02/17/20 02/17/20 16:28 16:28 16:28 WBC RBC Hgb Hct RDW Plt Count Lymph % (Auto) Price % (Auto) Eos % (Auto) Price # Seg Neutrophils % Seg Neuts % (Manual) Lymphocytes % (Manual) Monocytes % (Manual) Seg Neutrophils # Seg Neutrophils # Man Monocytes # (Manual) PT INR D-Dimer > 50358 H Heparin Anti-Xa Level ABG pH ABG pO2 ABG HCO3 ABG O2 Saturation ABG Base Excess ABG Hemoglobin Sodium Potassium Chloride Carbon Dioxide BUN Creatinine Glucose POC Glucose Lactic Acid 2.70 H* Calcium Phosphorus Magnesium Ferritin AST ALT Lactate Dehydrogenase Total Creatine Kinase CK-MB (CK-2) Troponin T 0.748 H* C-Reactive Protein NT-Pro-B Natriuret Pep 1980 H Total Protein Albumin Triglycerides HDL Cholesterol Urine WBC (Auto) Urine Creatinine Urine Chloride Urine Total Protein Crossmatch 02/17/20 02/17/20 02/17/20 16:28 16:28 18:35 WBC RBC Hgb Hct RDW Plt Count Lymph % (Auto) Price % (Auto) Eos % (Auto) Price # Seg Neutrophils % Seg Neuts % (Manual) Lymphocytes % (Manual) Monocytes % (Manual) Seg Neutrophils # Seg Neutrophils # Man Monocytes # (Manual) PT INR D-Dimer Heparin Anti-Xa Level ABG pH 7.303 L ABG pO2 327.3 H ABG HCO3 12.5 L ABG O2 Saturation 99.5 H ABG Base Excess -12.3 L ABG Hemoglobin 11.2 L Sodium Potassium Chloride Carbon Dioxide BUN Creatinine Glucose POC Glucose Lactic Acid Calcium Phosphorus Magnesium Ferritin 1191.0 H AST ALT Lactate Dehydrogenase 381 H Total Creatine Kinase CK-MB (CK-2) Troponin T C-Reactive Protein 18.20 H NT-Pro-B Natriuret Pep Total Protein Albumin Triglycerides HDL Cholesterol Urine WBC (Auto) Urine Creatinine Urine Chloride Urine Total Protein Crossmatch 02/17/20 02/18/20 02/18/20 Unknown 05:20 10:10 WBC RBC Hgb Hct RDW Plt Count Lymph % (Auto) Price % (Auto) Eos % (Auto) Price # Seg Neutrophils % Seg Neuts % (Manual) Lymphocytes % (Manual) Monocytes % (Manual) Seg Neutrophils # Seg Neutrophils # Man Monocytes # (Manual) PT INR D-Dimer Heparin Anti-Xa Level ABG pH 7.217 L ABG pO2 165.7 H ABG HCO3 10.5 L ABG O2 Saturation ABG Base Excess -15.7 L ABG Hemoglobin 10.3 L Sodium Potassium Chloride Carbon Dioxide BUN Creatinine Glucose POC Glucose Lactic Acid Calcium Phosphorus Magnesium Ferritin AST ALT Lactate Dehydrogenase Total Creatine Kinase 5660 H CK-MB (CK-2) 78.0 H Troponin T 1.030 H* D C-Reactive Protein NT-Pro-B Natriuret Pep Total Protein Albumin Triglycerides 164 H HDL Cholesterol 38 L Urine WBC (Auto) 17.0 H Urine Creatinine Urine Chloride Urine Total Protein Crossmatch 02/18/20 02/18/20 02/18/20 12:14 17:32 17:40 WBC RBC Hgb Hct RDW Plt Count Lymph % (Auto) Price % (Auto) Eos % (Auto) Price # Seg Neutrophils % Seg Neuts % (Manual) Lymphocytes % (Manual) Monocytes % (Manual) Seg Neutrophils # Seg Neutrophils # Man Monocytes # (Manual) PT INR D-Dimer Heparin Anti-Xa Level ABG pH ABG pO2 ABG HCO3 ABG O2 Saturation ABG Base Excess ABG Hemoglobin Sodium Potassium Chloride Carbon Dioxide BUN Creatinine Glucose POC Glucose 193 H 191 H Lactic Acid Calcium Phosphorus Magnesium Ferritin AST ALT Lactate Dehydrogenase Total Creatine Kinase CK-MB (CK-2) Troponin T C-Reactive Protein NT-Pro-B Natriuret Pep Total Protein Albumin Triglycerides HDL Cholesterol Urine WBC (Auto) Urine Creatinine 35.2 H Urine Chloride 81.0 L Urine Total Protein 38 H Crossmatch 02/18/20 02/19/20 02/19/20 17:40 00:04 01:50 WBC RBC Hgb Hct RDW Plt Count Lymph % (Auto) Price % (Auto) Eos % (Auto) Price # Seg Neutrophils % Seg Neuts % (Manual) Lymphocytes % (Manual) Monocytes % (Manual) Seg Neutrophils # Seg Neutrophils # Man Monocytes # (Manual) PT INR D-Dimer Heparin Anti-Xa Level 0.18 L ABG pH ABG pO2 ABG HCO3 ABG O2 Saturation ABG Base Excess ABG Hemoglobin Sodium Potassium Chloride 111.4 H Carbon Dioxide 11 L BUN 77 H Creatinine 2.8 H Glucose 168 H POC Glucose 145 H Lactic Acid Calcium 7.2 L Phosphorus Magnesium Ferritin AST ALT Lactate Dehydrogenase Total Creatine Kinase CK-MB (CK-2) Troponin T C-Reactive Protein NT-Pro-B Natriuret Pep Total Protein Albumin Triglycerides HDL Cholesterol Urine WBC (Auto) Urine Creatinine Urine Chloride Urine Total Protein Crossmatch 02/19/20 02/19/20 02/19/20 03:20 04:00 05:08 WBC 17.6 H RBC 2.76 L Hgb 8.1 L Hct 25.0 L RDW 16.6 H Plt Count Lymph % (Auto) 10.5 L Price % (Auto) Eos % (Auto) Price # 1.2 H Seg Neutrophils % 82.1 H Seg Neuts % (Manual) Lymphocytes % (Manual) Monocytes % (Manual) Seg Neutrophils # 14.5 H Seg Neutrophils # Man Monocytes # (Manual) PT 18.6 H INR 1.53 H D-Dimer Heparin Anti-Xa Level ABG pH ABG pO2 168.2 H ABG HCO3 14.9 L ABG O2 Saturation ABG Base Excess -9.5 L ABG Hemoglobin 8.3 L Sodium Potassium Chloride Carbon Dioxide BUN Creatinine Glucose POC Glucose Lactic Acid Calcium Phosphorus Magnesium Ferritin AST ALT Lactate Dehydrogenase Total Creatine Kinase CK-MB (CK-2) Troponin T C-Reactive Protein NT-Pro-B Natriuret Pep Total Protein Albumin Triglycerides HDL Cholesterol Urine WBC (Auto) Urine Creatinine Urine Chloride Urine Total Protein Crossmatch 02/19/20 02/19/20 02/19/20 05:38 05:50 09:10 WBC RBC Hgb Hct RDW Plt Count Lymph % (Auto) Price % (Auto) Eos % (Auto) Price # Seg Neutrophils % Seg Neuts % (Manual) Lymphocytes % (Manual) Monocytes % (Manual) Seg Neutrophils # Seg Neutrophils # Man Monocytes # (Manual) PT INR D-Dimer Heparin Anti-Xa Level ABG pH ABG pO2 ABG HCO3 ABG O2 Saturation ABG Base Excess ABG Hemoglobin Sodium Potassium Chloride 111.6 H 111.9 H Carbon Dioxide 14 L 15 L BUN 69 H 68 H Creatinine 2.6 H 2.5 H Glucose 151 H 154 H POC Glucose 143 H Lactic Acid Calcium 7.4 L 7.2 L Phosphorus Magnesium Ferritin AST ALT Lactate Dehydrogenase Total Creatine Kinase 3552 H CK-MB (CK-2) Troponin T C-Reactive Protein NT-Pro-B Natriuret Pep Total Protein Albumin Triglycerides HDL Cholesterol Urine WBC (Auto) Urine Creatinine Urine Chloride Urine Total Protein Crossmatch 02/19/20 02/19/20 02/19/20 11:41 12:00 17:46 WBC RBC Hgb Hct RDW Plt Count Lymph % (Auto) Price % (Auto) Eos % (Auto) Price # Seg Neutrophils % Seg Neuts % (Manual) Lymphocytes % (Manual) Monocytes % (Manual) Seg Neutrophils # Seg Neutrophils # Man Monocytes # (Manual) PT INR D-Dimer Heparin Anti-Xa Level 0.11 L ABG pH ABG pO2 ABG HCO3 ABG O2 Saturation ABG Base Excess ABG Hemoglobin Sodium Potassium Chloride Carbon Dioxide BUN Creatinine Glucose POC Glucose 160 H 133 H Lactic Acid Calcium Phosphorus Magnesium Ferritin AST ALT Lactate Dehydrogenase Total Creatine Kinase CK-MB (CK-2) Troponin T C-Reactive Protein NT-Pro-B Natriuret Pep Total Protein Albumin Triglycerides HDL Cholesterol Urine WBC (Auto) Urine Creatinine Urine Chloride Urine Total Protein Crossmatch 02/19/20 02/19/20 02/20/20 20:02 23:50 04:44 WBC RBC 2.64 L Hgb 7.9 L Hct 24.1 L RDW 16.3 H Plt Count 137 L Lymph % (Auto) Price % (Auto) Eos % (Auto) Price # Seg Neutrophils % Seg Neuts % (Manual) Lymphocytes % (Manual) Monocytes % (Manual) Seg Neutrophils # Seg Neutrophils # Man Monocytes # (Manual) PT INR D-Dimer Heparin Anti-Xa Level 0.12 L ABG pH ABG pO2 ABG HCO3 ABG O2 Saturation ABG Base Excess ABG Hemoglobin Sodium Potassium Chloride Carbon Dioxide BUN Creatinine Glucose POC Glucose 128 H Lactic Acid Calcium Phosphorus Magnesium Ferritin AST ALT Lactate Dehydrogenase Total Creatine Kinase CK-MB (CK-2) Troponin T C-Reactive Protein NT-Pro-B Natriuret Pep Total Protein Albumin Triglycerides HDL Cholesterol Urine WBC (Auto) Urine Creatinine Urine Chloride Urine Total Protein Crossmatch 02/20/20 02/20/20 02/20/20 04:44 04:44 10:00 WBC RBC Hgb Hct RDW Plt Count Lymph % (Auto) Price % (Auto) Eos % (Auto) Price # Seg Neutrophils % Seg Neuts % (Manual) Lymphocytes % (Manual) Monocytes % (Manual) Seg Neutrophils # Seg Neutrophils # Man Monocytes # (Manual) PT INR D-Dimer Heparin Anti-Xa Level 0.15 L < 0.10 L ABG pH ABG pO2 ABG HCO3 ABG O2 Saturation ABG Base Excess ABG Hemoglobin Sodium Potassium Chloride 110.4 H Carbon Dioxide 19 L BUN 61 H Creatinine 2.4 H Glucose POC Glucose Lactic Acid Calcium 7.3 L Phosphorus Magnesium Ferritin AST ALT Lactate Dehydrogenase Total Creatine Kinase 2238 H CK-MB (CK-2) Troponin T C-Reactive Protein NT-Pro-B Natriuret Pep Total Protein Albumin Triglycerides HDL Cholesterol Urine WBC (Auto) Urine Creatinine Urine Chloride Urine Total Protein Crossmatch 02/20/20 02/20/20 02/20/20 12:58 17:20 17:20 WBC RBC Hgb Hct RDW Plt Count Lymph % (Auto) Price % (Auto) Eos % (Auto) Price # Seg Neutrophils % Seg Neuts % (Manual) Lymphocytes % (Manual) Monocytes % (Manual) Seg Neutrophils # Seg Neutrophils # Man Monocytes # (Manual) PT INR D-Dimer 1327.30 H Heparin Anti-Xa Level 0.17 L ABG pH ABG pO2 ABG HCO3 ABG O2 Saturation ABG Base Excess ABG Hemoglobin Sodium Potassium Chloride Carbon Dioxide BUN Creatinine Glucose POC Glucose 123 H Lactic Acid Calcium Phosphorus Magnesium Ferritin AST ALT Lactate Dehydrogenase Total Creatine Kinase CK-MB (CK-2) Troponin T C-Reactive Protein NT-Pro-B Natriuret Pep Total Protein Albumin Triglycerides HDL Cholesterol Urine WBC (Auto) Urine Creatinine Urine Chloride Urine Total Protein Crossmatch 02/20/20 02/20/20 02/20/20 17:20 18:11 23:52 WBC RBC Hgb Hct RDW Plt Count Lymph % (Auto) Price % (Auto) Eos % (Auto) Price # Seg Neutrophils % Seg Neuts % (Manual) Lymphocytes % (Manual) Monocytes % (Manual) Seg Neutrophils # Seg Neutrophils # Man Monocytes # (Manual) PT INR D-Dimer Heparin Anti-Xa Level ABG pH ABG pO2 ABG HCO3 ABG O2 Saturation ABG Base Excess ABG Hemoglobin Sodium Potassium Chloride Carbon Dioxide BUN Creatinine Glucose POC Glucose 156 H 153 H Lactic Acid Calcium Phosphorus Magnesium Ferritin AST ALT Lactate Dehydrogenase Total Creatine Kinase CK-MB (CK-2) Troponin T 0.573 H* D C-Reactive Protein NT-Pro-B Natriuret Pep Total Protein Albumin Triglycerides HDL Cholesterol Urine WBC (Auto) Urine Creatinine Urine Chloride Urine Total Protein Crossmatch 02/21/20 02/21/20 02/21/20 04:39 04:39 05:12 WBC RBC 2.35 L Hgb 6.9 L Hct 21.1 L RDW 16.2 H Plt Count 126 L Lymph % (Auto) Price % (Auto) Eos % (Auto) Price # Seg Neutrophils % Seg Neuts % (Manual) Lymphocytes % (Manual) Monocytes % (Manual) Seg Neutrophils # Seg Neutrophils # Man Monocytes # (Manual) PT INR D-Dimer Heparin Anti-Xa Level ABG pH ABG pO2 ABG HCO3 ABG O2 Saturation ABG Base Excess ABG Hemoglobin Sodium Potassium Chloride Carbon Dioxide BUN 54 H Creatinine 2.2 H Glucose 120 H POC Glucose 139 H Lactic Acid Calcium 6.8 L Phosphorus Magnesium Ferritin AST ALT Lactate Dehydrogenase Total Creatine Kinase 1488 H CK-MB (CK-2) Troponin T C-Reactive Protein NT-Pro-B Natriuret Pep Total Protein Albumin Triglycerides HDL Cholesterol Urine WBC (Auto) Urine Creatinine Urine Chloride Urine Total Protein Crossmatch 02/21/20 02/21/20 02/21/20 10:47 13:24 15:41 WBC RBC Hgb Hct RDW Plt Count Lymph % (Auto) Price % (Auto) Eos % (Auto) Price # Seg Neutrophils % Seg Neuts % (Manual) Lymphocytes % (Manual) Monocytes % (Manual) Seg Neutrophils # Seg Neutrophils # Man Monocytes # (Manual) PT INR D-Dimer Heparin Anti-Xa Level < 0.10 L ABG pH ABG pO2 ABG HCO3 ABG O2 Saturation ABG Base Excess ABG Hemoglobin Sodium Potassium Chloride Carbon Dioxide BUN Creatinine Glucose POC Glucose 107 H Lactic Acid Calcium Phosphorus Magnesium Ferritin AST ALT Lactate Dehydrogenase Total Creatine Kinase CK-MB (CK-2) Troponin T C-Reactive Protein NT-Pro-B Natriuret Pep Total Protein Albumin Triglycerides HDL Cholesterol Urine WBC (Auto) Urine Creatinine Urine Chloride Urine Total Protein Crossmatch See Detail 02/22/20 02/22/20 02/22/20 05:13 05:13 12:24 WBC RBC 3.18 L Hgb 9.5 L Hct 27.6 L D RDW 15.9 H Plt Count 114 L Lymph % (Auto) Price % (Auto) Eos % (Auto) Price # Seg Neutrophils % Seg Neuts % (Manual) Lymphocytes % (Manual) Monocytes % (Manual) Seg Neutrophils # Seg Neutrophils # Man Monocytes # (Manual) PT INR D-Dimer Heparin Anti-Xa Level ABG pH ABG pO2 ABG HCO3 ABG O2 Saturation ABG Base Excess ABG Hemoglobin Sodium Potassium Chloride Carbon Dioxide BUN 52 H Creatinine 2.3 H Glucose 103 H POC Glucose 122 H Lactic Acid Calcium 6.7 L Phosphorus Magnesium Ferritin AST ALT Lactate Dehydrogenase Total Creatine Kinase 865 H CK-MB (CK-2) Troponin T C-Reactive Protein NT-Pro-B Natriuret Pep Total Protein Albumin Triglycerides HDL Cholesterol Urine WBC (Auto) Urine Creatinine Urine Chloride Urine Total Protein Crossmatch 02/22/20 02/23/20 02/23/20 17:17 05:27 05:36 WBC RBC 3.15 L Hgb 9.4 L Hct 27.6 L RDW 15.9 H Plt Count 97 L Lymph % (Auto) Price % (Auto) Eos % (Auto) Price # Seg Neutrophils % Seg Neuts % (Manual) Lymphocytes % (Manual) Monocytes % (Manual) Seg Neutrophils # Seg Neutrophils # Man Monocytes # (Manual) PT INR D-Dimer Heparin Anti-Xa Level ABG pH ABG pO2 ABG HCO3 ABG O2 Saturation ABG Base Excess ABG Hemoglobin Sodium Potassium Chloride Carbon Dioxide BUN Creatinine Glucose POC Glucose 165 H 120 H Lactic Acid Calcium Phosphorus Magnesium Ferritin AST ALT Lactate Dehydrogenase Total Creatine Kinase CK-MB (CK-2) Troponin T C-Reactive Protein NT-Pro-B Natriuret Pep Total Protein Albumin Triglycerides HDL Cholesterol Urine WBC (Auto) Urine Creatinine Urine Chloride Urine Total Protein Crossmatch 02/23/20 02/23/20 02/23/20 05:36 05:36 11:57 WBC RBC Hgb Hct RDW Plt Count Lymph % (Auto) Price % (Auto) Eos % (Auto) Price # Seg Neutrophils % Seg Neuts % (Manual) Lymphocytes % (Manual) Monocytes % (Manual) Seg Neutrophils # Seg Neutrophils # Man Monocytes # (Manual) PT INR D-Dimer Heparin Anti-Xa Level ABG pH ABG pO2 ABG HCO3 ABG O2 Saturation ABG Base Excess ABG Hemoglobin Sodium Potassium 3.0 L D Chloride Carbon Dioxide BUN 53 H Creatinine 2.3 H Glucose 115 H POC Glucose 162 H Lactic Acid Calcium 7.0 L Phosphorus Magnesium 1.20 L Ferritin AST ALT Lactate Dehydrogenase Total Creatine Kinase 476 H CK-MB (CK-2) Troponin T C-Reactive Protein NT-Pro-B Natriuret Pep Total Protein Albumin Triglycerides HDL Cholesterol Urine WBC (Auto) Urine Creatinine Urine Chloride Urine Total Protein Crossmatch 02/24/20 02/24/20 02/24/20 05:33 05:55 05:55 WBC RBC 3.17 L Hgb 9.4 L Hct 28.2 L RDW 16.1 H Plt Count 96 L Lymph % (Auto) Price % (Auto) Eos % (Auto) Price # Seg Neutrophils % Seg Neuts % (Manual) Lymphocytes % (Manual) Monocytes % (Manual) Seg Neutrophils # Seg Neutrophils # Man Monocytes # (Manual) PT INR D-Dimer Heparin Anti-Xa Level ABG pH ABG pO2 ABG HCO3 ABG O2 Saturation ABG Base Excess ABG Hemoglobin Sodium 146 H Potassium Chloride 110.0 H Carbon Dioxide BUN 69 H Creatinine 2.6 H Glucose 119 H POC Glucose 156 H Lactic Acid Calcium 7.2 L Phosphorus Magnesium Ferritin AST ALT Lactate Dehydrogenase Total Creatine Kinase 362 H CK-MB (CK-2) Troponin T C-Reactive Protein NT-Pro-B Natriuret Pep Total Protein Albumin Triglycerides HDL Cholesterol Urine WBC (Auto) Urine Creatinine Urine Chloride Urine Total Protein Crossmatch 02/24/20 02/24/20 02/24/20 11:51 18:35 23:41 WBC RBC Hgb Hct RDW Plt Count Lymph % (Auto) Price % (Auto) Eos % (Auto) Price # Seg Neutrophils % Seg Neuts % (Manual) Lymphocytes % (Manual) Monocytes % (Manual) Seg Neutrophils # Seg Neutrophils # Man Monocytes # (Manual) PT INR D-Dimer Heparin Anti-Xa Level ABG pH ABG pO2 ABG HCO3 ABG O2 Saturation ABG Base Excess ABG Hemoglobin Sodium Potassium Chloride Carbon Dioxide BUN Creatinine Glucose POC Glucose 155 H 134 H 148 H Lactic Acid Calcium Phosphorus Magnesium Ferritin AST ALT Lactate Dehydrogenase Total Creatine Kinase CK-MB (CK-2) Troponin T C-Reactive Protein NT-Pro-B Natriuret Pep Total Protein Albumin Triglycerides HDL Cholesterol Urine WBC (Auto) Urine Creatinine Urine Chloride Urine Total Protein Crossmatch 02/25/20 02/25/20 02/25/20 05:11 10:39 11:40 WBC RBC Hgb 8.6 L Hct 25.6 L RDW Plt Count 79 L Lymph % (Auto) Price % (Auto) Eos % (Auto) Price # Seg Neutrophils % Seg Neuts % (Manual) Lymphocytes % (Manual) Monocytes % (Manual) Seg Neutrophils # Seg Neutrophils # Man Monocytes # (Manual) PT INR D-Dimer Heparin Anti-Xa Level ABG pH ABG pO2 ABG HCO3 ABG O2 Saturation ABG Base Excess ABG Hemoglobin Sodium Potassium Chloride 108.6 H Carbon Dioxide BUN 77 H Creatinine 2.9 H Glucose 121 H POC Glucose 119 H Lactic Acid Calcium 7.5 L Phosphorus Magnesium Ferritin AST ALT Lactate Dehydrogenase Total Creatine Kinase CK-MB (CK-2) Troponin T C-Reactive Protein NT-Pro-B Natriuret Pep Total Protein Albumin Triglycerides HDL Cholesterol Urine WBC (Auto) Urine Creatinine Urine Chloride Urine Total Protein Crossmatch 02/25/20 02/25/20 02/25/20 15:24 17:21 23:18 WBC RBC Hgb Hct RDW Plt Count Lymph % (Auto) Price % (Auto) Eos % (Auto) Price # Seg Neutrophils % Seg Neuts % (Manual) Lymphocytes % (Manual) Monocytes % (Manual) Seg Neutrophils # Seg Neutrophils # Man Monocytes # (Manual) PT INR D-Dimer Heparin Anti-Xa Level ABG pH ABG pO2 ABG HCO3 ABG O2 Saturation ABG Base Excess ABG Hemoglobin Sodium Potassium Chloride Carbon Dioxide BUN Creatinine Glucose POC Glucose 138 H 139 H 109 H Lactic Acid Calcium Phosphorus Magnesium Ferritin AST ALT Lactate Dehydrogenase Total Creatine Kinase CK-MB (CK-2) Troponin T C-Reactive Protein NT-Pro-B Natriuret Pep Total Protein Albumin Triglycerides HDL Cholesterol Urine WBC (Auto) Urine Creatinine Urine Chloride Urine Total Protein Crossmatch 02/26/20 02/26/20 02/26/20 05:55 12:12 13:02 WBC RBC Hgb Hct RDW Plt Count Lymph % (Auto) Price % (Auto) Eos % (Auto) Price # Seg Neutrophils % Seg Neuts % (Manual) Lymphocytes % (Manual) Monocytes % (Manual) Seg Neutrophils # Seg Neutrophils # Man Monocytes # (Manual) PT INR D-Dimer Heparin Anti-Xa Level ABG pH ABG pO2 ABG HCO3 ABG O2 Saturation ABG Base Excess ABG Hemoglobin Sodium 146 H Potassium Chloride 112.7 H Carbon Dioxide 20 L BUN 81 H Creatinine 3.0 H Glucose 123 H POC Glucose 111 H 128 H Lactic Acid Calcium 7.9 L Phosphorus Magnesium Ferritin AST ALT Lactate Dehydrogenase Total Creatine Kinase CK-MB (CK-2) Troponin T C-Reactive Protein NT-Pro-B Natriuret Pep Total Protein Albumin Triglycerides HDL Cholesterol Urine WBC (Auto) Urine Creatinine Urine Chloride Urine Total Protein Crossmatch 02/26/20 02/26/20 02/27/20 17:57 23:16 06:05 WBC RBC 2.84 L Hgb 8.5 L Hct 25.0 L RDW 15.8 H Plt Count 65 L Lymph % (Auto) Price % (Auto) 12.1 H Eos % (Auto) 5.1 H Price # Seg Neutrophils % Seg Neuts % (Manual) Lymphocytes % (Manual) Monocytes % (Manual) Seg Neutrophils # Seg Neutrophils # Man Monocytes # (Manual) PT INR D-Dimer Heparin Anti-Xa Level ABG pH ABG pO2 ABG HCO3 ABG O2 Saturation ABG Base Excess ABG Hemoglobin Sodium Potassium Chloride Carbon Dioxide BUN Creatinine Glucose POC Glucose 156 H 168 H Lactic Acid Calcium Phosphorus Magnesium Ferritin AST ALT Lactate Dehydrogenase Total Creatine Kinase CK-MB (CK-2) Troponin T C-Reactive Protein NT-Pro-B Natriuret Pep Total Protein Albumin Triglycerides HDL Cholesterol Urine WBC (Auto) Urine Creatinine Urine Chloride Urine Total Protein Crossmatch 09/01/0802/27/20 02/27/20 06:05 11:44 19:00 WBC RBC Hgb Hct RDW Plt Count Lymph % (Auto) Price % (Auto) Eos % (Auto) Price # Seg Neutrophils % Seg Neuts % (Manual) Lymphocytes % (Manual) Monocytes % (Manual) Seg Neutrophils # Seg Neutrophils # Man Monocytes # (Manual) PT INR D-Dimer Heparin Anti-Xa Level ABG pH ABG pO2 ABG HCO3 ABG O2 Saturation ABG Base Excess ABG Hemoglobin Sodium 146 H Potassium Chloride 110.2 H Carbon Dioxide BUN 80 H Creatinine 3.3 H Glucose POC Glucose 116 H 134 H Lactic Acid Calcium 7.8 L Phosphorus Magnesium Ferritin AST ALT Lactate Dehydrogenase Total Creatine Kinase CK-MB (CK-2) Troponin T C-Reactive Protein NT-Pro-B Natriuret Pep Total Protein Albumin Triglycerides HDL Cholesterol Urine WBC (Auto) Urine Creatinine Urine Chloride Urine Total Protein Crossmatch 02/27/20 02/28/20 02/28/20 23:52 04:52 04:52 WBC RBC 2.73 L Hgb 8.1 L Hct 23.9 L RDW 15.9 H Plt Count 74 L Lymph % (Auto) Price % (Auto) 14.1 H Eos % (Auto) Price # 1.0 H Seg Neutrophils % Seg Neuts % (Manual) Lymphocytes % (Manual) Monocytes % (Manual) Seg Neutrophils # Seg Neutrophils # Man Monocytes # (Manual) PT INR D-Dimer Heparin Anti-Xa Level ABG pH ABG pO2 ABG HCO3 ABG O2 Saturation ABG Base Excess ABG Hemoglobin Sodium Potassium Chloride 107.5 H Carbon Dioxide BUN 81 H Creatinine 3.0 H Glucose 128 H POC Glucose 117 H Lactic Acid Calcium 7.7 L Phosphorus Magnesium Ferritin AST ALT Lactate Dehydrogenase Total Creatine Kinase CK-MB (CK-2) Troponin T C-Reactive Protein NT-Pro-B Natriuret Pep Total Protein Albumin Triglycerides HDL Cholesterol Urine WBC (Auto) Urine Creatinine Urine Chloride Urine Total Protein Crossmatch 02/28/20 02/28/20 02/28/20 05:52 12:19 16:24 WBC RBC Hgb Hct RDW Plt Count Lymph % (Auto) Price % (Auto) Eos % (Auto) Price # Seg Neutrophils % Seg Neuts % (Manual) Lymphocytes % (Manual) Monocytes % (Manual) Seg Neutrophils # Seg Neutrophils # Man Monocytes # (Manual) PT INR D-Dimer Heparin Anti-Xa Level ABG pH ABG pO2 ABG HCO3 ABG O2 Saturation ABG Base Excess ABG Hemoglobin Sodium Potassium Chloride Carbon Dioxide BUN Creatinine Glucose POC Glucose 148 H 152 H 118 H Lactic Acid Calcium Phosphorus Magnesium Ferritin AST ALT Lactate Dehydrogenase Total Creatine Kinase CK-MB (CK-2) Troponin T C-Reactive Protein NT-Pro-B Natriuret Pep Total Protein Albumin Triglycerides HDL Cholesterol Urine WBC (Auto) Urine Creatinine Urine Chloride Urine Total Protein Crossmatch 02/29/20 02/29/20 02/29/20 00:12 05:21 06:00 WBC RBC 2.73 L Hgb 8.2 L Hct 24.0 L RDW 16.4 H Plt Count 88 L Lymph % (Auto) Price % (Auto) 13.9 H Eos % (Auto) Price # 1.2 H Seg Neutrophils % Seg Neuts % (Manual) Lymphocytes % (Manual) Monocytes % (Manual) Seg Neutrophils # Seg Neutrophils # Man Monocytes # (Manual) PT INR D-Dimer Heparin Anti-Xa Level ABG pH ABG pO2 ABG HCO3 ABG O2 Saturation ABG Base Excess ABG Hemoglobin Sodium Potassium Chloride Carbon Dioxide BUN Creatinine Glucose POC Glucose 144 H 184 H Lactic Acid Calcium Phosphorus Magnesium Ferritin AST ALT Lactate Dehydrogenase Total Creatine Kinase CK-MB (CK-2) Troponin T C-Reactive Protein NT-Pro-B Natriuret Pep Total Protein Albumin Triglycerides HDL Cholesterol Urine WBC (Auto) Urine Creatinine Urine Chloride Urine Total Protein Crossmatch 02/29/20 02/29/20 02/29/20 06:00 12:19 16:13 WBC RBC Hgb Hct RDW Plt Count Lymph % (Auto) Price % (Auto) Eos % (Auto) Price # Seg Neutrophils % Seg Neuts % (Manual) Lymphocytes % (Manual) Monocytes % (Manual) Seg Neutrophils # Seg Neutrophils # Man Monocytes # (Manual) PT INR D-Dimer Heparin Anti-Xa Level ABG pH ABG pO2 ABG HCO3 ABG O2 Saturation ABG Base Excess ABG Hemoglobin Sodium Potassium Chloride Carbon Dioxide BUN 89 H Creatinine 3.4 H Glucose 147 H POC Glucose 167 H 175 H Lactic Acid Calcium 7.7 L Phosphorus Magnesium Ferritin AST ALT Lactate Dehydrogenase Total Creatine Kinase CK-MB (CK-2) Troponin T C-Reactive Protein NT-Pro-B Natriuret Pep Total Protein Albumin Triglycerides HDL Cholesterol Urine WBC (Auto) Urine Creatinine Urine Chloride Urine Total Protein Crossmatch 03/01/20 03/01/20 03/01/20 00:00 05:04 05:04 WBC RBC 2.58 L Hgb 7.6 L Hct 23.1 L RDW 15.9 H Plt Count 121 L Lymph % (Auto) Price % (Auto) 13.7 H Eos % (Auto) Price # 1.3 H Seg Neutrophils % Seg Neuts % (Manual) Lymphocytes % (Manual) Monocytes % (Manual) Seg Neutrophils # Seg Neutrophils # Man Monocytes # (Manual) PT INR D-Dimer Heparin Anti-Xa Level ABG pH ABG pO2 ABG HCO3 ABG O2 Saturation ABG Base Excess ABG Hemoglobin Sodium Potassium Chloride 108.5 H Carbon Dioxide BUN 99 H Creatinine 3.9 H Glucose 117 H POC Glucose 159 H Lactic Acid Calcium 7.9 L Phosphorus Magnesium Ferritin AST ALT Lactate Dehydrogenase Total Creatine Kinase CK-MB (CK-2) Troponin T C-Reactive Protein NT-Pro-B Natriuret Pep Total Protein Albumin Triglycerides HDL Cholesterol Urine WBC (Auto) Urine Creatinine Urine Chloride Urine Total Protein Crossmatch 03/01/20 03/01/20 03/01/20 05:34 12:27 17:36 WBC RBC Hgb Hct RDW Plt Count Lymph % (Auto) Price % (Auto) Eos % (Auto) Price # Seg Neutrophils % Seg Neuts % (Manual) Lymphocytes % (Manual) Monocytes % (Manual) Seg Neutrophils # Seg Neutrophils # Man Monocytes # (Manual) PT INR D-Dimer Heparin Anti-Xa Level ABG pH ABG pO2 ABG HCO3 ABG O2 Saturation ABG Base Excess ABG Hemoglobin Sodium Potassium Chloride Carbon Dioxide BUN Creatinine Glucose POC Glucose 153 H 135 H 139 H Lactic Acid Calcium Phosphorus Magnesium Ferritin AST ALT Lactate Dehydrogenase Total Creatine Kinase CK-MB (CK-2) Troponin T C-Reactive Protein NT-Pro-B Natriuret Pep Total Protein Albumin Triglycerides HDL Cholesterol Urine WBC (Auto) Urine Creatinine Urine Chloride Urine Total Protein Crossmatch 03/01/20 03/02/20 03/02/20 21:05 07:00 08:24 WBC RBC Hgb Hct RDW Plt Count Lymph % (Auto) Price % (Auto) Eos % (Auto) Price # Seg Neutrophils % Seg Neuts % (Manual) Lymphocytes % (Manual) Monocytes % (Manual) Seg Neutrophils # Seg Neutrophils # Man Monocytes # (Manual) PT INR D-Dimer Heparin Anti-Xa Level ABG pH ABG pO2 ABG HCO3 ABG O2 Saturation ABG Base Excess ABG Hemoglobin Sodium Potassium Chloride Carbon Dioxide BUN Creatinine Glucose POC Glucose 133 H 147 H 141 H Lactic Acid Calcium Phosphorus Magnesium Ferritin AST ALT Lactate Dehydrogenase Total Creatine Kinase CK-MB (CK-2) Troponin T C-Reactive Protein NT-Pro-B Natriuret Pep Total Protein Albumin Triglycerides HDL Cholesterol Urine WBC (Auto) Urine Creatinine Urine Chloride Urine Total Protein Crossmatch 03/02/20 03/02/20 03/02/20 08:41 08:41 11:43 WBC RBC 1.78 L Hgb 5.4 L* Hct 16.0 L* D RDW 16.5 H Plt Count 130 L Lymph % (Auto) Price % (Auto) 11.8 H Eos % (Auto) Price # 1.0 H Seg Neutrophils % Seg Neuts % (Manual) Lymphocytes % (Manual) Monocytes % (Manual) Seg Neutrophils # Seg Neutrophils # Man Monocytes # (Manual) PT INR D-Dimer Heparin Anti-Xa Level ABG pH ABG pO2 ABG HCO3 ABG O2 Saturation ABG Base Excess ABG Hemoglobin Sodium 146 H Potassium 3.0 L D Chloride 118.9 H Carbon Dioxide 17 L D BUN 80 H Creatinine 3.4 H Glucose 103 H POC Glucose 141 H Lactic Acid Calcium 5.8 L* D Phosphorus 1.20 L Magnesium Ferritin AST ALT Lactate Dehydrogenase Total Creatine Kinase CK-MB (CK-2) Troponin T C-Reactive Protein NT-Pro-B Natriuret Pep Total Protein Albumin Triglycerides HDL Cholesterol Urine WBC (Auto) Urine Creatinine Urine Chloride Urine Total Protein Crossmatch
[2020-03-02] MEDS: CALCITRIOL 0.5 MCG CAP PO SCH (16:19)
[2020-03-02] MEDS: MEROPENEM/NS 500 MG/50 ML 500 MG/50 ML BAG IV SCH ×2 (16:32→22:05)
[2020-03-02] MEDS: CALCIUM CARBONATE 1250 MG/5 ML ORAL LIQD FEEDTUBE SCH (21:31)
[2020-03-02] MEDS ORDERED: ACETAMINOPHEN 325 MG TAB PO PRN (22:04)
[2020-03-03] MEDS: INSULIN REGULAR, HUMAN 100 UNIT/ML 3ML VIAL SUB-Q SCH ×4 (00:29→19:25)
[2020-03-03] MEDS: SODIUM CHLORIDE 0.9% 1000 ML 1,000 ML IV SCH (02:56)
[2020-03-03 05:59] LABS: Creatinine,Urine 89.1 mg/dL (0.1-20.0)
[2020-03-03 06:00] LABS: Creatinine 24 Hour,Urine 0.2 (0.8-2.8)
[2020-03-03 07:54] LABS: Calcium 7.8 mg/dL (8.4-10.2)
[2020-03-03 08:01] LABS: Basophils # (Auto) 0.1 K/mm3 (0.0-0.1); Basophils % (Auto) 0.9 % (0.0-1.8); Eosinophils # (Auto) 0.1 K/mm3 (0.0-0.4); Eosinophils % (Auto) 1.3 % (0.0-4.3); Hematocrit 26.9 % (35.5-45.6); Hemoglobin 9.1 gm/dl (11.8-15.2); Lymphocytes # (Auto) 1.9 K/mm3 (1.2-5.4); Lymphocytes % (Auto) 16.9 % (13.4-35.0); Mean Corpuscular HGB Conc 34 % (32-34); Mean Corpuscular Volume 87 fl (84-94); Monocytes # (Auto) 1.2 K/mm3 (0.0-0.8); Monocytes % (Auto) 10.2 % (0.0-7.3); Platelet Count 226 K/mm3 (140-440); Red Cell Distribution Width 16.7 % (13.2-15.2)
[2020-03-03] MEDS ORDERED: MAGNESIUM SULFATE 2 GM/50 ML BAG IV ONE (08:09)
--- NOTE | 2020-03-03 08:15 | Progress Note ---
Assessment and Plan Assessment and plan: --Severe anemia; hemoglobin of 5.4;s/p transfusion Transfused 2 units of PRBC yesterday Hemoglobin improved to 9.1 Closely monitor H&H --Hypokalemia/hypophosphatemia/hypocalcemia Replenished with potassium phosphate, calcium Levels improved, closely monitor --Hypomagnesemia; replenish with 2 g of mag sulfate Monitor levels --Dysphagia; oropharyngeal Oropharyngeal dysphagia per speech therapist Patient needs PEG placement However patient's adult friend Ms. Marquez Who expressed that Mr. Bernardo Joseph would not want to have PEG tube. Does not want the PEG tube placement GI consult was discontinued --Sepsis; right pneumonia/HCAP s/p Vanco and cefepime , Monitor off antibiotics ID following follow cultures, supportive care ID,Pulm following --New episodes of fever; Patient already completed course of antibiotics for sepsis/pneumonia Check new set of blood cultures, monitor off antibiotics ID following --Bilateral pneumonia; present on initial admission As noted above. COVID markers elevated Ferritin 1191. Ddmer >10,000. CRP 18. LDH 381. Recent sputum cx with PMDR Proteus, MRSA. H flu. MRSA PCR positive. --elevated D-dimers More than 10,000, V/Q scan low probability for PE lower extremity venous Doppler,neg DVT dc heparin Drip, prophylactic anticoagulation --Rhabdomyolysis; Continue IV fluids, input output monitoring, CK levels trending down CK [id number] We will monitor renal function --COVID-19 test negative x2 during last admission Test negative during this admission 02/18/2020 However patient has very high levels of inflammatory markers ID consulted, trend the markers --Acute resp failure with hypoxia/extubated 02/19/2020 on nasal cannula oxygen, saturating well Very high ddimer suspect PE post COVID. --Acute kidney injury on chronic kidney disease Secondary to ATN, gentle hydration Avoid nephrotoxins, monitor renal function Nephrology following -- DVT prophylaxis SCD, Heparin ,renal dose PT OT, DC planning 02/24/2020. Patient extubated yesterday and tolerated nasal cannula. Patient's baseline creatinine appears to be 1.6-1.8 2014. Continue IV fluid hydration per nephrology recommendations. CK level was elevated. Therefore, etiology may be from acute kidney injury and rhabdomyolysis. Renal ultrasound revealed chronic medical renal disease and no hydronephrosis. Urine eosinophils negative. A waiting placement. I discussed the case with case management. 02/25/2020. Patient currently with nasogastric tube and tube feedings at 45 cc an hour. Speech evaluation for swallowing. Patient currently with nasal cannula 3 L O2. Creatinine remains elevated. Recheck BMP. Continue free water flushes 200 ml q 4 hrs via NGT for hypernatremia. Urine eosinophils negative, calculated protein to cr ratio 1 g, monitor. Continue vancomycin and cefepime per ID recommendations. 02/26/2020. Speech therapy evaluation reports oropharyngeal dysphagia. Patient will likely need PEG tube placement. Attempted to call family renetta Marquez to discuss possible PEG placement, no answer. Patient with adequate urine output but creatinine still not improved significantly. Albumin 25% 100 mls q6H X 3 doses. Continue per nephrology recommendations. Antibiotics discontinued yesterday per ID recommendations. 02/27/2020. Speech therapy evaluation reports oropharyngeal dysphagia. Patient will likely need PEG tube placement. Attempted to call family Mica Marquez to discuss possible PEG placement, no answer. We will need case management for assistance. Continue per ID and nephrology recommendations. 02/27; follow speech and swallow evaluation, possible PEG placement, consult GI once family is agreeable, unable to reach family 02/28; patient needs PEG placement, unable to contact real family members, I talked to [person to contact /next of kin as per medical records] Ms.Sparks Nino Who agreed for DNR status, is not the real family member per case management/patient high school admissions representative . Will check with [facility] and try to find next of kin/family member for consent for PEG placement as well as consent for DNR/hospice status. 03/01; family and ethics committee meeting, to decide CODE STATUS and PEG placement 03/02; patient has multiple electrolyte abnormalities, severe anemia, 2 units PRBC transfusion now, poor prognosis, DNR status Considering hospice 03/03; electrolytes improved, received 2 units PRBC yesterday, Hb 9.1, patient continues to be critically ill, hypomagnesemia gave 2 g IV mag sulfate, follow electrolytes History Interval history: I have seen and examined the patient at the bedside Patient's chart and medications reviewed Patient received 2 units of PRBC yesterday, hemoglobin improved to 9.1 Patient is chronically ill looking In mild distress Vital signs reviewed Hospitalist Physical - Constitutional Vitals: Temp Pulse Resp BP Pulse Ox 97.7 F 95 H 26 H 105/70 100 03/03/20 04:13 03/03/20 04:13 03/03/20 04:13 03/03/20 04:13 03/03/20 04:13 General appearance: Present: mild distress, well-nourished, other (confused, chronically ill looking, noncommunicative) - EENT Eyes: Present: PERRL, EOM intact - Neck Neck: Present: supple, normal ROM - Respiratory Respiratory effort: normal, labored Respiratory: bilateral: diminished, rhonchi, negative: rales, wheezing - Cardiovascular Rhythm: regular Heart Sounds: Present: S1 & S2 - Extremities Extremities: no ischemia, No edema - Abdominal General gastrointestinal: soft, non-tender, non-distended, normal bowel sounds - Integumentary Integumentary: Present: clear, warm - Psychiatric Psychiatric: other (Noncommunicative) - Neurologic Neurologic: other (Noncommunicative) HEART Score - HEART Score Troponin: Troponin T 0.573 ng/mL (0.00-0.029) H* D 02/20/20 17:20 Results - Labs CBC & Chem 7: 03/03/20 06:46 03/03/20 06:46 Labs: Laboratory Last Values WBC 11.3 K/mm3 (4.5-11.0) H 03/03/20 06:46 RBC 3.10 M/mm3 (3.65-5.03) L 03/03/20 06:46 Hgb 9.1 gm/dl (11.8-15.2) L D 03/03/20 06:46 Hct 26.9 % (35.5-45.6) L D 03/03/20 06:46 MCV 87 fl (84-94) 03/03/20 06:46 MCH 29 pg (28-32) 03/03/20 06:46 MCHC 34 % (32-34) 03/03/20 06:46 RDW 16.7 % (13.2-15.2) H 03/03/20 06:46 Plt Count 226 K/mm3 (140-440) 03/03/20 06:46 Lymph % (Auto) 16.9 % (13.4-35.0) 03/03/20 06:46 [place] % (Auto) 10.2 % (0.0-7.3) H 03/03/20 06:46 Eos % (Auto) 1.3 % (0.0-4.3) 03/03/20 06:46 Baso % (Auto) 0.9 % (0.0-1.8) 03/03/20 06:46 Lymph # 1.9 K/mm3 (1.2-5.4) 03/03/20 06:46 [place] # 1.2 K/mm3 (0.0-0.8) H 03/03/20 06:46 Eos # 0.1 K/mm3 (0.0-0.4) 03/03/20 06:46 Baso # 0.1 K/mm3 (0.0-0.1) 03/03/20 06:46 Add Manual Diff Complete 02/17/20 16:28 Total Counted 100 02/17/20 16:28 Seg Neutrophils % 70.7 % (40.0-70.0) H 03/03/20 06:46 Seg Neuts % (Manual) 84.0 % (40.0-70.0) H 02/17/20 16:28 Band Neutrophils % 0 % 02/17/20 16:28 Lymphocytes % (Manual) 8.0 % (13.4-35.0) L 02/17/20 16:28 Reactive Lymphs % (Man) 0 % 02/17/20 16:28 Monocytes % (Manual) 8.0 % (0.0-7.3) H 02/17/20 16:28 Eosinophils % (Manual) 0 % (0.0-4.3) 02/17/20 16:28 Basophils % (Manual) 0 % (0.0-1.8) 02/17/20 16:28 Metamyelocytes % 0 % 02/17/20 16:28 Myelocytes % 0 % 02/17/20 16:28 Promyelocytes % 0 % 02/17/20 16:28 Blast Cells % 0 % 02/17/20 16:28 Nucleated RBC % Not Reportable 02/17/20 16:28 Seg Neutrophils # 8.0 K/mm3 (1.8-7.7) H 03/03/20 06:46 Seg Neutrophils # Man 19.7 K/mm3 (1.8-7.7) H 02/17/20 16:28 Band Neutrophils # 0.0 K/mm3 02/17/20 16:28 Lymphocytes # (Manual) 1.9 K/mm3 (1.2-5.4) 02/17/20 16:28 Abs React Lymphs (Man) 0.0 K/mm3 02/17/20 16:28 Monocytes # (Manual) 1.9 K/mm3 (0.0-0.8) H 02/17/20 16:28 Eosinophils # (Manual) 0.0 K/mm3 (0.0-0.4) 02/17/20 16:28 Basophils # (Manual) 0.0 K/mm3 (0.0-0.1) 02/17/20 16:28 Metamyelocytes # 0.0 K/mm3 02/17/20 16:28 Myelocytes # 0.0 K/mm3 02/17/20 16:28 Promyelocytes # 0.0 K/mm3 02/17/20 16:28 Blast Cells # 0.0 K/mm3 02/17/20 16:28 WBC Morphology Not Reportable 02/17/20 16:28 Hypersegmented Neuts Not Reportable 02/17/20 16:28 Hyposegmented Neuts Not Reportable 02/17/20 16:28 Hypogranular Neuts Not Reportable 02/17/20 16:28 Smudge Cells Not Reportable 02/17/20 16:28 Toxic Granulation Not Reportable 02/17/20 16:28 Toxic Vacuolation Not Reportable 02/17/20 16:28 Dohle Bodies Not Reportable 02/17/20 16:28 Pelger-Huet Anomaly Not Reportable 02/17/20 16:28 Krys Rods Not Reportable 02/17/20 16:28 Platelet Estimate Not Reportable 02/17/20 16:28 Clumped Platelets Not Reportable 02/17/20 16:28 Plt Clumps, EDTA Not Reportable 02/17/20 16:28 Large Platelets Not Reportable 02/17/20 16:28 Giant Platelets Not Reportable 02/17/20 16:28 Platelet Satelliting Not Reportable 02/17/20 16:28 Plt Morphology Comment Not Reportable 02/17/20 16:28 RBC Morphology Normal 02/17/20 16:28 Dimorphic RBCs Not Reportable 02/17/20 16:28 Polychromasia Not Reportable 02/17/20 16:28 Hypochromasia Not Reportable 02/17/20 16:28 Poikilocytosis Not Reportable 02/17/20 16:28 Anisocytosis Not Reportable 02/17/20 16:28 Microcytosis Not Reportable 02/17/20 16:28 Macrocytosis Not Reportable 02/17/20 16:28 Spherocytes Not Reportable 02/17/20 16:28 Pappenheimer Bodies Not Reportable 02/17/20 16:28 Sickle Cells Not Reportable 02/17/20 16:28 Target Cells Not Reportable 02/17/20 16:28 Tear Drop Cells Not Reportable 02/17/20 16:28 Ovalocytes Not Reportable 02/17/20 16:28 Helmet Cells Not Reportable 02/17/20 16:28 [place] Bodies Not Reportable 02/17/20 16:28 [place] Rings Not Reportable 02/17/20 16:28 Christo Cells Not Reportable 02/17/20 16:28 Bite Cells Not Reportable 02/17/20 16:28 Crenated Cell Not Reportable 02/17/20 16:28 Elliptocytes Not Reportable 02/17/20 16:28 Acanthocytes (Spur) Not Reportable 02/17/20 16:28 Rouleaux Not Reportable 02/17/20 16:28 Hemoglobin C Crystals Not Reportable 02/17/20 16:28 Schistocytes Not Reportable 02/17/20 16:28 Malaria parasites Not Reportable 02/17/20 16:28 Keron Bodies Not Reportable 02/17/20 16:28 Hem Pathologist Commnt No 02/17/20 16:28 PT 18.6 Sec. (12.2-14.9) H 02/19/20 03:20 INR 1.53 (0.87-1.13) H 02/19/20 03:20 APTT 26.8 Sec. (24.2-36.6) 02/17/20 16:28 D-Dimer 1327.30 ng/mlDDU (0-234) H 02/20/20 17:20 Heparin Anti-Xa Level < 0.10 U.I./ml (0.3-0.7) L 02/21/20 15:41 ABG pH 7.355 pH Units (7.350-7.450) 02/19/20 05:08 ABG pCO2 27.3 mm Hg 02/19/20 05:08 ABG pO2 168.2 mm Hg (80.0-90.0) H 02/19/20 05:08 ABG HCO3 14.9 mmol/L (20.0-26.0) L 02/19/20 05:08 ABG O2 Saturation 99.0 % (95.0-99.0) 02/19/20 05:08 ABG O2 Content 11.7 (0.0-44) 02/19/20 05:08 ABG Base Excess -9.5 mmol/L (-2.0-3.0) L 02/19/20 05:08 ABG Hemoglobin 8.3 gm/dl (14.0-18.0) L 02/19/20 05:08 ABG Carboxyhemoglobin 1.2 % (0.0-5.0) 02/19/20 05:08 ABG Methemoglobin 0.7 % (0.0-1.5) 02/19/20 05:08 Oxyhemoglobin 97.2 % (95.0-99.0) 02/19/20 05:08 FiO2 40 % 02/19/20 05:08 Sodium 141 mmol/L (137-145) 03/03/20 06:46 Potassium 4.5 mmol/L (3.6-5.0) D 03/03/20 06:46 Chloride 107.9 mmol/L (98-107) H 03/03/20 06:46 Carbon Dioxide 19 mmol/L (22-30) L 03/03/20 06:46 Anion Gap 19 mmol/L 03/03/20 06:46 BUN 103 mg/dL (9-20) H 03/03/20 06:46 Creatinine 4.7 mg/dL (0.8-1.3) H 03/03/20 06:46 Estimated GFR 15 ml/min 03/03/20 06:46 BUN/Creatinine Ratio 22 % 03/03/20 06:46 Glucose 106 mg/dL (75-100) H 03/03/20 06:46 POC Glucose 117 (70-105) H 03/03/20 05:59 Lactic Acid 1.90 mmol/L (0.7-2.0) 02/17/20 22:56 Calcium 7.8 mg/dL (8.4-10.2) L D 03/03/20 06:46 Phosphorus 3.70 mg/dL (2.5-4.5) D 03/03/20 06:46 Magnesium 1.60 mg/dL (1.7-2.3) L 03/03/20 06:46 Ferritin 1191.0 ng/mL (30.0-300.0) H 02/17/20 16:28 Total Bilirubin 0.50 mg/dL (0.1-1.2) 02/17/20 16:28 AST 65 units/L (5-40) H 02/17/20 16:28 ALT 81 units/L (7-56) H 02/17/20 16:28 Alkaline Phosphatase 101 units/L (35-129) 02/17/20 16:28 Lactate Dehydrogenase 381 units/L (91-180) H 02/17/20 16:28 Total Creatine Kinase 362 units/L (55-170) H 02/24/20 05:55 CK-MB (CK-2) 78.0 ng/mL (0.0-4.0) H 02/18/20 10:10 CK-MB (CK-2) Rel Index 1.3 (0-4) 02/18/20 10:10 Troponin T 0.573 ng/mL (0.00-0.029) H* D 02/20/20 17:20 C-Reactive Protein 18.20 mg/dL (0.00-1.30) H 02/17/20 16:28 NT-Pro-B Natriuret Pep 1980 pg/mL (0-900) H 02/17/20 16:28 Total Protein 5.4 g/dL (6.3-8.2) L 02/17/20 16:28 Albumin 2.3 g/dL (3.9-5) L 02/17/20 16:28 Albumin/Globulin Ratio 0.7 % 02/17/20 16:28 Triglycerides 164 mg/dL (2-149) H 02/18/20 10:10 Cholesterol 133 mg/dL (50-199) 02/18/20 10:10 LDL Cholesterol Direct 71 mg/dL (50-130) 02/18/20 10:10 HDL Cholesterol 38 mg/dL (40-59) L 02/18/20 10:10 Cholesterol/HDL Ratio 3.50 % 02/18/20 10:10 Procalcitonin 8.38 ng/mL (<0.15) 02/28/20 14:43 TSH 3.490 mlU/mL (0.270-4.200) 02/17/20 16:28 Urine Color Yellow (Yellow) 02/17/20 Unknown Urine Turbidity Slightly-cloudy (Clear) 02/17/20 Unknown Urine pH 5.0 (5.0-7.0) 02/17/20 Unknown Ur Specific [place] 1.010 (1.003-1.030) 02/17/20 Unknown Urine Protein 30 mg/dl mg/dL (Negative) 02/17/20 Unknown Urine Glucose (UA) Neg mg/dL (Negative) 02/17/20 Unknown Urine Ketones Neg mg/dL (Negative) 02/17/20 Unknown Urine Blood Mod (Negative) 02/17/20 Unknown Urine Nitrite Neg (Negative) 02/17/20 Unknown Urine Bilirubin Neg (Negative) 02/17/20 Unknown Urine Urobilinogen < 2.0 mg/dL (<2.0) 02/17/20 Unknown Ur Leukocyte Esterase Mod (Negative) 02/17/20 Unknown Urine WBC (Auto) 17.0 /HPF (0.0-6.0) H 02/17/20 Unknown Urine RBC (Auto) 17.0 /HPF (0.0-6.0) 02/17/20 Unknown U Epithel Cells (Auto) 4.0 /HPF (0-13.0) 02/17/20 Unknown Urine Bacteria (Auto) 1+ /HPF (Negative) 02/17/20 Unknown Urine Yeast (Budding) 2+ /HPF 02/17/20 Unknown Urine Eosinophils None seen (None Seen) 02/18/20 17:40 Urine Total Volume 200 ml 03/02/20 11:03 Urine Creatinine 89.1 mg/dL (0.1-20.0) H 03/02/20 11:03 Ur Creatinine 24 Hour 0.2 (0.8-2.8) L 03/02/20 11:03 Urine Microalbumin 5.9 mg/dL (0.1-34.0) 02/18/20 17:40 Microalb/Creat Ratio 167.6 ug/mg 02/18/20 17:40 Urine Sodium 104 mmol/L 02/18/20 17:40 Urine Chloride 81.0 mmolL (110-250) L 02/18/20 17:40 Urine Total Protein 38 mg/dL (5-11.8) H 02/18/20 17:40 Nasal Screen MRSA (PCR) Positive (Negative) 02/18/20 17:40 Random Vancomycin 15.6 ug/mL (0-40.0) 02/23/20 05:36 Coronavirus (PCR) Negative (Negative) 02/23/20 09:59 Blood Type B NEGATIVE 03/02/20 14:30 Antibody Screen Negative 03/02/20 14:30 Crossmatch See Detail 03/02/20 14:30 Microbiology: Microbiology 02/28/20 14:43 Peripheral/Venous Blood Culture - Preliminary NO GROWTH AFTER 72 HOURS 02/28/20 14:43 Peripheral/Venous Blood Culture - Preliminary NO GROWTH AFTER 72 HOURS - Diagnostic Impressions Diagnostic Impressions: Echocardiogram 02/19/20 15:05 Transthoracic Echocardiogram Indication: NSTEMI BP: 95/50 HR: 107 Conclusions *Global left ventricular systolic function is at the lower limits of normal. *The estimated ejection fraction is 45-50%. *Abnormal left ventricular diastolic filling is observed, consistent with impaired relaxation. *There is evidence of mild pulmonary hypertension. *There is no pericardial effusion. Findings Left Ventricle: The left ventricular chamber size is normal. Global left ventricular systolic function is at the lower limits of normal. The estimated ejection fraction is 45-50%. Abnormal left ventricular diastolic filling is observed, consistent with impaired relaxation. Left Atrium: The left atrial chamber size is normal. Right Ventricle: The right ventricular cavity size is normal. Right Atrium: The right atrial cavity size is normal. Aortic Valve: Mild aortic leaflet calcification is visualized. There is trace of aortic regurgitation. Mitral Valve: Mild mitral leaflet calcification is visualized. There is no evidence of mitral regurgitation. Tricuspid Valve: The tricuspid valve leaflets are normal. There is mild tricuspid regurgitation. The right ventricular systolic pressure is calculated at 40 mmHg. There is evidence of mild pulmonary hypertension. Pericardium: There is no pericardial effusion. Aorta: The aorta appears normal. Venous: The inferior vena cava appears normal. Measurements Chambers 2D Name Value Normal Range IVSd (2D) 1.09 cm (0.6 - 1.1) LVPWd (2D) 1 cm (0.6 - 1.1) LVIDd (2D) 3.55 cm (3.7 - 5.6) LVIDs (2D) 3 cm (2 - 3.8) LV FS (2D) 15.53 % - Ao root diameter (2D) 3.26 cm (2 - 3.7) Volumes/Mass Name Value Normal Range LA ESV SP 4CH (A/L) 17.3 ml - LA ESV SP 2CH (A/L) 18.3 ml - LA ESV BP (A/L) 19.14 ml - LA ESV BP (A/L) index 9.38 ml/m2 - LA ESV SP 4CH (MOD) 15.02 ml - LA ESV SP 2CH (MOD) 17.03 ml - LA ESV BP (MOD) 17.14 ml - LA ESV BP (MOD) index 8.4 ml/m2 - Diastolic/Systolic Function Name Value Normal Range MV E-wave Vmax 0.56 m/sec - MV deceleration time 197.94 msec - MV A-wave Vmax 1.36 m/sec - MV E:A ratio 0.41 ratio - Aortic Valve Name Value Normal Range AV Vmax 2.3 m/sec - AV VTI 33.77 cm - AV peak gradient 22.91 mmHg - AV mean gradient 12.27 mmHg - LVOT diameter 2.08 cm - LVOT Vmax 0.84 m/sec - LVOT VTI 14.82 cm - LVOT peak gradient 2.82 mmHg - LVOT mean gradient 2 mmHg - SV LVOT 50.44 ml - KALYAN (continuity Vmax) 1.24 cm2 - KALYAN (continuity VTI) 1.49 cm2 - AR PHT 460.84 msec - AR peak gradient 52.84 mmHg - Tricuspid Valve Name Value Normal Range TR Vmax 3.03 m/sec - TR peak gradient 37 mmHg - RAP 3 mmHg - RVSP 40 mmHg - Pulmonic Valve/Qp:Qs Name Value Normal Range PV acceleration time 106.57 msec - Yin/IV: Voiding Method Indwelling Catheter IV Catheter Type [Right INT / Saline Lock Forearm] IV Catheter Type [Right Hand] INT / Saline Lock IV Catheter Type [Left Upper INT / Saline Lock arm] IV Catheter Type [Right Triple Lumen Cath Femoral] IV Catheter Type [Right INT / Saline Lock Antecubital] Active Medications - Current Medications Current Medications: Generic Name Dose Route Start Last Admin Trade Name Freq PRN Reason Stop Dose Admin Acetaminophen 650 mg 03/02/20 22:04 03/02/20 22:24 Tylenol PO 650 mg Q6H PRN Administration Non Cardiac Pain or Temp>100.5 Albuterol 2.5 mg 02/26/20 09:18 Proventil IH Q4HRT PRN Shortness Of Breath Albuterol/Ipratropium 1 ampul 02/26/20 14:00 03/02/20 20:45 Duoneb *Not For Prn Use* IH 1 ampul TIDRT LOS Administration Lipase/Protease/Amylase 1 each 02/21/20 12:12 Pancreazchica Simon 10,500 Unit FEEDTUBE PRN PRN For Clogged Feeding Tube Aspirin 81 mg 02/18/20 10:00 03/02/20 09:18 Baby Aspirin PO 81 mg DAILY LOS Administration Atorvastatin Calcium 20 mg 02/18/20 22:00 03/02/20 21:30 Lipitor PO 20 mg QHS LOS Administration Calcitriol 1 mcg 03/02/20 12:00 03/02/20 16:19 Rocaltrol PO 1 mcg QDAY LOS Administration Calcium Carbonate/Glycine 1,250 mg 03/02/20 22:00 03/02/20 21:31 Calcium Carbonate FEEDTUBE 1,250 mg BID LOS Administration Dextrose 50 ml 02/18/20 12:55 D50w (25gm) Syringe IV Q30MIN PRN Hypoglycemia Protocol Docusate Sodium 100 mg 02/20/20 12:00 03/02/20 21:30 Colace PO 100 mg BID LOS Administration Epoetin Vadim 10,000 unit 03/02/20 12:00 03/02/20 16:33 Procrit IV 10,000 unit Fr LOS Administration Heparin Sodium (Porcine) 5,000 unit 02/24/20 22:00 03/02/20 21:30 Heparin SUB-Q 5,000 unit Q12HR LOS Administration Hydrophilic Ointment 1 applic 02/17/20 15:12 Vaseline Lip Therapy TP Q2HR PRN Dry Lips Sodium Chloride 1,000 mls @ 125 mls/hr 03/01/20 04:15 03/03/20 02:56 Nacl 0.9% 1000 Ml IV 125 mls/hr DIRECT LOS Administration Meropenem 500 mg in 50 mls @ 50 mls/hr 03/02/20 14:00 03/02/20 22:05 Merrem/Ns 500 Mg/50 Ml IV 50 mls/hr Q12HR LOS Administration Magnesium Sulfate 2 gm in 50 mls @ 25 mls/hr 03/03/20 08:09 Magnesium Sulfate 2gm/50ml IV 03/03/20 10:08 ONCE ONE Insulin Human Regular 0 unit 02/18/20 13:00 03/03/20 06:00 Humulin R SUB-Q Not Given Q6HR LOS Protocol Magnesium Hydroxide 30 ml 02/18/20 02:31 Milk Of Magnesia PO Q4H PRN Constipation Multi-Ingred Cream/Lotion/Oil/Oint 1 applic 02/17/20 15:12 02/19/20 04:25 Artificial Tears Ophth Oint OU 1 applic Q4HR PRN Administration Dry Eye(s) Simple Syrup 15 ml 02/21/20 12:12 Simple Syrup FEEDTUBE PRN PRN Hypoglycemia Simple Syrup 30 ml 02/21/20 12:12 Simple Syrup FEEDTUBE PRN PRN Hypoglycemia Sodium Bicarbonate 325 mg 02/21/20 12:12 Sodium Bicarbonate FEEDTUBE PRN PRN For Clogged Feeding Tube Sodium Chloride 10 ml 02/18/20 10:00 03/02/20 22:05 Sodium Chloride Flush Syringe 10 Ml IV 10 ml BID LOS Administration Sodium Chloride 10 ml 02/18/20 02:31 Sodium Chloride Flush Syringe 10 Ml IV PRN PRN LINE FLUSH Nutrition/Malnutrition Assess - Dietary Evaluation Nutrition/Malnutrition Findings: Nutrition Notes Start: 02/18/20 1 0:34 Freq: Status: Active Protocol: Document 02/29/20 10:53 [email or web address] (Rec: 02/29/20 12:00 [email or web address]) Co-Sign 02/29/20 10:53 LM Nutrition Notes Initial or Follow up Reassessment Current Diagnosis CKD(stage I-IV),Diabetes, Sepsis,Hypertension, Hyperlipidemia Other Pertinent Diagnosis UTI, Dementia Current Diet Nepro 1.8 at 45ml/hr Labs/Tests Glucose 147 Cr 3.4 BUN 89 Pertinent Medications Reviewed Height 6 ft Weight 87.2 kg [place] Body Weight (kg) 80.90 BMI 26.0 Subjective/Other Information Follow-up on TF and Bello administration. Pt is at goal rate of 45 mL/hr; flush 200 mL q4hr. Nurse reports that pt is tolerating TF well. Nurse has not seen Bello and thus has not administered the supplement. Pt was extubated. Percent of energy/protein needs met: 98%/100% Burn Absent Trauma Absent GI Symptoms None Skin Integrity/Comment Multiple pressure ulcers Current % PO Negligible Minimum of two criteria No physical signs of malnutrition #2 Nutrition Diagnosis Increased nutrient needs ( specify in comment below) Diagnosis Progress(for reassessment Continues documentation) #1 Nutrition Diagnosis Inadequate oral intake Diagnosis Progress(for reassessment Continues documentation) Is patient on ventilator? No Is Patient Ambulatory and/or Out of Bed No REE-([place]-confined to bed) 1979.156 Calculation [facility]ations [facility] Additional Notes PRO needs: 69 - 130 g (0.8 - 1 .5 g/kg) Fluid needs: 1 mL/kcal Nutrition Intervention Change Diet Order: Continue TF Nutrition Support: Nepro at 45ml/hr Flush at 200ml q4hr Kcal 1,944 Protein (gm) 87 Fluid (mL) 785 % RDI: 100 Add Supplement/Snack (indicate name/kcal Bello BID /protein ) Provides kCal: 190 Provides Protein (gm) 5 Goal #1 TF tolerance Goal #2 Meet 80% of energy and protein needs via TF. Goal #3 Pt will receive Bello BID Anticipated Discharge Needs: Unable to determine at this time. Follow-Up By: 03/06/20 Additional Comments Follow up for continued tolerance and Bello administration.
[2020-03-03] MEDS: IPRATROPIUM/ALBUTEROL SULFATE 3 ML AMPUL.NEB IH SCH ×3 (09:30→20:43)
[2020-03-03] MEDS: CALCITRIOL 0.5 MCG CAP PO SCH (10:18)
[2020-03-03] MEDS: ASPIRIN 81 MG TAB CHEW PO SCH (12:24)
[2020-03-03] MEDS: CALCIUM CARBONATE 1250 MG/5 ML ORAL LIQD FEEDTUBE SCH ×2 (12:25→21:26)
[2020-03-03] MEDS: HEPARIN 5,000 UNIT/1 ML VIAL SUB-Q SCH ×2 (12:25→21:26)
[2020-03-03] MEDS: DOCUSATE SODIUM 100 MG/10 ML ORAL LIQD PO SCH ×2 (12:25→21:26)
--- NOTE | 2020-03-03 12:42 | Progress Note ---
Assessment and Plan Acute hypoxic respiratory failure Septic Shock 2/2 PNA Bilateral PNA Acute Kidney Injury 2/2 ischemic ATN from septic shock, Rhabdo, on underlying CKD, no obstruction Elevated D-Dimers Plan: - Renal function reviewed, SCr level was 4.7 today, yesterday's SCr level was 3.4 - Review of labs in 2015 in [facility] did show SCr level between 1.6-1.8, most recent SCr level in [facility] prior to this admission was 2.2 on 02/14/20 - Serum Na level was 141 today - Pt will be going to hospice care, we will sign off - S/p Bicarb drip - CK level was elevated so could have AMMY from contribution from Rhabdo as well - No hydronephrosis noted on Renal US - Urine eosinophils negative, calculated protein to cr ratio 1 g, monitor - ID on board, f/u recs - Renal plan d/w Dr Sosa Subjective Date of service: 03/03/20 Principal diagnosis: Septic Shock Interval history: Nurse states pt will be going to hospice care Objective - Vital Signs Vital signs: Vital Signs - 12hr 03/03/20 03/03/20 03/03/20 00:45 01:15 01:45 Temperature 98.6 F 98.6 F 98.6 F Pulse Rate 98 H 96 H 98 H Respiratory 22 22 22 Rate Blood Pressure 99/66 93/63 104/67 O2 Sat by Pulse 98 100 100 Oximetry 03/03/20 03/03/20 03/03/20 02:15 02:45 03:00 Temperature 98.6 F 98.6 F 98.9 F Pulse Rate 100 H 94 H 94 H Respiratory 22 22 22 Rate Blood Pressure 103/52 103/50 104/52 O2 Sat by Pulse 100 100 100 Oximetry 03/03/20 03/03/20 04:13 08:54 Temperature 97.7 F Pulse Rate 95 H 93 H Respiratory 26 H Rate Blood Pressure 105/70 O2 Sat by Pulse 100 Oximetry - Lab 03/03/20 06:46 03/03/20 06:46 Most recent lab results ABG pH 7.355 pH Units (7.350-7.450) 02/19/20 05:08 ABG pCO2 27.3 mm Hg 02/19/20 05:08 ABG pO2 168.2 mm Hg (80.0-90.0) H 02/19/20 05:08 ABG HCO3 14.9 mmol/L (20.0-26.0) L 02/19/20 05:08 ABG O2 Saturation 99.0 % (95.0-99.0) 02/19/20 05:08 Calcium 7.8 mg/dL (8.4-10.2) L D 03/03/20 06:46 Phosphorus 3.70 mg/dL (2.5-4.5) D 03/03/20 06:46 Magnesium 1.60 mg/dL (1.7-2.3) L 03/03/20 06:46 Urine Creatinine 89.1 mg/dL (0.1-20.0) H 03/02/20 11:03 Urine Sodium 104 mmol/L 02/18/20 17:40 Urine Total Protein 38 mg/dL (5-11.8) H 02/18/20 17:40 Medications & Allergies - Medications Allergies/Adverse Reactions: Allergies No Known Allergies Allergy (Unverified 05/01/15 23:41) Home Medications: Home Medications Medication Instructions Recorded Confirmed Last Taken Type Acetaminophen [Acetaminophen TAB] 650 mg PO Q8H PRN 05/02/15 02/18/20 Unknown History Albuterol Sulfate [Albuterol 0.63% 0.63 mg IH Q6H PRN 05/02/15 02/18/20 Unknown History NEBS] Aspirin [Aspirin BABY CHEW TAB] 81 mg PO DAILY 05/02/15 02/18/20 05/01/15 History AtorvaSTATin [Lipitor] 20 mg PO QHS 05/02/15 02/18/20 05/01/15 History Docusate Sodium [Colace CAP] 100 mg PO BID 05/02/15 02/18/20 05/02/15 History Insulin Lispro [HumaLOG VIAL] See Protocol SUB-Q ACHS 05/02/15 02/18/20 05/01/15 History amLODIPine 5 mg PO DAILY 05/02/15 02/18/20 05/01/15 History Active Medications: Generic Name Dose Route Start Last Admin Trade Name Freq PRN Reason Stop Dose Admin Acetaminophen 650 mg 03/02/20 22:04 03/02/20 22:24 Tylenol PO 650 mg Q6H PRN Administration Non Cardiac Pain or Temp>100.5 Albuterol 2.5 mg 02/26/20 09:18 Proventil IH Q4HRT PRN Shortness Of Breath Albuterol/Ipratropium 1 ampul 02/26/20 14:00 03/03/20 09:30 Duoneb *Not For Prn Use* IH 1 ampul TIDRT LOS Administration Lipase/Protease/Amylase 1 each 02/21/20 12:12 Pancrecristiane Simon 10,500 Unit FEEDTUBE PRN PRN For Clogged Feeding Tube Aspirin 81 mg 02/18/20 10:00 03/03/20 12:24 Baby Aspirin PO 81 mg DAILY LOS Administration Atorvastatin Calcium 20 mg 02/18/20 22:00 03/02/20 21:30 Lipitor PO 20 mg QHS LOS Administration Calcitriol 1 mcg 03/02/20 12:00 03/02/20 16:19 Rocaltrol PO 1 mcg QDAY LOS Administration Calcium Carbonate/Glycine 1,250 mg 03/02/20 22:00 03/03/20 12:25 Calcium Carbonate FEEDTUBE 1,250 mg BID LOS Administration Dextrose 50 ml 02/18/20 12:55 D50w (25gm) Syringe IV Q30MIN PRN Hypoglycemia Protocol Docusate Sodium 100 mg 02/20/20 12:00 03/03/20 12:25 Colace PO 100 mg BID LOS Administration Epoetin Vadim 10,000 unit 03/02/20 12:00 03/02/20 16:33 Procrit IV 10,000 unit Fr LOS Administration Heparin Sodium (Porcine) 5,000 unit 02/24/20 22:00 03/03/20 12:25 Heparin SUB-Q 5,000 unit Q12HR LOS Administration Hydrophilic Ointment 1 applic 02/17/20 15:12 Vaseline Lip Therapy TP Q2HR PRN Dry Lips Sodium Chloride 1,000 mls @ 125 mls/hr 03/01/20 04:15 03/03/20 02:56 Nacl 0.9% 1000 Ml IV 125 mls/hr DIRECT LOS Administration Meropenem 500 mg in 50 mls @ 50 mls/hr 03/02/20 14:00 03/02/20 22:05 Merrem/Ns 500 Mg/50 Ml IV 50 mls/hr Q12HR LOS Administration Insulin Human Regular 0 unit 02/18/20 13:00 03/03/20 06:00 Humulin R SUB-Q Not Given Q6HR LOS Protocol Magnesium Hydroxide 30 ml 02/18/20 02:31 Milk Of Magnesia PO Q4H PRN Constipation Multi-Ingred Cream/Lotion/Oil/Oint 1 applic 02/17/20 15:12 02/19/20 04:25 Artificial Tears Ophth Oint OU 1 applic Q4HR PRN Administration Dry Eye(s) Simple Syrup 15 ml 02/21/20 12:12 Simple Syrup FEEDTUBE PRN PRN Hypoglycemia Simple Syrup 30 ml 02/21/20 12:12 Simple Syrup FEEDTUBE PRN PRN Hypoglycemia Sodium Bicarbonate 325 mg 02/21/20 12:12 Sodium Bicarbonate FEEDTUBE PRN PRN For Clogged Feeding Tube Sodium Chloride 10 ml 02/18/20 10:00 03/02/20 22:05 Sodium Chloride Flush Syringe 10 Ml IV 10 ml BID LOS Administration Sodium Chloride 10 ml 02/18/20 02:31 Sodium Chloride Flush Syringe 10 Ml IV PRN PRN LINE FLUSH
[2020-03-03] MEDS: MEROPENEM/NS 500 MG/50 ML 500 MG/50 ML BAG IV SCH ×2 (14:17→21:26)
[2020-03-04] MEDS: SODIUM CHLORIDE 0.9% 1000 ML 1,000 ML IV SCH ×3 (03:21→17:51)
[2020-03-04] MEDS: INSULIN REGULAR, HUMAN 100 UNIT/ML 3ML VIAL SUB-Q SCH ×4 (05:59→17:06)
--- NOTE | 2020-03-04 09:32 | Progress Note ---
Assessment and Plan 74 y/o male with known dementia, mumbles very few words at baseline if any, blank stares, admitted with altered mental status, respiratory failure, worsening renal failure and sepsis with shock no new recs for today, please see below. 1. Pulm-extubated on nasal cannula. Ordered NT suction qshift. Will continue 2. CV- stable now 3. If going to [facility]ACH, or back to SNF no objection pulmonary duong for discharge. No objection to hospice either. Subjective Date of service: 03/04/20 Principal diagnosis: Septic Shock Interval history: No acute events. Remains stable on 2 liters. Objective Vital Signs - 12hr 03/03/20 03/03/20 03/04/20 22:00 23:18 05:49 Temperature 99.2 F 97.9 F Pulse Rate 100 H 96 H Respiratory 36 H 34 H Rate Blood Pressure 102/63 114/61 O2 Sat by Pulse 100 97 Oximetry 03/04/20 06:08 Temperature Pulse Rate 102 H Respiratory Rate Blood Pressure O2 Sat by Pulse Oximetry Constitutional: alert ENT: other (orally intubated critically ill on vent) Neck: supple Effort: mildly labored Ascultation: Bilateral: clear, diminished breath sounds, rhonchi (Bilateral upper airway noises) Percussion: Bilateral: not dull Cardiovascular: other (sinus tachycardia) Neurologic: unable to assess CBC and BMP: 03/03/20 06:46 03/03/20 06:46 ABG, PT/INR, D-dimer: ABG ABG pH 7.355 pH Units (7.350-7.450) 02/19/20 05:08 ABG pCO2 27.3 mm Hg 02/19/20 05:08 ABG pO2 168.2 mm Hg (80.0-90.0) H 02/19/20 05:08 ABG O2 Saturation 99.0 % (95.0-99.0) 02/19/20 05:08 PT/INR, D-dimer PT 18.6 Sec. (12.2-14.9) H 02/19/20 03:20 INR 1.53 (0.87-1.13) H 02/19/20 03:20 D-Dimer 1327.30 ng/mlDDU (0-234) H 02/20/20 17:20 Abnormal lab findings: Abnormal Labs 02/17/20 02/17/20 02/17/20 16:28 16:28 16:28 WBC 23.5 H RBC 3.07 L Hgb 9.1 L Hct 28.4 L RDW 16.8 H Plt Count Lymph % (Auto) [place] % (Auto) Eos % (Auto) [place] # Seg Neutrophils % Seg Neuts % (Manual) 84.0 H Lymphocytes % (Manual) 8.0 L Monocytes % (Manual) 8.0 H Seg Neutrophils # Seg Neutrophils # Man 19.7 H Monocytes # (Manual) 1.9 H PT 15.3 H INR 1.19 H D-Dimer Heparin Anti-Xa Level ABG pH ABG pO2 ABG HCO3 ABG O2 Saturation ABG Base Excess ABG Hemoglobin Sodium 136 L Potassium 5.4 H Chloride Carbon Dioxide 15 L BUN 91 H Creatinine 3.7 H D Glucose 120 H POC Glucose Lactic Acid Calcium 7.9 L Phosphorus Magnesium Ferritin AST 65 H ALT 81 H Lactate Dehydrogenase Total Creatine Kinase CK-MB (CK-2) Troponin T C-Reactive Protein NT-Pro-B Natriuret Pep Total Protein 5.4 L Albumin 2.3 L Triglycerides HDL Cholesterol Urine WBC (Auto) Urine Creatinine Ur Creatinine 24 Hour Urine Chloride Urine Total Protein Crossmatch 02/17/20 02/17/20 02/17/20 16:28 16:28 16:28 WBC RBC Hgb Hct RDW Plt Count Lymph % (Auto) [place] % (Auto) Eos % (Auto) [place] # Seg Neutrophils % Seg Neuts % (Manual) Lymphocytes % (Manual) Monocytes % (Manual) Seg Neutrophils # Seg Neutrophils # Man Monocytes # (Manual) PT INR D-Dimer > 11247 H Heparin Anti-Xa Level ABG pH ABG pO2 ABG HCO3 ABG O2 Saturation ABG Base Excess ABG Hemoglobin Sodium Potassium Chloride Carbon Dioxide BUN Creatinine Glucose POC Glucose Lactic Acid 2.70 H* Calcium Phosphorus Magnesium Ferritin AST ALT Lactate Dehydrogenase Total Creatine Kinase CK-MB (CK-2) Troponin T 0.748 H* C-Reactive Protein NT-Pro-B Natriuret Pep 1980 H Total Protein Albumin Triglycerides HDL Cholesterol Urine WBC (Auto) Urine Creatinine Ur Creatinine 24 Hour Urine Chloride Urine Total Protein Crossmatch 02/17/20 02/17/20 02/17/20 16:28 16:28 18:35 WBC RBC Hgb Hct RDW Plt Count Lymph % (Auto) [place] % (Auto) Eos % (Auto) [place] # Seg Neutrophils % Seg Neuts % (Manual) Lymphocytes % (Manual) Monocytes % (Manual) Seg Neutrophils # Seg Neutrophils # Man Monocytes # (Manual) PT INR D-Dimer Heparin Anti-Xa Level ABG pH 7.303 L ABG pO2 327.3 H ABG HCO3 12.5 L ABG O2 Saturation 99.5 H ABG Base Excess -12.3 L ABG Hemoglobin 11.2 L Sodium Potassium Chloride Carbon Dioxide BUN Creatinine Glucose POC Glucose Lactic Acid Calcium Phosphorus Magnesium Ferritin 1191.0 H AST ALT Lactate Dehydrogenase 381 H Total Creatine Kinase CK-MB (CK-2) Troponin T C-Reactive Protein 18.20 H NT-Pro-B Natriuret Pep Total Protein Albumin Triglycerides HDL Cholesterol Urine WBC (Auto) Urine Creatinine Ur Creatinine 24 Hour Urine Chloride Urine Total Protein Crossmatch 02/17/20 02/18/20 02/18/20 Unknown 05:20 10:10 WBC RBC Hgb Hct RDW Plt Count Lymph % (Auto) [place] % (Auto) Eos % (Auto) [place] # Seg Neutrophils % Seg Neuts % (Manual) Lymphocytes % (Manual) Monocytes % (Manual) Seg Neutrophils # Seg Neutrophils # Man Monocytes # (Manual) PT INR D-Dimer Heparin Anti-Xa Level ABG pH 7.217 L ABG pO2 165.7 H ABG HCO3 10.5 L ABG O2 Saturation ABG Base Excess -15.7 L ABG Hemoglobin 10.3 L Sodium Potassium Chloride Carbon Dioxide BUN Creatinine Glucose POC Glucose Lactic Acid Calcium Phosphorus Magnesium Ferritin AST ALT Lactate Dehydrogenase Total Creatine Kinase 5660 H CK-MB (CK-2) 78.0 H Troponin T 1.030 H* D C-Reactive Protein NT-Pro-B Natriuret Pep Total Protein Albumin Triglycerides 164 H HDL Cholesterol 38 L Urine WBC (Auto) 17.0 H Urine Creatinine Ur Creatinine 24 Hour Urine Chloride Urine Total Protein Crossmatch 02/18/20 02/18/20 02/18/20 12:14 17:32 17:40 WBC RBC Hgb Hct RDW Plt Count Lymph % (Auto) [place] % (Auto) Eos % (Auto) [place] # Seg Neutrophils % Seg Neuts % (Manual) Lymphocytes % (Manual) Monocytes % (Manual) Seg Neutrophils # Seg Neutrophils # Man Monocytes # (Manual) PT INR D-Dimer Heparin Anti-Xa Level ABG pH ABG pO2 ABG HCO3 ABG O2 Saturation ABG Base Excess ABG Hemoglobin Sodium Potassium Chloride Carbon Dioxide BUN Creatinine Glucose POC Glucose 193 H 191 H Lactic Acid Calcium Phosphorus Magnesium Ferritin AST ALT Lactate Dehydrogenase Total Creatine Kinase CK-MB (CK-2) Troponin T C-Reactive Protein NT-Pro-B Natriuret Pep Total Protein Albumin Triglycerides HDL Cholesterol Urine WBC (Auto) Urine Creatinine 35.2 H Ur Creatinine 24 Hour Urine Chloride 81.0 L Urine Total Protein 38 H Crossmatch 02/18/20 02/19/20 02/19/20 17:40 00:04 01:50 WBC RBC Hgb Hct RDW Plt Count Lymph % (Auto) [place] % (Auto) Eos % (Auto) [place] # Seg Neutrophils % Seg Neuts % (Manual) Lymphocytes % (Manual) Monocytes % (Manual) Seg Neutrophils # Seg Neutrophils # Man Monocytes # (Manual) PT INR D-Dimer Heparin Anti-Xa Level 0.18 L ABG pH ABG pO2 ABG HCO3 ABG O2 Saturation ABG Base Excess ABG Hemoglobin Sodium Potassium Chloride 111.4 H Carbon Dioxide 11 L BUN 77 H Creatinine 2.8 H Glucose 168 H POC Glucose 145 H Lactic Acid Calcium 7.2 L Phosphorus Magnesium Ferritin AST ALT Lactate Dehydrogenase Total Creatine Kinase CK-MB (CK-2) Troponin T C-Reactive Protein NT-Pro-B Natriuret Pep Total Protein Albumin Triglycerides HDL Cholesterol Urine WBC (Auto) Urine Creatinine Ur Creatinine 24 Hour Urine Chloride Urine Total Protein Crossmatch 02/19/20 02/19/20 02/19/20 03:20 04:00 05:08 WBC 17.6 H RBC 2.76 L Hgb 8.1 L Hct 25.0 L RDW 16.6 H Plt Count Lymph % (Auto) 10.5 L [place] % (Auto) Eos % (Auto) [place] # 1.2 H Seg Neutrophils % 82.1 H Seg Neuts % (Manual) Lymphocytes % (Manual) Monocytes % (Manual) Seg Neutrophils # 14.5 H Seg Neutrophils # Man Monocytes # (Manual) PT 18.6 H INR 1.53 H D-Dimer Heparin Anti-Xa Level ABG pH ABG pO2 168.2 H ABG HCO3 14.9 L ABG O2 Saturation ABG Base Excess -9.5 L ABG Hemoglobin 8.3 L Sodium Potassium Chloride Carbon Dioxide BUN Creatinine Glucose POC Glucose Lactic Acid Calcium Phosphorus Magnesium Ferritin AST ALT Lactate Dehydrogenase Total Creatine Kinase CK-MB (CK-2) Troponin T C-Reactive Protein NT-Pro-B Natriuret Pep Total Protein Albumin Triglycerides HDL Cholesterol Urine WBC (Auto) Urine Creatinine Ur Creatinine 24 Hour Urine Chloride Urine Total Protein Crossmatch 02/19/20 02/19/20 02/19/20 05:38 05:50 09:10 WBC RBC Hgb Hct RDW Plt Count Lymph % (Auto) [place] % (Auto) Eos % (Auto) [place] # Seg Neutrophils % Seg Neuts % (Manual) Lymphocytes % (Manual) Monocytes % (Manual) Seg Neutrophils # Seg Neutrophils # Man Monocytes # (Manual) PT INR D-Dimer Heparin Anti-Xa Level ABG pH ABG pO2 ABG HCO3 ABG O2 Saturation ABG Base Excess ABG Hemoglobin Sodium Potassium Chloride 111.6 H 111.9 H Carbon Dioxide 14 L 15 L BUN 69 H 68 H Creatinine 2.6 H 2.5 H Glucose 151 H 154 H POC Glucose 143 H Lactic Acid Calcium 7.4 L 7.2 L Phosphorus Magnesium Ferritin AST ALT Lactate Dehydrogenase Total Creatine Kinase 3552 H CK-MB (CK-2) Troponin T C-Reactive Protein NT-Pro-B Natriuret Pep Total Protein Albumin Triglycerides HDL Cholesterol Urine WBC (Auto) Urine Creatinine Ur Creatinine 24 Hour Urine Chloride Urine Total Protein Crossmatch 02/19/20 02/19/20 02/19/20 11:41 12:00 17:46 WBC RBC Hgb Hct RDW Plt Count Lymph % (Auto) [place] % (Auto) Eos % (Auto) [place] # Seg Neutrophils % Seg Neuts % (Manual) Lymphocytes % (Manual) Monocytes % (Manual) Seg Neutrophils # Seg Neutrophils # Man Monocytes # (Manual) PT INR D-Dimer Heparin Anti-Xa Level 0.11 L ABG pH ABG pO2 ABG HCO3 ABG O2 Saturation ABG Base Excess ABG Hemoglobin Sodium Potassium Chloride Carbon Dioxide BUN Creatinine Glucose POC Glucose 160 H 133 H Lactic Acid Calcium Phosphorus Magnesium Ferritin AST ALT Lactate Dehydrogenase Total Creatine Kinase CK-MB (CK-2) Troponin T C-Reactive Protein NT-Pro-B Natriuret Pep Total Protein Albumin Triglycerides HDL Cholesterol Urine WBC (Auto) Urine Creatinine Ur Creatinine 24 Hour Urine Chloride Urine Total Protein Crossmatch 02/19/20 02/19/20 02/20/20 20:02 23:50 04:44 WBC RBC 2.64 L Hgb 7.9 L Hct 24.1 L RDW 16.3 H Plt Count 137 L Lymph % (Auto) [place] % (Auto) Eos % (Auto) [place] # Seg Neutrophils % Seg Neuts % (Manual) Lymphocytes % (Manual) Monocytes % (Manual) Seg Neutrophils # Seg Neutrophils # Man Monocytes # (Manual) PT INR D-Dimer Heparin Anti-Xa Level 0.12 L ABG pH ABG pO2 ABG HCO3 ABG O2 Saturation ABG Base Excess ABG Hemoglobin Sodium Potassium Chloride Carbon Dioxide BUN Creatinine Glucose POC Glucose 128 H Lactic Acid Calcium Phosphorus Magnesium Ferritin AST ALT Lactate Dehydrogenase Total Creatine Kinase CK-MB (CK-2) Troponin T C-Reactive Protein NT-Pro-B Natriuret Pep Total Protein Albumin Triglycerides HDL Cholesterol Urine WBC (Auto) Urine Creatinine Ur Creatinine 24 Hour Urine Chloride Urine Total Protein Crossmatch 02/20/20 02/20/20 02/20/20 04:44 04:44 10:00 WBC RBC Hgb Hct RDW Plt Count Lymph % (Auto) [place] % (Auto) Eos % (Auto) [place] # Seg Neutrophils % Seg Neuts % (Manual) Lymphocytes % (Manual) Monocytes % (Manual) Seg Neutrophils # Seg Neutrophils # Man Monocytes # (Manual) PT INR D-Dimer Heparin Anti-Xa Level 0.15 L < 0.10 L ABG pH ABG pO2 ABG HCO3 ABG O2 Saturation ABG Base Excess ABG Hemoglobin Sodium Potassium Chloride 110.4 H Carbon Dioxide 19 L BUN 61 H Creatinine 2.4 H Glucose POC Glucose Lactic Acid Calcium 7.3 L Phosphorus Magnesium Ferritin AST ALT Lactate Dehydrogenase Total Creatine Kinase 2238 H CK-MB (CK-2) Troponin T C-Reactive Protein NT-Pro-B Natriuret Pep Total Protein Albumin Triglycerides HDL Cholesterol Urine WBC (Auto) Urine Creatinine Ur Creatinine 24 Hour Urine Chloride Urine Total Protein Crossmatch 02/20/20 02/20/20 02/20/20 12:58 17:20 17:20 WBC RBC Hgb Hct RDW Plt Count Lymph % (Auto) [place] % (Auto) Eos % (Auto) [place] # Seg Neutrophils % Seg Neuts % (Manual) Lymphocytes % (Manual) Monocytes % (Manual) Seg Neutrophils # Seg Neutrophils # Man Monocytes # (Manual) PT INR D-Dimer 1327.30 H Heparin Anti-Xa Level 0.17 L ABG pH ABG pO2 ABG HCO3 ABG O2 Saturation ABG Base Excess ABG Hemoglobin Sodium Potassium Chloride Carbon Dioxide BUN Creatinine Glucose POC Glucose 123 H Lactic Acid Calcium Phosphorus Magnesium Ferritin AST ALT Lactate Dehydrogenase Total Creatine Kinase CK-MB (CK-2) Troponin T C-Reactive Protein NT-Pro-B Natriuret Pep Total Protein Albumin Triglycerides HDL Cholesterol Urine WBC (Auto) Urine Creatinine Ur Creatinine 24 Hour Urine Chloride Urine Total Protein Crossmatch 02/20/20 02/20/20 02/20/20 17:20 18:11 23:52 WBC RBC Hgb Hct RDW Plt Count Lymph % (Auto) [place] % (Auto) Eos % (Auto) [place] # Seg Neutrophils % Seg Neuts % (Manual) Lymphocytes % (Manual) Monocytes % (Manual) Seg Neutrophils # Seg Neutrophils # Man Monocytes # (Manual) PT INR D-Dimer Heparin Anti-Xa Level ABG pH ABG pO2 ABG HCO3 ABG O2 Saturation ABG Base Excess ABG Hemoglobin Sodium Potassium Chloride Carbon Dioxide BUN Creatinine Glucose POC Glucose 156 H 153 H Lactic Acid Calcium Phosphorus Magnesium Ferritin AST ALT Lactate Dehydrogenase Total Creatine Kinase CK-MB (CK-2) Troponin T 0.573 H* D C-Reactive Protein NT-Pro-B Natriuret Pep Total Protein Albumin Triglycerides HDL Cholesterol Urine WBC (Auto) Urine Creatinine Ur Creatinine 24 Hour Urine Chloride Urine Total Protein Crossmatch 02/21/20 02/21/20 02/21/20 04:39 04:39 05:12 WBC RBC 2.35 L Hgb 6.9 L Hct 21.1 L RDW 16.2 H Plt Count 126 L Lymph % (Auto) [place] % (Auto) Eos % (Auto) [place] # Seg Neutrophils % Seg Neuts % (Manual) Lymphocytes % (Manual) Monocytes % (Manual) Seg Neutrophils # Seg Neutrophils # Man Monocytes # (Manual) PT INR D-Dimer Heparin Anti-Xa Level ABG pH ABG pO2 ABG HCO3 ABG O2 Saturation ABG Base Excess ABG Hemoglobin Sodium Potassium Chloride Carbon Dioxide BUN 54 H Creatinine 2.2 H Glucose 120 H POC Glucose 139 H Lactic Acid Calcium 6.8 L Phosphorus Magnesium Ferritin AST ALT Lactate Dehydrogenase Total Creatine Kinase 1488 H CK-MB (CK-2) Troponin T C-Reactive Protein NT-Pro-B Natriuret Pep Total Protein Albumin Triglycerides HDL Cholesterol Urine WBC (Auto) Urine Creatinine Ur Creatinine 24 Hour Urine Chloride Urine Total Protein Crossmatch 02/21/20 02/21/20 02/21/20 10:47 13:24 15:41 WBC RBC Hgb Hct RDW Plt Count Lymph % (Auto) [place] % (Auto) Eos % (Auto) [place] # Seg Neutrophils % Seg Neuts % (Manual) Lymphocytes % (Manual) Monocytes % (Manual) Seg Neutrophils # Seg Neutrophils # Man Monocytes # (Manual) PT INR D-Dimer Heparin Anti-Xa Level < 0.10 L ABG pH ABG pO2 ABG HCO3 ABG O2 Saturation ABG Base Excess ABG Hemoglobin Sodium Potassium Chloride Carbon Dioxide BUN Creatinine Glucose POC Glucose 107 H Lactic Acid Calcium Phosphorus Magnesium Ferritin AST ALT Lactate Dehydrogenase Total Creatine Kinase CK-MB (CK-2) Troponin T C-Reactive Protein NT-Pro-B Natriuret Pep Total Protein Albumin Triglycerides HDL Cholesterol Urine WBC (Auto) Urine Creatinine Ur Creatinine 24 Hour Urine Chloride Urine Total Protein Crossmatch See Detail 02/22/20 02/22/20 02/22/20 05:13 05:13 12:24 WBC RBC 3.18 L Hgb 9.5 L Hct 27.6 L D RDW 15.9 H Plt Count 114 L Lymph % (Auto) [place] % (Auto) Eos % (Auto) [place] # Seg Neutrophils % Seg Neuts % (Manual) Lymphocytes % (Manual) Monocytes % (Manual) Seg Neutrophils # Seg Neutrophils # Man Monocytes # (Manual) PT INR D-Dimer Heparin Anti-Xa Level ABG pH ABG pO2 ABG HCO3 ABG O2 Saturation ABG Base Excess ABG Hemoglobin Sodium Potassium Chloride Carbon Dioxide BUN 52 H Creatinine 2.3 H Glucose 103 H POC Glucose 122 H Lactic Acid Calcium 6.7 L Phosphorus Magnesium Ferritin AST ALT Lactate Dehydrogenase Total Creatine Kinase 865 H CK-MB (CK-2) Troponin T C-Reactive Protein NT-Pro-B Natriuret Pep Total Protein Albumin Triglycerides HDL Cholesterol Urine WBC (Auto) Urine Creatinine Ur Creatinine 24 Hour Urine Chloride Urine Total Protein Crossmatch 02/22/20 02/23/20 02/23/20 17:17 05:27 05:36 WBC RBC 3.15 L Hgb 9.4 L Hct 27.6 L RDW 15.9 H Plt Count 97 L Lymph % (Auto) [place] % (Auto) Eos % (Auto) [place] # Seg Neutrophils % Seg Neuts % (Manual) Lymphocytes % (Manual) Monocytes % (Manual) Seg Neutrophils # Seg Neutrophils # Man Monocytes # (Manual) PT INR D-Dimer Heparin Anti-Xa Level ABG pH ABG pO2 ABG HCO3 ABG O2 Saturation ABG Base Excess ABG Hemoglobin Sodium Potassium Chloride Carbon Dioxide BUN Creatinine Glucose POC Glucose 165 H 120 H Lactic Acid Calcium Phosphorus Magnesium Ferritin AST ALT Lactate Dehydrogenase Total Creatine Kinase CK-MB (CK-2) Troponin T C-Reactive Protein NT-Pro-B Natriuret Pep Total Protein Albumin Triglycerides HDL Cholesterol Urine WBC (Auto) Urine Creatinine Ur Creatinine 24 Hour Urine Chloride Urine Total Protein Crossmatch 02/23/20 02/23/20 02/23/20 05:36 05:36 11:57 WBC RBC Hgb Hct RDW Plt Count Lymph % (Auto) [place] % (Auto) Eos % (Auto) [place] # Seg Neutrophils % Seg Neuts % (Manual) Lymphocytes % (Manual) Monocytes % (Manual) Seg Neutrophils # Seg Neutrophils # Man Monocytes # (Manual) PT INR D-Dimer Heparin Anti-Xa Level ABG pH ABG pO2 ABG HCO3 ABG O2 Saturation ABG Base Excess ABG Hemoglobin Sodium Potassium 3.0 L D Chloride Carbon Dioxide BUN 53 H Creatinine 2.3 H Glucose 115 H POC Glucose 162 H Lactic Acid Calcium 7.0 L Phosphorus Magnesium 1.20 L Ferritin AST ALT Lactate Dehydrogenase Total Creatine Kinase 476 H CK-MB (CK-2) Troponin T C-Reactive Protein NT-Pro-B Natriuret Pep Total Protein Albumin Triglycerides HDL Cholesterol Urine WBC (Auto) Urine Creatinine Ur Creatinine 24 Hour Urine Chloride Urine Total Protein Crossmatch 02/24/20 02/24/20 02/24/20 05:33 05:55 05:55 WBC RBC 3.17 L Hgb 9.4 L Hct 28.2 L RDW 16.1 H Plt Count 96 L Lymph % (Auto) [place] % (Auto) Eos % (Auto) [place] # Seg Neutrophils % Seg Neuts % (Manual) Lymphocytes % (Manual) Monocytes % (Manual) Seg Neutrophils # Seg Neutrophils # Man Monocytes # (Manual) PT INR D-Dimer Heparin Anti-Xa Level ABG pH ABG pO2 ABG HCO3 ABG O2 Saturation ABG Base Excess ABG Hemoglobin Sodium 146 H Potassium Chloride 110.0 H Carbon Dioxide BUN 69 H Creatinine 2.6 H Glucose 119 H POC Glucose 156 H Lactic Acid Calcium 7.2 L Phosphorus Magnesium Ferritin AST ALT Lactate Dehydrogenase Total Creatine Kinase 362 H CK-MB (CK-2) Troponin T C-Reactive Protein NT-Pro-B Natriuret Pep Total Protein Albumin Triglycerides HDL Cholesterol Urine WBC (Auto) Urine Creatinine Ur Creatinine 24 Hour Urine Chloride Urine Total Protein Crossmatch 02/24/20 02/24/20 02/24/20 11:51 18:35 23:41 WBC RBC Hgb Hct RDW Plt Count Lymph % (Auto) [place] % (Auto) Eos % (Auto) [place] # Seg Neutrophils % Seg Neuts % (Manual) Lymphocytes % (Manual) Monocytes % (Manual) Seg Neutrophils # Seg Neutrophils # Man Monocytes # (Manual) PT INR D-Dimer Heparin Anti-Xa Level ABG pH ABG pO2 ABG HCO3 ABG O2 Saturation ABG Base Excess ABG Hemoglobin Sodium Potassium Chloride Carbon Dioxide BUN Creatinine Glucose POC Glucose 155 H 134 H 148 H Lactic Acid Calcium Phosphorus Magnesium Ferritin AST ALT Lactate Dehydrogenase Total Creatine Kinase CK-MB (CK-2) Troponin T C-Reactive Protein NT-Pro-B Natriuret Pep Total Protein Albumin Triglycerides HDL Cholesterol Urine WBC (Auto) Urine Creatinine Ur Creatinine 24 Hour Urine Chloride Urine Total Protein Crossmatch 02/25/20 02/25/20 02/25/20 05:11 10:39 11:40 WBC RBC Hgb 8.6 L Hct 25.6 L RDW Plt Count 79 L Lymph % (Auto) [place] % (Auto) Eos % (Auto) [place] # Seg Neutrophils % Seg Neuts % (Manual) Lymphocytes % (Manual) Monocytes % (Manual) Seg Neutrophils # Seg Neutrophils # Man Monocytes # (Manual) PT INR D-Dimer Heparin Anti-Xa Level ABG pH ABG pO2 ABG HCO3 ABG O2 Saturation ABG Base Excess ABG Hemoglobin Sodium Potassium Chloride 108.6 H Carbon Dioxide BUN 77 H Creatinine 2.9 H Glucose 121 H POC Glucose 119 H Lactic Acid Calcium 7.5 L Phosphorus Magnesium Ferritin AST ALT Lactate Dehydrogenase Total Creatine Kinase CK-MB (CK-2) Troponin T C-Reactive Protein NT-Pro-B Natriuret Pep Total Protein Albumin Triglycerides HDL Cholesterol Urine WBC (Auto) Urine Creatinine Ur Creatinine 24 Hour Urine Chloride Urine Total Protein Crossmatch 02/25/20 02/25/20 02/25/20 15:24 17:21 23:18 WBC RBC Hgb Hct RDW Plt Count Lymph % (Auto) [place] % (Auto) Eos % (Auto) [place] # Seg Neutrophils % Seg Neuts % (Manual) Lymphocytes % (Manual) Monocytes % (Manual) Seg Neutrophils # Seg Neutrophils # Man Monocytes # (Manual) PT INR D-Dimer Heparin Anti-Xa Level ABG pH ABG pO2 ABG HCO3 ABG O2 Saturation ABG Base Excess ABG Hemoglobin Sodium Potassium Chloride Carbon Dioxide BUN Creatinine Glucose POC Glucose 138 H 139 H 109 H Lactic Acid Calcium Phosphorus Magnesium Ferritin AST ALT Lactate Dehydrogenase Total Creatine Kinase CK-MB (CK-2) Troponin T C-Reactive Protein NT-Pro-B Natriuret Pep Total Protein Albumin Triglycerides HDL Cholesterol Urine WBC (Auto) Urine Creatinine Ur Creatinine 24 Hour Urine Chloride Urine Total Protein Crossmatch 02/26/20 02/26/20 02/26/20 05:55 12:12 13:02 WBC RBC Hgb Hct RDW Plt Count Lymph % (Auto) [place] % (Auto) Eos % (Auto) [place] # Seg Neutrophils % Seg Neuts % (Manual) Lymphocytes % (Manual) Monocytes % (Manual) Seg Neutrophils # Seg Neutrophils # Man Monocytes # (Manual) PT INR D-Dimer Heparin Anti-Xa Level ABG pH ABG pO2 ABG HCO3 ABG O2 Saturation ABG Base Excess ABG Hemoglobin Sodium 146 H Potassium Chloride 112.7 H Carbon Dioxide 20 L BUN 81 H Creatinine 3.0 H Glucose 123 H POC Glucose 111 H 128 H Lactic Acid Calcium 7.9 L Phosphorus Magnesium Ferritin AST ALT Lactate Dehydrogenase Total Creatine Kinase CK-MB (CK-2) Troponin T C-Reactive Protein NT-Pro-B Natriuret Pep Total Protein Albumin Triglycerides HDL Cholesterol Urine WBC (Auto) Urine Creatinine Ur Creatinine 24 Hour Urine Chloride Urine Total Protein Crossmatch 02/26/20 02/26/20 02/27/20 17:57 23:16 06:05 WBC RBC 2.84 L Hgb 8.5 L Hct 25.0 L RDW 15.8 H Plt Count 65 L Lymph % (Auto) [place] % (Auto) 12.1 H Eos % (Auto) 5.1 H [place] # Seg Neutrophils % Seg Neuts % (Manual) Lymphocytes % (Manual) Monocytes % (Manual) Seg Neutrophils # Seg Neutrophils # Man Monocytes # (Manual) PT INR D-Dimer Heparin Anti-Xa Level ABG pH ABG pO2 ABG HCO3 ABG O2 Saturation ABG Base Excess ABG Hemoglobin Sodium Potassium Chloride Carbon Dioxide BUN Creatinine Glucose POC Glucose 156 H 168 H Lactic Acid Calcium Phosphorus Magnesium Ferritin AST ALT Lactate Dehydrogenase Total Creatine Kinase CK-MB (CK-2) Troponin T C-Reactive Protein NT-Pro-B Natriuret Pep Total Protein Albumin Triglycerides HDL Cholesterol Urine WBC (Auto) Urine Creatinine Ur Creatinine 24 Hour Urine Chloride Urine Total Protein Crossmatch 02/27/20 02/27/20 02/27/20 06:05 11:44 19:00 WBC RBC Hgb Hct RDW Plt Count Lymph % (Auto) [place] % (Auto) Eos % (Auto) [place] # Seg Neutrophils % Seg Neuts % (Manual) Lymphocytes % (Manual) Monocytes % (Manual) Seg Neutrophils # Seg Neutrophils # Man Monocytes # (Manual) PT INR D-Dimer Heparin Anti-Xa Level ABG pH ABG pO2 ABG HCO3 ABG O2 Saturation ABG Base Excess ABG Hemoglobin Sodium 146 H Potassium Chloride 110.2 H Carbon Dioxide BUN 80 H Creatinine 3.3 H Glucose POC Glucose 116 H 134 H Lactic Acid Calcium 7.8 L Phosphorus Magnesium Ferritin AST ALT Lactate Dehydrogenase Total Creatine Kinase CK-MB (CK-2) Troponin T C-Reactive Protein NT-Pro-B Natriuret Pep Total Protein Albumin Triglycerides HDL Cholesterol Urine WBC (Auto) Urine Creatinine Ur Creatinine 24 Hour Urine Chloride Urine Total Protein Crossmatch 02/27/20 02/28/20 02/28/20 23:52 04:52 04:52 WBC RBC 2.73 L Hgb 8.1 L Hct 23.9 L RDW 15.9 H Plt Count 74 L Lymph % (Auto) [place] % (Auto) 14.1 H Eos % (Auto) [place] # 1.0 H Seg Neutrophils % Seg Neuts % (Manual) Lymphocytes % (Manual) Monocytes % (Manual) Seg Neutrophils # Seg Neutrophils # Man Monocytes # (Manual) PT INR D-Dimer Heparin Anti-Xa Level ABG pH ABG pO2 ABG HCO3 ABG O2 Saturation ABG Base Excess ABG Hemoglobin Sodium Potassium Chloride 107.5 H Carbon Dioxide BUN 81 H Creatinine 3.0 H Glucose 128 H POC Glucose 117 H Lactic Acid Calcium 7.7 L Phosphorus Magnesium Ferritin AST ALT Lactate Dehydrogenase Total Creatine Kinase CK-MB (CK-2) Troponin T C-Reactive Protein NT-Pro-B Natriuret Pep Total Protein Albumin Triglycerides HDL Cholesterol Urine WBC (Auto) Urine Creatinine Ur Creatinine 24 Hour Urine Chloride Urine Total Protein Crossmatch 02/28/20 02/28/20 02/28/20 05:52 12:19 16:24 WBC RBC Hgb Hct RDW Plt Count Lymph % (Auto) [place] % (Auto) Eos % (Auto) [place] # Seg Neutrophils % Seg Neuts % (Manual) Lymphocytes % (Manual) Monocytes % (Manual) Seg Neutrophils # Seg Neutrophils # Man Monocytes # (Manual) PT INR D-Dimer Heparin Anti-Xa Level ABG pH ABG pO2 ABG HCO3 ABG O2 Saturation ABG Base Excess ABG Hemoglobin Sodium Potassium Chloride Carbon Dioxide BUN Creatinine Glucose POC Glucose 148 H 152 H 118 H Lactic Acid Calcium Phosphorus Magnesium Ferritin AST ALT Lactate Dehydrogenase Total Creatine Kinase CK-MB (CK-2) Troponin T C-Reactive Protein NT-Pro-B Natriuret Pep Total Protein Albumin Triglycerides HDL Cholesterol Urine WBC (Auto) Urine Creatinine Ur Creatinine 24 Hour Urine Chloride Urine Total Protein Crossmatch 02/29/20 02/29/20 02/29/20 00:12 05:21 06:00 WBC RBC 2.73 L Hgb 8.2 L Hct 24.0 L RDW 16.4 H Plt Count 88 L Lymph % (Auto) Beck[place] % (Auto) 13.9 H Eos % (Auto) Beckham # 1.2 H Seg Neutrophils % Seg Neuts % (Manual) Lymphocytes % (Manual) Monocytes % (Manual) Seg Neutrophils # Seg Neutrophils # Man Monocytes # (Manual) PT INR D-Dimer Heparin Anti-Xa Level ABG pH ABG pO2 ABG HCO3 ABG O2 Saturation ABG Base Excess ABG Hemoglobin Sodium Potassium Chloride Carbon Dioxide BUN Creatinine Glucose POC Glucose 144 H 184 H Lactic Acid Calcium Phosphorus Magnesium Ferritin AST ALT Lactate Dehydrogenase Total Creatine Kinase CK-MB (CK-2) Troponin T C-Reactive Protein NT-Pro-B Natriuret Pep Total Protein Albumin Triglycerides HDL Cholesterol Urine WBC (Auto) Urine Creatinine Ur Creatinine 24 Hour Urine Chloride Urine Total Protein Crossmatch 02/29/20 02/29/20 02/29/20 06:00 12:19 16:13 WBC RBC Hgb Hct RDW Plt Count Lymph % (Auto) Beckham % (Auto) Eos % (Auto) [place] # Seg Neutrophils % Seg Neuts % (Manual) Lymphocytes % (Manual) Monocytes % (Manual) Seg Neutrophils # Seg Neutrophils # Man Monocytes # (Manual) PT INR D-Dimer Heparin Anti-Xa Level ABG pH ABG pO2 ABG HCO3 ABG O2 Saturation ABG Base Excess ABG Hemoglobin Sodium Potassium Chloride Carbon Dioxide BUN 89 H Creatinine 3.4 H Glucose 147 H POC Glucose 167 H 175 H Lactic Acid Calcium 7.7 L Phosphorus Magnesium Ferritin AST ALT Lactate Dehydrogenase Total Creatine Kinase CK-MB (CK-2) Troponin T C-Reactive Protein NT-Pro-B Natriuret Pep Total Protein Albumin Triglycerides HDL Cholesterol Urine WBC (Auto) Urine Creatinine Ur Creatinine 24 Hour Urine Chloride Urine Total Protein Crossmatch 03/01/20 03/01/20 03/01/20 00:00 05:04 05:04 WBC RBC 2.58 L Hgb 7.6 L Hct 23.1 L RDW 15.9 H Plt Count 121 L Lymph % (Auto) Beck[place] % (Auto) 13.7 H Eos % (Auto) [place] # 1.3 H Seg Neutrophils % Seg Neuts % (Manual) Lymphocytes % (Manual) Monocytes % (Manual) Seg Neutrophils # Seg Neutrophils # Man Monocytes # (Manual) PT INR D-Dimer Heparin Anti-Xa Level ABG pH ABG pO2 ABG HCO3 ABG O2 Saturation ABG Base Excess ABG Hemoglobin Sodium Potassium Chloride 108.5 H Carbon Dioxide BUN 99 H Creatinine 3.9 H Glucose 117 H POC Glucose 159 H Lactic Acid Calcium 7.9 L Phosphorus Magnesium Ferritin AST ALT Lactate Dehydrogenase Total Creatine Kinase CK-MB (CK-2) Troponin T C-Reactive Protein NT-Pro-B Natriuret Pep Total Protein Albumin Triglycerides HDL Cholesterol Urine WBC (Auto) Urine Creatinine Ur Creatinine 24 Hour Urine Chloride Urine Total Protein Crossmatch 03/01/20 03/01/20 03/01/20 05:34 12:27 17:36 WBC RBC Hgb Hct RDW Plt Count Lymph % (Auto) Beck[place] % (Auto) Eos % (Auto) [place] # Seg Neutrophils % Seg Neuts % (Manual) Lymphocytes % (Manual) Monocytes % (Manual) Seg Neutrophils # Seg Neutrophils # Man Monocytes # (Manual) PT INR D-Dimer Heparin Anti-Xa Level ABG pH ABG pO2 ABG HCO3 ABG O2 Saturation ABG Base Excess ABG Hemoglobin Sodium Potassium Chloride Carbon Dioxide BUN Creatinine Glucose POC Glucose 153 H 135 H 139 H Lactic Acid Calcium Phosphorus Magnesium Ferritin AST ALT Lactate Dehydrogenase Total Creatine Kinase CK-MB (CK-2) Troponin T C-Reactive Protein NT-Pro-B Natriuret Pep Total Protein Albumin Triglycerides HDL Cholesterol Urine WBC (Auto) Urine Creatinine Ur Creatinine 24 Hour Urine Chloride Urine Total Protein Crossmatch 0903/02/20 03/02/20 21:05 07:00 08:24 WBC RBC Hgb Hct RDW Plt Count Lymph % (Auto) Beck[place] % (Auto) Eos % (Auto) [place] # Seg Neutrophils % Seg Neuts % (Manual) Lymphocytes % (Manual) Monocytes % (Manual) Seg Neutrophils # Seg Neutrophils # Man Monocytes # (Manual) PT INR D-Dimer Heparin Anti-Xa Level ABG pH ABG pO2 ABG HCO3 ABG O2 Saturation ABG Base Excess ABG Hemoglobin Sodium Potassium Chloride Carbon Dioxide BUN Creatinine Glucose POC Glucose 133 H 147 H 141 H Lactic Acid Calcium Phosphorus Magnesium Ferritin AST ALT Lactate Dehydrogenase Total Creatine Kinase CK-MB (CK-2) Troponin T C-Reactive Protein NT-Pro-B Natriuret Pep Total Protein Albumin Triglycerides HDL Cholesterol Urine WBC (Auto) Urine Creatinine Ur Creatinine 24 Hour Urine Chloride Urine Total Protein Crossmatch 03/02/20 03/02/20 03/02/20 08:41 08:41 11:03 WBC RBC 1.78 L Hgb 5.4 L* Hct 16.0 L* D RDW 16.5 H Plt Count 130 L Lymph % (Auto) Beck[place] % (Auto) 11.8 H Eos % (Auto) [place] # 1.0 H Seg Neutrophils % Seg Neuts % (Manual) Lymphocytes % (Manual) Monocytes % (Manual) Seg Neutrophils # Seg Neutrophils # Man Monocytes # (Manual) PT INR D-Dimer Heparin Anti-Xa Level ABG pH ABG pO2 ABG HCO3 ABG O2 Saturation ABG Base Excess ABG Hemoglobin Sodium 146 H Potassium 3.0 L D Chloride 118.9 H Carbon Dioxide 17 L D BUN 80 H Creatinine 3.4 H Glucose 103 H POC Glucose Lactic Acid Calcium 5.8 L* D Phosphorus 1.20 L Magnesium Ferritin AST ALT Lactate Dehydrogenase Total Creatine Kinase CK-MB (CK-2) Troponin T C-Reactive Protein NT-Pro-B Natriuret Pep Total Protein Albumin Triglycerides HDL Cholesterol Urine WBC (Auto) Urine Creatinine 89.1 H Ur Creatinine 24 Hour 0.2 L Urine Chloride Urine Total Protein Crossmatch 03/02/20 03/02/20 03/02/20 11:43 14:30 16:32 WBC RBC Hgb Hct RDW Plt Count Lymph % (Auto) [place] % (Auto) Eos % (Auto) [place] # Seg Neutrophils % Seg Neuts % (Manual) Lymphocytes % (Manual) Monocytes % (Manual) Seg Neutrophils # Seg Neutrophils # Man Monocytes # (Manual) PT INR D-Dimer Heparin Anti-Xa Level ABG pH ABG pO2 ABG HCO3 ABG O2 Saturation ABG Base Excess ABG Hemoglobin Sodium Potassium Chloride Carbon Dioxide BUN Creatinine Glucose POC Glucose 141 H 139 H Lactic Acid Calcium Phosphorus Magnesium Ferritin AST ALT Lactate Dehydrogenase Total Creatine Kinase CK-MB (CK-2) Troponin T C-Reactive Protein NT-Pro-B Natriuret Pep Total Protein Albumin Triglycerides HDL Cholesterol Urine WBC (Auto) Urine Creatinine Ur Creatinine 24 Hour Urine Chloride Urine Total Protein Crossmatch See Detail 03/02/20 03/03/20 03/03/20 23:39 05:59 06:46 WBC 11.3 H RBC 3.10 L Hgb 9.1 L D Hct 26.9 L D RDW 16.7 H Plt Count Lymph % (Auto) [place] % (Auto) 10.2 H Eos % (Auto) [place] # 1.2 H Seg Neutrophils % 70.7 H Seg Neuts % (Manual) Lymphocytes % (Manual) Monocytes % (Manual) Seg Neutrophils # 8.0 H Seg Neutrophils # Man Monocytes # (Manual) PT INR D-Dimer Heparin Anti-Xa Level ABG pH ABG pO2 ABG HCO3 ABG O2 Saturation ABG Base Excess ABG Hemoglobin Sodium Potassium Chloride Carbon Dioxide BUN Creatinine Glucose POC Glucose 110 H 117 H Lactic Acid Calcium Phosphorus Magnesium Ferritin AST ALT Lactate Dehydrogenase Total Creatine Kinase CK-MB (CK-2) Troponin T C-Reactive Protein NT-Pro-B Natriuret Pep Total Protein Albumin Triglycerides HDL Cholesterol Urine WBC (Auto) Urine Creatinine Ur Creatinine 24 Hour Urine Chloride Urine Total Protein Crossmatch 03/03/20 03/03/20 03/03/20 06:46 06:46 12:21 WBC RBC Hgb Hct RDW Plt Count Lymph % (Auto) [place] % (Auto) Eos % (Auto) [place] # Seg Neutrophils % Seg Neuts % (Manual) Lymphocytes % (Manual) Monocytes % (Manual) Seg Neutrophils # Seg Neutrophils # Man Monocytes # (Manual) PT INR D-Dimer Heparin Anti-Xa Level ABG pH ABG pO2 ABG HCO3 ABG O2 Saturation ABG Base Excess ABG Hemoglobin Sodium Potassium Chloride 107.9 H Carbon Dioxide 19 L BUN 103 H Creatinine 4.7 H Glucose 106 H POC Glucose 114 H Lactic Acid Calcium 7.8 L D Phosphorus Magnesium 1.60 L Ferritin AST ALT Lactate Dehydrogenase Total Creatine Kinase CK-MB (CK-2) Troponin T C-Reactive Protein NT-Pro-B Natriuret Pep Total Protein Albumin Triglycerides HDL Cholesterol Urine WBC (Auto) Urine Creatinine Ur Creatinine 24 Hour Urine Chloride Urine Total Protein Crossmatch
[2020-03-04] MEDS: CALCITRIOL 0.5 MCG CAP PO SCH (10:04)
[2020-03-04] MEDS: CALCIUM CARBONATE 1250 MG/5 ML ORAL LIQD FEEDTUBE SCH ×2 (10:04→22:13)
[2020-03-04] MEDS: DOCUSATE SODIUM 100 MG/10 ML ORAL LIQD PO SCH ×2 (10:05→22:13)
[2020-03-04] MEDS: ASPIRIN 81 MG TAB CHEW PO SCH (10:06)
[2020-03-04] MEDS: MEROPENEM/NS 500 MG/50 ML 500 MG/50 ML BAG IV SCH ×2 (10:06→22:12)
[2020-03-04] MEDS: HEPARIN 5,000 UNIT/1 ML VIAL SUB-Q SCH ×2 (10:07→22:13)
[2020-03-04] MEDS: IPRATROPIUM/ALBUTEROL SULFATE 3 ML AMPUL.NEB IH SCH ×3 (10:19→20:15)
[2020-03-04 11:54] LABS: Basophils # (Auto) 0.1 K/mm3 (0.0-0.1); Basophils % (Auto) 0.5 % (0.0-1.8); Eosinophils # (Auto) 0.2 K/mm3 (0.0-0.4); Eosinophils % (Auto) 1.4 % (0.0-4.3); Hemoglobin 8.5 gm/dl (11.8-15.2); Lymphocytes # (Auto) 2.1 K/mm3 (1.2-5.4); Lymphocytes % (Auto) 16.9 % (13.4-35.0); Mean Corpuscular HGB Conc 33 % (32-34); Mean Corpuscular Volume 88 fl (84-94); Monocytes # (Auto) 1.2 K/mm3 (0.0-0.8); Monocytes % (Auto) 9.7 % (0.0-7.3); Platelet Count 323 K/mm3 (140-440); Red Blood Count 2.94 M/mm3 (3.65-5.03)
[2020-03-04 12:11] LABS: Calcium 8.1 mg/dL (8.4-10.2)
--- NOTE | 2020-03-04 13:16 | Progress Note ---
Assessment and Plan Acute hypoxic respiratory failure Septic Shock 2/2 PNA Bilateral PNA Acute Kidney Injury 2/2 ischemic ATN from septic shock, Rhabdo, on underlying CKD, no obstruction Elevated D-Dimers Plan: - Renal function reviewed, SCr level was 5.2 today, yesterday's SCr level was 4.7 - Review of labs in 2014 in [facility] did show SCr level between 1.6-1.8, most recent SCr level in [facility] prior to this admission was 2.2 on 02/14/20 - Serum Na level was 141 today - Will follow up family decisions about plan of care, LTACH vs SNF vs other - S/p Bicarb drip - CK level was elevated so could have AMMY from contribution from Rhabdo as well - No hydronephrosis noted on Renal US - Urine eosinophils negative, calculated protein to cr ratio 1 g, monitor - ID on board, f/u recs - Yin Catheter: Yes - Renal plan d/w Dr Sosa Subjective Date of service: 03/04/20 Principal diagnosis: Septic Shock Interval history: Pt on isolation Objective - Vital Signs Vital signs: Vital Signs - 12hr 03/04/20 03/04/20 03/04/20 05:49 06:08 08:52 Temperature 97.9 F 97.5 F L Pulse Rate 102 H 77 Pulse Rate [ Anterior Bilateral Throughout] Pulse Rate [ Left Dorsalis Pedis] Pulse Rate [ Left Radial] Pulse Rate [ Right Dorsalis Pedis] Respiratory 34 H 18 Rate Respiratory Rate [Anterior Bilateral Throughout] Blood Pressure 114/61 140/20 O2 Sat by Pulse 97 94 Oximetry 03/04/20 03/04/20 03/04/20 10:00 10:03 10:19 Temperature Pulse Rate 94 H Pulse Rate [ 101 H Anterior Bilateral Throughout] Pulse Rate [ 102 H Left Dorsalis Pedis] Pulse Rate [ 102 H Left Radial] Pulse Rate [ 102 H Right Dorsalis Pedis] Respiratory 26 H Rate Respiratory 20 Rate [Anterior Bilateral Throughout] Blood Pressure 103/61 O2 Sat by Pulse Oximetry 03/04/20 10:34 Temperature Pulse Rate Pulse Rate [ Anterior Bilateral Throughout] Pulse Rate [ Left Dorsalis Pedis] Pulse Rate [ Left Radial] Pulse Rate [ Right Dorsalis Pedis] Respiratory Rate Respiratory Rate [Anterior Bilateral Throughout] Blood Pressure O2 Sat by Pulse 98 Oximetry - Lab 03/04/20 11:33 03/04/20 11:33 Most recent lab results ABG pH 7.355 pH Units (7.350-7.450) 02/19/20 05:08 ABG pCO2 27.3 mm Hg 02/19/20 05:08 ABG pO2 168.2 mm Hg (80.0-90.0) H 02/19/20 05:08 ABG HCO3 14.9 mmol/L (20.0-26.0) L 02/19/20 05:08 ABG O2 Saturation 99.0 % (95.0-99.0) 02/19/20 05:08 Calcium 8.1 mg/dL (8.4-10.2) L 03/04/20 11:33 Phosphorus 3.50 mg/dL (2.5-4.5) 03/04/20 11:33 Magnesium 1.90 mg/dL (1.7-2.3) 03/04/20 11:33 Urine Creatinine 89.1 mg/dL (0.1-20.0) H 03/02/20 11:03 Urine Sodium 104 mmol/L 02/18/20 17:40 Urine Total Protein 38 mg/dL (5-11.8) H 02/18/20 17:40 Medications & Allergies - Medications Allergies/Adverse Reactions: Allergies No Known Allergies Allergy (Unverified 05/01/15 23:41) Home Medications: Home Medications Medication Instructions Recorded Confirmed Last Taken Type Acetaminophen [Acetaminophen TAB] 650 mg PO Q8H PRN 05/02/15 02/18/20 Unknown History Albuterol Sulfate [Albuterol 0.63% 0.63 mg IH Q6H PRN 05/02/15 02/18/20 Unknown History NEBS] Aspirin [Aspirin BABY CHEW TAB] 81 mg PO DAILY 05/02/15 02/18/20 05/01/15 History AtorvaSTATin [Lipitor] 20 mg PO QHS 05/02/15 02/18/20 05/01/15 History Docusate Sodium [Colace CAP] 100 mg PO BID 05/02/15 02/18/20 05/02/15 History Insulin Lispro [HumaLOG VIAL] See Protocol SUB-Q ACHS 05/02/15 02/18/20 05/01/15 History amLODIPine 5 mg PO DAILY 05/02/15 02/18/20 05/01/15 History Active Medications: Generic Name Dose Route Start Last Admin Trade Name Freq PRN Reason Stop Dose Admin Acetaminophen 650 mg 03/02/20 22:04 03/02/20 22:24 Tylenol PO 650 mg Q6H PRN Administration Non Cardiac Pain or Temp>100.5 Albuterol 2.5 mg 02/26/20 09:18 Proventil IH Q4HRT PRN Shortness Of Breath Albuterol/Ipratropium 1 ampul 02/26/20 14:00 03/04/20 10:19 Duoneb *Not For Prn Use* IH 1 ampul TIDRT LOS Administration Lipase/Protease/Amylase 1 each 02/21/20 12:12 Pancreaze 10,500 Unit FEEDTUBE PRN PRN For Clogged Feeding Tube Aspirin 81 mg 02/18/20 10:00 03/04/20 10:06 Baby Aspirin PO 81 mg DAILY LOS Administration Atorvastatin Calcium 20 mg 02/18/20 22:00 03/03/20 21:26 Lipitor PO 20 mg QHS LOS Administration Calcitriol 1 mcg 03/02/20 12:00 03/04/20 10:04 Rocaltrol PO 1 mcg QDAY LOS Administration Calcium Carbonate/Glycine 1,250 mg 03/02/20 22:00 03/04/20 10:04 Calcium Carbonate FEEDTUBE 1,250 mg BID LOS Administration Dextrose 50 ml 02/18/20 12:55 D50w (25gm) Syringe IV Q30MIN PRN Hypoglycemia Protocol Docusate Sodium 100 mg 02/20/20 12:00 03/04/20 10:05 Colace PO 100 mg BID LOS Administration Epoetin Vadim 10,000 unit 03/02/20 12:00 03/02/20 16:33 Procrit IV 10,000 unit Fr LOS Administration Heparin Sodium (Porcine) 5,000 unit 02/24/20 22:00 03/04/20 10:07 Heparin SUB-Q 5,000 unit Q12HR LOS Administration Hydrophilic Ointment 1 applic 02/17/20 15:12 Vaseline Lip Therapy TP Q2HR PRN Dry Lips Sodium Chloride 1,000 mls @ 125 mls/hr 03/01/20 04:15 03/04/20 10:53 Nacl 0.9% 1000 Ml IV 125 mls/hr DIRECT LOS Administration Meropenem 500 mg in 50 mls @ 50 mls/hr 03/02/20 14:00 03/04/20 10:06 Merrem/Ns 500 Mg/50 Ml IV 50 mls/hr Q12HR LOS Administration Insulin Human Regular 0 unit 02/18/20 13:00 03/04/20 12:04 Humulin R SUB-Q Not Given Q6HR LOS Protocol Magnesium Hydroxide 30 ml 02/18/20 02:31 Milk Of Magnesia PO Q4H PRN Constipation Multi-Ingred Cream/Lotion/Oil/Oint 1 applic 02/17/20 15:12 02/19/20 04:25 Artificial Tears Ophth Oint OU 1 applic Q4HR PRN Administration Dry Eye(s) Simple Syrup 15 ml 02/21/20 12:12 Simple Syrup FEEDTUBE PRN PRN Hypoglycemia Simple Syrup 30 ml 02/21/20 12:12 Simple Syrup FEEDTUBE PRN PRN Hypoglycemia Sodium Bicarbonate 325 mg 02/21/20 12:12 Sodium Bicarbonate FEEDTUBE PRN PRN For Clogged Feeding Tube Sodium Chloride 10 ml 02/18/20 10:00 03/04/20 10:06 Sodium Chloride Flush Syringe 10 Ml IV 10 ml BID LOS Administration Sodium Chloride 10 ml 02/18/20 02:31 Sodium Chloride Flush Syringe 10 Ml IV PRN PRN LINE FLUSH
--- NOTE | 2020-03-04 20:32 | Progress Note ---
Assessment and Plan Assessment and plan: --Severe anemia; hemoglobin of 5.4;s/p transfusion Transfused 2 units of PRBC yesterday Hemoglobin improved to 9.1 Closely monitor H&H --Hypokalemia/hypophosphatemia/hypocalcemia Replenished with potassium phosphate, calcium Levels improved, closely monitor --Hypomagnesemia; replenish with 2 g of mag sulfate Monitor levels --Dysphagia; oropharyngeal Oropharyngeal dysphagia per speech therapist Patient needs PEG placement However patient's adult friend Ms. Marquez Who expressed that Mr. Bernardo Joseph would not want to have PEG tube. Does not want the PEG tube placement GI consult was discontinued --Sepsis; right pneumonia/HCAP s/p Vanco and cefepime , Monitor off antibiotics ID following follow cultures, supportive care ID,Pulm following --New episodes of fever; Patient already completed course of antibiotics for sepsis/pneumonia Check new set of blood cultures, monitor off antibiotics ID following --Bilateral pneumonia; present on initial admission As noted above. COVID markers elevated Ferritin 1191. Ddmer >10,000. CRP 18. LDH 381. Recent sputum cx with PMDR Proteus, MRSA. H flu. MRSA PCR positive. --elevated D-dimers More than 10,000, V/Q scan low probability for PE lower extremity venous Doppler,neg DVT dc heparin Drip, prophylactic anticoagulation --Rhabdomyolysis; Continue IV fluids, input output monitoring, CK levels trending down CK [id number] We will monitor renal function --COVID-19 test negative x2 during last admission Test negative during this admission 02/18/2020 However patient has very high levels of inflammatory markers ID consulted, trend the markers --Acute resp failure with hypoxia/extubated 02/19/2020 on nasal cannula oxygen, saturating well Very high ddimer suspect PE post COVID. --Acute kidney injury on chronic kidney disease Secondary to ATN, gentle hydration Avoid nephrotoxins, monitor renal function Nephrology following -- DVT prophylaxis SCD, Heparin ,renal dose PT OT, DC planning 02/24/2020. Patient extubated yesterday and tolerated nasal cannula. Patient's baseline creatinine appears to be 1.6-1.8 2014. Continue IV fluid hydration per nephrology recommendations. CK level was elevated. Therefore, etiology may be from acute kidney injury and rhabdomyolysis. Renal ultrasound revealed chronic medical renal disease and no hydronephrosis. Urine eosinophils negative. A waiting placement. I discussed the case with case management. 02/25/2020. Patient currently with nasogastric tube and tube feedings at 45 cc an hour. Speech evaluation for swallowing. Patient currently with nasal cannula 3 L O2. Creatinine remains elevated. Recheck BMP. Continue free water flushes 200 ml q 4 hrs via NGT for hypernatremia. Urine eosinophils negative, calculated protein to cr ratio 1 g, monitor. Continue vancomycin and cefepime per ID recommendations. 02/26/2020. Speech therapy evaluation reports oropharyngeal dysphagia. Patient will likely need PEG tube placement. Attempted to call family renetta Marquez to discuss possible PEG placement, no answer. Patient with adequate urine output but creatinine still not improved significantly. Albumin 25% 100 mls q6H X 3 doses. Continue per nephrology recommendations. Antibiotics discontinued yesterday per ID recommendations. 02/27/2020. Speech therapy evaluation reports oropharyngeal dysphagia. Patient will likely need PEG tube placement. Attempted to call family Mica Marquez to discuss possible PEG placement, no answer. We will need case management for assistance. Continue per ID and nephrology recommendations. 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 Will [facility] with [facility] and try to find next of kin/family member for consent for PEG placement as well as consent for DNR/hospice status. 03/01; family and ethics committee meeting, to decide CODE STATUS and PEG placement 03/02; patient has multiple electrolyte abnormalities, severe anemia, 2 units PRBC transfusion now, poor prognosis, DNR status Considering hospice 03/03; electrolytes improved, received 2 units PRBC yesterday, Hb 9.1, patient continues to be critically ill, hypomagnesemia gave 2 g IV mag sulfate, follow electrolytes History Interval history: I have seen and examined the patient at the bedside Patient received blood transfusion hemoglobin improved to more than 9 Patient is chronically ill looking cachectic Vital signs noted Hospitalist Physical - Constitutional Vitals: Temp Pulse Resp BP Pulse Ox 99.2 F 102 H 20 106/71 98 03/04/20 20:06 03/04/20 20:23 03/04/20 20:23 03/04/20 20:06 03/04/20 20:26 General appearance: Present: mild distress, well-nourished, other (confused, chronically ill looking, noncommunicative) - EENT Eyes: Present: PERRL, EOM intact - Neck Neck: Present: supple, normal ROM - Respiratory Respiratory effort: normal Respiratory: bilateral: diminished, rhonchi, negative: rales, wheezing - Cardiovascular Rhythm: regular Heart Sounds: Present: S1 & S2 - Extremities Extremities: no ischemia, No edema - Abdominal General gastrointestinal: soft, non-tender, non-distended, normal bowel sounds - Integumentary Integumentary: Present: clear, warm - Psychiatric Psychiatric: other (Noncommunicative) - Neurologic Neurologic: other (Noncommunicative) HEART Score - HEART Score Troponin: Troponin T 0.573 ng/mL (0.00-0.029) H* D 02/20/20 17:20 Results - Labs CBC & Chem 7: 03/04/20 11:33 03/04/20 11:33 Labs: Laboratory Last Values WBC 12.7 K/mm3 (4.5-11.0) H 03/04/20 11:33 RBC 2.94 M/mm3 (3.65-5.03) L 03/04/20 11:33 Hgb 8.5 gm/dl (11.8-15.2) L 03/04/20 11:33 Hct 26.0 % (35.5-45.6) L 03/04/20 11:33 MCV 88 fl (84-94) 03/04/20 11:33 MCH 29 pg (28-32) 03/04/20 11:33 MCHC 33 % (32-34) 03/04/20 11:33 RDW 17.0 % (13.2-15.2) H 03/04/20 11:33 Plt Count 323 K/mm3 (140-440) 03/04/20 11:33 Lymph % (Auto) 16.9 % (13.4-35.0) 03/04/20 11:33 [place] % (Auto) 9.7 % (0.0-7.3) H 03/04/20 11:33 Eos % (Auto) 1.4 % (0.0-4.3) 03/04/20 11: Baso % (Auto) 0.5 % (0.0-1.8) 03/04/20 11: Lymph # 2.1 K/mm3 (1.2-5.4) 03/04/20 11:33 [place] # 1.2 K/mm3 (0.0-0.8) H 03/04/20 11:33 Eos # 0.2 K/mm3 (0.0-0.4) 03/04/20 11: Baso # 0.1 K/mm3 (0.0-0.1) 03/04/20 11:33 Add Manual Diff Complete 02/17/20 16:28 Total Counted 100 02/17/20 16:28 Seg Neutrophils % 71.5 % (40.0-70.0) H 03/04/20 11:33 Seg Neuts % (Manual) 84.0 % (40.0-70.0) H 02/17/20 16:28 Band Neutrophils % 0 % 02/17/20 16:28 Lymphocytes % (Manual) 8.0 % (13.4-35.0) L 02/17/20 16:28 Reactive Lymphs % (Man) 0 % 02/17/20 16:28 Monocytes % (Manual) 8.0 % (0.0-7.3) H 02/17/20 16:28 Eosinophils % (Manual) 0 % (0.0-4.3) 02/17/20 16:28 Basophils % (Manual) 0 % (0.0-1.8) 02/17/20 16:28 Metamyelocytes % 0 % 02/17/20 16:28 Myelocytes % 0 % 02/17/20 16:28 Promyelocytes % 0 % 02/17/20 16:28 Blast Cells % 0 % 02/17/20 16:28 Nucleated RBC % Not Reportable 02/17/20 16:28 Seg Neutrophils # 9.1 K/mm3 (1.8-7.7) H 03/04/20 11:33 Seg Neutrophils # Man 19.7 K/mm3 (1.8-7.7) H 02/17/20 16:28 Band Neutrophils # 0.0 K/mm3 02/17/20 16:28 Lymphocytes # (Manual) 1.9 K/mm3 (1.2-5.4) 02/17/20 16:28 Abs React Lymphs (Man) 0.0 K/mm3 02/17/20 16:28 Monocytes # (Manual) 1.9 K/mm3 (0.0-0.8) H 02/17/20 16:28 Eosinophils # (Manual) 0.0 K/mm3 (0.0-0.4) 02/17/20 16:28 Basophils # (Manual) 0.0 K/mm3 (0.0-0.1) 02/17/20 16:28 Metamyelocytes # 0.0 K/mm3 02/17/20 16:28 Myelocytes # 0.0 K/mm3 02/17/20 16:28 Promyelocytes # 0.0 K/mm3 02/17/20 16:28 Blast Cells # 0.0 K/mm3 02/17/20 16:28 WBC Morphology Not Reportable 02/17/20 16:28 Hypersegmented Neuts Not Reportable 02/17/20 16:28 Hyposegmented Neuts Not Reportable 02/17/20 16:28 Hypogranular Neuts Not Reportable 02/17/20 16:28 Smudge Cells Not Reportable 02/17/20 16:28 Toxic Granulation Not Reportable 02/17/20 16:28 Toxic Vacuolation Not Reportable 02/17/20 16:28 Dohle Bodies Not Reportable 02/17/20 16:28 Pelger-Huet Anomaly Not Reportable 02/17/20 16:28 Krys Rods Not Reportable 02/17/20 16:28 Platelet Estimate Not Reportable 02/17/20 16:28 Clumped Platelets Not Reportable 02/17/20 16:28 Plt Clumps, EDTA Not Reportable 02/17/20 16:28 Large Platelets Not Reportable 02/17/20 16:28 Giant Platelets Not Reportable 02/17/20 16:28 Platelet Satelliting Not Reportable 02/17/20 16:28 Plt Morphology Comment Not Reportable 02/17/20 16:28 RBC Morphology Normal 02/17/20 16:28 Dimorphic RBCs Not Reportable 02/17/20 16:28 Polychromasia Not Reportable 02/17/20 16:28 Hypochromasia Not Reportable 02/17/20 16:28 Poikilocytosis Not Reportable 02/17/20 16:28 Anisocytosis Not Reportable 02/17/20 16:28 Microcytosis Not Reportable 02/17/20 16:28 Macrocytosis Not Reportable 02/17/20 16:28 Spherocytes Not Reportable 02/17/20 16:28 Pappenheimer Bodies Not Reportable 02/17/20 16:28 Sickle Cells Not Reportable 02/17/20 16:28 Target Cells Not Reportable 02/17/20 16:28 Tear Drop Cells Not Reportable 02/17/20 16:28 Ovalocytes Not Reportable 02/17/20 16:28 Helmet Cells Not Reportable 02/17/20 16:28 [place] Bodies Not Reportable 02/17/20 16:28 Stearns Rings Not Reportable 02/17/20 16:28 Christo Cells Not Reportable 02/17/20 16:28 Bite Cells Not Reportable 02/17/20 16:28 Crenated Cell Not Reportable 02/17/20 16:28 Elliptocytes Not Reportable 02/17/20 16:28 Acanthocytes (Spur) Not Reportable 02/17/20 16:28 Rouleaux Not Reportable 02/17/20 16:28 Hemoglobin C Crystals Not Reportable 02/17/20 16:28 Schistocytes Not Reportable 02/17/20 16:28 Malaria parasites Not Reportable 02/17/20 16:28 Keron Bodies Not Reportable 02/17/20 16:28 Hem Pathologist Commnt No 02/17/20 16:28 PT 18.6 Sec. (12.2-14.9) H 02/19/20 03:20 INR 1.53 (0.87-1.13) H 02/19/20 03:20 APTT 26.8 Sec. (24.2-36.6) 02/17/20 16:28 D-Dimer 1327.30 ng/mlDDU (0-234) H 02/20/20 17:20 Heparin Anti-Xa Level < 0.10 U.I./ml (0.3-0.7) L 02/21/20 15:41 ABG pH 7.355 pH Units (7.350-7.450) 02/19/20 05:08 ABG pCO2 27.3 mm Hg 02/19/20 05:08 ABG pO2 168.2 mm Hg (80.0-90.0) H 02/19/20 05:08 ABG HCO3 14.9 mmol/L (20.0-26.0) L 02/19/20 05:08 ABG O2 Saturation 99.0 % (95.0-99.0) 02/19/20 05:08 ABG O2 Content 11.7 (0.0-44) 02/19/20 05:08 ABG Base Excess -9.5 mmol/L (-2.0-3.0) L 02/19/20 05:08 ABG Hemoglobin 8.3 gm/dl (14.0-18.0) L 02/19/20 05:08 ABG Carboxyhemoglobin 1.2 % (0.0-5.0) 02/19/20 05:08 ABG Methemoglobin 0.7 % (0.0-1.5) 02/19/20 05:08 Oxyhemoglobin 97.2 % (95.0-99.0) 02/19/20 05:08 FiO2 40 % 02/19/20 05:08 Sodium 141 mmol/L (137-145) 03/04/20 11:33 Potassium 4.3 mmol/L (3.6-5.0) 03/04/20 11:33 Chloride 107.2 mmol/L (98-107) H 03/04/20 11:33 Carbon Dioxide 20 mmol/L (22-30) L 03/04/20 11:33 Anion Gap 18 mmol/L 03/04/20 11:33 BUN 107 mg/dL (9-20) H 03/04/20 11:33 Creatinine 5.2 mg/dL (0.8-1.3) H 03/04/20 11:33 Estimated GFR 13 ml/min 03/04/20 11:33 BUN/Creatinine Ratio 21 % 03/04/20 11:33 Glucose 111 mg/dL (75-100) H 03/04/20 11:33 POC Glucose 117 (70-105) H 03/04/20 12:16 Lactic Acid 1.90 mmol/L (0.7-2.0) 02/17/20 22:56 Calcium 8.1 mg/dL (8.4-10.2) L 03/04/20 11:33 Phosphorus 3.50 mg/dL (2.5-4.5) 03/04/20 11:33 Magnesium 1.90 mg/dL (1.7-2.3) 03/04/20 11:33 Ferritin 1191.0 ng/mL (30.0-300.0) H 02/17/20 16:28 Total Bilirubin 0.50 mg/dL (0.1-1.2) 02/17/20 16:28 AST 65 units/L (5-40) H 02/17/20 16:28 ALT 81 units/L (7-56) H 02/17/20 16:28 Alkaline Phosphatase 101 units/L (35-129) 02/17/20 16:28 Lactate Dehydrogenase 381 units/L (91-180) H 02/17/20 16:28 Total Creatine Kinase 362 units/L (55-170) H 02/24/20 05:55 CK-MB (CK-2) 78.0 ng/mL (0.0-4.0) H 02/18/20 10:10 CK-MB (CK-2) Rel Index 1.3 (0-4) 02/18/20 10:10 Troponin T 0.573 ng/mL (0.00-0.029) H* D 02/20/20 17:20 C-Reactive Protein 18.20 mg/dL (0.00-1.30) H 02/17/20 16:28 NT-Pro-B Natriuret Pep 1980 pg/mL (0-900) H 02/17/20 16:28 Total Protein 5.4 g/dL (6.3-8.2) L 02/17/20 16:28 Albumin 2.3 g/dL (3.9-5) L 02/17/20 16:28 Albumin/Globulin Ratio 0.7 % 02/17/20 16:28 Triglycerides 164 mg/dL (2-149) H 02/18/20 10:10 Cholesterol 133 mg/dL (50-199) 02/18/20 10:10 LDL Cholesterol Direct 71 mg/dL (50-130) 02/18/20 10:10 HDL Cholesterol 38 mg/dL (40-59) L 02/18/20 10:10 Cholesterol/HDL Ratio 3.50 % 02/18/20 10:10 Procalcitonin 8.38 ng/mL (<0.15) 02/28/20 14:43 TSH 3.490 mlU/mL (0.270-4.200) 02/17/20 16:28 Urine Color Yellow (Yellow) 02/17/20 Unknown Urine Turbidity Slightly-cloudy (Clear) 02/17/20 Unknown Urine pH 5.0 (5.0-7.0) 02/17/20 Unknown Ur Specific [place] 1.010 (1.003-1.030) 02/17/20 Unknown Urine Protein 30 mg/dl mg/dL (Negative) 02/17/20 Unknown Urine Glucose (UA) Neg mg/dL (Negative) 02/17/20 Unknown Urine Ketones Neg mg/dL (Negative) 02/17/20 Unknown Urine Blood Mod (Negative) 02/17/20 Unknown Urine Nitrite Neg (Negative) 02/17/20 Unknown Urine Bilirubin Neg (Negative) 02/17/20 Unknown Urine Urobilinogen < 2.0 mg/dL (<2.0) 02/17/20 Unknown Ur Leukocyte Esterase Mod (Negative) 02/17/20 Unknown Urine WBC (Auto) 17.0 /HPF (0.0-6.0) H 02/17/20 Unknown Urine RBC (Auto) 17.0 /HPF (0.0-6.0) 02/17/20 Unknown U Epithel Cells (Auto) 4.0 /HPF (0-13.0) 02/17/20 Unknown Urine Bacteria (Auto) 1+ /HPF (Negative) 02/17/20 Unknown Urine Yeast (Budding) 2+ /HPF 02/17/20 Unknown Urine Eosinophils None seen (None Seen) 02/18/20 17:40 Urine Total Volume 200 ml 03/02/20 11:03 Urine Creatinine 89.1 mg/dL (0.1-20.0) H 03/02/20 11:03 Ur Creatinine 24 Hour 0.2 (0.8-2.8) L 03/02/20 11:03 Urine Microalbumin 5.9 mg/dL (0.1-34.0) 02/18/20 17:40 Microalb/Creat Ratio 167.6 ug/mg 02/18/20 17:40 Urine Sodium 104 mmol/L 02/18/20 17:40 Urine Chloride 81.0 mmolL (110-250) L 02/18/20 17:40 Urine Total Protein 38 mg/dL (5-11.8) H 02/18/20 17:40 Nasal Screen MRSA (PCR) Positive (Negative) 02/18/20 17:40 Random Vancomycin 15.6 ug/mL (0-40.0) 02/23/20 05:36 Coronavirus (PCR) Negative (Negative) 02/23/20 09:59 Blood Type B NEGATIVE 03/02/20 14:30 Antibody Screen Negative 03/02/20 14:30 Crossmatch See Detail 03/02/20 14:30 Microbiology: Microbiology 02/28/20 14:43 Peripheral/Venous Blood Culture - Final NO GROWTH AFTER 5 DAYS 02/28/20 14:43 Peripheral/Venous Blood Culture - Final NO GROWTH AFTER 5 DAYS - Diagnostic Impressions Diagnostic Impressions: Echocardiogram 02/19/20 15:05 Transthoracic Echocardiogram Indication: NSTEMI BP: 95/50 HR: 107 Conclusions *Global left ventricular systolic function is at the lower limits of normal. *The estimated ejection fraction is 45-50%. *Abnormal left ventricular diastolic filling is observed, consistent with impaired relaxation. *There is evidence of mild pulmonary hypertension. *There is no pericardial effusion. Findings Left Ventricle: The left ventricular chamber size is normal. Global left ventricular systolic function is at the lower limits of normal. The estimated ejection fraction is 45-50%. Abnormal left ventricular diastolic filling is observed, consistent with impaired relaxation. Left Atrium: The left atrial chamber size is normal. Right Ventricle: The right ventricular cavity size is normal. Right Atrium: The right atrial cavity size is normal. Aortic Valve: Mild aortic leaflet calcification is visualized. There is trace of aortic regurgitation. Mitral Valve: Mild mitral leaflet calcification is visualized. There is no evidence of mitral regurgitation. Tricuspid Valve: The tricuspid valve leaflets are normal. There is mild tricuspid regurgitation. The right ventricular systolic pressure is calculated at 40 mmHg. There is evidence of mild pulmonary hypertension. Pericardium: There is no pericardial effusion. Aorta: The aorta appears normal. Venous: The inferior vena cava appears normal. Measurements Chambers 2D Name Value Normal Range IVSd (2D) 1.09 cm (0.6 - 1.1) LVPWd (2D) 1 cm (0.6 - 1.1) LVIDd (2D) 3.55 cm (3.7 - 5.6) LVIDs (2D) 3 cm (2 - 3.8) LV FS (2D) 15.53 % - Ao root diameter (2D) 3.26 cm (2 - 3.7) Volumes/Mass Name Value Normal Range LA ESV SP 4CH (A/L) 17.3 ml - LA ESV SP 2CH (A/L) 18.3 ml - LA ESV BP (A/L) 19.14 ml - LA ESV BP (A/L) index 9.38 ml/m2 - LA ESV SP 4CH (MOD) 15.02 ml - LA ESV SP 2CH (MOD) 17.03 ml - LA ESV BP (MOD) 17.14 ml - LA ESV BP (MOD) index 8.4 ml/m2 - Diastolic/Systolic Function Name Value Normal Range MV E-wave Vmax 0.56 m/sec - MV deceleration time 197.94 msec - MV A-wave Vmax 1.36 m/sec - MV E:A ratio 0.41 ratio - Aortic Valve Name Value Normal Range AV Vmax 2.3 m/sec - AV VTI 33.77 cm - AV peak gradient 22.91 mmHg - AV mean gradient 12.27 mmHg - LVOT diameter 2.08 cm - LVOT Vmax 0.84 m/sec - LVOT VTI 14.82 cm - LVOT peak gradient 2.82 mmHg - LVOT mean gradient 2 mmHg - SV LVOT 50.44 ml - KALYAN (continuity Vmax) 1.24 cm2 - KALYAN (continuity VTI) 1.49 cm2 - AR PHT 460.84 msec - AR peak gradient 52.84 mmHg - Tricuspid Valve Name Value Normal Range TR Vmax 3.03 m/sec - TR peak gradient 37 mmHg - RAP 3 mmHg - RVSP 40 mmHg - Pulmonic Valve/Qp:Qs Name Value Normal Range PV acceleration time 106.57 msec - Yin/IV: Voiding Method Indwelling Catheter IV Catheter Type [Right INT / Saline Lock Forearm] IV Catheter Type [Right Hand] INT / Saline Lock IV Catheter Type [Left Upper INT / Saline Lock arm] IV Catheter Type [Right Triple Lumen Cath Femoral] IV Catheter Type [Right INT / Saline Lock Antecubital] Active Medications - Current Medications Current Medications: Generic Name Dose Route Start Last Admin Trade Name Freq PRN Reason Stop Dose Admin Acetaminophen 650 mg 03/02/20 22:04 03/02/20 22:24 Tylenol PO 650 mg Q6H PRN Administration Non Cardiac Pain or Temp>100.5 Albuterol 2.5 mg 02/26/20 09:18 Proventil IH Q4HRT PRN Shortness Of Breath Albuterol/Ipratropium 1 ampul 02/26/20 14:00 03/04/20 20:15 Duoneb *Not For Prn Use* IH 1 ampul TIDRT LOS Administration Lipase/Protease/Amylase 1 each 02/21/20 12:12 Pancreazchica Simon 10,500 Unit FEEDTUBE PRN PRN For Clogged Feeding Tube Aspirin 81 mg 02/18/20 10:00 03/04/20 10:06 Baby Aspirin PO 81 mg DAILY LOS Administration Atorvastatin Calcium 20 mg 02/18/20 22:00 03/03/20 21:26 Lipitor PO 20 mg QHS LOS Administration Calcitriol 1 mcg 03/02/20 12:00 03/04/20 10:04 Rocaltrol PO 1 mcg QDAY LOS Administration Calcium Carbonate/Glycine 1,250 mg 03/02/20 22:00 03/04/20 10:04 Calcium Carbonate FEEDTUBE 1,250 mg BID LOS Administration Dextrose 50 ml 02/18/20 12:55 D50w (25gm) Syringe IV Q30MIN PRN Hypoglycemia Protocol Docusate Sodium 100 mg 02/20/20 12:00 03/04/20 10:05 Colace PO 100 mg BID LOS Administration Epoetin Vadim 10,000 unit 03/02/20 12:00 03/02/20 16:33 Procrit IV 10,000 unit Fr LOS Administration Heparin Sodium (Porcine) 5,000 unit 02/24/20 22:00 03/04/20 10:07 Heparin SUB-Q 5,000 unit Q12HR LOS Administration Hydrophilic Ointment 1 applic 02/17/20 15:12 Vaseline Lip Therapy TP Q2HR PRN Dry Lips Sodium Chloride 1,000 mls @ 125 mls/hr 03/01/20 04:15 03/04/20 17:51 Nacl 0.9% 1000 Ml IV 125 mls/hr DIRECT LOS Administration Meropenem 500 mg in 50 mls @ 50 mls/hr 03/02/20 14:00 03/04/20 10:06 Merrem/Ns 500 Mg/50 Ml IV 50 mls/hr Q12HR LOS Administration Insulin Human Regular 0 unit 02/18/20 13:00 03/04/20 17:06 Humulin R SUB-Q Not Given Q6HR LOS Protocol Magnesium Hydroxide 30 ml 02/18/20 02:31 Milk Of Magnesia PO Q4H PRN Constipation Multi-Ingred Cream/Lotion/Oil/Oint 1 applic 02/17/20 15:12 02/19/20 04:25 Artificial Tears Ophth Oint OU 1 applic Q4HR PRN Administration Dry Eye(s) Simple Syrup 15 ml 02/21/20 12:12 Simple Syrup FEEDTUBE PRN PRN Hypoglycemia Simple Syrup 30 ml 02/21/20 12:12 Simple Syrup FEEDTUBE PRN PRN Hypoglycemia Sodium Bicarbonate 325 mg 02/21/20 12:12 Sodium Bicarbonate FEEDTUBE PRN PRN For Clogged Feeding Tube Sodium Chloride 10 ml 02/18/20 10:00 03/04/20 10:06 Sodium Chloride Flush Syringe 10 Ml IV 10 ml BID LOS Administration Sodium Chloride 10 ml 02/18/20 02:31 Sodium Chloride Flush Syringe 10 Ml IV PRN PRN LINE FLUSH Nutrition/Malnutrition Assess - Dietary Evaluation Nutrition/Malnutrition Findings: Nutrition Notes Start: 02/18/20 10:34 Freq: Status: Active Protocol: Document 02/29/20 10:53 [email or web address] (Rec: 02/29/20 12:00 [email or web address] [email or web address]) Co-Sign 02/29/20 10:53 LM Nutrition Notes Initial or Follow up Reassessment Current Diagnosis CKD(stage I-IV),Diabetes, Sepsis,Hypertension, Hyperlipidemia Other Pertinent Diagnosis UTI, Dementia Current Diet Nepro 1.8 at 45ml/hr Labs/Tests Glucose 147 Cr 3.4 BUN 89 Pertinent Medications Reviewed Height 6 ft Weight 87.2 kg [place] Body Weight (kg) 80.90 BMI 26.0 Subjective/Other Information Follow-up on TF and Bello administration. Pt is at goal rate of 45 mL/hr; flush 200 mL q4hr. Nurse reports that pt is tolerating TF well. Nurse has not seen Bello and thus has not administered the supplement. Pt was extubated. Percent of energy/protein needs met: 98%/100% Burn Absent Trauma Absent GI Symptoms None Skin Integrity/Comment Multiple pressure ulcers Current % PO Negligible Minimum of two criteria No physical signs of malnutrition #2 Nutrition Diagnosis Increased nutrient needs ( specify in comment below) Diagnosis Progress(for reassessment Continues documentation) #1 Nutrition Diagnosis Inadequate oral intake Diagnosis Progress(for reassessment Continues documentation) Is patient on ventilator? No Is Patient Ambulatory and/or Out of Bed No REE-([facility]-confined to bed) 1979.156 Calculation Used for Recommendations [facility] Additional Notes PRO needs: 69 - 130 g (0.8 - 1 .5 g/kg) Fluid needs: 1 mL/kcal Nutrition Intervention Change Diet Order: Continue TF Nutrition Support: Nepro at 45ml/hr Flush at 200ml q4hr Kcal 1,944 Protein (gm) 87 Fluid (mL) 785 % RDI: 100 Add Supplement/Snack (indicate name/kcal Bello BID /protein ) Provides kCal: 190 Provides Protein (gm) 5 Goal #1 TF tolerance Goal #2 Meet 80% of energy and protein needs via TF. Goal #3 Pt will receive Bello BID Anticipated Discharge Needs: Unable to determine at this time. Follow-Up By: 03/06/20 Additional Comments Follow up for continued tolerance and Bello administration.
[2020-03-05] MEDS: INSULIN REGULAR, HUMAN 100 UNIT/ML 3ML VIAL SUB-Q SCH ×4 (01:47→18:00)
[2020-03-05] MEDS: SODIUM CHLORIDE 0.9% 1000 ML 1,000 ML IV SCH (03:10)
[2020-03-05 07:45] LABS: Hematocrit 23.8 % (35.5-45.6); Hemoglobin 7.9 gm/dl (11.8-15.2); Mean Corpuscular HGB Conc 33 % (32-34); Mean Corpuscular Volume 87 fl (84-94); Platelet Count 359 K/mm3 (140-440); Red Blood Count 2.75 M/mm3 (3.65-5.03); Red Cell Distribution Width 17.1 % (13.2-15.2)
[2020-03-05] MEDS: IPRATROPIUM/ALBUTEROL SULFATE 3 ML AMPUL.NEB IH SCH ×2 (07:52→14:49)
[2020-03-05 08:40] LABS: Anisocytosis 1+; Ovalocytes Few; Poikilocytosis 1+; Total Cells Counted 100
[2020-03-05 08:41] LABS: Platelet Clumps Rare; Platelet Estimate Consistent w Auto
--- NOTE | 2020-03-05 09:21 | Progress Note ---
Assessment and Plan 74 y/o male with known dementia, mumbles very few words at baseline if any, blank stares, admitted with altered mental status, respiratory failure, worsening renal failure and sepsis with shock Pulm duong stable. Will see as needed. Subjective Date of service: 03/05/20 Principal diagnosis: Septic Shock Interval history: No acute events. Remains stable on Nasal cannula. Objective Vital Signs - 12hr 03/04/20 03/04/20 03/05/20 22:25 23:38 04:12 Temperature 99.3 F 99.3 F Pulse Rate 52 L 100 H Pulse Rate [ Anterior Bilateral Throughout] Pulse Rate [ 101 H Left Dorsalis Pedis] Pulse Rate [ 101 H Left Radial] Pulse Rate [ 101 H Right Dorsalis Pedis] Respiratory 24 20 20 Rate Respiratory Rate [Anterior Bilateral Throughout] Blood Pressure 93/46 99/64 Blood Pressure [Right] O2 Sat by Pulse 99 96 Oximetry 03/05/20 03/05/20 03/05/20 08:00 08:10 08:19 Temperature 97.6 F Pulse Rate 100 H Pulse Rate [ 88 Anterior Bilateral Throughout] Pulse Rate [ Left Dorsalis Pedis] Pulse Rate [ Left Radial] Pulse Rate [ Right Dorsalis Pedis] Respiratory 22 Rate Respiratory 18 Rate [Anterior Bilateral Throughout] Blood Pressure Blood Pressure 87/62 [Right] O2 Sat by Pulse 100 96 Oximetry Constitutional: alert ENT: other (orally intubated critically ill on vent) Neck: supple Effort: mildly labored Ascultation: Bilateral: clear, diminished breath sounds, rhonchi (Bilateral upper airway noises) Percussion: Bilateral: not dull Cardiovascular: other (sinus tachycardia) Neurologic: unable to assess CBC and BMP: 03/05/20 07:01 03/05/20 07:01 ABG, PT/INR, D-dimer: ABG ABG pH 7.355 pH Units (7.350-7.450) 02/19/20 05:08 ABG pCO2 27.3 mm Hg 02/19/20 05:08 ABG pO2 168.2 mm Hg (80.0-90.0) H 02/19/20 05:08 ABG O2 Saturation 99.0 % (95.0-99.0) 02/19/20 05:08 PT/INR, D-dimer PT 18.6 Sec. (12.2-14.9) H 02/19/20 03:20 INR 1.53 (0.87-1.13) H 02/19/20 03:20 D-Dimer 1327.30 ng/mlDDU (0-234) H 02/20/20 17:20 Abnormal lab findings: Abnormal Labs 02/17/20 02/17/20 02/17/20 16:28 16:28 16:28 WBC 23.5 H RBC 3.07 L Hgb 9.1 L Hct 28.4 L RDW 16.8 H Plt Count Lymph % (Auto) Gordon % (Auto) Eos % (Auto) Gordon # Seg Neutrophils % Seg Neuts % (Manual) 84.0 H Lymphocytes % (Manual) 8.0 L Monocytes % (Manual) 8.0 H Basophils % (Manual) Seg Neutrophils # Seg Neutrophils # Man 19.7 H Lymphocytes # (Manual) Monocytes # (Manual) 1.9 H Basophils # (Manual) PT 15.3 H INR 1.19 H D-Dimer Heparin Anti-Xa Level ABG pH ABG pO2 ABG HCO3 ABG O2 Saturation ABG Base Excess ABG Hemoglobin Sodium 136 L Potassium 5.4 H Chloride Carbon Dioxide 15 L BUN 91 H Creatinine 3.7 H D Glucose 120 H POC Glucose Lactic Acid Calcium 7.9 L Phosphorus Magnesium Ferritin AST 65 H ALT 81 H Lactate Dehydrogenase Total Creatine Kinase CK-MB (CK-2) Troponin T C-Reactive Protein NT-Pro-B Natriuret Pep Total Protein 5.4 L Albumin 2.3 L Triglycerides HDL Cholesterol Urine WBC (Auto) Urine Creatinine Ur Creatinine 24 Hour Urine Chloride Urine Total Protein Crossmatch 02/17/20 02/17/20 02/17/20 16:28 16:28 16:28 WBC RBC Hgb Hct RDW Plt Count Lymph % (Auto) Gordon % (Auto) Eos % (Auto) Gordon # Seg Neutrophils % Seg Neuts % (Manual) Lymphocytes % (Manual) Monocytes % (Manual) Basophils % (Manual) Seg Neutrophils # Seg Neutrophils # Man Lymphocytes # (Manual) Monocytes # (Manual) Basophils # (Manual) PT INR D-Dimer > 76334 H Heparin Anti-Xa Level ABG pH ABG pO2 ABG HCO3 ABG O2 Saturation ABG Base Excess ABG Hemoglobin Sodium Potassium Chloride Carbon Dioxide BUN Creatinine Glucose POC Glucose Lactic Acid 2.70 H* Calcium Phosphorus Magnesium Ferritin AST ALT Lactate Dehydrogenase Total Creatine Kinase CK-MB (CK-2) Troponin T 0.748 H* C-Reactive Protein NT-Pro-B Natriuret Pep 1980 H Total Protein Albumin Triglycerides HDL Cholesterol Urine WBC (Auto) Urine Creatinine Ur Creatinine 24 Hour Urine Chloride Urine Total Protein Crossmatch 02/17/20 02/17/20 02/17/20 16:28 16:28 18:35 WBC RBC Hgb Hct RDW Plt Count Lymph % (Auto) Gordon % (Auto) Eos % (Auto) Gordon # Seg Neutrophils % Seg Neuts % (Manual) Lymphocytes % (Manual) Monocytes % (Manual) Basophils % (Manual) Seg Neutrophils # Seg Neutrophils # Man Lymphocytes # (Manual) Monocytes # (Manual) Basophils # (Manual) PT INR D-Dimer Heparin Anti-Xa Level ABG pH 7.303 L ABG pO2 327.3 H ABG HCO3 12.5 L ABG O2 Saturation 99.5 H ABG Base Excess -12.3 L ABG Hemoglobin 11.2 L Sodium Potassium Chloride Carbon Dioxide BUN Creatinine Glucose POC Glucose Lactic Acid Calcium Phosphorus Magnesium Ferritin 1191.0 H AST ALT Lactate Dehydrogenase 381 H Total Creatine Kinase CK-MB (CK-2) Troponin T C-Reactive Protein 18.20 H NT-Pro-B Natriuret Pep Total Protein Albumin Triglycerides HDL Cholesterol Urine WBC (Auto) Urine Creatinine Ur Creatinine 24 Hour Urine Chloride Urine Total Protein Crossmatch 02/17/20 02/18/20 02/18/20 Unknown 05:20 10:10 WBC RBC Hgb Hct RDW Plt Count Lymph % (Auto) Gordon % (Auto) Eos % (Auto) Gordon # Seg Neutrophils % Seg Neuts % (Manual) Lymphocytes % (Manual) Monocytes % (Manual) Basophils % (Manual) Seg Neutrophils # Seg Neutrophils # Man Lymphocytes # (Manual) Monocytes # (Manual) Basophils # (Manual) PT INR D-Dimer Heparin Anti-Xa Level ABG pH 7.217 L ABG pO2 165.7 H ABG HCO3 10.5 L ABG O2 Saturation ABG Base Excess -15.7 L ABG Hemoglobin 10.3 L Sodium Potassium Chloride Carbon Dioxide BUN Creatinine Glucose POC Glucose Lactic Acid Calcium Phosphorus Magnesium Ferritin AST ALT Lactate Dehydrogenase Total Creatine Kinase 5660 H CK-MB (CK-2) 78.0 H Troponin T 1.030 H* D C-Reactive Protein NT-Pro-B Natriuret Pep Total Protein Albumin Triglycerides 164 H HDL Cholesterol 38 L Urine WBC (Auto) 17.0 H Urine Creatinine Ur Creatinine 24 Hour Urine Chloride Urine Total Protein Crossmatch 02/18/20 02/18/20 02/18/20 12:14 17:32 17:40 WBC RBC Hgb Hct RDW Plt Count Lymph % (Auto) Gordon % (Auto) Eos % (Auto) Gordon # Seg Neutrophils % Seg Neuts % (Manual) Lymphocytes % (Manual) Monocytes % (Manual) Basophils % (Manual) Seg Neutrophils # Seg Neutrophils # Man Lymphocytes # (Manual) Monocytes # (Manual) Basophils # (Manual) PT INR D-Dimer Heparin Anti-Xa Level ABG pH ABG pO2 ABG HCO3 ABG O2 Saturation ABG Base Excess ABG Hemoglobin Sodium Potassium Chloride Carbon Dioxide BUN Creatinine Glucose POC Glucose 193 H 191 H Lactic Acid Calcium Phosphorus Magnesium Ferritin AST ALT Lactate Dehydrogenase Total Creatine Kinase CK-MB (CK-2) Troponin T C-Reactive Protein NT-Pro-B Natriuret Pep Total Protein Albumin Triglycerides HDL Cholesterol Urine WBC (Auto) Urine Creatinine 35.2 H Ur Creatinine 24 Hour Urine Chloride 81.0 L Urine Total Protein 38 H Crossmatch 02/18/20 02/19/20 02/19/20 17:40 00:04 01:50 WBC RBC Hgb Hct RDW Plt Count Lymph % (Auto) Gordon % (Auto) Eos % (Auto) Gordon # Seg Neutrophils % Seg Neuts % (Manual) Lymphocytes % (Manual) Monocytes % (Manual) Basophils % (Manual) Seg Neutrophils # Seg Neutrophils # Man Lymphocytes # (Manual) Monocytes # (Manual) Basophils # (Manual) PT INR D-Dimer Heparin Anti-Xa Level 0.18 L ABG pH ABG pO2 ABG HCO3 ABG O2 Saturation ABG Base Excess ABG Hemoglobin Sodium Potassium Chloride 111.4 H Carbon Dioxide 11 L BUN 77 H Creatinine 2.8 H Glucose 168 H POC Glucose 145 H Lactic Acid Calcium 7.2 L Phosphorus Magnesium Ferritin AST ALT Lactate Dehydrogenase Total Creatine Kinase CK-MB (CK-2) Troponin T C-Reactive Protein NT-Pro-B Natriuret Pep Total Protein Albumin Triglycerides HDL Cholesterol Urine WBC (Auto) Urine Creatinine Ur Creatinine 24 Hour Urine Chloride Urine Total Protein Crossmatch 02/19/20 02/19/20 02/19/20 03:20 04:00 05:08 WBC 17.6 H RBC 2.76 L Hgb 8.1 L Hct 25.0 L RDW 16.6 H Plt Count Lymph % (Auto) 10.5 L Gordon % (Auto) Eos % (Auto) Gordon # 1.2 H Seg Neutrophils % 82.1 H Seg Neuts % (Manual) Lymphocytes % (Manual) Monocytes % (Manual) Basophils % (Manual) Seg Neutrophils # 14.5 H Seg Neutrophils # Man Lymphocytes # (Manual) Monocytes # (Manual) Basophils # (Manual) PT 18.6 H INR 1.53 H D-Dimer Heparin Anti-Xa Level ABG pH ABG pO2 168.2 H ABG HCO3 14.9 L ABG O2 Saturation ABG Base Excess -9.5 L ABG Hemoglobin 8.3 L Sodium Potassium Chloride Carbon Dioxide BUN Creatinine Glucose POC Glucose Lactic Acid Calcium Phosphorus Magnesium Ferritin AST ALT Lactate Dehydrogenase Total Creatine Kinase CK-MB (CK-2) Troponin T C-Reactive Protein NT-Pro-B Natriuret Pep Total Protein Albumin Triglycerides HDL Cholesterol Urine WBC (Auto) Urine Creatinine Ur Creatinine 24 Hour Urine Chloride Urine Total Protein Crossmatch 02/19/20 02/19/20 02/19/20 05:38 05:50 09:10 WBC RBC Hgb Hct RDW Plt Count Lymph % (Auto) Gordon % (Auto) Eos % (Auto) Gordon # Seg Neutrophils % Seg Neuts % (Manual) Lymphocytes % (Manual) Monocytes % (Manual) Basophils % (Manual) Seg Neutrophils # Seg Neutrophils # Man Lymphocytes # (Manual) Monocytes # (Manual) Basophils # (Manual) PT INR D-Dimer Heparin Anti-Xa Level ABG pH ABG pO2 ABG HCO3 ABG O2 Saturation ABG Base Excess ABG Hemoglobin Sodium Potassium Chloride 111.6 H 111.9 H Carbon Dioxide 14 L 15 L BUN 69 H 68 H Creatinine 2.6 H 2.5 H Glucose 151 H 154 H POC Glucose 143 H Lactic Acid Calcium 7.4 L 7.2 L Phosphorus Magnesium Ferritin AST ALT Lactate Dehydrogenase Total Creatine Kinase 3552 H CK-MB (CK-2) Troponin T C-Reactive Protein NT-Pro-B Natriuret Pep Total Protein Albumin Triglycerides HDL Cholesterol Urine WBC (Auto) Urine Creatinine Ur Creatinine 24 Hour Urine Chloride Urine Total Protein Crossmatch 02/19/20 02/19/20 02/19/20 11:41 12:00 17:46 WBC RBC Hgb Hct RDW Plt Count Lymph % (Auto) Gordon % (Auto) Eos % (Auto) Gordon # Seg Neutrophils % Seg Neuts % (Manual) Lymphocytes % (Manual) Monocytes % (Manual) Basophils % (Manual) Seg Neutrophils # Seg Neutrophils # Man Lymphocytes # (Manual) Monocytes # (Manual) Basophils # (Manual) PT INR D-Dimer Heparin Anti-Xa Level 0.11 L ABG pH ABG pO2 ABG HCO3 ABG O2 Saturation ABG Base Excess ABG Hemoglobin Sodium Potassium Chloride Carbon Dioxide BUN Creatinine Glucose POC Glucose 160 H 133 H Lactic Acid Calcium Phosphorus Magnesium Ferritin AST ALT Lactate Dehydrogenase Total Creatine Kinase CK-MB (CK-2) Troponin T C-Reactive Protein NT-Pro-B Natriuret Pep Total Protein Albumin Triglycerides HDL Cholesterol Urine WBC (Auto) Urine Creatinine Ur Creatinine 24 Hour Urine Chloride Urine Total Protein Crossmatch 02/19/20 02/19/20 02/20/20 20:02 23:50 04:44 WBC RBC 2.64 L Hgb 7.9 L Hct 24.1 L RDW 16.3 H Plt Count 137 L Lymph % (Auto) Gordon % (Auto) Eos % (Auto) Gordon # Seg Neutrophils % Seg Neuts % (Manual) Lymphocytes % (Manual) Monocytes % (Manual) Basophils % (Manual) Seg Neutrophils # Seg Neutrophils # Man Lymphocytes # (Manual) Monocytes # (Manual) Basophils # (Manual) PT INR D-Dimer Heparin Anti-Xa Level 0.12 L ABG pH ABG pO2 ABG HCO3 ABG O2 Saturation ABG Base Excess ABG Hemoglobin Sodium Potassium Chloride Carbon Dioxide BUN Creatinine Glucose POC Glucose 128 H Lactic Acid Calcium Phosphorus Magnesium Ferritin AST ALT Lactate Dehydrogenase Total Creatine Kinase CK-MB (CK-2) Troponin T C-Reactive Protein NT-Pro-B Natriuret Pep Total Protein Albumin Triglycerides HDL Cholesterol Urine WBC (Auto) Urine Creatinine Ur Creatinine 24 Hour Urine Chloride Urine Total Protein Crossmatch 02/20/20 02/20/20 02/20/20 04:44 04:44 10:00 WBC RBC Hgb Hct RDW Plt Count Lymph % (Auto) Gordon % (Auto) Eos % (Auto) Gordon # Seg Neutrophils % Seg Neuts % (Manual) Lymphocytes % (Manual) Monocytes % (Manual) Basophils % (Manual) Seg Neutrophils # Seg Neutrophils # Man Lymphocytes # (Manual) Monocytes # (Manual) Basophils # (Manual) PT INR D-Dimer Heparin Anti-Xa Level 0.15 L < 0.10 L ABG pH ABG pO2 ABG HCO3 ABG O2 Saturation ABG Base Excess ABG Hemoglobin Sodium Potassium Chloride 110.4 H Carbon Dioxide 19 L BUN 61 H Creatinine 2.4 H Glucose POC Glucose Lactic Acid Calcium 7.3 L Phosphorus Magnesium Ferritin AST ALT Lactate Dehydrogenase Total Creatine Kinase 2238 H CK-MB (CK-2) Troponin T C-Reactive Protein NT-Pro-B Natriuret Pep Total Protein Albumin Triglycerides HDL Cholesterol Urine WBC (Auto) Urine Creatinine Ur Creatinine 24 Hour Urine Chloride Urine Total Protein Crossmatch 02/20/20 02/20/20 02/20/20 12:58 17:20 17:20 WBC RBC Hgb Hct RDW Plt Count Lymph % (Auto) Gordon % (Auto) Eos % (Auto) Gordon # Seg Neutrophils % Seg Neuts % (Manual) Lymphocytes % (Manual) Monocytes % (Manual) Basophils % (Manual) Seg Neutrophils # Seg Neutrophils # Man Lymphocytes # (Manual) Monocytes # (Manual) Basophils # (Manual) PT INR D-Dimer 1327.30 H Heparin Anti-Xa Level 0.17 L ABG pH ABG pO2 ABG HCO3 ABG O2 Saturation ABG Base Excess ABG Hemoglobin Sodium Potassium Chloride Carbon Dioxide BUN Creatinine Glucose POC Glucose 123 H Lactic Acid Calcium Phosphorus Magnesium Ferritin AST ALT Lactate Dehydrogenase Total Creatine Kinase CK-MB (CK-2) Troponin T C-Reactive Protein NT-Pro-B Natriuret Pep Total Protein Albumin Triglycerides HDL Cholesterol Urine WBC (Auto) Urine Creatinine Ur Creatinine 24 Hour Urine Chloride Urine Total Protein Crossmatch 02/20/20 02/20/20 02/20/20 17:20 18:11 23:52 WBC RBC Hgb Hct RDW Plt Count Lymph % (Auto) Gordon % (Auto) Eos % (Auto) Gordon # Seg Neutrophils % Seg Neuts % (Manual) Lymphocytes % (Manual) Monocytes % (Manual) Basophils % (Manual) Seg Neutrophils # Seg Neutrophils # Man Lymphocytes # (Manual) Monocytes # (Manual) Basophils # (Manual) PT INR D-Dimer Heparin Anti-Xa Level ABG pH ABG pO2 ABG HCO3 ABG O2 Saturation ABG Base Excess ABG Hemoglobin Sodium Potassium Chloride Carbon Dioxide BUN Creatinine Glucose POC Glucose 156 H 153 H Lactic Acid Calcium Phosphorus Magnesium Ferritin AST ALT Lactate Dehydrogenase Total Creatine Kinase CK-MB (CK-2) Troponin T 0.573 H* D C-Reactive Protein NT-Pro-B Natriuret Pep Total Protein Albumin Triglycerides HDL Cholesterol Urine WBC (Auto) Urine Creatinine Ur Creatinine 24 Hour Urine Chloride Urine Total Protein Crossmatch 02/21/20 02/21/20 02/21/20 04:39 04:39 05:12 WBC RBC 2.35 L Hgb 6.9 L Hct 21.1 L RDW 16.2 H Plt Count 126 L Lymph % (Auto) Gordon % (Auto) Eos % (Auto) Gordon # Seg Neutrophils % Seg Neuts % (Manual) Lymphocytes % (Manual) Monocytes % (Manual) Basophils % (Manual) Seg Neutrophils # Seg Neutrophils # Man Lymphocytes # (Manual) Monocytes # (Manual) Basophils # (Manual) PT INR D-Dimer Heparin Anti-Xa Level ABG pH ABG pO2 ABG HCO3 ABG O2 Saturation ABG Base Excess ABG Hemoglobin Sodium Potassium Chloride Carbon Dioxide BUN 54 H Creatinine 2.2 H Glucose 120 H POC Glucose 139 H Lactic Acid Calcium 6.8 L Phosphorus Magnesium Ferritin AST ALT Lactate Dehydrogenase Total Creatine Kinase 1488 H CK-MB (CK-2) Troponin T C-Reactive Protein NT-Pro-B Natriuret Pep Total Protein Albumin Triglycerides HDL Cholesterol Urine WBC (Auto) Urine Creatinine Ur Creatinine 24 Hour Urine Chloride Urine Total Protein Crossmatch 02/21/20 02/21/20 02/21/20 10:47 13:24 15:41 WBC RBC Hgb Hct RDW Plt Count Lymph % (Auto) Gordon % (Auto) Eos % (Auto) Gordon # Seg Neutrophils % Seg Neuts % (Manual) Lymphocytes % (Manual) Monocytes % (Manual) Basophils % (Manual) Seg Neutrophils # Seg Neutrophils # Man Lymphocytes # (Manual) Monocytes # (Manual) Basophils # (Manual) PT INR D-Dimer Heparin Anti-Xa Level < 0.10 L ABG pH ABG pO2 ABG HCO3 ABG O2 Saturation ABG Base Excess ABG Hemoglobin Sodium Potassium Chloride Carbon Dioxide BUN Creatinine Glucose POC Glucose 107 H Lactic Acid Calcium Phosphorus Magnesium Ferritin AST ALT Lactate Dehydrogenase Total Creatine Kinase CK-MB (CK-2) Troponin T C-Reactive Protein NT-Pro-B Natriuret Pep Total Protein Albumin Triglycerides HDL Cholesterol Urine WBC (Auto) Urine Creatinine Ur Creatinine 24 Hour Urine Chloride Urine Total Protein Crossmatch See Detail 02/22/20 02/22/20 02/22/20 05:13 05:13 12:24 WBC RBC 3.18 L Hgb 9.5 L Hct 27.6 L D RDW 15.9 H Plt Count 114 L Lymph % (Auto) Gordon % (Auto) Eos % (Auto) Gordon # Seg Neutrophils % Seg Neuts % (Manual) Lymphocytes % (Manual) Monocytes % (Manual) Basophils % (Manual) Seg Neutrophils # Seg Neutrophils # Man Lymphocytes # (Manual) Monocytes # (Manual) Basophils # (Manual) PT INR D-Dimer Heparin Anti-Xa Level ABG pH ABG pO2 ABG HCO3 ABG O2 Saturation ABG Base Excess ABG Hemoglobin Sodium Potassium Chloride Carbon Dioxide BUN 52 H Creatinine 2.3 H Glucose 103 H POC Glucose 122 H Lactic Acid Calcium 6.7 L Phosphorus Magnesium Ferritin AST ALT Lactate Dehydrogenase Total Creatine Kinase 865 H CK-MB (CK-2) Troponin T C-Reactive Protein NT-Pro-B Natriuret Pep Total Protein Albumin Triglycerides HDL Cholesterol Urine WBC (Auto) Urine Creatinine Ur Creatinine 24 Hour Urine Chloride Urine Total Protein Crossmatch 02/22/20 02/23/20 02/23/20 17:17 05:27 05:36 WBC RBC 3.15 L Hgb 9.4 L Hct 27.6 L RDW 15.9 H Plt Count 97 L Lymph % (Auto) Gordon % (Auto) Eos % (Auto) Gordon # Seg Neutrophils % Seg Neuts % (Manual) Lymphocytes % (Manual) Monocytes % (Manual) Basophils % (Manual) Seg Neutrophils # Seg Neutrophils # Man Lymphocytes # (Manual) Monocytes # (Manual) Basophils # (Manual) PT INR D-Dimer Heparin Anti-Xa Level ABG pH ABG pO2 ABG HCO3 ABG O2 Saturation ABG Base Excess ABG Hemoglobin Sodium Potassium Chloride Carbon Dioxide BUN Creatinine Glucose POC Glucose 165 H 120 H Lactic Acid Calcium Phosphorus Magnesium Ferritin AST ALT Lactate Dehydrogenase Total Creatine Kinase CK-MB (CK-2) Troponin T C-Reactive Protein NT-Pro-B Natriuret Pep Total Protein Albumin Triglycerides HDL Cholesterol Urine WBC (Auto) Urine Creatinine Ur Creatinine 24 Hour Urine Chloride Urine Total Protein Crossmatch 02/23/20 02/23/20 02/23/20 05:36 05:36 11:57 WBC RBC Hgb Hct RDW Plt Count Lymph % (Auto) Gordon % (Auto) Eos % (Auto) Gordon # Seg Neutrophils % Seg Neuts % (Manual) Lymphocytes % (Manual) Monocytes % (Manual) Basophils % (Manual) Seg Neutrophils # Seg Neutrophils # Man Lymphocytes # (Manual) Monocytes # (Manual) Basophils # (Manual) PT INR D-Dimer Heparin Anti-Xa Level ABG pH ABG pO2 ABG HCO3 ABG O2 Saturation ABG Base Excess ABG Hemoglobin Sodium Potassium 3.0 L D Chloride Carbon Dioxide BUN 53 H Creatinine 2.3 H Glucose 115 H POC Glucose 162 H Lactic Acid Calcium 7.0 L Phosphorus Magnesium 1.20 L Ferritin AST ALT Lactate Dehydrogenase Total Creatine Kinase 476 H CK-MB (CK-2) Troponin T C-Reactive Protein NT-Pro-B Natriuret Pep Total Protein Albumin Triglycerides HDL Cholesterol Urine WBC (Auto) Urine Creatinine Ur Creatinine 24 Hour Urine Chloride Urine Total Protein Crossmatch 02/24/20 02/24/20 02/24/20 05:33 05:55 05:55 WBC RBC 3.17 L Hgb 9.4 L Hct 28.2 L RDW 16.1 H Plt Count 96 L Lymph % (Auto) Gordon % (Auto) Eos % (Auto) Gordon # Seg Neutrophils % Seg Neuts % (Manual) Lymphocytes % (Manual) Monocytes % (Manual) Basophils % (Manual) Seg Neutrophils # Seg Neutrophils # Man Lymphocytes # (Manual) Monocytes # (Manual) Basophils # (Manual) PT INR D-Dimer Heparin Anti-Xa Level ABG pH ABG pO2 ABG HCO3 ABG O2 Saturation ABG Base Excess ABG Hemoglobin Sodium 146 H Potassium Chloride 110.0 H Carbon Dioxide BUN 69 H Creatinine 2.6 H Glucose 119 H POC Glucose 156 H Lactic Acid Calcium 7.2 L Phosphorus Magnesium Ferritin AST ALT Lactate Dehydrogenase Total Creatine Kinase 362 H CK-MB (CK-2) Troponin T C-Reactive Protein NT-Pro-B Natriuret Pep Total Protein Albumin Triglycerides HDL Cholesterol Urine WBC (Auto) Urine Creatinine Ur Creatinine 24 Hour Urine Chloride Urine Total Protein Crossmatch 02/24/20 02/24/20 02/24/20 11:51 18:35 23:41 WBC RBC Hgb Hct RDW Plt Count Lymph % (Auto) Gordon % (Auto) Eos % (Auto) Gordon # Seg Neutrophils % Seg Neuts % (Manual) Lymphocytes % (Manual) Monocytes % (Manual) Basophils % (Manual) Seg Neutrophils # Seg Neutrophils # Man Lymphocytes # (Manual) Monocytes # (Manual) Basophils # (Manual) PT INR D-Dimer Heparin Anti-Xa Level ABG pH ABG pO2 ABG HCO3 ABG O2 Saturation ABG Base Excess ABG Hemoglobin Sodium Potassium Chloride Carbon Dioxide BUN Creatinine Glucose POC Glucose 155 H 134 H 148 H Lactic Acid Calcium Phosphorus Magnesium Ferritin AST ALT Lactate Dehydrogenase Total Creatine Kinase CK-MB (CK-2) Troponin T C-Reactive Protein NT-Pro-B Natriuret Pep Total Protein Albumin Triglycerides HDL Cholesterol Urine WBC (Auto) Urine Creatinine Ur Creatinine 24 Hour Urine Chloride Urine Total Protein Crossmatch 02/25/20 02/25/20 02/25/20 05:11 10:39 11:40 WBC RBC Hgb 8.6 L Hct 25.6 L RDW Plt Count 79 L Lymph % (Auto) Gordon % (Auto) Eos % (Auto) Gordon # Seg Neutrophils % Seg Neuts % (Manual) Lymphocytes % (Manual) Monocytes % (Manual) Basophils % (Manual) Seg Neutrophils # Seg Neutrophils # Man Lymphocytes # (Manual) Monocytes # (Manual) Basophils # (Manual) PT INR D-Dimer Heparin Anti-Xa Level ABG pH ABG pO2 ABG HCO3 ABG O2 Saturation ABG Base Excess ABG Hemoglobin Sodium Potassium Chloride 108.6 H Carbon Dioxide BUN 77 H Creatinine 2.9 H Glucose 121 H POC Glucose 119 H Lactic Acid Calcium 7.5 L Phosphorus Magnesium Ferritin AST ALT Lactate Dehydrogenase Total Creatine Kinase CK-MB (CK-2) Troponin T C-Reactive Protein NT-Pro-B Natriuret Pep Total Protein Albumin Triglycerides HDL Cholesterol Urine WBC (Auto) Urine Creatinine Ur Creatinine 24 Hour Urine Chloride Urine Total Protein Crossmatch 02/25/20 02/25/20 02/25/20 15:24 17:21 23:18 WBC RBC Hgb Hct RDW Plt Count Lymph % (Auto) Gordon % (Auto) Eos % (Auto) Gordon # Seg Neutrophils % Seg Neuts % (Manual) Lymphocytes % (Manual) Monocytes % (Manual) Basophils % (Manual) Seg Neutrophils # Seg Neutrophils # Man Lymphocytes # (Manual) Monocytes # (Manual) Basophils # (Manual) PT INR D-Dimer Heparin Anti-Xa Level ABG pH ABG pO2 ABG HCO3 ABG O2 Saturation ABG Base Excess ABG Hemoglobin Sodium Potassium Chloride Carbon Dioxide BUN Creatinine Glucose POC Glucose 138 H 139 H 109 H Lactic Acid Calcium Phosphorus Magnesium Ferritin AST ALT Lactate Dehydrogenase Total Creatine Kinase CK-MB (CK-2) Troponin T C-Reactive Protein NT-Pro-B Natriuret Pep Total Protein Albumin Triglycerides HDL Cholesterol Urine WBC (Auto) Urine Creatinine Ur Creatinine 24 Hour Urine Chloride Urine Total Protein Crossmatch 02/26/20 02/26/20 02/26/20 05:55 12:12 13:02 WBC RBC Hgb Hct RDW Plt Count Lymph % (Auto) Gordon % (Auto) Eos % (Auto) Gordon # Seg Neutrophils % Seg Neuts % (Manual) Lymphocytes % (Manual) Monocytes % (Manual) Basophils % (Manual) Seg Neutrophils # Seg Neutrophils # Man Lymphocytes # (Manual) Monocytes # (Manual) Basophils # (Manual) PT INR D-Dimer Heparin Anti-Xa Level ABG pH ABG pO2 ABG HCO3 ABG O2 Saturation ABG Base Excess ABG Hemoglobin Sodium 146 H Potassium Chloride 112.7 H Carbon Dioxide 20 L BUN 81 H Creatinine 3.0 H Glucose 123 H POC Glucose 111 H 128 H Lactic Acid Calcium 7.9 L Phosphorus Magnesium Ferritin AST ALT Lactate Dehydrogenase Total Creatine Kinase CK-MB (CK-2) Troponin T C-Reactive Protein NT-Pro-B Natriuret Pep Total Protein Albumin Triglycerides HDL Cholesterol Urine WBC (Auto) Urine Creatinine Ur Creatinine 24 Hour Urine Chloride Urine Total Protein Crossmatch 02/26/20 02/26/20 02/27/20 17:57 23:16 06:05 WBC RBC 2.84 L Hgb 8.5 L Hct 25.0 L RDW 15.8 H Plt Count 65 L Lymph % (Auto) Gordon % (Auto) 12.1 H Eos % (Auto) 5.1 H Gordon # Seg Neutrophils % Seg Neuts % (Manual) Lymphocytes % (Manual) Monocytes % (Manual) Basophils % (Manual) Seg Neutrophils # Seg Neutrophils # Man Lymphocytes # (Manual) Monocytes # (Manual) Basophils # (Manual) PT INR D-Dimer Heparin Anti-Xa Level ABG pH ABG pO2 ABG HCO3 ABG O2 Saturation ABG Base Excess ABG Hemoglobin Sodium Potassium Chloride Carbon Dioxide BUN Creatinine Glucose POC Glucose 156 H 168 H Lactic Acid Calcium Phosphorus Magnesium Ferritin AST ALT Lactate Dehydrogenase Total Creatine Kinase CK-MB (CK-2) Troponin T C-Reactive Protein NT-Pro-B Natriuret Pep Total Protein Albumin Triglycerides HDL Cholesterol Urine WBC (Auto) Urine Creatinine Ur Creatinine 24 Hour Urine Chloride Urine Total Protein Crossmatch 02/27/20 02/27/20 02/27/20 06:05 11:44 19:00 WBC RBC Hgb Hct RDW Plt Count Lymph % (Auto) Gordon % (Auto) Eos % (Auto) Gordon # Seg Neutrophils % Seg Neuts % (Manual) Lymphocytes % (Manual) Monocytes % (Manual) Basophils % (Manual) Seg Neutrophils # Seg Neutrophils # Man Lymphocytes # (Manual) Monocytes # (Manual) Basophils # (Manual) PT INR D-Dimer Heparin Anti-Xa Level ABG pH ABG pO2 ABG HCO3 ABG O2 Saturation ABG Base Excess ABG Hemoglobin Sodium 146 H Potassium Chloride 110.2 H Carbon Dioxide BUN 80 H Creatinine 3.3 H Glucose POC Glucose 116 H 134 H Lactic Acid Calcium 7.8 L Phosphorus Magnesium Ferritin AST ALT Lactate Dehydrogenase Total Creatine Kinase CK-MB (CK-2) Troponin T C-Reactive Protein NT-Pro-B Natriuret Pep Total Protein Albumin Triglycerides HDL Cholesterol Urine WBC (Auto) Urine Creatinine Ur Creatinine 24 Hour Urine Chloride Urine Total Protein Crossmatch 02/27/20 02/28/20 02/28/20 23:52 04:52 04:52 WBC RBC 2.73 L Hgb 8.1 L Hct 23.9 L RDW 15.9 H Plt Count 74 L Lymph % (Auto) Gordon % (Auto) 14.1 H Eos % (Auto) Gordon # 1.0 H Seg Neutrophils % Seg Neuts % (Manual) Lymphocytes % (Manual) Monocytes % (Manual) Basophils % (Manual) Seg Neutrophils # Seg Neutrophils # Man Lymphocytes # (Manual) Monocytes # (Manual) Basophils # (Manual) PT INR D-Dimer Heparin Anti-Xa Level ABG pH ABG pO2 ABG HCO3 ABG O2 Saturation ABG Base Excess ABG Hemoglobin Sodium Potassium Chloride 107.5 H Carbon Dioxide BUN 81 H Creatinine 3.0 H Glucose 128 H POC Glucose 117 H Lactic Acid Calcium 7.7 L Phosphorus Magnesium Ferritin AST ALT Lactate Dehydrogenase Total Creatine Kinase CK-MB (CK-2) Troponin T C-Reactive Protein NT-Pro-B Natriuret Pep Total Protein Albumin Triglycerides HDL Cholesterol Urine WBC (Auto) Urine Creatinine Ur Creatinine 24 Hour Urine Chloride Urine Total Protein Crossmatch 02/28/20 02/28/20 02/28/20 05:52 12:19 16:24 WBC RBC Hgb Hct RDW Plt Count Lymph % (Auto) Gordon % (Auto) Eos % (Auto) Gordon # Seg Neutrophils % Seg Neuts % (Manual) Lymphocytes % (Manual) Monocytes % (Manual) Basophils % (Manual) Seg Neutrophils # Seg Neutrophils # Man Lymphocytes # (Manual) Monocytes # (Manual) Basophils # (Manual) PT INR D-Dimer Heparin Anti-Xa Level ABG pH ABG pO2 ABG HCO3 ABG O2 Saturation ABG Base Excess ABG Hemoglobin Sodium Potassium Chloride Carbon Dioxide BUN Creatinine Glucose POC Glucose 148 H 152 H 118 H Lactic Acid Calcium Phosphorus Magnesium Ferritin AST ALT Lactate Dehydrogenase Total Creatine Kinase CK-MB (CK-2) Troponin T C-Reactive Protein NT-Pro-B Natriuret Pep Total Protein Albumin Triglycerides HDL Cholesterol Urine WBC (Auto) Urine Creatinine Ur Creatinine 24 Hour Urine Chloride Urine Total Protein Crossmatch 02/29/20 02/29/20 02/29/20 00:12 05:21 06:00 WBC RBC 2.73 L Hgb 8.2 L Hct 24.0 L RDW 16.4 H Plt Count 88 L Lymph % (Auto) Gordon % (Auto) 13.9 H Eos % (Auto) Gordon # 1.2 H Seg Neutrophils % Seg Neuts % (Manual) Lymphocytes % (Manual) Monocytes % (Manual) Basophils % (Manual) Seg Neutrophils # Seg Neutrophils # Man Lymphocytes # (Manual) Monocytes # (Manual) Basophils # (Manual) PT INR D-Dimer Heparin Anti-Xa Level ABG pH ABG pO2 ABG HCO3 ABG O2 Saturation ABG Base Excess ABG Hemoglobin Sodium Potassium Chloride Carbon Dioxide BUN Creatinine Glucose POC Glucose 144 H 184 H Lactic Acid Calcium Phosphorus Magnesium Ferritin AST ALT Lactate Dehydrogenase Total Creatine Kinase CK-MB (CK-2) Troponin T C-Reactive Protein NT-Pro-B Natriuret Pep Total Protein Albumin Triglycerides HDL Cholesterol Urine WBC (Auto) Urine Creatinine Ur Creatinine 24 Hour Urine Chloride Urine Total Protein Crossmatch 02/29/20 02/29/20 02/29/20 06:00 12:19 16:13 WBC RBC Hgb Hct RDW Plt Count Lymph % (Auto) Gordon % (Auto) Eos % (Auto) Gordon # Seg Neutrophils % Seg Neuts % (Manual) Lymphocytes % (Manual) Monocytes % (Manual) Basophils % (Manual) Seg Neutrophils # Seg Neutrophils # Man Lymphocytes # (Manual) Monocytes # (Manual) Basophils # (Manual) PT INR D-Dimer Heparin Anti-Xa Level ABG pH ABG pO2 ABG HCO3 ABG O2 Saturation ABG Base Excess ABG Hemoglobin Sodium Potassium Chloride Carbon Dioxide BUN 89 H Creatinine 3.4 H Glucose 147 H POC Glucose 167 H 175 H Lactic Acid Calcium 7.7 L Phosphorus Magnesium Ferritin AST ALT Lactate Dehydrogenase Total Creatine Kinase CK-MB (CK-2) Troponin T C-Reactive Protein NT-Pro-B Natriuret Pep Total Protein Albumin Triglycerides HDL Cholesterol Urine WBC (Auto) Urine Creatinine Ur Creatinine 24 Hour Urine Chloride Urine Total Protein Crossmatch 03/01/20 03/01/20 03/01/20 00:00 05:04 05:04 WBC RBC 2.58 L Hgb 7.6 L Hct 23.1 L RDW 15.9 H Plt Count 121 L Lymph % (Auto) Gordon % (Auto) 13.7 H Eos % (Auto) Gordon # 1.3 H Seg Neutrophils % Seg Neuts % (Manual) Lymphocytes % (Manual) Monocytes % (Manual) Basophils % (Manual) Seg Neutrophils # Seg Neutrophils # Man Lymphocytes # (Manual) Monocytes # (Manual) Basophils # (Manual) PT INR D-Dimer Heparin Anti-Xa Level ABG pH ABG pO2 ABG HCO3 ABG O2 Saturation ABG Base Excess ABG Hemoglobin Sodium Potassium Chloride 108.5 H Carbon Dioxide BUN 99 H Creatinine 3.9 H Glucose 117 H POC Glucose 159 H Lactic Acid Calcium 7.9 L Phosphorus Magnesium Ferritin AST ALT Lactate Dehydrogenase Total Creatine Kinase CK-MB (CK-2) Troponin T C-Reactive Protein NT-Pro-B Natriuret Pep Total Protein Albumin Triglycerides HDL Cholesterol Urine WBC (Auto) Urine Creatinine Ur Creatinine 24 Hour Urine Chloride Urine Total Protein Crossmatch 03/01/20 03/01/20 03/01/20 05:34 12:27 17:36 WBC RBC Hgb Hct RDW Plt Count Lymph % (Auto) Gordon % (Auto) Eos % (Auto) Gordon # Seg Neutrophils % Seg Neuts % (Manual) Lymphocytes % (Manual) Monocytes % (Manual) Basophils % (Manual) Seg Neutrophils # Seg Neutrophils # Man Lymphocytes # (Manual) Monocytes # (Manual) Basophils # (Manual) PT INR D-Dimer Heparin Anti-Xa Level ABG pH ABG pO2 ABG HCO3 ABG O2 Saturation ABG Base Excess ABG Hemoglobin Sodium Potassium Chloride Carbon Dioxide BUN Creatinine Glucose POC Glucose 153 H 135 H 139 H Lactic Acid Calcium Phosphorus Magnesium Ferritin AST ALT Lactate Dehydrogenase Total Creatine Kinase CK-MB (CK-2) Troponin T C-Reactive Protein NT-Pro-B Natriuret Pep Total Protein Albumin Triglycerides HDL Cholesterol Urine WBC (Auto) Urine Creatinine Ur Creatinine 24 Hour Urine Chloride Urine Total Protein Crossmatch 03/01/20 03/02/20 03/02/20 21:05 07:00 08:24 WBC RBC Hgb Hct RDW Plt Count Lymph % (Auto) Gordon % (Auto) Eos % (Auto) Gordon # Seg Neutrophils % Seg Neuts % (Manual) Lymphocytes % (Manual) Monocytes % (Manual) Basophils % (Manual) Seg Neutrophils # Seg Neutrophils # Man Lymphocytes # (Manual) Monocytes # (Manual) Basophils # (Manual) PT INR D-Dimer Heparin Anti-Xa Level ABG pH ABG pO2 ABG HCO3 ABG O2 Saturation ABG Base Excess ABG Hemoglobin Sodium Potassium Chloride Carbon Dioxide BUN Creatinine Glucose POC Glucose 133 H 147 H 141 H Lactic Acid Calcium Phosphorus Magnesium Ferritin AST ALT Lactate Dehydrogenase Total Creatine Kinase CK-MB (CK-2) Troponin T C-Reactive Protein NT-Pro-B Natriuret Pep Total Protein Albumin Triglycerides HDL Cholesterol Urine WBC (Auto) Urine Creatinine Ur Creatinine 24 Hour Urine Chloride Urine Total Protein Crossmatch 03/02/20 03/02/20 03/02/20 08:41 08:41 11:03 WBC RBC 1.78 L Hgb 5.4 L* Hct 16.0 L* D RDW 16.5 H Plt Count 130 L Lymph % (Auto) Gordon % (Auto) 11.8 H Eos % (Auto) Gordon # 1.0 H Seg Neutrophils % Seg Neuts % (Manual) Lymphocytes % (Manual) Monocytes % (Manual) Basophils % (Manual) Seg Neutrophils # Seg Neutrophils # Man Lymphocytes # (Manual) Monocytes # (Manual) Basophils # (Manual) PT INR D-Dimer Heparin Anti-Xa Level ABG pH ABG pO2 ABG HCO3 ABG O2 Saturation ABG Base Excess ABG Hemoglobin Sodium 146 H Potassium 3.0 L D Chloride 118.9 H Carbon Dioxide 17 L D BUN 80 H Creatinine 3.4 H Glucose 103 H POC Glucose Lactic Acid Calcium 5.8 L* D Phosphorus 1.20 L Magnesium Ferritin AST ALT Lactate Dehydrogenase Total Creatine Kinase CK-MB (CK-2) Troponin T C-Reactive Protein NT-Pro-B Natriuret Pep Total Protein Albumin Triglycerides HDL Cholesterol Urine WBC (Auto) Urine Creatinine 89.1 H Ur Creatinine 24 Hour 0.2 L Urine Chloride Urine Total Protein Crossmatch 0903/02/20 03/02/20 11:43 14:30 16:32 WBC RBC Hgb Hct RDW Plt Count Lymph % (Auto) Gordon % (Auto) Eos % (Auto) Gordon # Seg Neutrophils % Seg Neuts % (Manual) Lymphocytes % (Manual) Monocytes % (Manual) Basophils % (Manual) Seg Neutrophils # Seg Neutrophils # Man Lymphocytes # (Manual) Monocytes # (Manual) Basophils # (Manual) PT INR D-Dimer Heparin Anti-Xa Level ABG pH ABG pO2 ABG HCO3 ABG O2 Saturation ABG Base Excess ABG Hemoglobin Sodium Potassium Chloride Carbon Dioxide BUN Creatinine Glucose POC Glucose 141 H 139 H Lactic Acid Calcium Phosphorus Magnesium Ferritin AST ALT Lactate Dehydrogenase Total Creatine Kinase CK-MB (CK-2) Troponin T C-Reactive Protein NT-Pro-B Natriuret Pep Total Protein Albumin Triglycerides HDL Cholesterol Urine WBC (Auto) Urine Creatinine Ur Creatinine 24 Hour Urine Chloride Urine Total Protein Crossmatch See Detail 03/02/20 03/03/20 03/03/20 23:39 05:59 06:46 WBC 11.3 H RBC 3.10 L Hgb 9.1 L D Hct 26.9 L D RDW 16.7 H Plt Count Lymph % (Auto) Gordon % (Auto) 10.2 H Eos % (Auto) Gordon # 1.2 H Seg Neutrophils % 70.7 H Seg Neuts % (Manual) Lymphocytes % (Manual) Monocytes % (Manual) Basophils % (Manual) Seg Neutrophils # 8.0 H Seg Neutrophils # Man Lymphocytes # (Manual) Monocytes # (Manual) Basophils # (Manual) PT INR D-Dimer Heparin Anti-Xa Level ABG pH ABG pO2 ABG HCO3 ABG O2 Saturation ABG Base Excess ABG Hemoglobin Sodium Potassium Chloride Carbon Dioxide BUN Creatinine Glucose POC Glucose 110 H 117 H Lactic Acid Calcium Phosphorus Magnesium Ferritin AST ALT Lactate Dehydrogenase Total Creatine Kinase CK-MB (CK-2) Troponin T C-Reactive Protein NT-Pro-B Natriuret Pep Total Protein Albumin Triglycerides HDL Cholesterol Urine WBC (Auto) Urine Creatinine Ur Creatinine 24 Hour Urine Chloride Urine Total Protein Crossmatch 03/03/20 03/03/20 03/03/20 06:46 06:46 12:21 WBC RBC Hgb Hct RDW Plt Count Lymph % (Auto) Gordon % (Auto) Eos % (Auto) Gordon # Seg Neutrophils % Seg Neuts % (Manual) Lymphocytes % (Manual) Monocytes % (Manual) Basophils % (Manual) Seg Neutrophils # Seg Neutrophils # Man Lymphocytes # (Manual) Monocytes # (Manual) Basophils # (Manual) PT INR D-Dimer Heparin Anti-Xa Level ABG pH ABG pO2 ABG HCO3 ABG O2 Saturation ABG Base Excess ABG Hemoglobin Sodium Potassium Chloride 107.9 H Carbon Dioxide 19 L BUN 103 H Creatinine 4.7 H Glucose 106 H POC Glucose 114 H Lactic Acid Calcium 7.8 L D Phosphorus Magnesium 1.60 L Ferritin AST ALT Lactate Dehydrogenase Total Creatine Kinase CK-MB (CK-2) Troponin T C-Reactive Protein NT-Pro-B Natriuret Pep Total Protein Albumin Triglycerides HDL Cholesterol Urine WBC (Auto) Urine Creatinine Ur Creatinine 24 Hour Urine Chloride Urine Total Protein Crossmatch 03/04/20 03/04/20 03/04/20 11:33 11:33 12:16 WBC 12.7 H RBC 2.94 L Hgb 8.5 L Hct 26.0 L RDW 17.0 H Plt Count Lymph % (Auto) Gordon % (Auto) 9.7 H Eos % (Auto) Gordon # 1.2 H Seg Neutrophils % 71.5 H Seg Neuts % (Manual) Lymphocytes % (Manual) Monocytes % (Manual) Basophils % (Manual) Seg Neutrophils # 9.1 H Seg Neutrophils # Man Lymphocytes # (Manual) Monocytes # (Manual) Basophils # (Manual) PT INR D-Dimer Heparin Anti-Xa Level ABG pH ABG pO2 ABG HCO3 ABG O2 Saturation ABG Base Excess ABG Hemoglobin Sodium Potassium Chloride 107.2 H Carbon Dioxide 20 L BUN 107 H Creatinine 5.2 H Glucose 111 H POC Glucose 117 H Lactic Acid Calcium 8.1 L Phosphorus Magnesium Ferritin AST ALT Lactate Dehydrogenase Total Creatine Kinase CK-MB (CK-2) Troponin T C-Reactive Protein NT-Pro-B Natriuret Pep Total Protein Albumin Triglycerides HDL Cholesterol Urine WBC (Auto) Urine Creatinine Ur Creatinine 24 Hour Urine Chloride Urine Total Protein Crossmatch 03/04/20 03/04/20 03/05/20 18:16 23:56 06:40 WBC RBC Hgb Hct RDW Plt Count Lymph % (Auto) Gordon % (Auto) Eos % (Auto) Gordon # Seg Neutrophils % Seg Neuts % (Manual) Lymphocytes % (Manual) Monocytes % (Manual) Basophils % (Manual) Seg Neutrophils # Seg Neutrophils # Man Lymphocytes # (Manual) Monocytes # (Manual) Basophils # (Manual) PT INR D-Dimer Heparin Anti-Xa Level ABG pH ABG pO2 ABG HCO3 ABG O2 Saturation ABG Base Excess ABG Hemoglobin Sodium Potassium Chloride Carbon Dioxide BUN Creatinine Glucose POC Glucose 119 H 112 H 111 H Lactic Acid Calcium Phosphorus Magnesium Ferritin AST ALT Lactate Dehydrogenase Total Creatine Kinase CK-MB (CK-2) Troponin T C-Reactive Protein NT-Pro-B Natriuret Pep Total Protein Albumin Triglycerides HDL Cholesterol Urine WBC (Auto) Urine Creatinine Ur Creatinine 24 Hour Urine Chloride Urine Total Protein Crossmatch 03/05/20 03/05/20 07:01 07:01 WBC 12.8 H RBC 2.75 L Hgb 7.9 L Hct 23.8 L RDW 17.1 H Plt Count Lymph % (Auto) Gordon % (Auto) Eos % (Auto) Gordon # Seg Neutrophils % Seg Neuts % (Manual) 82.0 H Lymphocytes % (Manual) 8.0 L Monocytes % (Manual) Basophils % (Manual) 2.0 H Seg Neutrophils # Seg Neutrophils # Man 10.5 H Lymphocytes # (Manual) 1.0 L Monocytes # (Manual) Basophils # (Manual) 0.3 H PT INR D-Dimer Heparin Anti-Xa Level ABG pH ABG pO2 ABG HCO3 ABG O2 Saturation ABG Base Excess ABG Hemoglobin Sodium Potassium Chloride 111.3 H Carbon Dioxide 18 L BUN 107 H Creatinine 5.3 H Glucose 112 H POC Glucose Lactic Acid Calcium 8.0 L Phosphorus Magnesium Ferritin AST ALT Lactate Dehydrogenase Total Creatine Kinase CK-MB (CK-2) Troponin T C-Reactive Protein NT-Pro-B Natriuret Pep Total Protein Albumin Triglycerides HDL Cholesterol Urine WBC (Auto) Urine Creatinine Ur Creatinine 24 Hour Urine Chloride Urine Total Protein Crossmatch
--- NOTE | 2020-03-05 09:35 | Progress Note ---
Assessment and Plan Assessment and plan: --Severe anemia; hemoglobin of 5.4-9.1-7.9 Transfused 2 units of PRBC Hemoglobin improved to 9.1 Closely monitor H&H --Hypokalemia/hypophosphatemia/hypocalcemia Replenished with potassium phosphate, calcium Levels within normal limits today --Hypomagnesemia; replenish with 2 g of mag sulfate Monitor levels --Dysphagia; oropharyngeal Oropharyngeal dysphagia per speech therapist Patient needs PEG placement However patient's adult friend Ms. Marquez Who expressed that Mr. Bernardo Joseph would not want to have PEG tube. Does not want the PEG tube placement GI consult was discontinued --Sepsis; right pneumonia/HCAP s/p Vanco and cefepime , Monitor off antibiotics ID following follow cultures, supportive care ID,Pulm following --New episodes of fever; Patient already completed course of antibiotics for sepsis/pneumonia Check new set of blood cultures, monitor off antibiotics ID following --Bilateral pneumonia; present on initial admission As noted above. COVID markers elevated Ferritin 1191. Ddmer >10,000. CRP 18. LDH 381. Recent sputum cx with PMDR Proteus, MRSA. H flu. MRSA PCR positive. --elevated D-dimers More than 10,000, V/Q scan low probability for PE lower extremity venous Doppler,neg DVT dc heparin Drip, prophylactic anticoagulation --Rhabdomyolysis; Continue IV fluids, input output monitoring, CK levels trending down CK [id number] We will monitor renal function --COVID-19 test negative x2 during last admission Test negative during this admission 02/18/2020 However patient has very high levels of inflammatory markers ID consulted, trend the markers --Acute resp failure with hypoxia/extubated 02/19/2020 on nasal cannula oxygen, saturating well Very high ddimer suspect PE post COVID. --Acute kidney injury on chronic kidney disease Secondary to ATN, gentle hydration Avoid nephrotoxins, monitor renal function Nephrology following -- DVT prophylaxis SCD, Heparin ,renal dose PT OT, DC planning 02/24/2020. Patient extubated yesterday and tolerated nasal cannula. Patient's baseline creatinine appears to be 1.6-1.8 2014. Continue IV fluid hydration per nephrology recommendations. CK level was elevated. Therefore, etiology may be from acute kidney injury and rhabdomyolysis. Renal ultrasound revealed chronic medical renal disease and no hydronephrosis. Urine eosinophils negative. Awaiting placement. I discussed the case with case management. 02/25/2020. Patient currently with nasogastric tube and tube feedings at 45 cc an hour. Speech evaluation for swallowing. Patient currently with nasal cannula 3 L O2. Creatinine remains elevated. Recheck BMP. Continue free water flushes 200 ml q 4 hrs via NGT for hypernatremia. Urine eosinophils negative, calculated protein to cr ratio 1 g, monitor. Continue vancomycin and cefepime per ID recommendations. 02/26/2020. Speech therapy evaluation reports oropharyngeal dysphagia. Patient will likely need PEG tube placement. Attempted to call family renetta Marquez to discuss possible PEG placement, no answer. Patient with adequate urine output but creatinine still not improved significantly. Albumin 25% 100 mls q6H X 3 doses. Continue per nephrology recommendations. Antibiotics discontinued yesterday per ID recommendations. 02/27/2020. Speech therapy evaluation reports oropharyngeal dysphagia. Patient will likely need PEG tube placement. Attempted to call family Mica Marquez to discuss possible PEG placement, no answer. We will need case management for assistance. Continue per ID and nephrology recommendations. 02/27; follow speech and swallow evaluation, possible PEG placement, consult GI once family is agreeable, unable to reach family 02/28; patient needs PEG placement, unable to contact real family members, I talked to [person to contact /next of kin as per medical records] Ms.Sparks Nino Who agreed for DNR status, is not the real family member per case management/patient telephone service representative . Will check with senior care and try to find next of kin/family member for consent for PEG placement as well as consent for DNR/hospice status. 03/01; family and ethics committee meeting, to decide CODE STATUS and PEG placement 03/02; patient has multiple electrolyte abnormalities, severe anemia, 2 units PRBC transfusion now, poor prognosis, DNR status Considering hospice 03/03; electrolytes improved, received 2 units PRBC yesterday, Hb 9.1, patient continues to be critically ill, hypomagnesemia gave 2 g IV mag sulfate, follow electrolytes 7.9 Hospitalist Physical - Constitutional Vitals: Temp Pulse Resp BP Pulse Ox 97.6 F 88 18 87/62 96 03/05/20 08:00 03/05/20 08:10 03/05/20 08:10 03/05/20 08:00 03/05/20 08:19 General appearance: Present: mild distress, well-nourished, other (confused, chronically ill looking, noncommunicative) HEART Score - HEART Score Troponin: Troponin T 0.573 ng/mL (0.00-0.029) H* D 02/20/20 17:20 Results - Labs CBC & Chem 7: 03/05/20 07:01 03/05/20 07:01 Labs: Laboratory Last Values WBC 12.8 K/mm3 (4.5-11.0) H 03/05/20 07:01 RBC 2.75 M/mm3 (3.65-5.03) L 03/05/20 07:01 Hgb 7.9 gm/dl (11.8-15.2) L 03/05/20 07:01 Hct 23.8 % (35.5-45.6) L 03/05/20 07:01 MCV 87 fl (84-94) 03/05/20 07:01 MCH 29 pg (28-32) 03/05/20 07:01 MCHC 33 % (32-34) 03/05/20 07:01 RDW 17.1 % (13.2-15.2) H 03/05/20 07:01 Plt Count 359 K/mm3 (140-440) 03/05/20 07:01 Lymph % (Auto) 16.9 % (13.4-35.0) 03/04/20 11:33 Coffee % (Auto) Pediatric Acute Care Unit Nurse 03/05/20 07:01 Eos % (Auto) 1.4 % (0.0-4.3) 03/04/20 11:33 Baso % (Auto) 0.5 % (0.0-1.8) 03/04/20 11:33 Lymph # 2.1 K/mm3 (1.2-5.4) 03/04/20 11:33 Coffee # 1.2 K/mm3 (0.0-0.8) H 03/04/20 11:33 Eos # 0.2 K/mm3 (0.0-0.4) 03/04/20 11:33 Baso # 0.1 K/mm3 (0.0-0.1) 03/04/20 11:33 Add Manual Diff Complete 03/05/20 07:01 Total Counted 100 03/05/20 07:01 Seg Neutrophils % Pediatric Acute Care Unit Nurse 03/05/20 07:01 Seg Neuts % (Manual) 82.0 % (40.0-70.0) H 03/05/20 07:01 Band Neutrophils % 0 % 03/05/20 07:01 Lymphocytes % (Manual) 8.0 % (13.4-35.0) L 03/05/20 07:01 Reactive Lymphs % (Man) 0 % 03/05/20 07:01 Monocytes % (Manual) 6.0 % (0.0-7.3) 03/05/20 07:01 Eosinophils % (Manual) 2.0 % (0.0-4.3) 03/05/20 07:01 Basophils % (Manual) 2.0 % (0.0-1.8) H 03/05/20 07:01 Metamyelocytes % 0 % 03/05/20 07:01 Myelocytes % 0 % 03/05/20 07:01 Promyelocytes % 0 % 03/05/20 07:01 Blast Cells % 0 % 03/05/20 07:01 Nucleated RBC % Not Reportable 03/05/20 07:01 Seg Neutrophils # 9.1 K/mm3 (1.8-7.7) H 03/04/20 11:33 Seg Neutrophils # Man 10.5 K/mm3 (1.8-7.7) H 03/05/20 07:01 Band Neutrophils # 0.0 K/mm3 03/05/20 07:01 Lymphocytes # (Manual) 1.0 K/mm3 (1.2-5.4) L 03/05/20 07:01 Abs React Lymphs (Man) 0.0 K/mm3 03/05/20 07:01 Monocytes # (Manual) 0.8 K/mm3 (0.0-0.8) 03/05/20 07:01 Eosinophils # (Manual) 0.3 K/mm3 (0.0-0.4) 03/05/20 07:01 Basophils # (Manual) 0.3 K/mm3 (0.0-0.1) H 03/05/20 07:01 Metamyelocytes # 0.0 K/mm3 03/05/20 07:01 Myelocytes # 0.0 K/mm3 03/05/20 07:01 Promyelocytes # 0.0 K/mm3 03/05/20 07:01 Blast Cells # 0.0 K/mm3 03/05/20 07:01 WBC Morphology Not Reportable 03/05/20 07:01 Hypersegmented Neuts Not Reportable 03/05/20 07:01 Hyposegmented Neuts Not Reportable 03/05/20 07:01 Hypogranular Neuts Not Reportable 03/05/20 07:01 Smudge Cells Not Reportable 03/05/20 07:01 Toxic Granulation Not Reportable 03/05/20 07:01 Toxic Vacuolation Not Reportable 03/05/20 07:01 Dohle Bodies Not Reportable 03/05/20 07:01 Pelger-Huet Anomaly Not Reportable 03/05/20 07:01 Krys Rods Not Reportable 03/05/20 07:01 Platelet Estimate Consistent w auto 03/05/20 07:01 Clumped Platelets Rare 03/05/20 07:01 Plt Clumps, EDTA Not Reportable 03/05/20 07:01 Large Platelets Not Reportable 03/05/20 07:01 Giant Platelets Not Reportable 03/05/20 07:01 Platelet Satelliting Not Reportable 03/05/20 07:01 Plt Morphology Comment Not Reportable 03/05/20 07:01 RBC Morphology Not Reportable 03/05/20 07:01 Dimorphic RBCs Not Reportable 03/05/20 07:01 Polychromasia Not Reportable 03/05/20 07:01 Hypochromasia Not Reportable 03/05/20 07:01 Poikilocytosis 1+ 03/05/20 07:01 Anisocytosis 1+ 03/05/20 07:01 Microcytosis Not Reportable 03/05/20 07:01 Macrocytosis Not Reportable 03/05/20 07:01 Spherocytes Not Reportable 03/05/20 07:01 Pappenheimer Bodies Not Reportable 03/05/20 07:01 Sickle Cells Not Reportable 03/05/20 07:01 Target Cells Not Reportable 03/05/20 07:01 Tear Drop Cells Not Reportable 03/05/20 07:01 Ovalocytes Few 03/05/20 07:01 Helmet Cells Not Reportable 03/05/20 07:01 [place] Bodies Not Reportable 03/05/20 07:01 R[place] Rings Not Reportable 03/05/20 07:01 [place] Cells Not Reportable 03/05/20 07:01 Bite Cells Not Reportable 03/05/20 07:01 Crenated Cell Not Reportable 03/05/20 07:01 Elliptocytes Not Reportable 03/05/20 07:01 Acanthocytes (Spur) Not Reportable 03/05/20 07:01 Rouleaux Not Reportable 03/05/20 07:01 Hemoglobin C Crystals Not Reportable 03/05/20 07:01 Schistocytes Not Reportable 03/05/20 07:01 Malaria parasites Not Reportable 03/05/20 07:01 Keron Bodies Not Reportable 03/05/20 07:01 Hem Pathologist Commnt No 03/05/20 07:01 PT 18.6 Sec. (12.2-14.9) H 02/19/20 03:20 INR 1.53 (0.87-1.13) H 02/19/20 03:20 APTT 26.8 Sec. (24.2-36.6) 02/17/20 16:28 D-Dimer 1327.30 ng/mlDDU (0-234) H 02/20/20 17:20 Heparin Anti-Xa Level < 0.10 U.I./ml (0.3-0.7) L 02/21/20 15:41 ABG pH 7.355 pH Units (7.350-7.450) 02/19/20 05:08 ABG pCO2 27.3 mm Hg 02/19/20 05:08 ABG pO2 168.2 mm Hg (80.0-90.0) H 02/19/20 05:08 ABG HCO3 14.9 mmol/L (20.0-26.0) L 02/19/20 05:08 ABG O2 Saturation 99.0 % (95.0-99.0) 02/19/20 05:08 ABG O2 Content 11.7 (0.0-44) 02/19/20 05:08 ABG Base Excess -9.5 mmol/L (-2.0-3.0) L 02/19/20 05:08 ABG Hemoglobin 8.3 gm/dl (14.0-18.0) L 02/19/20 05:08 ABG Carboxyhemoglobin 1.2 % (0.0-5.0) 02/19/20 05:08 ABG Methemoglobin 0.7 % (0.0-1.5) 02/19/20 05:08 Oxyhemoglobin 97.2 % (95.0-99.0) 02/19/20 05:08 FiO2 40 % 02/19/20 05:08 Sodium 144 mmol/L (137-145) 03/05/20 07:01 Potassium 4.2 mmol/L (3.6-5.0) 03/05/20 07:01 Chloride 111.3 mmol/L (98-107) H 03/05/20 07:01 Carbon Dioxide 18 mmol/L (22-30) L 03/05/20 07:01 Anion Gap 19 mmol/L 03/05/20 07:01 BUN 107 mg/dL (9-20) H 03/05/20 07:01 Creatinine 5.3 mg/dL (0.8-1.3) H 03/05/20 07:01 Estimated GFR 13 ml/min 03/05/20 07:01 BUN/Creatinine Ratio 20 % 03/05/20 07:01 Glucose 112 mg/dL (75-100) H 03/05/20 07:01 POC Glucose 111 (70-105) H 03/05/20 06:40 Lactic Acid 1.90 mmol/L (0.7-2.0) 02/17/20 22:56 Calcium 8.0 mg/dL (8.4-10.2) L 03/05/20 07:01 Phosphorus 3.20 mg/dL (2.5-4.5) 03/05/20 07:01 Magnesium 1.90 mg/dL (1.7-2.3) 03/04/20 11:33 Ferritin 1191.0 ng/mL (30.0-300.0) H 02/17/20 16:28 Total Bilirubin 0.50 mg/dL (0.1-1.2) 02/17/20 16:28 AST 65 units/L (5-40) H 02/17/20 16:28 ALT 81 units/L (7-56) H 02/17/20 16:28 Alkaline Phosphatase 101 units/L (35-129) 02/17/20 16:28 Lactate Dehydrogenase 381 units/L (91-180) H 02/17/20 16:28 Total Creatine Kinase 362 units/L (55-170) H 02/24/20 05:55 CK-MB (CK-2) 78.0 ng/mL (0.0-4.0) H 02/18/20 10:10 CK-MB (CK-2) Rel Index 1.3 (0-4) 02/18/20 10:10 Troponin T 0.573 ng/mL (0.00-0.029) H* D 02/20/20 17:20 C-Reactive Protein 18.20 mg/dL (0.00-1.30) H 02/17/20 16:28 NT-Pro-B Natriuret Pep 1980 pg/mL (0-900) H 02/17/20 16:28 Total Protein 5.4 g/dL (6.3-8.2) L 02/17/20 16:28 Albumin 2.3 g/dL (3.9-5) L 02/17/20 16:28 Albumin/Globulin Ratio 0.7 % 02/17/20 16:28 Triglycerides 164 mg/dL (2-149) H 02/18/20 10:10 Cholesterol 133 mg/dL (50-199) 02/18/20 10:10 LDL Cholesterol Direct 71 mg/dL (50-130) 02/18/20 10:10 HDL Cholesterol 38 mg/dL (40-59) L 02/18/20 10:10 Cholesterol/HDL Ratio 3.50 % 02/18/20 10:10 Procalcitonin 8.38 ng/mL (<0.15) 02/28/20 14:43 TSH 3.490 mlU/mL (0.270-4.200) 02/17/20 16:28 Urine Color Yellow (Yellow) 02/17/20 Unknown Urine Turbidity Slightly-cloudy (Clear) 02/17/20 Unknown Urine pH 5.0 (5.0-7.0) 02/17/20 Unknown Ur Specific [place] 1.010 (1.003-1.030) 02/17/20 Unknown Urine Protein 30 mg/dl mg/dL (Negative) 02/17/20 Unknown Urine Glucose (UA) Neg mg/dL (Negative) 02/17/20 Unknown Urine Ketones Neg mg/dL (Negative) 02/17/20 Unknown Urine Blood Mod (Negative) 02/17/20 Unknown Urine Nitrite Neg (Negative) 02/17/20 Unknown Urine Bilirubin Neg (Negative) 02/17/20 Unknown Urine Urobilinogen < 2.0 mg/dL (<2.0) 02/17/20 Unknown Ur Leukocyte Esterase Mod (Negative) 02/17/20 Unknown Urine WBC (Auto) 17.0 /HPF (0.0-6.0) H 02/17/20 Unknown Urine RBC (Auto) 17.0 /HPF (0.0-6.0) 02/17/20 Unknown U Epithel Cells (Auto) 4.0 /HPF (0-13.0) 02/17/20 Unknown Urine Bacteria (Auto) 1+ /HPF (Negative) 02/17/20 Unknown Urine Yeast (Budding) 2+ /HPF 02/17/20 Unknown Urine Eosinophils None seen (None Seen) 02/18/20 17:40 Urine Total Volume 200 ml 03/02/20 11:03 Urine Creatinine 89.1 mg/dL (0.1-20.0) H 03/02/20 11:03 Ur Creatinine 24 Hour 0.2 (0.8-2.8) L 03/02/20 11:03 Urine Microalbumin 5.9 mg/dL (0.1-34.0) 02/18/20 17:40 Microalb/Creat Ratio 167.6 ug/mg 02/18/20 17:40 Urine Sodium 104 mmol/L 02/18/20 17:40 Urine Chloride 81.0 mmolL (110-250) L 02/18/20 17:40 Urine Total Protein 38 mg/dL (5-11.8) H 02/18/20 17:40 Nasal Screen MRSA (PCR) Positive (Negative) 02/18/20 17:40 Random Vancomycin 15.6 ug/mL (0-40.0) 02/23/20 05:36 Coronavirus (PCR) Negative (Negative) 02/23/20 09:59 Blood Type B NEGATIVE 03/02/20 14:30 Antibody Screen Negative 03/02/20 14:30 Crossmatch See Detail 03/02/20 14:30 Microbiology: Microbiology 02/28/20 14:43 Peripheral/Venous Blood Culture - Final NO GROWTH AFTER 5 DAYS 02/28/20 14:43 Peripheral/Venous Blood Culture - Final NO GROWTH AFTER 5 DAYS - Diagnostic Impressions Diagnostic Impressions: Echocardiogram 02/19/20 15:05 Transthoracic Echocardiogram Indication: NSTEMI BP: 95/50 HR: 107 Conclusions *Global left ventricular systolic function is at the lower limits of normal. *The estimated ejection fraction is 45-50%. *Abnormal left ventricular diastolic filling is observed, consistent with impaired relaxation. *There is evidence of mild pulmonary hypertension. *There is no pericardial effusion. Findings Left Ventricle: The left ventricular chamber size is normal. Global left ventricular systolic function is at the lower limits of normal. The estimated ejection fraction is 45-50%. Abnormal left ventricular diastolic filling is observed, consistent with impaired relaxation. Left Atrium: The left atrial chamber size is normal. Right Ventricle: The right ventricular cavity size is normal. Right Atrium: The right atrial cavity size is normal. Aortic Valve: Mild aortic leaflet calcification is visualized. There is trace of aortic regurgitation. Mitral Valve: Mild mitral leaflet calcification is visualized. There is no evidence of mitral regurgitation. Tricuspid Valve: The tricuspid valve leaflets are normal. There is mild tricuspid regurgitation. The right ventricular systolic pressure is calculated at 40 mmHg. There is evidence of mild pulmonary hypertension. Pericardium: There is no pericardial effusion. Aorta: The aorta appears normal. Venous: The inferior vena cava appears normal. Measurements Chambers 2D Name Value Normal Range IVSd (2D) 1.09 cm (0.6 - 1.1) LVPWd (2D) 1 cm (0.6 - 1.1) LVIDd (2D) 3.55 cm (3.7 - 5.6) LVIDs (2D) 3 cm (2 - 3.8) LV FS (2D) 15.53 % - Ao root diameter (2D) 3.26 cm (2 - 3.7) Volumes/Mass Name Value Normal Range LA ESV SP 4CH (A/L) 17.3 ml - LA ESV SP 2CH (A/L) 18.3 ml - LA ESV BP (A/L) 19.14 ml - LA ESV BP (A/L) index 9.38 ml/m2 - LA ESV SP 4CH (MOD) 15.02 ml - LA ESV SP 2CH (MOD) 17.03 ml - LA ESV BP (MOD) 17.14 ml - LA ESV BP (MOD) index 8.4 ml/m2 - Diastolic/Systolic Function Name Value Normal Range MV E-wave Vmax 0.56 m/sec - MV deceleration time 197.94 msec - MV A-wave Vmax 1.36 m/sec - MV E:A ratio 0.41 ratio - Aortic Valve Name Value Normal Range AV Vmax 2.3 m/sec - AV VTI 33.77 cm - AV peak gradient 22.91 mmHg - AV mean gradient 12.27 mmHg - LVOT diameter 2.08 cm - LVOT Vmax 0.84 m/sec - LVOT VTI 14.82 cm - LVOT peak gradient 2.82 mmHg - LVOT mean gradient 2 mmHg - SV LVOT 50.44 ml - KALYAN (continuity Vmax) 1.24 cm2 - KALYAN (continuity VTI) 1.49 cm2 - AR PHT 460.84 msec - AR peak gradient 52.84 mmHg - Tricuspid Valve Name Value Normal Range TR Vmax 3.03 m/sec - TR peak gradient 37 mmHg - RAP 3 mmHg - RVSP 40 mmHg - Pulmonic Valve/Qp:Qs Name Value Normal Range PV acceleration time 106.57 msec - Yin/IV: Voiding Method Indwelling Catheter IV Catheter Type [Right INT / Saline Lock Forearm] IV Catheter Type [Right Hand] INT / Saline Lock IV Catheter Type [Left Upper INT / Saline Lock arm] IV Catheter Type [Right Triple Lumen Cath Femoral] IV Catheter Type [Right INT / Saline Lock Antecubital] Active Medications - Current Medications Current Medications: Generic Name Dose Route Start Last Admin Trade Name Freq PRN Reason Stop Dose Admin Acetaminophen 650 mg 03/02/20 22:04 03/02/20 22:24 Tylenol PO 650 mg Q6H PRN Administration Non Cardiac Pain or Temp>100.5 Albuterol 2.5 mg 02/26/20 09:18 Proventil IH Q4HRT PRN Shortness Of Breath Albuterol/Ipratropium 1 ampul 02/26/20 14:00 03/05/20 07:52 Duoneb *Not For Prn Use* IH 1 ampul TIDRT LOS Administration Lipase/Protease/Amylase 1 each 02/21/20 12:12 Pancrecristiane Simon 10,500 Unit FEEDTUBE PRN PRN For Clogged Feeding Tube Aspirin 81 mg 02/18/20 10:00 03/04/20 10:06 Baby Aspirin PO 81 mg DAILY LOS Administration Atorvastatin Calcium 20 mg 02/18/20 22:00 03/04/20 22:13 Lipitor PO 20 mg QHS LOS Administration Calcitriol 1 mcg 03/02/20 12:00 03/04/20 10:04 Rocaltrol PO 1 mcg QDAY LOS Administration Calcium Carbonate/Glycine 1,250 mg 03/02/20 22:00 03/04/20 22:13 Calcium Carbonate FEEDTUBE 1,250 mg BID LOS Administration Dextrose 50 ml 02/18/20 12:55 D50w (25gm) Syringe IV Q30MIN PRN Hypoglycemia Protocol Docusate Sodium 100 mg 02/20/20 12:00 03/04/20 22:13 Colace PO 100 mg BID LOS Administration Epoetin Vadim 10,000 unit 03/02/20 12:00 03/02/20 16:33 Procrit IV 10,000 unit Fr LOS Administration Heparin Sodium (Porcine) 5,000 unit 02/24/20 22:00 03/04/20 22:13 Heparin SUB-Q 5,000 unit Q12HR LOS Administration Hydrophilic Ointment 1 applic 02/17/20 15:12 Vaseline Lip Therapy TP Q2HR PRN Dry Lips Sodium Chloride 1,000 mls @ 125 mls/hr 03/01/20 04:15 03/05/20 03:10 Nacl 0.9% 1000 Ml IV 125 mls/hr DIRECT LOS Administration Meropenem 500 mg in 50 mls @ 50 mls/hr 03/02/20 14:00 03/04/20 22:12 Merrem/Ns 500 Mg/50 Ml IV 50 mls/hr Q12HR LOS Administration Insulin Human Regular 0 unit 02/18/20 13:00 03/05/20 06:45 Humulin R SUB-Q Not Given Q6HR LOS Protocol Magnesium Hydroxide 30 ml 02/18/20 02:31 Milk Of Magnesia PO Q4H PRN Constipation Multi-Ingred Cream/Lotion/Oil/Oint 1 applic 02/17/20 15:12 02/19/20 04:25 Artificial Tears Ophth Oint OU 1 applic Q4HR PRN Administration Dry Eye(s) Simple Syrup 15 ml 02/21/20 12:12 Simple Syrup FEEDTUBE PRN PRN Hypoglycemia Simple Syrup 30 ml 02/21/20 12:12 Simple Syrup FEEDTUBE PRN PRN Hypoglycemia Sodium Bicarbonate 325 mg 02/21/20 12:12 Sodium Bicarbonate FEEDTUBE PRN PRN For Clogged Feeding Tube Sodium Chloride 10 ml 02/18/20 10:00 03/04/20 22:13 Sodium Chloride Flush Syringe 10 Ml IV 10 ml BID LOS Administration Sodium Chloride 10 ml 02/18/20 02:31 Sodium Chloride Flush Syringe 10 Ml IV PRN PRN LINE FLUSH Nutrition/Malnutrition Assess - Dietary Evaluation Nutrition/Malnutrition Findings: Nutrition Notes Start: 02/18/20 10:34 Freq: Status: Active Protocol: Document 02/29/20 10:53 [email or web address] (Rec: 02/29/20 12:00 [email or web address]) Co-Sign 02/29/20 10:53 LM Nutrition Notes Initial or Follow up Reassessment Current Diagnosis CKD(stage I-IV),Diabetes, Sepsis,Hypertension, Hyperlipidemia Other Pertinent Diagnosis UTI, Dementia Current Diet Nepro 1.8 at 45ml/hr Labs/Tests Glucose 147 Cr 3.4 BUN 89 Pertinent Medications Reviewed Height 6 ft Weight 87.2 kg B[place]um Body Weight (kg) 80.90 BMI 26.0 Subjective/Other Information Follow-up on TF and Bello administration. Pt is at goal rate of 45 mL/hr; flush 200 mL q4hr. Nurse reports that pt is tolerating TF well. Nurse has not seen Bello and thus has not administered the supplement. Pt was extubated. Percent of energy/protein needs met: 98%/100% Burn Absent Trauma Absent GI Symptoms None Skin Integrity/Comment Multiple pressure ulcers Current % PO Negligible Minimum of two criteria No physical signs of malnutrition #2 Nutrition Diagnosis Increased nutrient needs ( specify in comment below) Diagnosis Progress(for reassessment Continues documentation) #1 Nutrition Diagnosis Inadequate oral intake Diagnosis Progress(for reassessment Continues documentation) Is patient on ventilator? No Is Patient Ambulatory and/or Out of Bed No REE-([facility]-confined to bed) 1979.156 Calculation Used for Recommendations [facility] Additional Notes PRO needs: 69 - 130 g (0.8 - 1 .5 g/kg) Fluid needs: 1 mL/kcal Nutrition Intervention Change Diet Order: Continue TF Nutrition Support: Nepro at 45ml/hr Flush at 200ml q4hr Kcal 1,944 Protein (gm) 87 Fluid (mL) 785 % RDI: 100 Add Supplement/Snack (indicate name/kcal Bello BID /protein ) Provides kCal: 190 Provides Protein (gm) 5 Goal #1 TF tolerance Goal #2 Meet 80% of energy and protein needs via TF. Goal #3 Pt will receive Bello BID Anticipated Discharge Needs: Unable to determine at this time. Follow-Up By: 03/06/20 Additional Comments Follow up for continued tolerance and Bello administration.
[2020-03-05] MEDS: CALCITRIOL 0.5 MCG CAP PO SCH (10:26)
[2020-03-05] MEDS: ASPIRIN 81 MG TAB CHEW PO SCH (10:27)
[2020-03-05] MEDS: DOCUSATE SODIUM 100 MG/10 ML ORAL LIQD PO SCH (10:27)
[2020-03-05] MEDS: HEPARIN 5,000 UNIT/1 ML VIAL SUB-Q SCH (10:27)
[2020-03-05] MEDS: CALCIUM CARBONATE 1250 MG/5 ML ORAL LIQD FEEDTUBE SCH (10:27)
--- NOTE | 2020-03-05 11:08 | Progress Note ---
Assessment and Plan Assessment: Acute hypoxic respiratory failure Septic Shock 2/2 PNA Bilateral PNA Acute Kidney Injury 2/2 ischemic ATN from septic shock, Rhabdo, on underlying CKD, r/o obstruction Elevated D-Dimers Plan: - Renal function reviewed, SCr level was 5.3 today with BUN level elevated and stable at 107, yesterday's SCr level was 5.2 - CK level was elevated so could have AMMY from contribution from Rhabdo as well - On NS@ 125 ml/hr - Renal ultrasound-chronic medical renal disease. No hydronephrosis - Urine eosinophils negative, calculated protein to cr ratio 1 g, monitor - Had recent COVID infection, last 2 tests were negative - Yin Catheter: Yes - Renally dose medications - Avoid nephrotoxins - Not candidate for HD due to poor prognosis - Family to decide about plan of care, LTACH vs SNF vs Hospice Subjective Date of service: 03/05/20 Principal diagnosis: Septic Shock Interval history: Patient seen lying in bed. Eyes closed. Does not follows commands. Will respond verbally to name with a sound only. Objective - Vital Signs Vital signs: Vital Signs - 12hr 03/04/20 03/05/20 03/05/20 23:38 04:12 08:00 Temperature 99.3 F 99.3 F 97.6 F Pulse Rate 52 L 100 H 100 H Pulse Rate [ Anterior Bilateral Throughout] Respiratory 20 20 22 Rate Respiratory Rate [Anterior Bilateral Throughout] Blood Pressure 93/46 99/64 Blood Pressure 87/62 [Right] O2 Sat by Pulse 99 96 100 Oximetry 03/05/20 03/05/20 08:10 08:19 Temperature Pulse Rate Pulse Rate [ 88 Anterior Bilateral Throughout] Respiratory Rate Respiratory 18 Rate [Anterior Bilateral Throughout] Blood Pressure Blood Pressure [Right] O2 Sat by Pulse 96 Oximetry - General Appearance General appearance: chronically ill EENT: ATNC Neck: no JVD Respiratory: Present: Decreased Breath Sounds Cardiology: S1S2 Gastrointestinal: normoactive bowel sounds, other (Has NG tube feedings) Integumentary: warm and dry Neurologic: other (Eyes closed, does not follow commands) Musculoskeletal: joint swelling - Lab 03/05/20 07:01 03/05/20 07:01 Most recent lab results ABG pH 7.355 pH Units (7.350-7.450) 02/19/20 05:08 ABG pCO2 27.3 mm Hg 02/19/20 05:08 ABG pO2 168.2 mm Hg (80.0-90.0) H 02/19/20 05:08 ABG HCO3 14.9 mmol/L (20.0-26.0) L 02/19/20 05:08 ABG O2 Saturation 99.0 % (95.0-99.0) 02/19/20 05:08 Calcium 8.0 mg/dL (8.4-10.2) L 03/05/20 07:01 Phosphorus 3.20 mg/dL (2.5-4.5) 03/05/20 07:01 Magnesium 1.90 mg/dL (1.7-2.3) 03/04/20 11:33 Urine Creatinine 89.1 mg/dL (0.1-20.0) H 03/02/20 11:03 Urine Sodium 104 mmol/L 02/18/20 17:40 Urine Total Protein 38 mg/dL (5-11.8) H 02/18/20 17:40 Medications & Allergies - Medications Allergies/Adverse Reactions: Allergies No Known Allergies Allergy (Unverified 05/01/15 23:41) Home Medications: Home Medications Medication Instructions Recorded Confirmed Last Taken Type Acetaminophen [Acetaminophen TAB] 650 mg PO Q8H PRN 05/02/15 02/18/20 Unknown History Albuterol Sulfate [Albuterol 0.63% 0.63 mg IH Q6H PRN 05/02/15 02/18/20 Unknown History NEBS] Aspirin [Aspirin BABY CHEW TAB] 81 mg PO DAILY 05/02/15 02/18/20 05/01/15 History AtorvaSTATin [Lipitor] 20 mg PO QHS 05/02/15 02/18/20 05/01/15 History Docusate Sodium [Colace CAP] 100 mg PO BID 05/02/15 02/18/20 05/02/15 History Insulin Lispro [HumaLOG VIAL] See Protocol SUB-Q ACHS 05/02/15 02/18/20 05/01/15 History amLODIPine 5 mg PO DAILY 05/02/15 02/18/20 05/01/15 History Active Medications: Generic Name Dose Route Start Last Admin Trade Name Freq PRN Reason Stop Dose Admin Acetaminophen 650 mg 03/02/20 22:04 03/02/20 22:24 Tylenol PO 650 mg Q6H PRN Administration Non Cardiac Pain or Temp>100.5 Albuterol 2.5 mg 02/26/20 09:18 Proventil IH Q4HRT PRN Shortness Of Breath Albuterol/Ipratropium 1 ampul 02/26/20 14:00 03/05/20 07:52 Duoneb *Not For Prn Use* IH 1 ampul TIDRT LOS Administration Lipase/Protease/Amylase 1 each 02/21/20 12:12 Pancreazchica Simon 10,500 Unit FEEDTUBE PRN PRN For Clogged Feeding Tube Aspirin 81 mg 02/18/20 10:00 03/05/20 10:27 Baby Aspirin PO 81 mg DAILY LOS Administration Atorvastatin Calcium 20 mg 02/18/20 22:00 03/04/20 22:13 Lipitor PO 20 mg QHS LOS Administration Calcitriol 1 mcg 03/02/20 12:00 03/05/20 10:26 Rocaltrol PO 1 mcg QDAY LOS Administration Calcium Carbonate/Glycine 1,250 mg 03/02/20 22:00 03/05/20 10:27 Calcium Carbonate FEEDTUBE 1,250 mg BID LOS Administration Dextrose 50 ml 02/18/20 12:55 D50w (25gm) Syringe IV Q30MIN PRN Hypoglycemia Protocol Docusate Sodium 100 mg 02/20/20 12:00 03/05/20 10:27 Colace PO 100 mg BID LOS Administration Epoetin Vadim 10,000 unit 03/02/20 12:00 03/02/20 16:33 Procrit IV 10,000 unit Fr LOS Administration Heparin Sodium (Porcine) 5,000 unit 02/24/20 22:00 03/05/20 10:27 Heparin SUB-Q 5,000 unit Q12HR LOS Administration Hydrophilic Ointment 1 applic 02/17/20 15:12 Vaseline Lip Therapy TP Q2HR PRN Dry Lips Sodium Chloride 1,000 mls @ 125 mls/hr 03/01/20 04:15 03/05/20 03:10 Nacl 0.9% 1000 Ml IV 125 mls/hr DIRECT LOS Administration MEROPENEM/NS 1 GRAM/100 ML 1 gram in 100 mls @ 100 mls/hr 03/05/20 22:00 Merrem/Ns 1 Gram/100 Ml IV Q24H [facility] Insulin Human Regular 0 unit 02/18/20 13:00 03/05/20 06:45 Humulin R SUB-Q Not Given Q6HR LOS Protocol Magnesium Hydroxide 30 ml 02/18/20 02:31 Milk Of Magnesia PO Q4H PRN Constipation Multi-Ingred Cream/Lotion/Oil/Oint 1 applic 02/17/20 15:12 02/19/20 04:25 Artificial Tears Ophth Oint OU 1 applic Q4HR PRN Administration Dry Eye(s) Simple Syrup 15 ml 02/21/20 12:12 Simple Syrup FEEDTUBE PRN PRN Hypoglycemia Simple Syrup 30 ml 02/21/20 12:12 Simple Syrup FEEDTUBE PRN PRN Hypoglycemia Sodium Bicarbonate 325 mg 02/21/20 12:12 Sodium Bicarbonate FEEDTUBE PRN PRN For Clogged Feeding Tube Sodium Chloride 10 ml 02/18/20 10:00 03/05/20 10:29 Sodium Chloride Flush Syringe 10 Ml IV 10 ml BID LOS Administration Sodium Chloride 10 ml 02/18/20 02:31 Sodium Chloride Flush Syringe 10 Ml IV PRN PRN LINE FLUSH
--- NOTE | 2020-03-05 13:03 | Event Note ---
Date: 03/05/20 Patient is going to hospice per discussion w Dr Ludwig. Will sign off please call us with questions/
--- NOTE | 2020-03-05 14:50 | Discharge Summary ---
Providers - Providers Date of Admission: 02/17/20 22:42 Date of discharge: 03/05/20 Attending physician: NILAY MIR 02/17/20 15:12 Consult to Dietitian/Nutrition [CONS] Routine Physician Instructions: Reason For Exam: Reason for Consult: Evaluate nutritional intake 02/18/20 02:34 Consult to Dietitian/Nutrition [CONS] Routine Physician Instructions: Reason For Exam: Reason for Consult: Diet education 02/18/20 02:43 Consult to Physician [CONS] Routine Comment: Consulting Provider: ZEB ZAMORA Physician Instructions: Reason For Exam: SEPTIC SHOCK 02/18/20 03:15 Consult to Physician [CONS] Routine Comment: Consulting Provider: MARVIN HORN Physician Instructions: Reason For Exam: RESPIRATORY FAILURE.PNEUMONIA & H/O RECENT COVID 02/18/20 12:43 Consult to Physician [CONS] Urgent Comment: Consulting Provider: BRADY SHARPE Physician Instructions: Reason For Exam: Worsening renal failure, discharged 3 days ago 02/18/20 17:36 Consult to Wound/ET Nurse [CONS] Routine Reason For Exam: wound eval, multiple 02/20/20 19:12 Consult to PICC Line RN [CONS] Routine Reason For Exam: High alert medication Type Line:: PICC 02/25/20 10:16 Speech Therapy Evaluation and Treat [CONS] Routine Reason For Exam: swallow eval Primary care physician: ALLISON MCCAIN Hospitalization Reason for admission: Acute hypoxic respiratory failure requiring intubation Condition: Poor Pertinent studies: CT head Multiple chest x-rays Renal ultrasound Lower extremity venous Doppler VQ scan Echocardiogram Procedures: Intubation and mechanical ventilation Extubation Hospital course: 74-year-old -[place] male patient with history of CVA with left hemiparesis diabetes hypertension dyslipidemia dementia peripheral vascular disease penitentiary resident was admitted through emergency room with worsening shortness of breath acute respiratory failure requiring intubation and ventilatory supportPatient also noted to have bilateral pneumonia admitted to ICU symptomatically managed evaluated by evaluated by pulmonary critical GI infectious diseases nephrology and cardiology, Medications optimized, patient was weaned and extubated. Patient started having persistent fevers and severe sepsis , and severe bilateral pneumonia patient's condition significantly deteriorated. With poor prognosis Patient's only contact finger assembler is an adult friend Ms. Dias. Along with attending physician and ethics committee have reviewed patient's records and after much discussions about the goals of treatment in view of his poor prognosis critically ill patient continues to deteriorate and today multiple medical problems Decided DNR and hospice care. Patient had oropharyngeal dysphagia needs PEG placement, however patient's friend and the contact finger assembler Ms. Dias informed us that patient Mr. Peña will now want to have the PEG tube. Continued comfort care Patient was evaluated by hospice and recommended inpatient hospice facility transfer and management Patient is hemodynamically stable with multiple medical problems patient has poor and guarded prognosis . DNR status/palliative care Final diagnosis: --Acute resp failure with hypoxia/extubated 02/19/2020 on nasal cannula oxygen, saturating well Very high ddimer suspect PE post COVID. --Acute kidney injury on chronic kidney disease Secondary to ATN, gentle hydration Avoid nephrotoxins, monitor renal function Nephrology following --Sepsis; right pneumonia/HCAP s/p Vanco and cefepime , Monitor off antibiotics ID following --New episodes of fever; Patient already completed course of antibiotics for sepsis/pneumonia ID following --Bilateral pneumonia; present on initial admission As noted above. COVID markers elevated Ferritin 1191. Ddmer >10,000. CRP 18. LDH 381. Recent sputum cx with PMDR Proteus, MRSA. H flu. MRSA PCR positive. --elevated D-dimers More than 10,000, V/Q scan low probability for PE lower extremity venous Doppler,neg DVT dc heparin Drip, prophylactic anticoagulation --Rhabdomyolysis; Continue IV fluids, input output monitoring, CK levels trending down CK [id number] We will monitor renal function --Severe anemia; hemoglobin of 5.4-9.1-7.9 Transfused 2 units of PRBC Hemoglobin improved to 9.1 Closely monitor H&H --Hypokalemia/hypophosphatemia/hypocalcemia Replenished with potassium phosphate, calcium Levels within normal limits today --Hypomagnesemia; replenish with 2 g of mag sulfate Monitor levels --Dysphagia; oropharyngeal Per speech therapist Patient needs PEG placement However patient's adult friend Ms. Marquez expressed that Mr. Bernardo Joseph would not want to have PEG tube. --COVID-19 test negative x2 during last admission Test negative during this admission 02/18/2020 However patient has very high levels of inflammatory markers ID consulted, trend the markers -- DVT prophylaxis-- SCD, Heparin ,renal dose Patient is being transferred to inpatient hospice facility Disposition: [id number] ([facility]) Time spent for discharge: 35 min Core Measure Documentation - Palliative Care Palliative Care/ Comfort Measures: Hospice Care - Core Measures Any of the following diagnoses?: none Exam - Constitutional Vitals: Temp Pulse Resp BP Pulse Ox 97.7 F 104 H 22 100/56 95 03/05/20 11:18 03/05/20 11:18 03/05/20 11:18 03/05/20 11:18 03/05/20 11:18 General appearance: Present: mild distress, well-nourished, obese, other (Unresponsive) - EENT Eyes: Present: PERRL, EOM intact - Neck Neck: Present: supple, normal ROM - Respiratory Respiratory effort: normal Respiratory: bilateral: diminished, rhonchi, negative: rales, wheezing - Cardiovascular Rhythm: regular Heart Sounds: Present: S1 & S2 - Extremities Extremities: no ischemia Extremity abnormal: edema - Abdominal General gastrointestinal: Present: soft, non-tender, non-distended, normal bowel sounds - Integumentary Integumentary: Present: clear, warm - Musculoskeletal Musculoskeletal: generalized weakness - Psychiatric Psychiatric: other (Noncommunicative) - Neurologic Neurologic: other (Noncommunicative) Plan Activity: advance as tolerated, fall precautions, other (Bedbound) Diet: advance as tolerated, other Additional Instructions: Further management per director of hospice. Very poor prognosis. Aspiration precautions. Fall precautions. DNR status Follow up with: ALLISON MCCAIN MD [Primary Care Provider] - 3-5 Days
[2020-03-05 19:58] VITALS: BP 98/59
[2020-03-05] MEDS ORDERED: MEROPENEM/NS 1 GRAM/100 ML 1 GRAM/100 ML BAG IV SCH (22:00)
== END 2020-03-05 19:58 | disposition hospice, inpatient (51) | DRG 871 ==
LOC: ED 14:53 → CC1 22:42 → 4A 02-22 22:01
PROVIDERS: ADMIT Internal Medicine Geriatric Medicine; ATTEND Internal Medicine
PROC: 0BH17EZ Insertion of Endotracheal Airway into Trachea, Via Natural or Artificial Opening (ICD-10-PCS; principal; 2020-02-17)
PROC: 5A1945Z Respiratory Ventilation, 24-96 Consecutive Hours (ICD-10-PCS; 2020-02-17)
PROC: 4A033R1 Measurement of Arterial Saturation, Peripheral, Percutaneous Approach (ICD-10-PCS; 2020-02-17)
PROC: 06HY33Z Insertion of Infusion Device into Lower Vein, Percutaneous Approach (ICD-10-PCS; 2020-02-17)
PROC: 30233N1 Transfusion of Nonautologous Red Blood Cells into Peripheral Vein, Percutaneous Approach (ICD-10-PCS; 2020-02-21)
DX: A41.9 Sepsis, unspecified organism (principal); J96.01 Acute respiratory failure with hypoxia; I21.4 Non-ST elevation (NSTEMI) myocardial infarction; N17.0 Acute kidney failure with tubular necrosis; J18.9 Pneumonia, unspecified organism; R65.21 Severe sepsis with septic shock; E87.2 Acidosis; N39.0 Urinary tract infection, site not specified; I69.354 Hemiplegia and hemiparesis following cerebral infarction affecting left non-dominant side; M62.82 Rhabdomyolysis; F03.90 Unspecified dementia, unspecified severity, without behavioral disturbance, psychotic disturbance, mood disturbance, and anxiety; I73.9 Peripheral vascular disease, unspecified; M10.9 Gout, unspecified; I12.9 Hypertensive chronic kidney disease with stage 1 through stage 4 chronic kidney disease, or unspecified chronic kidney disease; N18.9 Chronic kidney disease, unspecified; E11.22 Type 2 diabetes mellitus with diabetic chronic kidney disease; E87.5 Hyperkalemia; E78.2 Mixed hyperlipidemia; D64.9 Anemia, unspecified; D69.6 Thrombocytopenia, unspecified; E87.6 Hypokalemia; E83.42 Hypomagnesemia; R13.12 Dysphagia, oropharyngeal phase; E83.39 Other disorders of phosphorus metabolism; Z03.818 Encounter for observation for suspected exposure to other biological agents ruled out
CPT/HCPCS: 31500; 31720; 36415; 36600; 70450; 71045; 74018; 76770; 78580; 80048; 80053; 80061; 80202; 81001; 82043; 82140; 82436; 82550; 82553; 82570; 82728; 82803; 82962; 83615; 83735; 83880; 84100; 84145; 84156; 84300; 84443; 84484; 85007; 85014; 85018; 85025; 85027; 85049; 85379; 85520; 85610; 85730; 86140; 86850; 86900; 86901; 86920; 87040; 87070; 87086; 87205; 87641; 89050; 90732; 93005; 93306; 93970; 94002; 94003; 94640; 94667; 94668; 94669; 94760; G0378; A9270-GY; A9540; J0171; J0456; J0692; J0696; J0885; J1644; J1650; J1815; J1940; J2185; J3010; J3370; J3475; J7030; J7040; J7050; J7070; J7120; P9016; P9047; U0003-CS